=== PATIENT | female | born 1955 | race Caucasian/White ===

== ENCOUNTER 2017-06-22 12:07 | Inpatient (IN) | payer OTHER ==
[2017-06-22] VITALS (18 sets, daily range): BP systolic 107–143; BP diastolic 75–95; PULSE 92–126; RESP 18–36; TEMP 97.9–101.2; O2SAT 94–100
[~2017-06-22] VITALS: Ht 162.6 cm; Wt 55.0 kg
[~2017-06-22 12:07] MED LIST: DARV PO; PENI500T PO; Z.0.NO CURRENT MEDS
[2017-06-22] MEDS ORDERED: PROPOFOL 1000 MG/100 ML INJ 100 ML ONE ×2 (12:25)
[2017-06-22] MEDS ORDERED: SODIUM CHLOR 0.9% 1000 ML INJ 1,000 ML IV SCH ×6 (12:25→12:45)
[2017-06-22] MEDS ORDERED: SODIUM CHLORIDE 0.9% FLUSH 10 ML FLUSH IVF PRN ×2 (12:30)
[2017-06-22] MEDS ORDERED: SODIUM CHLORIDE 0.9% FLUSH 5 ML FLUSH IV FLUSH PRN ×4 (12:30→15:45)
[2017-06-22] MEDS ORDERED: ETOMIDATE 20 MG/10 ML VIAL IVP ONE ×2 (12:30)
[2017-06-22] MEDS ORDERED: methylPREDNISolone SOD SUCC 125 MG/2 ML VIAL IV PUSH ONE ×2 (12:45)
[2017-06-22] MEDS ORDERED: HYDROmorphone HCL PF 1 MG/ML VIAL IV PUSH ONE ×2 (12:45)
[2017-06-22] MEDS: RESP: ALBUTEROL 2.5 MG/IPRATROPIUM 0.5 MG NEB (SCH) INH ×10 (13:00→21:42)
[2017-06-22] MEDS ORDERED: SUCCINYLCHOLINE CHLORIDE 200 MG/10 ML VIAL ONE ×2 (13:15)
[2017-06-22 13:51] LABS: AUTOMATED NEUTROPHIL # 8.5 TH/MM3 (1.8-7.7); BASOPHIL % 0.2 % (0.0-2.0); HEMATOCRIT 49.8 % (35.0-46.0); HEMOGLOBIN 16.2 GM/DL (11.6-15.3); LYMPH % 6.9 % (9.0-44.0); LYMPHOCYTE # 0.7 TH/MM3 (1.0-4.8); MEAN CELL VOLUME 95.5 FL (80.0-100.0); MEAN CORPUSCULAR HEMOGLOBIN 31.2 PG (27.0-34.0); MEAN CORPUSCULAR HGB CONC 32.6 % (32.0-36.0); MONO % 4.8 % (0.0-8.0); MONOCYTE # 0.5 TH/MM3 (0-0.9); NEUT % 88.1 % (16.0-70.0); PLATELET COUNT 137 TH/MM3 (150-450); RED BLOOD COUNT 5.21 MIL/MM3 (4.00-5.30); RED CELL DISTRIBUTION WIDTH 13.2 % (11.6-17.2); WHITE BLOOD COUNT 9.6 TH/MM3 (4.0-11.0)
[2017-06-22 13:55] LABS: INTERNATIONAL NORMALIZED RATIO 1.4 RATIO; PROTHROMBIN TIME - PATIENT 15.8 SEC (9.8-11.6)
[2017-06-22 13:59] LABS: LACTIC ACID SEPSIS PROTOCOL 2.7 mmol/L (0.4-2.0)
[2017-06-22 14:01] LABS: ALBUMIN 3.7 GM/DL (3.4-5.0); BICARBONATE 23.4 MEQ/L (21.0-32.0); BLOOD UREA NITROGEN 67 MG/DL (7-18); CALCIUM 8.7 MG/DL (8.5-10.1); CHLORIDE 104 MEQ/L (98-107); CREATININE 3.48 MG/DL (0.50-1.00); GLOMERULAR FILTRATION RATE 13 ML/MIN (>89); GLUCOSE,RANDOM 126 MG/DL (74-106); SODIUM (NA) 140 MEQ/L (136-145)
[2017-06-22 14:09] LABS: ALKALINE PHOSPHATASE 88 U/L (45-117); TOTAL BILIRUBIN ADULT 0.5 MG/DL (0.2-1.0); TOTAL PROTEIN 8.7 GM/DL (6.4-8.2)
--- NOTE | 2017-06-22 14:15 | RADRPT ---
EXAM DATE/TIME: 06/22/2017 13:10 [facility] COMPARISON: No previous studies available for comparison. INDICATIONS : Post intubation and OG tube placement. MEDICAL HISTORY : Unobtainable. SURGICAL HISTORY : Unobtainable. ENCOUNTER: Initial ACUITY: 1 day PAIN SCORE: Non-responsive. LOCATION: Bilateral chest FINDINGS: ET and nasogastric tube in good position. The lungs are hyperinflated but clear. The heart and pulmo nary vascularity are normal. CONCLUSION: Support apparatus in good position. Rudy Meng MD FACR on June 22, 2017 at 14:13 Board Certified Radiologist. This report was verified electronically.
[2017-06-22 14:24] LABS: ACETAMINOPHEN LESS THAN 2.0 MCG/ML (10.0-30.0)
[2017-06-22 14:27] LABS: AMORPHOUS SEDIMENT, URINE FEW; BACTERIA, URINE RARE /hpf; BILIRUBIN, URINE NEG (NEG); BLOOD, URINE MOD (NEG); GLUCOSE,URINE TRACE mg/dL (NEG); HYALINE CAST, URINE 3 /lpf (RARE); KETONE, URINE NEG (NEG); MUCUS URINE FEW /lpf (OCC); NITRITE,URINE NEG (NEG); SQUAMOUS EPITHELIAL CELL URINE 4 /hpf (0-5); URINE COLOR YELLOW (YELLW/STRAW); URINE LEUKOCYTE ESTERASE TRACE (NEG)
[2017-06-22 14:29] LABS: ALT (GPT) 7549 U/L (10-53)
--- NOTE | 2017-06-22 14:33 | RADRPT ---
EXAM DATE/TIME: 06/22/2017 14:22 [facility] COMPARISON: No previous studies available for comparison. INDICATIONS : Found unresponsive. RADIATION DOSE: 31.29 CTDIvol (mGy) MEDICAL HISTORY : Non-responsive. SURGICAL HISTORY : Non-responsive. ENCOUNTER: Initial ACUITY: 1 day PAIN SCALE: Non-responsive LOCATION: cranial TECHNIQUE: Multiple contiguous axial images were obtained of the head. Using automated exposure control and adj ustment of the mA and/or kV according to patient size, radiation dose was kept as low as reasonably a chievable to obtain optimal diagnostic quality images. DICOM format image data is available electro nically for review and comparison. FINDINGS: There are findings of ischemic infarct involving the insular cortex on the left side with loss of the cam-white junction. There is no significant mass effect or midline shift. No extra-axial fluid lawanda ections are identified. Posterior fossa structures are unremarkable. The infarct measures approximate ly 2.5 cm in diameter. CONCLUSION: 1. Acute ischemic infarct involving the left insular cortex Jose Richard MD on June 22, 2017 at 14:30 Board Certified Radiologist. This report was verified electronically.
[2017-06-22 14:38] LABS: AST (GOT) 13264 U/L (15-37)
[2017-06-22] MEDS ORDERED: CHLORHEXIDINE GLUCONATE 2 % 1 PACK (2 CLOTHS) TOP PRN ×2 (15:15)
[2017-06-22] MEDS ORDERED: CEFEPIME INJ 1,000 MG in SODIUM CHLORIDE 0.9% INJ 100 ML IV ONE ×4 (15:15)
[2017-06-22] MEDS ORDERED: MAGNESIUM HYDROXIDE SUSP 30 ML CUP PO PRN ×2 (15:15)
[2017-06-22] MEDS ORDERED: MISCELLANEOUS NURSING INFORMATION XX SCH ×2 (15:15)
[2017-06-22] MEDS ORDERED: fentaNYL DRIP 250 ML IV PRN ×2 (15:15)
[2017-06-22] MEDS ORDERED: PROPOFOL 1000 MG/100 ML INJ 100 ML IV PRN ×2 (15:15)
[2017-06-22] MEDS ORDERED: VANCOMYCIN INJ 850 MG in SODIUM CHLOR 0.9% 250 ML INJ 250 ML IV ONE ×4 (15:15)
[2017-06-22] MEDS ORDERED: LACTULOSE SYRUP 20 GM/30 ML CUP PO PRN ×2 (15:15)
[2017-06-22] MEDS ORDERED: SODIUM CHLORIDE 0.9% FLUSH 10 ML FLUSH IV FLUSH PRN ×2 (15:15)
[2017-06-22] MEDS ORDERED: SENNOSIDES 8.6 MG TAB PO PRN ×2 (15:15)
[2017-06-22] MEDS ORDERED: ONDANSETRON HCL 4 MG/2 ML VIAL IV PRN ×2 (15:15)
[2017-06-22] MEDS ORDERED: BISACODYL 10 MG SUPP RECTAL PRN ×2 (15:15)
[2017-06-22] MEDS ORDERED: ACETAMINOPHEN 325 MG TAB PO PRN ×2 (15:15)
--- NOTE | 2017-06-22 15:31 | PD ---
HPI Chief Complaint: Respiratory Distress Time Seen by Provider: 12:25 Travel History International Travel<30 days: No Contact w/Intl Traveler<30days: No Traveled to known affect area: No History of Present Illness HPI This is a 62-year-old female who presents to the emergency department having been found in a chair poorly responsive. 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 Today is Tuesday. EMS said the patient had urinated on herself. She was poorly responsive and had pinpoint pupils. They administered 0.4 of Narcan at which point she moved all of her extremities but didn't vocalize anything intelligible. PFSH Past Medical History Respiratory: Yes (COPD) Tetanus Vaccination: Unknown Past Surgical History Abdominal Surgery: Yes Hysterectomy: Yes Social History Alcohol Use: No (unknown ) Tobacco Use: Yes (1 PACK A DAY FOR 20 YEARS) Substance Use: No (unknown ) Allergies-Medications (Allergen,Severity, Reaction): Coded Allergies: No Known Allergies (Verified , 12/11/08) Reported Meds & Prescriptions Reported Meds & Active Scripts Active Review of Systems ROS Limitations: Altered Mental Status Physical Exam Narrative GENERAL: Disheveled SKIN: Dry with skin tenting HEAD: Atraumatic. Normocephalic. EYES: Pupils 4 mm, equal and reactive no injection or drainage. ENT: Dry mucous membranes NECK: Trachea midline. CARDIOVASCULAR: Tachycardic. No murmur appreciated. RESPIRATORY: Tachypneic, prolonged expiratory phase GASTROINTESTINAL: Abdomen soft, non-tender, nondistended. MUSCULOSKELETAL: 1+ dependent edema NEUROLOGICAL: Moves all extremities. Gaze deviation to the left. Does not follow commands or make sounds. Data Data Last Documented VS Vital Signs Date Time Temp Pulse Resp B/P (MAP) Pulse Ox O2 Delivery O2 Flow Rate FiO2 06/22/17 14:32 99.7 96 18 121/80 (94) 100 Ventilator 50 Orders Orders Propofol 1000 Mg/100 Ml Inj (Diprivan 10 (06/22/17 12:25) Electrocardiogram (06/22/17 12:25) Ammonia (06/22/17 12:25) Complete Blood Count With Diff (06/22/17 12:25) Comprehensive Metabolic Panel (06/22/17 12:25) Creatine Kinase (Cpk) (06/22/17 12:25) Prothrombin Time / Inr (Pt) (06/22/17 12:25) Act Partial Throm Time (Ptt) (06/22/17 12:25) Troponin I (06/22/17 12:25) Thyroid Stimulating Hormone (06/22/17 12:25) Urinalysis - C+S If Indicated (06/22/17 12:25) Lactic Acid Sepsis Protocol (06/22/17 12:25) Arterial Blood Gas (Abg) (06/22/17 12:25) Blood Culture (06/22/17 12:25) Chest, Single Ap (06/22/17 12:25) Ct Brain W/O Iv Contrast(Rout) (06/22/17 12:25) Blood Glucose (06/22/17 12:25) Ecg Monitoring (06/22/17 12:25) Iv Access Insert/Monitor (06/22/17 12:25) Oximetry (06/22/17 12:25) Sodium Chloride 0.9% Flush (Ns Flush) (06/22/17 12:30) Sodium Chlor 0.9% 1000 Ml Inj (Ns 1000 M (06/22/17 12:25) Drug Screen, Random Urine (06/22/17 12:25) Alcohol (Ethanol) (06/22/17 12:25) Tylenol (Acetaminophen) (06/22/17 12:25) Salicylates (Aspirin) (06/22/17 12:25) Etomidate Inj (Amidate Inj) (06/22/17 12:30) Albuterol-Ipratropium Neb (Duoneb Neb) (06/22/17 12:30) Sodium Chloride 0.9% Flush (Ns Flush) (06/22/17 12:30) Restraints Non-Violent DENISE.Q3H (06/22/17 12:30) ^ Infusion (06/22/17 12:30) RASS (06/22/17 12:30) Neurological Rass Scale DENISE.Q2H (06/22/17 12:30) Neurological Rass Scale Q30MX2,Q2HX4,Q4H (06/22/17 12:30) Sodium Chlor 0.9% 1000 Ml Inj (Ns 1000 M (06/22/17 12:45) Sodium Chlor 0.9% 1000 Ml Inj (Ns 1000 M (06/22/17 12:45) Methylprednisolone So Succ Inj (Solumedr (06/22/17 12:45) Urinary Catheter Insert/Apply (06/22/17 12:43) Vahid-Gastric Tube Insert/Mon (06/22/17 12:43) Hydromorphone Pf Inj (Dilaudid Pf Inj) (06/22/17 12:45) Succinylcholine Inj (Quelicin Inj) (06/22/17 13:15) CKMB (06/22/17 12:30) CKMB% (06/22/17 12:30) Urine Culture (06/22/17 13:30) Lactic Acid (06/22/17 14:34) Vancomycin Inj (Vancomycin Inj) (06/22/17 15:15) Cefepime Inj (Maxipime Inj) (06/22/17 15:15) Admit To Inpatient (06/22/17 ) Code Status (06/22/17 15:09) Vital Signs (Adult) DENISE.Q1H (06/22/17 15:09) Activity Bed Rest (06/22/17 15:09) Neuro Checks . ORDERED (06/22/17 15:09) Intake + Output Q1H (06/22/17 15:09) Bedside Glucose DENISE.BGM (06/22/17 15:09) Insert Ng Tube (06/22/17 15:09) Diet Npo (06/22/17 Dinner) Sodium Chlor 0.9% 1000 Ml Inj (Ns 1000 M (06/22/17 15:09) Sodium Chloride 0.9% Flush (Ns Flush) (06/22/17 15:15) Sodium Chloride 0.9% Flush (Ns Flush) (06/22/17 21:00) Acetaminophen (Tylenol) (06/22/17 15:15) Famotidine Inj (Pepcid Inj) (06/22/17 21:00) Lorazepam Inj (Ativan Inj) (06/22/17 15:15) Artificial Tears Opth Soln (Tears Natura (06/22/17 18:00) Ondansetron Inj (Zofran Inj) (06/22/17 15:15) Albuterol-Ipratropium Neb (Duoneb Neb) (06/22/17 16:00) Albuterol Neb (Albuterol Neb) (06/22/17 15:15) Complete Blood Count With Diff (06/23/17 04:00) Comprehensive Metabolic Panel (06/23/17 04:00) Creatine Kinase (Cpk) (06/22/17 15:09) Troponin I (06/22/17 22:00) Troponin I (06/23/17 04:00) Act Partial Throm Time (Ptt) (06/23/17 04:00) Prothrombin Time / Inr (Pt) (06/23/17 04:00) Magnesium (Mg) (06/23/17 04:00) Phosphorus (Po4) (06/23/17 04:00) Lactic Acid (06/23/17 04:00) Blood Culture (06/22/17 15:09) Echo 2d Comp With Doppler (06/22/17 15:09) Juvenile Officer / Telemetry DENISE.Q8H (06/22/17 15:09) Heparin Inj (Heparin Inj) (06/22/17 15:15) ^ Initiate Protocol (06/22/17 15:09) Instruction (06/22/17 15:09) [facility] [place] Nursing Information (06/22/17 15:15) Chlorhexidine 2% Cloth (Chlorhexidine 2% (06/23/17 04:00) Chlorhexidine 2% Cloth (Chlorhexidine 2% (06/22/17 15:15) [facility] Pcr Surveillance (06/22/17 15:09) Docusate Sodium-Senna (Indy-Colace) (06/22/17 21:00) Magnesium Hydroxide Liq (Milk Of Magnesi (06/22/17 15:15) Sennosides (Senokot) (06/22/17 15:15) Bisacodyl Supp (Dulcolax Supp) (06/22/17 15:15) Lactulose Liq (Lactulose Liq) (06/22/17 15:15) Inpatient Certification (06/22/17 ) Admit Order (Ed Use Only) (06/22/17 15:12) Labs Laboratory Tests Test 06/22/17 12:30 06/22/17 12:40 06/22/17 13:00 06/22/17 13:30 White Blood Count 9.6 TH/MM3 Red Blood Count 5.21 MIL/MM3 Hemoglobin 16.2 GM/DL Hematocrit 49.8 % Mean Corpuscular Volume 95.5 FL Mean Corpuscular Hemoglobin 31.2 PG Mean Corpuscular Hemoglobin Concent 32.6 % Red Cell Distribution Width 13.2 % Platelet Count 137 TH/MM3 Mean Platelet Volume 10.0 FL Neutrophils (%) (Auto) 88.1 % Lymphocytes (%) (Auto) 6.9 % Monocytes (%) (Auto) 4.8 % Eosinophils (%) (Auto) 0.0 % Basophils (%) (Auto) 0.2 % Neutrophils # (Auto) 8.5 TH/MM3 Lymphocytes # (Auto) 0.7 TH/MM3 Monocytes # (Auto) 0.5 TH/MM3 Eosinophils # (Auto) 0.0 TH/MM3 Basophils # (Auto) 0.0 TH/MM3 CBC Comment DIFF FINAL Differential Comment Prothrombin Time 15.8 SEC Prothromb Time International Ratio 1.4 RATIO Activated Partial Thromboplast Time 24.3 SEC Blood Urea Nitrogen 67 MG/DL Creatinine 3.48 MG/DL Random Glucose 126 MG/DL Total Protein 8.7 GM/DL Albumin 3.7 GM/DL Calcium Level 8.7 MG/DL Alkaline Phosphatase 88 U/L Aspartate Amino Transf (AST/SGOT) 54854 U/L Alanine Aminotransferase (ALT/SGPT) 7549 U/L Total Bilirubin 0.5 MG/DL Sodium Level 140 MEQ/L Potassium Level 4.9 MEQ/L Chloride Level 104 MEQ/L Carbon Dioxide Level 23.4 MEQ/L Anion Gap 13 MEQ/L Estimat Glomerular Filtration Rate 13 ML/MIN Lactic Acid Level 2.7 mmol/L Ammonia 71 MCMOL/L Total Creatine Kinase 754 U/L Creatine Kinase MB 7.4 NG/ML Creatine Kinase MB % 1.0 % Troponin I 2.20 NG/ML Thyroid Stimulating Hormone 3rd Gen 0.283 uIU/ML Salicylates Level 4.9 MG/DL Acetaminophen Level LESS THAN 2.0 MCG/ML Ethyl Alcohol Level LESS THAN 3 MG/DL Blood Gas Puncture Site RT RADIAL Blood Gas Patient Temperature 98.6 Blood Gas HCO3 22 mmol/L Blood Gas Base Excess -2.7 mmol/L Blood Gas Oxygen Saturation 91 % Arterial Blood pH 7.38 Arterial Blood Partial Pressure CO2 38 mmHg Arterial Blood Partial Pressure O2 74 mmHG Arterial Blood Oxygen Content 20.6 Vol % Arterial Blood Carboxyhemoglobin 2.5 % Arterial Blood Methemoglobin 0.8 % Blood Gas Hemoglobin 16.2 G/DL Oxygen Delivery Device VENTILATOR Blood Gas Ventilator Setting PRVC/AC Blood Gas Inspired Oxygen 50 % Urine Color YELLOW Urine Turbidity HAZY Urine pH 6.0 Urine Specific [place] 1.015 Urine Protein 100 mg/dL Urine Glucose (UA) TRACE mg/dL Urine Ketones NEG mg/dL Urine Occult Blood MOD Urine Nitrite NEG Urine Bilirubin NEG Urine Urobilinogen LESS THAN 2.0 MG/DL Urine Leukocyte Esterase TRACE Urine RBC 1 /hpf Urine WBC 6 /hpf Urine Squamous Epithelial Cells 4 /hpf Urine Amorphous Sediment FEW Urine Bacteria RARE /hpf Urine Hyaline Casts 3 /lpf Urine Granular Casts 1 /lpf Urine Mucus FEW /lpf Microscopic Urinalysis Comment CATH-CULTURE IND Urine Opiates Screen NEG Urine Barbiturates Screen NEG Urine Amphetamines Screen NEG Urine Benzodiazepines Screen POS Urine Cocaine Screen NEG Urine Cannabinoids Screen POS MDM Medical Decision Making Medical Screen Exam Complete: Yes Emergency Medical Condition: Yes Interpretation(s) Temperature is 101.2, tachycardic, tachypneic No leukocytosis Renal insufficiency Transaminitis CK is 754 Ammonia 71 Troponin is 2.2 Lactic acid is 2.7 Urine drug screen is positive for benzodiazepines and cannabinoid Urinalysis: 6 white blood cells Last [address] 06/22/17 1225 Signed Impressions: Service Date/Time: Thursday, June 22, 2017 14:22 - CONCLUSION: 1. Acute ischemic infarct involving the left insular cortex Jose Richard MD Chest X-Ray 06/22/17 1225 Signed Impressions: Service Date/Time: Thursday, June 22, 2017 13:10 - CONCLUSION: Support apparatus in good position. Rudy Meng MD FACR Differential Diagnosis Substance overdose, stroke, rhabdomyolysis, infection Narrative Course This is a 62-year-old female who presents to the emergency department poorly responsive having been found in a chair that she had moved from in 2 days. She has a neurologic exam concerning for stroke. She was acutely dyspneic and tachypneic, and not protecting her airway so she was intubated in the emergency department. She was febrile and tachycardic and cultures were obtained and she was given broad-spectrum antibiotics. She was given IV hydration. She was found to have a troponin of 2.2. A decision was made not to anticoagulate her given CT findings of an acute stroke. She is not a TPA candidate as we don't know when the onset of symptoms was and it does appear to be at least 24 hours ago. Patient also has acute hepatitis. She'll be admitted to the intensive care unit for close management. Critical Care Narrative Aggregate critical care time was 45 minutes. Time to perform other separately billable procedures was not included in the critical care time. My time did not include minutes spent treating any other patients simultaneously or on activities that did not directly contribute to the patient's treatment. The services I provided to this patient were to treat and/or prevent clinically significant deterioration that could result in: disability, I provided critical care services requiring my management, as noted below: Chart data review, documentation time, medication orders and management, vital sign assessments/reviewing monitor data, ordering and reviewing lab tests, ordering and interpreting/reviewing x-rays and diagnostic studies, care of the patient and discussion of the patient with the admitting physicians. Procedures Procedure Narrative After the risks and benefits were discussed the following procedure was performed: INTUBATION: The patient was put in optimal position for the procedure. Rapid sequence intubation was initiated by me using 20 milligrams of etomidate IV and 50 milligrams of rocuronium IV. The patient was intubated with a 8.0 cuffed endotracheal tube. Tube placement was confirmed by visualization of the tube and balloon passing through the cords, capnometry and subsequent chest x-ray. Breath sounds were equal and well aerated bilaterally postintubation. No breath sounds over stomach. Patient tolerated procedure well. Physician Communication Physician Communication Discussed with Dr. Koenig Diagnosis Primary Impression: Stroke Qualified Codes: I63.9 - Cerebral infarction, unspecified Admitting Information Admitting Physician Requests: Admit Halle Power MD Jun 22, 2017 15:31
[2017-06-22] MEDS ORDERED: LABETALOL HCL 100 MG/20 ML VIAL IV PRN ×2 (15:45)
[2017-06-22] MEDS ORDERED: DEXTROSE 50% IN WATER 50 ML VIAL(D50) IV PUSH PRN (15:45)
[2017-06-22] MEDS ORDERED: GLUCAGON 1 MG/ML VIAL OTHER PRN ×2 (15:45)
--- NOTE | 2017-06-22 15:45 | HHI.HP ---
[facility] Service Critical Care Medicine Primary Care Physician No Primary Care Physician Admission Diagnosis Acute respiratory failure stroke Diagnosis: (1) Acute respiratory failure Diagnosis: Principal (2) Anxiety Diagnosis: Principal (3) COPD (chronic obstructive pulmonary disease) Diagnosis: Principal (4) Chronically on benzodiazepine therapy Diagnosis: Principal (5) Low TSH level Diagnosis: Principal (6) Elevated troponin Diagnosis: Principal (7) Elevated CPK Diagnosis: Principal (8) Serum ammonia increased Diagnosis: Principal (9) Elevated transaminase level Diagnosis: Principal (10) Lactic acidosis Diagnosis: Principal (11) Hyperglycemia Diagnosis: Principal (12) Tobacco abuse Diagnosis: Principal (13) Tetrahydrocannabinol (THC) use disorder, mild, abuse Diagnosis: Principal (14) Acute kidney injury Diagnosis: Principal (15) Thrombocytopenia Diagnosis: Principal (16) Polycythemia Diagnosis: Principal (17) CVA (cerebral vascular accident) Diagnosis: Principal (18) Stroke Diagnosis: Principal (19) Incontinence Diagnosis: Principal (20) Cystitis Diagnosis: Principal Chief Complaint: Last seen her normal health Tuesday unresponsive on couch Travel History International Travel<30 Days: No Contact w/Intl Traveler <30 Da: No Traveled to Known Affected Are: No Sepsis Criteria Severe Sepsis (+one): Lactate >2 History of Present Illness This is a 62-year-old female. Date of admission 06/22/2017. Past medical history includes COPD, depression and ongoing tobaccoism. She chronically uses alprazolam. 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 She presents to [facility] with a history of since Tuesday he's been unable to get her out of the chair. EMS said the patient had urinated on herself. She was poorly responsive and had 1 mm pinpoint pupils. They administered 0.4 of Narcan at which point she moved all of her extremities but didn't vocalize anything intelligible. She was emergently intubated using succinylcholine and etomidate. Included CT the brain which revealed 2.5 cm left insular cortex CVA, patient was noted be in acute kidney injury with a creatinine of 3.8. Lactic acid 2.7. Elevated transaminases/pneumonia and elevated troponin of 2.2. EKG showed normal sinus rhythm with nonspecific ST-T changes. UA revealed cystitis. Urine toxicology screen positive for benzodiazepine and THC. Review of Systems ROS Limitations: Intubated Past Family Social History Allergies: Coded Allergies: No Known Allergies (Verified , 2/18/09) Past Medical History COPD Depression Chronic benzodiazepine use Past Surgical History Appendectomy Reported Medications Alprazolam 0.5 mg as needed Oxybutynin Active Ordered Medications Reviewed in EMR Family History Mother and father is unknown/not documented Social History Positive tobacco is one pack per day 20 years. Unknown alcohol or IV drug use. Positive for THC Physical Exam Vital Signs Vital Signs Date Time Temp Pulse Resp B/P (MAP) Pulse Ox O2 Delivery O2 Flow Rate FiO2 06/22/17 15:32 96 50 06/22/17 15:24 99.6 92 18 117/78 (91) 99 Ventilator 50 06/22/17 14:32 99.7 96 18 121/80 (94) 100 Ventilator 50 06/22/17 14:20 100 100 06/22/17 14:00 99.8 96 18 131/86 (101) 100 Ventilator 50 06/22/17 13:30 98 18 130/82 (98) 98 Ventilator 50 06/22/17 13:00 105 18 133/95 (108) 98 Ventilator 50 06/22/17 12:30 98 50 06/22/17 12:22 50 06/22/17 12:22 124 20 138/84 (102) 99 Ventilator 50 06/22/17 12:15 36 94 Non-Rebreather 100 06/22/17 12:15 101.2 126 34 143/90 (107) 94 06/22/17 12:15 126 36 90 Non-Rebreather Physical Exam GENERAL: 62 oh female, critically ill currently orotracheally intubated SKIN: Warm and dry. No rash. HEAD: Atraumatic. Normocephalic. EYES: Pupils equal and round about 1 mm bilaterally and sluggish. No scleral icterus. No injection or drainage. ENT: No nasal bleeding or discharge. Mucous membranes pink and moist. NECK: Trachea midline. No JVD. CARDIOVASCULAR: Regular rate and rhythm. S1, S2. No cervical without murmur RESPIRATORY: No accessory muscle use. Clear to auscultation. Breath sounds equal bilaterally. GASTROINTESTINAL: Abdomen soft, non-tender, nondistended. No bowel sounds are appreciated MUSCULOSKELETAL: Extremities 1+ pitting lower extremity edema. No obvious deformities. NEUROLOGICAL: GCS 3T. Positive coronary fix. Positive gag. Currently not withdrawing to pain status post intubation Laboratory Laboratory Tests Test 06/22/17 12:30 06/22/17 12:40 06/22/17 13:00 06/22/17 13:30 White Blood Count 9.6 Red Blood Count 5.21 Hemoglobin 16.2 Hematocrit 49.8 Mean Corpuscular Volume 95.5 Mean Corpuscular Hemoglobin 31.2 Mean Corpuscular Hemoglobin Concent 32.6 Red Cell Distribution Width 13.2 Platelet Count 137 Mean Platelet Volume 10.0 Neutrophils (%) (Auto) 88.1 Lymphocytes (%) (Auto) 6.9 Monocytes (%) (Auto) 4.8 Eosinophils (%) (Auto) 0.0 Basophils (%) (Auto) 0.2 Neutrophils # (Auto) 8.5 Lymphocytes # (Auto) 0.7 Monocytes # (Auto) 0.5 Eosinophils # (Auto) 0.0 Basophils # (Auto) 0.0 CBC Comment DIFF FINAL Differential Comment Prothrombin Time 15.8 Prothromb Time International Ratio 1.4 Activated Partial Thromboplast Time 24.3 Blood Urea Nitrogen 67 Creatinine 3.48 Random Glucose 126 Total Protein 8.7 Albumin 3.7 Calcium Level 8.7 Alkaline Phosphatase 88 Aspartate Amino Transf (AST/SGOT) 66008 Alanine Aminotransferase (ALT/SGPT) 7549 Total Bilirubin 0.5 Sodium Level 140 Potassium Level 4.9 Chloride Level 104 Carbon Dioxide Level 23.4 Anion Gap 13 Estimat Glomerular Filtration Rate 13 Lactic Acid Level 2.7 Ammonia 71 Total Creatine Kinase 754 Creatine Kinase MB 7.4 Creatine Kinase MB % 1.0 Troponin I 2.20 Thyroid Stimulating Hormone 3rd Gen 0.283 Salicylates Level 4.9 Acetaminophen Level LESS THAN 2.0 Ethyl Alcohol Level LESS THAN 3 Blood Gas Puncture Site RT RADIAL Blood Gas Patient Temperature 98.6 Blood Gas HCO3 22 Blood Gas Base Excess -2.7 Blood Gas Oxygen Saturation 91 Arterial Blood pH 7.38 Arterial Blood Partial Pressure CO2 38 Arterial Blood Partial Pressure O2 74 Arterial Blood Oxygen Content 20.6 Arterial Blood Carboxyhemoglobin 2.5 Arterial Blood Methemoglobin 0.8 Blood Gas Hemoglobin 16.2 Oxygen Delivery Device VENTILATOR Blood Gas Ventilator Setting PRVC/AC Blood Gas Inspired Oxygen 50 Urine Color YELLOW Urine Turbidity HAZY Urine pH 6.0 Urine Specific [place]ville 1.015 Urine Protein 100 Urine Glucose (UA) TRACE Urine Ketones NEG Urine Occult Blood MOD Urine Nitrite NEG Urine Bilirubin NEG Urine Urobilinogen LESS THAN 2.0 Urine Leukocyte Esterase TRACE Urine RBC 1 Urine WBC 6 Urine Squamous Epithelial Cells 4 Urine Amorphous Sediment FEW Urine Bacteria RARE Urine Hyaline Casts 3 Urine Granular Casts 1 Urine Mucus FEW Microscopic Urinalysis Comment CATH-CULTURE IND Urine Opiates Screen NEG Urine Barbiturates Screen NEG Urine Amphetamines Screen NEG Urine Benzodiazepines Screen POS Urine Cocaine Screen NEG Urine Cannabinoids Screen POS Date/Time Source Procedure Growth Status 06/22/17 12:20 Blood Peripheral Aerobic Blood Culture Pending Received 06/22/17 12:20 Blood Peripheral Anaerobic Blood Culture Pending Received 06/22/17 13:30 Urine Catheterized Urine Urine Culture Pending Received Result Diagram: 06/22/17 1230 06/22/17 1230 Imaging Last Impressions Head CT 06/22/17 1225 Signed Impressions: Service Date/Time: Thursday, June 22, 2017 14:22 - CONCLUSION: 1. Acute ischemic infarct involving the left insular cortex Jose Richard MD Chest X-Ray 06/22/17 1225 Signed Impressions: Service Date/Time: Thursday, June 22, 2017 13:10 - CONCLUSION: Support apparatus in good position. Rudy Meng MD FACR Caprini VTE Risk Assessment Caprini VTE Risk Assessment: Mod/High Risk (score >= 2) Caprini Risk Assessment Model Point Value = 1 Point Value = 2 Point Value = 3 Point Value = 5 Age 41-60 Minor surgery BMI > 25 kg/m2 Swollen legs Varicose veins or History of unexplained or recurrent spontaneous Oral contraceptives or hormone replacement Sepsis (< 1 month) Serious lung disease, including pneumonia (< 1 month) Abnormal pulmonary function Acute myocardial infarction Congestive heart failure (< 1 month) History of inflammatory bowel disease Medical patient at bed rest Age 61-74 Arthroscopic surgery Major open surgery (> 45 min) Laparoscopic surgery (> 45 min) Malignancy Confined to bed (> 72 hours) Immobilizing plaster cast Central venous access Age >= 75 History of VTE Family history of VTE Factor V Leiden Prothrombin [id number] Lupus anticoagulant Anticardiolipin antibodies Elevated serum homocysteine Heparin-induced thrombocytopenia Other congenital or acquired thrombophilia Stroke (< 1 month) Elective arthroplasty Hip, pelvis, or leg fracture Acute spinal cord injury (< 1 month) Prophylaxis Regimen Total Risk Factor Score Risk Level Prophylaxis Regimen 0-1 Low Early ambulation 2 Moderate Order ONE of the following: *Sequential Compression Device (SCD) *Heparin 5000 units SQ BID 3-4 Higher Order ONE of the following medications: *Heparin 5000 units SQ TID *Enoxaparin/Lovenox 40 mg SQ daily (WT < 150 kg, CrCl > 30 mL/min) *Enoxaparin/Lovenox 30 mg SQ daily (WT < 150 kg, CrCl > 10-29 mL/min) *Enoxaparin/Lovenox 30 mg SQ BID (WT < 150 kg, CrCl > 30 mL/min) AND/OR *Sequential Compression Device (SCD) 5 or more Highest Order ONE of the following medications: *Heparin 5000 units SQ TID (Preferred with Epidurals) *Enoxaparin/Lovenox 40 mg SQ daily (WT < 150 kg, CrCl > 30 mL/min) *Enoxaparin/Lovenox 30 mg SQ daily (WT < 150 kg, CrCl > 10-29 mL/min) *Enoxaparin/Lovenox 30 mg SQ BID (WT < 150 kg, CrCl > 30 mL/min) AND *Sequential Compression Device (SCD) Assessment and Plan Assessment and Plan Neuro/Psych: Left insular cortex CVA 2.5 cm Chronic benzodiazepine use THC use CT head 06/22 revealed 2.5 cm left insular cortex CVA MRI brain/MRA brain and carotid Dopplers ordered. 2-D echocardiogram ordered. Hemaglobin A1c/lipids ordered. Goal keep systolic blood pressure less than 220, diastolic was less than 120. Start on baby aspirin. Holding Hmg Co reductase secondary to elevated transaminases. CV: Hypertension Lactic acidosis Elevated troponin EKG revealed normal sinus rhythm 98. Nonspecific ST-T changes. Cycle troponins 2-D echocardiogram ordered. Baby aspirin 81 no grams daily Resp: Acute hypoxemic respiratory failure [facility] 16500/10/28/49 Ventilator bundle Bronchodilator therapy every 6 hours with albuterol nebs every 2 hours. Dyspnea Spontaneous breathing trials daily GI: Elevated transaminases Elevated ammonia Place NG tube to LIWS Famotidine for GI prophylaxis Docusate sodium/10 one tablet twice a day for bowel regimen Hepatic ultrasound ordered : History of incontinence Persaud catheter placed for accurate I's and O's in a critically ill patient Endo: Hyperglycemia Low TSH Sliding-scale insulin with Accu-Cheks to maintain euglycemia/every 6 hours Renal: Acute kidney injury Possible secondary to dehydration. Urine electrolytes/eosinophils pending Renal ultrasound Monitor urine output Accurate I's and O's Heme: Polycythemia Thrombocytopenia Monitor CBC daily. Follow trends ID: Cystitis Piperacillin/tazobactam day 1. Check UA culture FEN: Replace electrolytes as clinically indicated MSK: PT/OT evaluate and treat Access - Utilize peripheral IV. Central line if indicated Prophylaxis - GI - famotidine - DVT - SCD/heparin subcutaneous Critical Care: The total critical care time was 35 minutes. Time to perform other separately billable procedures was not included in the critical care time. Code Status Full code full code Discussed Condition With ED physician Dr. Power. No family available. Care plan discussed all questions answered. Problem Qualifiers (1) COPD (chronic obstructive pulmonary disease): Qualified Codes: J43.9 - Emphysema, unspecified (2) CVA (cerebral vascular accident): Qualified Codes: I63.9 - Cerebral infarction, unspecified (3) Stroke: Qualified Codes: I63.9 - Cerebral infarction, unspecified (4) Incontinence: Qualified Codes: R32 - Unspecified urinary incontinence Lewis Koenig MD Jun 22, 2017 15:45
[2017-06-22] MEDS ORDERED: niCARdipine INJ 25 MG in SODIUM CHLOR 0.9% 250 ML INJ 250 ML IV PRN ×4 (16:00)
[2017-06-22] MEDS: SODIUM CHLOR 0.9% 1000 ML INJ 1,000 ML IV SCH ×2 (16:06)
[2017-06-22] MEDS: HEPARIN SODIUM - SQ 10,000 UNITS/ML VIAL SQ SCH ×2 (16:06)
[2017-06-22] MEDS: INSULIN ASPART SUPPLEMENTAL SCALE SQ SCH ×4 (16:54→21:00)
--- NOTE | 2017-06-22 16:54 | RADRPT ---
EXAM DATE/TIME: 06/22/2017 15:56 [facility] COMPARISON: No previous studies available for comparison. INDICATIONS : Cerebrovascular accident. MEDICAL HISTORY : Chronic obstructive pulmonary disease. Tobacco use. Unable to obtain further medical information. SURGICAL HISTORY : Hysterectomy. Abdominal surgery. Unable to obtain ENCOUNTER: Initial ACUITY: 1 day PAIN SCORE: Nonresponsive. LOCATION: Bilateral neck PEAK SYSTOLIC VELOCITIES (cm/sec): ICA/CCA RATIO: Right: 1.5 Left: 0.9 ICA: Right: 74.6 Left: 59.3 CCA: Right: 49.3 Left: 65.4 ECA: Right: 38.4 Left: 34.1 VERTEBRAL: Right: 38.3 antegrade Left: 40.5 antegrade Elevated flow velocities and ICA/CCA ratios have been found to correlate with increased degrees of vessel stenosis, calculated as percentage of diameter relative to a normal segment of distal ICA/CCA FINDINGS: RIGHT CAROTID: No significant stenosis is visualized. The waveforms are within normal limits. LEFT CAROTID: No significant stenosis is visualized. The waveforms are within normal limits. VERTEBRAL ARTERIES: Antegrade flow is seen in both vertebral arteries. MISCELLANEOUS: None. CONCLUSION: No evidence of flow-limiting carotid stenosis. Christopher Leonardo MD on June 22, 2017 at 16:52 Board Certified Radiologist. This report was verified electronically.
[2017-06-22] MEDS: ARTIFICIAL TEARS OPTH SOLN 15 ML BTL EACH EYE SCH ×2 (17:25)
[2017-06-22] MEDS: LACTULOSE SYRUP 20 GM/30 ML CUP PO SCH ×4 (17:25→21:00)
[2017-06-22] MEDS: PIPERACIL-TAZO 2.25 GM PREMIX 50 ML IV SCH ×4 (17:25→22:50)
--- NOTE | 2017-06-22 17:33 | RADRPT ---
EXAM DATE/TIME: 06/22/2017 16:30 [facility] COMPARISON: No previous studies available for comparison. INDICATIONS : Increased lab values. MEDICAL HISTORY : Chronic obstructive pulmonary disease. Tobacco use. Unable to obtain further medical information. SURGICAL HISTORY : Hysterectomy. Abdominal surgery. Unable to obtain further. ENCOUNTER: Initial ACUITY: 1 day PAIN SCORE: Nonresponsive. LOCATION: Abdomen. MEASUREMENTS: LIVER: 18.6 cm length COMMON DUCT: 4 mm RIGHT KIDNEY: 11.0 x 5.0 x 4.9 cm LEFT KIDNEY: 11.9 x 4.4 x 5.9 cm SPLEEN: 11.4 cm length AORTA: 2.2cm maximal FINDINGS: LIVER: Normal echotexture without focal lesion or ductal dilatation. COMMON DUCT: No intraluminal mass or stone visualized. GALLBLADDER: Distended with internal debris. Moderate wall thickening. PANCREAS: The visualized portions are within normal limits. RIGHT KIDNEY: Calyces appearing mildly dilated. LEFT KIDNEY: Calyces appear mildly dilated SPLEEN: No focal lesion. Small adjacent splenule AORTA: Non aneurysmal. IVC: Within normal limits. CONCLUSION: Distended gallbladder with wall thickening and internal debris. Mild calyceal dilatation involving the kidneys bilaterally Christopher Leonardo MD on June 22, 2017 at 17:18 Board Certified Radiologist. This report was verified electronically.
[2017-06-22] MEDS: DOCUSATE SODIUM 50 MG/SENNA 8.6 MG TAB PO SCH ×2 (21:00)
[2017-06-22] MEDS ORDERED: SODIUM CHLORIDE 0.9% FLUSH 5 ML FLUSH IV FLUSH SCH ×2 (21:00)
[2017-06-22] MEDS: CHLORHEXIDINE 0.12% (ORAL KIT) 15 ML CUP MT SCH ×2 (21:40)
[2017-06-22] MEDS: SODIUM CHLORIDE 0.9% FLUSH 10 ML FLUSH IV FLUSH SCH ×2 (21:41)
[2017-06-22] MEDS: FAMOTIDINE 20 MG/2 ML VIAL IV PUSH SCH ×2 (21:41)
[2017-06-22 23:25] LABS: TROPONIN I 1.92 NG/ML (0.02-0.05)
[2017-06-23] VITALS (30 sets, daily range): BP systolic 106–132; BP diastolic 78–91; PULSE 88–101; RESP 16–18; TEMP 98.2–100.6; O2SAT 98–100
[2017-06-23] MEDS: SODIUM CHLOR 0.9% 1000 ML INJ 1,000 ML IV SCH ×2 (03:06)
[2017-06-23] MEDS: RESP: ALBUTEROL 2.5 MG/IPRATROPIUM 0.5 MG NEB (SCH) INH ×8 (03:06→20:42)
[2017-06-23] MEDS: HEPARIN SODIUM - SQ 10,000 UNITS/ML VIAL SQ SCH ×4 (03:07→16:51)
[2017-06-23] MEDS: CHLORHEXIDINE GLUCONATE 2 % 1 PACK (2 CLOTHS) TOP SCH ×2 (03:07)
[2017-06-23 04:30] LABS: INTERNATIONAL NORMALIZED RATIO 1.4 RATIO; PROTHROMBIN TIME - PATIENT 15.5 SEC (9.8-11.6)
[2017-06-23 04:40] LABS: ALBUMIN 2.5 GM/DL (3.4-5.0); ALKALINE PHOSPHATASE LESS THAN 10 U/L (45-117); BICARBONATE 17.7 MEQ/L (21.0-32.0); CALCIUM 7.1 MG/DL (8.5-10.1); CHLORIDE 115 MEQ/L (98-107); CHOLESTEROL 95 MG/DL (120-200); CHOLESTEROL/ HDL RATIO 2.47 RATIO; CREATININE 2.97 MG/DL (0.50-1.00); GLOMERULAR FILTRATION RATE 16 ML/MIN (>89); GLUCOSE,RANDOM 146 MG/DL (74-106); HDL CHOLESTEROL 38.4 MG/DL (40.0-60.0); LDL CHOLESTEROL 36 MG/DL (0-99); LIPASE 295 U/L (73-393); MAGNESIUM 2.5 MG/DL (1.5-2.5); PHOSPHORUS 4.4 MG/DL (2.5-4.9); SODIUM (NA) 144 MEQ/L (136-145); TOTAL BILIRUBIN ADULT 0.6 MG/DL (0.2-1.0); TOTAL PROTEIN 6.8 GM/DL (6.4-8.2); TRIGLYCERIDES 103 MG/DL (42-150)
[2017-06-23 04:41] LABS: BLOOD UREA NITROGEN 69 MG/DL (7-18)
[2017-06-23 04:42] LABS: AMYLASE 171 U/L (25-115)
[2017-06-23 04:43] LABS: CALCIUM-PROTEIN CORRECTED 7.3 MG/DL (8.5-10.1)
[2017-06-23 04:44] LABS: TROPONIN I 1.08 NG/ML (0.02-0.05)
[2017-06-23 05:17] LABS: AUTOMATED NEUTROPHIL # 8.2 TH/MM3 (1.8-7.7); BASOPHIL % 0.1 % (0.0-2.0); HEMATOCRIT 45.7 % (35.0-46.0); HEMOGLOBIN 14.5 GM/DL (11.6-15.3); LYMPH % 5.3 % (9.0-44.0); LYMPHOCYTE # 0.5 TH/MM3 (1.0-4.8); MEAN CELL VOLUME 95.9 FL (80.0-100.0); MEAN CORPUSCULAR HEMOGLOBIN 30.3 PG (27.0-34.0); MEAN CORPUSCULAR HGB CONC 31.6 % (32.0-36.0); MEAN PLATELET VOLUME 8.9 FL (7.0-11.0); MONO % 3.5 % (0.0-8.0); MONOCYTE # 0.3 TH/MM3 (0-0.9); NEUT % 91.1 % (16.0-70.0); PLATELET COUNT 102 TH/MM3 (150-450); RED BLOOD COUNT 4.76 MIL/MM3 (4.00-5.30); RED CELL DISTRIBUTION WIDTH 13.5 % (11.6-17.2)
[2017-06-23] MEDS: PIPERACIL-TAZO 2.25 GM PREMIX 50 ML IV SCH ×8 (05:32→22:42)
[2017-06-23 05:43] LABS: ALT (GPT) 4642 U/L (10-53); AST (GOT) 4416 U/L (15-37)
[2017-06-23] MEDS ORDERED: CALCIUM GLUCONATE INJ 2 GM in SODIUM CHLORIDE 0.9% INJ 100 ML IV ONE ×4 (06:00)
[2017-06-23] MEDS: INSULIN ASPART SUPPLEMENTAL SCALE SQ SCH ×8 (06:34→23:56)
--- NOTE | 2017-06-23 07:19 | HHI.CCPN ---
Subjective Remarks/Hospital Course This is a 62-year-old female. Date of admission 06/22/2017. Past medical history includes COPD, depression and ongoing tobaccoism. She chronically uses alprazolam. 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 She presents to [facility] with a history of since Tuesday he's been unable to get her out of the chair. EMS said the patient had urinated on herself. She was poorly responsive and had 1 mm pinpoint pupils. They administered 0.4 of Narcan at which point she moved all of her extremities but didn't vocalize anything intelligible. She was emergently intubated using succinylcholine and etomidate. Included CT the brain which revealed 2.5 cm left insular cortex CVA, patient was noted be in acute kidney injury with a creatinine of 3.8. Lactic acid 2.7. Elevated transaminases/pneumonia and elevated troponin of 2.2. EKG showed normal sinus rhythm with nonspecific ST-T changes. UA revealed cystitis. Urine toxicology screen positive for benzodiazepine and THC. Subjective 06/23: Eyes open to voice/stimulation this AM. Withdrawals left upper, lower along with right lower extremity. No withdrawal right upper extremity. Pupils are reactive. Positive gag. Afebrile. Hemodynamically stable. MRI today after clearance from radiology. Troponin downtrending Objective Vital Signs Date Time Temp Pulse Resp B/P (MAP) Pulse Ox O2 Delivery O2 Flow Rate FiO2 06/23/17 06:00 99 18 116/79 (91) 100 06/23/17 04:00 40 06/23/17 04:00 99.8 06/22/17 20:39 Ventilator Intake and Output 06/23/17 06/23/17 06/23/17 07:59 15:59 23:59 Intake Total 762 ml Output Total 600 ml Balance 162 ml Result Diagram: 06/23/17 0502 06/23/17 0356 Other Results Microbiology Date/Time Source Procedure Growth Status 06/22/17 12:20 Blood Peripheral Aerobic Blood Culture Pending Received 06/22/17 12:20 Blood Peripheral Anaerobic Blood Culture Pending Received 06/22/17 13:30 Urine Catheterized Urine Urine Culture Pending Received Imaging Last Impressions Head CT 06/22/17 1225 Signed Impressions: Service Date/Time: Tuesday, June 22, 2017 14:22 - CONCLUSION: 1. Acute ischemic infarct involving the left insular cortex Jose Richard MD Chest X-Ray 06/22/17 1225 Signed Impressions: Service Date/Time: Thursday, June 22, 2017 13:10 - CONCLUSION: Support apparatus in good position. Rudy Meng MD FACR Carotid Artery Ultrasound 06/22/17 0000 Signed Impressions: Service Date/Time: Thursday, June 22, 2017 15:56 - CONCLUSION: No evidence of flow-limiting carotid stenosis. Christopher Leonardo MD Abdomen Ultrasound 06/22/17 0000 Signed Impressions: Service Date/Time: Thursday, June 22, 2017 16:30 - CONCLUSION: Distended gallbladder with wall thickening and internal debris. Mild calyceal dilatation involving the kidneys bilaterally Christopher Leonardo MD Objective Remarks GENERAL: 62-year-old female, critically ill currently orotracheally intubated SKIN: Warm and dry. No rash. HEAD: Atraumatic. Normocephalic. EYES: Pupils equal and round about 1 mm bilaterally and sluggish. No scleral icterus. No injection or drainage. ENT: No nasal bleeding or discharge. Mucous membranes pink and moist. NECK: Trachea midline. No JVD. CARDIOVASCULAR: Regular rate and rhythm. S1, S2. No cervical without murmur RESPIRATORY: No accessory muscle use. Clear to auscultation. Breath sounds equal bilaterally. GASTROINTESTINAL: Abdomen soft, non-tender, nondistended. No bowel sounds are appreciated MUSCULOSKELETAL: Extremities 1+ pitting lower extremity edema. No obvious deformities. NEUROLOGICAL: Positive corneal reflex Positive gag. Withdraws to pain in left upper, left lower and right lower extremity. Not in right upper extremity Upper toes. Urinary Catheter: Yes Assessment to: Continue Persaud insert reason: Prolonged Immobilization Vascular Central Line Catheter: No Assessment to: Continue A/P Assessment and Plan Neuro/Psych: Left insular cortex CVA 2.5 cm Chronic benzodiazepine use THC use CT head 06/22 revealed 2.5 cm left insular cortex CVA MRI brain/MRA brain pending Carotid Dopplers negative 2-D echocardiogram ordered. Hemaglobin A1c/lipids ordered. Goal keep systolic blood pressure less than 220, diastolic was less than 120. Initiated on baby aspirin. Holding Hmg Co reductase secondary to elevated transaminases. CV: Hypertension Lactic acidosis Elevated troponin EKG revealed normal sinus rhythm 98. Nonspecific ST-T changes. Cycle troponins. Downward trending 2-D echocardiogram ordered. Baby aspirin 81 milligrams daily Currently on sterile water with 2 ampules of bicarbonate 110 cc an hour Resp: Acute hypoxemic respiratory failure PRVC 16/500/1/5/50 Ventilator bundle Bronchodilator therapy every 6 hours with albuterol nebs every 2 hours. Dyspnea Spontaneous breathing trials daily GI: Elevated transaminases Elevated ammonia Hypoalbuminemia Place NG tube to LIWS Famotidine for GI prophylaxis Docusate sodium/senna one tablet twice a day for bowel regimen Hepatic ultrasound revealed distended gallbladder with internal debris. Initiated TF today with Nepro goal 40 cc with free water 100 cc every 8 hours : History of incontinence Persaud catheter placed for accurate I's and O's in a critically ill patient Endo: Hyperglycemia Low TSH Sliding-scale insulin with Accu-Cheks to maintain euglycemia/every 6 hours Renal: Acute kidney injury Possible secondary to dehydrationrhabdo. Urine electrolytes/eosinophils negative Renal ultrasound revealed dilated bilateral calyces. Monitor urine output Accurate I's and O's Heme: Thrombocytopenia Monitor CBC daily. Follow trends ID: Cystitis Piperacillin/tazobactam day 2. Check UA culture FEN: Hypocalcemia Replace electrolytes as clinically indicated. Calcium replace MSK: PT/OT evaluate and treat Access - Utilize peripheral IV. Central line if indicated Prophylaxis - GI - famotidine - DVT - SCD/heparin subcutaneous Critical Care: The total critical care time was 35 minutes. Time to perform other separately billable procedures was not included in the critical care time. Lewis Koenig MD Jun 23, 2017 07:19
[2017-06-23] MEDS ORDERED: SODIUM CHLOR 0.9% 1000 ML INJ 1,000 ML IV ONE ×2 (08:00)
[2017-06-23] MEDS: SODIUM BICARBONATE 8.4% INJ 100 MEQ in WATER STERILE FOR INJ 850 ML IV SCH ×8 (08:49→18:11)
[2017-06-23] MEDS: ASPIRIN 81 MG CHEW TAB PO SCH ×2 (08:53)
[2017-06-23] MEDS: SODIUM CHLORIDE 0.9% FLUSH 10 ML FLUSH IV FLUSH SCH ×4 (08:55→21:40)
[2017-06-23] MEDS: LACTULOSE SYRUP 20 GM/30 ML CUP PO SCH ×8 (08:55→21:40)
[2017-06-23] MEDS: FAMOTIDINE 20 MG/2 ML VIAL IV PUSH SCH ×4 (08:55→21:40)
[2017-06-23] MEDS: DOCUSATE SODIUM 50 MG/SENNA 8.6 MG TAB PO SCH ×4 (08:55→21:40)
[2017-06-23] MEDS: ARTIFICIAL TEARS OPTH SOLN 15 ML BTL EACH EYE SCH ×6 (08:56→18:00)
[2017-06-23] MEDS: CHLORHEXIDINE 0.12% (ORAL KIT) 15 ML CUP MT SCH ×4 (08:56→19:33)
--- NOTE | 2017-06-23 10:06 | MB ---
cc: XAVIER ARMENTA M.D. DATE OF CONSULTATION 06/23/2017 REASON FOR CONSULTATION Stroke HISTORY OF PRESENT ILLNESS Ms. Perez is a 62 year-old female who since Tuesday has had alteration in mental status with generalized weakness, difficulty getting out of a chair. She was seen by EMS, minimally responsive with pinpoint pupils. She was given Narcan, began to move all of her extremities, but was not vocalizing. She had a CT scan done which showed left insular cortex stroke with no hemorrhage. Also was found to have an elevated creatinine of 3.8, lactic acid 2.7. She was found to have a pneumonia and has been intubated. PAST MEDICAL HISTORY 1. Depression 2. Benzodiazepine use chronically 3. COPD ALLERGIES None known. MEDICATIONS Medications at home are: 1. Oxybutynin 2. Alprazolam as needed. NEUROLOGIC EXAMINATION The patient is intubated and sedated. VITAL SIGNS: Blood pressure is 116/79, pulse is 99, temperature 99.8 degrees. Higher cortical function, she is nonresponsive, but sedated. Pupils are 1 mm symmetric and reactive. The extraocular movements are intact to doll's eyes maneuver. On motor exam, she has no spontaneous limb movement. No withdrawal to pain. Reflexes are 1+ symmetric. CT of the brain, there is an acute stroke in the left insular cortex, no hemorrhage. Carotid ultrasound, no evidence of any significant stenotic lesion. LABORATORY DATA White count 9000, hemoglobin 14.5, hematocrit 45.7%, platelet count 102,000, PT 15.5, INR 1.4, APTT 25.5. Sodium is 144, potassium 4.4, chloride 158, CO2 17.7, BUN is 69, creatinine 2.97, GFR 16, glucose 146, calcium 7.1, protein corrected calcium 7.3, AST 4416, ALT 4642, CPK 876, troponin 1.08, triglyceride 103, cholesterol 95, LDL 36, HDL 38. Tox screen positive for benzodiazepines and cannabis. UA pH is 6, specific gravity 1.015. IMPRESSION The patient has evidence on CT scan of an acute stroke in the left hemisphere involving the insular cortex. Carotid ultrasound is negative. RECOMMENDATIONS We will obtain an echocardiogram. The patient is on aspirin. Would continue aspirin for now. Monitor cardiac telemetry, rule out atrial fibrillation. When stable, we will obtain an MRI and MRA of the brain for further evaluation. MD MAREK Rios/BRUNO /9:20 AM /9:52 AM
[2017-06-23 10:27] LABS: HEPATITIS A AB IGM NEGATIVE (NEGATIVE); HEPATITIS B SURFACE ANTIGEN NEGATIVE (NEGATIVE); HEPATITIS C AB IgG REACTIVE (NEGATIVE)
[2017-06-23] MEDS: PROPOFOL 1000 MG/100 ML INJ 100 ML IV PRN ×2 (11:33)
--- NOTE | 2017-06-23 16:13 | ECHRPT ---
Indication: HYPERTENSIVE HEART DISEASE CONCLUSIONS The left ventricular systolic function is moderately reduced with an estimated ejection fraction in the range of 40-45%. Normal left ventricular size. Wall thickness is normal. No regional wall motion abnormalities are present. The right ventricle is severely dilated. The right atrial size is severely dilated. Aortic valve sclerosis is present. Trace aortic valve regurgitation. There is trace tricuspid valve regurgitation. Pulmonary arterial systolic pressure could not be estimated due to an insufficient tricuspid valve regurgitation doppler jet for measurement. Dilated inferior vena cava with poor inspiration collapse consistent with elevated right atrial pres sure. BP: 121 / 80 HR: 94 Rhythm: Sinus MEASUREMENTS (Male / Female) Normal Values Technical Quality:Fair 2D ECHO LV Diastolic Diameter PLAX 3.3 cm 4.2 - 5.9 / 3.9 - 5.3 cm LV Systolic Diameter PLAX 2.7 cm IVS Diastolic Thickness 0.9 cm 0.6 - 1.0 / 0.6 - 0.9 cm LVPW Diastolic Thickness 1.0 cm 0.6 - 1.0 / 0.6 - 0.9 cm LV Relative Wall Thickness 0.6 RV Internal Dim ED PLAX 3.2 cm LVOT Diameter 1.9 cm LA Systolic Diameter LX 2.1 cm 3.0 - 4.0 / 2.7 - 3.8 cm LV Ejection Fraction MOD 4C 44.4 % LV Cardiac Index MOD 4C 1194.7 cm/minm LV Ejection Fraction 4C AL 49.1 % LV Cardiac Index 4C AL 1367.4 cm/minm M-MODE Aortic Root Diameter MM 3.1 cm AV Cusp Separation MM 1.7 cm DOPPLER AV Peak Velocity 100.0 cm/s AV Peak Gradient 4.0 mmHg LVOT Peak Velocity 83.4 cm/s LVOT Peak Gradient 2.8 mmHg AV Area Cont Eq pk 2.4 cm TV Peak Velocity 172.0 cm/s PV Peak Velocity 73.3 cm/s PV Peak Gradient 2.1 mmHg FINDINGS LEFT VENTRICLE The left ventricular systolic function is moderately reduced with an estimated ejection fraction in the range of 40-45%. Normal left ventricular size. Wall thickness is normal. No regional wall motion abnormalities are present. RIGHT VENTRICLE The right ventricle is severely dilated. LEFT ATRIUM The left atrial size is normal. RIGHT ATRIUM The right atrial size is severely dilated. ATRIAL SEPTUM Normal atrial septal thickness without atrial level shunting by limited color doppler interrogation. AORTA The aortic root and proximal ascending aorta are normal in size on limited imaging. MITRAL VALVE Structurally normal mitral valve. No mitral valve stenosis or regurgitation. AORTIC VALVE Aortic valve sclerosis is present. Trace aortic valve regurgitation. TRICUSPID VALVE There is trace tricuspid valve regurgitation. Pulmonary arterial systolic pressure could not be estimated due to an insufficient tricuspid valve regurgitation doppler jet for measurement. PULMONARY VALVE The pulmonary valve is not well visualized. VESSELS Dilated inferior vena cava with poor inspiration collapse consistent with elevated right atrial pres sure. PERICARDIUM No pericardial effusion. Raymundo Torres MD, FACC (Electronically Signed) Final Date:23 June 2017 16:12
[2017-06-23 16:26] LABS: HEMOGLOBIN A1C 6.5 % (4.3-6.0)
--- NOTE | 2017-06-23 17:41 | EKG ---
Date Performed: 06/22/2017 Time Performed: 13:57:23 PTAGE: 62 years EKG: Sinus rhythm LOW QRS VOLTAGE IN EXTREMITY LEADS LEFT POSTERIOR FASCICULAR BLOCK SEPTAL MYOCARDIAL INFARCTION POSS IBLE INFERIOR MYOCARDIAL INFARCTION MODERATE T-WAVE ABNORMALITY, CONSIDER ANTERIOR ISCHEMIA ABNORMAL ECG NO PREVIOUS TRACING DOCTOR: Luis A Cano Interpretating Date/Time 06/23/2017 17:36:40
[2017-06-24] VITALS (24 sets, daily range): BP systolic 129–157; BP diastolic 82–106; PULSE 83–93; RESP 12–19; TEMP 98.7–101; O2SAT 99–100
[2017-06-24] MEDS: SODIUM BICARBONATE 8.4% INJ 100 MEQ in WATER STERILE FOR INJ 850 ML IV SCH ×4 (02:48)
[2017-06-24] MEDS: CHLORHEXIDINE GLUCONATE 2 % 1 PACK (2 CLOTHS) TOP SCH ×2 (02:49)
[2017-06-24] MEDS: HEPARIN SODIUM - SQ 10,000 UNITS/ML VIAL SQ SCH ×4 (03:11→14:40)
[2017-06-24] MEDS: RESP: ALBUTEROL 2.5 MG/IPRATROPIUM 0.5 MG NEB (SCH) INH ×8 (03:33→20:09)
[2017-06-24 04:23] LABS: AUTOMATED NEUTROPHIL # 7.6 TH/MM3 (1.8-7.7); BASOPHIL % 0.2 % (0.0-2.0); EOSINOPHIL % 0.1 % (0.0-4.0); HEMATOCRIT 41.3 % (35.0-46.0); HEMOGLOBIN 13.8 GM/DL (11.6-15.3); LYMPH % 7.6 % (9.0-44.0); LYMPHOCYTE # 0.7 TH/MM3 (1.0-4.8); MEAN CELL VOLUME 93.3 FL (80.0-100.0); MEAN CORPUSCULAR HEMOGLOBIN 31.2 PG (27.0-34.0); MEAN CORPUSCULAR HGB CONC 33.5 % (32.0-36.0); MONO % 6.7 % (0.0-8.0); MONOCYTE # 0.6 TH/MM3 (0-0.9); NEUT % 85.4 % (16.0-70.0); PLATELET COUNT 89 TH/MM3 (150-450); RED BLOOD COUNT 4.42 MIL/MM3 (4.00-5.30); RED CELL DISTRIBUTION WIDTH 13.5 % (11.6-17.2); WHITE BLOOD COUNT 8.9 TH/MM3 (4.0-11.0)
[2017-06-24] MEDS: PIPERACIL-TAZO 2.25 GM PREMIX 50 ML IV SCH ×8 (05:13→22:46)
[2017-06-24 05:20] LABS: ALBUMIN 2.6 GM/DL (3.4-5.0); ALKALINE PHOSPHATASE 90 U/L (45-117); ALT (GPT) 3753 U/L (10-53); AST (GOT) 1849 U/L (15-37); BICARBONATE 27.1 MEQ/L (21.0-32.0); BLOOD UREA NITROGEN 56 MG/DL (7-18); CALCIUM 7.9 MG/DL (8.5-10.1); CHLORIDE 109 MEQ/L (98-107); CREATININE 2.32 MG/DL (0.50-1.00); FREE T4 1.17 NG/DL (0.76-1.46); GLOMERULAR FILTRATION RATE 21 ML/MIN (>89); GLUCOSE,RANDOM 143 MG/DL (74-106); MAGNESIUM 2.7 MG/DL (1.5-2.5); PHOSPHORUS 2.2 MG/DL (2.5-4.9); SODIUM (NA) 145 MEQ/L (136-145); TOTAL BILIRUBIN ADULT 0.6 MG/DL (0.2-1.0); TOTAL PROTEIN 6.4 GM/DL (6.4-8.2)
[2017-06-24] MEDS: INSULIN ASPART SUPPLEMENTAL SCALE SQ SCH ×8 (05:38→23:59)
[2017-06-24] MEDS ORDERED: POTASSIUM CHLORIDE 20 MEQ PWD PACKET PO ONE ×2 (06:45)
[2017-06-24] MEDS ORDERED: SODIUM PHOSPHATE INJ 15 MMOL in SODIUM CHLORIDE 0.9% INJ 150 ML IV ONE ×4 (08:00)
[2017-06-24] MEDS: LACTULOSE SYRUP 20 GM/30 ML CUP PO SCH ×8 (08:28→21:36)
[2017-06-24] MEDS: ARTIFICIAL TEARS OPTH SOLN 15 ML BTL EACH EYE SCH ×6 (08:28→17:36)
[2017-06-24] MEDS: FAMOTIDINE 20 MG/2 ML VIAL IV PUSH SCH ×4 (08:28→21:36)
[2017-06-24] MEDS: DOCUSATE SODIUM 50 MG/SENNA 8.6 MG TAB PO SCH ×4 (08:28→21:36)
[2017-06-24] MEDS: SODIUM CHLORIDE 0.9% FLUSH 10 ML FLUSH IV FLUSH SCH ×4 (08:29→21:36)
[2017-06-24] MEDS: ASPIRIN 81 MG CHEW TAB PO SCH ×2 (08:29)
[2017-06-24] MEDS: CHLORHEXIDINE 0.12% (ORAL KIT) 15 ML CUP MT SCH ×4 (08:49→21:36)
--- NOTE | 2017-06-24 09:06 | HHI.CCPN ---
Subjective Remarks/Hospital Course This is a 62-year-old female. Date of admission 06/22/2017. Past medical history includes COPD, depression and ongoing tobaccoism. She chronically uses alprazolam. 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 She presents to [facility] with a history of since Tuesday he's been unable to get her out of the chair. EMS said the patient had urinated on herself. She was poorly responsive and had 1 mm pinpoint pupils. They administered 0.4 of Narcan at which point she moved all of her extremities but didn't vocalize anything intelligible. She was emergently intubated using succinylcholine and etomidate. Included CT the brain which revealed 2.5 cm left insular cortex CVA, patient was noted be in acute kidney injury with a creatinine of 3.8. Lactic acid 2.7. Elevated transaminases/pneumonia and elevated troponin of 2.2. EKG showed normal sinus rhythm with nonspecific ST-T changes. UA revealed cystitis. Urine toxicology screen positive for benzodiazepine and THC. 06/23: Eyes open to voice/stimulation this AM. Withdrawals left upper, lower along with right lower extremity. No withdrawal right upper extremity. Pupils are reactive. Positive gag. Afebrile. Hemodynamically stable. MRI today after clearance from radiology. Troponin downtrending Subjective 06/24: Tmax 1.7. Currently 99.9. +2 L. opens eyes to voice. One bowel movement. Tolerating tube feeds. Sedation vacation today. Withdrawing to extremities. Objective Vital Signs Date Time Temp Pulse Resp B/P (MAP) Pulse Ox O2 Delivery O2 Flow Rate FiO2 06/24/17 07:40 100 35 06/24/17 06:00 99.9 88 16 135/92 (106) 06/22/17 20:39 Ventilator Intake and Output 06/24/17 06/24/17 06/25/17 08:00 16:00 00:00 Intake Total 1559 ml Output Total 1100 ml Balance 459 ml Result Diagram: 06/24/17 0405 06/24/17 0405 Imaging Last Impressions Head CT 06/22/17 1225 Signed Impressions: Service Date/Time: Thursday, June 22, 2017 14:22 - CONCLUSION: 1. Acute ischemic infarct involving the left insular cortex Jose Richard MD Chest X-Ray 06/22/17 1225 Signed Impressions: Service Date/Time: Thursday, June 22, 2017 13:10 - CONCLUSION: Support apparatus in good position. Rudy Meng MD FACR Carotid Artery Ultrasound 06/22/17 0000 Signed Impressions: Service Date/Time: Thursday, June 22, 2017 15:56 - CONCLUSION: No evidence of flow-limiting carotid stenosis. Christopher Leonardo MD Abdomen Ultrasound 06/22/17 0000 Signed Impressions: Service Date/Time: Thursday, June 22, 2017 16:30 - CONCLUSION: Distended gallbladder with wall thickening and internal debris. Mild calyceal dilatation involving the kidneys bilaterally Christopher Leonardo MD Objective Remarks GENERAL: 62-year-old female, critically ill currently orotracheally intubated SKIN: Warm and dry. No rash. HEAD: Atraumatic. Normocephalic. EYES: Pupils equal and round about 1 mm bilaterally and sluggish. No scleral icterus. No injection or drainage. ENT: No nasal bleeding or discharge. Mucous membranes pink and moist. NECK: Trachea midline. No JVD. CARDIOVASCULAR: Regular rate and rhythm. S1, S2. No cervical without murmur RESPIRATORY: No accessory muscle use. Clear to auscultation. Breath sounds equal bilaterally. GASTROINTESTINAL: Abdomen soft, non-tender, nondistended. No bowel sounds are appreciated MUSCULOSKELETAL: Extremities 1+ pitting lower extremity edema. No obvious deformities. NEUROLOGICAL: Positive corneal reflex Positive gag. Opens eyes to voice. Withdraws to pain in left upper, left lower and right lower extremity. Not in right upper extremity Upper toes. Urinary Catheter: Yes Assessment to: Continue Persaud insert reason: Prolonged Immobilization Vascular Central Line Catheter: No Assessment to: Continue A/P Assessment and Plan Neuro/Psych: Left insular cortex CVA 2.5 cm Chronic benzodiazepine use THC use CT head 06/22 revealed 2.5 cm left insular cortex CVA MRI brain/MRA brain pending Carotid Dopplers negative 2-D echocardiogram ordered. Hemaglobin A1c 6.5/lipids revealed low HDL 38. Low-cholesterol 95. Goal keep systolic blood pressure less than 220, diastolic was less than 120. Initiated on baby aspirin. Milligrams daily Holding Hmg Co reductase secondary to elevated transaminases. CV: Hypertension Lactic acidosis Elevated troponin EKG revealed normal sinus rhythm 98. Nonspecific ST-T changes. Cycle troponins. Downward trending 2-D echocardiogram revealed EF 45%. RV, RA dilated. The pulmonary arterial pressures are elevated. Baby aspirin 81 milligrams daily Currently on free water flushes 200 cc every 6 hours. 1 L normal saline bolus 1 now. Discontinue bicarbonate drip. Resp: Acute hypoxemic respiratory failure PRVC 16/500/1/5/40 Ventilator bundle Bronchodilator therapy with albuterol/ipratropium aerosols every 6 hours with albuterol nebs every 2 hours. Dyspnea Spontaneous breathing trials daily GI: Elevated transaminases Elevated ammonia Hypoalbuminemia started on Nepro goal 40 cc an hour Famotidine for GI prophylaxis Docusate sodium/senna one tablet twice a day for bowel regimen On lactulose 30 cc 4 times a day. Ammonia elevated 76. : History of incontinence Persaud catheter placed for accurate I's and O's in a critically ill patient Endo: Hyperglycemia Low TSH. Normal T4 1.17 Sliding-scale insulin with Accu-Cheks to maintain euglycemia/every 6 hours Renal: Acute kidney injury Possible secondary to dehydration rhabdo. Urine electrolytes/eosinophils negative Renal ultrasound revealed dilated bilateral calyces. Monitor urine output Accurate I's and O's. Creatinine hour troponin currently 2.3 Heme: Thrombocytopenia Monitor CBC daily. Follow trends ID: Cystitis Piperacillin/tazobactam day 2. Check UA culture FEN: Hypocalcemia Potassium is low Hypophosphatemia Potassium phosphorus 30 mmol IV 1. Check urine. Discussed to bicarbonate drip Replace electrolytes as clinically indicated. Calcium replace MSK: PT/OT evaluate and treat Access - Utilize peripheral IV. Central line if indicated Prophylaxis - GI - famotidine - DVT - SCD/heparin subcutaneous Critical Care: The total critical care time was 35 minutes. Time to perform other separately billable procedures was not included in the critical care time. Ordered VQ scan with regards to elevated right-sided heart pressures. MRI/MRA brain ordered for today. Spontaneous breathing trials attempt extubation Discussed with 2 sisters at bedside. Care plan discussed and all questions answered. Lewis Koenig MD Jun 24, 2017 09:06
[2017-06-24] MEDS ORDERED: SODIUM CHLOR 0.9% 1000 ML INJ 1,000 ML IV ONE ×2 (09:15)
[2017-06-24] MEDS: FREE WATER G-TUBE SCH ×8 (11:05→23:57)
--- NOTE | 2017-06-24 13:04 | RADRPT ---
EXAM DATE/TIME: 06/24/2017 11:39 [facility] COMPARISON: CHEST SINGLE AP, June 22, 2017, 13:10. INDICATIONS : Respiratory failure. MEDICAL HISTORY : Chronic obstructive pulmonary disease. SURGICAL HISTORY : Hysterectomy. ENCOUNTER: Subsequent ACUITY: 2 days PAIN SCORE: Non-responsive. LOCATION: Bilateral upper chest FINDINGS: ET tube and nasogastric tube are in good position. The heart is enlarged. Mild bibasilar interstiti al changes are evident. There is no pleural effusion or other consolidation. CONCLUSION: Support the breast in good position. Increasing bibasilar parenchymal changes. Rudy Meng MD FACR on June 24, 2017 at 13:02 Board Certified Radiologist. This report was verified electronically.
[2017-06-24] MEDS: PROPOFOL 1000 MG/100 ML INJ 100 ML IV PRN ×2 (14:00)
--- NOTE | 2017-06-24 14:13 | RADRPT ---
EXAM DATE/TIME: 06/24/2017 12:21 [facility] COMPARISON: No previous studies available for comparison. INDICATIONS : Respiratory failure. DOSE: 8.5 mCi Tc99m MAA IV 0.44 mCi Tc99m DTPA aerosol MEDICAL HISTORY : None SURGICAL HISTORY : Hysterectomy. ENCOUNTER: Initial ACUITY: 3 days PAIN SCALE: Non-responsive LOCATION: Chest. TECHNIQUE: Following five minutes of tidal breathing of DTPA aerosol, planar images of the lungs were performed in eight projections. The patient was then injected with MAA, and eight-view perfusion scan was perf ormed. FINDINGS: There is a homogeneous pattern of aerosol delivery to the periphery of both lungs. No focal ventilat ory defects are seen. The perfusion lung scan demonstrates a homogenous pattern of uptake in both lungs. No segmental or s ubsegmental defects are seen. CONCLUSION: 1. Low probability of pulmonary embolism Jose Richard MD on June 24, 2017 at 13:57 Board Certified Radiologist. This report was verified electronically.
[2017-06-24] MEDS ORDERED: PILL SPLITTER OTHER PRN ×2 (15:00)
--- NOTE | 2017-06-24 15:51 | RADRPT ---
EXAM DATE/TIME: 06/24/2017 13:37 [facility] COMPARISON: No previous studies available for comparison. INDICATIONS : CVA. MEDICAL HISTORY : Chronic obstructive pulmonary disease. Depression SURGICAL HISTORY : Cholecystectomy. ENCOUNTER: Subsequent ACUITY: 3 day PAIN SCORE: Nonresponsive. LOCATION: cranial TECHNIQUE: Multiplanar, multisequence MRI of the brain was performed without contrast. FINDINGS: CEREBRUM: Moderate motion artifact is present. There is the large area of restricted diffusion in the anterior left sylvian region involving the first second and third sylvian branches. This doesn't extend as f ar back as the motor strip. This is not associated with hemorrhage. WHITE MATTER: No significant white matter changes are noted. POSTERIOR FOSSA: The cerebellum and brainstem are intact. The 4th ventricle is midline. The cerebellopontine angle is unremarkable. The cerebellar tonsils are normal in position. EXTRACRANIAL: The visualized portions of the orbits and paranasal sinuses are unremarkable. CONCLUSION: Findings consistent with acute infarct left sylvian region anteriorly without hemorrhage. Rudy Meng MD FACR on June 24, 2017 at 15:47 Board Certified Radiologist. This report was verified electronically.
--- NOTE | 2017-06-24 15:52 | RADRPT ---
EXAM DATE/TIME: 06/24/2017 13:37 [facility] COMPARISON: No previous studies available for comparison. INDICATIONS : CVA. MEDICAL HISTORY : Chronic obstructive pulmonary disease. Depression SURGICAL HISTORY : Cholecystectomy. ENCOUNTER: Subsequent ACUITY: 3 day PAIN SCORE: Nonresponsive. LOCATION: cranial Please note a normal MRA of the brain does not entirely exclude the possibility of a small aneurysm, nor the possibility of distal intracranial vessel disease. TECHNIQUE: 3D time of flight MRA was performed. Source images, multiplanar STS MIP, and 3D volume MIP reconstru ctions were reviewed. FINDINGS: There is excellent visualization of the major intracranial arteries out to the second-order branch ve ssels. There is no evidence for aneurysm, vessel truncation or stenosis, and no evidence for vascula r malformation. CONCLUSION: Negative for major branch vessels obstruction in spite of MRI findings. Rudy Meng MD FACR on June 24, 2017 at 15:50 Board Certified Radiologist. This report was verified electronically.
--- NOTE | 2017-06-24 17:04 | HHI.PR ---
Review/Management Diagnosis Left hemisphere cva. Plan continue asa, supportive care. Diagnosis/Plan: Subjective Subjective Comments No acute events reported Active Medications Current Medications Medications (Trade) Dose Ordered Sig/Rosanna Route Start Time Stop Time Status Last Admin (NS Flush) 2 ml UNSCH PRN IV FLUSH 06/22/17 15:15 (NS Flush) 2 ml BID IV FLUSH 06/22/17 21:00 06/24/17 08:29 (Pepcid Inj) 10 mg Q12HR IV PUSH 06/22/17 21:00 06/24/17 08:28 (Ativan Inj) 1 mg Q1H PRN IV 06/22/17 15:15 (Tears Naturale Opth Soln) 1 drop TID EACH EYE 06/22/17 18:00 06/24/17 14:39 (Zofran Inj) 4 mg Q6H PRN IV 06/22/17 15:15 (Duoneb Neb) 1 ampule Q6HR NEB INH 06/22/17 16:00 06/24/17 16:19 (Albuterol Neb) 2.5 mg Q2HR NEB PRN INH 06/22/17 15:15 (Heparin Inj) 5,000 units Q12H SQ 06/22/17 15:15 06/24/17 03:11 Miscellaneous Information 1 Q361D XX 06/22/17 15:15 06/22/17 15:15 (Chlorhexidine 2% Cloth) 3 pack Taper DAILY@04 TOP 06/23/17 04:00 06/19/18 03:59 06/24/17 02:49 (Chlorhexidine 2% Cloth) 3 pack UNSCH PRN TOP 06/22/17 15:15 (Indy-Colace) 1 tab BID PO 06/22/17 21:00 06/24/17 08:28 (Milk Of Magnesia Liq) 30 ml Q12H PRN PO 06/22/17 15:15 (Senokot) 17.2 mg Q12H PRN PO 06/22/17 15:15 (Dulcolax Supp) 10 mg DAILY PRN RECTAL 06/22/17 15:15 (Lactulose Liq) 30 ml DAILY PRN PO 06/22/17 15:15 (Peridex 0.12% Liq) 15 ml BID@08,20 MT 06/22/17 20:00 06/24/17 08:49 Fentanyl Citrate 250 ml @ 5 mls/hr TITRATE PRN IV 06/22/17 15:15 (Trandate Inj) 10 mg Q2H PRN IV 06/22/17 15:45 Nicardipine HCl 25 mg/Sodium Chloride 260 ml @ 52 mls/hr TITRATE PRN IV 06/22/17 16:00 (Aspirin Chew) 81 mg DAILY PO 06/23/17 09:00 06/23/17 08:53 (D50w (Vial) Inj) 50 ml UNSCH PRN IV PUSH 06/22/17 15:45 (Glucagon Inj) 1 mg UNSCH PRN OTHER 06/22/17 15:45 Piperacillin Sod/ Tazobactam Sod 50 ml @ 100 mls/hr Q6H IV 06/22/17 17:00 06/24/17 16:27 (Lactulose Liq) 30 ml QID PO 06/22/17 18:00 06/24/17 14:39 Propofol 100 ml @ 1.65 mls/hr TITRATE PRN IV 06/22/17 17:15 06/23/17 11:33 (NovoLOG SUPPLEMENTAL SCALE) 1 Q6HR SQ 06/23/17 12:00 06/23/17 12:00 (Free Water) VOLUME: 200 ML Q4HR G-TUBE 06/24/17 12:00 06/24/17 15:54 (Lopressor) 12.5 mg Q12HR PO 06/24/17 21:00 (Pill Splitter) 1 ea UNSCH PRN OTHER 06/24/17 15:00 Allergies Allergies Coded Allergies No Known Allergies (Verified06/22/17) Exam I&O / VS 06/24/17 06/24/17 06/25/17 15:00 23:00 07:00 Intake Total 516 ml 1205 ml Balance 516 ml 1205 ml Intake IV Total 516 ml 1205 ml Vital Signs Date Time Temp Pulse Resp B/P (MAP) Pulse Ox O2 Delivery O2 Flow Rate FiO2 06/24/17 16:19 100 35 06/24/17 16:00 101.0 85 18 148/93 (111) 100 06/24/17 16:00 35 06/24/17 15:00 87 06/24/17 13:00 18 157/106 (123) 100 06/24/17 12:30 100 100 06/24/17 12:00 35 06/24/17 12:00 99.7 89 18 134/94 (107) 100 06/24/17 11:00 99.7 93 17 140/90 (107) 100 06/24/17 10:00 100.2 89 18 129/85 (100) 100 06/24/17 09:00 87 16 130/82 (98) 100 06/24/17 08:00 35 06/24/17 08:00 91 18 140/91 (107) 100 06/24/17 07:40 100 35 06/24/17 07:00 98.7 83 18 140/91 (107) 100 06/24/17 07:00 83 06/24/17 06:00 99.9 88 16 135/92 (106) 99 06/24/17 05:00 100.2 90 18 147/96 (113) 100 06/24/17 04:10 100 35 06/24/17 04:00 35 06/24/17 04:00 100.2 87 18 139/95 (110) 100 06/24/17 03:00 100.0 86 16 137/94 (108) 100 06/24/17 02:00 100.0 92 12 142/98 (113) 99 06/24/17 01:15 100 35 06/24/17 01:00 100.2 88 18 133/91 (105) 100 06/24/17 00:00 100.8 91 17 135/91 (106) 100 06/24/17 00:00 35 06/23/17 23:00 100.6 90 17 125/86 (99) 99 06/23/17 23:00 90 06/23/17 23:00 100 35 06/23/17 22:00 99.9 90 16 128/91 (103) 98 06/23/17 21:00 100.4 93 18 124/85 (98) 100 06/23/17 20:42 100 35 06/23/17 20:00 100.6 93 18 131/87 (102) 100 06/23/17 20:00 35 06/23/17 19:00 101.7 97 18 124/84 (97) 100 06/23/17 18:00 101.7 97 18 128/83 (98) 100 Exam Comments intubated, minimal response PERRL, EOM intact MOTOR--no focal deficits. Objective Radiology Results MRI brain--left insular cortex cva with no hemorrhage Micro and Labs Laboratory Tests Test 06/24/17 04:05 White Blood Count 8.9 Red Blood Count 4.42 Hemoglobin 13.8 Hematocrit 41.3 Mean Corpuscular Volume 93.3 Mean Corpuscular Hemoglobin 31.2 Mean Corpuscular Hemoglobin Concent 33.5 Red Cell Distribution Width 13.5 Platelet Count 89 Mean Platelet Volume 10.0 Neutrophils (%) (Auto) 85.4 Lymphocytes (%) (Auto) 7.6 Monocytes (%) (Auto) 6.7 Eosinophils (%) (Auto) 0.1 Basophils (%) (Auto) 0.2 Neutrophils # (Auto) 7.6 Lymphocytes # (Auto) 0.7 Monocytes # (Auto) 0.6 Eosinophils # (Auto) 0.0 Basophils # (Auto) 0.0 CBC Comment AUTO DIFF Differential Comment AUTO DIFF CONFIRMED Blood Urea Nitrogen 56 Creatinine 2.32 Random Glucose 143 Total Protein 6.4 Albumin 2.6 Calcium Level 7.9 Phosphorus Level 2.2 Magnesium Level 2.7 Alkaline Phosphatase 90 Aspartate Amino Transf (AST/SGOT) 1849 Alanine Aminotransferase (ALT/SGPT) 3753 Total Bilirubin 0.6 Sodium Level 145 Potassium Level 3.4 Chloride Level 109 Carbon Dioxide Level 27.1 Anion Gap 9 Estimat Glomerular Filtration Rate 21 Ammonia 76 Free Thyroxine 1.17 Date/Time Source Procedure Growth Status 06/22/17 12:20 Blood Peripheral Aerobic Blood Culture - Preliminary NO GROWTH IN 2 DAYS Resulted 06/22/17 12:20 Blood Peripheral Anaerobic Blood Culture - Preliminary NO GROWTH IN 2 DAYS Resulted 06/22/17 13:30 Urine Catheterized Urine Urine Culture - Final 10-50,000 CFU/ML MIXED GRAM POSITIVE ... Complete Vadim Barr PhD MD Jun 24, 2017 17:04
--- NOTE | 2017-06-24 19:18 | MB ---
cc: OSVALDO PRETTY MD DATE OF CONSULTATION 06/24/17 REASON FOR CONSULTATION Cardiomyopathy. HISTORY OF PRESENT ILLNESS Ms. Vane Perez is a 62-year-old female who does have a history of COPD. She presented to [facility] unable to get out of a chair. She was apparently found in the chair, poorly responsive and brought in by EMS. Subsequently workup has revealed acute ischemic infarct involving the left insular cortex. The patient is currently intubated and unable to give any history. An echocardiogram showed an EF of 40% and cardiology was subsequently consulted. PAST MEDICAL HISTORY 1. Chronic obstructive pulmonary disease 2. Chronic back pain with chronic benzodiazepine use 3. Depression. ALLERGIES NO KNOWN DRUG ALLERGIES. CURRENT MEDICATIONS Per the record. MEDICATIONS Outpatient unknown SOCIAL HISTORY The patient does smoke at least a pack a day, per her sister. REVIEW OF SYSTEMS Unable. PHYSICAL EXAMINATION VITAL SIGNS: 100.2, 89, 129/85 GENERAL: She is a thin female who is in no apparent distress. She is intubated. LUNGS: A bit decreased but clear to auscultation. CARDIOVASCULAR: She has a normal S1 and S2. No rubs or gallops were appreciated. ABDOMEN: Soft. EXTREMITIES: Free from edema. CARDIOLOGY STUDIES Echocardiogram showed an EF of 40-45%. There is severe right-sided heart dilation. LABORATORY DATA Significant for initial LFTs with an AST of 4416, ALT 4446. Current creatinine is 2.32. ASSESSMENT AND PLAN 1. Cardiomyopathy - the patient had an acute CVA and essentially acute onset of respiratory failure, hepatic and renal insufficiency. At this point, she will be medically managed as she is not a revascularization candidate. I would not utilize any ISA inhibitor at this point given her renal insufficiency, although this may be considered in the future. Low-dose beta-blockade would be reasonable. Once the patient recovers, we may wish to consider further evaluation for ischemia versus other. 2. Respiratory failure: This is being managed by critical care medicine. 3. Renal and hepatic insufficiency Osvaldo Pretty M.D. [place]/ /2:27 PM /7:05 PM
[2017-06-24] MEDS: METOPROLOL TARTRATE 25 MG TAB PO SCH ×2 (21:36)
[2017-06-24] MEDS ORDERED: VANCOMYCIN 1,000 MG/NS 250 ML IV ONE ×4 (22:30)
[2017-06-24] MEDS ORDERED: Vancomycin Consult Pharmacy 1 EA OTHER SCH ×2 (22:30)
[2017-06-25] VITALS (18 sets, daily range): BP systolic 144–160; BP diastolic 95–101; PULSE 75–91; RESP 17–19; O2SAT 99–100
[2017-06-25 00:52] LABS: BILIRUBIN, URINE NEG (NEG); BLOOD, URINE MOD (NEG); GLUCOSE,URINE NEG (NEG); KETONE, URINE NEG (NEG); MUCUS URINE FEW /lpf (OCC); NITRITE,URINE NEG (NEG); PH, URINE 5.5 (5.0-8.5); SQUAMOUS EPITHELIAL CELL URINE <1 /hpf (0-5); URINE COLOR YELLOW (YELLW/STRAW); URINE LEUKOCYTE ESTERASE NEG (NEG)
[2017-06-25] MEDS: HEPARIN SODIUM - SQ 10,000 UNITS/ML VIAL SQ SCH ×4 (03:15→15:15)
[2017-06-25] MEDS: RESP: ALBUTEROL 2.5 MG/IPRATROPIUM 0.5 MG NEB (SCH) INH ×8 (03:25→20:38)
[2017-06-25] MEDS: FREE WATER G-TUBE SCH ×10 (04:00→21:50)
[2017-06-25] MEDS: CHLORHEXIDINE GLUCONATE 2 % 1 PACK (2 CLOTHS) TOP SCH ×2 (04:00)
[2017-06-25] MEDS: PIPERACIL-TAZO 2.25 GM PREMIX 50 ML IV SCH ×8 (05:00→21:51)
[2017-06-25] MEDS: INSULIN ASPART SUPPLEMENTAL SCALE SQ SCH ×6 (05:05→18:00)
[2017-06-25 05:56] LABS: AUTOMATED NEUTROPHIL # 8.8 TH/MM3 (1.8-7.7); BASOPHIL % 0.2 % (0.0-2.0); HEMATOCRIT 43.4 % (35.0-46.0); LYMPH % 6.3 % (9.0-44.0); LYMPHOCYTE # 0.6 TH/MM3 (1.0-4.8); MEAN CELL VOLUME 94.2 FL (80.0-100.0); MEAN CORPUSCULAR HEMOGLOBIN 30.4 PG (27.0-34.0); MEAN CORPUSCULAR HGB CONC 32.2 % (32.0-36.0); MEAN PLATELET VOLUME 10.2 FL (7.0-11.0); MONO % 7.3 % (0.0-8.0); MONOCYTE # 0.7 TH/MM3 (0-0.9); NEUT % 86.2 % (16.0-70.0); PLATELET COUNT 112 TH/MM3 (150-450); RED BLOOD COUNT 4.61 MIL/MM3 (4.00-5.30); RED CELL DISTRIBUTION WIDTH 13.8 % (11.6-17.2); WHITE BLOOD COUNT 10.2 TH/MM3 (4.0-11.0)
[2017-06-25 07:13] LABS: ALBUMIN 2.4 GM/DL (3.4-5.0); ALKALINE PHOSPHATASE 106 U/L (45-117); ALT (GPT) 2715 U/L (10-53); AMYLASE 94 U/L (25-115); AST (GOT) 624 U/L (15-37); BICARBONATE 31.5 MEQ/L (21.0-32.0); BLOOD UREA NITROGEN 40 MG/DL (7-18); CALCIUM 7.8 MG/DL (8.5-10.1); CHLORIDE 113 MEQ/L (98-107); CREATININE 1.74 MG/DL (0.50-1.00); GLOMERULAR FILTRATION RATE 30 ML/MIN (>89); GLUCOSE,RANDOM 144 MG/DL (74-106); LIPASE 337 U/L (73-393); MAGNESIUM 2.7 MG/DL (1.5-2.5); PHOSPHORUS 1.8 MG/DL (2.5-4.9); SODIUM (NA) 149 MEQ/L (136-145); TOTAL BILIRUBIN ADULT 0.8 MG/DL (0.2-1.0); TOTAL PROTEIN 6.5 GM/DL (6.4-8.2); TROPONIN I 0.21 NG/ML (0.02-0.05)
[2017-06-25] MEDS: CHLORHEXIDINE 0.12% (ORAL KIT) 15 ML CUP MT SCH ×4 (08:00→21:50)
[2017-06-25 08:47] LABS: BANDS 9 % (0-6); LYMPHOCYTES 5 % (9-44); MONOCYTES 6 % (0-8); NEUTROPHIL # MANUAL DIFF 9.1 TH/MM3 (1.8-7.7); POLYS (SEG NEUTROPHILS) 80 % (16-70)
[2017-06-25] MEDS: SODIUM CHLORIDE 0.9% FLUSH 10 ML FLUSH IV FLUSH SCH ×4 (09:00→21:50)
--- NOTE | 2017-06-25 09:30 | HHI.CCPN ---
Subjective Remarks/Hospital Course This is a 62-year-old female. Date of admission 06/22/2017. Past medical history includes COPD, depression and ongoing tobaccoism. She chronically uses alprazolam. 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 She presents to [facility] with a history of since Tuesday he's been unable to get her out of the chair. EMS said the patient had urinated on herself. She was poorly responsive and had 1 mm pinpoint pupils. They administered 0.4 of Narcan at which point she moved all of her extremities but didn't vocalize anything intelligible. She was emergently intubated using succinylcholine and etomidate. Included CT the brain which revealed 2.5 cm left insular cortex CVA, patient was noted be in acute kidney injury with a creatinine of 3.8. Lactic acid 2.7. Elevated transaminases/pneumonia and elevated troponin of 2.2. EKG showed normal sinus rhythm with nonspecific ST-T changes. UA revealed cystitis. Urine toxicology screen positive for benzodiazepine and THC. 06/23: Eyes open to voice/stimulation this AM. Withdrawals left upper, lower along with right lower extremity. No withdrawal right upper extremity. Pupils are reactive. Positive gag. Afebrile. Hemodynamically stable. MRI today after clearance from radiology. Troponin downtrending 06/24: Tmax 101.7. Currently 99.9. +2 L. opens eyes to voice. One bowel movement. Tolerating tube feeds. Sedation vacation today. Withdrawing to extremities. Subjective 06/25: Tmax 102. Opens eyes to voice. Withdraws to left upper lobe extremity and right lower extremity. Currently on minimal propofol 3 mg/kg per minute. No obvious peripheral upper or lower extremity edema. Possible infiltrate on chest x-ray. White Blood cell count normal. Objective Vital Signs Date Time Temp Pulse Resp B/P (MAP) Pulse Ox O2 Delivery O2 Flow Rate FiO2 06/25/17 08:28 100 35 06/25/17 06:00 83 06/25/17 04:00 102.0 18 144/95 (111) 06/22/17 20:39 Ventilator Intake and Output 06/25/17 06/25/17 06/26/17 08:00 16:00 00:00 Intake Total 890 ml Output Total 1000 ml Balance -110 ml Result Diagram: 06/25/17 0523 06/25/17 0523 Other Results Microbiology Date/Time Source Procedure Growth Status 06/25/17 01:40 Blood Peripheral Aerobic Blood Culture Pending Received 06/25/17 01:40 Blood Peripheral Anaerobic Blood Culture Pending Received 06/22/17 13:30 Urine Catheterized Urine Urine Culture - Final 10-50,000 CFU/ML MIXED GRAM POSITIVE ... Complete Imaging Last Impressions Lung Scan-VQ Nuclear Medicine 06/24/17 0000 Signed Impressions: Service Date/Time: Saturday, June 24, 2017 12:21 - CONCLUSION: 1. Low probability of pulmonary embolism Jose Richard MD Head Magnetic Resonance Angiography 06/24/17 0000 Signed Impressions: Service Date/Time: Saturday, June 24, 2017 13:37 - CONCLUSION: Negative for major branch vessels obstruction in spite of MRI findings. Rudy Meng MD FACR Chest X-Ray 06/24/17 0000 Signed Impressions: Service Date/Time: Saturday, June 24, 2017 11:39 - CONCLUSION: Support the breast in good position. Increasing bibasilar parenchymal changes. Rudy Meng MD FACR Brain MRI 06/24/17 0000 Signed Impressions: Service Date/Time: Saturday, June 24, 2017 13:37 - CONCLUSION: Findings consistent with acute infarct left sylvian region anteriorly without hemorrhage. Rudy Meng MD FACR Head CT 06/22/17 1225 Signed Impressions: Service Date/Time: Thursday, June 22, 2017 14:22 - CONCLUSION: 1. Acute ischemic infarct involving the left insular cortex Jose Richard MD Carotid Artery Ultrasound 06/22/17 0000 Signed Impressions: Service Date/Time: Thursday, June 22, 2017 15:56 - CONCLUSION: No evidence of flow-limiting carotid stenosis. Christopher Leonardo MD Abdomen Ultrasound 06/22/17 0000 Signed Impressions: Service Date/Time: Thursday, June 22, 2017 16:30 - CONCLUSION: Distended gallbladder with wall thickening and internal debris. Mild calyceal dilatation involving the kidneys bilaterally Christopher Leonardo MD Objective Remarks GENERAL: 62-year-old female, critically ill currently orotracheally intubated SKIN: Warm and dry. No rash. HEAD: Atraumatic. Normocephalic. EYES: Pupils equal and round about 1 mm bilaterally and sluggish. No scleral icterus. No injection or drainage. ENT: No nasal bleeding or discharge. Mucous membranes pink and moist. NECK: Trachea midline. No JVD. CARDIOVASCULAR: Regular rate and rhythm. S1, S2. No cervical without murmur RESPIRATORY: No accessory muscle use. Clear to auscultation. Breath sounds equal bilaterally. GASTROINTESTINAL: Abdomen soft, non-tender, nondistended. No bowel sounds are appreciated MUSCULOSKELETAL: Extremities 1+ pitting lower extremity edema. No obvious deformities. NEUROLOGICAL: Positive corneal reflex Positive gag. Opens eyes to voice. Withdraws to pain in left upper, left lower and right lower extremity. Not in right upper extremity Upper toes. A/P Assessment and Plan Neuro/Psych: Left insular cortex CVA 2.5 cm Chronic benzodiazepine use THC use CT head 06/22 revealed 2.5 cm left insular cortex CVA Carotid Dopplers negative 2-D echocardiogram revealed EF 40-45%. Right atrial and right ventricular dilatation. Hemaglobin A1c 6.5/lipids revealed low HDL 38. Low-cholesterol 95. Initiated on baby aspirin 81 mg daily MRI brain revealed left sylvian fissure CVA. MRA brain 06/24 negative Holding Hmg Co reductase secondary to elevated transaminases. CV: Hypertension Lactic acidosis Elevated troponin EKG revealed normal sinus rhythm 98. Nonspecific ST-T changes. Cycle troponins. Downward trending at 0.21 2-D echocardiogram revealed EF 45%. RV, RA dilated. The pulmonary arterial pressures are elevated. Cardiology consultation appreciated. Will need workup once neurological issues have resolved Baby aspirin 81 milligrams daily Currently on free water flushes 200 cc every 4 hours. Resp: Acute hypoxemic respiratory failure [facility] 16/500/10/28/39 Ventilator bundle Bronchodilator therapy with albuterol/ipratropium aerosols every 6 hours with albuterol nebs every 2 hours. Dyspnea Spontaneous breathing trials daily Chest x-ray revealed possible lower lobe infiltrate GI: Elevated transaminases Elevated ammonia Hypoalbuminemia Hepatitis C antibody positive Started on Nepro goal 40 cc an hour Famotidine 10 mg IV every 12 hours for GI prophylaxis Docusate sodium/senna one tablet twice a day for bowel regimen On lactulose 30 cc 4 times a day. Ammonia elevated 62. : History of incontinence Persaud catheter placed for accurate I's and O's in a critically ill patient Endo: Hyperglycemia Low TSH. Normal T4 1.17 Sliding-scale insulin with Accu-Cheks to maintain euglycemia/every 6 hours Renal: Acute kidney injury resolving Possible secondary to dehydration rhabdo. Urine electrolytes/eosinophils negative Renal ultrasound revealed dilated bilateral calyces. Monitor urine output Accurate I's and O's. Creatinine hour troponin currently 1.6 Heme: Thrombocytopenia Monitor CBC daily. Follow trends ID: Pyrexia Piperacillin/tazobactam day 3. Vancomycin day #2 Check UA culture Pertinent cultures 06/25 - blood cultures 2 - pending 06/22 - UA - gram positive mixed organisms. UA 06/25 negative 06/22 - blood cultures 2 - no growth Unable to give acetaminophen secondary to elevated transaminases did unable to give NSAIDs secondary to elevated creatinine FEN: Hypernatremia Hypophosphatemia Potassium phosphorus 30 mmol IV 1. Replace electrolytes as clinically indicated. On free water 200 cc every 4 hours MSK: PT/OT evaluate and treat Access - Utilize peripheral IV. Central line if indicated Prophylaxis - GI - famotidine - DVT - SCD/heparin subcutaneous Level II follow-up Lewis Koenig MD Jun 25, 2017 09:30
[2017-06-25] MEDS: DOCUSATE SODIUM 50 MG/SENNA 8.6 MG TAB PO SCH ×4 (09:53→21:51)
[2017-06-25] MEDS: ARTIFICIAL TEARS OPTH SOLN 15 ML BTL EACH EYE SCH ×6 (09:54→16:23)
[2017-06-25] MEDS: ASPIRIN 81 MG CHEW TAB PO SCH ×2 (09:54)
[2017-06-25] MEDS: LACTULOSE SYRUP 20 GM/30 ML CUP PO SCH ×8 (09:54→21:51)
[2017-06-25] MEDS: METOPROLOL TARTRATE 25 MG TAB PO SCH ×4 (09:54→21:51)
[2017-06-25] MEDS: FAMOTIDINE 20 MG/2 ML VIAL IV PUSH SCH ×4 (09:55→21:50)
[2017-06-25] MEDS ORDERED: POTASSIUM PHOSPHATE INJ 30 MMOL in SODIUM CHLOR 0.9% 250 ML INJ 250 ML IV ONE ×4 (11:00)
--- NOTE | 2017-06-25 20:08 | MG ---
cc: CORINNE DEWITT MD Lab No: [id number] Date: 06/25/17 Age: 62 Sex: F Race: REFERRING PHYSICIAN Dr. Koenig Intubated with photic stimulation, sedated at Diprivan at 3 mcg, unresponsive with deep tactile stimulation done. MRI consistent with an acute infarct left sylvian region anteriorly without a hemorrhage. This is a 62 year-old woman that was unable to get out of a chair, urinated on herself. Positive for benzodiazepines, on Zosyn, propofol, vancomycin. DESCRIPTION OF RECORD The patient exhibits overall background slowing predominately of 3 Hz, 1 Hz background. Some biting of the tube noted. There is artifact from DICTATION CUT OFF Corinne Dewitt MD DF/ /6:49 PM /8:01 PM
--- NOTE | 2017-06-25 20:14 | MG ---
cc: CORINNE DEWITT MD Lab No: [id number] Date: 06/25/17 Age: 62 Sex: F Race: DATE OF [address] Koenig Intubated and sedated with Diprivan. Unresponsive 62 year old woman that could not get our of a chair and urinated herself. MRI shows acute infarct left sylvian region without hemorrhage. Zosyn, Vancomycin, Propofol The patient's background shows predominantly between 1 to 3 Hz rhythm consistent with more of a delta slowing pattern. A lot of muscle artifact. EKG looks sinus. No epileptiform features. There is some movement artifact. Photic stimulation elicits a mild driving response. There is some withdrawal with deep tactile stimulation more on the left side. IMPRESSION Abnormal EEG due to moderate slowing consistent with either medicine effect or encephalopathic process. No evidence of seizure-like activity. Corinne Dewitt MD DF/ /6:51 PM /8:05 PM
[2017-06-26] VITALS (19 sets, daily range): BP systolic 132–161; BP diastolic 88–94; PULSE 66–88; RESP 15–21; TEMP 98.3–100.7; O2SAT 97–100
[2017-06-26] MEDS: VANCOMYCIN 1,000 MG/NS 250 ML IV SCH ×4 (01:45)
[2017-06-26] MEDS: FREE WATER G-TUBE SCH ×14 (01:45→23:41)
[2017-06-26] MEDS: RESP: ALBUTEROL 2.5 MG/IPRATROPIUM 0.5 MG NEB (SCH) INH ×6 (03:46→15:29)
[2017-06-26] MEDS: CHLORHEXIDINE GLUCONATE 2 % 1 PACK (2 CLOTHS) TOP SCH ×2 (04:00)
[2017-06-26] MEDS: PIPERACIL-TAZO 2.25 GM PREMIX 50 ML IV SCH ×8 (04:14→23:41)
[2017-06-26] MEDS: HEPARIN SODIUM - SQ 10,000 UNITS/ML VIAL SQ SCH ×4 (04:14→15:00)
[2017-06-26] MEDS: INSULIN ASPART SUPPLEMENTAL SCALE SQ SCH ×10 (06:00→23:41)
[2017-06-26] MEDS: SODIUM CHLORIDE 0.9% FLUSH 10 ML FLUSH IV FLUSH SCH ×4 (09:00→20:35)
[2017-06-26] MEDS: ARTIFICIAL TEARS OPTH SOLN 15 ML BTL EACH EYE SCH ×6 (09:00→17:47)
--- NOTE | 2017-06-26 09:03 | HHI.CCPN ---
Subjective Remarks/Hospital Course This is a 62-year-old female. Date of admission 06/22/2017. Past medical history includes COPD, depression and ongoing tobaccoism. She chronically uses alprazolam. 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 She presents to [facility] with a history of since Tuesday he's been unable to get her out of the chair. EMS said the patient had urinated on herself. She was poorly responsive and had 1 mm pinpoint pupils. They administered 0.4 of Narcan at which point she moved all of her extremities but didn't vocalize anything intelligible. She was emergently intubated using succinylcholine and etomidate. Included CT the brain which revealed 2.5 cm left insular cortex CVA, patient was noted be in acute kidney injury with a creatinine of 3.8. Lactic acid 2.7. Elevated transaminases/pneumonia and elevated troponin of 2.2. EKG showed normal sinus rhythm with nonspecific ST-T changes. UA revealed cystitis. Urine toxicology screen positive for benzodiazepine and THC. 06/23: Eyes open to voice/stimulation this AM. Withdrawals left upper, lower along with right lower extremity. No withdrawal right upper extremity. Pupils are reactive. Positive gag. Afebrile. Hemodynamically stable. MRI today after clearance from radiology. Troponin downtrending 06/24: Tmax 101.7. Currently 99.9. +2 L. opens eyes to voice. One bowel movement. Tolerating tube feeds. Sedation vacation today. Withdrawing to extremities. 06/25: Tmax 102. Opens eyes to voice. Withdraws to left upper lobe extremity and right lower extremity. Currently on minimal propofol 3 mg/kg per minute. No obvious peripheral upper or lower extremity edema. Possible infiltrate on chest x-ray. White Blood cell count normal. Subjective 06/26: Tmax 100.7. Currently 100. Opens eyes to voice. Withdrawals left upper , left lower and right lower extremity. Tolerating tube feeds at 40 cc an hour. Positive BM. Objective Vital Signs Date Time Temp Pulse Resp B/P (MAP) Pulse Ox O2 Delivery O2 Flow Rate FiO2 06/26/17 07:30 35 06/26/17 07:30 100 06/26/17 06:00 66 06/26/17 04:00 100.0 18 132/88 (103) 06/22/17 20:39 Ventilator Intake and Output 06/26/17 06/26/17 06/27/17 08:00 16:00 00:00 Intake Total 697 ml Output Total 1500 ml Balance -803 ml Result Diagram: 06/25/17 0523 06/25/17 0523 Other Results Microbiology Date/Time Source Procedure Growth Status 06/25/17 01:40 Blood Peripheral Aerobic Blood Culture Pending Received 06/25/17 01:40 Blood Peripheral Anaerobic Blood Culture Pending Received 06/25/17 10:00 Sputum Endotracheal Gram Stain - Final Resulted 06/25/17 10:00 Sputum Endotracheal Sputum Culture Pending Resulted 06/22/17 13:30 Urine Catheterized Urine Urine Culture - Final 10-50,000 CFU/ML MIXED GRAM POSITIVE ... Complete Imaging Last Impressions Lung Scan-VQ Nuclear Medicine 06/24/17 0000 Signed Impressions: Service Date/Time: Saturday, June 24, 2017 12:21 - CONCLUSION: 1. Low probability of pulmonary embolism Jose Richard MD Head Magnetic Resonance Angiography 06/24/17 0000 Signed Impressions: Service Date/Time: Saturday, June 24, 2017 13:37 - CONCLUSION: Negative for major branch vessels obstruction in spite of MRI findings. Rudy Meng MD FACR Chest X-Ray 06/24/17 0000 Signed Impressions: Service Date/Time: Saturday, June 24, 2017 11:39 - CONCLUSION: Support the breast in good position. Increasing bibasilar parenchymal changes. Rudy Meng MD FACR Brain MRI 06/24/17 0000 Signed Impressions: Service Date/Time: Saturday, June 24, 2017 13:37 - CONCLUSION: Findings consistent with acute infarct left sylvian region anteriorly without hemorrhage. Rudy Meng MD FACR Head CT 06/22/17 1225 Signed Impressions: Service Date/Time: Thursday, June 22, 2017 14:22 - CONCLUSION: 1. Acute ischemic infarct involving the left insular cortex Jose Richard MD Carotid Artery Ultrasound 06/22/17 0000 Signed Impressions: Service Date/Time: Thursday, June 22, 2017 15:56 - CONCLUSION: No evidence of flow-limiting carotid stenosis. Christopher Leonardo MD Abdomen Ultrasound 06/22/17 0000 Signed Impressions: Service Date/Time: Thursday, June 22, 2017 16:30 - CONCLUSION: Distended gallbladder with wall thickening and internal debris. Mild calyceal dilatation involving the kidneys bilaterally Christopher Leonardo MD Objective Remarks GENERAL: 62-year-old female, critically ill currently orotracheally intubated SKIN: Warm and dry. No rash. HEAD: Atraumatic. Normocephalic. EYES: Pupils equal and round about 1 mm bilaterally and sluggish. No scleral icterus. No injection or drainage. ENT: No nasal bleeding or discharge. Mucous membranes pink and moist. NECK: Trachea midline. No JVD. CARDIOVASCULAR: Regular rate and rhythm. S1, S2. No cervical without murmur RESPIRATORY: No accessory muscle use. Clear to auscultation. Breath sounds equal bilaterally. GASTROINTESTINAL: Abdomen soft, non-tender, nondistended. No bowel sounds are appreciated MUSCULOSKELETAL: Extremities 1+ pitting lower extremity edema. No obvious deformities. NEUROLOGICAL: Positive corneal reflex Positive gag. Opens eyes to voice. Withdraws to pain in left upper, left lower and right lower extremity. Not in right upper extremity Upper toes. Vascular Central Line Catheter: No Assessment to: Continue A/P Assessment and Plan Neuro/Psych: Left insular cortex CVA 2.5 cm Chronic benzodiazepine use THC use Currently on propofol drip at 13 mics grams per kilogram per minute for sedation while intubated Goal of RA SS -[address] head 06/22 revealed 2.5 cm left insular cortex CVA Carotid Dopplers negative 2-D echocardiogram revealed EF 40-45%. Right atrial and right ventricular dilatation. Hemaglobin A1c 6.5/lipids revealed low HDL 38. Low-cholesterol 95. Continue on baby aspirin 81 mg daily MRI brain 06/24 revealed left sylvian fissure CVA. MRA brain 06/24 negative for occlusive disease Holding Hmg Co reductase secondary to elevated transaminases. CV: Hypertension Lactic acidosis - resolving Elevated troponin EKG revealed normal sinus rhythm 98. Nonspecific ST-T changes. Cycle troponins. Downward trending at 0.21 2-D echocardiogram revealed EF 45%. RV, RA dilated. The pulmonary arterial pressures are elevated. Cardiology consultation appreciated. Will need workup once neurological issues have resolved Baby aspirin 81 milligrams daily Currently on free water flushes 200 cc every 4 hours. Resp: Acute hypoxemic respiratory failure [facility] 16/500/1/5/40 Ventilator bundle Bronchodilator therapy with albuterol/ipratropium aerosols every 6 hours with albuterol nebs every 2 hours. Dyspnea Spontaneous breathing trials daily Chest x-ray ordered for a.. 06/27 GI: Elevated transaminases Elevated ammonia Hypoalbuminemia Hepatitis C antibody positive Started on Nepro goal 40 cc an hour Famotidine 10 mg IV every 12 hours for GI prophylaxis Docusate sodium/senna one tablet twice a day for bowel regimen On lactulose 30 cc 4 times a day. Ammonia elevated 62. Hep C genotype/viral load pending HIDA scan ordered for a.m. 06/27 with distended gallbladder : History of incontinence Persaud catheter placed for accurate I's and O's in a critically ill patient Endo: Hyperglycemia Low TSH. Normal T4 1.17 Sliding-scale insulin with Accu-Cheks to maintain euglycemia/every 6 hours Renal: Acute kidney injury resolving Possible secondary to dehydration rhabdo. Urine electrolytes/eosinophils negative Renal ultrasound revealed dilated bilateral calyces. Possibly will need urology evaluation when stabilizes Monitor urine output Accurate I's and O's. Creatinine this a.m. currently pending Heme: Thrombocytopenia Monitor CBC daily. Follow trends ID: Pyrexia Piperacillin/tazobactam day 4. Vancomycin day #3 Check UA culture Pertinent cultures 06/25 - sputum - pending 06/25 - blood cultures 2 -no growth 06/22 - UA - gram positive mixed organisms. UA 06/25 negative 06/22 - blood cultures 2 - no growth Influenza negative Unable to give acetaminophen secondary to elevated transaminases did unable to give NSAIDs secondary to elevated creatinine FEN: Hypernatremia Hypophosphatemia Potassium phosphorus 30 mmol IV 1. Replace electrolytes as clinically indicated. On free water 200 cc every 4 hours A.m. laboratories 06/26 pending MSK: PT/OT evaluate and treat Access - Utilize peripheral IV. Central line if indicated Prophylaxis - GI - famotidine - DVT - SCD/heparin subcutaneous Level III follow-up Lewis Koenig MD Jun 26, 2017 09:03
[2017-06-26 09:32] LABS: AUTOMATED NEUTROPHIL # 8.5 TH/MM3 (1.8-7.7); BASOPHIL % 0.3 % (0.0-2.0); EOSINOPHIL % 0.4 % (0.0-4.0); HEMATOCRIT 41.5 % (35.0-46.0); HEMOGLOBIN 13.6 GM/DL (11.6-15.3); LYMPH % 9.4 % (9.0-44.0); MEAN CELL VOLUME 94.9 FL (80.0-100.0); MEAN CORPUSCULAR HEMOGLOBIN 31.1 PG (27.0-34.0); MEAN CORPUSCULAR HGB CONC 32.8 % (32.0-36.0); MEAN PLATELET VOLUME 10.5 FL (7.0-11.0); MONO % 8.6 % (0.0-8.0); MONOCYTE # 0.9 TH/MM3 (0-0.9); NEUT % 81.3 % (16.0-70.0); PLATELET COUNT 112 TH/MM3 (150-450); RED BLOOD COUNT 4.37 MIL/MM3 (4.00-5.30); RED CELL DISTRIBUTION WIDTH 13.5 % (11.6-17.2); WHITE BLOOD COUNT 10.5 TH/MM3 (4.0-11.0)
[2017-06-26 09:49] LABS: ALBUMIN 2.2 GM/DL (3.4-5.0); AST (GOT) 138 U/L (15-37); BICARBONATE 32.3 MEQ/L (21.0-32.0); BLOOD UREA NITROGEN 39 MG/DL (7-18); CALCIUM 8.2 MG/DL (8.5-10.1); CHLORIDE 111 MEQ/L (98-107); CREATININE 1.31 MG/DL (0.50-1.00); GLOMERULAR FILTRATION RATE 41 ML/MIN (>89); GLUCOSE,RANDOM 148 MG/DL (74-106); MAGNESIUM 2.6 MG/DL (1.5-2.5); PHOSPHORUS 2.8 MG/DL (2.5-4.9); SODIUM (NA) 148 MEQ/L (136-145)
[2017-06-26 09:57] LABS: ALKALINE PHOSPHATASE 102 U/L (45-117); ALT (GPT) 1506 U/L (10-53); TOTAL BILIRUBIN ADULT 0.6 MG/DL (0.2-1.0); TOTAL PROTEIN 6.3 GM/DL (6.4-8.2)
[2017-06-26] MEDS: PROPOFOL 1000 MG/100 ML INJ 100 ML IV PRN ×4 (10:12→17:46)
[2017-06-26] MEDS: LACTULOSE SYRUP 20 GM/30 ML CUP PO SCH ×8 (10:13→20:36)
[2017-06-26] MEDS: ASPIRIN 81 MG CHEW TAB PO SCH ×2 (10:13)
[2017-06-26] MEDS: METOPROLOL TARTRATE 25 MG TAB PO SCH ×4 (10:13→20:36)
[2017-06-26] MEDS: FAMOTIDINE 20 MG/2 ML VIAL IV PUSH SCH ×4 (10:14→20:36)
[2017-06-26] MEDS: DOCUSATE SODIUM 50 MG/SENNA 8.6 MG TAB PO SCH ×4 (10:14→20:36)
--- NOTE | 2017-06-26 12:13 | PD.CARD.PN ---
Subjective Subjective Remarks nonresponsive on vent Objective Medications Current Medications Medications (Trade) Dose Ordered Sig/Rosanna Route Start Time Stop Time Status Last Admin (NS Flush) 2 ml UNSCH PRN IV FLUSH 06/22/17 15:15 (NS Flush) 2 ml BID IV FLUSH 06/22/17 21:00 06/25/17 21:50 (Pepcid Inj) 10 mg Q12HR IV PUSH 06/22/17 21:00 06/26/17 10:14 (Ativan Inj) 1 mg Q1H PRN IV 06/22/17 15:15 (Tears Naturale Opth Soln) 1 drop TID EACH EYE 06/22/17 18:00 06/25/17 16:23 (Zofran Inj) 4 mg Q6H PRN IV 06/22/17 15:15 (Duoneb Neb) 1 ampule Q6HR NEB INH 06/22/17 16:00 06/26/17 09:19 (Albuterol Neb) 2.5 mg Q2HR NEB PRN INH 06/22/17 15:15 (Heparin Inj) 5,000 units Q12H SQ 06/22/17 15:15 06/26/17 04:14 Miscellaneous Information 1 Q361D XX 06/22/17 15:15 06/22/17 15:15 (Chlorhexidine 2% Cloth) 3 pack Taper DAILY@04 TOP 06/23/17 04:00 06/19/18 03:59 06/26/17 04:00 (Chlorhexidine 2% Cloth) 3 pack UNSCH PRN TOP 06/22/17 15:15 (Indy-Colace) 1 tab BID PO 06/22/17 21:00 06/26/17 10:14 (Milk Of Magnesia Liq) 30 ml Q12H PRN PO 06/22/17 15:15 (Senokot) 17.2 mg Q12H PRN PO 06/22/17 15:15 (Dulcolax Supp) 10 mg DAILY PRN RECTAL 06/22/17 15:15 (Lactulose Liq) 30 ml DAILY PRN PO 06/22/17 15:15 (Peridex 0.12% Liq) 15 ml BID@08,20 MT 06/22/17 20:00 06/25/17 21:50 Fentanyl Citrate 250 ml @ 5 mls/hr TITRATE PRN IV 06/22/17 15:15 (Trandate Inj) 10 mg Q2H PRN IV 06/22/17 15:45 Nicardipine HCl 25 mg/Sodium Chloride 260 ml @ 52 mls/hr TITRATE PRN IV 06/22/17 16:00 (Aspirin Chew) 81 mg DAILY PO 06/23/17 09:00 06/26/17 10:13 (D50w (Vial) Inj) 50 ml UNSCH PRN IV PUSH 06/22/17 15:45 (Glucagon Inj) 1 mg UNSCH PRN OTHER 06/22/17 15:45 Piperacillin Sod/ Tazobactam Sod 50 ml @ 100 mls/hr Q6H IV 06/22/17 17:00 06/26/17 04:14 (Lactulose Liq) 30 ml QID PO 06/22/17 18:00 06/26/17 10:13 Propofol 100 ml @ 1.65 mls/hr TITRATE PRN IV 06/22/17 17:15 06/26/17 10:12 (NovoLOG SUPPLEMENTAL SCALE) 1 Q6HR SQ 06/23/17 12:00 06/24/17 23:59 (Free Water) VOLUME: 200 ML Q4HR G-TUBE 06/24/17 12:00 06/26/17 04:14 (Lopressor) 12.5 mg Q12HR PO 06/24/17 21:00 06/26/17 10:13 (Pill Splitter) 1 ea UNSCH PRN OTHER 06/24/17 15:00 Pharmacy Profile Note 0 ml @ 0 mls/hr UNSCH OTHER 06/24/17 22:30 Vancomycin HCl 1000 mg/Sodium Chloride 250 ml @ 250 mls/hr Q24H IV 06/26/17 02:00 06/26/17 01:45 Miscellaneous Information SPECIFIC LAB TO BE DRAWN: VANCO TROUGH DATE... ONCE ONCE .XX 06/27/17 01:45 06/27/17 01:46 Vital Signs / I&O Vital Signs Date Time Temp Pulse Resp B/P (MAP) Pulse Ox O2 Delivery O2 Flow Rate FiO2 06/26/17 11:35 100 35 06/26/17 10:00 78 06/26/17 08:00 35 06/26/17 08:00 78 06/26/17 08:00 98.3 73 15 143/94 (110) 99 06/26/17 07:30 35 06/26/17 07:30 100 35 06/26/17 06:00 66 06/26/17 04:37 100 35 06/26/17 04:00 35 06/26/17 04:00 72 06/26/17 04:00 100.0 72 18 132/88 (103) 100 06/26/17 02:00 70 06/26/17 01:00 99 35 06/26/17 00:00 100.7 72 18 146/93 (110) 98 06/26/17 00:00 72 06/26/17 00:00 35 06/25/17 22:32 99 35 06/25/17 22:00 76 06/25/17 20:30 100 35 06/25/17 20:00 75 06/25/17 20:00 100.0 75 17 149/97 (114) 100 06/25/17 20:00 35 06/25/17 18:15 78 06/25/17 17:39 35 06/25/17 16:51 35 06/25/17 16:51 87 18 160/95 (116) 99 06/25/17 16:51 87 06/25/17 15:47 99 35 06/25/17 14:00 78 I/O 06/25/17 06/25/17 06/25/17 06/26/17 06/26/17 06/26/17 07:00 15:00 23:00 07:00 15:00 23:00 Intake Total 940 ml 677 ml 697 ml Output Total 1000 ml 800 ml 1500 ml Balance -60 ml -123 ml -803 ml Intake Oral 0 ml IV Total 350 ml 50 ml 260 ml Tube Feeding 530 ml 427 ml 437 ml Tube Irrigant 60 ml 200 ml Output Urine Total 1000 ml 800 ml 1500 ml # Bowel Movements 1 1 Physical Exam GENERAL: Well developed, well nourished. No acute distress, intubated HEENT: Jugular venous pressure is normal. CHEST: Lungs clear to auscultation bilaterally. Unlabored respiratory effort. CARDIAC: Regular rate and rhythm without S3, S4, or murmur. ABDOMEN: Soft, nontender, no hepatosplenomegaly. Bowel sounds present. EXTREMITIES: No clubbing, cyanosis, or edema. Laboratory Laboratory Tests Test 06/26/17 09:17 White Blood Count 10.5 TH/MM3 Red Blood Count 4.37 MIL/MM3 Hemoglobin 13.6 GM/DL Hematocrit 41.5 % Mean Corpuscular Volume 94.9 FL Mean Corpuscular Hemoglobin 31.1 PG Mean Corpuscular Hemoglobin Concent 32.8 % Red Cell Distribution Width 13.5 % Platelet Count 112 TH/MM3 Mean Platelet Volume 10.5 FL Neutrophils (%) (Auto) 81.3 % Lymphocytes (%) (Auto) 9.4 % Monocytes (%) (Auto) 8.6 % Eosinophils (%) (Auto) 0.4 % Basophils (%) (Auto) 0.3 % Neutrophils # (Auto) 8.5 TH/MM3 Lymphocytes # (Auto) 1.0 TH/MM3 Monocytes # (Auto) 0.9 TH/MM3 Eosinophils # (Auto) 0.0 TH/MM3 Basophils # (Auto) 0.0 TH/MM3 CBC Comment DIFF FINAL Differential Comment Blood Urea Nitrogen 39 MG/DL Creatinine 1.31 MG/DL Random Glucose 148 MG/DL Total Protein 6.3 GM/DL Albumin 2.2 GM/DL Calcium Level 8.2 MG/DL Phosphorus Level 2.8 MG/DL Magnesium Level 2.6 MG/DL Alkaline Phosphatase 102 U/L Aspartate Amino Transf (AST/SGOT) 138 U/L Alanine Aminotransferase (ALT/SGPT) 1506 U/L Total Bilirubin 0.6 MG/DL Sodium Level 148 MEQ/L Potassium Level 3.5 MEQ/L Chloride Level 111 MEQ/L Carbon Dioxide Level 32.3 MEQ/L Anion Gap 5 MEQ/L Estimat Glomerular Filtration Rate 41 ML/MIN Assessment and Plan Problem List: (1) Cardiomyopathy ICD Codes: I42.9 - Cardiomyopathy, unspecified Plan: EF 40-45% by ECHO on BB, add neeraj now that renal function is improved conservative measures given the comorbid conditions (2) Acute respiratory failure ICD Codes: J96.00 - Acute respiratory failure, unspecified whether with hypoxia or hypercapnia Plan: on vent per [facility] (3) Acute kidney injury ICD Codes: N17.9 - Acute kidney failure, unspecified (4) CVA (cerebral vascular accident) ICD Codes: I63.9 - Cerebral infarction, unspecified Plan: per neuro (5) Elevated troponin ICD Codes: R74.8 - Abnormal levels of other serum enzymes (6) COPD (chronic obstructive pulmonary disease) ICD Codes: J44.9 - Chronic obstructive pulmonary disease, unspecified (7) Tobacco abuse ICD Codes: Z72.0 - Tobacco use Problem Qualifiers (1) CVA (cerebral vascular accident): Qualified Codes: I63.9 - Cerebral infarction, unspecified (2) COPD (chronic obstructive pulmonary disease): Qualified Codes: J43.9 - Emphysema, unspecified Emily Harkins MD Jun 26, 2017 12:13
[2017-06-26] MEDS: CHLORHEXIDINE 0.12% (ORAL KIT) 15 ML CUP MT SCH ×4 (12:58→20:35)
[2017-06-26] MEDS ORDERED: POTASSIUM CHLORIDE 20 MEQ PWD PACKET NG ONE ×2 (14:00)
[2017-06-26] MEDS: RESP: ALBUTEROL 2.5 MG/3 ML NEB (PRN) INH ×2 (20:13)
[2017-06-26] MEDS: PANTOPRAZOLE SODIUM 40 MG VIAL IV PUSH SCH ×2 (23:41)
[2017-06-27] VITALS (36 sets, daily range): BP systolic 142–172; BP diastolic 86–104; PULSE 57–75; RESP 17–26; O2SAT 97–100
[2017-06-27 00:38] LABS: HEMATOCRIT 42.3 % (35.0-46.0); HEMOGLOBIN 13.6 GM/DL (11.6-15.3)
[2017-06-27] MEDS ORDERED: PHARMACY ORDERED LAB ONE ×2 (01:45)
[2017-06-27 05:26] LABS: AST (GOT) 82 U/L (15-37); BICARBONATE 27.9 MEQ/L (21.0-32.0); BLOOD UREA NITROGEN 37 MG/DL (7-18); CALCIUM 8.4 MG/DL (8.5-10.1); CHLORIDE 112 MEQ/L (98-107); CREATININE 1.27 MG/DL (0.50-1.00); GLOMERULAR FILTRATION RATE 43 ML/MIN (>89); GLUCOSE,RANDOM 114 MG/DL (74-106); MAGNESIUM 2.5 MG/DL (1.5-2.5); SODIUM (NA) 148 MEQ/L (136-145)
[2017-06-27 05:28] LABS: ALKALINE PHOSPHATASE 85 U/L (45-117); ALT (GPT) 964 U/L (10-53); PHOSPHORUS 3.5 MG/DL (2.5-4.9); TOTAL BILIRUBIN ADULT 0.7 MG/DL (0.2-1.0); TOTAL PROTEIN 6.3 GM/DL (6.4-8.2); VANCOMYCIN TROUGH 7.5 MCG/ML (5.0-10.0)
--- NOTE | 2017-06-27 05:44 | RADRPT ---
EXAM DATE/TIME: 06/27/2017 04:51 [place] COMPARISON: CHEST SINGLE AP, June 24, 2017, 11:39. INDICATIONS : Shortness of breath, possible pulmonary disease. MEDICAL HISTORY : Chronic obstructive pulmonary disease. SURGICAL HISTORY : Hysterectomy. ENCOUNTER: Subsequent ACUITY: 1 week PAIN SCORE: Non-responsive. LOCATION: Bilateral chest FINDINGS: Mild bibasilar consolidation not significantly changed. Elevation of the left hemidiaphragm again not ed. No pneumothorax. Endotracheal tube tip is approximately 4 cm above the fermin. There's a nasogastric tube coursing int o the stomach. CONCLUSION: No significant change. Mild bibasilar consolidation again noted. Christopher Gutierrez MD on June 27, 2017 at 5:42 Board Certified Radiologist. This report was verified electronically.
[2017-06-27] MEDS: PIPERACIL-TAZO 2.25 GM PREMIX 50 ML IV SCH ×6 (05:48→16:25)
[2017-06-27] MEDS: INSULIN ASPART SUPPLEMENTAL SCALE SQ SCH ×6 (05:48→18:00)
[2017-06-27] MEDS: CHLORHEXIDINE GLUCONATE 2 % 1 PACK (2 CLOTHS) TOP SCH ×2 (05:48)
[2017-06-27] MEDS: FREE WATER G-TUBE SCH ×10 (05:48→20:02)
[2017-06-27] MEDS: PROPOFOL 1000 MG/100 ML INJ 100 ML IV PRN ×4 (05:49→20:05)
[2017-06-27 05:53] LABS: INTERNATIONAL NORMALIZED RATIO 1.1 RATIO; PROTHROMBIN TIME - PATIENT 12.7 SEC (9.8-11.6)
[2017-06-27] MEDS: VANCOMYCIN 1,000 MG/NS 250 ML IV SCH ×4 (06:11)
[2017-06-27] MEDS: CHLORHEXIDINE 0.12% (ORAL KIT) 15 ML CUP MT SCH ×4 (08:13→20:03)
[2017-06-27] MEDS: ARTIFICIAL TEARS OPTH SOLN 15 ML BTL EACH EYE SCH ×6 (08:14→18:45)
[2017-06-27] MEDS: LISINOPRIL 5 MG TAB OG-TUBE SCH ×2 (08:14)
[2017-06-27] MEDS: LACTULOSE SYRUP 20 GM/30 ML CUP PO SCH ×8 (08:14→20:02)
[2017-06-27] MEDS: METOPROLOL TARTRATE 25 MG TAB PO SCH ×4 (08:14→20:02)
[2017-06-27] MEDS: SODIUM CHLORIDE 0.9% FLUSH 10 ML FLUSH IV FLUSH SCH ×4 (08:14→20:02)
[2017-06-27] MEDS: DOCUSATE SODIUM 50 MG/SENNA 8.6 MG TAB PO SCH ×4 (08:14→20:02)
[2017-06-27] MEDS: PANTOPRAZOLE SODIUM 40 MG VIAL IV PUSH SCH ×2 (10:37)
--- NOTE | 2017-06-27 10:54 | PD.CONS ---
HPI History of Present Illness This is a 62 year old female who as admitted on 06/22/17. She was brought to hospital by EMS due to not being able to get out of her chair. EMS said the patient had urinated on herself. PMH significant for COPD, depression, and tobacco dependence. She chronically uses alprazolam. CT of brain showed CVA. Urine toxicology screen positive for benzodiazepine and THC. Patient was given Narcan and emergently intubated. GI was consulted for evaluation of GI bleeding. Blood noted in both [place] and [place]ign[place] last night. Aspirin and SubQ Heparin have been placed on hold. PFSH Past Medical History COPD Depression Chronic benzodiazepine use Past Surgical History Appendectomy Coded Allergies: No Known Allergies (Verified , 06/22/17) Medications Current Medications Medications (Trade) Dose Ordered Sig/Rosanna Route PRN Reason Start Time Stop Time Status Last Admin Dose Admin Sodium Chloride (NS Flush) 2 ml UNSCH PRN IV FLUSH FLUSH AFTER USING IV ACCESS 06/22/17 15:15 Sodium Chloride (NS Flush) 2 ml BID IV FLUSH 06/22/17 21:00 06/27/17 08:14 Lorazepam (Ativan Inj) 1 mg Q1H PRN IV Agitation/Sedation 06/22/17 15:15 Artificial Tears (Tears Naturale Opth Soln) 1 drop TID EACH EYE 06/22/17 18:00 06/27/17 08:14 Ondansetron HCl (Zofran Inj) 4 mg Q6H PRN IV NAUSEA OR VOMITING 06/22/17 15:15 Albuterol Sulfate (Albuterol Neb) 2.5 mg Q2HR NEB PRN INH SOB/WHEEZING 06/22/17 15:15 06/26/17 20:13 Heparin Sodium (Porcine) (Heparin Inj) 5,000 units Q12H SQ 06/22/17 15:15 Future Hold 06/26/17 15:00 Miscellaneous Information 1 Q361D XX 06/22/17 15:15 06/22/17 15:15 Chlorhexidine Gluconate (Chlorhexidine 2% Cloth) 3 pack Taper DAILY@04 TOP 06/23/17 04:00 06/19/18 03:59 06/27/17 05:48 Chlorhexidine Gluconate (Chlorhexidine 2% Cloth) 3 pack UNSCH PRN TOP HYGIENIC CARE 06/22/17 15:15 Senna/Docusate Sodium (Indy-Colace) 1 tab BID PO 06/22/17 21:00 06/26/17 10:14 Magnesium Hydroxide (Milk Of Magnesia Liq) 30 ml Q12H PRN PO MILD - MODERATE CONSTIPATION 06/22/17 15:15 Sennosides (Senokot) 17.2 mg Q12H PRN PO MODERATE - SEVERE CONSTIPATION 06/22/17 15:15 Bisacodyl (Dulcolax Supp) 10 mg DAILY PRN RECTAL SEVERE CONSITIPATION 06/22/17 15:15 Lactulose (Lactulose Liq) 30 ml DAILY PRN PO SEVERE CONSITIPATION 06/22/17 15:15 Chlorhexidine Gluconate (Peridex 0.12% Liq) 15 ml BID@08,20 MT 06/22/17 20:00 06/27/17 08:13 Fentanyl Citrate 250 ml @ 5 mls/hr TITRATE PRN IV SEDATION 06/22/17 15:15 Labetalol HCl (Trandate Inj) 10 mg Q2H PRN IV For SBP > 220 or DBP > 120 06/22/17 15:45 Nicardipine HCl 25 mg/Sodium Chloride 260 ml @ 52 mls/hr TITRATE PRN IV Maintain BP goal 06/22/17 16:00 Aspirin (Aspirin Chew) 81 mg DAILY PO 06/23/17 09:00 Future Hold 06/26/17 10:13 Dextrose (D50w (Vial) Inj) 50 ml UNSCH PRN IV PUSH HYPOGLYCEMIA-SEE COMMENTS 06/22/17 15:45 Glucagon (Glucagon Inj) 1 mg UNSCH PRN OTHER HYPOGLYCEMIA-SEE COMMENTS 06/22/17 15:45 Piperacillin Sod/ Tazobactam Sod 50 ml @ 100 mls/hr Q6H IV 06/22/17 17:00 06/27/17 05:48 Lactulose (Lactulose Liq) 30 ml QID PO 06/22/17 18:00 06/27/17 08:14 Propofol 100 ml @ 1.65 mls/hr TITRATE PRN IV Ordered RASS 06/22/17 17:15 06/27/17 05:49 Insulin Aspart (NovoLOG SUPPLEMENTAL SCALE) 1 Q6HR SQ 06/23/17 12:00 06/24/17 23:59 Water (Free Water) VOLUME: 200 ML Q4HR G-TUBE 06/24/17 12:00 06/27/17 08:00 Metoprolol Tartrate (Lopressor) 12.5 mg Q12HR PO 06/24/17 21:00 06/27/17 08:14 Miscellaneous (Pill Splitter) 1 ea UNSCH PRN OTHER SEE LABEL COMMENTS 06/24/17 15:00 Pharmacy Profile Note 0 ml @ 0 mls/hr UNSCH OTHER 06/24/17 22:30 Lisinopril (Prinivil) 5 mg DAILY OG-TUBE 06/27/17 09:00 06/27/17 08:14 Pantoprazole Sodium (Protonix Inj) 40 mg Q12H IV PUSH 06/26/17 23:00 06/26/17 23:41 Vancomycin HCl 1000 mg/Sodium Chloride 250 ml @ 250 mls/hr Q18H IV 06/28/17 00:00 Miscellaneous Information SPECIFIC LAB TO BE JAYLEN... ONCE ONCE .XX 06/29/17 11:45 06/29/17 11:46 Family History Unknown Social History Tobacco, 1 PPD 20 years. ETOH, unknown Illicit Drugs, Positive for THC Review of Systems ROS Unable to obtain GI Exam Vitals I&O Vital Signs Date Time Temp Pulse Resp B/P (MAP) Pulse Ox O2 Delivery O2 Flow Rate FiO2 06/27/17 10:00 65 06/27/17 09:00 99.7 63 18 157/95 (115) 100 06/27/17 08:30 99.9 68 18 150/95 (113) 100 06/27/17 08:00 65 06/27/17 08:00 99 35 06/27/17 08:00 35 06/27/17 08:00 99.9 65 18 149/87 (107) 100 06/27/17 07:30 99.9 66 18 154/94 (114) 100 06/27/17 07:00 99.9 66 18 158/97 (117) 100 06/27/17 06:30 99.9 67 18 156/94 (114) 100 06/27/17 06:00 68 06/27/17 06:00 100.0 68 18 148/96 (113) 100 06/27/17 05:30 99.1 64 18 158/97 (117) 100 06/27/17 05:00 99.9 64 18 158/96 (116) 100 06/27/17 04:20 97 35 06/27/17 04:00 63 06/27/17 04:00 35 06/27/17 04:00 99.3 63 18 163/99 (120) 100 06/27/17 02:00 65 06/27/17 00:08 100 35 06/27/17 00:00 35 06/27/17 00:00 72 06/27/17 00:00 100.2 72 18 142/89 (106) 99 06/26/17 22:00 75 06/26/17 20:08 98 35 06/26/17 20:00 102.6 88 18 153/89 (110) 98 06/26/17 20:00 35 06/26/17 20:00 88 06/26/17 18:00 78 06/26/17 16:24 97 35 06/26/17 16:00 99.9 86 21 161/93 (115) 97 06/26/17 16:00 35 06/26/17 16:00 78 06/26/17 14:00 78 06/26/17 12:00 78 06/26/17 12:00 35 06/26/17 12:00 99.5 75 19 146/90 (108) 98 06/26/17 11:35 100 35 I/O 06/26/17 06/26/17 06/26/17 06/27/17 06/27/17 06/27/17 06:59 14:59 22:59 06:59 14:59 22:59 Intake Total 697 ml 150 ml 316 ml 287 ml 250 ml Output Total 1500 ml 1000 ml 800 ml Balance -803 ml 150 ml -684 ml -513 ml 250 ml Intake Oral 0 ml IV Total 260 ml 150 ml 316 ml 250 ml Tube Feeding 437 ml 287 ml Output Urine Total 1500 ml 1000 ml 800 ml # Bowel Movements 1 1 5 Imaging Last Impressions Chest X-Ray 06/27/17 0600 Signed Impressions: Service Date/Time: Tuesday, June 27, 2017 04:51 - CONCLUSION: No significant change. Mild bibasilar consolidation again noted. Christopher Gutierrez MD Lung Scan- Nuclear Medicine 06/24/17 0000 Signed Impressions: Service Date/Time: Saturday, June 24, 2017 12:21 - CONCLUSION: 1. Low probability of pulmonary embolism Jose Richard MD Head Magnetic Resonance Angiography 06/24/17 0000 Signed Impressions: Service Date/Time: Saturday, June 24, 2017 13:37 - CONCLUSION: Negative for major branch vessels obstruction in spite of MRI findings. Rudy Meng MD FACR Brain MRI 06/24/17 0000 Signed Impressions: Service Date/Time: Saturday, June 24, 2017 13:37 - CONCLUSION: Findings consistent with acute infarct left sylvian region anteriorly without hemorrhage. Rudy Meng MD FACR Head CT 06/22/17 1225 Signed Impressions: Service Date/Time: Thursday, June 22, 2017 14:22 - CONCLUSION: 1. Acute ischemic infarct involving the left insular cortex Jose Richard MD Carotid Artery Ultrasound 06/22/17 0000 Signed Impressions: Service Date/Time: Thursday, June 22, 2017 15:56 - CONCLUSION: No evidence of flow-limiting carotid stenosis. Christopher Leonardo MD Abdomen Ultrasound 06/22/17 0000 Signed Impressions: Service Date/Time: Thursday, June 22, 2017 16:30 - CONCLUSION: Distended gallbladder with wall thickening and internal debris. Mild calyceal dilatation involving the kidneys bilaterally Christopher Leonardo MD Laboratory Test 06/27/17 00:23 06/27/17 04:20 06/27/17 05:00 Hemoglobin 13.6 GM/DL Hematocrit 42.3 % Blood Urea Nitrogen 37 MG/DL Creatinine 1.27 MG/DL Random Glucose 114 MG/DL Total Protein 6.3 GM/DL Albumin 2.0 GM/DL Calcium Level 8.4 MG/DL Phosphorus Level 3.5 MG/DL Magnesium Level 2.5 MG/DL Alkaline Phosphatase 85 U/L Aspartate Amino Transf (AST/SGOT) 82 U/L Alanine Aminotransferase (ALT/SGPT) 964 U/L Total Bilirubin 0.7 MG/DL Sodium Level 148 MEQ/L Potassium Level 4.0 MEQ/L Chloride Level 112 MEQ/L Carbon Dioxide Level 27.9 MEQ/L Anion Gap 8 MEQ/L Estimat Glomerular Filtration Rate 43 ML/MIN Vancomycin Level Trough 7.5 MCG/ML Prothrombin Time 12.7 SEC Prothromb Time International Ratio 1.1 RATIO Activated Partial Thromboplast Time 24.9 SEC Fibrinogen 357 mg/dL Date/Time Source Procedure Growth Status 06/25/17 01:40 Blood Peripheral Aerobic Blood Culture - Preliminary NO GROWTH IN 1 DAY Resulted 06/25/17 01:40 Blood Peripheral Anaerobic Blood Culture - Preliminary NO GROWTH IN 1 DAY Resulted 06/25/17 10:00 Sputum Endotracheal Gram Stain - Final Resulted 06/25/17 10:00 Sputum Culture - Preliminary Gram Negative Arvin Resulted 06/22/17 13:30 Urine Catheterized Urine Urine Culture - Final 10-50,000 CFU/ML MIXED GRAM POSITIVE ... Complete Physical Examination HEENT: Normocephalic; atraumatic; no jaundice. Orotracheally intubated NECK: Neck is supple. CHEST: CTA CARDIAC: RRR with no murmur gallop or rubs. ABDOMEN: Soft, nondistended, nontender; hypoactive bowel sounds EXTREMITIES: 1+ pitting LE edema SKIN: Normal; no rash; no jaundice. 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 Aspirin and SubQ Heparin have been placed on hold. HH stable, 13.6/42.3, most recent labs pending. Vitals stable. Distended gallbladder, Abdominal US 06/22/17--CONCLUSION: Distended gallbladder with wall thickening and internal debris. Mild calyceal dilatation involving the kidneys bilaterally. HIDA Scan ordered for this AM. Ammonia elevated, 62 (06/25). On Lactulose Hepatitis C reactive, Hep C genotype/viral load pending. AST 82, ALT 94. PLAN: - Consider EGD, will hold off on this for now - Notify GI if active bleeding. - Monitor HH, transfuse as necessary - Continue PPI - Await Hep C Genotype/Viral Load - HIDA scan ordered for distended gallbladder, await results - Continue Lactulose for elevated ammonia level - Further recommendations to follow based on results of above. Patient seen and examined by Dr. Whitmore and myself and this note is written on his behalf. Teresa Fernandez Jun 27, 2017 10:54
[2017-06-27 12:05] LABS: AUTOMATED NEUTROPHIL # 7.9 TH/MM3 (1.8-7.7); BASOPHIL % 0.3 % (0.0-2.0); EOSINOPHIL # 0.1 TH/MM3 (0-0.4); EOSINOPHIL % 0.8 % (0.0-4.0); HEMATOCRIT 39.8 % (35.0-46.0); LYMPH % 9.7 % (9.0-44.0); MEAN CELL VOLUME 94.8 FL (80.0-100.0); MEAN CORPUSCULAR HGB CONC 32.7 % (32.0-36.0); MEAN PLATELET VOLUME 10.4 FL (7.0-11.0); MONO % 9.5 % (0.0-8.0); MONOCYTE # 0.9 TH/MM3 (0-0.9); NEUT % 79.7 % (16.0-70.0); PLATELET COUNT 122 TH/MM3 (150-450); RED CELL DISTRIBUTION WIDTH 13.5 % (11.6-17.2)
[2017-06-27 12:42] LABS: BANDS 2 % (0-6); LYMPHOCYTES 7 % (9-44); MONOCYTES 8 % (0-8); MYELOCYTES 1 % (0-0); NEUTROPHIL # MANUAL DIFF 8.5 TH/MM3 (1.8-7.7); POLYS (SEG NEUTROPHILS) 82 % (16-70)
--- NOTE | 2017-06-27 13:06 | HHI.CCPN ---
Subjective Remarks/Hospital Course This is a 62-year-old female. Date of admission 06/22/2017. Past medical history includes COPD, depression and ongoing tobaccoism. She chronically uses alprazolam. 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 She presents to [facility] with a history of since Tuesday he's been unable to get her out of the chair. EMS said the patient had urinated on herself. She was poorly responsive and had 1 mm pinpoint pupils. They administered 0.4 of Narcan at which point she moved all of her extremities but didn't vocalize anything intelligible. She was emergently intubated using succinylcholine and etomidate. Included CT the brain which revealed 2.5 cm left insular cortex CVA, patient was noted be in acute kidney injury with a creatinine of 3.8. Lactic acid 2.7. Elevated transaminases/pneumonia and elevated troponin of 2.2. EKG showed normal sinus rhythm with nonspecific ST-T changes. UA revealed cystitis. Urine toxicology screen positive for benzodiazepine and THC. 06/23: Eyes open to voice/stimulation this AM. Withdrawals left upper, lower along with right lower extremity. No withdrawal right upper extremity. Pupils are reactive. Positive gag. Afebrile. Hemodynamically stable. MRI today after clearance from radiology. Troponin downtrending 06/24: Tmax 101.7. Currently 99.9. +2 L. opens eyes to voice. One bowel movement. Tolerating tube feeds. Sedation vacation today. Withdrawing to extremities. 06/25: Tmax 102. Opens eyes to voice. Withdraws to left upper lobe extremity and right lower extremity. Currently on minimal propofol 3 mg/kg per minute. No obvious peripheral upper or lower extremity edema. Possible infiltrate on chest x-ray. White Blood cell count normal. Subjective 06/26: Tmax 100.7. Currently 100. Opens eyes to voice. Withdrawals left upper , left lower and right lower extremity. Tolerating tube feeds at 40 cc an hour. Positive BM. 06/27: Developed upper and lower GIB overnight. Gastroenterology following, EGD in a.m. unless hemodynamically unstable. Hemoglobin remained stable. Patient remains encephalopathic despite sedation hold. Sputum culture growing stenotrophomonas-Levaquin added Objective Vital Signs Date Time Temp Pulse Resp B/P (MAP) Pulse Ox O2 Delivery O2 Flow Rate FiO2 06/27/17 12:30 99.9 67 20 158/94 (115) 98 06/27/17 12:00 35 Intake and Output 06/27/17 06/27/17 06/28/17 08:00 16:00 00:00 Intake Total 287 ml 250 ml Output Total 800 ml Balance -513 ml 250 ml Result Diagram: 06/27/17 1155 06/27/17 0420 Other Results Microbiology Date/Time Source Procedure Growth Status 06/25/17 10:00 Sputum Endotracheal Gram Stain - Final Complete 06/25/17 10:00 Sputum Culture - Final Stenotrophomonas Maltophilia Complete 06/25/17 10:00 Nasal Aspirate Influenza Types A,B Antigen (JOLLY) - Final NEGATIVE FOR FLU A AND B ANTIGEN.... Complete Imaging Last Impressions Lung Scan-VQ Nuclear Medicine 06/24/17 0000 Signed Impressions: Service Date/Time: Saturday, June 24, 2017 12:21 - CONCLUSION: 1. Low probability of pulmonary embolism Jose Richard MD Head Magnetic Resonance Angiography 06/24/17 0000 Signed Impressions: Service Date/Time: Saturday, June 24, 2017 13:37 - CONCLUSION: Negative for major branch vessels obstruction in spite of MRI findings. Rudy Meng MD FACR Chest X-Ray 06/24/17 0000 Signed Impressions: Service Date/Time: Saturday, June 24, 2017 11:39 - CONCLUSION: Support the breast in good position. Increasing bibasilar parenchymal changes. Rudy Meng MD FACR Brain MRI 06/24/17 0000 Signed Impressions: Service Date/Time: Saturday, June 24, 2017 13:37 - CONCLUSION: Findings consistent with acute infarct left sylvian region anteriorly without hemorrhage. Rduy Meng MD FACR Head CT 06/22/17 1225 Signed Impressions: Service Date/Time: Thursday, June 22, 2017 14:22 - CONCLUSION: 1. Acute ischemic infarct involving the left insular cortex Jose Richard MD Carotid Artery Ultrasound 06/22/17 0000 Signed Impressions: Service Date/Time: Thursday, June 22, 2017 15:56 - CONCLUSION: No evidence of flow-limiting carotid stenosis. Christopher Leonardo MD Abdomen Ultrasound 06/22/17 0000 Signed Impressions: Service Date/Time: Thursday, June 22, 2017 16:30 - CONCLUSION: Distended gallbladder with wall thickening and internal debris. Mild calyceal dilatation involving the kidneys bilaterally Christopher Leonardo MD Objective Remarks GENERAL: 62-year-old female, critically ill currently orotracheally intubated SKIN: Warm and dry. No rash. HEAD: Atraumatic. Normocephalic. EYES: Pupils equal and round about 1 mm bilaterally and sluggish. No scleral icterus. No injection or drainage. ENT: No nasal bleeding or discharge. Mucous membranes pink and moist. NECK: Trachea midline. No JVD. CARDIOVASCULAR: Regular rate and rhythm. S1, S2. No cervical without murmur RESPIRATORY: Breath sounds equal bilaterally. Few basilar crackles GASTROINTESTINAL: Abdomen soft, non-tender, nondistended. No bowel sounds are appreciated MUSCULOSKELETAL: Extremities 1+ pitting lower extremity edema. No obvious deformities. NEUROLOGICAL: Opens eyes barely to voice. Withdraws to pain in left upper, left lower and right lower extremity. Not in right upper extremity A/P Assessment and Plan Neuro/Psych: Left insular cortex CVA 2.5 cm Chronic benzodiazepine use THC use Hyperammonemia Off all sedation, remains encephalopathic. Ammonia downtrending [address] head 06/22 revealed 2.5 cm left insular cortex CVA Carotid Dopplers negative 2-D echocardiogram revealed EF 40-45%. Right atrial and right ventricular dilatation. Hemaglobin A1c 6.5/lipids revealed low HDL 38. Low-cholesterol 95. Continue on baby aspirin 81 mg daily MRI brain 06/24 revealed left sylvian fissure CVA. MRA brain 06/24 negative for occlusive disease Holding Hmg Co reductase secondary to elevated transaminases. CV: Hypertension Lactic acidosis - resolving Elevated troponin EKG revealed normal sinus rhythm 98. Nonspecific ST-T changes. Cycle troponins. Downward trending at 0.21 2-D echocardiogram revealed EF 45%. RV, RA dilated. The pulmonary arterial pressures are elevated. Cardiology consultation appreciated. Workup once neurological issues have resolved Baby aspirin 81 milligrams daily Currently on free water flushes 200 cc every 4 hours. Resp: Acute hypoxemic respiratory failure Pneumonia with Stenotrophomonas PRVC 16/500///40. Ventilator bundle Bronchodilator therapy with albuterol/ipratropium aerosols every 6 hours with albuterol nebs every 2 hours. Spontaneous breathing trials daily, mental status won't permit extubation Chest x-ray ordered for a.m. 06/28 Levaquin added for stenotrophomonas GI: Upper GI bleed Elevated transaminases Elevated ammonia Hypoalbuminemia Hepatitis C antibody positive Nepro goal 40 cc an hour-on hold. Nothing by mouth, IV Protonix gtt. Hold Docusate sodium/senna one tablet twice a day for bowel regimen On lactulose 30 cc 4 times a day. Ammonia 51. Hep C genotype/viral load pending HIDA scan 06/28 with distended gallbladder GI following-Endoscopy in AM 06/28 : History of incontinence Persaud catheter placed for accurate I's and O's in a critically ill patient Endo: Hyperglycemia Low TSH. Normal T4 1.17 Sliding-scale insulin with Accu-Cheks to maintain euglycemia/every 6 hours Renal: Acute kidney injury resolving Possible secondary to dehydration rhabdo. Urine electrolytes/eosinophils negative Renal ultrasound revealed dilated bilateral calyces. Possibly will need urology evaluation when stabilizes Monitor urine output Accurate I's and O's. Creatinine this a.m. currently pending Heme: Thrombocytopenia Monitor CBC daily. Follow trends ID: Stenotrophomonas pneumonia Add Levaquin 750 mg IV every 24 hours Piperacillin/tazobactam day 5. DC Vancomycin day #3 Pertinent cultures 06/25 - sputum - stenotrophomonas 06/25 - blood cultures 2 -no growth 06/22 - UA - gram positive mixed organisms. UA / negative 06/22 - blood cultures 2 - no growth Influenza negative Unable to give acetaminophen secondary to elevated transaminases did unable to give NSAIDs secondary to elevated creatinine FEN: Hypernatremia Hypophosphatemia Potassium phosphorus 30 mmol IV 1. Replace electrolytes as clinically indicated. On free water 200 cc every 4 hours A.m. laboratories 06/26 pending MSK: PT/OT evaluate and treat Access - Utilize peripheral IV. Central line if indicated Prophylaxis - GI - famotidine - DVT - SCD/heparin subcutaneous CCT 35. Critically ill and developed acute GI bleed overnight. Started on IV Protonix infusion. Check serial H&H. Also added Levaquin for stenotrophomonas pneumonia Michael White MD Jun 27, 2017 13:06
[2017-06-27] MEDS: LEVOFLOXACIN 750 MG PREMIX INJ 150 ML IV SCH ×2 (14:30)
[2017-06-27] MEDS: PANTOPRAZOLE INJ 80 MG in SODIUM CHLORIDE 0.9% INJ 100 ML IV SCH ×4 (16:24)
[2017-06-27 19:52] LABS: HEMATOCRIT 39.5 % (35.0-46.0); HEMOGLOBIN 12.7 GM/DL (11.6-15.3)
[2017-06-28] VITALS (27 sets, daily range): BP systolic 129–172; BP diastolic 80–100; PULSE 56–100; RESP 18–35; TEMP 99.5–100.4; O2SAT 98–100
[2017-06-28] MEDS ORDERED: VANCOMYCIN 1,000 MG/NS 250 ML IV SCH ×4
[2017-06-28] MEDS: PIPERACIL-TAZO 2.25 GM PREMIX 50 ML IV SCH ×10 (00:41→22:58)
[2017-06-28] MEDS: FREE WATER G-TUBE SCH ×12 (00:41→20:00)
[2017-06-28] MEDS: PANTOPRAZOLE INJ 80 MG in SODIUM CHLORIDE 0.9% INJ 100 ML IV SCH ×12 (00:42→22:58)
[2017-06-28 01:35] LABS: ALT (GPT) 650 U/L (10-53); AST (GOT) 51 U/L (15-37); BICARBONATE 32.1 MEQ/L (21.0-32.0); BLOOD UREA NITROGEN 33 MG/DL (7-18); CHLORIDE 113 MEQ/L (98-107); CREATININE 1.32 MG/DL (0.50-1.00); GLOMERULAR FILTRATION RATE 41 ML/MIN (>89); GLUCOSE,RANDOM 109 MG/DL (74-106); MAGNESIUM 2.5 MG/DL (1.5-2.5); SODIUM (NA) 149 MEQ/L (136-145)
[2017-06-28 01:37] LABS: ALKALINE PHOSPHATASE 67 U/L (45-117); TOTAL BILIRUBIN ADULT 0.6 MG/DL (0.2-1.0)
[2017-06-28 01:47] LABS: AUTOMATED NEUTROPHIL # 6.5 TH/MM3 (1.8-7.7); BASOPHIL % 0.1 % (0.0-2.0); EOSINOPHIL # 0.2 TH/MM3 (0-0.4); EOSINOPHIL % 2.4 % (0.0-4.0); HEMATOCRIT 38.8 % (35.0-46.0); HEMOGLOBIN 12.4 GM/DL (11.6-15.3); LYMPH % 13.9 % (9.0-44.0); LYMPHOCYTE # 1.2 TH/MM3 (1.0-4.8); MEAN CELL VOLUME 96.5 FL (80.0-100.0); MEAN CORPUSCULAR HEMOGLOBIN 30.8 PG (27.0-34.0); MEAN CORPUSCULAR HGB CONC 31.9 % (32.0-36.0); MEAN PLATELET VOLUME 10.1 FL (7.0-11.0); MONO % 11.4 % (0.0-8.0); NEUT % 72.2 % (16.0-70.0); PLATELET COUNT 135 TH/MM3 (150-450); RED BLOOD COUNT 4.02 MIL/MM3 (4.00-5.30); RED CELL DISTRIBUTION WIDTH 13.6 % (11.6-17.2); WHITE BLOOD COUNT 8.9 TH/MM3 (4.0-11.0)
[2017-06-28] MEDS ORDERED: POTASSIUM PHOSPHATE MONOBASIC 500 MG TAB PO/TUBE PRN ×2 (03:30)
[2017-06-28] MEDS ORDERED: MAGNESIUM OXIDE 400 MG TAB PO PRN ×2 (03:30)
[2017-06-28] MEDS ORDERED: SODIUM PHOSPHATE INJ 30 MMOL in SODIUM CHLOR 0.9% 250 ML INJ 240 ML IV PRN ×4 (03:30)
[2017-06-28] MEDS ORDERED: MAGNESIUM SULFATE INJ 4 GM in SODIUM CHLORIDE 0.9% INJ 92 ML IV PRN ×4 (03:30)
[2017-06-28] MEDS ORDERED: POTASSIUM PHOSPHATE MONOBASIC 500 MG TAB PO PRN ×2 (03:30)
[2017-06-28] MEDS ORDERED: POTASSIUM CHLOR 20 MEQ PREMIX 100 ML IV PRN ×2 (03:30)
[2017-06-28] MEDS ORDERED: POTASSIUM PHOSPHATE INJ 30 MMOL in SODIUM CHLOR 0.9% 250 ML INJ 250 ML IV PRN ×4 (03:30)
[2017-06-28] MEDS ORDERED: POTASSIUM CHLORIDE 25 MEQ EFFERVESCENT TAB PO PRN ×2 (03:30)
[2017-06-28] MEDS ORDERED: MAGNESIUM SULFATE INJ 2 GM in SODIUM CHLORIDE 0.9% INJ 96 ML IV PRN ×4 (03:30)
[2017-06-28] MEDS ORDERED: POTASSIUM CHLOR 40 MEQ PREMIX 100 ML IV PRN ×4 (03:30)
[2017-06-28] MEDS: CHLORHEXIDINE GLUCONATE 2 % 1 PACK (2 CLOTHS) TOP SCH ×2 (04:00)
[2017-06-28] MEDS: INSULIN ASPART SUPPLEMENTAL SCALE SQ SCH ×8 (04:57→17:12)
[2017-06-28] MEDS: POTASSIUM CHLOR 20 MEQ PREMIX 100 ML IV PRN ×4 (04:58→07:10)
[2017-06-28] MEDS: PROPOFOL 1000 MG/100 ML INJ 100 ML IV PRN ×2 (05:59)
--- NOTE | 2017-06-28 06:28 | RADRPT ---
EXAM DATE/TIME: 06/28/2017 05:19 [place] COMPARISON: CHEST SINGLE AP, June 27, 2017, 4:51. INDICATIONS : Respiratory disease. MEDICAL HISTORY : None. SURGICAL HISTORY : None. ENCOUNTER: Subsequent ACUITY: 4 - 6 days PAIN SCORE: Non-responsive. LOCATION: Bilateral chest FINDINGS: Stable ETT and NGT coursing beyond the GE junction with tip omitted from the image. Stable elevation of the left hemidiaphragm with continued bibasilar airspace disease, left greater then right. Cardiom ediastinal contours are stable. Remainder of the exam is unchanged. CONCLUSION: 1. No stable elevation of the left hemidiaphragm with stable, left greater then right, bibasilar airs pace disease likely reflecting atelectasis. 2. No significant interval change. Gustavo Santoro MD on June 28, 2017 at 6:25 Board Certified Radiologist. This report was verified electronically.
[2017-06-28] MEDS: LISINOPRIL 5 MG TAB OG-TUBE SCH ×2 (08:00)
[2017-06-28] MEDS: SODIUM CHLORIDE 0.9% FLUSH 10 ML FLUSH IV FLUSH SCH ×4 (08:00→21:58)
[2017-06-28] MEDS: METOPROLOL TARTRATE 25 MG TAB PO SCH ×4 (08:00→21:00)
[2017-06-28] MEDS: DOCUSATE SODIUM 50 MG/SENNA 8.6 MG TAB PO SCH ×4 (08:00→21:00)
[2017-06-28] MEDS: LACTULOSE SYRUP 20 GM/30 ML CUP PO SCH ×8 (08:00→21:00)
[2017-06-28] MEDS: ARTIFICIAL TEARS OPTH SOLN 15 ML BTL EACH EYE SCH ×6 (08:01→17:12)
[2017-06-28] MEDS: CHLORHEXIDINE 0.12% (ORAL KIT) 15 ML CUP MT SCH ×4 (08:01→20:00)
--- NOTE | 2017-06-28 08:47 | PD.CARD.PN ---
Subjective Subjective Remarks Pt on vent Objective Medications Current Medications Medications (Trade) Dose Ordered Sig/Rosanna Route Start Time Stop Time Status Last Admin (NS Flush) 2 ml UNSCH PRN IV FLUSH 06/22/17 15:15 (NS Flush) 2 ml BID IV FLUSH 06/22/17 21:00 06/28/17 08:00 (Ativan Inj) 1 mg Q1H PRN IV 06/22/17 15:15 (Tears Naturale Opth Soln) 1 drop TID EACH EYE 06/22/17 18:00 06/28/17 08:01 (Zofran Inj) 4 mg Q6H PRN IV 06/22/17 15:15 (Albuterol Neb) 2.5 mg Q2HR NEB PRN INH 06/22/17 15:15 06/26/17 20:13 (Heparin Inj) 5,000 units Q12H SQ 06/22/17 15:15 Future Hold 06/26/17 15:00 Miscellaneous Information 1 Q361D XX 06/22/17 15:15 06/22/17 15:15 (Chlorhexidine 2% Cloth) Taper DAILY@04 TOP 06/23/17 04:00 06/19/18 03:59 06/28/17 04:00 (Chlorhexidine 2% Cloth) 3 pack UNSCH PRN TOP 06/22/17 15:15 (Indy-Colace) 1 tab BID PO 06/22/17 21:00 06/27/17 20:02 (Milk Of Magnesia Liq) 30 ml Q12H PRN PO 06/22/17 15:15 (Senokot) 17.2 mg Q12H PRN PO 06/22/17 15:15 (Dulcolax Supp) 10 mg DAILY PRN RECTAL 06/22/17 15:15 (Lactulose Liq) 30 ml DAILY PRN PO 06/22/17 15:15 (Peridex 0.12% Liq) 15 ml BID@08,20 MT 06/22/17 20:00 06/28/17 08:01 (Trandate Inj) 10 mg Q2H PRN IV 06/22/17 15:45 Nicardipine HCl 25 mg/Sodium Chloride 260 ml @ 52 mls/hr TITRATE PRN IV 06/22/17 16:00 (Aspirin Chew) 81 mg DAILY PO 06/23/17 09:00 Future Hold 06/26/17 10:13 (D50w (Vial) Inj) 50 ml UNSCH PRN IV PUSH 06/22/17 15:45 (Glucagon Inj) 1 mg UNSCH PRN OTHER 06/22/17 15:45 Piperacillin Sod/ Tazobactam Sod 50 ml @ 100 mls/hr Q6H IV 06/22/17 17:00 06/28/17 04:57 (Lactulose Liq) 30 ml QID PO 06/22/17 18:00 06/28/17 08:00 Propofol 100 ml @ 1.65 mls/hr TITRATE PRN IV 06/22/17 17:15 06/28/17 05:59 (NovoLOG SUPPLEMENTAL SCALE) 1 Q6HR SQ 06/23/17 12:00 06/24/17 23:59 (Free Water) VOLUME: 200 ML Q4HR G-TUBE 06/24/17 12:00 06/28/17 04:57 (Lopressor) 12.5 mg Q12HR PO 06/24/17 21:00 06/27/17 20:02 (Pill Splitter) 1 ea UNSCH PRN OTHER 06/24/17 15:00 (Prinivil) 5 mg DAILY OG-TUBE 06/27/17 09:00 06/28/17 08:00 Levofloxacin/ Dextrose 150 ml @ 100 mls/hr Q24H IV 06/27/17 14:00 06/27/17 14:30 Pantoprazole Sodium 80 mg/ Sodium Chloride 100 ml @ 10 mls/hr Q10H IV 06/27/17 16:00 06/28/17 00:42 Potassium Chloride 100 ml @ 50 mls/hr Q2H PRN IV 06/28/17 03:30 Potassium Chloride 100 ml @ 50 mls/hr Q2H PRN IV 06/28/17 03:30 (K-Lyte Cl Eff) 50 meq UNSCH PRN PO 06/28/17 03:30 Potassium Chloride 100 ml @ 25 mls/hr UNSCH PRN IV 06/28/17 03:30 Potassium Chloride 100 ml @ 50 mls/hr Q2H PRN IV 06/28/17 03:30 06/28/17 07:10 Magnesium Sulfate 4 gm/Sodium Chloride 100 ml @ 50 mls/hr UNSCH PRN IV 06/28/17 03:30 (Mag-Ox) 800 mg UNSCH PRN PO 06/28/17 03:30 Magnesium Sulfate 2 gm/Sodium Chloride 100 ml @ 50 mls/hr UNSCH PRN IV 06/28/17 03:30 (K-Phos) 2,000 mg Q4H PRN PO 06/28/17 03:30 Sodium Phosphate 30 mmol/Sodium Chloride 250 ml @ 42 mls/hr UNSCH PRN IV 06/28/17 03:30 (K-Phos) 2,000 mg UNSCH PRN PO/TUBE 06/28/17 03:30 Potassium Phosphate 30 mmol/ Sodium Chloride 260 ml @ 42 mls/hr UNSCH PRN IV 06/28/17 03:30 Vital Signs / I&O Vital Signs Date Time Temp Pulse Resp B/P (MAP) Pulse Ox O2 Delivery O2 Flow Rate FiO2 06/28/17 07:32 100 35 06/28/17 06:00 66 06/28/17 04:00 63 06/28/17 04:00 35 06/28/17 04:00 99.0 63 18 145/92 (109) 99 06/28/17 03:30 100 35 06/28/17 02:00 56 06/28/17 00:00 35 06/28/17 00:00 64 06/28/17 00:00 99.8 64 18 145/88 (107) 98 06/27/17 23:30 100 35 06/27/17 22:17 99 35 06/27/17 22:00 57 06/27/17 20:00 99.9 68 17 159/96 (117) 100 06/27/17 20:00 68 06/27/17 20:00 35 06/27/17 17:00 100.4 74 22 146/86 (106) 98 06/27/17 16:53 100 35 06/27/17 16:30 100.2 74 20 165/93 (117) 98 06/27/17 16:00 100.2 75 23 166/95 (118) 97 06/27/17 16:00 75 06/27/17 16:00 35 06/27/17 15:30 100.0 74 25 165/96 (119) 98 06/27/17 15:00 100.0 74 26 162/99 (120) 97 06/27/17 14:30 99.9 64 19 156/91 (112) 98 06/27/17 14:00 99.9 67 20 164/104 (124) 98 06/27/17 14:00 67 06/27/17 13:47 98 35 06/27/17 13:30 99.9 63 19 158/94 (115) 98 06/27/17 13:00 99.9 65 19 150/91 (110) 98 06/27/17 12:30 99.9 67 20 158/94 (115) 98 06/27/17 12:00 35 06/27/17 12:00 100.2 70 22 149/93 (111) 99 06/27/17 12:00 70 06/27/17 11:30 100.0 66 21 148/88 (108) 98 06/27/17 11:00 100.2 63 19 142/86 (104) 98 06/27/17 10:47 98 35 06/27/17 10:47 35 06/27/17 10:30 100.0 72 18 172/101 (124) 100 06/27/17 10:00 100.2 65 20 162/99 (120) 100 06/27/17 10:00 65 06/27/17 09:00 99.7 63 18 157/95 (115) 100 I/O 06/27/17 06/27/17 06/27/17 06/28/17 06/28/17 06/28/17 06:59 14:59 22:59 06:59 14:59 22:59 Intake Total 287 ml 300 ml 150 ml 200 ml 100 ml Output Total 800 ml 1550 ml Balance -513 ml 300 ml 150 ml -1350 ml 100 ml Intake Oral 0 ml IV Total 300 ml 150 ml 200 ml 100 ml Tube Feeding 287 ml Output Urine Total 800 ml 650 ml Stool Total 400 ml Gastric Drainage Total 500 ml # Bowel Movements 5 Physical Exam GENERAL: Well developed, well nourished. No acute distress, intubated HEENT: Jugular venous pressure is normal. CHEST: Lungs clear to auscultation bilaterally. Unlabored respiratory effort. CARDIAC: Regular rate and rhythm without S3, S4, or murmur. ABDOMEN: Soft, nontender, no hepatosplenomegaly. Bowel sounds present. EXTREMITIES: No clubbing, cyanosis, or edema. Laboratory Laboratory Tests Test 06/27/17 11:55 06/27/17 19:12 06/28/17 01:14 White Blood Count 10.0 TH/MM3 8.9 TH/MM3 Red Blood Count 4.20 MIL/MM3 4.02 MIL/MM3 Hemoglobin 13.0 GM/DL 12.7 GM/DL 12.4 GM/DL Hematocrit 39.8 % 39.5 % 38.8 % Mean Corpuscular Volume 94.8 FL 96.5 FL Mean Corpuscular Hemoglobin 31.0 PG 30.8 PG Mean Corpuscular Hemoglobin Concent 32.7 % 31.9 % Red Cell Distribution Width 13.5 % 13.6 % Platelet Count 122 TH/MM3 135 TH/MM3 Mean Platelet Volume 10.4 FL 10.1 FL Neutrophils (%) (Auto) 79.7 % 72.2 % Lymphocytes (%) (Auto) 9.7 % 13.9 % Monocytes (%) (Auto) 9.5 % 11.4 % Eosinophils (%) (Auto) 0.8 % 2.4 % Basophils (%) (Auto) 0.3 % 0.1 % Neutrophils # (Auto) 7.9 TH/MM3 6.5 TH/MM3 Lymphocytes # (Auto) 1.0 TH/MM3 1.2 TH/MM3 Monocytes # (Auto) 0.9 TH/MM3 1.0 TH/MM3 Eosinophils # (Auto) 0.1 TH/MM3 0.2 TH/MM3 Basophils # (Auto) 0.0 TH/MM3 0.0 TH/MM3 CBC Comment AUTO DIFF DIFF FINAL Differential Total Cells Counted 100 Neutrophils % (Manual) 82 % Band Neutrophils % 2 % Lymphocytes % 7 % Monocytes % 8 % Neutrophils # (Manual) 8.5 TH/MM3 Myelocytes 1 % Differential Comment FINAL DIFF MANUAL Platelet Estimate LOW Platelet Morphology Comment NORMAL Red Cell Morphology Comment NORMAL Ammonia 51 MCMOL/L Blood Urea Nitrogen 33 MG/DL Creatinine 1.32 MG/DL Random Glucose 109 MG/DL Total Protein 6.0 GM/DL Albumin 2.0 GM/DL Calcium Level 8.0 MG/DL Magnesium Level 2.5 MG/DL Alkaline Phosphatase 67 U/L Aspartate Amino Transf (AST/SGOT) 51 U/L Alanine Aminotransferase (ALT/SGPT) 650 U/L Total Bilirubin 0.6 MG/DL Sodium Level 149 MEQ/L Potassium Level 3.4 MEQ/L Chloride Level 113 MEQ/L Carbon Dioxide Level 32.1 MEQ/L Anion Gap 4 MEQ/L Estimat Glomerular Filtration Rate 41 ML/MIN Phosphorus Level 2.8 MG/DL Assessment and Plan Problem List: (1) Cardiomyopathy ICD Codes: I42.9 - Cardiomyopathy, unspecified Plan: EF 40-45% by ECHO on BB, neeraj conservative measures given the comorbid conditions available PRN (2) Acute respiratory failure ICD Codes: J96.00 - Acute respiratory failure, unspecified whether with hypoxia or hypercapnia Plan: on vent per CCM (3) Acute kidney injury ICD Codes: N17.9 - Acute kidney failure, unspecified (4) CVA (cerebral vascular accident) ICD Codes: I63.9 - Cerebral infarction, unspecified (5) Elevated troponin ICD Codes: R74.8 - Abnormal levels of other serum enzymes (6) COPD (chronic obstructive pulmonary disease) ICD Codes: J44.9 - Chronic obstructive pulmonary disease, unspecified (7) Tobacco abuse ICD Codes: Z72.0 - Tobacco use Problem Qualifiers (1) CVA (cerebral vascular accident): Qualified Codes: I63.9 - Cerebral infarction, unspecified (2) COPD (chronic obstructive pulmonary disease): Qualified Codes: J43.9 - Emphysema, unspecified Emily Harkins MD Jun 28, 2017 08:47
[2017-06-28] MEDS ORDERED: LISINOPRIL 5 MG TAB OG-TUBE SCH ×2 (10:00)
[2017-06-28 10:13] LABS: HEMATOCRIT 40.5 % (35.0-46.0); HEMOGLOBIN 13.1 GM/DL (11.6-15.3)
--- NOTE | 2017-06-28 10:35 | HHI.CCPN ---
Subjective Remarks/Hospital Course This is a 62-year-old female. Date of admission 06/22/2017. Past medical history includes COPD, depression and ongoing tobaccoism. She chronically uses alprazolam. 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 She presents to [facility] with a history of since Tuesday he's been unable to get her out of the chair. EMS said the patient had urinated on herself. She was poorly responsive and had 1 mm pinpoint pupils. They administered 0.4 of Narcan at which point she moved all of her extremities but didn't vocalize anything intelligible. She was emergently intubated using succinylcholine and etomidate. Included CT the brain which revealed 2.5 cm left insular cortex CVA, patient was noted be in acute kidney injury with a creatinine of 3.8. Lactic acid 2.7. Elevated transaminases/pneumonia and elevated troponin of 2.2. EKG showed normal sinus rhythm with nonspecific ST-T changes. UA revealed cystitis. Urine toxicology screen positive for benzodiazepine and THC. 06/23: Eyes open to voice/stimulation this AM. Withdrawals left upper, lower along with right lower extremity. No withdrawal right upper extremity. Pupils are reactive. Positive gag. Afebrile. Hemodynamically stable. MRI today after clearance from radiology. Troponin downtrending 06/24: Tmax 101.7. Currently 99.9. +2 L. opens eyes to voice. One bowel movement. Tolerating tube feeds. Sedation vacation today. Withdrawing to extremities. 06/25: Tmax 102. Opens eyes to voice. Withdraws to left upper lobe extremity and right lower extremity. Currently on minimal propofol 3 mg/kg per minute. No obvious peripheral upper or lower extremity edema. Possible infiltrate on chest x-ray. White Blood cell count normal. Subjective 06/26: Tmax 100.7. Currently 100. Opens eyes to voice. Withdrawals left upper , left lower and right lower extremity. Tolerating tube feeds at 40 cc an hour. Positive BM. 06/27: Developed upper and lower GIB overnight. Gastroenterology following, EGD in a.m. unless hemodynamically unstable. Hemoglobin remained stable. Patient remains encephalopathic despite sedation hold. Sputum culture growing stenotrophomonas-Levaquin added 06/28: Hb stable, Creat slightly increased. Na 149. Start 10/25 NS with KCL. Unable to do EGD-family refused to give consent. Patient is moving all 4 extremities, opens eyes to noxious stimuli did not follow commands. HIDA scan pending today Objective Vital Signs Date Time Temp Pulse Resp B/P (MAP) Pulse Ox O2 Delivery O2 Flow Rate FiO2 06/28/17 07:32 100 35 06/28/17 06:00 66 06/28/17 04:00 99.0 18 145/92 (109) Intake and Output 06/28/17 06/28/17 06/29/17 08:00 16:00 00:00 Intake Total 300 ml Output Total 1550 ml Balance -1250 ml Result Diagram: 06/28/17 0740 06/28/17 0114 Imaging Last Impressions Lung Scan-VQ Nuclear Medicine 06/24/17 0000 Signed Impressions: Service Date/Time: Saturday, June 24, 2017 12:21 - CONCLUSION: 1. Low probability of pulmonary embolism Jose Richard MD Head Magnetic Resonance Angiography 06/24/17 0000 Signed Impressions: Service Date/Time: Saturday, June 24, 2017 13:37 - CONCLUSION: Negative for major branch vessels obstruction in spite of MRI findings. Rudy Meng MD FACR Chest X-Ray 06/24/17 0000 Signed Impressions: Service Date/Time: Saturday, June 24, 2017 11:39 - CONCLUSION: Support the breast in good position. Increasing bibasilar parenchymal changes. Rudy Meng MD FACR Brain MRI 06/24/17 0000 Signed Impressions: Service Date/Time: Saturday, June 24, 2017 13:37 - CONCLUSION: Findings consistent with acute infarct left sylvian region anteriorly without hemorrhage. Rudy Meng MD FACR Head CT 06/22/17 1225 Signed Impressions: Service Date/Time: Thursday, June 22, 2017 14:22 - CONCLUSION: 1. Acute ischemic infarct involving the left insular cortex Jose Richard MD Carotid Artery Ultrasound 06/22/17 0000 Signed Impressions: Service Date/Time: Thursday, June 22, 2017 15:56 - CONCLUSION: No evidence of flow-limiting carotid stenosis. Christopher Leonardo MD Abdomen Ultrasound 06/22/17 0000 Signed Impressions: Service Date/Time: Thursday, June 22, 2017 16:30 - CONCLUSION: Distended gallbladder with wall thickening and internal debris. Mild calyceal dilatation involving the kidneys bilaterally Christopher Leonardo MD Objective Remarks GENERAL: 62-year-old female, critically ill currently orotracheally intubated SKIN: Warm and dry. No rash. HEAD: Atraumatic. Normocephalic. EYES: Pupils equal and round. No scleral icterus. No injection or drainage. ENT: No nasal bleeding or discharge. Orotracheally intubated NECK: Trachea midline. No JVD. CARDIOVASCULAR: Regular rate and rhythm. S1, S2. No murmur RESPIRATORY: Breath sounds equal bilaterally. Few basilar crackles GASTROINTESTINAL: Abdomen soft, non-tender, nondistended. No bowel sounds are appreciated MUSCULOSKELETAL: Extremities 1+ pitting lower extremity edema. No obvious deformities. NEUROLOGICAL: Opens eyes partially to noxious stimuli Withdraws to pain in bilateral lower extremity. Moves all extremities spontaneously A/P Assessment and Plan Neuro/Psych: Left insular cortex CVA 2.5 cm Chronic benzodiazepine use THC use Hyperammonemia Keep off all sedation, remains encephalopathic. Ammonia 51 / CT head 06/22 revealed 2.5 cm left insular cortex CVA. Carotid Dopplers negative. 2-D echocardiogram revealed EF 40-45%. Right atrial and right ventricular dilatation. Hemoglobin A1c 6.5/lipids revealed low HDL 38. Low-cholesterol 95. Continue on baby aspirin 81 mg daily MRI brain 06/24 revealed left sylvian fissure CVA. MRA brain 06/24 negative for occlusive disease Holding Hmg Co reductase secondary to elevated transaminases. CV: Hypertension Lactic acidosis - resolving Elevated troponin EKG revealed normal sinus rhythm 98. Nonspecific ST-T changes. Cycle troponins. Downward trending at 0.21 2-D echocardiogram revealed EF 45%. RV, RA dilated. The pulmonary arterial pressures are elevated. Cardiology consultation appreciated. Workup once neurological issues have resolved Baby aspirin 81 milligrams daily Currently on free water flushes 200 cc every 4 hours. Start half normal saline at 84 mL per hour for free water replacement and correction of hypernatremia Resp: Acute hypoxemic respiratory failure Pneumonia with Stenotrophomonas [facility] /10/28/39. Ventilator bundle. Bronchodilator therapy with albuterol/ipratropium aerosols every 6 hours with albuterol nebs every 2 hours. Spontaneous breathing trials daily, mental status may not permit extubation Chest x-ray bibasilar airspace disease Levaquin added for stenotrophomonas GI: Upper GI bleed Elevated transaminases Elevated ammonia Hypoalbuminemia Hepatitis C antibody positive Nepro goal 40 cc an hour-on hold. Nothing by mouth, IV Protonix gtt. Hold Docusate sodium/senna one tablet twice a day for bowel regimen On lactulose 30 cc 4 times a day. Ammonia 51. Hep C genotype/viral load pending HIDA scan 06/28 with distended gallbladder GI following-Endoscopy planned for 06/28-but unable to get consent : History of incontinence Persaud catheter placed for accurate I's and O's in a critically ill patient Endo: Hyperglycemia Low TSH. Normal T4 1.17 Sliding-scale insulin with Accu-Cheks to maintain euglycemia/every 6 hours Renal: Acute kidney injury Possible secondary to dehydration rhabdo. Start half normal saline at 84 mL per hour for free water replacement and correction of hypernatremia Urine electrolytes/eosinophils negative Renal ultrasound revealed dilated bilateral calyces. Possibly will need urology evaluation when stabilizes Accurate I's and O's. Creatinine this a.m. 1.3 Heme: Thrombocytopenia Monitor CBC daily. Follow trends ID: Stenotrophomonas pneumonia Levaquin 750 mg IV every 24 hours Day 2 Piperacillin/tazobactam day 6. DC Vancomycin day #3 Pertinent cultures 06/25 - sputum - stenotrophomonas / - blood cultures 2 -no growth 06/22 - UA - gram positive mixed organisms. UA 9/2 negative 06/22 - blood cultures 2 - no growth Influenza negative Unable to give acetaminophen secondary to elevated transaminases did unable to give NSAIDs secondary to elevated creatinine FEN: Hypernatremia Hypophosphatemia Potassium phosphorus 30 mmol IV 1. Replace electrolytes as clinically indicated. On free water 200 cc every 4 hours A.m. laboratories 06/26 pending Start half normal saline at 84 mL per hour for free water replacement and correction of hypernatremia MSK: PT/OT evaluate and treat Access - Utilize peripheral IV. Central line if indicated Prophylaxis - GI - famotidine - DVT - SCD/heparin subcutaneous CCT 35. Michael White MD Jun 28, 2017 10:35
--- NOTE | 2017-06-28 12:03 | RADRPT ---
EXAM DATE/TIME: 06/28/2017 10:17 [place] COMPARISON: US ABDOMEN - COMPLETE, June 22, 2017, 16:30. INDICATIONS : Abdominal pain, elevated LFT and distended gallbladder. DOSE: 4.1 mCi Tc99m Mebrofenin IV MEDICAL HISTORY : Chronic obstructive pulmonary disease. Smoker. SURGICAL HISTORY : Hysterectomy. ENCOUNTER: Initial ACUITY: 4 - 6 days PAIN SCALE: 2/10 LOCATION: Right upper quadrant TECHNIQUE: Following the intravenous administration of radiotracer, dynamic sequential images were performed wit h continuous acquisition. FINDINGS: HEPATIC KINETICS: There is prompt uptake of radiotracer in the liver. No focal defects are seen. There is normal rate of washout from the hepatic parenchyma. BILIARY CLEARANCE: Activity is first seen in the extrahepatic biliary system at 15 minutes. There is normal excretion i nto the small bowel. GALLBLADDER: Activity is first seen in the gallbladder at 17 minutes. It appears distended, similar to that seen on the ultrasound. Common bile duct kinetics are normal and there is no evidence of biliary obstructi on. BILIARY ENTRIC REFLUX: None observed. CONCLUSION: Nonspecific persistent distention of the gallbladder. No evidence of acute cholecystitis or biliary o bstruction. Christopher Gutierrez MD on June 28, 2017 at 11:59 Board Certified Radiologist. This report was verified electronically.
[2017-06-28] MEDS ORDERED: 1/2 NS + KCL 20 MEQ INJ 1,000 ML IV SCH ×2 (13:00)
[2017-06-28] MEDS: LEVOFLOXACIN 750 MG PREMIX INJ 150 ML IV SCH ×2 (13:21)
[2017-06-28] MEDS: RESP: ALBUTEROL 2.5 MG/3 ML NEB (PRN) INH ×2 (15:52)
--- NOTE | 2017-06-28 19:59 | HHI.PR ---
Review/Management Diagnosis Left hemisphere cva. 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 Diagnosis/Plan: Subjective Subjective Comments No acute events reported Active Medications Current Medications Medications (Trade) Dose Ordered Sig/Rosanna Route Start Time Stop Time Status Last Admin (NS Flush) 2 ml UNSCH PRN IV FLUSH 06/22/17 15:15 (NS Flush) 2 ml BID IV FLUSH 06/22/17 21:00 06/28/17 08:00 (Ativan Inj) 1 mg Q1H PRN IV 06/22/17 15:15 (Tears Naturale Opth Soln) 1 drop TID EACH EYE 06/22/17 18:00 06/28/17 17:12 (Zofran Inj) 4 mg Q6H PRN IV 06/22/17 15:15 (Albuterol Neb) 2.5 mg Q2HR NEB PRN INH 06/22/17 15:15 06/28/17 15:52 (Heparin Inj) 5,000 units Q12H SQ 06/22/17 15:15 Future Hold 06/26/17 15:00 Miscellaneous Information 1 Q361D XX 06/22/17 15:15 06/22/17 15:15 (Chlorhexidine 2% Cloth) Taper DAILY@04 TOP 06/23/17 04:00 06/19/18 03:59 06/28/17 04:00 (Chlorhexidine 2% Cloth) 3 pack UNSCH PRN TOP 06/22/17 15:15 (Indy-Colace) 1 tab BID PO 06/22/17 21:00 06/27/17 20:02 (Milk Of Magnesia Liq) 30 ml Q12H PRN PO 06/22/17 15:15 (Senokot) 17.2 mg Q12H PRN PO 06/22/17 15:15 (Dulcolax Supp) 10 mg DAILY PRN RECTAL 06/22/17 15:15 (Lactulose Liq) 30 ml DAILY PRN PO 06/22/17 15:15 (Peridex 0.12% Liq) 15 ml BID@08,20 MT 06/22/17 20:00 06/28/17 08:01 (Trandate Inj) 10 mg Q2H PRN IV 06/22/17 15:45 Nicardipine HCl 25 mg/Sodium Chloride 260 ml @ 52 mls/hr TITRATE PRN IV 06/22/17 16:00 Future Hold (Aspirin Chew) 81 mg DAILY PO 06/23/17 09:00 Future Hold 06/26/17 10:13 (D50w (Vial) Inj) 50 ml UNSCH PRN IV PUSH 06/22/17 15:45 (Glucagon Inj) 1 mg UNSCH PRN OTHER 06/22/17 15:45 Piperacillin Sod/ Tazobactam Sod 50 ml @ 100 mls/hr Q6H IV 06/22/17 17:00 06/28/17 17:00 (Lactulose Liq) 30 ml QID PO 06/22/17 18:00 06/28/17 08:00 Propofol 100 ml @ 1.65 mls/hr TITRATE PRN IV 06/22/17 17:15 06/28/17 05:59 (NovoLOG SUPPLEMENTAL SCALE) 1 Q6HR SQ 06/23/17 12:00 06/24/17 23:59 (Free Water) VOLUME: 200 ML Q4HR G-TUBE 06/24/17 12:00 06/28/17 04:57 (Lopressor) 12.5 mg Q12HR PO 06/24/17 21:00 06/27/17 20:02 (Pill Splitter) 1 ea UNSCH PRN OTHER 06/24/17 15:00 Levofloxacin/ Dextrose 150 ml @ 100 mls/hr Q24H IV 06/27/17 14:00 06/28/17 13:21 Pantoprazole Sodium 80 mg/ Sodium Chloride 100 ml @ 10 mls/hr Q10H IV 06/27/17 16:00 06/28/17 13:22 Potassium Chloride 100 ml @ 50 mls/hr Q2H PRN IV 06/28/17 03:30 Potassium Chloride 100 ml @ 50 mls/hr Q2H PRN IV 06/28/17 03:30 (K-Lyte Cl Eff) 50 meq UNSCH PRN PO 06/28/17 03:30 Potassium Chloride 100 ml @ 25 mls/hr UNSCH PRN IV 06/28/17 03:30 Potassium Chloride 100 ml @ 50 mls/hr Q2H PRN IV 06/28/17 03:30 06/28/17 07:10 Magnesium Sulfate 4 gm/Sodium Chloride 100 ml @ 50 mls/hr UNSCH PRN IV 06/28/17 03:30 (Mag-Ox) 800 mg UNSCH PRN PO 06/28/17 03:30 Magnesium Sulfate 2 gm/Sodium Chloride 100 ml @ 50 mls/hr UNSCH PRN IV 06/28/17 03:30 (K-Phos) 2,000 mg Q4H PRN PO 06/28/17 03:30 Sodium Phosphate 30 mmol/Sodium Chloride 250 ml @ 42 mls/hr UNSCH PRN IV 06/28/17 03:30 (K-Phos) 2,000 mg UNSCH PRN PO/TUBE 06/28/17 03:30 Potassium Phosphate 30 mmol/ Sodium Chloride 260 ml @ 42 mls/hr UNSCH PRN IV 06/28/17 03:30 (Prinivil) 10 mg DAILY OG-TUBE 06/28/17 10:00 Future Hold Potassium Chloride/Sodium Chloride 1,000 ml @ 84 mls/hr [id number] IV 06/28/17 13:00 06/28/17 13:22 Allergies Allergies Coded Allergies No Known Allergies (Verified06/22/17) Exam I&O / VS 06/28/17 06/28/17 06/29/17 15:00 23:00 07:00 Intake Total 200 ml 180 ml Output Total 975 ml Balance 200 ml -795 ml IV Total 200 ml 180 ml Output Urine Total 775 ml Stool Total 200 ml # Bowel Movements 3 Vital Signs Date Time Temp Pulse Resp B/P (MAP) Pulse Ox O2 Delivery O2 Flow Rate FiO2 06/28/17 18:00 76 06/28/17 17:00 83 06/28/17 16:00 100 06/28/17 16:00 100.4 100 33 172/97 (122) 98 06/28/17 15:15 98 Nasal Cannula 4 06/28/17 15:00 99.9 77 27 166/95 (118) 99 06/28/17 14:26 100 35 06/28/17 14:00 67 06/28/17 14:00 99.7 67 20 155/92 (113) 99 06/28/17 13:00 99.7 69 21 143/85 (104) 100 06/28/17 12:36 98 35 06/28/17 12:35 35 06/28/17 12:00 61 06/28/17 12:00 99.7 61 18 153/88 (109) 100 06/28/17 12:00 35 06/28/17 11:00 99.9 58 18 143/85 (104) 100 06/28/17 10:00 99.9 69 18 100 06/28/17 10:00 60 06/28/17 09:30 60 06/28/17 09:00 60 06/28/17 09:00 99.8 60 18 129/80 (96) 98 06/28/17 08:30 63 06/28/17 08:00 63 06/28/17 08:00 35 06/28/17 08:00 99.5 63 18 156/89 (111) 100 06/28/17 07:32 100 35 06/28/17 07:30 65 06/28/17 07:00 67 06/28/17 07:00 99.5 67 18 163/100 (121) 100 06/28/17 06:00 66 06/28/17 04:00 63 06/28/17 04:00 35 06/28/17 04:00 99.0 63 18 145/92 (109) 99 06/28/17 03:30 100 35 06/28/17 02:00 56 06/28/17 00:00 35 06/28/17 00:00 64 06/28/17 00:00 99.8 64 18 145/88 (107) 98 06/27/17 23:30 100 35 06/27/17 22:17 99 35 06/27/17 22:00 57 06/27/17 20:00 99.9 68 17 159/96 (117) 100 06/27/17 20:00 68 06/27/17 20:00 35 Exam Comments extubated. appears to have an expressive aphasia PERRL, EOM intact, right upper motor neuron CN 7 palsey MOTOR--weaker on RUE than LUE Objective Micro and Labs Laboratory Tests Test 06/28/17 01:14 06/28/17 07:40 06/28/17 12:25 White Blood Count 8.9 Red Blood Count 4.02 Hemoglobin 12.4 13.1 Hematocrit 38.8 40.5 Mean Corpuscular Volume 96.5 Mean Corpuscular Hemoglobin 30.8 Mean Corpuscular Hemoglobin Concent 31.9 Red Cell Distribution Width 13.6 Platelet Count 135 Mean Platelet Volume 10.1 Neutrophils (%) (Auto) 72.2 Lymphocytes (%) (Auto) 13.9 Monocytes (%) (Auto) 11.4 Eosinophils (%) (Auto) 2.4 Basophils (%) (Auto) 0.1 Neutrophils # (Auto) 6.5 Lymphocytes # (Auto) 1.2 Monocytes # (Auto) 1.0 Eosinophils # (Auto) 0.2 Basophils # (Auto) 0.0 CBC Comment DIFF FINAL Differential Comment Blood Urea Nitrogen 33 Creatinine 1.32 Random Glucose 109 Total Protein 6.0 Albumin 2.0 Calcium Level 8.0 Magnesium Level 2.5 Alkaline Phosphatase 67 Aspartate Amino Transf (AST/SGOT) 51 Alanine Aminotransferase (ALT/SGPT) 650 Total Bilirubin 0.6 Sodium Level 149 Potassium Level 3.4 Chloride Level 113 Carbon Dioxide Level 32.1 Anion Gap 4 Estimat Glomerular Filtration Rate 41 Phosphorus Level 2.8 Ammonia 48 Date/Time Source Procedure Growth Status 06/25/17 01:40 Blood Peripheral Aerobic Blood Culture - Preliminary NO GROWTH IN 3 DAYS Resulted 06/25/17 01:40 Blood Peripheral Anaerobic Blood Culture - Preliminary NO GROWTH IN 3 DAYS Resulted 06/25/17 10:00 Sputum Endotracheal Gram Stain - Final Complete 06/25/17 10:00 Sputum Culture - Final Stenotrophomonas Maltophilia Complete 06/22/17 13:30 Urine Catheterized Urine Urine Culture - Final 10-50,000 CFU/ML MIXED GRAM POSITIVE ... Complete Vadim Barr PhD Jun 28, 2017 19:59
[2017-06-28] MEDS ORDERED: DEXAMETHASONE SOD PHOS 4 MG/ML VIAL IV ONE ×2 (21:15)
--- NOTE | 2017-06-28 22:22 | HHI.GIFU ---
Subjective Remarks No further problem with GI bleed. Hct is stable. Pt had blood in stool and blood aspirated from [place]. she is gradually improving. Will not do EGD at this time unless evidence of major GI bleed. PPI should be given. Family will not give consent for her. Objective Vitals I&O Vital Signs Date Time Temp Pulse Resp B/P (MAP) Pulse Ox O2 Delivery O2 Flow Rate FiO2 06/28/17 19:25 99 Nasal Cannula 3.00 06/28/17 18:00 76 06/28/17 17:00 83 06/28/17 16:00 100 06/28/17 16:00 100.4 100 33 172/97 (122) 98 06/28/17 15:15 98 Nasal Cannula 4 06/28/17 15:00 99.9 77 27 166/95 (118) 99 06/28/17 14:26 100 35 06/28/17 14:00 67 06/28/17 14:00 99.7 67 20 155/92 (113) 99 06/28/17 13:00 99.7 69 21 143/85 (104) 100 06/28/17 12:36 98 35 06/28/17 12:35 35 06/28/17 12:00 61 06/28/17 12:00 99.7 61 18 153/88 (109) 100 06/28/17 12:00 35 06/28/17 11:00 99.9 58 18 143/85 (104) 100 06/28/17 10:00 99.9 69 18 100 06/28/17 10:00 60 06/28/17 09:30 60 06/28/17 09:00 60 06/28/17 09:00 99.8 60 18 129/80 (96) 98 06/28/17 08:30 63 06/28/17 08:00 63 06/28/17 08:00 35 06/28/17 08:00 99.5 63 18 156/89 (111) 100 06/28/17 07:32 100 35 06/28/17 07:30 65 06/28/17 07:00 67 06/28/17 07:00 99.5 67 18 163/100 (121) 100 06/28/17 06:00 66 06/28/17 04:00 63 06/28/17 04:00 35 06/28/17 04:00 99.0 63 18 145/92 (109) 99 06/28/17 03:30 100 35 06/28/17 02:00 56 06/28/17 00:00 35 06/28/17 00:00 64 06/28/17 00:00 99.8 64 18 145/88 (107) 98 06/27/17 23:30 100 35 I/O 06/27/17 06/27/17 06/27/17 06/28/17 06/28/17 06/28/17 07:00 15:00 23:00 07:00 15:00 23:00 Intake Total 287 ml 300 ml 150 ml 300 ml 200 ml 180 ml Output Total 800 ml 1550 ml 975 ml Balance -513 ml 300 ml 150 ml -1250 ml 200 ml -795 ml Intake Oral 0 ml IV Total 300 ml 150 ml 300 ml 200 ml 180 ml Tube Feeding 287 ml Output Urine Total 800 ml 650 ml 775 ml Stool Total 400 ml 200 ml Gastric Drainage Total 500 ml # Bowel Movements 5 3 Laboratory Laboratory Tests Test 06/28/17 01:14 06/28/17 07:40 06/28/17 12:25 White Blood Count 8.9 Red Blood Count 4.02 Hemoglobin 12.4 13.1 Hematocrit 38.8 40.5 Mean Corpuscular Volume 96.5 Mean Corpuscular Hemoglobin 30.8 Mean Corpuscular Hemoglobin Concent 31.9 Red Cell Distribution Width 13.6 Platelet Count 135 Mean Platelet Volume 10.1 Neutrophils (%) (Auto) 72.2 Lymphocytes (%) (Auto) 13.9 Monocytes (%) (Auto) 11.4 Eosinophils (%) (Auto) 2.4 Basophils (%) (Auto) 0.1 Neutrophils # (Auto) 6.5 Lymphocytes # (Auto) 1.2 Monocytes # (Auto) 1.0 Eosinophils # (Auto) 0.2 Basophils # (Auto) 0.0 CBC Comment DIFF FINAL Differential Comment Blood Urea Nitrogen 33 Creatinine 1.32 Random Glucose 109 Total Protein 6.0 Albumin 2.0 Calcium Level 8.0 Magnesium Level 2.5 Alkaline Phosphatase 67 Aspartate Amino Transf (AST/SGOT) 51 Alanine Aminotransferase (ALT/SGPT) 650 Total Bilirubin 0.6 Sodium Level 149 Potassium Level 3.4 Chloride Level 113 Carbon Dioxide Level 32.1 Anion Gap 4 Estimat Glomerular Filtration Rate 41 Phosphorus Level 2.8 Ammonia 48 Date/Time Source Procedure Growth Status 06/25/17 01:40 Blood Peripheral Aerobic Blood Culture - Preliminary NO GROWTH IN 3 DAYS Resulted 06/25/17 01:40 Blood Peripheral Anaerobic Blood Culture - Preliminary NO GROWTH IN 3 DAYS Resulted 06/25/17 10:00 Sputum Endotracheal Gram Stain - Final Complete 06/25/17 10:00 Sputum Culture - Final Stenotrophomonas Maltophilia Complete 06/22/17 13:30 Urine Catheterized Urine Urine Culture - Final 10-50,000 CFU/ML MIXED GRAM POSITIVE ... Complete Physical Exam HEENT: Pupils round and reactive to light; normocephalic; atraumatic; no jaundice. Throat is clear. NECK: Neck is supple, no JVD, no lymphadenopathy. CHEST: Chest is clear to auscultation and percussion. CARDIAC: Regular rate and rhythm with no murmur gallop or rubs. ABDOMEN: Soft, nondistended, nontender; no hepatosplenomegaly; bowel sounds are present in all four quadrants. EXTREMITIES: No clubbing, cyanosis, or edema. SKIN: Normal; no rash; no jaundice. STRENGTH AND CONDITIONING COACH: No focal deficits; alert and oriented times three. Assessment and Plan Plan ASSESSMENT: GIB, blood noted in both [place] and [place] last night. Aspirin and SubQ Heparin have been placed on hold. HH stable, 13.6/42.3, most recent labs pending. Vitals stable. Distended gallbladder, Abdominal US 06/22/17--CONCLUSION: Distended gallbladder with wall thickening and internal debris. Mild calyceal dilatation involving the kidneys bilaterally. HIDA Scan ordered for this AM. Ammonia elevated, 62 (9/2). On Lactulose Hepatitis C reactive, Hep C genotype/viral load pending. AST 82, ALT 94. PLAN: - Consider EGD, will hold off on this for now - Notify GI if active bleeding. - Monitor HH, transfuse as necessary - Continue PPI - Await Hep C Genotype/Viral Load - HIDA scan ordered for distended gallbladder, await results - Continue Lactulose for elevated ammonia level - Further recommendations to follow based on results of above. Jose Whitmore MD Jun 28, 2017 22:22
[2017-06-29] VITALS (14 sets, daily range): BP systolic 147–184; BP diastolic 85–100; PULSE 59–83; RESP 22–30; TEMP 97.3–100.7; O2SAT 90–100
[2017-06-29] MEDS: FREE WATER G-TUBE SCH ×14 (04:00→23:14)
[2017-06-29] MEDS: CHLORHEXIDINE GLUCONATE 2 % 1 PACK (2 CLOTHS) TOP SCH ×2 (04:00)
[2017-06-29] MEDS: DEXAMETHASONE SOD PHOS 4 MG/ML VIAL IV SCH ×8 (04:24→22:44)
[2017-06-29] MEDS: INSULIN ASPART SUPPLEMENTAL SCALE SQ SCH ×10 (05:17→23:19)
[2017-06-29] MEDS: PIPERACIL-TAZO 2.25 GM PREMIX 50 ML IV SCH ×2 (05:17)
--- NOTE | 2017-06-29 07:32 | HHI.CCPN ---
Subjective Remarks/Hospital Course [facility] PN/TRANSFER SUMMARY: This is a 62-year-old female. Date of admission 06/22/2017. Past medical history includes COPD, depression and ongoing tobaccoism. She chronically uses alprazolam. 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 She presents to [facility] with a history of since Tuesday he's been unable to get her out of the chair. EMS said the patient had urinated on herself. She was poorly responsive and had 1 mm pinpoint pupils. They administered 0.4 of Narcan at which point she moved all of her extremities but didn't vocalize anything intelligible. She was emergently intubated using succinylcholine and etomidate. Included CT the brain which revealed 2.5 cm left insular cortex CVA, patient was noted be in acute kidney injury with a creatinine of 3.8. Lactic acid 2.7. Elevated transaminases/pneumonia and elevated troponin of 2.2. EKG showed normal sinus rhythm with nonspecific ST-T changes. UA revealed cystitis. Urine toxicology screen positive for benzodiazepine and THC. 06/23: Eyes open to voice/stimulation this AM. Withdrawals left upper, lower along with right lower extremity. No withdrawal right upper extremity. Pupils are reactive. Positive gag. Afebrile. Hemodynamically stable. MRI today after clearance from radiology. Troponin downtrending 06/24: Tmax 101.7. Currently 99.9. +2 L. opens eyes to voice. One bowel movement. Tolerating tube feeds. Sedation vacation today. Withdrawing to extremities. 06/25: Tmax 102. Opens eyes to voice. Withdraws to left upper lobe extremity and right lower extremity. Currently on minimal propofol 3 mg/kg per minute. No obvious peripheral upper or lower extremity edema. Possible infiltrate on chest x-ray. White Blood cell count normal. 06/26: Tmax 100.7. Currently 100. Opens eyes to voice. Withdrawals left upper , left lower and right lower extremity. Tolerating tube feeds at 40 cc an hour. Positive BM. 06/27: Developed upper and lower GIB overnight. Gastroenterology following, EGD in a.m. unless hemodynamically unstable. Hemoglobin remained stable. Patient remains encephalopathic despite sedation hold. Sputum culture growing stenotrophomonas-Levaquin added 06/28: Hb stable, Creat slightly increased. Na 149. Start 1/2 NS with KCL. Unable to do EGD-family refused to give consent. Patient is moving all 4 extremities, opens eyes to noxious stimuli did not follow commands. HIDA scan pending today 06/29: Extubated yesterday, tolerating well sitting up in the bed. Had some postextubation stridor placed on Decadron, now resolved. Postextubation aphasic most likely from the stroke. Chemistry pending at this time. No further GI bleed Objective Vital Signs Date Time Temp Pulse Resp B/P (MAP) Pulse Ox O2 Delivery O2 Flow Rate FiO2 06/29/17 02:00 65 06/29/17 00:00 100.6 30 184/88 (120) 98 06/28/17 19:25 Nasal Cannula 3.00 06/28/17 14:26 35 Result Diagram: 06/28/17 0740 06/28/17 0114 Imaging Last Impressions Lung Scan-VQ Nuclear Medicine 06/24/17 0000 Signed Impressions: Service Date/Time: Saturday, June 24, 2017 12:21 - CONCLUSION: 1. Low probability of pulmonary embolism Jose Richard MD Head Magnetic Resonance Angiography 06/24/17 0000 Signed Impressions: Service Date/Time: Saturday, June 24, 2017 13:37 - CONCLUSION: Negative for major branch vessels obstruction in spite of MRI findings. Rudy Meng MD FACR Chest X-Ray 06/24/17 0000 Signed Impressions: Service Date/Time: Saturday, June 24, 2017 11:39 - CONCLUSION: Support the breast in good position. Increasing bibasilar parenchymal changes. Rudy Meng MD FACR Brain MRI 06/24/17 0000 Signed Impressions: Service Date/Time: Saturday, June 24, 2017 13:37 - CONCLUSION: Findings consistent with acute infarct left sylvian region anteriorly without hemorrhage. Rudy Meng MD FACR Head CT 06/22/17 1225 Signed Impressions: Service Date/Time: Thursday, June 22, 2017 14:22 - CONCLUSION: 1. Acute ischemic infarct involving the left insular cortex Jose Richard MD Carotid Artery Ultrasound 06/22/17 0000 Signed Impressions: Service Date/Time: Thursday, June 22, 2017 15:56 - CONCLUSION: No evidence of flow-limiting carotid stenosis. Christopher Leonardo MD Abdomen Ultrasound 06/22/17 0000 Signed Impressions: Service Date/Time: Thursday, June 22, 2017 16:30 - CONCLUSION: Distended gallbladder with wall thickening and internal debris. Mild calyceal dilatation involving the kidneys bilaterally Christopher Leonardo MD Objective Remarks GENERAL: 62-year-old female, lying in bed no acute distress SKIN: Warm and dry. No rash. HEAD: Atraumatic. Normocephalic. EYES: Pupils equal and round. No scleral icterus. No injection or drainage. ENT: No nasal bleeding or discharge. NECK: Trachea midline. No JVD. CARDIOVASCULAR: Regular rate and rhythm. S1, S2. No murmur RESPIRATORY: Breath sounds equal bilaterally. Few basilar crackles GASTROINTESTINAL: Abdomen soft, non-tender, nondistended. No bowel sounds are appreciated MUSCULOSKELETAL: Extremities 1+ pitting lower extremity edema. No obvious deformities. NEUROLOGICAL: Right facial palsy, expressive aphasia. Follows commands on all 4 extremities, but with right hemiparesis. 4/5 power RUE, 5/5 in all other ext A/P Assessment and Plan Neuro/Psych: Left insular cortex CVA 2.5 cm, with expressive aphasia and right hemiparesis Chronic benzodiazepine use THC use Hyperammonemia CT head 06/22 revealed 2.5 cm left insular cortex CVA. Carotid Dopplers negative. MRI brain 06/24 revealed left sylvian fissure CVA. MRA brain 06/24 negative for occlusive disease Ammonia 48 9/5. Continue lactulose 2-D echocardiogram revealed EF 40-45%. Right atrial and right ventricular dilatation. Hemoglobin A1c 6.5/lipids revealed low HDL 38. Low-cholesterol 95. Continue aspirin daily. Holding Hmg Co reductase secondary to elevated transaminases. Neurology Dr. Barr CV: Lactic acidosis -resolved Elevated troponin Hypertension Troponin downward trending at 0.21 2-D echocardiogram revealed EF 45%. RV, RA dilated. The pulmonary arterial pressures are elevated. Cardiology consultation appreciated. Workup once neurological issues have resolved Continue aspirin daily, change to PO once cleared by speech. Increase metoprolol to 25 every 8 hours. Holding statins due to elevated liver enzyme When necessary IV labetalol and IV hydralazine for SBP more than 160 Continue half normal saline at 84 mL per hour for free water replacement and correction of hypernatremia Resp: Acute hypoxemic respiratory failure-resolved Pneumonia with Stenotrophomonas Mild post extubation stridor Extubated 06/28/17 tolerated well. Mild post extubation stridor appears to have resolved. 5 doses of Decadron ordered Bronchodilator therapy with albuterol/ipratropium aerosols every 6 hours with albuterol nebs every 2 hours. Chest x-ray stable bibasilar airspace disease Levaquin for stenotrophomonas GI: Upper GI bleed Elevated transaminases Elevated ammonia Hypoalbuminemia Hepatitis C antibody positive Protonix gtt changed to 40 mg IV q12. Speech evaluation for aphasia and swallowing eval By mouth diet to cleared by speech and GI Hold Docusate sodium/senna one tablet twice a day for bowel regimen On lactulose 30 cc 4 times a day. Ammonia 48. Hep C genotype/viral load pending HIDA scan 06/28 with distended gallbladder-no evidence of acute cholecystitis GI following-family did not give consent for endoscopy : History of incontinence Persaud catheter placed for accurate I's and O's in a critically ill patient Endo: Hyperglycemia Low TSH. Normal T4 1.17 Sliding-scale insulin with Accu-Cheks to maintain euglycemia/every 6 hours Renal: Acute kidney injury Possible secondary to dehydration rhabdo. Continue half normal saline at 84 mL per hour for free water replacement and correction of hypernatremia Urine electrolytes/eosinophils negative Renal ultrasound revealed dilated bilateral calyces. Possibly will need urology evaluation when stabilizes Accurate I's and O's. Creatinine this a.m. pending Heme: Thrombocytopenia Monitor CBC daily. Follow trends ID: Stenotrophomonas pneumonia Levaquin 750 mg IV every 24 hours Day 3 Piperacillin/tazobactam day 7-DC today. DCd Vancomycin day #3 Pertinent cultures 06/25 - sputum - stenotrophomonas 06/25 - blood cultures 2 -no growth 06/22 - UA - gram positive mixed organisms. UA / negative 06/22 - blood cultures 2 - no growth Influenza negative Unable to give acetaminophen secondary to elevated transaminases did unable to give NSAIDs secondary to elevated creatinine FEN: Hypernatremia Hypophosphatemia Replace electrolytes as clinically indicated. Half normal saline at 84 mL per hour for free water replacement and correction of hypernatremia MSK: PT/OT evaluate and treat Access - Utilize peripheral IV. Central line if indicated Prophylaxis - GI - IV Protonix - DVT - SCD/heparin subcutaneous on hold due to GI bleed. resume today Level 3 Consult hospitalist to assume care in a.m. transfer to [facility] with Tele Michael White MD Jun 29, 2017 07:32
[2017-06-29] MEDS ORDERED: hydrALAZINE HCL 20 MG/ML VIAL IV PUSH PRN ×2 (08:00)
[2017-06-29] MEDS: CHLORHEXIDINE 0.12% (ORAL KIT) 15 ML CUP MT SCH ×4 (08:00→20:00)
[2017-06-29] MEDS: LACTULOSE SYRUP 20 GM/30 ML CUP PO SCH ×8 (09:00→22:42)
[2017-06-29] MEDS: DOCUSATE SODIUM 50 MG/SENNA 8.6 MG TAB PO SCH ×4 (09:00→22:42)
[2017-06-29] MEDS: ARTIFICIAL TEARS OPTH SOLN 15 ML BTL EACH EYE SCH ×6 (09:00→18:00)
[2017-06-29] MEDS: PANTOPRAZOLE SODIUM 40 MG VIAL IV PUSH SCH ×4 (09:20→22:43)
[2017-06-29] MEDS: SODIUM CHLORIDE 0.9% FLUSH 10 ML FLUSH IV FLUSH SCH ×4 (09:20→22:43)
[2017-06-29] MEDS: ASPIRIN 300 MG SUPP RECTAL SCH ×2 (09:20)
[2017-06-29] MEDS ORDERED: PHARMACY ORDERED LAB ONE ×2 (11:45)
[2017-06-29 12:12] LABS: ALKALINE PHOSPHATASE 64 U/L (45-117); TOTAL BILIRUBIN ADULT 0.7 MG/DL (0.2-1.0); TOTAL PROTEIN 6.6 GM/DL (6.4-8.2)
[2017-06-29 12:17] LABS: ALBUMIN 2.4 GM/DL (3.4-5.0); ALT (GPT) 466 U/L (10-53); AST (GOT) 45 U/L (15-37); CALCIUM 8.5 MG/DL (8.5-10.1); CHLORIDE 115 MEQ/L (98-107); CREATININE 1.25 MG/DL (0.50-1.00); GLOMERULAR FILTRATION RATE 44 ML/MIN (>89); GLUCOSE,RANDOM 111 MG/DL (74-106); SODIUM (NA) 150 MEQ/L (136-145)
[2017-06-29 12:18] LABS: BLOOD UREA NITROGEN 31 MG/DL (7-18)
[2017-06-29] MEDS: METOPROLOL TARTRATE 25 MG TAB PO SCH ×4 (14:38→22:42)
[2017-06-29] MEDS: HEPARIN SODIUM - SQ 10,000 UNITS/ML VIAL SQ SCH ×2 (14:38)
[2017-06-29] MEDS: LEVOFLOXACIN 750 MG PREMIX INJ 150 ML IV SCH ×2 (14:40)
[2017-06-29] MEDS: LORazepam 2 MG/ML VIAL IV PRN ×6 (16:25→20:00)
--- NOTE | 2017-06-29 16:31 | HHI.GIFU ---
Subjective Remarks Pt resting in bed, in no apparent distress. Nonverbal. Objective Vitals I&O Vital Signs Date Time Temp Pulse Resp B/P (MAP) Pulse Ox O2 Delivery O2 Flow Rate FiO2 06/29/17 16:00 100.4 71 26 153/87 (109) 95 06/29/17 16:00 71 06/29/17 14:38 100.0 75 28 158/90 (112) 92 06/29/17 14:00 99.7 65 25 93 06/29/17 12:00 100.8 66 26 97 06/29/17 12:00 66 06/29/17 10:06 100.8 67 28 151/85 (107) 97 06/29/17 10:00 100.8 67 26 97 06/29/17 09:00 100.8 65 24 147/100 (116) 95 06/29/17 08:00 100.8 59 23 155/89 (111) 98 06/29/17 07:34 100 Nasal Cannula 3.00 06/29/17 06:00 72 06/29/17 04:00 81 06/29/17 04:00 100.7 67 29 162/85 (110) 98 06/29/17 02:00 65 06/29/17 00:00 68 06/29/17 00:00 100.6 68 30 184/88 (120) 98 06/28/17 22:00 68 06/28/17 20:00 100.4 80 35 149/100 (116) 100 06/28/17 20:00 80 06/28/17 19:25 99 Nasal Cannula 3.00 06/28/17 18:00 76 06/28/17 17:00 83 I/O 06/28/17 06/28/17 06/28/17 06/29/17 06/29/17 06/29/17 07:00 15:00 23:00 07:00 15:00 23:00 Intake Total 300 ml 200 ml 180 ml 311 ml 140 ml Output Total 1550 ml 975 ml 740 ml Balance -1250 ml 200 ml -795 ml -429 ml 140 ml Intake Oral 0 ml IV Total 300 ml 200 ml 180 ml 311 ml 140 ml Output Urine Total 650 ml 775 ml 740 ml Stool Total 400 ml 200 ml Gastric Drainage Total 500 ml # Bowel Movements 3 1 Laboratory Laboratory Tests Test 06/29/17 11:30 Blood Urea Nitrogen 31 Creatinine 1.25 Random Glucose 111 Total Protein 6.6 Albumin 2.4 Calcium Level 8.5 Alkaline Phosphatase 64 Aspartate Amino Transf (AST/SGOT) 45 Alanine Aminotransferase (ALT/SGPT) 466 Total Bilirubin 0.7 Sodium Level 150 Potassium Level 3.7 Chloride Level 115 Carbon Dioxide Level 27.0 Anion Gap 8 Estimat Glomerular Filtration Rate 44 Date/Time Source Procedure Growth Status 06/25/17 01:40 Blood Peripheral Aerobic Blood Culture - Preliminary NO GROWTH IN 4 DAYS Resulted 06/25/17 01:40 Blood Peripheral Anaerobic Blood Culture - Preliminary NO GROWTH IN 4 DAYS Resulted 06/25/17 10:00 Sputum Endotracheal Gram Stain - Final Complete 06/25/17 10:00 Sputum Culture - Final Stenotrophomonas Maltophilia Complete 06/22/17 13:30 Urine Catheterized Urine Urine Culture - Final 10-50,000 CFU/ML MIXED GRAM POSITIVE ... Complete Imaging Last Impressions Hepatobiliary Scan Nuclear Medicine 06/28/17 0900 Signed Impressions: Service Date/Time: Wednesday, June 28, 2017 10:17 - CONCLUSION: Nonspecific persistent distention of the gallbladder. No evidence of acute cholecystitis or biliary obstruction. Christopher Gutierrez MD Chest X-Ray 06/28/17 0600 Signed Impressions: Service Date/Time: Wednesday, June 28, 2017 05:19 - CONCLUSION: 1. No stable elevation of the left hemidiaphragm with stable, left greater then right, bibasilar airspace disease likely reflecting atelectasis. 2. No significant interval change. Gustavo Santoro MD Lung Scan-VQ Nuclear Medicine 06/24/17 0000 Signed Impressions: Service Date/Time: Saturday, June 24, 2017 12:21 - CONCLUSION: 1. Low probability of pulmonary embolism Jose Richard MD Head Magnetic Resonance Angiography 06/24/17 0000 Signed Impressions: Service Date/Time: Saturday, June 24, 2017 13:37 - CONCLUSION: Negative for major branch vessels obstruction in spite of MRI findings. Rudy Meng MD FACR Brain MRI 06/24/17 0000 Signed Impressions: Service Date/Time: Saturday, June 24, 2017 13:37 - CONCLUSION: Findings consistent with acute infarct left sylvian region anteriorly without hemorrhage. Rudy Meng MD FACR Head CT 06/22/17 1225 Signed Impressions: Service Date/Time: Thursday, June 22, 2017 14:22 - CONCLUSION: 1. Acute ischemic infarct involving the left insular cortex Jose Richard MD Carotid Artery Ultrasound 06/22/17 0000 Signed Impressions: Service Date/Time: Tuesday, June 22, 2017 15:56 - CONCLUSION: No evidence of flow-limiting carotid stenosis. Christopher Leonardo MD Abdomen Ultrasound 06/22/17 0000 Signed Impressions: Service Date/Time: Thursday, June 22, 2017 16:30 - CONCLUSION: Distended gallbladder with wall thickening and internal debris. Mild calyceal dilatation involving the kidneys bilaterally Christopher Leonardo MD Physical Exam HEENT: PERRL; normocephalic; atraumatic; no jaundice. NGT CHEST: rhonchi CARDIAC: RRR ABDOMEN: Soft, nondistended, nontender; no hepatosplenomegaly; bowel sounds are present in all four quadrants. EXTREMITIES: No clubbing, cyanosis, or edema. SKIN: Normal; no rash; no jaundice. VALUE ANALYSIS COORDINATOR: alert Assessment and Plan Plan ASSESSMENT: GIB, blood noted in both [place] and [place] last night. Aspirin and SubQ Heparin have been placed on hold. HH stable Vitals stable. Distended gallbladder, Abdominal US 06/22/17--CONCLUSION: Distended gallbladder with wall thickening and internal debris. Mild calyceal dilatation involving the kidneys bilaterally. HIDA neg Ammonia elevated, 62 (9/2). On Lactulose Hepatitis C reactive, Hep C genotype/viral load still pending. LFTs trending down PLAN: - Consider EGD, will hold off on this for now - Notify GI if active bleeding. - Monitor HH, transfuse as necessary - Continue PPI - Await Hep C Genotype/Viral Load - Continue Lactulose for elevated ammonia level - Further recommendations to follow based on results of above. This pt seen by myself and Dr Whitmore and this note is written on his behalf Radha Randle Jun 29, 2017 16:31
[2017-06-30] VITALS (7 sets, daily range): BP systolic 153–183; BP diastolic 89–103; PULSE 71–89; RESP 18–26; TEMP 98.1–99.1; O2SAT 89–100
[2017-06-30] MEDS: DEXAMETHASONE SOD PHOS 4 MG/ML VIAL IV SCH ×2 (02:49)
[2017-06-30] MEDS: LORazepam 2 MG/ML VIAL IV PRN ×4 (02:49→07:50)
[2017-06-30] MEDS: HEPARIN SODIUM - SQ 10,000 UNITS/ML VIAL SQ SCH ×2 (02:55)
[2017-06-30] MEDS: CHLORHEXIDINE GLUCONATE 2 % 1 PACK (2 CLOTHS) TOP SCH ×2 (04:00)
[2017-06-30] MEDS: FREE WATER G-TUBE SCH ×4 (04:00→23:27)
--- NOTE | 2017-06-30 05:01 | RADRPT ---
EXAM DATE/TIME: 06/30/2017 04:18 [facility] COMPARISON: CHEST SINGLE AP, June 28, 2017, 5:19. INDICATIONS : Respiratory disease. MEDICAL HISTORY : Chronic obstructive pulmonary disease. SURGICAL HISTORY : Hysterectomy. ENCOUNTER: Subsequent ACUITY: 1 week PAIN SCORE: Non-responsive. LOCATION: Bilateral chest FINDINGS: Patient has been extubated and NGT removed in the interval. Continued lung hyperexpansion with mild d iffuse interstitial prominence. Bilateral lower lobe airspace disease and volume loss in the left low er lung zone with elevation of left hemidiaphragm. Cardiomegaly some contours are stable. Remainder o f the exam is unchanged. CONCLUSION: 1. Status post extubation with continued bilateral mild lower lobe airspace disease, likely atelectas is. 2. Stable elevation of the left hemidiaphragm. Gustavo Santoro MD on June 30, 2017 at 4:58 Board Certified Radiologist. This report was verified electronically.
[2017-06-30] MEDS: METOPROLOL TARTRATE 25 MG TAB PO SCH ×6 (06:00→21:55)
[2017-06-30] MEDS: INSULIN ASPART SUPPLEMENTAL SCALE SQ SCH ×6 (06:00→23:20)
[2017-06-30 07:23] LABS: BASOPHIL % 0.2 % (0.0-2.0); HEMATOCRIT 41.8 % (35.0-46.0); HEMOGLOBIN 13.5 GM/DL (11.6-15.3); LYMPH % 5.3 % (9.0-44.0); LYMPHOCYTE # 0.7 TH/MM3 (1.0-4.8); MEAN CELL VOLUME 95.6 FL (80.0-100.0); MEAN CORPUSCULAR HGB CONC 32.4 % (32.0-36.0); MEAN PLATELET VOLUME 10.4 FL (7.0-11.0); MONO % 3.6 % (0.0-8.0); MONOCYTE # 0.5 TH/MM3 (0-0.9); NEUT % 90.9 % (16.0-70.0); PLATELET COUNT 204 TH/MM3 (150-450); RED BLOOD COUNT 4.37 MIL/MM3 (4.00-5.30); RED CELL DISTRIBUTION WIDTH 13.4 % (11.6-17.2); WHITE BLOOD COUNT 13.2 TH/MM3 (4.0-11.0)
--- NOTE | 2017-06-30 07:35 | RADRPT ---
EXAM DATE/TIME: 06/30/2017 06:19 [facility] COMPARISON: CHEST SINGLE AP, June 30, 2017, 4:18. INDICATIONS : Post NG tube placement. MEDICAL HISTORY : Chronic obstructive pulmonary disease. SURGICAL HISTORY : Hysterectomy. ENCOUNTER: Initial ACUITY: 1 day PAIN SCORE: Non-responsive. LOCATION: Bilateral chest FINDINGS: Interval placement of suction check nasogastric catheter with tip beyond the GE junction orbit from t he image. A demonstration of bilateral lower lung zone airspace disease and probable small left pleur al effusion. Elevation of the left hemidiaphragm. Cardiomediastinal contours are stable. Remainder of exam is unchanged. CONCLUSION: 1. NGT beyond the GE junction. 2. Stable bilateral lower lobe airspace disease and probable trace left pleural effusion. Gustavo Santoro MD on June 30, 2017 at 7:31 Board Certified Radiologist. This report was verified electronically.
[2017-06-30 07:50] LABS: ALBUMIN 2.5 GM/DL (3.4-5.0); AST (GOT) 42 U/L (15-37); BICARBONATE 26.1 MEQ/L (21.0-32.0); CALCIUM 8.8 MG/DL (8.5-10.1); CHLORIDE 116 MEQ/L (98-107); GLOMERULAR FILTRATION RATE 46 ML/MIN (>89); GLUCOSE,RANDOM 120 MG/DL (74-106); SODIUM (NA) 151 MEQ/L (136-145)
[2017-06-30 07:51] LABS: BLOOD UREA NITROGEN 35 MG/DL (7-18)
[2017-06-30 08:01] LABS: ALKALINE PHOSPHATASE 69 U/L (45-117); ALT (GPT) 394 U/L (10-53); TOTAL BILIRUBIN ADULT 0.6 MG/DL (0.2-1.0); TOTAL PROTEIN 7.1 GM/DL (6.4-8.2)
[2017-06-30] MEDS: ASPIRIN 300 MG SUPP RECTAL SCH ×2 (08:39)
[2017-06-30] MEDS: PANTOPRAZOLE SODIUM 40 MG VIAL IV PUSH SCH ×4 (08:40→22:15)
[2017-06-30] MEDS: ARTIFICIAL TEARS OPTH SOLN 15 ML BTL EACH EYE SCH ×6 (09:00→18:00)
--- NOTE | 2017-06-30 12:31 | HHI.PR ---
Subjective Remarks Notified by RN the patient had some rectal bleeding this morning. On my evaluation. She is alert, can occasionally nod to some questions. She denies shortness of breath but admits to having back pain. Objective Vitals Vital Signs Date Time Temp Pulse Resp B/P (MAP) Pulse Ox O2 Delivery O2 Flow Rate FiO2 06/30/17 12:00 98.6 79 26 161/101 (121) 94 06/30/17 08:40 98.4 81 20 157/91 (113) 89 06/30/17 04:00 98.5 72 20 172/97 (122) 100 06/30/17 00:00 98.5 71 20 176/98 (124) 92 06/29/17 20:00 71 06/29/17 20:00 97.3 83 22 167/94 (118) 90 06/29/17 16:00 100.4 71 26 153/87 (109) 95 06/29/17 16:00 71 06/29/17 14:38 100.0 75 28 158/90 (112) 92 06/29/17 14:00 99.7 65 25 93 I/O 06/29/17 06/29/17 06/29/17 06/30/17 06/30/17 06/30/17 07:00 15:00 23:00 07:00 15:00 23:00 Intake Total 311 ml 140 ml 180 ml Output Total 740 ml 800 ml 325 ml Balance -429 ml 140 ml -620 ml -325 ml IV Total 311 ml 140 ml 120 ml Tube Feeding 60 ml Output Urine Total 740 ml 800 ml 325 ml # Bowel Movements 1 2 Result Diagram: 06/30/17 0652 06/30/17651 Imaging Last Impressions Chest X-Ray 06/30/17 06 Signed Impressions: Service Date/Time: June 04:18 - CONCLUSION: 1. Status post extubation with continued bilateral mild lower lobe airspace disease, likely atelectasis. 2. Stable elevation of the left hemidiaphragm. Gustavo Santoro MD Hepatobiliary Scan Nuclear Medicine 06/28/17 0900 Signed Impressions: Service Date/Time: Wednesday, June 28, 2017 10:17 - CONCLUSION: Nonspecific persistent distention of the gallbladder. No evidence of acute cholecystitis or biliary obstruction. Christopher Gutierrez MD Lung Scan-VQ Nuclear Medicine 06/24/17 0000 Signed Impressions: Service Date/Time: Saturday, June 24, 2017 12:21 - CONCLUSION: 1. Low probability of pulmonary embolism Jose Richard MD Head Magnetic Resonance Angiography 06/24/17 0000 Signed Impressions: Service Date/Time: Saturday, June 24, 2017 13:37 - CONCLUSION: Negative for major branch vessels obstruction in spite of MRI findings. Rudy Meng MD FACR Brain MRI 06/24/17 0000 Signed Impressions: Service Date/Time: Saturday, June 24, 2017 13:37 - CONCLUSION: Findings consistent with acute infarct left sylvian region anteriorly without hemorrhage. Rudy Meng MD FACR Head CT 06/22/17 1225 Signed Impressions: Service Date/Time: Thursday, June 22, 2017 14:22 - CONCLUSION: 1. Acute ischemic infarct involving the left insular cortex Jose Richard MD Carotid Artery Ultrasound 06/22/17 0000 Signed Impressions: Service Date/Time: Thursday, June 22, 2017 15:56 - CONCLUSION: No evidence of flow-limiting carotid stenosis. Christopher Leonardo MD Abdomen Ultrasound 06/22/17 0000 Signed Impressions: Service Date/Time: Thursday, June 22, 2017 16:30 - CONCLUSION: Distended gallbladder with wall thickening and internal debris. Mild calyceal dilatation involving the kidneys bilaterally Christopher Leonardo MD Objective Remarks GENERAL: Chronically ill-appearing female, appearing older than stated age in restraints CARDIOVASCULAR: Normal rate and regular rhythm without murmurs, gallops, or rubs. RESPIRATORY: Some coarse breath sounds bilaterally. Mostly upper airway transmission. Barrel chested. GASTROINTESTINAL: Abdomen soft, non-tender, non-distended. Normal active bowel sounds MUSCULOSKELETAL: Extremities without cyanosis, or edema. NEURO: Alert to self. Aphasic. A/P Problem List: (1) Acute respiratory failure ICD Code: J96.00 - Acute respiratory failure, unspecified whether with hypoxia or hypercapnia (2) Anxiety ICD Code: F41.9 - Anxiety disorder, unspecified (3) COPD (chronic obstructive pulmonary disease) ICD Code: J44.9 - Chronic obstructive pulmonary disease, unspecified (4) Chronically on benzodiazepine therapy ICD Code: Z79.899 - Other arts and crafts instructor (current) drug therapy (5) Low TSH level ICD Code: R94.6 - Abnormal results of thyroid function studies (6) Elevated troponin ICD Code: R74.8 - Abnormal levels of other serum enzymes (7) Elevated CPK ICD Code: R74.8 - Abnormal levels of other serum enzymes (8) Serum ammonia increased ICD Code: E72.20 - Disorder of urea cycle metabolism, unspecified (9) Elevated transaminase level ICD Code: R74.0 - Nonspecific elevation of levels of transaminase and lactic acid dehydrogenase [LDH] (10) Lactic acidosis ICD Code: E87.2 - Acidosis (11) Hyperglycemia ICD Code: R73.9 - Hyperglycemia, unspecified (12) Tobacco abuse ICD Code: Z72.0 - Tobacco use (13) Tetrahydrocannabinol (THC) use disorder, mild, abuse ICD Code: F12.10 - Cannabis abuse, uncomplicated (14) Acute kidney injury ICD Code: N17.9 - Acute kidney failure, unspecified (15) Thrombocytopenia ICD Code: D69.6 - Thrombocytopenia, unspecified (16) Polycythemia ICD Code: D75.1 - Secondary polycythemia (17) CVA (cerebral vascular accident) ICD Code: I63.9 - Cerebral infarction, unspecified (18) Stroke ICD Code: I63.9 - Cerebral infarction, unspecified Status: Acute (19) Incontinence ICD Code: R32 - Unspecified urinary incontinence (20) Cystitis ICD Code: N30.90 - Cystitis, unspecified without hematuria Assessment and Plan 62-year-old female admitted in respiratory failure. Patient was not able to get out of the chair and was intubated by EMS on the scene. Patient was found to have a CVA. She had an ICU course. She is now extubated and transferred to the hospitalist service. 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 Carotid Dopplers negative. MRI brain 06/24 revealed left sylvian fissure CVA. MRA brain 06/24 negative for occlusive disease Hold lactulose today given diarrhea and rectal bleeding. 2-D echocardiogram revealed EF 40-45%. Right atrial and right ventricular dilatation. Hemoglobin A1c 6.5/lipids revealed low HDL 38. Low-cholesterol 95. Hold per rectum aspirin given rectal bleeding. Neurology Dr. Barr Hypertension Cardiomyopathy: - Patient evaluated by cardiology. 2-D echo revealed LVEF of 45%. Cardiomyopathy. Continue beta marilou.PRN antihypertensives. Conservative measures per cardiology given the comorbidities. - IV hydralazine for SBP more than 160 Acute hypoxemic respiratory failure-resolved Pneumonia with Stenotrophomonas Mild post extubation stridor Extubated 06/28/17 tolerated well. Mild post extubation stridor appears to have resolved. 5 doses of Decadron ordered Bronchodilator therapy with albuterol/ipratropium aerosols every 6 hours with albuterol nebs every 2 hours. Chest x-ray stable bibasilar airspace disease Levaquin for stenotrophomonas Upper GI bleed Elevated transaminases Elevated ammonia Hypoalbuminemia Hepatitis C antibody positive Rectal bleeding: Protonix gtt changed to 40 mg IV q12. Speech evaluation for aphasia and swallowing eval By mouth diet to cleared by speech and GI Hold Docusate sodium/senna one tablet twice a day for bowel regimen Hold lactulose Hep C genotype/viral load pending HIDA scan 06/28 with distended gallbladder-no evidence of acute cholecystitis GI following- nursing have advised GI of the rectal bleeding. Patient will be evaluated today. Follow H&H. History of incontinence Persaud catheter placed for accurate I's and O's in a critically ill patient. Not stable enough to discontinue it. Hyperglycemia Low TSH. Normal T4 1.17 Sliding-scale insulin with Accu-Cheks to maintain euglycemia/every 6 hours Acute kidney injury Possible secondary to dehydration rhabdo. Continue hydration with D5 quarter normal saline. Urine electrolytes/eosinophils negative Renal ultrasound revealed dilated bilateral calyces. Possibly will need urology evaluation when stabilizes Accurate I's and O's. Creatinine this a.m. pending Thrombocytopenia Monitor CBC daily. Follow trends Stenotrophomonas pneumonia Levaquin 750 mg IV every 24 hours Day 3 Piperacillin/tazobactam day 7-DC. DCd Vancomycin day #3 Pertinent cultures 06/25 - sputum - stenotrophomonas / - blood cultures 2 -no growth 06/22 - UA - gram positive mixed organisms. UA 9/ negative 06/22 - blood cultures 2 - no growth Influenza negative Unable to give acetaminophen secondary to elevated transaminases did unable to give NSAIDs secondary to elevated creatinine Hypernatremia Hypophosphatemia Replace electrolytes as clinically indicated. PT/OT evaluate and treat Access - Utilize peripheral IV. Prophylaxis - GI - IV Protonix - DVT - SCD/heparin subcutaneous on hold due to GI bleed. resume today Problem Qualifiers (1) COPD (chronic obstructive pulmonary disease): Qualified Codes: J43.9 - Emphysema, unspecified (2) CVA (cerebral vascular accident): Qualified Codes: I63.9 - Cerebral infarction, unspecified (3) Stroke: Qualified Codes: I63.9 - Cerebral infarction, unspecified (4) Incontinence: Qualified Codes: R32 - Unspecified urinary incontinence Trish Vasquez MD Jun 30, 2017 12:31
[2017-06-30] MEDS: HALOPERIDOL LACTATE 5 MG/ML AMP IM PRN ×2 (13:25)
[2017-06-30 13:51] LABS: HCV RNA PCR IU/ML 3470000 IU/mL (0-14)
[2017-06-30] MEDS: DEXTROSE 5%-NACL 0.225% INJ 1,000 ML IV SCH ×4 (14:26→23:43)
[2017-06-30] MEDS: LEVOFLOXACIN 750 MG PREMIX INJ 150 ML IV SCH ×2 (16:00)
[2017-06-30 16:24] LABS: HEMATOCRIT 36.2 % (35.0-46.0); HEMOGLOBIN 11.7 GM/DL (11.6-15.3)
[2017-06-30] MEDS: RESP: ALBUTEROL 2.5 MG/IPRATROPIUM 0.5 MG NEB (SCH) NEB ×4 (16:39→20:07)
--- NOTE | 2017-06-30 17:12 | HHI.GIFU ---
Subjective Remarks Pt resting in bed. No meaningful nonverbal communication. Does not indicate any pain on palpation abd. (Radha Randle) Objective Vitals I&O Vital Signs Date Time Temp Pulse Resp B/P (MAP) Pulse Ox O2 Delivery O2 Flow Rate FiO2 06/30/17 16:39 93 Nasal Cannula 2.00 06/30/17 16:00 99.1 87 26 183/103 (129) 93 06/30/17 12:00 98.6 79 26 161/101 (121) 94 06/30/17 08:40 98.4 81 20 157/91 (113) 89 06/30/17 04:00 98.5 72 20 172/97 (122) 100 06/30/17 00:00 98.5 71 20 176/98 (124) 92 06/29/17 20:00 71 06/29/17 20:00 97.3 83 22 167/94 (118) 90 I/O 06/29/17 06/29/17 06/29/17 06/30/17 06/30/17 06/30/17 07:00 15:00 23:00 07:00 15:00 23:00 Intake Total 311 ml 140 ml 180 ml Output Total 740 ml 800 ml 325 ml 650 ml Balance -429 ml 140 ml -620 ml -325 ml -650 ml IV Total 311 ml 140 ml 120 ml Tube Feeding 60 ml Output Urine Total 740 ml 800 ml 325 ml 650 ml # Bowel Movements 1 2 1 Laboratory Laboratory Tests Test 06/30/17 06:52 06/30/17 15:40 White Blood Count 13.2 Red Blood Count 4.37 Hemoglobin 13.5 11.7 Hematocrit 41.8 36.2 Mean Corpuscular Volume 95.6 Mean Corpuscular Hemoglobin 31.0 Mean Corpuscular Hemoglobin Concent 32.4 Red Cell Distribution Width 13.4 Platelet Count 204 Mean Platelet Volume 10.4 Neutrophils (%) (Auto) 90.9 Lymphocytes (%) (Auto) 5.3 Monocytes (%) (Auto) 3.6 Eosinophils (%) (Auto) 0.0 Basophils (%) (Auto) 0.2 Neutrophils # (Auto) 12.0 Lymphocytes # (Auto) 0.7 Monocytes # (Auto) 0.5 Eosinophils # (Auto) 0.0 Basophils # (Auto) 0.0 CBC Comment DIFF FINAL Differential Comment Blood Urea Nitrogen 35 Creatinine 1.20 Random Glucose 120 Total Protein 7.1 Albumin 2.5 Calcium Level 8.8 Alkaline Phosphatase 69 Aspartate Amino Transf (AST/SGOT) 42 Alanine Aminotransferase (ALT/SGPT) 394 Total Bilirubin 0.6 Sodium Level 151 Potassium Level 4.2 Chloride Level 116 Carbon Dioxide Level 26.1 Anion Gap 9 Estimat Glomerular Filtration Rate 46 Date/Time Source Procedure Growth Status 06/25/17 01:40 Blood Peripheral Aerobic Blood Culture - Final NO GROWTH IN 5 DAYS Complete 06/25/17 01:40 Blood Peripheral Anaerobic Blood Culture - Final NO GROWTH IN 5 DAYS Complete 06/25/17 10:00 Sputum Endotracheal Gram Stain - Final Complete 06/25/17 10:00 Sputum Culture - Final Stenotrophomonas Maltophilia Complete 06/22/17 13:30 Urine Catheterized Urine Urine Culture - Final 10-50,000 CFU/ML MIXED GRAM POSITIVE ... Complete Physical Exam HEENT: PERRL; normocephalic; atraumatic; no jaundice. CHEST: rhonchi CARDIAC: RRR ABDOMEN: Soft, nondistended, nontender; no hepatosplenomegaly; bowel sounds are present in all four quadrants. EXTREMITIES: No clubbing, cyanosis, or edema. SKIN: Normal; no rash; no jaundice. LONGITUDINAL FLOAT OPERATOR: awake (Radha Randle TELEPHONE ORDER SUPERVISOR) Assessment and Plan Plan ASSESSMENT: - GIB, blood noted in both [place] and [place] last night. Aspirin and SubQ Heparin have been placed on hold. HH stable Vitals stable. - dysphagia - has failed 2 swallow evals, NPO per ST. d/w sister Karen and she is agreeable with PEG tube placement, will hold for now until respiratory status improved - Distended gallbladder, Abdominal US 06/22/17--CONCLUSION: Distended gallbladder with wall thickening and internal debris. Mild calyceal dilatation involving the kidneys bilaterally. HIDA neg - Hepatitis C reactive, wuant 3,470,000 Hep C genotyp pending. LFTs trending down - cardiomyopathy per primary - stenotrophomonas PNA - per prmary, on levaquin, zosyn PLAN: - EGD with PEG tube placement when respiratory status improved - NGT for now with TF: TF Nepro w/goal rate of 40 ml/hr - heparin held - Notify GI if active bleeding. - Monitor HH, transfuse as necessary - Continue PPI - Await Hep C Genotype - Continue Lactulose for elevated ammonia level - Further recommendations to follow based on results of above. This pt seen by myself and Dr Robin and this note is written on his behalf (Radha Randle) Plan Patient was seen and examined, agree with above Notes, we will continue tube feeding until we are able to place the PEG tube when respiratory status allow the patient to have this done. Hepatitis workup in progress (Conner Robin MD) Radha Randle Jun 30, 2017 17:12 Conner Robin MD Jun 30, 2017 22:19
[2017-06-30] MEDS: CHLORHEXIDINE 0.12% (ORAL KIT) 15 ML CUP MT SCH ×2 (20:00)
[2017-06-30] MEDS: SODIUM CHLORIDE 0.9% FLUSH 10 ML FLUSH IV FLUSH SCH ×2 (21:00)
[2017-07-01] VITALS (11 sets, daily range): BP systolic 128–159; BP diastolic 76–90; PULSE 85–106; RESP 18–20; TEMP 97.8–99; O2SAT 91–97
[2017-07-01] MEDS: RESP: ALBUTEROL 2.5 MG/IPRATROPIUM 0.5 MG NEB (SCH) NEB ×12 (00:48→19:21)
[2017-07-01] MEDS: CHLORHEXIDINE GLUCONATE 2 % 1 PACK (2 CLOTHS) TOP SCH ×2 (03:24)
[2017-07-01] MEDS: FREE WATER G-TUBE SCH ×10 (03:24→20:00)
[2017-07-01] MEDS: METOPROLOL TARTRATE 25 MG TAB PO SCH ×6 (06:11→21:42)
[2017-07-01] MEDS: INSULIN ASPART SUPPLEMENTAL SCALE SQ SCH ×6 (06:16→18:00)
[2017-07-01] MEDS: CHLORHEXIDINE 0.12% (ORAL KIT) 15 ML CUP MT SCH ×4 (08:00→21:42)
[2017-07-01] MEDS: PANTOPRAZOLE SODIUM 40 MG VIAL IV PUSH SCH ×4 (08:00→21:41)
[2017-07-01] MEDS: DEXTROSE 5%-NACL 0.225% INJ 1,000 ML IV SCH ×2 (09:00)
[2017-07-01] MEDS: SODIUM CHLORIDE 0.9% FLUSH 10 ML FLUSH IV FLUSH SCH ×4 (09:00→21:00)
[2017-07-01] MEDS: ARTIFICIAL TEARS OPTH SOLN 15 ML BTL EACH EYE SCH ×6 (09:00→18:00)
--- NOTE | 2017-07-01 12:01 | HHI.PR ---
Subjective Remarks Patient appear more calm today. She is aphasic but can nod to some questions. Objective Vitals Vital Signs Date Time Temp Pulse Resp B/P (MAP) Pulse Ox O2 Delivery O2 Flow Rate FiO2 07/01/17 11:53 99.0 89 20 143/84 (103) 92 07/01/17 08:59 94 21 07/01/17 08:39 97.8 85 20 128/86 (100) 96 07/01/17 05:42 98 07/01/17 04:00 97.8 99 18 129/76 (93) 97 07/01/17 00:52 91 Nasal Cannula 3.00 07/01/17 00:00 98.0 89 18 143/82 (102) 94 06/30/17 20:00 98.1 89 18 153/89 (110) 92 06/30/17 16:39 93 Nasal Cannula 2.00 06/30/17 16:00 99.1 87 26 183/103 (129) 93 I/O 06/30/17 06/30/17 06/30/17 07/01/17 07/01/17 07/01/17 07:00 15:00 23:00 07:00 15:00 23:00 Intake Total 1913 ml Output Total 325 ml 650 ml 700 ml Balance -325 ml -650 ml 1213 ml IV Total 1913 ml Output Urine Total 325 ml 650 ml 700 ml # Voids 2 # Bowel Movements 1 4 Result Diagram: 06/30/17 1540 06/30/17 0652 Objective Remarks GENERAL: Chronically ill-appearing female, appearing older than stated age in restraints CARDIOVASCULAR: Normal rate and regular rhythm without murmurs, gallops, or rubs. RESPIRATORY: Some coarse breath sounds bilaterally. Mostly upper airway transmission. Barrel chested. GASTROINTESTINAL: Abdomen soft, non-tender, non-distended. Normal active bowel sounds MUSCULOSKELETAL: Extremities without cyanosis, or edema. NEURO: Alert to self. Aphasic. A/P Problem List: (1) Acute respiratory failure ICD Code: J96.00 - Acute respiratory failure, unspecified whether with hypoxia or hypercapnia (2) Anxiety ICD Code: F41.9 - Anxiety disorder, unspecified (3) COPD (chronic obstructive pulmonary disease) ICD Code: J44.9 - Chronic obstructive pulmonary disease, unspecified (4) Chronically on benzodiazepine therapy ICD Code: Z79.899 - Other long term care social worker (current) drug therapy (5) Low TSH level ICD Code: R94.6 - Abnormal results of thyroid function studies (6) Elevated troponin ICD Code: R74.8 - Abnormal levels of other serum enzymes (7) Elevated CPK ICD Code: R74.8 - Abnormal levels of other serum enzymes (8) Serum ammonia increased ICD Code: E72.20 - Disorder of urea cycle metabolism, unspecified (9) Elevated transaminase level ICD Code: R74.0 - Nonspecific elevation of levels of transaminase and lactic acid dehydrogenase [LDH] (10) Lactic acidosis ICD Code: E87.2 - Acidosis (11) Hyperglycemia ICD Code: R73.9 - Hyperglycemia, unspecified (12) Tobacco abuse ICD Code: Z72.0 - Tobacco use (13) Tetrahydrocannabinol (THC) use disorder, mild, abuse ICD Code: F12.10 - Cannabis abuse, uncomplicated (14) Acute kidney injury ICD Code: N17.9 - Acute kidney failure, unspecified (15) Thrombocytopenia ICD Code: D69.6 - Thrombocytopenia, unspecified (16) Polycythemia ICD Code: D75.1 - Secondary polycythemia (17) CVA (cerebral vascular accident) ICD Code: I63.9 - Cerebral infarction, unspecified (18) Stroke ICD Code: I63.9 - Cerebral infarction, unspecified Status: Acute (19) Incontinence ICD Code: R32 - Unspecified urinary incontinence (20) Cystitis ICD Code: N30.90 - Cystitis, unspecified without hematuria Assessment and Plan In summary this is a 62-year-old female admitted in respiratory failure. Patient was not able to get out of the chair and was intubated by EMS on the scene. Patient was found to have a CVA. She had an ICU course. She is now extubated and transferred to the hospitalist service. Patient also has GI bleeding. She is not able to pass a swallow evaluation. She needs a feeding tube per GI. Respiratory status is currently stable. 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 Carotid Dopplers negative. MRI brain 06/24 revealed left sylvian fissure CVA. MRA brain 06/24 negative for occlusive disease Resume lactulose. 2-D echocardiogram revealed EF 40-45%. Right atrial and right ventricular dilatation. Hemoglobin A1c 6.5/lipids revealed low HDL 38. Low-cholesterol 95. Hold per rectum aspirin given rectal bleeding. Transition to t Neurology Dr. Barr Hypertension Cardiomyopathy: - Patient evaluated by cardiology. 2-D echo revealed LVEF of 45%. Cardiomyopathy. Continue beta marilou. PRN antihypertensives. Conservative measures per cardiology given the comorbidities. - IV hydralazine for SBP more than 160 Acute hypoxemic respiratory failure-resolved Pneumonia with Stenotrophomonas Mild post extubation stridor Extubated 06/28/17 tolerated well. Mild post extubation stridor appears to have resolved. 5 doses of Decadron ordered Bronchodilator therapy with albuterol/ipratropium aerosols every 6 hours with albuterol nebs every 2 hours. Chest x-ray stable bibasilar airspace disease Levaquin for stenotrophomonas Upper GI bleed Elevated transaminases Elevated ammonia Hypoalbuminemia Hepatitis C antibody positive Rectal bleeding: Protonix gtt changed to 40 mg IV q12. Patient repeatedly failed swallow evaluation. Hep C genotype/viral load pending HIDA scan 06/28 with distended gallbladder-no evidence of acute cholecystitis GI following- planning for PEG placement. Follow H&H. History of incontinence Persaud catheter placed for accurate I's and O's in a critically ill patient. Not stable enough yet to discontinue it. Acute kidney injury Possible secondary to dehydration rhabdo. Continue hydration with D5 quarter normal saline. Urine electrolytes/eosinophils negative Renal ultrasound revealed dilated bilateral calyces. Possibly will need urology evaluation when stabilizes Accurate I's and O's. Thrombocytopenia Monitor CBC daily. Follow trends Stenotrophomonas pneumonia Levaquin 750 mg IV every 24 hours Piperacillin/tazobactam day 7-DC. DCd Vancomycin day #3 Pertinent cultures 06/25 - sputum - stenotrophomonas 06/25 - blood cultures 2 -no growth 06/22 - UA - gram positive mixed organisms. UA 06/25 negative 06/22 - blood cultures 2 - no growth Influenza negative Unable to give acetaminophen secondary to elevated transaminases did unable to give NSAIDs secondary to elevated creatinine PT/OT evaluate and treat Prophylaxis - GI - IV Protonix - DVT - SCD/heparin subcutaneous on hold due to GI bleed. Problem Qualifiers (1) COPD (chronic obstructive pulmonary disease): Qualified Codes: J43.9 - Emphysema, unspecified (2) CVA (cerebral vascular accident): Qualified Codes: I63.9 - Cerebral infarction, unspecified (3) Stroke: Qualified Codes: I63.9 - Cerebral infarction, unspecified (4) Incontinence: Qualified Codes: R32 - Unspecified urinary incontinence Trish Vasquez MD Jul 01, 2017 12:01
--- NOTE | 2017-07-01 12:04 | RADRPT ---
EXAM DATE/TIME: 07/01/2017 10:45 [facility] COMPARISON: No previous studies available for comparison. INDICATIONS : Nasogastric tube placement. MEDICAL HISTORY : Chronic obstructive pulmonary disease. SURGICAL HISTORY : Hysterectomy. ACUITY: 1 week PAIN SCORE: 0/10 LOCATION: abdomen FINDINGS: Limited exam shows tip of nasogastric tube across the GE junction. Sidehole is not. Minimal consoli dative changes are present left base. CONCLUSION: NG as above. Rudy Meng MD FACR on July 01, 2017 at 12:02 Board Certified Radiologist. This report was verified electronically.
--- NOTE | 2017-07-01 13:06 | HHI.GIFU ---
Subjective Remarks Resting in bed. Confused. No distress. Tolerating tf via ngt. (Selma Fontana) Objective Vitals I&O Vital Signs Date Time Temp Pulse Resp B/P (MAP) Pulse Ox O2 Delivery O2 Flow Rate FiO2 07/01/17 11:53 99.0 89 20 143/84 (103) 92 07/01/17 08:59 94 21 07/01/17 08:39 97.8 85 20 128/86 (100) 96 07/01/17 05:42 98 07/01/17 04:00 97.8 99 18 129/76 (93) 97 07/01/17 00:52 91 Nasal Cannula 3.00 07/01/17 00:00 98.0 89 18 143/82 (102) 94 06/30/17 20:00 98.1 89 18 153/89 (110) 92 06/30/17 16:39 93 Nasal Cannula 2.00 06/30/17 16:00 99.1 87 26 183/103 (129) 93 I/O 06/30/17 06/30/17 06/30/17 07/01/17 07/01/17 07/01/17 07:00 15:00 23:00 07:00 15:00 23:00 Intake Total 1913 ml Output Total 325 ml 650 ml 700 ml Balance -325 ml -650 ml 1213 ml IV Total 1913 ml Output Urine Total 325 ml 650 ml 700 ml # Voids 2 # Bowel Movements 1 4 Laboratory Laboratory Tests Test 06/30/17 15:40 Hemoglobin 11.7 Hematocrit 36.2 Date/Time Source Procedure Growth Status 06/25/17 01:40 Blood Peripheral Aerobic Blood Culture - Final NO GROWTH IN 5 DAYS Complete 06/25/17 01:40 Blood Peripheral Anaerobic Blood Culture - Final NO GROWTH IN 5 DAYS Complete 06/25/17 10:00 Sputum Endotracheal Gram Stain - Final Complete 06/25/17 10:00 Sputum Culture - Final Stenotrophomonas Maltophilia Complete 06/22/17 13:30 Urine Catheterized Urine Urine Culture - Final 10-50,000 CFU/ML MIXED GRAM POSITIVE ... Complete Imaging Last Impressions Abdomen X-Ray 07/01/17 1044 Signed Impressions: Service Date/Time: Saturday, July 01, 2017 10:45 - CONCLUSION: NG as above. Rudy Meng MD FACR Chest X-Ray 06/30/17 0600 Signed Impressions: Service Date/Time: June 04:18 - CONCLUSION: 1. Status post extubation with continued bilateral mild lower lobe airspace disease, likely atelectasis. 2. Stable elevation of the left hemidiaphragm. Gustavo Santoro MD Hepatobiliary Scan Nuclear Medicine 06/28/17 0900 Signed Impressions: Service Date/Time: Wednesday, June 28, 2017 10:17 - CONCLUSION: Nonspecific persistent distention of the gallbladder. No evidence of acute cholecystitis or biliary obstruction. Christopher Gutierrez MD Lung Scan-VQ Nuclear Medicine 06/24/17 0000 Signed Impressions: Service Date/Time: Saturday, June 24, 2017 12:21 - CONCLUSION: 1. Low probability of pulmonary embolism Jose Richard MD Head Magnetic Resonance Angiography 06/24/17 0000 Signed Impressions: Service Date/Time: Saturday, June 24, 2017 13:37 - CONCLUSION: Negative for major branch vessels obstruction in spite of MRI findings. Rudy Meng MD FACR Brain MRI 06/24/17 0000 Signed Impressions: Service Date/Time: Saturday, June 24, 2017 13:37 - CONCLUSION: Findings consistent with acute infarct left sylvian region anteriorly without hemorrhage. Rudy Meng MD FACR Head CT 06/22/17 1225 Signed Impressions: Service Date/Time: Thursday, June 22, 2017 14:22 - CONCLUSION: 1. Acute ischemic infarct involving the left insular cortex Jose Richard MD Carotid Artery Ultrasound 06/22/17 0000 Signed Impressions: Service Date/Time: Thursday, June 22, 2017 15:56 - CONCLUSION: No evidence of flow-limiting carotid stenosis. Christopher Leonardo MD Abdomen Ultrasound 06/22/17 0000 Signed Impressions: Service Date/Time: Thursday, June 22, 2017 16:30 - CONCLUSION: Distended gallbladder with wall thickening and internal debris. Mild calyceal dilatation involving the kidneys bilaterally Christopher Leonardo MD Physical Exam HEENT: Normocephalic; atraumatic; no jaundice. CHEST: Rhonchi CARDIAC: RRR ABDOMEN: Soft, nondistended, nontender; no hepatosplenomegaly; bowel sounds are present in all four quadrants. EXTREMITIES: No clubbing, cyanosis, or edema. SKIN: Normal; no rash; no jaundice. 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 ST following, failed patients. Currently with TF via NGT. Plan is for PEG tube early next week if stable. - GIB, blood noted in both [place] and [place] last night. Aspirin and SubQ Heparin have been placed on hold. Not currently having active bleeding. HH 11.7/36.2. - Confusion, hepatic encephalopathy. Ammonia 48. Lactulose. Xifaxan. - Distended gallbladder, Abdominal US 06/22/17--CONCLUSION: Distended gallbladder with wall thickening and internal debris. Mild calyceal dilatation involving the kidneys bilaterally. HIDA neg - Hepatitis C reactive, wuant 3,470,000 Hep C genotyp 2b. LFTs trending down - Cardiomyopathy per primary - Stenotrophomonas PNA - per attending. PLAN: - EGD with PEG tube placement when respiratory status improved - NGT for now with TF- TF Nepro w/goal rate of 40 ml/hr - Heparin held - Notify GI if active bleeding. - Monitor HH, transfuse as necessary - Continue PPI - Continue Lactulose for elevated ammonia level - Further recommendations to follow based on results of above. - Pt seen and examined by Dr. Robin and myself and this note is written on his behalf (Selma Fontana) Plan Patient seen and examined, I agree with the above note she was laying in bed, she pulled her NG tube out, hemoglobin is stable. Patient will need PEG tube when more stable (Conner Robin MD) Selma Fontana Jul 01, 2017 13:06 Conner Robin MD Jul 01, 2017 21:40
--- NOTE | 2017-07-01 14:30 | RADRPT ---
EXAM DATE/TIME: 07/01/2017 13:19 [facility] COMPARISON: ABDOMEN KUB ONLY, July 01, 2017, 10:45. INDICATIONS : Confirm NG tube placement. MEDICAL HISTORY : Chronic obstructive pulmonary disease. SURGICAL HISTORY : Hysterectomy. ENCOUNTER: Subsequent ACUITY: 1 day PAIN SCORE: Non-responsive. LOCATION: Abdomen. FINDINGS: The bowel gas is nonspecific. There are no signs of obstruction or free air for technique. No defini te calcified stones are identified for technique. NG tube is present with tip in the left lower quadr ant somewhat low to be inside the stomach unless the patient's stomach is distended CONCLUSION: 1. Nonspecific abdomen and the tip of the NG tube is somewhat low in the left lower quadrant could st ill be in the stomach, however the exact location is not certain. 2. Not mentioned above is slight left lung base consolidation and/or partial collapse. Amada Aguirre MD on July 01, 2017 at 14:27 Board Certified Radiologist. This report was verified electronically.
[2017-07-01] MEDS: LEVOFLOXACIN 750 MG PREMIX INJ 150 ML IV SCH ×2 (15:05)
[2017-07-01] MEDS: HALOPERIDOL LACTATE 5 MG/ML AMP IM PRN ×4 (15:07→21:23)
--- NOTE | 2017-07-01 16:53 | RADRPT ---
EXAM DATE/TIME: 07/01/2017 15:47 [facility] COMPARISON: CHEST SINGLE AP, June 30, 2017, 6:19. INDICATIONS : Evaluate for NG tube placement. MEDICAL HISTORY : Chronic obstructive pulmonary disease. SURGICAL HISTORY : None. ENCOUNTER: Subsequent ACUITY: 1 day PAIN SCORE: 0/10 LOCATION: Abdomen FINDINGS: Slight left lung base consolidation is seen. The right lung base has improved in aeration since the p rior exam. The bowel gas is nonspecific without any signs of obstruction or free air. NG tube is pres ent with tip in the stomach. CONCLUSION: Nonspecific bowel gas and slight left lung base consolidation. Amada Aguirre MD on July 01, 2017 at 16:51 Board Certified Radiologist. This report was verified electronically.
--- NOTE | 2017-07-01 21:38 | HHI.PR ---
Review/Management Diagnosis Left hemisphere cva. 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 consider intermediate accountant anticoagulation when stable Diagnosis/Plan: Subjective Subjective Comments No acute events reported Active Medications Current Medications Medications (Trade) Dose Ordered Sig/Rosanna Route Start Time Stop Time Status Last Admin (NS Flush) 2 ml UNSCH PRN IV FLUSH 06/22/17 15:15 (NS Flush) 2 ml BID IV FLUSH 06/22/17 21:00 07/01/17 09:00 (Tears Naturale Opth Soln) 1 drop TID EACH EYE 06/22/17 18:00 07/01/17 18:00 (Zofran Inj) 4 mg Q6H PRN IV 06/22/17 15:15 (Albuterol Neb) 2.5 mg Q2HR NEB PRN INH 06/22/17 15:15 06/28/17 15:52 (Heparin Inj) 5,000 units Q12H SQ 06/22/17 15:15 Future Hold 06/29/17 14:38 Miscellaneous Information 1 Q361D XX 06/22/17 15:15 06/22/17 15:15 (Chlorhexidine 2% Cloth) Taper DAILY@04 TOP 06/23/17 04:00 06/19/18 03:59 06/29/17 04:00 (Chlorhexidine 2% Cloth) 3 pack UNSCH PRN TOP 06/22/17 15:15 (Milk Of Magnesia Liq) 30 ml Q12H PRN PO 06/22/17 15:15 (Senokot) 17.2 mg Q12H PRN PO 06/22/17 15:15 (Dulcolax Supp) 10 mg DAILY PRN RECTAL 06/22/17 15:15 (Lactulose Liq) 30 ml DAILY PRN PO 06/22/17 15:15 (Peridex 0.12% Liq) 15 ml BID@08,20 MT 06/22/17 20:00 07/01/17 08:00 (Trandate Inj) 10 mg Q2H PRN IV 06/22/17 15:45 Nicardipine HCl 25 mg/Sodium Chloride 260 ml @ 52 mls/hr TITRATE PRN IV 06/22/17 16:00 Future Hold (Aspirin Chew) 81 mg DAILY PO 06/23/17 09:00 Future hold 06/26/17 10:13 (D50w (Vial) Inj) 50 ml UNSCH PRN IV PUSH 06/22/17 15:45 (Glucagon Inj) 1 mg UNSCH PRN OTHER 06/22/17 15:45 (NovoLOG SUPPLEMENTAL SCALE) 1 Q6HR SQ 06/23/17 12:00 07/01/17 06:16 (Free Water) VOLUME: 200 ML Q4HR G-TUBE 06/24/17 12:00 07/01/17 03:24 (Pill Splitter) 1 ea UNSCH PRN OTHER 06/24/17 15:00 Levofloxacin/ Dextrose 150 ml @ 100 mls/hr Q24H IV 06/27/17 14:00 07/01/17 15:05 (Prinivil) 10 mg DAILY OG-TUBE 06/28/17 10:00 Future Hold (Protonix Inj) 40 mg Q12H IV PUSH 06/29/17 08:00 07/01/17 08:00 (Lopressor) 25 mg Q8HR PO 06/29/17 14:00 07/01/17 06:11 (Haldol Inj) 5 mg Q6H PRN IM 06/30/17 12:30 07/01/17 21:23 (Duoneb Neb) 1 ampule Q4HR NEB NEB 06/30/17 12:30 07/01/17 19:21 (Morphine Inj) 2 mg Q3H PRN IV PUSH 06/30/17 12:30 (Vasotec Inj) 2.5 mg Q6H PRN IV PUSH 06/30/17 21:00 (Lactulose Liq) 30 ml BID PO 07/01/17 21:00 Allergies Allergies Coded Allergies No Known Allergies (Verified06/22/17) Exam I&O / VS 07/01/17 07/01/17 07/02/17 15:00 23:00 07:00 Output Total 800 ml Balance -800 ml Output Urine Total 800 ml Vital Signs Date Time Temp Pulse Resp B/P (MAP) Pulse Ox O2 Delivery O2 Flow Rate FiO2 07/01/17 16:34 98.3 86 20 159/90 (113) 97 07/01/17 15:43 92 Nasal Cannula 3.00 07/01/17 11:53 99.0 89 20 143/84 (103) 92 07/01/17 08:59 94 21 07/01/17 08:39 97.8 85 20 128/86 (100) 96 07/01/17 05:42 98 07/01/17 04:00 97.8 99 18 129/76 (93) 97 07/01/17 00:52 91 Nasal Cannula 3.00 07/01/17 00:00 98.0 89 18 143/82 (102) 94 Exam Comments minimal spontaneous speech and has diffculty following simple commands PERRL, EOM intact, right upper motor neuron CN 7 palsey MOTOR--weaker on RUE than LUE Objective Micro and Labs Date/Time Source Procedure Growth Status 06/25/17 01:40 Blood Peripheral Aerobic Blood Culture - Final NO GROWTH IN 5 DAYS Complete 06/25/17 01:40 Blood Peripheral Anaerobic Blood Culture - Final NO GROWTH IN 5 DAYS Complete 06/25/17 10:00 Sputum Endotracheal Gram Stain - Final Complete 06/25/17 10:00 Sputum Culture - Final Stenotrophomonas Maltophilia Complete 06/22/17 13:30 Urine Catheterized Urine Urine Culture - Final 10-50,000 CFU/ML MIXED GRAM POSITIVE ... Complete Vadim Barr PhD MD Jul 01, 2017 21:38
[2017-07-01] MEDS: LACTULOSE SYRUP 20 GM/30 ML CUP PO SCH ×2 (21:41)
[2017-07-02] VITALS (8 sets, daily range): BP systolic 120–193; BP diastolic 69–102; PULSE 88–111; RESP 20–34; TEMP 97.6–98.7; O2SAT 90–97
[2017-07-02] MEDS: RESP: ALBUTEROL 2.5 MG/IPRATROPIUM 0.5 MG NEB (SCH) NEB ×12 (00:59→21:34)
[2017-07-02] MEDS: CHLORHEXIDINE GLUCONATE 2 % 1 PACK (2 CLOTHS) TOP SCH ×2 (03:45)
[2017-07-02] MEDS: FREE WATER G-TUBE SCH ×12 (04:00→20:00)
[2017-07-02] MEDS: INSULIN ASPART SUPPLEMENTAL SCALE SQ SCH ×8 (05:01→17:28)
[2017-07-02] MEDS: METOPROLOL TARTRATE 25 MG TAB PO SCH ×6 (05:01→21:31)
[2017-07-02] MEDS: CHLORHEXIDINE 0.12% (ORAL KIT) 15 ML CUP MT SCH ×4 (08:00→20:00)
[2017-07-02] MEDS: SODIUM CHLORIDE 0.9% FLUSH 10 ML FLUSH IV FLUSH SCH ×4 (09:00→21:00)
[2017-07-02] MEDS: PANTOPRAZOLE SODIUM 40 MG VIAL IV PUSH SCH ×4 (09:39→21:30)
[2017-07-02] MEDS: ARTIFICIAL TEARS OPTH SOLN 15 ML BTL EACH EYE SCH ×6 (09:39→17:18)
[2017-07-02] MEDS: LACTULOSE SYRUP 20 GM/30 ML CUP PO SCH ×4 (09:40→21:38)
[2017-07-02] MEDS: ASPIRIN 81 MG CHEW TAB PO SCH ×2 (09:40)
[2017-07-02 11:20] LABS: HEMATOCRIT 28.6 % (35.0-46.0); HEMOGLOBIN 9.2 GM/DL (11.6-15.3); MEAN CELL VOLUME 93.2 FL (80.0-100.0); MEAN CORPUSCULAR HEMOGLOBIN 30.1 PG (27.0-34.0); MEAN CORPUSCULAR HGB CONC 32.3 % (32.0-36.0); MEAN PLATELET VOLUME 9.6 FL (7.0-11.0); PLATELET COUNT 251 TH/MM3 (150-450); RED BLOOD COUNT 3.07 MIL/MM3 (4.00-5.30); RED CELL DISTRIBUTION WIDTH 13.2 % (11.6-17.2)
[2017-07-02 11:53] LABS: BICARBONATE 26.6 MEQ/L (21.0-32.0); CALCIUM 8.3 MG/DL (8.5-10.1); CREATININE 1.03 MG/DL (0.50-1.00)
[2017-07-02] MEDS: LEVOFLOXACIN 750 MG PREMIX INJ 150 ML IV SCH ×2 (13:17)
[2017-07-02] MEDS ORDERED: MAGNESIUM OXIDE 400 MG TAB PO ONE ×2 (16:15)
--- NOTE | 2017-07-02 16:16 | HHI.PR ---
Subjective Remarks With low K , replaced. Nods to some questions. Complaints of some back pain. No new motor deficit. Less agitated. Says she feels improving some. No n/v/d/c. Discussed with the nurse. Patient at baseline no much change since yesterday. Objective Vitals Vital Signs Date Time Temp Pulse Resp B/P (MAP) Pulse Ox O2 Delivery O2 Flow Rate FiO2 07/02/17 11:47 98.7 97 26 128/90 (103) 94 07/02/17 09:28 Nasal Cannula 2.00 07/02/17 08:30 88 28 161/91 (114) 97 07/02/17 08:00 98.4 111 34 193/102 (132) 90 07/02/17 04:00 98.6 101 20 140/83 (102) 94 07/02/17 03:45 Nasal Cannula 2.00 07/02/17 00:00 97.6 107 20 120/69 (86) 92 07/01/17 21:52 85 07/01/17 20:00 98.6 106 18 134/81 (98) 97 07/01/17 16:34 98.3 86 20 159/90 (113) 97 I/O 07/01/17 07/01/17 07/01/17 07/02/17 07/02/17 07/02/17 07:00 15:00 23:00 07:00 15:00 23:00 Intake Total 1913 ml 200 ml Output Total 700 ml 800.0 ml 800 ml 0 ml Balance 1213 ml -800.0 ml -800 ml 200 ml IV Total 1913 ml Other 200 ml Output Urine Total 700 ml 800 ml 800 ml Tube Feeding Residual Discard 0 ml 0 ml # Voids 2 # Bowel Movements 4 2 Result Diagram: 07/02/17 1027 07/02/17 1027 Imaging Last Impressions Abdomen X-Ray 07/01/17 1044 Signed Impressions: Service Date/Time: Saturday, July 01, 2017 10:45 - CONCLUSION: NG as above. Rudy Meng MD FACR Chest X-Ray 06/30/17 0600 Signed Impressions: Service Date/Time: June 04:18 - CONCLUSION: 1. Status post extubation with continued bilateral mild lower lobe airspace disease, likely atelectasis. 2. Stable elevation of the left hemidiaphragm. Gustavo Santoro MD Hepatobiliary Scan Nuclear Medicine 06/28/17 0900 Signed Impressions: Service Date/Time: Wednesday, June 28, 2017 10:17 - CONCLUSION: Nonspecific persistent distention of the gallbladder. No evidence of acute cholecystitis or biliary obstruction. Christopher Gutierrez MD Lung Scan-VQ Nuclear Medicine 06/24/17 0000 Signed Impressions: Service Date/Time: Saturday, June 24, 2017 12:21 - CONCLUSION: 1. Low probability of pulmonary embolism Jose Richard MD Head Magnetic Resonance Angiography 06/24/17 0000 Signed Impressions: Service Date/Time: Saturday, June 24, 2017 13:37 - CONCLUSION: Negative for major branch vessels obstruction in spite of MRI findings. Rudy Meng MD FACR Brain MRI 06/24/17 0000 Signed Impressions: Service Date/Time: Saturday, June 24, 2017 13:37 - CONCLUSION: Findings consistent with acute infarct left sylvian region anteriorly without hemorrhage. Rudy Meng MD FACR Head CT 06/22/17 1225 Signed Impressions: Service Date/Time: Thursday, June 22, 2017 14:22 - CONCLUSION: 1. Acute ischemic infarct involving the left insular cortex Jose Richard MD Carotid Artery Ultrasound 06/22/17 0000 Signed Impressions: Service Date/Time: Thursday, June 22, 2017 15:56 - CONCLUSION: No evidence of flow-limiting carotid stenosis. Christopher Leonardo MD Abdomen Ultrasound 06/22/17 0000 Signed Impressions: Service Date/Time: Thursday, June 22, 2017 16:30 - CONCLUSION: Distended gallbladder with wall thickening and internal debris. Mild calyceal dilatation involving the kidneys bilaterally Christopher Leonardo MD Objective Remarks GENERAL: Chronically ill-appearing female, appearing older than stated age in restraints. CARDIOVASCULAR: Normal rate and regular rhythm without murmurs, gallops, or rubs. RESPIRATORY: Some coarse breath sounds bilaterally. Mostly upper airway transmission. Barrel chested. GASTROINTESTINAL: Abdomen soft, non-tender, non-distended. Normal active bowel sounds MUSCULOSKELETAL: Extremities without cyanosis, or edema. NEURO: Alert to self. Aphasic. However able to nod to questions. A/P Problem List: (1) Acute respiratory failure ICD Code: J96.00 - Acute respiratory failure, unspecified whether with hypoxia or hypercapnia (2) Anxiety ICD Code: F41.9 - Anxiety disorder, unspecified (3) COPD (chronic obstructive pulmonary disease) ICD Code: J44.9 - Chronic obstructive pulmonary disease, unspecified (4) Chronically on benzodiazepine therapy ICD Code: Z79.899 - Other longterm (current) drug therapy (5) Low TSH level ICD Code: R94.6 - Abnormal results of thyroid function studies (6) Elevated troponin ICD Code: R74.8 - Abnormal levels of other serum enzymes (7) Elevated CPK ICD Code: R74.8 - Abnormal levels of other serum enzymes (8) Serum ammonia increased ICD Code: E72.20 - Disorder of urea cycle metabolism, unspecified (9) Elevated transaminase level ICD Code: R74.0 - Nonspecific elevation of levels of transaminase and lactic acid dehydrogenase [LDH] (10) Lactic acidosis ICD Code: E87.2 - Acidosis (11) Hyperglycemia ICD Code: R73.9 - Hyperglycemia, unspecified (12) Tobacco abuse ICD Code: Z72.0 - Tobacco use (13) Tetrahydrocannabinol (THC) use disorder, mild, abuse ICD Code: F12.10 - Cannabis abuse, uncomplicated (14) Acute kidney injury ICD Code: N17.9 - Acute kidney failure, unspecified (15) Thrombocytopenia ICD Code: D69.6 - Thrombocytopenia, unspecified (16) Polycythemia ICD Code: D75.1 - Secondary polycythemia (17) CVA (cerebral vascular accident) ICD Code: I63.9 - Cerebral infarction, unspecified (18) Stroke ICD Code: I63.9 - Cerebral infarction, unspecified Status: Acute (19) Incontinence ICD Code: R32 - Unspecified urinary incontinence (20) Cystitis ICD Code: N30.90 - Cystitis, unspecified without hematuria Assessment and Plan This is a 62-year-old female admitted in respiratory failure. Patient was not able to get out of the chair and was intubated by EMS on the scene. Patient was found to have a CVA. She had an ICU course. She is now extubated and transferred to the hospitalist service. Patient also has GI bleeding. She is not able to pass a swallow evaluation. She needs a feeding tube per GI. Respiratory status is currently stable. 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 Carotid Dopplers negative. MRI brain 06/24 revealed left sylvian fissure CVA. MRA brain 06/24 negative for occlusive disease Resume lactulose. 2-D echocardiogram revealed EF 40-45%. Right atrial and right ventricular dilatation. Hemoglobin A1c 6.5/lipids revealed low HDL 38. Low-cholesterol 95. Hold per rectum aspirin given rectal bleeding. Transition to [facility] Neurology Dr. Barr Hypertension Cardiomyopathy: - Patient evaluated by cardiology. 2-D echo revealed LVEF of 45%. Cardiomyopathy. Continue beta marilou. PRN antihypertensives. Conservative measures per cardiology given the comorbidities. - IV hydralazine for SBP more than 160 Acute hypoxemic respiratory failure-resolved Pneumonia with Stenotrophomonas Mild post extubation stridor Extubated 06/28/17 tolerated well. Mild post extubation stridor appears to have resolved. 5 doses of Decadron ordered Bronchodilator therapy with albuterol/ipratropium aerosols every 6 hours with albuterol nebs every 2 hours. Chest x-ray stable bibasilar airspace disease Levaquin for stenotrophomonas Upper GI bleed Elevated transaminases Elevated ammonia Hypoalbuminemia Hepatitis C antibody positive Rectal bleeding: Protonix gtt changed to 40 mg IV q12. Patient repeatedly failed swallow evaluation. Hep C genotype/viral load pending HIDA scan 06/28 with distended gallbladder-no evidence of acute cholecystitis GI following- planning for PEG placement. Follow H&H. Hypokalemia, severe. K 2.6. Replace with PO liquid form and also with 40 mEq by IV. Will repeat level tonight and replace if still low. Check Mag lev will give one dose mag ox 500. Monitor lytes and replace as need. History of incontinence Persaud catheter placed for accurate I's and O's in a critically ill patient. Not stable enough yet to discontinue it. Acute kidney injury Possible secondary to dehydration rhabdo. Continue hydration with D5 quarter normal saline. Urine electrolytes/eosinophils negative Renal ultrasound revealed dilated bilateral calyces. Possibly will need urology evaluation when stabilizes Accurate I's and O's. Thrombocytopenia Monitor CBC daily. Follow trends Stenotrophomonas pneumonia Levaquin 750 mg IV every 24 hours Piperacillin/tazobactam day 7-DC. DCd Vancomycin day #3 Pertinent cultures 06/25 - sputum - stenotrophomonas 06/25 - blood cultures 2 -no growth 06/22 - UA - gram positive mixed organisms. UA 06/25 negative 06/22 - blood cultures 2 - no growth Influenza negative Unable to give acetaminophen secondary to elevated transaminases did unable to give NSAIDs secondary to elevated creatinine PT/OT evaluate and treat Prophylaxis - GI - IV Protonix - DVT - SCD/heparin subcutaneous on hold due to GI bleed. Discussed with the patient, nurse. Problem Qualifiers (1) COPD (chronic obstructive pulmonary disease): Qualified Codes: J43.9 - Emphysema, unspecified (2) CVA (cerebral vascular accident): Qualified Codes: I63.9 - Cerebral infarction, unspecified (3) Stroke: Qualified Codes: I63.9 - Cerebral infarction, unspecified (4) Incontinence: Qualified Codes: R32 - Unspecified urinary incontinence Iza Browning MD Jul 02, 2017 16:16
[2017-07-02] MEDS: POTASSIUM CHLOR 20 MEQ PREMIX 100 ML IV SCH ×4 (16:49→21:31)
[2017-07-03] VITALS (9 sets, daily range): BP systolic 142–167; BP diastolic 84–92; PULSE 76–91; RESP 20–24; TEMP 97.9–98.5; O2SAT 94–98
[2017-07-03] MEDS: RESP: ALBUTEROL 2.5 MG/IPRATROPIUM 0.5 MG NEB (SCH) NEB ×12 (00:49→20:00)
[2017-07-03] MEDS: FREE WATER G-TUBE SCH ×12 (04:00→20:00)
[2017-07-03] MEDS: CHLORHEXIDINE GLUCONATE 2 % 1 PACK (2 CLOTHS) TOP SCH ×2 (04:00)
[2017-07-03] MEDS: METOPROLOL TARTRATE 25 MG TAB PO SCH ×6 (05:51→22:09)
[2017-07-03] MEDS: INSULIN ASPART SUPPLEMENTAL SCALE SQ SCH ×8 (05:57→18:00)
[2017-07-03] MEDS: CHLORHEXIDINE 0.12% (ORAL KIT) 15 ML CUP MT SCH ×4 (08:00→22:09)
--- NOTE | 2017-07-03 08:51 | HHI.GIFU ---
Subjective Remarks Alert, confused, sitting up in bed. Does not have NGT (pulled out). Passed swallow evaluation for Puree diet with honey consistency thickened liquid and no straws. (Selma Fontana) Objective Vitals I&O Vital Signs Date Time Temp Pulse Resp B/P (MAP) Pulse Ox O2 Delivery O2 Flow Rate FiO2 07/03/17 04:00 98.5 91 20 167/84 (111) 96 07/03/17 00:00 97.9 90 20 160/92 (114) 96 07/02/17 21:34 94 Nasal Cannula 1.00 07/02/17 20:00 93 07/02/17 20:00 98.5 97 20 159/85 (109) 94 07/02/17 16:00 98.2 92 25 159/92 (114) 96 07/02/17 11:47 98.7 97 26 128/90 (103) 94 07/02/17 09:28 Nasal Cannula 2.00 I/O 07/02/17 07/02/17 07/02/17 07/03/17 07/03/17 07/03/17 07:00 15:00 23:00 07:00 15:00 23:00 Intake Total 200 ml 630 ml Output Total 800 ml 670 ml 500 ml Balance -800 ml -470 ml 130 ml Intake Oral 480 ml IV Total 150 ml Other 200 ml Output Urine Total 800 ml 670 ml 500 ml Tube Feeding Residual Discard 0 ml # Bowel Movements 2 2 Laboratory Laboratory Tests Test 07/02/17 10:27 White Blood Count 13.0 Red Blood Count 3.07 Hemoglobin 9.2 Hematocrit 28.6 Mean Corpuscular Volume 93.2 Mean Corpuscular Hemoglobin 30.1 Mean Corpuscular Hemoglobin Concent 32.3 Red Cell Distribution Width 13.2 Platelet Count 251 Mean Platelet Volume 9.6 Blood Urea Nitrogen 26 Creatinine 1.03 Random Glucose 128 Calcium Level 8.3 Sodium Level 146 Potassium Level 2.6 Chloride Level 112 Carbon Dioxide Level 26.6 Anion Gap 7 Estimat Glomerular Filtration Rate 55 Date/Time Source Procedure Growth Status 06/25/17 01:40 Blood Peripheral Aerobic Blood Culture - Final NO GROWTH IN 5 DAYS Complete 06/25/17 01:40 Blood Peripheral Anaerobic Blood Culture - Final NO GROWTH IN 5 DAYS Complete 06/25/17 10:00 Sputum Endotracheal Gram Stain - Final Complete 06/25/17 10:00 Sputum Culture - Final Stenotrophomonas Maltophilia Complete 06/22/17 13:30 Urine Catheterized Urine Urine Culture - Final 10-50,000 CFU/ML MIXED GRAM POSITIVE ... Complete Imaging Last Impressions Abdomen X-Ray 07/01/17 1044 Signed Impressions: Service Date/Time: Saturday, July 01, 2017 10:45 - CONCLUSION: NG as above. Rudy Meng MD FACR Chest X-Ray 06/30/17 0600 Signed Impressions: Service Date/Time: June 04:18 - CONCLUSION: 1. Status post extubation with continued bilateral mild lower lobe airspace disease, likely atelectasis. 2. Stable elevation of the left hemidiaphragm. Gustavo Santoro MD Hepatobiliary Scan Nuclear Medicine 06/28/17 0900 Signed Impressions: Service Date/Time: Wednesday, June 28, 2017 10:17 - CONCLUSION: Nonspecific persistent distention of the gallbladder. No evidence of acute cholecystitis or biliary obstruction. Christopher Gutierrez MD Lung Scan-VQ Nuclear Medicine 06/24/17 0000 Signed Impressions: Service Date/Time: Saturday, June 24, 2017 12:21 - CONCLUSION: 1. Low probability of pulmonary embolism Jose Richard MD Head Magnetic Resonance Angiography 06/24/17 0000 Signed Impressions: Service Date/Time: Saturday, June 24, 2017 13:37 - CONCLUSION: Negative for major branch vessels obstruction in spite of MRI findings. Rudy Meng MD FACR Brain MRI 06/24/17 0000 Signed Impressions: Service Date/Time: Saturday, June 24, 2017 13:37 - CONCLUSION: Findings consistent with acute infarct left sylvian region anteriorly without hemorrhage. Rudy Meng MD FACR Head CT 06/22/17 1225 Signed Impressions: Service Date/Time: Thursday, June 22, 2017 14:22 - CONCLUSION: 1. Acute ischemic infarct involving the left insular cortex Jose Richard MD Carotid Artery Ultrasound 06/22/17 0000 Signed Impressions: Service Date/Time: Thursday, June 22, 2017 15:56 - CONCLUSION: No evidence of flow-limiting carotid stenosis. Christopher Leonardo MD Abdomen Ultrasound 06/22/17 0000 Signed Impressions: Service Date/Time: Thursday, June 22, 2017 16:30 - CONCLUSION: Distended gallbladder with wall thickening and internal debris. Mild calyceal dilatation involving the kidneys bilaterally Christopher Leonardo MD Physical Exam HEENT: Normocephalic; atraumatic; no jaundice. CHEST: Rhonchi CARDIAC: RRR ABDOMEN: Soft, nondistended, nontender; no hepatosplenomegaly; bowel sounds are present in all four quadrants. EXTREMITIES: No clubbing, cyanosis, or edema. SKIN: Multiple scabs to extremities COMPLIANCE PROGRAM MANAGER: awake, confused (Selma Fontana) Assessment and Plan Plan ASSESSMENT: - Dysphagia. Pt had failed swallow evaluation and we were planning for possible PEG next week. However, patient has since passed swallow evaluation and can have Puree diet with honey consistency liquids and no straws. Will see how her oral intake is with this prior to proceeding with PEG tube placement. Encourage po intake. - GIB, blood noted in both [place] and [place] last night. Aspirin and SubQ Heparin have been placed on hold. Not currently having active bleeding. HH 9.2/28.6 yesterday. Will check today. PPI. - Confusion, hepatic encephalopathy. Ammonia 48. More alert, although remains confused. Cont. Lactulose. Xifaxan. - Distended gallbladder, Abdominal US 06/22/17--CONCLUSION: Distended gallbladder with wall thickening and internal debris. Mild calyceal dilatation involving the kidneys bilaterally. HIDA (06/28/17)---- > Nonspecific persistent distention of the gallbladder. No evidence of acute cholecystitis or biliary obstruction. - Hepatitis C reactive, wuant 3,470,000 Hep C genotyp 2b. LFTs trending down - Cardiomyopathy per primary - Stenotrophomonas PNA - per attending. PLAN: - Puree diet with honey consistency liquids - Encourage po intake - Record all meal percentages - Calorie count over the weekend - Cont. PPI - Cont. Lactulose - Add Xifaxan - Monitor HH, transfuse as necessary - Supportive care - Further recommendations to follow based on results of above. - Pt seen and examined by Dr. Love and myself and this note is written on his behalf (Selma Fontana) Physician Comments seen, examined agree with above monitor hb closely transfuse to keep hb more than 8 (Adilene Love MD) Selma Fontana [place] Jul 03, 2017 08:51 Adilene Love MD Jul 03, 2017 19:48
[2017-07-03] MEDS: SODIUM CHLORIDE 0.9% FLUSH 10 ML FLUSH IV FLUSH SCH ×4 (09:24→22:08)
[2017-07-03] MEDS: ASPIRIN 81 MG CHEW TAB PO SCH ×2 (09:24)
[2017-07-03] MEDS: PANTOPRAZOLE SODIUM 40 MG VIAL IV PUSH SCH ×4 (09:26→22:09)
[2017-07-03] MEDS: LACTULOSE SYRUP 20 GM/30 ML CUP PO SCH ×4 (09:30→21:00)
[2017-07-03 11:05] LABS: AUTOMATED NEUTROPHIL # 12.3 TH/MM3 (1.8-7.7); BASOPHIL % 0.1 % (0.0-2.0); EOSINOPHIL # 0.1 TH/MM3 (0-0.4); HEMATOCRIT 26.8 % (35.0-46.0); HEMOGLOBIN 8.7 GM/DL (11.6-15.3); LYMPH % 6.9 % (9.0-44.0); MEAN CELL VOLUME 93.9 FL (80.0-100.0); MEAN CORPUSCULAR HEMOGLOBIN 30.6 PG (27.0-34.0); MEAN CORPUSCULAR HGB CONC 32.6 % (32.0-36.0); MEAN PLATELET VOLUME 9.8 FL (7.0-11.0); MONO % 4.6 % (0.0-8.0); MONOCYTE # 0.7 TH/MM3 (0-0.9); NEUT % 87.4 % (16.0-70.0); PLATELET COUNT 216 TH/MM3 (150-450); RED BLOOD COUNT 2.85 MIL/MM3 (4.00-5.30); RED CELL DISTRIBUTION WIDTH 13.3 % (11.6-17.2); WHITE BLOOD COUNT 14.1 TH/MM3 (4.0-11.0)
[2017-07-03 11:48] LABS: CREATININE 1.06 MG/DL (0.50-1.00); MAGNESIUM 2.2 MG/DL (1.5-2.5)
[2017-07-03] MEDS: RIFAXIMIN 550 MG TAB PO SCH ×4 (11:54→22:09)
[2017-07-03] MEDS: ARTIFICIAL TEARS OPTH SOLN 15 ML BTL EACH EYE SCH ×6 (11:54→18:00)
[2017-07-03] MEDS ORDERED: POTASSIUM CHLORIDE 25 MEQ EFFERVESCENT TAB PO ONE ×2 (14:15)
--- NOTE | 2017-07-03 14:21 | HHI.PR ---
Subjective Remarks In the bed. She pulled NG tube last night/ K is low again today. Passed swallow eval. Says she is eating some. Agitated on /off, however appears more awake and alert. Nods to questions. No fever or chills. No cough. Objective Vitals Vital Signs Date Time Temp Pulse Resp B/P (MAP) Pulse Ox O2 Delivery O2 Flow Rate FiO2 07/03/17 09:53 96 Nasal Cannula 2.00 07/03/17 08:00 98.1 83 24 142/86 (104) 97 07/03/17 04:00 98.5 91 20 167/84 (111) 96 07/03/17 00:00 97.9 90 20 160/92 (114) 96 07/02/17 21:34 94 Nasal Cannula 1.00 07/02/17 20:00 93 07/02/17 20:00 98.5 97 20 159/85 (109) 94 07/02/17 16:00 98.2 92 25 159/92 (114) 96 I/O 07/02/17 07/02/17 07/02/17 07/03/17 07/03/17 07/03/17 06:59 14:59 22:59 06:59 14:59 22:59 Intake Total 200 ml 630 ml Output Total 800 ml 670 ml 500 ml 1200 ml Balance -800 ml -470 ml 130 ml -1200 ml Intake Oral 480 ml IV Total 150 ml Other 200 ml Output Urine Total 800 ml 670 ml 500 ml 1200 ml Tube Feeding Residual Discard 0 ml # Bowel Movements 2 2 Result Diagram: 07/03/17 1025 07/03/17 1025 Imaging Last Impressions Abdomen X-Ray 07/01/17 1044 Signed Impressions: Service Date/Time: Saturday, July 01, 2017 10:45 - CONCLUSION: NG as above. Rudy Meng MD FACR Chest X-Ray 06/30/17 0600 Signed Impressions: Service Date/Time: June 04:18 - CONCLUSION: 1. Status post extubation with continued bilateral mild lower lobe airspace disease, likely atelectasis. 2. Stable elevation of the left hemidiaphragm. Gustavo Santoro MD Hepatobiliary Scan Nuclear Medicine 06/28/17 0900 Signed Impressions: Service Date/Time: Wednesday, June 28, 2017 10:17 - CONCLUSION: Nonspecific persistent distention of the gallbladder. No evidence of acute cholecystitis or biliary obstruction. Christopher Gutierrez MD Lung Scan-V Nuclear Medicine 06/24/17 0000 Signed Impressions: Service Date/Time: Saturday, June 24, 2017 12:21 - CONCLUSION: 1. Low probability of pulmonary embolism Jose Richard MD Head Magnetic Resonance Angiography 06/24/17 0000 Signed Impressions: Service Date/Time: Saturday, June 24, 2017 13:37 - CONCLUSION: Negative for major branch vessels obstruction in spite of MRI findings. Rudy Meng MD FACR Brain MRI 06/24/17 0000 Signed Impressions: Service Date/Time: Saturday, June 24, 2017 13:37 - CONCLUSION: Findings consistent with acute infarct left sylvian region anteriorly without hemorrhage. Rudy Meng MD FACR Head CT 06/22/17 1225 Signed Impressions: Service Date/Time: Thursday, June 22, 2017 14:22 - CONCLUSION: 1. Acute ischemic infarct involving the left insular cortex Jose Richard MD Carotid Artery Ultrasound 06/22/17 0000 Signed Impressions: Service Date/Time: Thursday, June 22, 2017 15:56 - CONCLUSION: No evidence of flow-limiting carotid stenosis. Christopher Leonardo MD Abdomen Ultrasound 06/22/17 0000 Signed Impressions: Service Date/Time: Thursday, June 22, 2017 16:30 - CONCLUSION: Distended gallbladder with wall thickening and internal debris. Mild calyceal dilatation involving the kidneys bilaterally Christopher Leonardo MD Objective Remarks GENERAL: Chronically ill-appearing female, cachectic, appearing older than stated age, in soft restraints. CARDIOVASCULAR: Normal rate and regular rhythm without murmurs, gallops, or rubs. RESPIRATORY: Some coarse breath sounds bilaterally. Mostly upper airway transmission. Barrel chested. GASTROINTESTINAL: Abdomen soft, non-tender, non-distended. Normal active bowel sounds MUSCULOSKELETAL: Very thin extremities. Extremities without cyanosis, or edema. NEURO: Alert to self. Aphasic. However able to nod to questions. A/P Problem List: (1) Acute respiratory failure ICD Code: J96.00 - Acute respiratory failure, unspecified whether with hypoxia or hypercapnia (2) Anxiety ICD Code: F41.9 - Anxiety disorder, unspecified (3) COPD (chronic obstructive pulmonary disease) ICD Code: J44.9 - Chronic obstructive pulmonary disease, unspecified (4) Chronically on benzodiazepine therapy ICD Code: Z79.899 - Other custodial (current) drug therapy (5) Low TSH level ICD Code: R94.6 - Abnormal results of thyroid function studies (6) Elevated troponin ICD Code: R74.8 - Abnormal levels of other serum enzymes (7) Elevated CPK ICD Code: R74.8 - Abnormal levels of other serum enzymes (8) Serum ammonia increased ICD Code: E72.20 - Disorder of urea cycle metabolism, unspecified (9) Elevated transaminase level ICD Code: R74.0 - Nonspecific elevation of levels of transaminase and lactic acid dehydrogenase [LDH] (10) Lactic acidosis ICD Code: E87.2 - Acidosis (11) Hyperglycemia ICD Code: R73.9 - Hyperglycemia, unspecified (12) Tobacco abuse ICD Code: Z72.0 - Tobacco use (13) Tetrahydrocannabinol (THC) use disorder, mild, abuse ICD Code: F12.10 - Cannabis abuse, uncomplicated (14) Acute kidney injury ICD Code: N17.9 - Acute kidney failure, unspecified (15) Thrombocytopenia ICD Code: D69.6 - Thrombocytopenia, unspecified (16) Polycythemia ICD Code: D75.1 - Secondary polycythemia (17) CVA (cerebral vascular accident) ICD Code: I63.9 - Cerebral infarction, unspecified (18) Stroke ICD Code: I63.9 - Cerebral infarction, unspecified Status: Acute (19) Incontinence ICD Code: R32 - Unspecified urinary incontinence (20) Cystitis ICD Code: N30.90 - Cystitis, unspecified without hematuria Assessment and Plan This is a 62-year-old female admitted in respiratory failure. Patient was not able to get out of the chair and was intubated by EMS on the scene. Patient was found to have a CVA. She had an ICU course. She is now extubated and transferred to the hospitalist service. Patient also has GI bleeding. She is not able to pass a swallow evaluation. She needs a feeding tube per GI. Respiratory status is currently stable. 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 Carotid Dopplers negative. MRI brain 06/24 revealed left sylvian fissure CVA. MRA brain 06/24 negative for occlusive disease Resume lactulose. 2-D echocardiogram revealed EF 40-45%. Right atrial and right ventricular dilatation. Hemoglobin A1c 6.5/lipids revealed low HDL 38. Low-cholesterol 95. Hold per rectum aspirin given rectal bleeding. Transition to t Neurology Dr. Barr Hypertension Cardiomyopathy: - Patient evaluated by cardiology. 2-D echo revealed LVEF of 45%. Cardiomyopathy. Continue beta marilou. PRN antihypertensives. Conservative measures per cardiology given the comorbidities. - IV hydralazine for SBP more than 160 Acute hypoxemic respiratory failure-resolved Pneumonia with Stenotrophomonas Mild post extubation stridor Extubated 06/28/17 tolerated well. Mild post extubation stridor appears to have resolved. 5 doses of Decadron ordered Bronchodilator therapy with albuterol/ipratropium aerosols every 6 hours with albuterol nebs every 2 hours. Chest x-ray stable bibasilar airspace disease Levaquin for stenotrophomonas Upper GI bleed Elevated transaminases Elevated ammonia Hypoalbuminemia Hepatitis C antibody positive Rectal bleeding: Protonix gtt changed to 40 mg IV q12. Patient repeatedly failed swallow evaluation. Hep C genotype/viral load pending HIDA scan 06/28 with distended gallbladder-no evidence of acute cholecystitis GI following- planning for PEG placement. However patient passed swallow evaluation ( thick liquids, soft diet ) will do calorie count Follow H&H. Hypokalemia, severe. K 2.7. Replace with PO potassium bicarb and also with 40 mEq KCl by IV. Will repeat level tonight and replace if still low. Check Mag lev will give one dose mag ox 500. Monitor lytes and replace as need. Hypernatremia/Hyperchloremia: Improving. Monitor. Might start free water History of incontinence Persaud catheter placed for accurate I's and O's in a critically ill patient. Not stable enough yet to discontinue it. Acute kidney injury Possible secondary to dehydration rhabdo. Continue hydration with D5 quarter normal saline. Urine electrolytes/eosinophils negative Renal ultrasound revealed dilated bilateral calyces. Possibly will need urology evaluation when stabilizes Accurate I's and O's. Thrombocytopenia Monitor CBC daily. Follow trends Stenotrophomonas pneumonia Levaquin 750 mg IV every 24 hours Piperacillin/tazobactam day 7-DC. DCd Vancomycin day #3 Pertinent cultures 06/25 - sputum - stenotrophomonas 06/25 - blood cultures 2 -no growth 06/22 - UA - gram positive mixed organisms. UA 06/25 negative 06/22 - blood cultures 2 - no growth Influenza negative Unable to give acetaminophen secondary to elevated transaminases did unable to give NSAIDs secondary to elevated creatinine PT/OT evaluate and treat Prophylaxis - GI - IV Protonix - DVT - SCD/heparin subcutaneous on hold due to GI bleed. Discussed with the patient, nurse. Problem Qualifiers (1) COPD (chronic obstructive pulmonary disease): Qualified Codes: J43.9 - Emphysema, unspecified (2) CVA (cerebral vascular accident): Qualified Codes: I63.9 - Cerebral infarction, unspecified (3) Stroke: Qualified Codes: I63.9 - Cerebral infarction, unspecified (4) Incontinence: Qualified Codes: R32 - Unspecified urinary incontinence Iza Browning MD Jul 03, 2017 14:21
[2017-07-03] MEDS: LEVOFLOXACIN 750 MG PREMIX INJ 150 ML IV SCH ×2 (14:51)
[2017-07-03] MEDS ORDERED: POTASSIUM BICARBONATE 25 MEQ EFFERVESCENT TAB PO ONE ×2 (15:00)
[2017-07-03] MEDS: POTASSIUM CHLOR 20 MEQ PREMIX 100 ML IV SCH ×4 (16:13→23:12)
[2017-07-03] MEDS: MORPHINE SULFATE 4 MG/ML INJ IV PUSH PRN ×2 (22:09)
[2017-07-04] VITALS (7 sets, daily range): BP systolic 137–173; BP diastolic 80–101; PULSE 69–86; RESP 18–20; TEMP 97.6–98.7; O2SAT 94–99
[2017-07-04] MEDS: ENALAPRILAT 2.5 MG/2 ML VIAL IV PUSH PRN ×2 (01:20)
[2017-07-04] MEDS: RESP: ALBUTEROL 2.5 MG/IPRATROPIUM 0.5 MG NEB (SCH) NEB ×8 (03:50→11:26)
[2017-07-04] MEDS: FREE WATER G-TUBE SCH ×12 (04:00→20:00)
[2017-07-04] MEDS: CHLORHEXIDINE GLUCONATE 2 % 1 PACK (2 CLOTHS) TOP SCH ×2 (04:12)
[2017-07-04] MEDS: METOPROLOL TARTRATE 25 MG TAB PO SCH ×6 (05:41→23:04)
[2017-07-04] MEDS: INSULIN ASPART SUPPLEMENTAL SCALE SQ SCH ×8 (05:43→17:24)
[2017-07-04 08:49] LABS: BASOPHIL % 0.2 % (0.0-2.0); EOSINOPHIL # 0.2 TH/MM3 (0-0.4); EOSINOPHIL % 1.3 % (0.0-4.0); HEMATOCRIT 28.8 % (35.0-46.0); HEMOGLOBIN 9.6 GM/DL (11.6-15.3); LYMPH % 7.6 % (9.0-44.0); LYMPHOCYTE # 1.3 TH/MM3 (1.0-4.8); MEAN CELL VOLUME 93.3 FL (80.0-100.0); MEAN CORPUSCULAR HEMOGLOBIN 31.1 PG (27.0-34.0); MEAN CORPUSCULAR HGB CONC 33.3 % (32.0-36.0); MEAN PLATELET VOLUME 10.3 FL (7.0-11.0); MONO % 5.5 % (0.0-8.0); NEUT % 85.4 % (16.0-70.0); PLATELET COUNT 217 TH/MM3 (150-450); RED BLOOD COUNT 3.09 MIL/MM3 (4.00-5.30); RED CELL DISTRIBUTION WIDTH 13.3 % (11.6-17.2); WHITE BLOOD COUNT 17.5 TH/MM3 (4.0-11.0)
[2017-07-04 08:56] LABS: ALBUMIN 2.5 GM/DL (3.4-5.0); AST (GOT) 22 U/L (15-37); BICARBONATE 27.1 MEQ/L (21.0-32.0); CALCIUM 8.3 MG/DL (8.5-10.1); CHLORIDE 111 MEQ/L (98-107); CREATININE 1.02 MG/DL (0.50-1.00); GLOMERULAR FILTRATION RATE 55 ML/MIN (>89); GLUCOSE,RANDOM 97 MG/DL (74-106); MAGNESIUM 2.2 MG/DL (1.5-2.5); SODIUM (NA) 145 MEQ/L (136-145)
[2017-07-04 09:00] LABS: BLOOD UREA NITROGEN 17 MG/DL (7-18)
[2017-07-04 09:01] LABS: ALKALINE PHOSPHATASE 57 U/L (45-117); ALT (GPT) 131 U/L (10-53); PHOSPHORUS 2.4 MG/DL (2.5-4.9); TOTAL BILIRUBIN ADULT 0.5 MG/DL (0.2-1.0); TOTAL PROTEIN 6.3 GM/DL (6.4-8.2)
[2017-07-04] MEDS: ARTIFICIAL TEARS OPTH SOLN 15 ML BTL EACH EYE SCH ×6 (11:18→17:24)
[2017-07-04] MEDS: SODIUM CHLORIDE 0.9% FLUSH 10 ML FLUSH IV FLUSH SCH ×4 (11:19→23:04)
[2017-07-04] MEDS: ASPIRIN 81 MG CHEW TAB PO SCH ×2 (11:19)
[2017-07-04] MEDS: LACTULOSE SYRUP 20 GM/30 ML CUP PO SCH ×4 (11:19→23:04)
[2017-07-04] MEDS: RIFAXIMIN 550 MG TAB PO SCH ×4 (11:19→23:02)
[2017-07-04] MEDS: PANTOPRAZOLE SODIUM 40 MG VIAL IV PUSH SCH ×4 (11:20→23:02)
[2017-07-04] MEDS: CHLORHEXIDINE 0.12% (ORAL KIT) 15 ML CUP MT SCH ×4 (11:21→20:00)
--- NOTE | 2017-07-04 12:05 | HHI.PR ---
Subjective Remarks In the bed. Nodding to questions, doesn't appear in distress she is alert and oriented, appears less agiated. Says she is eating. No pain at this time. No n/v /d/c. Objective Vitals Vital Signs Date Time Temp Pulse Resp B/P (MAP) Pulse Ox O2 Delivery O2 Flow Rate FiO2 07/04/17 08:00 98.0 69 20 158/94 (115) 98 07/04/17 04:00 98.1 76 20 140/88 (105) 97 07/04/17 02:08 155/80 (105) 07/04/17 00:00 98.4 77 20 173/101 (125) 94 07/03/17 21:00 78 07/03/17 20:27 98 Nasal Cannula 1.00 07/03/17 20:00 98.2 83 20 157/90 (112) 94 07/03/17 16:00 98.2 76 20 145/85 (105) 98 I/O 07/03/17 07/03/17 07/03/17 07/04/17 07/04/17 07/04/17 07:00 15:00 23:00 07:00 15:00 23:00 Intake Total 360 ml 240 ml Output Total 1200 ml 250 ml 700 ml Balance -1200 ml 110 ml -460 ml Intake Oral 360 ml 240 ml Output Urine Total 1200 ml 250 ml 700 ml Result Diagram: 07/04/17 0755 07/04/17 0755 Objective Remarks GENERAL: Chronically ill-appearing female, cachectic, appearing older than stated age, in soft restraints. CARDIOVASCULAR: Normal rate and regular rhythm without murmurs, gallops, or rubs. RESPIRATORY: Some coarse breath sounds bilaterally. Mostly upper airway transmission. Barrel chested. GASTROINTESTINAL: Abdomen soft, non-tender, non-distended. Normal active bowel sounds MUSCULOSKELETAL: Very thin extremities. Extremities without cyanosis, or edema. NEURO: Alert to self. Aphasic. However able to nod to questions. A/P Problem List: (1) Acute respiratory failure ICD Code: J96.00 - Acute respiratory failure, unspecified whether with hypoxia or hypercapnia (2) Anxiety ICD Code: F41.9 - Anxiety disorder, unspecified (3) COPD (chronic obstructive pulmonary disease) ICD Code: J44.9 - Chronic obstructive pulmonary disease, unspecified (4) Chronically on benzodiazepine therapy ICD Code: Z79.899 - Other senior care (current) drug therapy (5) Low TSH level ICD Code: R94.6 - Abnormal results of thyroid function studies (6) Elevated troponin ICD Code: R74.8 - Abnormal levels of other serum enzymes (7) Elevated CPK ICD Code: R74.8 - Abnormal levels of other serum enzymes (8) Serum ammonia increased ICD Code: E72.20 - Disorder of urea cycle metabolism, unspecified (9) Elevated transaminase level ICD Code: R74.0 - Nonspecific elevation of levels of transaminase and lactic acid dehydrogenase [LDH] (10) Lactic acidosis ICD Code: E87.2 - Acidosis (11) Hyperglycemia ICD Code: R73.9 - Hyperglycemia, unspecified (12) Tobacco abuse ICD Code: Z72.0 - Tobacco use (13) Tetrahydrocannabinol (THC) use disorder, mild, abuse ICD Code: F12.10 - Cannabis abuse, uncomplicated (14) Acute kidney injury ICD Code: N17.9 - Acute kidney failure, unspecified (15) Thrombocytopenia ICD Code: D69.6 - Thrombocytopenia, unspecified (16) Polycythemia ICD Code: D75.1 - Secondary polycythemia (17) CVA (cerebral vascular accident) ICD Code: I63.9 - Cerebral infarction, unspecified (18) Stroke ICD Code: I63.9 - Cerebral infarction, unspecified Status: Acute (19) Incontinence ICD Code: R32 - Unspecified urinary incontinence (20) Cystitis ICD Code: N30.90 - Cystitis, unspecified without hematuria Assessment and Plan This is a 62-year-old female admitted in respiratory failure. Patient was not able to get out of the chair and was intubated by EMS on the scene. Patient was found to have a CVA. She had an ICU course. She is now extubated and transferred to the hospitalist service. Patient also has GI bleeding. She is not able to pass a swallow evaluation. She needs a feeding tube per GI. Respiratory status is currently stable. 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 Carotid Dopplers negative. MRI brain 06/24 revealed left sylvian fissure CVA. MRA brain 06/24 negative for occlusive disease Resume lactulose. 2-D echocardiogram revealed EF 40-45%. Right atrial and right ventricular dilatation. Hemoglobin A1c 6.5/lipids revealed low HDL 38. Low-cholesterol 95. Hold per rectum aspirin given rectal bleeding. Transition to t Neurology Dr. Barr Hypertension Cardiomyopathy: - Patient evaluated by cardiology. 2-D echo revealed LVEF of 45%. Cardiomyopathy. Continue beta marilou. PRN antihypertensives. Conservative measures per cardiology given the comorbidities. - IV hydralazine for SBP more than 160 Acute hypoxemic respiratory failure-resolved Pneumonia with Stenotrophomonas Mild post extubation stridor Extubated 06/28/17 tolerated well. Mild post extubation stridor appears to have resolved. 5 doses of Decadron ordered Bronchodilator therapy with albuterol/ipratropium aerosols every 6 hours with albuterol nebs every 2 hours. Chest x-ray stable bibasilar airspace disease Levaquin for stenotrophomonas Upper GI bleed Elevated transaminases Elevated ammonia Hypoalbuminemia Hepatitis C antibody positive Rectal bleeding: Protonix gtt changed to 40 mg IV q12. Patient repeatedly failed swallow evaluation. Hep C genotype/viral load pending HIDA scan 06/28 with distended gallbladder-no evidence of acute cholecystitis GI following- planning for PEG placement. However patient passed swallow evaluation ( thick liquids, soft diet ) will do calorie count Follow H&H. Hypokalemia, severe. K 2.7. Replace with PO potassium bicarb and also with 40 mEq KCl by IV. Will repeat level tonight and replace if still low. Check Mag lev will give one dose mag ox 500. Monitor lytes and replace as need. Hypernatremia/Hyperchloremia: Improving. Monitor. Might start free water History of incontinence Persaud catheter placed for accurate I's and O's in a critically ill patient. Not stable enough yet to discontinue it. Acute kidney injury Possible secondary to dehydration rhabdo. Continue hydration with D5 quarter normal saline. Urine electrolytes/eosinophils negative Renal ultrasound revealed dilated bilateral calyces. Possibly will need urology evaluation when stabilizes Accurate I's and O's. Thrombocytopenia Monitor CBC daily. Follow trends Stenotrophomonas pneumonia Levaquin 750 mg IV every 24 hours Piperacillin/tazobactam day 7-DC. DCd Vancomycin day #3 Pertinent cultures 06/25 - sputum - stenotrophomonas 06/25 - blood cultures 2 -no growth 06/22 - UA - gram positive mixed organisms. UA 06/25 negative 06/22 - blood cultures 2 - no growth Influenza negative Unable to give acetaminophen secondary to elevated transaminases did unable to give NSAIDs secondary to elevated creatinine PT/OT evaluate and treat Prophylaxis - GI - IV Protonix - DVT - SCD/heparin subcutaneous on hold due to GI bleed. Discussed with the patient, nurse. Problem Qualifiers (1) COPD (chronic obstructive pulmonary disease): Qualified Codes: J43.9 - Emphysema, unspecified (2) CVA (cerebral vascular accident): Qualified Codes: I63.9 - Cerebral infarction, unspecified (3) Stroke: Qualified Codes: I63.9 - Cerebral infarction, unspecified (4) Incontinence: Qualified Codes: R32 - Unspecified urinary incontinence Iza Browning MD Jul 04, 2017 12:05
[2017-07-04] MEDS: LEVOFLOXACIN 750 MG PREMIX INJ 150 ML IV SCH ×2 (15:01)
[2017-07-04] MEDS: MORPHINE SULFATE 4 MG/ML INJ IV PUSH PRN ×2 (15:04)
[2017-07-05] VITALS (8 sets, daily range): BP systolic 147–165; BP diastolic 84–97; PULSE 62–80; RESP 18–20; TEMP 97.7–99.3; O2SAT 96–100
[2017-07-05] MEDS: CHLORHEXIDINE GLUCONATE 2 % 1 PACK (2 CLOTHS) TOP SCH ×2 (03:19)
[2017-07-05] MEDS: FREE WATER G-TUBE SCH ×6 (03:19→08:00)
[2017-07-05] MEDS: METOPROLOL TARTRATE 25 MG TAB PO SCH ×6 (05:10→21:40)
[2017-07-05] MEDS: INSULIN ASPART SUPPLEMENTAL SCALE SQ SCH ×6 (05:11→12:00)
[2017-07-05] MEDS: CHLORHEXIDINE 0.12% (ORAL KIT) 15 ML CUP MT SCH ×4 (08:00→21:40)
[2017-07-05] MEDS: LACTULOSE SYRUP 20 GM/30 ML CUP PO SCH ×4 (08:12→21:40)
[2017-07-05] MEDS: ASPIRIN 81 MG CHEW TAB PO SCH ×2 (08:12)
[2017-07-05] MEDS: PANTOPRAZOLE SODIUM 40 MG VIAL IV PUSH SCH ×4 (08:13→21:40)
[2017-07-05] MEDS: ARTIFICIAL TEARS OPTH SOLN 15 ML BTL EACH EYE SCH ×6 (08:13→17:09)
[2017-07-05] MEDS: SODIUM CHLORIDE 0.9% FLUSH 10 ML FLUSH IV FLUSH SCH ×4 (08:13→21:40)
--- NOTE | 2017-07-05 10:12 | HHI.PR ---
Subjective Remarks In the bed. Sliding with dizziness to the questions. Piercing optic distress at this time. She is noted less agitated however she still restraints discussed with the nurse looked up the restraints. Has no pain at this time. Patient says she is eating fairly well and she has a good appetite. No nausea or vomiting. No diarrhea or constipation. Denies abdominal pain no new motor deficit. Objective Vitals Vital Signs Date Time Temp Pulse Resp B/P (MAP) Pulse Ox O2 Delivery O2 Flow Rate FiO2 07/05/17 08:07 99.3 72 20 149/84 (105) 97 07/05/17 05:13 98.4 67 19 165/91 (115) 07/05/17 01:43 76 07/04/17 20:00 97.6 80 18 137/80 (99) 99 07/04/17 16:00 98.5 76 20 156/92 (113) 99 07/04/17 12:00 98.7 86 20 166/99 (121) 99 I/O 07/04/17 07/04/17 07/04/17 07/05/17 07/05/17 07/05/17 07:00 15:00 23:00 07:00 15:00 23:00 Intake Total 240 ml 180 ml 238 ml Output Total 700 ml 350 ml Balance -460 ml -170 ml 238 ml Intake Oral 240 ml 180 ml 238 ml Output Urine Total 700 ml 350 ml # Bowel Movements 1 Result Diagram: 07/04/17 0755 07/04/17 0755 Imaging Last Impressions Abdomen X-Ray 07/01/17 1044 Signed Impressions: Service Date/Time: Saturday, July 01, 2017 10:45 - CONCLUSION: NG as above. Rudy eMng MD FACR Chest X-Ray 06/30/17 0600 Signed Impressions: Service Date/Time: June 04:18 - CONCLUSION: 1. Status post extubation with continued bilateral mild lower lobe airspace disease, likely atelectasis. 2. Stable elevation of the left hemidiaphragm. Gustavo Santoro MD Hepatobiliary Scan Nuclear Medicine 06/28/17 0900 Signed Impressions: Service Date/Time: Wednesday, June 28, 2017 10:17 - CONCLUSION: Nonspecific persistent distention of the gallbladder. No evidence of acute cholecystitis or biliary obstruction. Christopher Gutierrez MD Lung Scan-VQ Nuclear Medicine 06/24/17 0000 Signed Impressions: Service Date/Time: Saturday, June 24, 2017 12:21 - CONCLUSION: 1. Low probability of pulmonary embolism Jose Richard MD Head Magnetic Resonance Angiography 06/24/17 0000 Signed Impressions: Service Date/Time: Saturday, June 24, 2017 13:37 - CONCLUSION: Negative for major branch vessels obstruction in spite of MRI findings. Rudy Meng MD FACR Brain MRI 06/24/17 0000 Signed Impressions: Service Date/Time: Saturday, June 24, 2017 13:37 - CONCLUSION: Findings consistent with acute infarct left sylvian region anteriorly without hemorrhage. Rudy Meng MD FACR Head CT 06/22/17 1225 Signed Impressions: Service Date/Time: Thursday, June 22, 2017 14:22 - CONCLUSION: 1. Acute ischemic infarct involving the left insular cortex Jose Richard MD Carotid Artery Ultrasound 06/22/17 0000 Signed Impressions: Service Date/Time: Thursday, June 22, 2017 15:56 - CONCLUSION: No evidence of flow-limiting carotid stenosis. Christopher Leonardo MD Abdomen Ultrasound 06/22/17 0000 Signed Impressions: Service Date/Time: Thursday, June 22, 2017 16:30 - CONCLUSION: Distended gallbladder with wall thickening and internal debris. Mild calyceal dilatation involving the kidneys bilaterally Christopher Leonardo MD Objective Remarks GENERAL: Chronically ill-appearing female, cachectic, appearing older than stated age, in soft restraints. CARDIOVASCULAR: Normal rate and regular rhythm without murmurs, gallops, or rubs. RESPIRATORY: Some coarse breath sounds bilaterally. Mostly upper airway transmission. Barrel chested. GASTROINTESTINAL: Abdomen soft, non-tender, non-distended. Normal active bowel sounds MUSCULOSKELETAL: Very thin extremities. Extremities without cyanosis, or edema. NEURO: Alert to self. Aphasic. However able to nod to questions. A/P Problem List: (1) Acute respiratory failure ICD Code: J96.00 - Acute respiratory failure, unspecified whether with hypoxia or hypercapnia (2) Anxiety ICD Code: F41.9 - Anxiety disorder, unspecified (3) COPD (chronic obstructive pulmonary disease) ICD Code: J44.9 - Chronic obstructive pulmonary disease, unspecified (4) Chronically on benzodiazepine therapy ICD Code: Z79.899 - Other chcf (current) drug therapy (5) Low TSH level ICD Code: R94.6 - Abnormal results of thyroid function studies (6) Elevated troponin ICD Code: R74.8 - Abnormal levels of other serum enzymes (7) Elevated CPK ICD Code: R74.8 - Abnormal levels of other serum enzymes (8) Serum ammonia increased ICD Code: E72.20 - Disorder of urea cycle metabolism, unspecified (9) Elevated transaminase level ICD Code: R74.0 - Nonspecific elevation of levels of transaminase and lactic acid dehydrogenase [LDH] (10) Lactic acidosis ICD Code: E87.2 - Acidosis (11) Hyperglycemia ICD Code: R73.9 - Hyperglycemia, unspecified (12) Tobacco abuse ICD Code: Z72.0 - Tobacco use (13) Tetrahydrocannabinol (THC) use disorder, mild, abuse ICD Code: F12.10 - Cannabis abuse, uncomplicated (14) Acute kidney injury ICD Code: N17.9 - Acute kidney failure, unspecified (15) Thrombocytopenia ICD Code: D69.6 - Thrombocytopenia, unspecified (16) Polycythemia ICD Code: D75.1 - Secondary polycythemia (17) CVA (cerebral vascular accident) ICD Code: I63.9 - Cerebral infarction, unspecified (18) Stroke ICD Code: I63.9 - Cerebral infarction, unspecified Status: Acute (19) Incontinence ICD Code: R32 - Unspecified urinary incontinence (20) Cystitis ICD Code: N30.90 - Cystitis, unspecified without hematuria Assessment and Plan This is a 62-year-old female admitted in respiratory failure. Patient was not able to get out of the chair and was intubated by EMS on the scene. Patient was found to have a CVA. She had an ICU course. She is now extubated and transferred to the hospitalist service. Patient also has GI bleeding. She is not able to pass a swallow evaluation. She needs a feeding tube per GI. Respiratory status is currently stable. 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 Carotid Dopplers negative. MRI brain 06/24 revealed left sylvian fissure CVA. MRA brain 06/24 negative for occlusive disease Resume lactulose. 2-D echocardiogram revealed EF 40-45%. Right atrial and right ventricular dilatation. Hemoglobin A1c 6.5/lipids revealed low HDL 38. Low-cholesterol 95. Hold per rectum aspirin given rectal bleeding. Transition to t Neurology Dr. Barr Hypertension Cardiomyopathy: - Patient evaluated by cardiology. 2-D echo revealed LVEF of 45%. Cardiomyopathy. Continue beta marilou. PRN antihypertensives. Conservative measures per cardiology given the comorbidities. - IV hydralazine for SBP more than 160 Acute hypoxemic respiratory failure-resolved Pneumonia with Stenotrophomonas Mild post extubation stridor Extubated 06/28/17 tolerated well. Mild post extubation stridor appears to have resolved. 5 doses of Decadron ordered Bronchodilator therapy with albuterol/ipratropium aerosols every 6 hours with albuterol nebs every 2 hours. Chest x-ray stable bibasilar airspace disease Levaquin for stenotrophomonas Upper GI bleed Elevated transaminases Elevated ammonia Hypoalbuminemia Hepatitis C antibody positive Rectal bleeding: Protonix gtt changed to 40 mg IV q12. Patient repeatedly failed swallow evaluation. Hep C genotype/viral load pending HIDA scan 06/28 with distended gallbladder-no evidence of acute cholecystitis GI following- planning for PEG placement. Patient pulled NG tube. However patient passed swallow evaluation ( thick liquids, soft diet ), will do calorie count Follow H&H. Hypokalemia, severe. K 2.7. Replace with PO potassium bicarb and also with 40 mEq KCl by IV. Will repeat level tonight and replace if still low. Check Mag lev will give one dose mag ox 500. Monitor lytes and replace as need. Hypernatremia/Hyperchloremia: Improving. Monitor. Might start free water History of incontinence Persaud catheter placed for accurate I's and O's in a critically ill patient. Not stable enough yet to discontinue it. Acute kidney injury Possible secondary to dehydration rhabdo. Continue hydration with D5 quarter normal saline. Urine electrolytes/eosinophils negative Renal ultrasound revealed dilated bilateral calyces. Possibly will need urology evaluation when stabilizes Accurate I's and O's. Thrombocytopenia Monitor CBC daily. Follow trends Stenotrophomonas pneumonia Levaquin 750 mg IV every 24 hours Piperacillin/tazobactam day 7-DC. DCd Vancomycin day #3 Pertinent cultures 06/25 - sputum - stenotrophomonas 06/25 - blood cultures 2 -no growth 06/22 - UA - gram positive mixed organisms. UA / negative 06/22 - blood cultures 2 - no growth Influenza negative Unable to give acetaminophen secondary to elevated transaminases did unable to give NSAIDs secondary to elevated creatinine PT/OT evaluate and treat Prophylaxis - GI - IV Protonix - DVT - SCD/heparin subcutaneous on hold due to GI bleed. Discussed with the patient, nurse. Problem Qualifiers (1) COPD (chronic obstructive pulmonary disease): Qualified Codes: J43.9 - Emphysema, unspecified (2) CVA (cerebral vascular accident): Qualified Codes: I63.9 - Cerebral infarction, unspecified (3) Stroke: Qualified Codes: I63.9 - Cerebral infarction, unspecified (4) Incontinence: Qualified Codes: R32 - Unspecified urinary incontinence Iza Browning MD Jul 05, 2017 10:12
[2017-07-05] MEDS ORDERED: POTASSIUM BICARBONATE 25 MEQ EFFERVESCENT TAB PO ONE ×2 (10:15)
[2017-07-05] MEDS: RIFAXIMIN 550 MG TAB PO SCH ×4 (10:48→21:40)
[2017-07-05] MEDS: LEVOFLOXACIN 750 MG PREMIX INJ 150 ML IV SCH ×2 (14:14)
--- NOTE | 2017-07-05 16:08 | HHI.PR ---
Review/Management Diagnosis Left hemisphere cva. cardiomyopathy CVA may be cardioembolic Plan recheck CT. If no hemorrhage, consider anticoagulation due to risk of cardioembolic cva Diagnosis/Plan: Subjective Subjective Comments No acute events reported No headache Active Medications Current Medications Medications (Trade) Dose Ordered Sig/Rosanna Route Start Time Stop Time Status Last Admin (NS Flush) 2 ml UNSCH PRN IV FLUSH 06/22/17 15:15 (NS Flush) 2 ml BID IV FLUSH 06/22/17 21:00 07/05/17 08:13 (Tears Naturale Opth Soln) 1 drop TID EACH EYE 06/22/17 18:00 07/05/17 12:01 (Zofran Inj) 4 mg Q6H PRN IV 06/22/17 15:15 (Albuterol Neb) 2.5 mg Q2HR NEB PRN INH 06/22/17 15:15 06/28/17 15:52 (Heparin Inj) 5,000 units Q12H SQ 06/22/17 15:15 Future Hold 06/29/17 14:38 Miscellaneous Information 1 Q361D XX 06/22/17 15:15 06/22/17 15:15 (Chlorhexidine 2% Cloth) Taper DAILY@04 TOP 06/23/17 04:00 06/19/18 03:59 06/29/17 04:00 (Chlorhexidine 2% Cloth) 3 pack UNSCH PRN TOP 06/22/17 15:15 (Milk Of Magnesia Liq) 30 ml Q12H PRN PO 06/22/17 15:15 (Senokot) 17.2 mg Q12H PRN PO 06/22/17 15:15 (Dulcolax Supp) 10 mg DAILY PRN RECTAL 06/22/17 15:15 (Lactulose Liq) 30 ml DAILY PRN PO 06/22/17 15:15 (Peridex 0.12% Liq) 15 ml BID@08,20 MT 06/22/17 20:00 07/05/17 08:00 (Trandate Inj) 10 mg Q2H PRN IV 06/22/17 15:45 Nicardipine HCl 25 mg/Sodium Chloride 260 ml @ 52 mls/hr TITRATE PRN IV 06/22/17 16:00 Future Hold (Aspirin Chew) 81 mg DAILY PO 06/23/17 09:00 Future hold 07/05/17 08:12 (D50w (Vial) Inj) 50 ml UNSCH PRN IV PUSH 06/22/17 15:45 (Glucagon Inj) 1 mg UNSCH PRN OTHER 06/22/17 15:45 (NovoLOG SUPPLEMENTAL SCALE) 1 Q6HR SQ 06/23/17 12:00 07/01/17 06:16 (Pill Splitter) 1 ea UNSCH PRN OTHER 06/24/17 15:00 Levofloxacin/ Dextrose 150 ml @ 100 mls/hr Q24H IV 06/27/17 14:00 07/05/17 14:14 (Prinivil) 10 mg DAILY OG-TUBE 06/28/17 10:00 Future Hold (Protonix Inj) 40 mg Q12H IV PUSH 06/29/17 08:00 07/05/17 08:13 (Lopressor) 25 mg Q8HR PO 06/29/17 14:00 07/05/17 14:14 (Haldol Inj) 5 mg Q6H PRN IM 06/30/17 12:30 07/01/17 21:23 (Morphine Inj) 2 mg Q3H PRN IV PUSH 06/30/17 12:30 07/04/17 15:04 (Vasotec Inj) 2.5 mg Q6H PRN IV PUSH 06/30/17 21:00 07/04/17 01:20 (Lactulose Liq) 30 ml BID PO 07/01/17 21:00 07/05/17 08:12 (Xifaxan) 550 mg BID PO 07/03/17 09:00 07/05/17 10:48 Allergies Allergies Coded Allergies No Known Allergies (Verified06/22/17) Exam I&O / VS 07/05/17 07/05/17 07/06/17 15:00 23:00 07:00 Intake Total 360 ml Output Total 550 ml Balance -190 ml Intake Oral 360 ml Output Urine Total 550 ml # Bowel Movements 1 Vital Signs Date Time Temp Pulse Resp B/P (MAP) Pulse Ox O2 Delivery O2 Flow Rate FiO2 07/05/17 15:50 98.2 79 20 163/93 (116) 96 07/05/17 15:26 62 07/05/17 11:52 98.4 80 20 147/90 (109) 100 07/05/17 08:07 99.3 72 20 149/84 (105) 97 07/05/17 05:13 98.4 67 19 165/91 (115) 07/05/17 01:43 76 07/04/17 20:00 97.6 80 18 137/80 (99) 99 Exam Comments more alert, follows complex commands. Has expressive aphasia PERRL, EOM intact, right upper motor neuron CN 7 palsey MOTOR--weaker on RUE than LUE Objective Micro and Labs Date/Time Source Procedure Growth Status 06/25/17 01:40 Blood Peripheral Aerobic Blood Culture - Final NO GROWTH IN 5 DAYS Complete 06/25/17 01:40 Blood Peripheral Anaerobic Blood Culture - Final NO GROWTH IN 5 DAYS Complete 06/25/17 10:00 Sputum Endotracheal Gram Stain - Final Complete 06/25/17 10:00 Sputum Culture - Final Stenotrophomonas Maltophilia Complete 06/22/17 13:30 Urine Catheterized Urine Urine Culture - Final 10-50,000 CFU/ML MIXED GRAM POSITIVE ... Complete Vadim Barr PhD Jul 05, 2017 16:08
[2017-07-05] MEDS: MORPHINE SULFATE 4 MG/ML INJ IV PUSH PRN ×2 (21:54)
[2017-07-05] MEDS: ENALAPRILAT 2.5 MG/2 ML VIAL IV PUSH PRN ×2 (23:43)
[2017-07-06] VITALS (10 sets, daily range): BP systolic 143–176; BP diastolic 84–93; PULSE 69–80; RESP 18–20; TEMP 97.8–98.6; O2SAT 90–99
[2017-07-06] MEDS: CHLORHEXIDINE GLUCONATE 2 % 1 PACK (2 CLOTHS) TOP SCH ×2 (03:07)
[2017-07-06] MEDS: METOPROLOL TARTRATE 25 MG TAB PO SCH ×6 (06:17→21:35)
[2017-07-06] MEDS: CHLORHEXIDINE 0.12% (ORAL KIT) 15 ML CUP MT SCH ×4 (08:00→19:45)
[2017-07-06] MEDS: RIFAXIMIN 550 MG TAB PO SCH ×4 (08:26→21:35)
[2017-07-06] MEDS: ARTIFICIAL TEARS OPTH SOLN 15 ML BTL EACH EYE SCH ×6 (08:26→17:00)
[2017-07-06] MEDS: ASPIRIN 81 MG CHEW TAB PO SCH ×2 (08:26)
[2017-07-06] MEDS: SODIUM CHLORIDE 0.9% FLUSH 10 ML FLUSH IV FLUSH SCH ×4 (08:26→21:35)
[2017-07-06] MEDS: PANTOPRAZOLE SODIUM 40 MG VIAL IV PUSH SCH ×4 (08:26→19:45)
--- NOTE | 2017-07-06 08:56 | HHI.PR ---
Subjective Remarks In bed, doesn't appear in distress. No change since yesterday. No fever or chills. No new deficit. Objective Vitals Vital Signs Date Time Temp Pulse Resp B/P (MAP) Pulse Ox O2 Delivery O2 Flow Rate FiO2 07/06/17 08:03 98.3 73 20 167/84 (111) 98 07/06/17 07:14 75 07/06/17 04:29 98.4 75 18 151/91 (111) 96 07/06/17 02:45 75 07/06/17 00:05 98.4 76 18 165/90 (115) 97 07/05/17 20:42 97.7 78 18 165/97 (119) 97 07/05/17 16:11 96 Nasal Cannula 2.00 07/05/17 15:50 98.2 79 20 163/93 (116) 96 07/05/17 15:26 62 07/05/17 11:52 98.4 80 20 147/90 (109) 100 I/O 07/05/17 07/05/17 07/05/17 07/06/17 07/06/17 07/06/17 07:00 15:00 23:00 07:00 15:00 23:00 Intake Total 238 ml 360 ml 300 ml Output Total 550 ml 900 ml Balance 238 ml -190 ml -600 ml Intake Oral 238 ml 360 ml 300 ml Output Urine Total 550 ml 900 ml # Bowel Movements 1 1 1 Result Diagram: 07/04/17 0755 07/04/17 0755 Imaging Last Impressions Head CT 07/06/17 0000 Signed Impressions: Service Date/Time: Thursday, July 06, 2017 09:07 - CONCLUSION: 1. 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 2. Mucous retention cyst within left maxillary and right sphenoid sinuses. Juan Pablo Huffman MD Abdomen X-Ray 07/01/17 1044 Signed Impressions: Service Date/Time: Saturday, July 01, 2017 10:45 - CONCLUSION: NG as above. Rudy Meng MD FACR Chest X-Ray 06/30/17 0600 Signed Impressions: Service Date/Time: June 04:18 - CONCLUSION: 1. Status post extubation with continued bilateral mild lower lobe airspace disease, likely atelectasis. 2. Stable elevation of the left hemidiaphragm. Gustavo Santoro MD Hepatobiliary Scan Nuclear Medicine 06/28/17 0900 Signed Impressions: Service Date/Time: Wednesday, June 28, 2017 10:17 - CONCLUSION: Nonspecific persistent distention of the gallbladder. No evidence of acute cholecystitis or biliary obstruction. Christopher Gutierrez MD Lung Scan-VQ Nuclear Medicine 06/24/17 0000 Signed Impressions: Service Date/Time: Saturday, June 24, 2017 12:21 - CONCLUSION: 1. Low probability of pulmonary embolism Jose Richard MD Head Magnetic Resonance Angiography 06/24/17 Signed Impressions: Service Date/Time: Saturday, June 24, 2017 13:37 - CONCLUSION: Negative for major branch vessels obstruction in spite of MRI findings. Rudy Meng MD FACR Brain MRI 06/24/17 0000 Signed Impressions: Service Date/Time: Saturday, June 24, 2017 13:37 - CONCLUSION: Findings consistent with acute infarct left sylvian region anteriorly without hemorrhage. Rudy Meng MD FACR Carotid Artery Ultrasound 06/22/17 0000 Signed Impressions: Service Date/Time: Thursday, June 22, 2017 15:56 - CONCLUSION: No evidence of flow-limiting carotid stenosis. Christopher Leonardo MD Abdomen Ultrasound 06/22/17 Signed Impressions: Service Date/Time: Thursday, June 22, 2017 16:30 - CONCLUSION: Distended gallbladder with wall thickening and internal debris. Mild calyceal dilatation involving the kidneys bilaterally Christopher Leonardo MD Objective Remarks GENERAL: Chronically ill-appearing female, cachectic, appearing older than stated age, in soft restraints. CARDIOVASCULAR: Normal rate and regular rhythm without murmurs, gallops, or rubs. RESPIRATORY: Some coarse breath sounds bilaterally. Mostly upper airway transmission. Barrel chested. GASTROINTESTINAL: Abdomen soft, non-tender, non-distended. Normal active bowel sounds MUSCULOSKELETAL: Very thin extremities. Extremities without cyanosis, or edema. NEURO: Alert to self. Aphasic. However able to nod to questions. A/P Problem List: (1) Acute respiratory failure ICD Code: J96.00 - Acute respiratory failure, unspecified whether with hypoxia or hypercapnia (2) Anxiety ICD Code: F41.9 - Anxiety disorder, unspecified (3) COPD (chronic obstructive pulmonary disease) ICD Code: J44.9 - Chronic obstructive pulmonary disease, unspecified (4) Chronically on benzodiazepine therapy ICD Code: Z79.899 - Other long term care social worker (current) drug therapy (5) Low TSH level ICD Code: R94.6 - Abnormal results of thyroid function studies (6) Elevated troponin ICD Code: R74.8 - Abnormal levels of other serum enzymes (7) Elevated CPK ICD Code: R74.8 - Abnormal levels of other serum enzymes (8) Serum ammonia increased ICD Code: E72.20 - Disorder of urea cycle metabolism, unspecified (9) Elevated transaminase level ICD Code: R74.0 - Nonspecific elevation of levels of transaminase and lactic acid dehydrogenase [LDH] (10) Lactic acidosis ICD Code: E87.2 - Acidosis (11) Hyperglycemia ICD Code: R73.9 - Hyperglycemia, unspecified (12) Tobacco abuse ICD Code: Z72.0 - Tobacco use (13) Tetrahydrocannabinol (THC) use disorder, mild, abuse ICD Code: F12.10 - Cannabis abuse, uncomplicated (14) Acute kidney injury ICD Code: N17.9 - Acute kidney failure, unspecified (15) Thrombocytopenia ICD Code: D69.6 - Thrombocytopenia, unspecified (16) Polycythemia ICD Code: D75.1 - Secondary polycythemia (17) CVA (cerebral vascular accident) ICD Code: I63.9 - Cerebral infarction, unspecified (18) Stroke ICD Code: I63.9 - Cerebral infarction, unspecified Status: Acute (19) Incontinence ICD Code: R32 - Unspecified urinary incontinence (20) Cystitis ICD Code: N30.90 - Cystitis, unspecified without hematuria Assessment and Plan This is a 62-year-old female admitted in respiratory failure. Patient was not able to get out of the chair and was intubated by EMS on the scene. Patient was found to have a CVA. She had an ICU course. She is now extubated and transferred to the hospitalist service. Patient also has GI bleeding. She is not able to pass a swallow evaluation. She needs a feeding tube per GI. Respiratory status is currently stable. 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 Carotid Dopplers negative. MRI brain 06/24 revealed left sylvian fissure CVA. MRA brain 06/24 negative for occlusive disease Resume lactulose. 2-D echocardiogram revealed EF 40-45%. Right atrial and right ventricular dilatation. Hemoglobin A1c 6.5/lipids revealed low HDL 38. Low-cholesterol 95. Hold per rectum aspirin given rectal bleeding. Transition to ngt Neurology Dr. Barr Hypertension Cardiomyopathy: - Patient evaluated by cardiology. 2-D echo revealed LVEF of 45%. Cardiomyopathy. Continue beta marilou. PRN antihypertensives. Conservative measures per cardiology given the comorbidities. - IV hydralazine for SBP more than 160 Acute hypoxemic respiratory failure-resolved Pneumonia with Stenotrophomonas Mild post extubation stridor Extubated 06/28/17 tolerated well. Mild post extubation stridor appears to have resolved. 5 doses of Decadron ordered Bronchodilator therapy with albuterol/ipratropium aerosols every 6 hours with albuterol nebs every 2 hours. Chest x-ray stable bibasilar airspace disease Levaquin for stenotrophomonas Upper GI bleed Elevated transaminases Elevated ammonia Hypoalbuminemia Hepatitis C antibody positive Rectal bleeding: Protonix gtt changed to 40 mg IV q12. Patient repeatedly failed swallow evaluation. Hep C genotype/viral load pending HIDA scan 06/28 with distended gallbladder-no evidence of acute cholecystitis GI following- planning for PEG placement. Patient pulled NG tube. However patient passed swallow evaluation ( thick liquids, soft diet ), will do calorie count Follow H&H. Hypokalemia, severe. K 2.7. Replace with PO potassium bicarb and also with 40 mEq KCl by IV. Will repeat level tonight and replace if still low. Check Mag lev will give one dose mag ox 500. Monitor lytes and replace as need. Hypernatremia/Hyperchloremia: Improving. Monitor. Might start free water History of incontinence Persaud catheter placed for accurate I's and O's in a critically ill patient. Not stable enough yet to discontinue it. Acute kidney injury Possible secondary to dehydration rhabdo. Continue hydration with D5 quarter normal saline. Urine electrolytes/eosinophils negative Renal ultrasound revealed dilated bilateral calyces. Possibly will need urology evaluation when stabilizes Accurate I's and O's. Thrombocytopenia Monitor CBC daily. Follow trends Stenotrophomonas pneumonia Levaquin 750 mg IV every 24 hours Piperacillin/tazobactam day 7-DC. DCd Vancomycin day #3 Pertinent cultures 06/25 - sputum - stenotrophomonas 06/25 - blood cultures 2 -no growth 06/22 - UA - gram positive mixed organisms. UA 06/25 negative 06/22 - blood cultures 2 - no growth Influenza negative Unable to give acetaminophen secondary to elevated transaminases did unable to give NSAIDs secondary to elevated creatinine PT/OT evaluate and treat Prophylaxis - GI - IV Protonix - DVT - SCD/heparin subcutaneous on hold due to GI bleed. Discussed with the patient, nurse. Problem Qualifiers (1) COPD (chronic obstructive pulmonary disease): Qualified Codes: J43.9 - Emphysema, unspecified (2) CVA (cerebral vascular accident): Qualified Codes: I63.9 - Cerebral infarction, unspecified (3) Stroke: Qualified Codes: I63.9 - Cerebral infarction, unspecified (4) Incontinence: Qualified Codes: R32 - Unspecified urinary incontinence Iza Browning MD Jul 06, 2017 08:56
[2017-07-06] MEDS: LACTULOSE SYRUP 20 GM/30 ML CUP PO SCH ×4 (09:33→21:35)
--- NOTE | 2017-07-06 09:49 | RADRPT ---
EXAM DATE/TIME: 07/06/2017 09:07 [facility] COMPARISON: MRI BRAIN W/O CONTRAST, June 24, 2017, 13:37. CT BRAIN W/O CONTRAST, June 22, 2017, 14:22. INDICATIONS : Follow up stroke. RADIATION DOSE: 56.40 CTDIvol (mGy) MEDICAL HISTORY : Chronic obstructive pulmonary disease. SURGICAL HISTORY : None. ENCOUNTER: Subsequent ACUITY: 3 weeks PAIN SCALE: 0/10 LOCATION: cranial TECHNIQUE: Multiple contiguous axial images were obtained of the head. Using automated exposure control and adj ustment of the mA and/or kV according to patient size, radiation dose was kept as low as reasonably a chievable to obtain optimal diagnostic quality images. DICOM format image data is available electro nically for review and comparison. FINDINGS: CEREBRUM: There is a stable subacute infarct within the left temporoparietal region. No acute infarct, acute he morrhage, midline shift or extra-axial fluid collections are noted. POSTERIOR FOSSA: The cerebellum and brainstem are intact. The 4th ventricle is midline. The cerebellopontine angle i s unremarkable. EXTRACRANIAL: The visualized portion of the orbits is intact. There is a moderate-sized mucous retention cyst withi n left maxillary sinus and a tiny mucus retention cyst within the right sphenoid sinus. SKULL: The calvaria is intact. No evidence of skull fracture. CONCLUSION: 1. 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 2. Mucous retention cyst within left maxillary and right sphenoid sinuses. Juan Pablo Huffman MD on July 06, 2017 at 9:41 Board Certified Radiologist. This report was verified electronically.
[2017-07-06] MEDS: RESP: ALBUTEROL 2.5 MG/3 ML NEB (PRN) INH ×4 (12:37→17:50)
[2017-07-06 12:59] LABS: BICARBONATE 27.4 MEQ/L (21.0-32.0); CALCIUM 8.3 MG/DL (8.5-10.1); CREATININE 0.99 MG/DL (0.50-1.00)
[2017-07-06 13:03] LABS: AUTOMATED NEUTROPHIL # 10.9 TH/MM3 (1.8-7.7); BASOPHIL # 0.1 TH/MM3 (0-0.2); BASOPHIL % 0.4 % (0.0-2.0); EOSINOPHIL # 0.2 TH/MM3 (0-0.4); EOSINOPHIL % 1.3 % (0.0-4.0); HEMATOCRIT 30.3 % (35.0-46.0); HEMOGLOBIN 9.7 GM/DL (11.6-15.3); LYMPH % 9.7 % (9.0-44.0); LYMPHOCYTE # 1.4 TH/MM3 (1.0-4.8); MEAN CELL VOLUME 93.4 FL (80.0-100.0); MEAN CORPUSCULAR HEMOGLOBIN 29.8 PG (27.0-34.0); MEAN CORPUSCULAR HGB CONC 31.9 % (32.0-36.0); MEAN PLATELET VOLUME 9.8 FL (7.0-11.0); MONO % 10.9 % (0.0-8.0); MONOCYTE # 1.5 TH/MM3 (0-0.9); NEUT % 77.7 % (16.0-70.0); PLATELET COUNT 307 TH/MM3 (150-450); RED BLOOD COUNT 3.25 MIL/MM3 (4.00-5.30); RED CELL DISTRIBUTION WIDTH 13.2 % (11.6-17.2); WHITE BLOOD COUNT 14.1 TH/MM3 (4.0-11.0)
[2017-07-06] MEDS: LEVOFLOXACIN 750 MG PREMIX INJ 150 ML IV SCH ×2 (14:00)
[2017-07-06] MEDS ORDERED: LISINOPRIL 10 MG TAB PO ONE ×2 (14:00)
--- NOTE | 2017-07-06 16:58 | HHI.PR ---
Review/Management Diagnosis Left hemisphere cva. cardiomyopathy CVA may be cardioembolic Plan CT brain today shows insular CVA with no hemorrhage. Would hold off on anticoagulation however due to recent GI bleed. Diagnosis/Plan: Subjective Subjective Comments No acute events reported No change in aphasia. Feels stronger on right side Active Medications Current Medications Medications (Trade) Dose Ordered Sig/Rosanna Route Start Time Stop Time Status Last Admin (NS Flush) 2 ml UNSCH PRN IV FLUSH 06/22/17 15:15 (NS Flush) 2 ml BID IV FLUSH 06/22/17 21:00 07/06/17 08:26 (Tears Naturale Opth Soln) 1 drop TID EACH EYE 06/22/17 18:00 07/06/17 14:00 (Zofran Inj) 4 mg Q6H PRN IV 06/22/17 15:15 (Albuterol Neb) 2.5 mg Q2HR NEB PRN INH 06/22/17 15:15 07/06/17 12:37 (Heparin Inj) 5,000 units Q12H SQ 06/22/17 15:15 Future Hold 06/29/17 14:38 Miscellaneous Information 1 Q361D XX 06/22/17 15:15 06/22/17 15:15 (Chlorhexidine 2% Cloth) Taper DAILY@04 TOP 06/23/17 04:00 06/19/18 03:59 06/29/17 04:00 (Chlorhexidine 2% Cloth) 3 pack UNSCH PRN TOP 06/22/17 15:15 (Milk Of Magnesia Liq) 30 ml Q12H PRN PO 06/22/17 15:15 (Senokot) 17.2 mg Q12H PRN PO 06/22/17 15:15 (Dulcolax Supp) 10 mg DAILY PRN RECTAL 06/22/17 15:15 (Lactulose Liq) 30 ml DAILY PRN PO 06/22/17 15:15 (Peridex 0.12% Liq) 15 ml BID@08,20 MT 06/22/17 20:00 07/05/17 21:40 (Trandate Inj) 10 mg Q2H PRN IV 06/22/17 15:45 Nicardipine HCl 25 mg/Sodium Chloride 260 ml @ 52 mls/hr TITRATE PRN IV 06/22/17 16:00 Future Hold (Aspirin Chew) 81 mg DAILY PO 06/23/17 09:00 Future hold 07/06/17 08:26 (D50w (Vial) Inj) 50 ml UNSCH PRN IV PUSH 06/22/17 15:45 (Glucagon Inj) 1 mg UNSCH PRN OTHER 06/22/17 15:45 (Pill Splitter) 1 ea UNSCH PRN OTHER 06/24/17 15:00 Levofloxacin/ Dextrose 150 ml @ 100 mls/hr Q24H IV 06/27/17 14:00 07/06/17 14:00 (Protonix Inj) 40 mg Q12H IV PUSH 06/29/17 08:00 07/06/17 08:26 (Lopressor) 25 mg Q8HR PO 06/29/17 14:00 07/06/17 14:00 (Haldol Inj) 5 mg Q6H PRN IM 06/30/17 12:30 07/01/17 21:23 (Morphine Inj) 2 mg Q3H PRN IV PUSH 06/30/17 12:30 07/05/17 21:54 (Vasotec Inj) 2.5 mg Q6H PRN IV PUSH 06/30/17 21:00 07/05/17 23:43 (Lactulose Liq) 30 ml BID PO 07/01/17 21:00 07/06/17 09:33 (Xifaxan) 550 mg BID PO 07/03/17 09:00 07/06/17 08:26 (Prinivil) 10 mg DAILY PO 07/07/17 09:00 Allergies Allergies Coded Allergies No Known Allergies (Verified06/22/17) Exam I&O / VS 07/06/17 07/06/17 07/07/17 15:00 23:00 07:00 Intake Total 480 ml Output Total 1250 ml Balance -770 ml Intake Oral 480 ml Output Urine Total 1250 ml # Bowel Movements 1 Vital Signs Date Time Temp Pulse Resp B/P (MAP) Pulse Ox O2 Delivery O2 Flow Rate FiO2 07/06/17 15:58 97.9 69 20 154/91 (112) 99 07/06/17 12:45 98 Nasal Cannula 2.00 07/06/17 12:00 97.8 78 20 176/93 (120) 90 07/06/17 08:03 98.3 73 20 167/84 (111) 98 07/06/17 07:14 75 07/06/17 04:29 98.4 75 18 151/91 (111) 96 07/06/17 02:45 75 07/06/17 00:05 98.4 76 18 165/90 (115) 97 07/05/17 20:42 97.7 78 18 165/97 (119) 97 Exam Comments more alert, follows complex commands. Has expressive aphasia PERRL, EOM intact, right upper motor neuron CN 7 palsey MOTOR--weaker on RUE than LUE Objective Micro and Labs Laboratory Tests Test 07/06/17 11:51 White Blood Count 14.1 Red Blood Count 3.25 Hemoglobin 9.7 Hematocrit 30.3 Mean Corpuscular Volume 93.4 Mean Corpuscular Hemoglobin 29.8 Mean Corpuscular Hemoglobin Concent 31.9 Red Cell Distribution Width 13.2 Platelet Count 307 Mean Platelet Volume 9.8 Neutrophils (%) (Auto) 77.7 Lymphocytes (%) (Auto) 9.7 Monocytes (%) (Auto) 10.9 Eosinophils (%) (Auto) 1.3 Basophils (%) (Auto) 0.4 Neutrophils # (Auto) 10.9 Lymphocytes # (Auto) 1.4 Monocytes # (Auto) 1.5 Eosinophils # (Auto) 0.2 Basophils # (Auto) 0.1 CBC Comment DIFF FINAL Differential Comment Hematology Comments Blood Urea Nitrogen 14 Creatinine 0.99 Random Glucose 89 Calcium Level 8.3 Sodium Level 143 Potassium Level 3.6 Chloride Level 107 Carbon Dioxide Level 27.4 Anion Gap 9 Estimat Glomerular Filtration Rate 57 Date/Time Source Procedure Growth Status 06/25/17 01:40 Blood Peripheral Aerobic Blood Culture - Final NO GROWTH IN 5 DAYS Complete 06/25/17 01:40 Blood Peripheral Anaerobic Blood Culture - Final NO GROWTH IN 5 DAYS Complete 06/25/17 10:00 Sputum Endotracheal Gram Stain - Final Complete 06/25/17 10:00 Sputum Culture - Final Stenotrophomonas Maltophilia Complete 06/22/17 13:30 Urine Catheterized Urine Urine Culture - Final 10-50,000 CFU/ML MIXED GRAM POSITIVE ... Complete Vadim Barr PhD Jul 06, 2017 16:58
[2017-07-06] MEDS: MORPHINE SULFATE 4 MG/ML INJ IV PUSH PRN ×4 (19:45→23:58)
[2017-07-07] VITALS (8 sets, daily range): BP systolic 121–150; BP diastolic 78–92; PULSE 73–95; RESP 16–21; TEMP 97.4–98.9; O2SAT 91–100
[2017-07-07] MEDS: CHLORHEXIDINE GLUCONATE 2 % 1 PACK (2 CLOTHS) TOP SCH ×2 (03:50)
[2017-07-07] MEDS: METOPROLOL TARTRATE 25 MG TAB PO SCH ×6 (05:57→20:09)
[2017-07-07] MEDS: CHLORHEXIDINE 0.12% (ORAL KIT) 15 ML CUP MT SCH ×4 (07:30→19:56)
[2017-07-07] MEDS: LISINOPRIL 10 MG TAB PO SCH ×2 (09:00)
[2017-07-07] MEDS: LACTULOSE SYRUP 20 GM/30 ML CUP PO SCH ×4 (09:00→19:56)
[2017-07-07] MEDS: RIFAXIMIN 550 MG TAB PO SCH ×4 (09:00→19:55)
[2017-07-07] MEDS: ASPIRIN 81 MG CHEW TAB PO SCH ×2 (09:00)
[2017-07-07] MEDS: MORPHINE SULFATE 4 MG/ML INJ IV PUSH PRN ×6 (09:05→19:55)
[2017-07-07] MEDS: PANTOPRAZOLE SODIUM 40 MG VIAL IV PUSH SCH ×4 (09:05→19:55)
[2017-07-07] MEDS: ARTIFICIAL TEARS OPTH SOLN 15 ML BTL EACH EYE SCH ×6 (09:06→17:22)
[2017-07-07] MEDS: SODIUM CHLORIDE 0.9% FLUSH 10 ML FLUSH IV FLUSH SCH ×4 (09:06→19:56)
[2017-07-07] MEDS: LEVOFLOXACIN 750 MG PREMIX INJ 150 ML IV SCH ×2 (13:43)
--- NOTE | 2017-07-07 14:27 | HHI.PR ---
Subjective Remarks Patient is in bed. Nods yes/no. Wants to eat , is hungry. No new motor deficit. No n/v/d/c. Deneis chest pain or sob. She si less agitated and is now off restraints. Objective Vitals Vital Signs Date Time Temp Pulse Resp B/P (MAP) Pulse Ox O2 Delivery O2 Flow Rate FiO2 07/07/17 12:00 98.4 80 21 142/87 (105) 91 07/07/17 08:45 97 Nasal Cannula 3.00 07/07/17 08:00 97.4 73 16 150/92 (111) 100 07/07/17 05:06 98.6 84 18 144/84 (104) 95 07/07/17 00:47 98.9 84 18 144/86 (105) 95 07/06/17 22:34 Nasal Cannula 2.00 07/06/17 22:33 80 07/06/17 20:25 98.6 80 18 143/90 (107) 95 07/06/17 15:58 97.9 69 20 154/91 (112) 99 I/O 07/06/17 07/06/17 07/06/17 07/07/17 07/07/17 07/07/17 07:00 15:00 23:00 07:00 15:00 23:00 Intake Total 300 ml 480 ml 240 ml 240 ml Output Total 900 ml 1250 ml 850 ml Balance -600 ml -770 ml -610 ml 240 ml Intake Oral 300 ml 480 ml 240 ml 240 ml Output Urine Total 900 ml 1250 ml 850 ml # Voids 1 # Bowel Movements 1 1 1 Result Diagram: 07/06/17 1151 07/06/17 1151 Objective Remarks GENERAL: Chronically ill-appearing female, cachectic, appearing older than stated age, less agitated, off restraints CARDIOVASCULAR: Normal rate and regular rhythm without murmurs, gallops, or rubs. RESPIRATORY: Some coarse breath sounds bilaterally. Mostly upper airway transmission. Barrel chested. GASTROINTESTINAL: Abdomen soft, non-tender, non-distended. Normal active bowel sounds MUSCULOSKELETAL: Very thin extremities. Extremities without cyanosis, or edema. NEURO: Alert to self. Aphasic. However able to nod to questions. 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 therapy (5) Low TSH level ICD Code: R94.6 - Abnormal results of thyroid function studies (6) Elevated troponin ICD Code: R74.8 - Abnormal levels of other serum enzymes (7) Elevated CPK ICD Code: R74.8 - Abnormal levels of other serum enzymes (8) Serum ammonia increased ICD Code: E72.20 - Disorder of urea cycle metabolism, unspecified (9) Elevated transaminase level ICD Code: R74.0 - Nonspecific elevation of levels of transaminase and lactic acid dehydrogenase [LDH] (10) Lactic acidosis ICD Code: E87.2 - Acidosis (11) Hyperglycemia ICD Code: R73.9 - Hyperglycemia, unspecified (12) Tobacco abuse ICD Code: Z72.0 - Tobacco use (13) Tetrahydrocannabinol (THC) use disorder, mild, abuse ICD Code: F12.10 - Cannabis abuse, uncomplicated (14) Acute kidney injury ICD Code: N17.9 - Acute kidney failure, unspecified (15) Thrombocytopenia ICD Code: D69.6 - Thrombocytopenia, unspecified (16) Polycythemia ICD Code: D75.1 - Secondary polycythemia (17) CVA (cerebral vascular accident) ICD Code: I63.9 - Cerebral infarction, unspecified (18) Stroke ICD Code: I63.9 - Cerebral infarction, unspecified Status: Acute (19) Incontinence ICD Code: R32 - Unspecified urinary incontinence (20) Cystitis ICD Code: N30.90 - Cystitis, unspecified without hematuria Assessment and Plan This is a 62-year-old female admitted in respiratory failure. Patient was not able to get out of the chair and was intubated by EMS on the scene. Patient was found to have a CVA. She had an ICU course. She is now extubated and transferred to the hospitalist service. Patient also has GI bleeding. She is not able to pass a swallow evaluation. She needs a feeding tube per GI. Respiratory status is currently stable. Left insular cortex CVA 2.5 cm, with expressive aphasia and right hemiparesis Chronic benzodiazepine use THC use Hyperammonemia Dysphagia s/p stoke . Advance diet per ST. Plan for modified barium swallow. Patient pulled NGT out CT head 06/22 revealed 2.5 cm left insular cortex CVA. Carotid Dopplers negative. MRI brain 06/24 revealed left sylvian fissure CVA. MRA brain 06/24 negative for occlusive disease Resume lactulose. 2-D echocardiogram revealed EF 40-45%. Right atrial and right ventricular dilatation. Hemoglobin A1c 6.5/lipids revealed low HDL 38. Low-cholesterol 95. Hold per rectum aspirin given rectal bleeding. Transition to ngt Neurology Dr. Barr Hypertension Cardiomyopathy: - Patient evaluated by cardiology. 2-D echo revealed LVEF of 45%. Cardiomyopathy. Continue beta marilou. PRN antihypertensives. Conservative measures per cardiology given the comorbidities. - IV hydralazine for SBP more than 160 Acute hypoxemic respiratory failure-resolved Pneumonia with Stenotrophomonas Mild post extubation stridor Extubated 06/28/17 tolerated well. Mild post extubation stridor appears to have resolved. 5 doses of Decadron ordered Bronchodilator therapy with albuterol/ipratropium aerosols every 6 hours with albuterol nebs every 2 hours. Chest x-ray stable bibasilar airspace disease Levaquin for stenotrophomonas Upper GI bleed Elevated transaminases Elevated ammonia Hypoalbuminemia Hepatitis C antibody positive Rectal bleeding: Protonix gtt changed to 40 mg IV q12. Patient repeatedly failed swallow evaluation. Hep C genotype/viral load pending HIDA scan 06/28 with distended gallbladder-no evidence of acute cholecystitis GI following- planning for PEG placement. Patient pulled NG tube. However patient passed swallow evaluation ( thick liquids, soft diet ), will do calorie count Follow H&H. Hypokalemia, severe. K 2.7. Replace with PO potassium bicarb and also with 40 mEq KCl by IV. Will repeat level tonight and replace if still low. Check Mag lev will give one dose mag ox 500. Monitor lytes and replace as need. Hypernatremia/Hyperchloremia: Improving. Monitor. Might start free water History of incontinence Presaud catheter placed for accurate I's and O's in a critically ill patient. Not stable enough yet to discontinue it. Acute kidney injury Possible secondary to dehydration rhabdo. Continue hydration with D5 quarter normal saline. Urine electrolytes/eosinophils negative Renal ultrasound revealed dilated bilateral calyces. Possibly will need urology evaluation when stabilizes Accurate I's and O's. Thrombocytopenia Monitor CBC daily. Follow trends Stenotrophomonas pneumonia Levaquin 750 mg IV every 24 hours Piperacillin/tazobactam day 7-DC. DCd Vancomycin day #3 Pertinent cultures 06/25 - sputum - stenotrophomonas 06/25 - blood cultures 2 -no growth 06/22 - UA - gram positive mixed organisms. UA / negative 06/22 - blood cultures 2 - no growth Influenza negative Unable to give acetaminophen secondary to elevated transaminases did unable to give NSAIDs secondary to elevated creatinine PT/OT evaluate and treat Prophylaxis - GI - IV Protonix - DVT - SCD/heparin subcutaneous on hold due to GI bleed. Discussed with the patient, nurse. Problem Qualifiers (1) COPD (chronic obstructive pulmonary disease): Qualified Codes: J43.9 - Emphysema, unspecified (2) CVA (cerebral vascular accident): Qualified Codes: I63.9 - Cerebral infarction, unspecified (3) Stroke: Qualified Codes: I63.9 - Cerebral infarction, unspecified (4) Incontinence: Qualified Codes: R32 - Unspecified urinary incontinence Iza Browning MD Jul 07, 2017 14:26
--- NOTE | 2017-07-07 18:47 | HHI.GIFU ---
GI Follow-up Note Consult Follow-up Subjective: Patient laying in bed comfortably,agitated .Was reevaluated by speech, as she was pocketing her pills.Recommended clear liquids.Failed calorie count.Discussed about feeding tube, not interested.We will discuss with family Objective: PHYSICAL EXAMINATION: Vitals signs stable No fever Vital Signs Date Time Temp Pulse Resp B/P (MAP) Pulse Ox O2 Delivery O2 Flow Rate FiO2 07/07/17 16:00 97.6 90 21 121/83 (96) 94 07/07/17 12:00 98.4 80 21 142/87 (105) 91 HEENT: Pupils round and reactive to light; normocephalic; atraumatic; no jaundice. Throat is clear. NECK: Neck is supple, no JVD, no lymphadenopathy. CHEST: Chest is clear to auscultation and percussion. CARDIAC: Regular rate and rhythm with no murmur gallop or rubs. ABDOMEN: Soft, nondistended, nontender; no hepatosplenomegaly; bowel sounds are present in all four quadrants. EXTREMITIES: No clubbing, cyanosis, or edema. SKIN: Normal; no rash; no jaundice. 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 Available Data (labs, X- Rays, Procedues) : Laboratory Tests Test 07/06/17 11:51 White Blood Count 14.1 TH/MM3 Red Blood Count 3.25 MIL/MM3 Hemoglobin 9.7 GM/DL Hematocrit 30.3 % Mean Corpuscular Volume 93.4 FL Mean Corpuscular Hemoglobin 29.8 PG Mean Corpuscular Hemoglobin Concent 31.9 % Red Cell Distribution Width 13.2 % Platelet Count 307 TH/MM3 Mean Platelet Volume 9.8 FL Neutrophils (%) (Auto) 77.7 % Lymphocytes (%) (Auto) 9.7 % Monocytes (%) (Auto) 10.9 % Eosinophils (%) (Auto) 1.3 % Basophils (%) (Auto) 0.4 % Neutrophils # (Auto) 10.9 TH/MM3 Lymphocytes # (Auto) 1.4 TH/MM3 Monocytes # (Auto) 1.5 TH/MM3 Eosinophils # (Auto) 0.2 TH/MM3 Basophils # (Auto) 0.1 TH/MM3 CBC Comment DIFF FINAL Differential Comment Hematology Comments Blood Urea Nitrogen 14 MG/DL Creatinine 0.99 MG/DL Random Glucose 89 MG/DL Calcium Level 8.3 MG/DL Sodium Level 143 MEQ/L Potassium Level 3.6 MEQ/L Chloride Level 107 MEQ/L Carbon Dioxide Level 27.4 MEQ/L Anion Gap 9 MEQ/L Estimat Glomerular Filtration Rate 57 ML/MIN ASSESSMENT/PLAN: oropharyngeal dysphagia secondary stroke -poor oral intake failure to thrive hepatitis c hepatic encephalopathy-resolved abnormal gb-hida negative for cholecystitis Recommendations egd/peg in am if agrees speech therapy consider hep c rx op It was a pleasure seeing Vane Perez. Thank you for this consult. Entered by: Adilene Bazzi MD Jul 07, 2017 18:47
--- NOTE | 2017-07-07 19:26 | HHI.PR ---
Review/Management Diagnosis Left hemisphere cva. cardiomyopathy Plan continue aspirin Diagnosis/Plan: Subjective Subjective Comments No acute events reported Active Medications Current Medications Medications (Trade) Dose Ordered Sig/Rosanna Route Start Time Stop Time Status Last Admin (NS Flush) 2 ml UNSCH PRN IV FLUSH 06/22/17 15:15 (NS Flush) 2 ml BID IV FLUSH 06/22/17 21:00 07/07/17 09:06 (Tears Naturale Opth Soln) 1 drop TID EACH EYE 06/22/17 18:00 07/07/17 17:22 (Zofran Inj) 4 mg Q6H PRN IV 06/22/17 15:15 (Albuterol Neb) 2.5 mg Q2HR NEB PRN INH 06/22/17 15:15 07/06/17 17:50 (Heparin Inj) 5,000 units Q12H SQ 06/22/17 15:15 Future Hold 06/29/17 14:38 Miscellaneous Information 1 Q361D XX 06/22/17 15:15 06/22/17 15:15 (Chlorhexidine 2% Cloth) Taper DAILY@04 TOP 06/23/17 04:00 06/19/18 03:59 06/29/17 04:00 (Chlorhexidine 2% Cloth) 3 pack UNSCH PRN TOP 06/22/17 15:15 (Milk Of Magnesia Liq) 30 ml Q12H PRN PO 06/22/17 15:15 (Senokot) 17.2 mg Q12H PRN PO 06/22/17 15:15 (Dulcolax Supp) 10 mg DAILY PRN RECTAL 06/22/17 15:15 (Lactulose Liq) 30 ml DAILY PRN PO 06/22/17 15:15 (Peridex 0.12% Liq) 15 ml BID@08,20 MT 06/22/17 20:00 07/07/17 07:30 (Trandate Inj) 10 mg Q2H PRN IV 06/22/17 15:45 Nicardipine HCl 25 mg/Sodium Chloride 260 ml @ 52 mls/hr TITRATE PRN IV 06/22/17 16:00 Future Hold (Aspirin Chew) 81 mg DAILY PO 06/23/17 09:00 Future hold 07/06/17 08:26 (D50w (Vial) Inj) 50 ml UNSCH PRN IV PUSH 06/22/17 15:45 (Glucagon Inj) 1 mg UNSCH PRN OTHER 06/22/17 15:45 (Pill Splitter) 1 ea UNSCH PRN OTHER 06/24/17 15:00 Levofloxacin/ Dextrose 150 ml @ 100 mls/hr Q24H IV 06/27/17 14:00 07/07/17 13:43 (Protonix Inj) 40 mg Q12H IV PUSH 06/29/17 08:00 07/07/17 09:05 (Lopressor) 25 mg Q8HR PO 06/29/17 14:00 07/07/17 13:44 (Haldol Inj) 5 mg Q6H PRN IM 06/30/17 12:30 07/01/17 21:23 (Morphine Inj) 2 mg Q3H PRN IV PUSH 06/30/17 12:30 07/07/17 13:44 (Vasotec Inj) 2.5 mg Q6H PRN IV PUSH 06/30/17 21:00 07/05/17 23:43 (Lactulose Liq) 30 ml BID PO 07/01/17 21:00 07/06/17 21:35 (Xifaxan) 550 mg BID PO 07/03/17 09:00 07/06/17 21:35 (Prinivil) 10 mg DAILY PO 07/07/17 09:00 Allergies Allergies Coded Allergies No Known Allergies (Verified06/22/17) Exam I&O / VS 07/07/17 07/07/17 07/08/17 15:00 23:00 07:00 Intake Total 240 ml Balance 240 ml Intake Oral 240 ml # Voids 1 2 # Bowel Movements 1 Vital Signs Date Time Temp Pulse Resp B/P (MAP) Pulse Ox O2 Delivery O2 Flow Rate FiO2 07/07/17 16:00 97.6 90 21 121/83 (96) 94 07/07/17 12:00 98.4 80 21 142/87 (105) 91 07/07/17 08:45 97 Nasal Cannula 3.00 07/07/17 08:00 97.4 73 16 150/92 (111) 100 07/07/17 05:06 98.6 84 18 144/84 (104) 95 07/07/17 00:47 98.9 84 18 144/86 (105) 95 07/06/17 22:34 Nasal Cannula 2.00 07/06/17 22:33 80 07/06/17 20:25 98.6 80 18 143/90 (107) 95 Exam Comments alert, follows complex commands. Has expressive aphasia PERRL, EOM intact, right upper motor neuron CN 7 palsey MOTOR--weaker on RUE than LUE Objective Micro and Labs Date/Time Source Procedure Growth Status 06/25/17 01:40 Blood Peripheral Aerobic Blood Culture - Final NO GROWTH IN 5 DAYS Complete 06/25/17 01:40 Blood Peripheral Anaerobic Blood Culture - Final NO GROWTH IN 5 DAYS Complete 06/25/17 10:00 Sputum Endotracheal Gram Stain - Final Complete 06/25/17 10:00 Sputum Culture - Final Stenotrophomonas Maltophilia Complete 06/22/17 13:30 Urine Catheterized Urine Urine Culture - Final 10-50,000 CFU/ML MIXED GRAM POSITIVE ... Complete Vadim Barr PhD Jul 07, 2017 19:26
[2017-07-08 00:30] VITALS: BP 146/86; PULSE 98; RESP 18; TEMP 97.7; O2SAT 99
[2017-07-08] MEDS: MORPHINE SULFATE 4 MG/ML INJ IV PUSH PRN ×6 (01:30→21:16)
[2017-07-08] MEDS: CHLORHEXIDINE GLUCONATE 2 % 1 PACK (2 CLOTHS) TOP SCH ×2 (04:00)
[2017-07-08] MEDS ORDERED: FUROSEMIDE 40 MG/4 ML VIAL IV PUSH ONE ×2 (04:30)
[2017-07-08 04:37] VITALS: BP 131/82; PULSE 78; RESP 18; TEMP 97.2; O2SAT 99
[2017-07-08] MEDS: METOPROLOL TARTRATE 25 MG TAB PO SCH ×6 (06:00→21:16)
[2017-07-08 08:00] VITALS: BP 152/69; PULSE 98; RESP 21; TEMP 97.2; O2SAT 97
[2017-07-08] MEDS: CHLORHEXIDINE 0.12% (ORAL KIT) 15 ML CUP MT SCH ×4 (08:00→20:00)
[2017-07-08] MEDS: LACTULOSE SYRUP 20 GM/30 ML CUP PO SCH ×4 (09:00→21:16)
[2017-07-08] MEDS: ASPIRIN 81 MG CHEW TAB PO SCH ×2 (09:00)
[2017-07-08] MEDS: SODIUM CHLORIDE 0.9% FLUSH 10 ML FLUSH IV FLUSH SCH ×4 (09:00→21:00)
[2017-07-08] MEDS: ARTIFICIAL TEARS OPTH SOLN 15 ML BTL EACH EYE SCH ×6 (09:00→17:27)
[2017-07-08] MEDS: RIFAXIMIN 550 MG TAB PO SCH ×4 (09:00→21:16)
[2017-07-08] MEDS: LISINOPRIL 10 MG TAB PO SCH ×2 (09:00)
[2017-07-08 09:59] LABS: INTERNATIONAL NORMALIZED RATIO 1.1 RATIO; PROTHROMBIN TIME - PATIENT 11.7 SEC (9.8-11.6)
--- NOTE | 2017-07-08 10:15 | HHI.PR ---
Subjective Remarks Went for PEG placement was assessed later Patient is hungry. PEG tube in place, resume feedings per GI recommendations and also per dietary recommendations. No new motor deficit. Nods to questions. Less agitated. No n/v/d/c. No fever or chills. Objective Vitals Vital Signs Date Time Temp Pulse Resp B/P (MAP) Pulse Ox O2 Delivery O2 Flow Rate FiO2 07/08/17 08:00 97.2 98 21 152/69 (96) 97 07/08/17 04:37 97.2 78 18 131/82 (98) 99 07/08/17 00:30 97.7 98 18 146/86 (106) 99 07/07/17 21:48 92 Nasal Cannula 4.00 07/07/17 20:53 98.6 95 18 139/78 (98) 94 07/07/17 16:00 97.6 90 21 121/83 (96) 94 07/07/17 12:00 98.4 80 21 142/87 (105) 91 I/O 07/07/17 07/07/17 07/07/17 07/08/17 07/08/17 07/08/17 07:00 15:00 23:00 07:00 15:00 23:00 Intake Total 240 ml 240 ml 240 ml Output Total 850 ml Balance -610 ml 240 ml 240 ml Intake Oral 240 ml 240 ml 240 ml Output Urine Total 850 ml # Voids 1 4 2 # Bowel Movements 1 1 Result Diagram: 07/06/17 1151 07/06/17 1151 Imaging Last Impressions Head CT 07/06/17 0000 Signed Impressions: Service Date/Time: Thursday, July 06, 2017 09:07 - CONCLUSION: 1. 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 2. Mucous retention cyst within left maxillary and right sphenoid sinuses. Juan Pablo Huffman MD Abdomen X-Ray 07/01/17 1044 Signed Impressions: Service Date/Time: Saturday, July 01, 2017 10:45 - CONCLUSION: NG as above. Rudy Meng MD FACR Chest X-Ray 06/30/17 0600 Signed Impressions: Service Date/Time: June 04:18 - CONCLUSION: 1. Status post extubation with continued bilateral mild lower lobe airspace disease, likely atelectasis. 2. Stable elevation of the left hemidiaphragm. Gustavo Santoro MD Hepatobiliary Scan Nuclear Medicine 06/28/17 0900 Signed Impressions: Service Date/Time: Wednesday, June 28, 2017 10:17 - CONCLUSION: Nonspecific persistent distention of the gallbladder. No evidence of acute cholecystitis or biliary obstruction. Christopher Gutierrez MD Lung Scan-VQ Nuclear Medicine 06/24/17 0000 Signed Impressions: Service Date/Time: Saturday, June 24, 2017 12:21 - CONCLUSION: 1. Low probability of pulmonary embolism Jose Richard MD Head Magnetic Resonance Angiography 06/24/17 0000 Signed Impressions: Service Date/Time: Saturday, June 24, 2017 13:37 - CONCLUSION: Negative for major branch vessels obstruction in spite of MRI findings. Rudy Meng MD FACR Brain MRI 06/24/17 0000 Signed Impressions: Service Date/Time: Saturday, June 24, 2017 13:37 - CONCLUSION: Findings consistent with acute infarct left sylvian region anteriorly without hemorrhage. Rudy Meng MD FACR Carotid Artery Ultrasound 06/22/17 0000 Signed Impressions: Service Date/Time: Thursday, June 22, 2017 15:56 - CONCLUSION: No evidence of flow-limiting carotid stenosis. Christopher Leonardo MD Abdomen Ultrasound 06/22/17 0000 Signed Impressions: Service Date/Time: Thursday, June 22, 2017 16:30 - CONCLUSION: Distended gallbladder with wall thickening and internal debris. Mild calyceal dilatation involving the kidneys bilaterally Christopher Leonardo MD Objective Remarks GENERAL: Chronically ill-appearing female, cachectic, appearing older than stated age, less agitated, off restraints CARDIOVASCULAR: Normal rate and regular rhythm without murmurs, gallops, or rubs. RESPIRATORY: Some coarse breath sounds bilaterally. Mostly upper airway transmission. Barrel chested. GASTROINTESTINAL: PEG tube in place, dressing c/d/di. Abdomen soft, non-tender, non-distended. Normal active bowel sounds MUSCULOSKELETAL: Very thin extremities. Extremities without cyanosis, or edema. NEURO: Alert to self. Aphasic. However able to nod to questions. A/P Problem List: (1) Acute respiratory failure ICD Code: J96.00 - Acute respiratory failure, unspecified whether with hypoxia or hypercapnia (2) Anxiety ICD Code: F41.9 - Anxiety disorder, unspecified (3) COPD (chronic obstructive pulmonary disease) ICD Code: J44.9 - Chronic obstructive pulmonary disease, unspecified (4) Chronically on benzodiazepine therapy ICD Code: Z79.899 - Other lead generation marketing manager (current) drug therapy (5) Low TSH level ICD Code: R94.6 - Abnormal results of thyroid function studies (6) Elevated troponin ICD Code: R74.8 - Abnormal levels of other serum enzymes (7) Elevated CPK ICD Code: R74.8 - Abnormal levels of other serum enzymes (8) Serum ammonia increased ICD Code: E72.20 - Disorder of urea cycle metabolism, unspecified (9) Elevated transaminase level ICD Code: R74.0 - Nonspecific elevation of levels of transaminase and lactic acid dehydrogenase [LDH] (10) Lactic acidosis ICD Code: E87.2 - Acidosis (11) Hyperglycemia ICD Code: R73.9 - Hyperglycemia, unspecified (12) Tobacco abuse ICD Code: Z72.0 - Tobacco use (13) Tetrahydrocannabinol (THC) use disorder, mild, abuse ICD Code: F12.10 - Cannabis abuse, uncomplicated (14) Acute kidney injury ICD Code: N17.9 - Acute kidney failure, unspecified (15) Thrombocytopenia ICD Code: D69.6 - Thrombocytopenia, unspecified (16) Polycythemia ICD Code: D75.1 - Secondary polycythemia (17) CVA (cerebral vascular accident) ICD Code: I63.9 - Cerebral infarction, unspecified (18) Stroke ICD Code: I63.9 - Cerebral infarction, unspecified Status: Acute (19) Incontinence ICD Code: R32 - Unspecified urinary incontinence (20) Cystitis ICD Code: N30.90 - Cystitis, unspecified without hematuria Assessment and Plan This is a 62-year-old female admitted in respiratory failure. Patient was not able to get out of the chair and was intubated by EMS on the scene. Patient was found to have a CVA. She had an ICU course. She is now extubated and transferred to the hospitalist service. Patient also has GI bleeding. She is not able to pass a swallow evaluation. She needs a feeding tube per GI. Respiratory status is currently stable. 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 Advance diet per ST. Plan for modified barium swallow. Patient pulled NGT out CT head 06/22 revealed 2.5 cm left insular cortex CVA. Carotid Dopplers negative. MRI brain 06/24 revealed left sylvian fissure CVA. MRA brain 06/24 negative for occlusive disease Resume lactulose. 2-D echocardiogram revealed EF 40-45%. Right atrial and right ventricular dilatation. Hemoglobin A1c 6.5/lipids revealed low HDL 38. Low-cholesterol 95. Hold per rectum aspirin given rectal bleeding. Transition to ngt Neurology Dr. Barr PEG feeding tube placed 07/08/17 Hypertension Cardiomyopathy: - Patient evaluated by cardiology. 2-D echo revealed LVEF of 45%. Cardiomyopathy. Continue beta marilou. PRN antihypertensives. Conservative measures per cardiology given the comorbidities. - IV hydralazine for SBP more than 160 Acute hypoxemic respiratory failure-resolved Pneumonia with Stenotrophomonas Mild post extubation stridor Extubated 06/28/17 tolerated well. Mild post extubation stridor appears to have resolved. 5 doses of Decadron ordered Bronchodilator therapy with albuterol/ipratropium aerosols every 6 hours with albuterol nebs every 2 hours. Chest x-ray stable bibasilar airspace disease Levaquin for stenotrophomonas Upper GI bleed Elevated transaminases Elevated ammonia Hypoalbuminemia Hepatitis C antibody positive Rectal bleeding: Protonix gtt changed to 40 mg IV q12. Patient repeatedly failed swallow evaluation. Hep C genotype/viral load pending HIDA scan 06/28 with distended gallbladder-no evidence of acute cholecystitis GI following- planning for PEG placement. Patient pulled NG tube. However patient passed swallow evaluation ( thick liquids, soft diet ), will do calorie count Follow H&H. Hypokalemia, severe. K 2.7. Replace with PO potassium bicarb and also with 40 mEq KCl by IV. Will repeat level tonight and replace if still low. Check Mag lev will give one dose mag ox 500. Monitor lytes and replace as need. Hypernatremia/Hyperchloremia: Improving. Monitor. Might start free water History of incontinence Persaud catheter placed for accurate I's and O's in a critically ill patient. Not stable enough yet to discontinue it. Acute kidney injury Possible secondary to dehydration rhabdo. Continue hydration with D5 quarter normal saline. Urine electrolytes/eosinophils negative Renal ultrasound revealed dilated bilateral calyces. Possibly will need urology evaluation when stabilizes Accurate I's and O's. Thrombocytopenia Monitor CBC daily. Follow trends Stenotrophomonas pneumonia Levaquin 750 mg IV every 24 hours Piperacillin/tazobactam day 7-DC. DCd Vancomycin day #3 Pertinent cultures / - sputum - stenotrophomonas / - blood cultures 2 -no growth 06/22 - UA - gram positive mixed organisms. UA / negative 06/22 - blood cultures 2 - no growth Influenza negative Unable to give acetaminophen secondary to elevated transaminases did unable to give NSAIDs secondary to elevated creatinine PT/OT evaluate and treat Prophylaxis - GI - IV Protonix - DVT - SCD/heparin subcutaneous on hold due to GI bleed. Discussed with the patient, nurse. Discussed with the case management regarding DC plan. SSI pending. no [facility] beds available. Difficult discharge. CM ff Problem Qualifiers (1) COPD (chronic obstructive pulmonary disease): Qualified Codes: J43.9 - Emphysema, unspecified (2) CVA (cerebral vascular accident): Qualified Codes: I63.9 - Cerebral infarction, unspecified (3) Stroke: Qualified Codes: I63.9 - Cerebral infarction, unspecified (4) Incontinence: Qualified Codes: R32 - Unspecified urinary incontinence Iza Browning MD Jul 08, 2017 10:15
[2017-07-08] MEDS ORDERED: PROPOFOL 200 MG/20 ML AMP IV ONE ×2 (11:53)
--- NOTE | 2017-07-08 12:03 | GIPROC ---
[facility] [address] [facility]. [facility], [address] EGD WITH PEG PROCEDURE REPORT EXAM DATE: 07/08/2017 PATIENT NAME: Vane Perez MR#: [id number] BIRTHDATE: 1955 ATTENDING: Adilene Love MD ORDER #: [id number] MANAGER SECURITY: Mamta Warren and Kendy Calle STATUS: inpatient INDICATIONS: The patient is a 62 yr old female here for an EGD with PEG due to dysphagia PROCEDURE PERFORMED: EGD with biopsy EGD with PEG placement MEDICATIONS: None and Per Anesthesia. TOPICAL ANESTHETIC: none CONSENT: The patient understands the risks and benefits of the procedure and understands that these risks include, but are not limited to: sedation, allergic reaction, infection, perforation and/or bleeding. Alternative means of evaluation and treatment include, among others: physical exam, x-rays, and/or surgical intervention. The patient elects to proceed with this endoscopic procedure. medical equipment was checked for proper function. Hand hygiene and appropriate measures for infection prevention was taken. After the risks, benefits and alternatives of the procedure were thoroughly explained, Informed consent was verified, confirmed and timeout was successfully executed by the treatment team. The patient was anesthetized with topical anesthesia and the Pentax EG-2770K endoscope was introduced through the mouth and advanced to the second portion of the duodenum. The instrument was slowly withdrawn as the mucosa was fully examined. Mild gastritis was found esophagitis distal esophagus-biopsy antrum-biopsy The stomach was then inflated with air, and by a combination of transillumination and manual palpation, the site for the gastrostomy tube placement was selected and marked on the anterior abdominal wall. The skin of the anterior abdomen was surgically prepped and draped with sterile towels. Utilizing strict sterile technique, the selected site was then anesthetized with 1% xylocaine by injection into the skin and subcutaneous tissue. A 1 cm incision was made through the skin and subcutaneous tissue, and the needle/cannula assembly was then passed through the abdominal wall and through the anterior wall of the stomach, maintaining visualization with the endoscope. A snare device previously placed through the instrument channel was then opened and placed around the cannula, the needle was removed, and the insertion wire was passed through the cannula and into the stomach lumen. The snare was then loosened from the cannula, and repositioned to snare the insertion wire. The snare was then pulled up to the endoscope distal tip, and the scope was then withdrawn bringing with it the snare and insertion wire. The insertion wire was then released from the snare, and then loop-attached to the gastrostomy tube. Using the "pull technique", the G-tube was then pulled into place by traction on the insertion wire at the abdominal wall end. The G-tube insertion site was then cleansed once again, and the external bolster was placed over the tube to secure it to the abdominal wall. A sterile dressing was then applied, and the procedure terminated. a hiatal hernia The gastroscope was then slowly withdrawn and removed. ADVERSE EVENT: There were no complications. IMPRESSIONS: 1. Mild gastritis was found 2. A hiatal hernia RECOMMENDATIONS: 1. Continue PPI 2. Begin feeding tomorrow REPEAT EXAM: procedure as needed Adilene Love MD eSigned: Adilene Love MD 07/08/2017 12:02 PM cc: PATIENT NAME: Vane Perez MR#: [id number]
--- NOTE | 2017-07-08 12:03 | GIPROC ---
[facility] [address] [facility]. [facility], [address] EGD WITH PEG PROCEDURE REPORT EXAM DATE: 07/08/2017 PATIENT NAME: Vane Perez MR#: [id number] BIRTHDATE: 1955 ATTENDING: Adilene Love MD ORDER #: [id number] ENVIRONMENTAL HEALTH INSPECTOR: Mamta Warren and Kendy Calle STATUS: inpatient INDICATIONS: The patient is a 62 yr old female here for an EGD with PEG due to dysphagia PROCEDURE PERFORMED: EGD with biopsy EGD with PEG placement MEDICATIONS: None and Per Anesthesia. TOPICAL ANESTHETIC: none CONSENT: The patient understands the risks and benefits of the procedure and understands that these risks include, but are not limited to: sedation, allergic reaction, infection, perforation and/or bleeding. Alternative means of evaluation and treatment include, among others: physical exam, x-rays, and/or surgical intervention. The patient elects to proceed with this endoscopic procedure. medical equipment was checked for proper function. Hand hygiene and appropriate measures for infection prevention was taken. After the risks, benefits and alternatives of the procedure were thoroughly explained, Informed consent was verified, confirmed and timeout was successfully executed by the treatment team. The patient was anesthetized with topical anesthesia and the Pentax EG-2770K endoscope was introduced through the mouth and advanced to the second portion of the duodenum. The instrument was slowly withdrawn as the mucosa was fully examined. Mild gastritis was found esophagitis distal esophagus-biopsy antrum-biopsy The stomach was then inflated with air, and by a combination of transillumination and manual palpation, the site for the gastrostomy tube placement was selected and marked on the anterior abdominal wall. The skin of the anterior abdomen was surgically prepped and draped with sterile towels. Utilizing strict sterile technique, the selected site was then anesthetized with 1% xylocaine by injection into the skin and subcutaneous tissue. A 1 cm incision was made through the skin and subcutaneous tissue, and the needle/cannula assembly was then passed through the abdominal wall and through the anterior wall of the stomach, maintaining visualization with the endoscope. A snare device previously placed through the instrument channel was then opened and placed around the cannula, the needle was removed, and the insertion wire was passed through the cannula and into the stomach lumen. The snare was then loosened from the cannula, and repositioned to snare the insertion wire. The snare was then pulled up to the endoscope distal tip, and the scope was then withdrawn bringing with it the snare and insertion wire. The insertion wire was then released from the snare, and then loop-attached to the gastrostomy tube. Using the "pull technique", the G-tube was then pulled into place by traction on the insertion wire at the abdominal wall end. The G-tube insertion site was then cleansed once again, and the external bolster was placed over the tube to secure it to the abdominal wall. A sterile dressing was then applied, and the procedure terminated. a hiatal hernia The gastroscope was then slowly withdrawn and removed. ADVERSE EVENT: There were no complications. IMPRESSIONS: 1. Mild gastritis was found 2. A hiatal hernia RECOMMENDATIONS: 1. Continue PPI 2. Begin feeding tomorrow REPEAT EXAM: procedure as needed Adilene Love MD eSigned: Adilene Love MD 07/08/2017 12:02 PM cc: PATIENT NAME: Vane Perez MR#: [id number]
--- NOTE | 2017-07-08 12:03 | GIPROC ---
[facility] [address] [facility]. [facility], [address] EGD WITH PEG PROCEDURE REPORT EXAM DATE: 07/08/2017 PATIENT NAME: Vane Perez MR#: [id number] BIRTHDATE: 1955 ATTENDING: Adilene Love MD ORDER #: [id number] PILOT PLANT OPERATOR: Mamta Warren and Kendy Calle STATUS: inpatient INDICATIONS: The patient is a 62 yr old female here for an EGD with PEG due to dysphagia PROCEDURE PERFORMED: EGD with biopsy EGD with PEG placement MEDICATIONS: None and Per Anesthesia. TOPICAL ANESTHETIC: none CONSENT: The patient understands the risks and benefits of the procedure and understands that these risks include, but are not limited to: sedation, allergic reaction, infection, perforation and/or bleeding. Alternative means of evaluation and treatment include, among others: physical exam, x-rays, and/or surgical intervention. The patient elects to proceed with this endoscopic procedure. medical equipment was checked for proper function. Hand hygiene and appropriate measures for infection prevention was taken. After the risks, benefits and alternatives of the procedure were thoroughly explained, Informed consent was verified, confirmed and timeout was successfully executed by the treatment team. The patient was anesthetized with topical anesthesia and the Pentax EG-2770K endoscope was introduced through the mouth and advanced to the second portion of the duodenum. The instrument was slowly withdrawn as the mucosa was fully examined. Mild gastritis was found esophagitis distal esophagus-biopsy antrum-biopsy The stomach was then inflated with air, and by a combination of transillumination and manual palpation, the site for the gastrostomy tube placement was selected and marked on the anterior abdominal wall. The skin of the anterior abdomen was surgically prepped and draped with sterile towels. Utilizing strict sterile technique, the selected site was then anesthetized with 1% xylocaine by injection into the skin and subcutaneous tissue. A 1 cm incision was made through the skin and subcutaneous tissue, and the needle/cannula assembly was then passed through the abdominal wall and through the anterior wall of the stomach, maintaining visualization with the endoscope. A snare device previously placed through the instrument channel was then opened and placed around the cannula, the needle was removed, and the insertion wire was passed through the cannula and into the stomach lumen. The snare was then loosened from the cannula, and repositioned to snare the insertion wire. The snare was then pulled up to the endoscope distal tip, and the scope was then withdrawn bringing with it the snare and insertion wire. The insertion wire was then released from the snare, and then loop-attached to the gastrostomy tube. Using the "pull technique", the G-tube was then pulled into place by traction on the insertion wire at the abdominal wall end. The G-tube insertion site was then cleansed once again, and the external bolster was placed over the tube to secure it to the abdominal wall. A sterile dressing was then applied, and the procedure terminated. a hiatal hernia The gastroscope was then slowly withdrawn and removed. ADVERSE EVENT: There were no complications. IMPRESSIONS: 1. Mild gastritis was found 2. A hiatal hernia RECOMMENDATIONS: 1. Continue PPI 2. Begin feeding tomorrow REPEAT EXAM: procedure as needed Adilene Love MD eSigned: Adilene Love MD 07/08/2017 12:02 PM cc: PATIENT NAME: Vane Perez MR#: [id number]
--- NOTE | 2017-07-08 12:12 | HHI.GIFU ---
GI Follow-up Note Consult Follow-up egd/peg placed gastritis, esophagitis, s/p peg ASSESSMENT/PLAN: ok to use peg for medications only today abdominal binder restart po feeding in am start tf in am nutritional consult It was a pleasure seeing Vane Perez. Thank you for this consult. Entered by: Adilene Bazzi MD Jul 08, 2017 12:12
[2017-07-08 12:33] VITALS: BP 161/86; PULSE 72; RESP 20; TEMP 98.4; O2SAT 93
[2017-07-08] MEDS: PANTOPRAZOLE SODIUM 40 MG VIAL IV PUSH SCH ×4 (12:53→21:16)
[2017-07-08] MEDS ORDERED: ceFAZolin INJ 1,000 MG VIAL IV ONE ×2 (13:03)
[2017-07-08] MEDS: LEVOFLOXACIN 750 MG PREMIX INJ 150 ML IV SCH ×2 (15:45)
[2017-07-08 16:00] VITALS: BP 152/85; PULSE 74; RESP 20; TEMP 98.2; O2SAT 95
[2017-07-08 20:00] VITALS: BP 136/75; PULSE 91; RESP 18; TEMP 98; O2SAT 95
[2017-07-09] VITALS (8 sets, daily range): BP systolic 123–140; BP diastolic 80–98; PULSE 77–91; RESP 18–28; TEMP 96.3–98.1; O2SAT 92–99
[2017-07-09] MEDS: MORPHINE SULFATE 4 MG/ML INJ IV PUSH PRN ×10 (02:59→21:35)
[2017-07-09] MEDS: CHLORHEXIDINE GLUCONATE 2 % 1 PACK (2 CLOTHS) TOP SCH ×2 (04:00)
[2017-07-09] MEDS: METOPROLOL TARTRATE 25 MG TAB PO SCH ×6 (05:58→21:37)
[2017-07-09] MEDS: CHLORHEXIDINE 0.12% (ORAL KIT) 15 ML CUP MT SCH ×4 (08:00→20:00)
[2017-07-09] MEDS: LACTULOSE SYRUP 20 GM/30 ML CUP PO SCH ×4 (08:53→21:00)
[2017-07-09] MEDS: PANTOPRAZOLE SODIUM 40 MG VIAL IV PUSH SCH ×4 (08:53→21:38)
[2017-07-09] MEDS: ASPIRIN 81 MG CHEW TAB PO SCH ×2 (08:54)
[2017-07-09] MEDS: SODIUM CHLORIDE 0.9% FLUSH 10 ML FLUSH IV FLUSH SCH ×4 (08:54→21:35)
[2017-07-09] MEDS: LISINOPRIL 10 MG TAB PO SCH ×2 (08:54)
[2017-07-09] MEDS: RIFAXIMIN 550 MG TAB PO SCH ×4 (08:54→21:37)
[2017-07-09] MEDS: ARTIFICIAL TEARS OPTH SOLN 15 ML BTL EACH EYE SCH ×6 (08:56→13:00)
[2017-07-09] MEDS: RESP: ALBUTEROL 2.5 MG/3 ML NEB (PRN) INH ×2 (11:13)
--- NOTE | 2017-07-09 12:54 | HHI.GIFU ---
Subjective Remarks Up in shower. Nurse reports that patient received a thin liquid diet this am and seemed to aspirate with this. ST recommends full liquids with honey thickened liquids. PEG tube site without redness or swelling. (Selma Fontana) Objective Vitals I&O Vital Signs Date Time Temp Pulse Resp B/P (MAP) Pulse Ox O2 Delivery O2 Flow Rate FiO2 07/09/17 11:15 93 Nasal Cannula 4.00 07/09/17 08:00 97.9 83 20 138/98 (111) 95 07/09/17 04:00 97.3 79 18 140/83 (102) 97 07/08/17 20:00 98.0 91 18 136/75 (95) 95 07/08/17 16:00 98.2 74 20 152/85 (107) 95 I/O 07/08/17 07/08/17 07/08/17 07/09/17 07/09/17 07/09/17 07:00 15:00 23:00 07:00 15:00 23:00 Intake Total 200 ml Balance 200 ml Intake Oral 0 ml Other 200 ml # Voids 2 3 3 # Bowel Movements 2 Laboratory Date/Time Source Procedure Growth Status 06/25/17 01:40 Blood Peripheral Aerobic Blood Culture - Final NO GROWTH IN 5 DAYS Complete 06/25/17 01:40 Blood Peripheral Anaerobic Blood Culture - Final NO GROWTH IN 5 DAYS Complete 06/25/17 10:00 Sputum Endotracheal Gram Stain - Final Complete 06/25/17 10:00 Sputum Culture - Final Stenotrophomonas Maltophilia Complete 06/22/17 13:30 Urine Catheterized Urine Urine Culture - Final 10-50,000 CFU/ML MIXED GRAM POSITIVE ... Complete Imaging Last Impressions Head CT 07/06/17 0000 Signed Impressions: Service Date/Time: Thursday, July 06, 2017 09:07 - CONCLUSION: 1. 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 2. Mucous retention cyst within left maxillary and right sphenoid sinuses. Juan Pablo Huffman MD Abdomen X-Ray 07/01/17 1044 Signed Impressions: Service Date/Time: Saturday, July 01, 2017 10:45 - CONCLUSION: NG as above. Rudy Meng MD FACR Chest X-Ray 06/30/17 0600 Signed Impressions: Service Date/Time: June 04:18 - CONCLUSION: 1. Status post extubation with continued bilateral mild lower lobe airspace disease, likely atelectasis. 2. Stable elevation of the left hemidiaphragm. Gustavo Santoro MD Hepatobiliary Scan Nuclear Medicine 06/28/17 0900 Signed Impressions: Service Date/Time: Wednesday, June 28, 2017 10:17 - CONCLUSION: Nonspecific persistent distention of the gallbladder. No evidence of acute cholecystitis or biliary obstruction. Christopher Gutierrez MD Lung Scan-VQ Nuclear Medicine 06/24/17 0000 Signed Impressions: Service Date/Time: Saturday, June 24, 2017 12:21 - CONCLUSION: 1. Low probability of pulmonary embolism Jose Richard MD Head Magnetic Resonance Angiography 06/24/17 0000 Signed Impressions: Service Date/Time: Saturday, June 24, 2017 13:37 - CONCLUSION: Negative for major branch vessels obstruction in spite of MRI findings. Rudy Megn MD FACR Brain MRI 06/24/17 0000 Signed Impressions: Service Date/Time: Saturday, June 24, 2017 13:37 - CONCLUSION: Findings consistent with acute infarct left sylvian region anteriorly without hemorrhage. Rudy Meng MD FACR Carotid Artery Ultrasound 06/22/17 0000 Signed Impressions: Service Date/Time: Thursday, June 22, 2017 15:56 - CONCLUSION: No evidence of flow-limiting carotid stenosis. Christopher Leonardo MD Abdomen Ultrasound 06/22/17 0000 Signed Impressions: Service Date/Time: Thursday, June 22, 2017 16:30 - CONCLUSION: Distended gallbladder with wall thickening and internal debris. Mild calyceal dilatation involving the kidneys bilaterally Christopher Leonardo MD Physical Exam HEENT: Normocephalic; atraumatic; no jaundice. CHEST: Rhonchi CARDIAC: RRR ABDOMEN: Soft, nondistended, nontender; no hepatosplenomegaly; bowel sounds are present in all four quadrants. PEG tube site without redness or swelling EXTREMITIES: No clubbing, cyanosis, or edema. SKIN: Multiple scabs to extremities EXTENSION EDGER: awake, confused (Selma FontanaP) Assessment and Plan Plan ASSESSMENT: - Dysphagia. S/P EGD with peg tube placement (07/08/17)----> gastritis, esophagitis, peg tube placement. Site without redness or swelling. Nurse reports that she received thin liquid tray this am and seemed to aspirate. ST recommends full liquids with honey thickened liquids. PEG site without redness, swelling, drainage. - Esophagitis, Gastritis. PPI - GIB, blood noted in both [place] and [place] last week.. Aspirin and SubQ Heparin have been placed on hold. Not currently having active bleeding. S/P EGD as above. HH stable 9.05/22.3. PPI. - Confusion, hepatic encephalopathy. Ammonia 48. More alert, although remains confused. Cont. Lactulose. Xifaxan. - Distended gallbladder, Abdominal US 06/22/17--CONCLUSION: Distended gallbladder with wall thickening and internal debris. Mild calyceal dilatation involving the kidneys bilaterally. HIDA (06/28/17)---- > Nonspecific persistent distention of the gallbladder. No evidence of acute cholecystitis or biliary obstruction. LFTs trending down. If she has worsening LFTs, pain consider GS evaluation. - Hepatitis C reactive, wuant 3,470,000 Hep C genotype 2b. LFTs trending down - Cardiomyopathy per primary - Stenotrophomonas PNA - per attending. PLAN: - Full liquids diet with honey consistency liquids - Glucerna 1.5 at 40cc/hr - Cont. PPI - Cont. Lactulose - Add Xifaxan - Monitor HH, transfuse as necessary - Supportive care - GI will sign off, please reconsult as needed - Pt seen and examined by Dr. Mojica and myself and this note is written on his behalf (Selma Fontana) Physician Comments Seen and examined with ACCOUNT SERVICES ASSOCIATE, doing well. Start TF and increase rate to goal. Flush peg with water Q shift. (Alyson Mojica MD) Selma Fontana Jul 09, 2017 12:54 Alyson Mojica MD Jul 09, 2017 13:44
[2017-07-09] MEDS: LEVOFLOXACIN 750 MG PREMIX INJ 150 ML IV SCH ×2 (13:28)
--- NOTE | 2017-07-09 13:52 | HHI.PR ---
Subjective Remarks Patient is in the chair , patient is noted more sob and it might have aspirated. Now requiring 4L NC (increase from 2L). No fever or chills. No nausea or vomiting. She appears sob. PEG in place, will start feedings. ST and dietary ff. Objective Vitals Vital Signs Date Time Temp Pulse Resp B/P (MAP) Pulse Ox O2 Delivery O2 Flow Rate FiO2 07/09/17 12:00 97.2 91 28 123/87 (99) 92 07/09/17 11:15 93 Nasal Cannula 4.00 07/09/17 08:00 97.9 83 20 138/98 (111) 95 07/09/17 04:00 97.3 79 18 140/83 (102) 97 07/08/17 20:00 98.0 91 18 136/75 (95) 95 07/08/17 16:00 98.2 74 20 152/85 (107) 95 I/O 07/08/17 07/08/17 07/08/17 07/09/17 07/09/17 07/09/17 07:00 15:00 23:00 07:00 15:00 23:00 Intake Total 200 ml Balance 200 ml Intake Oral 0 ml Other 200 ml # Voids 2 3 3 # Bowel Movements 2 Result Diagram: 07/06/17 1151 07/06/17 1151 Imaging Last Impressions Head CT 07/06/17 0000 Signed Impressions: Service Date/Time: Thursday, July 06, 2017 09:07 - CONCLUSION: 1. 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 2. Mucous retention cyst within left maxillary and right sphenoid sinuses. Juan Pablo Huffman MD Abdomen X-Ray 07/01/17 1044 Signed Impressions: Service Date/Time: Saturday, July 01, 2017 10:45 - CONCLUSION: NG as above. Rudy Meng MD FACR Chest X-Ray 06/30/17 0600 Signed Impressions: Service Date/Time: June 04:18 - CONCLUSION: 1. Status post extubation with continued bilateral mild lower lobe airspace disease, likely atelectasis. 2. Stable elevation of the left hemidiaphragm. Gustavo Santoro MD Hepatobiliary Scan Nuclear Medicine 06/28/17 0900 Signed Impressions: Service Date/Time: Wednesday, June 28, 2017 10:17 - CONCLUSION: Nonspecific persistent distention of the gallbladder. No evidence of acute cholecystitis or biliary obstruction. Christopher Gutierrez MD Lung Scan-VQ Nuclear Medicine 06/24/17 Signed Impressions: Service Date/Time: Saturday, June 24, 2017 12:21 - CONCLUSION: 1. Low probability of pulmonary embolism Jose Richard MD Head Magnetic Resonance Angiography 06/24/17 Signed Impressions: Service Date/Time: Saturday, June 24, 2017 13:37 - CONCLUSION: Negative for major branch vessels obstruction in spite of MRI findings. Rudy Meng MD FACR Brain MRI 06/24/17 Signed Impressions: Service Date/Time: Saturday, June 24, 2017 13:37 - CONCLUSION: Findings consistent with acute infarct left sylvian region anteriorly without hemorrhage. Rudy Meng MD FACR Carotid Artery Ultrasound 06/22/17 Signed Impressions: Service Date/Time: Thursday, June 22, 2017 15:56 - CONCLUSION: No evidence of flow-limiting carotid stenosis. Christopher Leonardo MD Abdomen Ultrasound 06/22/17 Signed Impressions: Service Date/Time: Thursday, June 22, 2017 16:30 - CONCLUSION: Distended gallbladder with wall thickening and internal debris. Mild calyceal dilatation involving the kidneys bilaterally Christopher Leonardo MD Objective Remarks GENERAL: Chronically ill-appearing female, cachectic, appearing older than stated age, less agitated, off restraints, with sob CARDIOVASCULAR: Normal rate and regular rhythm without murmurs, gallops, or rubs. RESPIRATORY: With SOB, + cough. Coarse breath sounds bilaterally. Mostly upper airway transmission. Barrel chested. GASTROINTESTINAL: PEG tube in place, dressing c/d/di. Abdomen soft, non-tender, non-distended. Normal active bowel sounds MUSCULOSKELETAL: Very thin extremities. Extremities without cyanosis, or edema. NEURO: Alert to self. Aphasic. However able to nod to questions. A/P Problem List: (1) Acute respiratory failure ICD Code: J96.00 - Acute respiratory failure, unspecified whether with hypoxia or hypercapnia (2) Anxiety ICD Code: F41.9 - Anxiety disorder, unspecified (3) COPD (chronic obstructive pulmonary disease) ICD Code: J44.9 - Chronic obstructive pulmonary disease, unspecified (4) Chronically on benzodiazepine therapy ICD Code: Z79.899 - Other long term care social worker (current) drug therapy (5) Low TSH level ICD Code: R94.6 - Abnormal results of thyroid function studies (6) Elevated troponin ICD Code: R74.8 - Abnormal levels of other serum enzymes (7) Elevated CPK ICD Code: R74.8 - Abnormal levels of other serum enzymes (8) Serum ammonia increased ICD Code: E72.20 - Disorder of urea cycle metabolism, unspecified (9) Elevated transaminase level ICD Code: R74.0 - Nonspecific elevation of levels of transaminase and lactic acid dehydrogenase [LDH] (10) Lactic acidosis ICD Code: E87.2 - Acidosis (11) Hyperglycemia ICD Code: R73.9 - Hyperglycemia, unspecified (12) Tobacco abuse ICD Code: Z72.0 - Tobacco use (13) Tetrahydrocannabinol (THC) use disorder, mild, abuse ICD Code: F12.10 - Cannabis abuse, uncomplicated (14) Acute kidney injury ICD Code: N17.9 - Acute kidney failure, unspecified (15) Thrombocytopenia ICD Code: D69.6 - Thrombocytopenia, unspecified (16) Polycythemia ICD Code: D75.1 - Secondary polycythemia (17) CVA (cerebral vascular accident) ICD Code: I63.9 - Cerebral infarction, unspecified (18) Stroke ICD Code: I63.9 - Cerebral infarction, unspecified Status: Acute (19) Incontinence ICD Code: R32 - Unspecified urinary incontinence (20) Cystitis ICD Code: N30.90 - Cystitis, unspecified without hematuria Assessment and Plan This is a 62-year-old female admitted in respiratory failure. Patient was not able to get out of the chair and was intubated by EMS on the scene. Patient was found to have a CVA. She had an ICU course. She is now extubated and transferred to the hospitalist service. Patient also has GI bleeding. She is not able to pass a swallow evaluation. She needs a feeding tube per GI. Respiratory status is currently stable. 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 Advance diet per ST. Plan for modified barium swallow. Patient pulled NGT out CT head 06/22 revealed 2.5 cm left insular cortex CVA. Carotid Dopplers negative. MRI brain 06/24 revealed left sylvian fissure CVA. MRA brain 06/24 negative for occlusive disease Resume lactulose. 2-D echocardiogram revealed EF 40-45%. Right atrial and right ventricular dilatation. Hemoglobin A1c 6.5/lipids revealed low HDL 38. Low-cholesterol 95. Hold per rectum aspirin given rectal bleeding. Transition to ngt Neurology Dr. Barr PEG feeding tube placed 07/08/17 start feedings per GI /dietary recommendations However noted with respiratory distress 07/09/17 poss aspiration PNA, CXR , ABG, cbc, bmp, start augmentin, duonebs, IV solumedrol 40 mg once , IS, acapella Acute hypoxemic respiratory failure- resolving however now aspirated and requiring 4L NC Pneumonia with Stenotrophomonas Mild post extubation stridor Extubated 06/28/17 tolerated well. Mild post extubation stridor appears to have resolved. 5 doses of Decadron ordered Bronchodilator therapy with albuterol/ipratropium aerosols every 6 hours with albuterol nebs every 2 hours. Chest x-ray stable bibasilar airspace disease Levaquin for stenotrophomonas 07/09 Noted with respiratory distress 07/09/17 poss aspiration PNA. Do CXR , ABG , CBC, BMP, start augmentin, duonebs, IV solumedrol 40 mg once , IS, acapella ST and dietary ff for diet recommendations. O2 supplement keep O2 sat > 92% Hypertension Cardiomyopathy: - Patient evaluated by cardiology. 2-D echo revealed LVEF of 45%. Cardiomyopathy. Continue beta marilou. PRN antihypertensives. Conservative measures per cardiology given the comorbidities. - IV hydralazine for SBP more than 160 Upper GI bleed Elevated transaminases Elevated ammonia Hypoalbuminemia Hepatitis C antibody positive Rectal bleeding: Protonix gtt changed to 40 mg IV q12. Patient repeatedly failed swallow evaluation. Hep C genotype/viral load pending HIDA scan 06/28 with distended gallbladder-no evidence of acute cholecystitis GI following- planning for PEG placement. Patient pulled NG tube. However patient passed swallow evaluation ( thick liquids, soft diet ), will do calorie count Follow H&H. Hypokalemia, severe. K 2.7. Replace with PO potassium bicarb and also with 40 mEq KCl by IV. Will repeat level tonight and replace if still low. Check Mag lev will give one dose mag ox 500. Monitor lytes and replace as need. Hypernatremia/Hyperchloremia: Improving. Monitor. Might start free water History of incontinence Persaud catheter placed for accurate I's and O's in a critically ill patient. Not stable enough yet to discontinue it. Acute kidney injury Possible secondary to dehydration rhabdo. Continue hydration with D5 quarter normal saline. Urine electrolytes/eosinophils negative Renal ultrasound revealed dilated bilateral calyces. Possibly will need urology evaluation when stabilizes Accurate I's and O's. Thrombocytopenia Monitor CBC daily. Follow trends Stenotrophomonas pneumonia Levaquin 750 mg IV every 24 hours Piperacillin/tazobactam day 7-DC. DCd Vancomycin day #3 Pertinent cultures 06/25 - sputum - stenotrophomonas / - blood cultures 2 -no growth 06/22 - UA - gram positive mixed organisms. UA 9/2 negative 06/22 - blood cultures 2 - no growth Influenza negative Unable to give acetaminophen secondary to elevated transaminases did unable to give NSAIDs secondary to elevated creatinine PT/OT evaluate and treat Prophylaxis - GI - IV Protonix - DVT - SCD/heparin subcutaneous on hold due to GI bleed. Discussed with the patient, nurse. Discussed with the case management regarding DC plan. SSI pending. no jayne beds available. Difficult discharge. CM ff Had PEG tube placed 07/08/17. With acute respiratory distress poss aspiration PNA 07/09/17 Problem Qualifiers (1) COPD (chronic obstructive pulmonary disease): Qualified Codes: J43.9 - Emphysema, unspecified (2) CVA (cerebral vascular accident): Qualified Codes: I63.9 - Cerebral infarction, unspecified (3) Stroke: Qualified Codes: I63.9 - Cerebral infarction, unspecified (4) Incontinence: Qualified Codes: R32 - Unspecified urinary incontinence Iza Browning MD Jul 09, 2017 13:52
[2017-07-09] MEDS ORDERED: methylPREDNISolone SOD SUCC 40 MG/1 ML VIAL IV PUSH ONE ×2 (14:00)
[2017-07-09] MEDS ORDERED: RESP: ALBUTEROL 2.5 MG/IPRATROPIUM 0.5 MG NEB (SCH) NEB ONE ×2 (14:30)
--- NOTE | 2017-07-09 15:14 | RADRPT ---
EXAM DATE/TIME: 07/09/2017 14:04 [facility] COMPARISON: CHEST SINGLE AP, July 08, 2017, 2:14. INDICATIONS : Possible aspiration PNA MEDICAL HISTORY : Chronic obstructive pulmonary disease. SURGICAL HISTORY : Hysterectomy. ENCOUNTER: Subsequent ACUITY: 2 weeks PAIN SCORE: 0/10 LOCATION: Bilateral chest FINDINGS: Mild diffuse interstitial prominence with continued mild bibasilar airspace disease, not significantl y changed from prior exam. Cardiomediastinal contours are stable. Limited exam is unchanged. CONCLUSION: 1. Stable mild central bibasilar patchy airspace disease. 2. No significant interval change. Gustavo Santoro MD on July 09, 2017 at 15:10 Board Certified Radiologist. This report was verified electronically.
[2017-07-09] MEDS: AMOXICILLIN/CLAVULANATE K 875 MG TAB PO SCH ×4 (17:05→21:37)
[2017-07-09 17:14] LABS: AUTOMATED NEUTROPHIL # 8.2 TH/MM3 (1.8-7.7); BASOPHIL % 0.2 % (0.0-2.0); EOSINOPHIL % 0.4 % (0.0-4.0); HEMATOCRIT 26.1 % (35.0-46.0); HEMOGLOBIN 8.6 GM/DL (11.6-15.3); LYMPH % 8.8 % (9.0-44.0); LYMPHOCYTE # 0.9 TH/MM3 (1.0-4.8); MEAN CELL VOLUME 93.4 FL (80.0-100.0); MEAN CORPUSCULAR HEMOGLOBIN 30.7 PG (27.0-34.0); MEAN CORPUSCULAR HGB CONC 32.9 % (32.0-36.0); MONO % 6.5 % (0.0-8.0); MONOCYTE # 0.6 TH/MM3 (0-0.9); NEUT % 84.1 % (16.0-70.0); PLATELET COUNT 246 TH/MM3 (150-450); RED BLOOD COUNT 2.79 MIL/MM3 (4.00-5.30); RED CELL DISTRIBUTION WIDTH 13.3 % (11.6-17.2); WHITE BLOOD COUNT 9.8 TH/MM3 (4.0-11.0)
[2017-07-09 18:11] LABS: BICARBONATE 32.3 MEQ/L (21.0-32.0); CALCIUM 8.5 MG/DL (8.5-10.1); CREATININE 0.89 MG/DL (0.50-1.00)
[2017-07-09] MEDS: RESP: ALBUTEROL 2.5 MG/IPRATROPIUM 0.5 MG NEB (SCH) NEB ×2 (19:18)
[2017-07-09] MEDS: LACTOBACILLUS ACIDOPHILUS 1 GM PACKET PO SCH ×2 (21:37)
[2017-07-10] VITALS (9 sets, daily range): BP systolic 118–147; BP diastolic 69–82; PULSE 74–86; RESP 18–20; TEMP 97.3–98.3; O2SAT 93–99
[2017-07-10] MEDS: MORPHINE SULFATE 4 MG/ML INJ IV PUSH PRN ×12 (01:10→21:14)
[2017-07-10] MEDS: CHLORHEXIDINE GLUCONATE 2 % 1 PACK (2 CLOTHS) TOP SCH ×2 (04:00)
[2017-07-10] MEDS: METOPROLOL TARTRATE 25 MG TAB PO SCH ×6 (06:00→21:13)
[2017-07-10] MEDS: RESP: ALBUTEROL 2.5 MG/IPRATROPIUM 0.5 MG NEB (SCH) NEB ×6 (07:58→19:10)
[2017-07-10] MEDS: CHLORHEXIDINE 0.12% (ORAL KIT) 15 ML CUP MT SCH ×4 (08:00→20:00)
--- NOTE | 2017-07-10 08:47 | HHI.PR ---
Subjective Remarks Patient in bed, says he is coughing less and feels much better . No fever or chills. Less sob. No new motor deficit. Objective Vitals Vital Signs Date Time Temp Pulse Resp B/P (MAP) Pulse Ox O2 Delivery O2 Flow Rate FiO2 07/10/17 08:00 97.4 86 18 119/69 (86) 93 07/10/17 04:00 97.5 80 20 119/76 (90) 97 07/10/17 00:00 97.3 74 18 145/78 (100) 96 07/09/17 20:00 87 07/09/17 20:00 98.1 82 20 128/80 (96) 95 07/09/17 19:18 99 Nasal Cannula 4.00 07/09/17 16:32 81 07/09/17 16:00 96.3 77 22 139/92 (108) 99 07/09/17 12:00 97.2 91 28 123/87 (99) 92 07/09/17 11:15 93 Nasal Cannula 4.00 I/O 07/09/17 07/09/17 07/09/17 07/10/17 07/10/17 07/10/17 07:00 15:00 23:00 07:00 15:00 23:00 Intake Total 704 ml Balance 704 ml Intake Oral 360 ml Tube Feeding 244 ml Other 100 ml # Voids 3 3 1 3 # Bowel Movements 1 2 1 Result Diagram: 07/09/17 1626 07/09/17 1626 Imaging Last Impressions Chest X-Ray 07/09/17 0000 Signed Impressions: Service Date/Time: Sunday, July 09, 2017 14:04 - CONCLUSION: 1. Stable mild central bibasilar patchy airspace disease. 2. No significant interval change. Gustavo Santoro MD Head CT 07/06/17 0000 Signed Impressions: Service Date/Time: Thursday, July 06, 2017 09:07 - CONCLUSION: 1. 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 2. Mucous retention cyst within left maxillary and right sphenoid sinuses. Juan Pablo Huffman MD Abdomen X-Ray 07/01/17 1044 Signed Impressions: Service Date/Time: Saturday, July 01, 2017 10:45 - CONCLUSION: NG as above. Rudy Meng MD FACR Hepatobiliary Scan Nuclear Medicine 06/28/17 0900 Signed Impressions: Service Date/Time: Wednesday, June 28, 2017 10:17 - CONCLUSION: Nonspecific persistent distention of the gallbladder. No evidence of acute cholecystitis or biliary obstruction. Christopher Gutierrez MD Lung Scan-VQ Nuclear Medicine 06/24/17 0000 Signed Impressions: Service Date/Time: Saturday, June 24, 2017 12:21 - CONCLUSION: 1. Low probability of pulmonary embolism Jose Richard MD Head Magnetic Resonance Angiography 06/24/17 0000 Signed Impressions: Service Date/Time: Saturday, June 24, 2017 13:37 - CONCLUSION: Negative for major branch vessels obstruction in spite of MRI findings. Rudy Meng MD FACR Brain MRI 06/24/17 0000 Signed Impressions: Service Date/Time: Saturday, June 24, 2017 13:37 - CONCLUSION: Findings consistent with acute infarct left sylvian region anteriorly without hemorrhage. Rudy Meng MD FACR Carotid Artery Ultrasound 06/22/17 0000 Signed Impressions: Service Date/Time: Thursday, June 22, 2017 15:56 - CONCLUSION: No evidence of flow-limiting carotid stenosis. Christopher Leonardo MD Abdomen Ultrasound 06/22/17 Signed Impressions: Service Date/Time: Thursday, June 22, 2017 16:30 - CONCLUSION: Distended gallbladder with wall thickening and internal debris. Mild calyceal dilatation involving the kidneys bilaterally Christopher Leonardo MD Objective Remarks GENERAL: Chronically ill-appearing female, cachectic, appearing older than stated age, less agitated, off restraints, with sob CARDIOVASCULAR: Normal rate and regular rhythm without murmurs, gallops, or rubs. RESPIRATORY: With SOB, + cough. Coarse breath sounds bilaterally. Mostly upper airway transmission. Barrel chested. GASTROINTESTINAL: PEG tube in place, dressing c/d/di. Abdomen soft, non-tender, non-distended. Normal active bowel sounds MUSCULOSKELETAL: Very thin extremities. Extremities without cyanosis, or edema. NEURO: Alert to self. Aphasic. However able to nod to questions. A/P Problem List: (1) Acute respiratory failure ICD Code: J96.00 - Acute respiratory failure, unspecified whether with hypoxia or hypercapnia (2) Anxiety ICD Code: F41.9 - Anxiety disorder, unspecified (3) COPD (chronic obstructive pulmonary disease) ICD Code: J44.9 - Chronic obstructive pulmonary disease, unspecified (4) Chronically on benzodiazepine therapy ICD Code: Z79.899 - Other longterm (current) drug therapy (5) Low TSH level ICD Code: R94.6 - Abnormal results of thyroid function studies (6) Elevated troponin ICD Code: R74.8 - Abnormal levels of other serum enzymes (7) Elevated CPK ICD Code: R74.8 - Abnormal levels of other serum enzymes (8) Serum ammonia increased ICD Code: E72.20 - Disorder of urea cycle metabolism, unspecified (9) Elevated transaminase level ICD Code: R74.0 - Nonspecific elevation of levels of transaminase and lactic acid dehydrogenase [LDH] (10) Lactic acidosis ICD Code: E87.2 - Acidosis (11) Hyperglycemia ICD Code: R73.9 - Hyperglycemia, unspecified (12) Tobacco abuse ICD Code: Z72.0 - Tobacco use (13) Tetrahydrocannabinol (THC) use disorder, mild, abuse ICD Code: F12.10 - Cannabis abuse, uncomplicated (14) Acute kidney injury ICD Code: N17.9 - Acute kidney failure, unspecified (15) Thrombocytopenia ICD Code: D69.6 - Thrombocytopenia, unspecified (16) Polycythemia ICD Code: D75.1 - Secondary polycythemia (17) CVA (cerebral vascular accident) ICD Code: I63.9 - Cerebral infarction, unspecified (18) Stroke ICD Code: I63.9 - Cerebral infarction, unspecified Status: Acute (19) Incontinence ICD Code: R32 - Unspecified urinary incontinence (20) Cystitis ICD Code: N30.90 - Cystitis, unspecified without hematuria Assessment and Plan This is a 62-year-old female admitted in respiratory failure. Patient was not able to get out of the chair and was intubated by EMS on the scene. Patient was found to have a CVA. She had an ICU course. She is now extubated and transferred to the hospitalist service. Patient also has GI bleeding. She is not able to pass a swallow evaluation. She needs a feeding tube per GI. Respiratory status is currently stable. 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 Chronic benzodiazepine use THC use Hyperammonemia Dysphagia s/p stoke . Advance diet per ST. Plan for modified barium swallow. Patient pulled NGT out CT head 06/22 revealed 2.5 cm left insular cortex CVA. Carotid Dopplers negative. MRI brain 06/24 revealed left sylvian fissure CVA. MRA brain 06/24 negative for occlusive disease Resume lactulose. 2-D echocardiogram revealed EF 40-45%. Right atrial and right ventricular dilatation. Hemoglobin A1c 6.5/lipids revealed low HDL 38. Low-cholesterol 95. Hold per rectum aspirin given rectal bleeding. Transition to ngt Neurology Dr. Barr PEG feeding tube placed 07/08/17 start feedings per GI /dietary recommendations However noted with respiratory distress 07/09/17 poss aspiration PNA, CXR reviewed , ABG, cbc, bmp reviewed no leukocytosis, no signs of systemic infection. Added augmentin, duonebs, IV solumedrol 40 mg once , IS, acapella. Improving. Acute hypoxemic respiratory failure- resolving however now aspirated and requiring more O2. Pneumonia with Stenotrophomonas Mild post extubation stridor Extubated 06/28/17 tolerated well. Mild post extubation stridor appears to have resolved. 5 doses of Decadron ordered Bronchodilator therapy with albuterol/ipratropium aerosols every 6 hours with albuterol nebs every 2 hours. Chest x-ray stable bibasilar airspace disease Levaquin for stenotrophomonas 07/09 Noted with respiratory distress 07/09/17 poss aspiration PNA, CXR reviewed , ABG, cbc, bmp reviewed no leukocytosis, no signs of systemic infection. Added augmentin, duonebs, IV solumedrol 40 mg once , IS, acapella. Improving. ST and dietary ff for diet recommendations. O2 supplement keep O2 sat > 92% Hypertension Cardiomyopathy: - Patient evaluated by cardiology. 2-D echo revealed LVEF of 45%. Cardiomyopathy. Continue beta marilou. PRN antihypertensives. Conservative measures per cardiology given the comorbidities. - IV hydralazine for SBP more than 160 Upper GI bleed Elevated transaminases Elevated ammonia Hypoalbuminemia Hepatitis C antibody positive Rectal bleeding: Protonix gtt changed to 40 mg IV q12. Patient repeatedly failed swallow evaluation. Hep C genotype/viral load pending HIDA scan 06/28 with distended gallbladder-no evidence of acute cholecystitis GI following- s/p PEG placement with tray thickened liquids. Stable h/h Follow H&H Hypokalemia, severe. K 2.6. Replace with potassium by PEG. Check Mag and phos as well,. monitor for refeeding sdr. Hypernatremia/Hyperchloremia: Improving. Monitor. Might start free water if necessary History of incontinence Persaud catheter placed for accurate I's and O's in a critically ill patient. Not stable enough yet to discontinue it. Acute kidney injury Possible secondary to dehydration rhabdo. Continue hydration with D5 quarter normal saline. Urine electrolytes/eosinophils negative Renal ultrasound revealed dilated bilateral calyces. Possibly will need urology evaluation when stabilizes Accurate I's and O's. Thrombocytopenia Monitor CBC daily. Follow trends Stenotrophomonas pneumonia Levaquin 750 mg IV every 24 hours Piperacillin/tazobactam day 7-DC. DCd Vancomycin day #3 Pertinent cultures 06/25 - sputum - stenotrophomonas / - blood cultures 2 -no growth 06/22 - UA - gram positive mixed organisms. UA / negative 06/22 - blood cultures 2 - no growth Influenza negative Unable to give acetaminophen secondary to elevated transaminases did unable to give NSAIDs secondary to elevated creatinine PT/OT evaluate and treat Prophylaxis - GI - IV Protonix - DVT - SCD/heparin subcutaneous on hold due to GI bleed. Discussed with the patient, nurse. Discussed with the case management regarding DC plan. SSI pending. no [facility] beds available. Difficult discharge. CM ff Had PEG tube placed 07/08/17. With acute respiratory distress poss aspiration PNA 07/09/17 , no signs of systemic infection , improving. Now with electrolytes imbalance, replace as need, monitor for refeeding sdr. Problem Qualifiers (1) COPD (chronic obstructive pulmonary disease): Qualified Codes: J43.9 - Emphysema, unspecified (2) CVA (cerebral vascular accident): Qualified Codes: I63.9 - Cerebral infarction, unspecified (3) Stroke: Qualified Codes: I63.9 - Cerebral infarction, unspecified (4) Incontinence: Qualified Codes: R32 - Unspecified urinary incontinence Iza Browning MD Jul 10, 2017 08:47
[2017-07-10] MEDS: ARTIFICIAL TEARS OPTH SOLN 15 ML BTL EACH EYE SCH ×6 (09:00→16:46)
[2017-07-10] MEDS: LACTOBACILLUS ACIDOPHILUS 1 GM PACKET PO SCH ×4 (09:00→21:13)
[2017-07-10] MEDS: LACTULOSE SYRUP 20 GM/30 ML CUP PO SCH ×4 (09:13→21:00)
[2017-07-10] MEDS: AMOXICILLIN/CLAVULANATE K 875 MG TAB PO SCH ×4 (09:13→21:13)
[2017-07-10] MEDS: LISINOPRIL 10 MG TAB PO SCH ×2 (09:14)
[2017-07-10] MEDS: ASPIRIN 81 MG CHEW TAB PO SCH ×2 (09:14)
[2017-07-10] MEDS: RIFAXIMIN 550 MG TAB PO SCH ×4 (09:14→21:22)
[2017-07-10] MEDS: PANTOPRAZOLE SODIUM 40 MG VIAL IV PUSH SCH ×4 (09:15→21:13)
[2017-07-10] MEDS: SODIUM CHLORIDE 0.9% FLUSH 10 ML FLUSH IV FLUSH SCH ×4 (09:15→21:15)
[2017-07-10] MEDS ORDERED: POTASSIUM PHOSPHATE MONOBASIC 500 MG TAB PO ONE ×2 (10:30)
[2017-07-10] MEDS ORDERED: POTASSIUM CHLORIDE 20 MEQ PWD PACKET PO ONE ×2 (10:30)
[2017-07-10] MEDS ORDERED: MAGNESIUM OXIDE 400 MG TAB PO ONE ×2 (10:30)
[2017-07-10 11:10] LABS: BASOPHIL % 0.2 % (0.0-2.0); EOSINOPHIL % 0.2 % (0.0-4.0); HEMATOCRIT 27.3 % (35.0-46.0); LYMPH % 9.6 % (9.0-44.0); LYMPHOCYTE # 0.9 TH/MM3 (1.0-4.8); MEAN CELL VOLUME 93.1 FL (80.0-100.0); MEAN CORPUSCULAR HEMOGLOBIN 30.6 PG (27.0-34.0); MEAN CORPUSCULAR HGB CONC 32.8 % (32.0-36.0); MEAN PLATELET VOLUME 8.7 FL (7.0-11.0); MONO % 7.6 % (0.0-8.0); MONOCYTE # 0.7 TH/MM3 (0-0.9); NEUT % 82.4 % (16.0-70.0); PLATELET COUNT 256 TH/MM3 (150-450); RED BLOOD COUNT 2.94 MIL/MM3 (4.00-5.30); RED CELL DISTRIBUTION WIDTH 13.8 % (11.6-17.2); WHITE BLOOD COUNT 9.7 TH/MM3 (4.0-11.0)
[2017-07-10 11:42] LABS: BICARBONATE 33.5 MEQ/L (21.0-32.0); CALCIUM 8.9 MG/DL (8.5-10.1); CREATININE 0.96 MG/DL (0.50-1.00); MAGNESIUM 2.2 MG/DL (1.5-2.5)
[2017-07-10] MEDS: LEVOFLOXACIN 750 MG PREMIX INJ 150 ML IV SCH ×2 (12:28)
[2017-07-11] VITALS (8 sets, daily range): BP systolic 122–139; BP diastolic 59–86; PULSE 76–84; RESP 18–20; TEMP 97.3–99.1; O2SAT 90–97
[2017-07-11] MEDS: CHLORHEXIDINE GLUCONATE 2 % 1 PACK (2 CLOTHS) TOP SCH ×2 (04:00)
[2017-07-11] MEDS: MORPHINE SULFATE 4 MG/ML INJ IV PUSH PRN ×10 (06:04→22:21)
[2017-07-11] MEDS: METOPROLOL TARTRATE 25 MG TAB PO SCH ×6 (06:04→22:21)
[2017-07-11] MEDS: RESP: ALBUTEROL 2.5 MG/IPRATROPIUM 0.5 MG NEB (SCH) NEB ×6 (07:58→19:58)
[2017-07-11] MEDS: CHLORHEXIDINE 0.12% (ORAL KIT) 15 ML CUP MT SCH ×4 (08:00→20:00)
[2017-07-11 08:16] LABS: AUTOMATED NEUTROPHIL # 8.6 TH/MM3 (1.8-7.7); BASOPHIL % 0.2 % (0.0-2.0); EOSINOPHIL # 0.1 TH/MM3 (0-0.4); EOSINOPHIL % 0.8 % (0.0-4.0); HEMATOCRIT 28.8 % (35.0-46.0); HEMOGLOBIN 9.3 GM/DL (11.6-15.3); LYMPH % 9.2 % (9.0-44.0); LYMPHOCYTE # 0.9 TH/MM3 (1.0-4.8); MEAN CELL VOLUME 93.5 FL (80.0-100.0); MEAN CORPUSCULAR HEMOGLOBIN 30.2 PG (27.0-34.0); MEAN CORPUSCULAR HGB CONC 32.3 % (32.0-36.0); MEAN PLATELET VOLUME 8.9 FL (7.0-11.0); MONO % 5.7 % (0.0-8.0); MONOCYTE # 0.6 TH/MM3 (0-0.9); NEUT % 84.1 % (16.0-70.0); PLATELET COUNT 262 TH/MM3 (150-450); RED BLOOD COUNT 3.08 MIL/MM3 (4.00-5.30); RED CELL DISTRIBUTION WIDTH 13.7 % (11.6-17.2); WHITE BLOOD COUNT 10.2 TH/MM3 (4.0-11.0)
[2017-07-11 08:47] LABS: BICARBONATE 33.1 MEQ/L (21.0-32.0); CALCIUM 7.8 MG/DL (8.5-10.1); CREATININE 0.76 MG/DL (0.50-1.00); MAGNESIUM 2.1 MG/DL (1.5-2.5); PHOSPHORUS 2.1 MG/DL (2.5-4.9)
[2017-07-11] MEDS: ARTIFICIAL TEARS OPTH SOLN 15 ML BTL EACH EYE SCH ×6 (09:00→17:57)
[2017-07-11] MEDS: LACTULOSE SYRUP 20 GM/30 ML CUP PO SCH ×4 (09:00→22:20)
[2017-07-11] MEDS: SODIUM CHLORIDE 0.9% FLUSH 10 ML FLUSH IV FLUSH SCH ×4 (09:00→21:00)
[2017-07-11] MEDS: LISINOPRIL 10 MG TAB PO SCH ×2 (09:00)
--- NOTE | 2017-07-11 09:07 | HHI.PR ---
Subjective Remarks In bed wants cranberry juice, discussed with the nurse. Patient is feeling better today. She is less sob not much cough. No fever or chills. Requires less O2 at this time. Has a good appetite. No fever or chills. No abdominal pain . No diarrhea , nausea or vomiting. Objective Vitals Vital Signs Date Time Temp Pulse Resp B/P (MAP) Pulse Ox O2 Delivery O2 Flow Rate FiO2 07/11/17 04:59 99.1 81 18 136/81 (99) 97 07/11/17 00:51 97.5 81 20 133/71 (91) 96 07/10/17 20:00 76 07/10/17 19:42 79 18 147/76 (99) 97 07/10/17 19:10 99 Nasal Cannula 2.00 07/10/17 16:51 16 07/10/17 16:00 98.3 75 18 118/75 (89) 99 07/10/17 12:00 97.5 84 20 126/82 (97) 94 07/10/17 10:00 98 Nasal Cannula 4.00 I/O 07/10/17 07/10/17 07/10/17 07/11/17 07/11/17 07/11/17 07:00 15:00 23:00 07:00 15:00 23:00 Intake Total 704 ml 1751 ml 559 ml Output Total 3 ml Balance 704 ml 1748 ml 559 ml Intake Oral 360 ml 700 ml IV Total 150 ml Tube Feeding 244 ml 841 ml 359 ml Other 100 ml 60 ml 200 ml Output Urine Total 3 ml # Voids 3 0 1 # Bowel Movements 1 0 1 Result Diagram: 07/11/1725 07/11/17 0725 Imaging Last Impressions Modified Barium Swallow 07/11/17 0000 Signed Impressions: Service Date/Time: Tuesday, July 11, 2017 10:15 - CONCLUSION: Occasional aspiration Rudy Meng MD FACR Chest X-Ray 07/09/17 0000 Signed Impressions: Service Date/Time: Sunday, July 09, 2017 14:04 - CONCLUSION: 1. Stable mild central bibasilar patchy airspace disease. 2. No significant interval change. Gustavo Santoro MD Head CT 07/06/17 0000 Signed Impressions: Service Date/Time: Thursday, July 06, 2017 09:07 - CONCLUSION: 1. 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 2. Mucous retention cyst within left maxillary and right sphenoid sinuses. Juan Pablo Huffman MD Abdomen X-Ray 07/01/17 1044 Signed Impressions: Service Date/Time: Saturday, July 01, 2017 10:45 - CONCLUSION: NG as above. Rudy Meng MD FACR Hepatobiliary Scan Nuclear Medicine 06/28/17 0900 Signed Impressions: Service Date/Time: Wednesday, June 28, 2017 10:17 - CONCLUSION: Nonspecific persistent distention of the gallbladder. No evidence of acute cholecystitis or biliary obstruction. Christopher Gutierrez MD Lung Scan-VQ Nuclear Medicine 06/24/17 0000 Signed Impressions: Service Date/Time: Saturday, June 24, 2017 12:21 - CONCLUSION: 1. Low probability of pulmonary embolism Jose Richard MD Head Magnetic Resonance Angiography 06/24/17 0000 Signed Impressions: Service Date/Time: Saturday, June 24, 2017 13:37 - CONCLUSION: Negative for major branch vessels obstruction in spite of MRI findings. Rudy Meng MD FACR Brain MRI 06/24/17 0000 Signed Impressions: Service Date/Time: Saturday, June 24, 2017 13:37 - CONCLUSION: Findings consistent with acute infarct left sylvian region anteriorly without hemorrhage. Rudy Meng MD FACR Carotid Artery Ultrasound 06/22/17 0000 Signed Impressions: Service Date/Time: Thursday, June 22, 2017 15:56 - CONCLUSION: No evidence of flow-limiting carotid stenosis. Christopher Leonardo MD Abdomen Ultrasound 06/22/17 0000 Signed Impressions: Service Date/Time: Thursday, June 22, 2017 16:30 - CONCLUSION: Distended gallbladder with wall thickening and internal debris. Mild calyceal dilatation involving the kidneys bilaterally Christopher Leonardo MD Objective Remarks GENERAL: Chronically ill-appearing female, cachectic, appearing older than stated age, doesn't appear in acute distress. CARDIOVASCULAR: Normal rate and regular rhythm without murmurs, gallops, or rubs. RESPIRATORY: Less SOB and cough, improving. Coarse breath sounds bilaterally. Mostly upper airway transmission. Barrel chested. GASTROINTESTINAL: PEG tube in place, dressing c/d/di. Abdomen soft, non-tender, non-distended. Normal active bowel sounds MUSCULOSKELETAL: Very thin extremities. Extremities without cyanosis, or edema. NEURO: Alert to self. Aphasic. However able to nod to questions/ writing needs. A/P Problem List: (1) Acute respiratory failure ICD Code: J96.00 - Acute respiratory failure, unspecified whether with hypoxia or hypercapnia (2) Anxiety ICD Code: F41.9 - Anxiety disorder, unspecified (3) COPD (chronic obstructive pulmonary disease) ICD Code: J44.9 - Chronic obstructive pulmonary disease, unspecified (4) Chronically on benzodiazepine therapy ICD Code: Z79.899 - Other termination clerk (current) drug therapy (5) Low TSH level ICD Code: R94.6 - Abnormal results of thyroid function studies (6) Elevated troponin ICD Code: R74.8 - Abnormal levels of other serum enzymes (7) Elevated CPK ICD Code: R74.8 - Abnormal levels of other serum enzymes (8) Serum ammonia increased ICD Code: E72.20 - Disorder of urea cycle metabolism, unspecified (9) Elevated transaminase level ICD Code: R74.0 - Nonspecific elevation of levels of transaminase and lactic acid dehydrogenase [LDH] (10) Lactic acidosis ICD Code: E87.2 - Acidosis (11) Hyperglycemia ICD Code: R73.9 - Hyperglycemia, unspecified (12) Tobacco abuse ICD Code: Z72.0 - Tobacco use (13) Tetrahydrocannabinol (THC) use disorder, mild, abuse ICD Code: F12.10 - Cannabis abuse, uncomplicated (14) Acute kidney injury ICD Code: N17.9 - Acute kidney failure, unspecified (15) Thrombocytopenia ICD Code: D69.6 - Thrombocytopenia, unspecified (16) Polycythemia ICD Code: D75.1 - Secondary polycythemia (17) CVA (cerebral vascular accident) ICD Code: I63.9 - Cerebral infarction, unspecified (18) Stroke ICD Code: I63.9 - Cerebral infarction, unspecified Status: Acute (19) Incontinence ICD Code: R32 - Unspecified urinary incontinence (20) Cystitis ICD Code: N30.90 - Cystitis, unspecified without hematuria Assessment and Plan This is a 62-year-old female admitted in respiratory failure. Patient was not able to get out of the chair and was intubated by EMS on the scene. Patient was found to have a CVA. She had an ICU course. She is now extubated and transferred to the hospitalist service. Patient also has GI bleeding. She is not able to pass a swallow evaluation. She needs a feeding tube per GI. Respiratory status is currently stable. 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 Chronic benzodiazepine use THC use Hyperammonemia Dysphagia s/p stoke . Advance diet per ST. Plan for modified barium swallow. Patient pulled NGT out CT head 06/22 revealed 2.5 cm left insular cortex CVA. Carotid Dopplers negative. MRI brain 06/24 revealed left sylvian fissure CVA. MRA brain 06/24 negative for occlusive disease Resume lactulose. 2-D echocardiogram revealed EF 40-45%. Right atrial and right ventricular dilatation. Hemoglobin A1c 6.5/lipids revealed low HDL 38. Low-cholesterol 95. Hold per rectum aspirin given rectal bleeding. Transition to ngt Neurology Dr. Barr PEG feeding tube placed 07/08/17 start feedings per GI /dietary recommendations However noted with respiratory distress 07/09/17 poss aspiration PNA, CXR reviewed , ABG, cbc, bmp reviewed no leukocytosis, no signs of systemic infection. Added augmentin, duonebs, IV solumedrol 40 mg once , IS, acapella. Improving. Acute hypoxemic respiratory failure- resolving however now aspirated and requiring more O2. Pneumonia with Stenotrophomonas Mild post extubation stridor Extubated 06/28/17 tolerated well. Mild post extubation stridor appears to have resolved. 5 doses of Decadron ordered Bronchodilator therapy with albuterol/ipratropium aerosols every 6 hours with albuterol nebs every 2 hours. Chest x-ray stable bibasilar airspace disease Levaquin for stenotrophomonas 07/09 Noted with respiratory distress 07/09/17 poss aspiration PNA, CXR reviewed , ABG, cbc, bmp reviewed no leukocytosis, no signs of systemic infection. Added augmentin, duonebs, IV solumedrol 40 mg once , IS, acapella. Improving. ST and dietary ff for diet recommendations. O2 supplement keep O2 sat > 92% Hypertension Cardiomyopathy: - Patient evaluated by cardiology. 2-D echo revealed LVEF of 45%. Cardiomyopathy. Continue beta marilou. PRN antihypertensives. Conservative measures per cardiology given the comorbidities. - IV hydralazine for SBP more than 160 Upper GI bleed Elevated transaminases Elevated ammonia Hypoalbuminemia Hepatitis C antibody positive Rectal bleeding: Protonix gtt changed to 40 mg IV q12. Patient repeatedly failed swallow evaluation. Hep C genotype/viral load pending HIDA scan 06/28 with distended gallbladder-no evidence of acute cholecystitis GI following- s/p PEG placement with tray thickened liquids. Stable h/h Follow H&H Hypokalemia. Replace with potassium by PEG. Check Mag and phos as well,. monitor for refeeding sdr. Hypophosphatemia. Refeeding sdr. Monitor and replace K, mag and Phos as indicated. Hypernatremia/Hyperchloremia: Improving. Monitor. Might start free water if necessary History of incontinence Persaud catheter placed for accurate I's and O's in a critically ill patient. Not stable enough yet to discontinue it. Acute kidney injury Possible secondary to dehydration rhabdo. Continue hydration with D5 quarter normal saline. Urine electrolytes/eosinophils negative Renal ultrasound revealed dilated bilateral calyces. Possibly will need urology evaluation when stabilizes Accurate I's and O's. Thrombocytopenia Monitor CBC daily. Follow trends Stenotrophomonas pneumonia Levaquin 750 mg IV every 24 hours Piperacillin/tazobactam day 7-DC. DCd Vancomycin day #3 Pertinent cultures 06/25 - sputum - stenotrophomonas / - blood cultures 2 -no growth 06/22 - UA - gram positive mixed organisms. UA 9/2 negative 06/22 - blood cultures 2 - no growth Influenza negative Unable to give acetaminophen secondary to elevated transaminases did unable to give NSAIDs secondary to elevated creatinine PT/OT evaluate and treat Prophylaxis - GI - IV Protonix - DVT - SCD/heparin subcutaneous on hold due to GI bleed. Discussed with the patient, nurse. Discussed with the case management regarding DC plan. SSI pending. no [facility] beds available. Difficult discharge. CM ff Had PEG tube placed 07/08/17. With acute respiratory distress poss aspiration PNA 07/09/17 , no signs of systemic infection , improving. Now with electrolytes imbalance/refeeding sdr., replace lytes as need. Problem Qualifiers (1) COPD (chronic obstructive pulmonary disease): Qualified Codes: J43.9 - Emphysema, unspecified (2) CVA (cerebral vascular accident): Qualified Codes: I63.9 - Cerebral infarction, unspecified (3) Stroke: Qualified Codes: I63.9 - Cerebral infarction, unspecified (4) Incontinence: Qualified Codes: R32 - Unspecified urinary incontinence Iza Browning MD Jul 11, 2017 09:07
--- NOTE | 2017-07-11 09:56 | RADRPT ---
EXAM DATE/TIME: 07/08/2017 02:14 [facility] COMPARISON: CHEST SINGLE AP, June 24, 2017, 11:39. CHEST SINGLE AP, June 30, 2017, 6:19. INDICATIONS : Shortness of breath MEDICAL HISTORY : Chronic obstructive pulmonary disease. SURGICAL HISTORY : None. ENCOUNTER: Subsequent ACUITY: 3 weeks PAIN SCORE: 7/10 LOCATION: Bilateral chest FINDINGS: A single view of the chest demonstrates the lungs to be symmetrically aerated with resolving left bas ilar consolidation/effusion. Chronic appearing interstitial changes in both lungs the most prominent in the right upper lobe. Heart size is normal. Osseous structures are intact.. CONCLUSION: 1. Improving aeration in the left base with resolving consolidation/effusion. 2. Stable chronic interstitial changes, most prominent in the right upper lung. Momo Pierre MD on July 08, 2017 at 2:49 Board Certified Radiologist. This report was verified electronically.
--- NOTE | 2017-07-11 10:45 | RADRPT ---
EXAM DATE/TIME: 07/11/2017 10:15 [facility] COMPARISON: No previous studies available for comparison. INDICATIONS : Dysphagia FLUORO TIME: 3.2 minutes IMAGE COUNT: 1 CONTRAST: Dose as prescribed by speech pathologist. MEDICAL HISTORY : Stroke. SURGICAL HISTORY : None. ENCOUNTER: Initial ACUITY: 3 weeks PAIN SCORE: 0/10 LOCATION: Bilateral neck FINDINGS: A modified barium swallow was performed with speech pathology. Patient was given a variety of liquids to swallow. Occasional aspiration is seen. For a full detailed report, see report by the speech pathologist. CONCLUSION: Occasional aspiration Rudy Meng MD FACR on July 11, 2017 at 10:39 Board Certified Radiologist. This report was verified electronically.
[2017-07-11] MEDS: PANTOPRAZOLE SODIUM 40 MG VIAL IV PUSH SCH ×4 (10:55→20:00)
[2017-07-11] MEDS: AMOXICILLIN/CLAVULANATE K 875 MG TAB PO SCH ×4 (10:57→22:20)
[2017-07-11] MEDS: RIFAXIMIN 550 MG TAB PO SCH ×4 (10:57→22:21)
[2017-07-11] MEDS: LACTOBACILLUS ACIDOPHILUS 1 GM PACKET PO SCH ×4 (10:57→21:00)
[2017-07-11] MEDS: ASPIRIN 81 MG CHEW TAB PO SCH ×2 (10:57)
[2017-07-11] MEDS ORDERED: POTASSIUM PHOSPHATE MONOBASIC 500 MG TAB PO ONE ×2 (11:15)
[2017-07-11] MEDS: LEVOFLOXACIN 750 MG PREMIX INJ 150 ML IV SCH ×2 (13:53)
[2017-07-12] VITALS (12 sets, daily range): BP systolic 109–138; BP diastolic 62–88; PULSE 68–85; RESP 18–20; TEMP 97.8–98.3; O2SAT 93–98
[2017-07-12] MEDS: CHLORHEXIDINE GLUCONATE 2 % 1 PACK (2 CLOTHS) TOP SCH ×2 (04:00)
[2017-07-12] MEDS: MORPHINE SULFATE 4 MG/ML INJ IV PUSH PRN ×10 (04:41→20:39)
[2017-07-12] MEDS: METOPROLOL TARTRATE 25 MG TAB PO SCH ×6 (05:14→20:39)
[2017-07-12] MEDS: CHLORHEXIDINE 0.12% (ORAL KIT) 15 ML CUP MT SCH ×4 (08:00→20:00)
[2017-07-12] MEDS: RESP: ALBUTEROL 2.5 MG/IPRATROPIUM 0.5 MG NEB (SCH) NEB ×6 (08:05→19:47)
[2017-07-12] MEDS: ARTIFICIAL TEARS OPTH SOLN 15 ML BTL EACH EYE SCH ×6 (09:00→17:51)
[2017-07-12] MEDS: SODIUM CHLORIDE 0.9% FLUSH 10 ML FLUSH IV FLUSH SCH ×4 (09:34→20:39)
[2017-07-12] MEDS: PANTOPRAZOLE SODIUM 40 MG VIAL IV PUSH SCH ×4 (09:35→20:38)
[2017-07-12] MEDS: RIFAXIMIN 550 MG TAB PO SCH ×4 (09:36→20:39)
[2017-07-12] MEDS: ASPIRIN 81 MG CHEW TAB PO SCH ×2 (09:36)
[2017-07-12] MEDS: AMOXICILLIN/CLAVULANATE K 875 MG TAB PO SCH ×4 (09:36→20:39)
[2017-07-12] MEDS: LISINOPRIL 10 MG TAB PO SCH ×2 (09:36)
[2017-07-12] MEDS: LACTOBACILLUS ACIDOPHILUS 1 GM PACKET PO SCH ×4 (09:36→20:39)
[2017-07-12] MEDS: LACTULOSE SYRUP 20 GM/30 ML CUP PO SCH ×4 (09:36→20:38)
--- NOTE | 2017-07-12 10:32 | HHI.PR ---
Subjective Remarks Patient is NPO as barium swallow eval is abnormal, patient also poss aspirated. No fever or chills. Less cough. She is satting well on 2 L NC at this time. No n /v/d/c./ Objective Vitals Vital Signs Date Time Temp Pulse Resp B/P (MAP) Pulse Ox O2 Delivery O2 Flow Rate FiO2 07/12/17 08:10 93 Nasal Cannula 2.00 07/12/17 08:00 97.9 75 20 128/79 (95) 94 07/12/17 04:00 98.3 85 18 125/78 (94) 97 07/12/17 00:00 98.0 82 18 128/62 (84) 94 07/11/17 20:00 98.0 84 18 126/59 (81) 92 07/11/17 19:58 96 21 07/11/17 19:00 76 07/11/17 16:00 97.3 83 20 122/86 (98) 90 07/11/17 12:00 97.4 84 20 139/77 (97) 92 I/O 07/11/17 07/11/17 07/11/17 07/12/17 07/12/17 07/12/17 07:00 15:00 23:00 07:00 15:00 23:00 Intake Total 559 ml Balance 559 ml Tube Feeding 359 ml Other 200 ml # Voids 3 Result Diagram: 07/11/17 0725 07/11/17 0725 Imaging Last Impressions Modified Barium Swallow 07/11/17 0000 Signed Impressions: Service Date/Time: Tuesday, July 11, 2017 10:15 - CONCLUSION: Occasional aspiration Rudy Meng MD FACR Chest X-Ray 07/09/17 0000 Signed Impressions: Service Date/Time: Sunday, July 09, 2017 14:04 - CONCLUSION: 1. Stable mild central bibasilar patchy airspace disease. 2. No significant interval change. Gustavo Santoro MD Head CT 07/06/17 0000 Signed Impressions: Service Date/Time: Thursday, July 06, 2017 09:07 - CONCLUSION: 1. 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 2. Mucous retention cyst within left maxillary and right sphenoid sinuses. Juan Pablo Huffman MD Abdomen X-Ray 07/01/17 1044 Signed Impressions: Service Date/Time: Saturday, July 01, 2017 10:45 - CONCLUSION: NG as above. Rudy Meng MD FACR Hepatobiliary Scan Nuclear Medicine 06/28/17 0900 Signed Impressions: Service Date/Time: Wednesday, June 28, 2017 10:17 - CONCLUSION: Nonspecific persistent distention of the gallbladder. No evidence of acute cholecystitis or biliary obstruction. Christopher Gutierrez MD Lung Scan-VQ Nuclear Medicine 06/24/17 0000 Signed Impressions: Service Date/Time: Saturday, June 24, 2017 12:21 - CONCLUSION: 1. Low probability of pulmonary embolism Jose Richard MD Head Magnetic Resonance Angiography 06/24/17 0000 Signed Impressions: Service Date/Time: Saturday, June 24, 2017 13:37 - CONCLUSION: Negative for major branch vessels obstruction in spite of MRI findings. Rudy Meng MD FACR Brain MRI 06/24/17 0000 Signed Impressions: Service Date/Time: Saturday, June 24, 2017 13:37 - CONCLUSION: Findings consistent with acute infarct left sylvian region anteriorly without hemorrhage. Rudy Meng MD FACR Carotid Artery Ultrasound 06/22/17 0000 Signed Impressions: Service Date/Time: Thursday, June 22, 2017 15:56 - CONCLUSION: No evidence of flow-limiting carotid stenosis. Christopher Leonardo MD Abdomen Ultrasound 06/22/17 0000 Signed Impressions: Service Date/Time: Thursday, June 22, 2017 16:30 - CONCLUSION: Distended gallbladder with wall thickening and internal debris. Mild calyceal dilatation involving the kidneys bilaterally Christopher Leonardo MD Objective Remarks GENERAL: Chronically ill-appearing female, cachectic, appearing older than stated age, doesn't appear in acute distress. CARDIOVASCULAR: Normal rate and regular rhythm without murmurs, gallops, or rubs. RESPIRATORY: Less SOB and cough, improving. Coarse breath sounds bilaterally. Mostly upper airway transmission. Barrel chested. GASTROINTESTINAL: PEG tube in place, dressing c/d/di. Abdomen soft, non-tender, non-distended. Normal active bowel sounds MUSCULOSKELETAL: Very thin extremities. Extremities without cyanosis, or edema. NEURO: Alert to self. Aphasic. However able to nod to questions/ writing needs. A/P Problem List: (1) Acute respiratory failure ICD Code: J96.00 - Acute respiratory failure, unspecified whether with hypoxia or hypercapnia (2) Anxiety ICD Code: F41.9 - Anxiety disorder, unspecified (3) COPD (chronic obstructive pulmonary disease) ICD Code: J44.9 - Chronic obstructive pulmonary disease, unspecified (4) Chronically on benzodiazepine therapy ICD Code: Z79.899 - Other nursing home (current) drug therapy (5) Low TSH level ICD Code: R94.6 - Abnormal results of thyroid function studies (6) Elevated troponin ICD Code: R74.8 - Abnormal levels of other serum enzymes (7) Elevated CPK ICD Code: R74.8 - Abnormal levels of other serum enzymes (8) Serum ammonia increased ICD Code: E72.20 - Disorder of urea cycle metabolism, unspecified (9) Elevated transaminase level ICD Code: R74.0 - Nonspecific elevation of levels of transaminase and lactic acid dehydrogenase [LDH] (10) Lactic acidosis ICD Code: E87.2 - Acidosis (11) Hyperglycemia ICD Code: R73.9 - Hyperglycemia, unspecified (12) Tobacco abuse ICD Code: Z72.0 - Tobacco use (13) Tetrahydrocannabinol (THC) use disorder, mild, abuse ICD Code: F12.10 - Cannabis abuse, uncomplicated (14) Acute kidney injury ICD Code: N17.9 - Acute kidney failure, unspecified (15) Thrombocytopenia ICD Code: D69.6 - Thrombocytopenia, unspecified (16) Polycythemia ICD Code: D75.1 - Secondary polycythemia (17) CVA (cerebral vascular accident) ICD Code: I63.9 - Cerebral infarction, unspecified (18) Stroke ICD Code: I63.9 - Cerebral infarction, unspecified Status: Acute (19) Incontinence ICD Code: R32 - Unspecified urinary incontinence (20) Cystitis ICD Code: N30.90 - Cystitis, unspecified without hematuria Assessment and Plan This is a 62-year-old female admitted in respiratory failure. Patient was not able to get out of the chair and was intubated by EMS on the scene. Patient was found to have a CVA. She had an ICU course. She is now extubated and transferred to the hospitalist service. Patient also has GI bleeding. She is not able to pass a swallow evaluation. She needs a feeding tube per GI. Respiratory status is currently stable. 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 Chronic benzodiazepine use THC use Hyperammonemia Dysphagia s/p stoke . Advance diet per ST. Plan for modified barium swallow. Patient pulled NGT out CT head 06/22 revealed 2.5 cm left insular cortex CVA. Carotid Dopplers negative. MRI brain 06/24 revealed left sylvian fissure CVA. MRA brain 06/24 negative for occlusive disease Resume lactulose. 2-D echocardiogram revealed EF 40-45%. Right atrial and right ventricular dilatation. Hemoglobin A1c 6.5/lipids revealed low HDL 38. Low-cholesterol 95. Hold per rectum aspirin given rectal bleeding. Transition to ngt Neurology Dr. Barr PEG feeding tube placed 07/08/17 start feedings per GI /dietary recommendations However noted with respiratory distress 07/09/17 poss aspiration PNA, CXR reviewed , ABG, cbc, bmp reviewed no leukocytosis, no signs of systemic infection. Added augmentin, duonebs, IV solumedrol 40 mg once , IS, acapella. Improving. Acute hypoxemic respiratory failure- resolving however now aspirated and requiring more O2. Pneumonia with Stenotrophomonas Mild post extubation stridor Extubated 06/28/17 tolerated well. Mild post extubation stridor appears to have resolved. Received 5 doses of Decadron Bronchodilator therapy with albuterol/ipratropium aerosols every 6 hours with albuterol nebs every 2 hours. Chest x-ray stable bibasilar airspace disease Levaquin for stenotrophomonas 07/09 Noted with respiratory distress 07/09/17 poss aspiration PNA, CXR reviewed , ABG, cbc, bmp reviewed no leukocytosis, no signs of systemic infection. Added augmentin, duonebs, IV solumedrol 40 mg once , IS, acapella. Improving. ST and dietary ff for diet recommendations. O2 supplement keep O2 sat > 92% Hypertension Cardiomyopathy: - Patient evaluated by cardiology. 2-D echo revealed LVEF of 45%. Cardiomyopathy. Continue beta marilou. PRN antihypertensives. Conservative measures per cardiology given the comorbidities. - IV hydralazine for SBP more than 160 Upper GI bleed Elevated transaminases Elevated ammonia Hypoalbuminemia Hepatitis C antibody positive Rectal bleeding: Protonix gtt changed to 40 mg IV q12. Patient repeatedly failed swallow evaluation. Hep C genotype/viral load pending HIDA scan 06/28 with distended gallbladder-no evidence of acute cholecystitis GI following- s/p PEG placement DC tray thickened liquids as patient aspirated and modified barium swallow abn. Stable h/h Follow H&H Hypokalemia. Replace with potassium by PEG. Check Mag and phos as well,. monitor for refeeding sdr. Hypophosphatemia. Refeeding sdr. Monitor and replace K, mag and Phos as indicated. Hypernatremia/Hyperchloremia: Improving. Monitor. Might start free water if necessary History of incontinence Persaud catheter placed for accurate I's and O's in a critically ill patient. Not stable enough yet to discontinue it. Acute kidney injury Possible secondary to dehydration rhabdo. Continue hydration with D5 quarter normal saline. Urine electrolytes/eosinophils negative Renal ultrasound revealed dilated bilateral calyces. Possibly will need urology evaluation when stabilizes Accurate I's and O's. Thrombocytopenia Monitor CBC daily. Follow trends Stenotrophomonas pneumonia Levaquin 750 mg IV every 24 hours Piperacillin/tazobactam day 7-DC. DCd Vancomycin day #3 Pertinent cultures / - sputum - stenotrophomonas / - blood cultures 2 -no growth 06/22 - UA - gram positive mixed organisms. UA / negative 06/22 - blood cultures 2 - no growth Influenza negative Unable to give acetaminophen secondary to elevated transaminases did unable to give NSAIDs secondary to elevated creatinine PT/OT evaluate and treat Prophylaxis - GI - IV Protonix - DVT - SCD/heparin subcutaneous on hold due to GI bleed. Discussed with the patient, nurse. Discussed with the case management regarding DC plan. SSI pending. no [facility] available. Difficult discharge. CM ff Had PEG tube placed 07/08/17. With acute respiratory distress poss aspiration PNA 07/09/17 , no signs of systemic infection , improving. Now with electrolytes imbalance/refeeding sdr., replace lytes as need. Problem Qualifiers (1) COPD (chronic obstructive pulmonary disease): Qualified Codes: J43.9 - Emphysema, unspecified (2) CVA (cerebral vascular accident): Qualified Codes: I63.9 - Cerebral infarction, unspecified (3) Stroke: Qualified Codes: I63.9 - Cerebral infarction, unspecified (4) Incontinence: Qualified Codes: R32 - Unspecified urinary incontinence Iza Browning MD Jul 12, 2017 10:32
[2017-07-12] MEDS: LEVOFLOXACIN 750 MG PREMIX INJ 150 ML IV SCH ×2 (14:02)
[2017-07-13] VITALS (8 sets, daily range): BP systolic 109–127; BP diastolic 72–76; PULSE 68–85; RESP 17–18; TEMP 97.2–98.3; O2SAT 94–97
[2017-07-13] MEDS: MORPHINE SULFATE 4 MG/ML INJ IV PUSH PRN ×12 (01:00→20:56)
[2017-07-13] MEDS: CHLORHEXIDINE GLUCONATE 2 % 1 PACK (2 CLOTHS) TOP SCH ×2 (04:00)
[2017-07-13] MEDS: METOPROLOL TARTRATE 25 MG TAB PO SCH ×6 (05:56→21:08)
[2017-07-13] MEDS: CHLORHEXIDINE 0.12% (ORAL KIT) 15 ML CUP MT SCH ×4 (08:00→20:00)
[2017-07-13] MEDS: RESP: ALBUTEROL 2.5 MG/IPRATROPIUM 0.5 MG NEB (SCH) NEB ×2 (08:44)
[2017-07-13] MEDS: SODIUM CHLORIDE 0.9% FLUSH 10 ML FLUSH IV FLUSH SCH ×4 (09:00→20:55)
[2017-07-13] MEDS: PANTOPRAZOLE SODIUM 40 MG VIAL IV PUSH SCH ×4 (09:14→20:55)
[2017-07-13] MEDS: LACTULOSE SYRUP 20 GM/30 ML CUP PO SCH ×6 (09:14→20:54)
[2017-07-13] MEDS: AMOXICILLIN/CLAVULANATE K 875 MG TAB PO SCH ×4 (09:15→20:54)
[2017-07-13] MEDS: LISINOPRIL 10 MG TAB PO SCH ×2 (09:15)
[2017-07-13] MEDS: RIFAXIMIN 550 MG TAB PO SCH ×4 (09:15→21:08)
[2017-07-13] MEDS: ASPIRIN 81 MG CHEW TAB PO SCH ×2 (09:37)
[2017-07-13 09:39] LABS: BASOPHIL % 0.6 % (0.0-2.0); EOSINOPHIL # 0.1 TH/MM3 (0-0.4); EOSINOPHIL % 1.4 % (0.0-4.0); HEMATOCRIT 27.7 % (35.0-46.0); HEMOGLOBIN 9.2 GM/DL (11.6-15.3); LYMPH % 13.5 % (9.0-44.0); MEAN CELL VOLUME 92.8 FL (80.0-100.0); MEAN CORPUSCULAR HEMOGLOBIN 30.8 PG (27.0-34.0); MEAN CORPUSCULAR HGB CONC 33.2 % (32.0-36.0); MEAN PLATELET VOLUME 8.8 FL (7.0-11.0); MONO % 6.3 % (0.0-8.0); MONOCYTE # 0.5 TH/MM3 (0-0.9); NEUT % 78.2 % (16.0-70.0); PLATELET COUNT 195 TH/MM3 (150-450); RED BLOOD COUNT 2.98 MIL/MM3 (4.00-5.30); RED CELL DISTRIBUTION WIDTH 13.3 % (11.6-17.2); WHITE BLOOD COUNT 7.6 TH/MM3 (4.0-11.0)
[2017-07-13 09:59] LABS: BICARBONATE 33.2 MEQ/L (21.0-32.0); CALCIUM 8.3 MG/DL (8.5-10.1); CREATININE 0.67 MG/DL (0.50-1.00); MAGNESIUM 2.2 MG/DL (1.5-2.5)
[2017-07-13] MEDS: LACTOBACILLUS ACIDOPHILUS 1 GM PACKET PO SCH ×4 (10:02→20:57)
[2017-07-13 10:14] LABS: PHOSPHORUS 2.9 MG/DL (2.5-4.9)
--- NOTE | 2017-07-13 11:54 | HHI.PR ---
Subjective Remarks In the chair, doesn't appear in distress. No n/v/d/c. No abdominal pain. Sattign well on 2L NC. Less cough. No fevr ro chills./ No wheezing. Objective Vitals Vital Signs Date Time Temp Pulse Resp B/P (MAP) Pulse Ox O2 Delivery O2 Flow Rate FiO2 07/13/17 08:45 97 Nasal Cannula 2.00 07/13/17 08:00 97.7 68 18 121/72 (88) 97 07/13/17 04:00 98.3 74 18 122/76 (91) 95 07/13/17 00:00 97.2 73 18 109/73 (85) 97 07/12/17 19:50 97 Nasal Cannula 2.00 07/12/17 19:30 97.8 84 18 138/88 (105) 97 07/12/17 19:00 79 07/12/17 17:00 81 07/12/17 16:00 98.0 80 20 109/71 (84) 98 07/12/17 13:37 76 07/12/17 12:00 98.2 75 20 125/77 (93) 97 I/O 07/12/17 07/12/17 07/12/17 07/13/17 07/13/17 07/13/17 07:00 15:00 23:00 07:00 15:00 23:00 Intake Total 120 ml 690 ml Balance 120 ml 690 ml Intake Oral 120 ml IV Total 150 ml Tube Feeding 500 ml Tube Irrigant 40 ml # Voids 3 4 # Bowel Movements 3 Result Diagram: 07/13/1790407/13/17904 Imaging Last Impressions Modified Barium Swallow 07/11/17 0000 Signed Impressions: Service Date/Time: Tuesday, July 11, 2017 10:15 - CONCLUSION: Occasional aspiration Rudy Meng MD FACR Chest X-Ray 07/09/17 0000 Signed Impressions: Service Date/Time: Sunday, July 09, 2017 14:04 - CONCLUSION: 1. Stable mild central bibasilar patchy airspace disease. 2. No significant interval change. Gustavo Santoro MD Head CT 07/06/17 0000 Signed Impressions: Service Date/Time: Thursday, July 06, 2017 09:07 - CONCLUSION: 1. 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 2. Mucous retention cyst within left maxillary and right sphenoid sinuses. Juan Pablo Huffman MD Abdomen X-Ray 07/01/17 1044 Signed Impressions: Service Date/Time: Saturday, July 01, 2017 10:45 - CONCLUSION: NG as above. Rudy Meng MD FACR Hepatobiliary Scan Nuclear Medicine 06/28/17 0900 Signed Impressions: Service Date/Time: Wednesday, June 28, 2017 10:17 - CONCLUSION: Nonspecific persistent distention of the gallbladder. No evidence of acute cholecystitis or biliary obstruction. Christopher Gutierrez MD Lung Scan-VQ Nuclear Medicine 06/24/17 0000 Signed Impressions: Service Date/Time: Saturday, June 24, 2017 12:21 - CONCLUSION: 1. Low probability of pulmonary embolism Jose Richard MD Head Magnetic Resonance Angiography 06/24/17 0000 Signed Impressions: Service Date/Time: Saturday, June 24, 2017 13:37 - CONCLUSION: Negative for major branch vessels obstruction in spite of MRI findings. Rudy Megn MD FACR Brain MRI 06/24/17 0000 Signed Impressions: Service Date/Time: Saturday, June 24, 2017 13:37 - CONCLUSION: Findings consistent with acute infarct left sylvian region anteriorly without hemorrhage. Rudy Meng MD FACR Carotid Artery Ultrasound 06/22/17 0000 Signed Impressions: Service Date/Time: Thursday, June 22, 2017 15:56 - CONCLUSION: No evidence of flow-limiting carotid stenosis. Christopher Leonardo MD Abdomen Ultrasound 06/22/17 0000 Signed Impressions: Service Date/Time: Thursday, June 22, 2017 16:30 - CONCLUSION: Distended gallbladder with wall thickening and internal debris. Mild calyceal dilatation involving the kidneys bilaterally Christopher Leonardo MD Objective Remarks GENERAL: Chronically ill-appearing female, cachectic, appearing older than stated age, doesn't appear in acute distress. CARDIOVASCULAR: Normal rate and regular rhythm without murmurs, gallops, or rubs. RESPIRATORY: Less SOB and cough, improving. Coarse breath sounds bilaterally. Mostly upper airway transmission. Barrel chested. GASTROINTESTINAL: PEG tube in place, dressing c/d/di. Abdomen soft, non-tender, non-distended. Normal active bowel sounds MUSCULOSKELETAL: Very thin extremities. Extremities without cyanosis, or edema. NEURO: Alert to self. Aphasic. However able to nod to questions/ writing needs. A/P Problem List: (1) Acute respiratory failure ICD Code: J96.00 - Acute respiratory failure, unspecified whether with hypoxia or hypercapnia (2) Anxiety ICD Code: F41.9 - Anxiety disorder, unspecified (3) COPD (chronic obstructive pulmonary disease) ICD Code: J44.9 - Chronic obstructive pulmonary disease, unspecified (4) Chronically on benzodiazepine therapy ICD Code: Z79.899 - Other [employer] (current) drug therapy (5) Low TSH level ICD Code: R94.6 - Abnormal results of thyroid function studies (6) Elevated troponin ICD Code: R74.8 - Abnormal levels of other serum enzymes (7) Elevated CPK ICD Code: R74.8 - Abnormal levels of other serum enzymes (8) Serum ammonia increased ICD Code: E72.20 - Disorder of urea cycle metabolism, unspecified (9) Elevated transaminase level ICD Code: R74.0 - Nonspecific elevation of levels of transaminase and lactic acid dehydrogenase [LDH] (10) Lactic acidosis ICD Code: E87.2 - Acidosis (11) Hyperglycemia ICD Code: R73.9 - Hyperglycemia, unspecified (12) Tobacco abuse ICD Code: Z72.0 - Tobacco use (13) Tetrahydrocannabinol (THC) use disorder, mild, abuse ICD Code: F12.10 - Cannabis abuse, uncomplicated (14) Acute kidney injury ICD Code: N17.9 - Acute kidney failure, unspecified (15) Thrombocytopenia ICD Code: D69.6 - Thrombocytopenia, unspecified (16) Polycythemia ICD Code: D75.1 - Secondary polycythemia (17) CVA (cerebral vascular accident) ICD Code: I63.9 - Cerebral infarction, unspecified (18) Stroke ICD Code: I63.9 - Cerebral infarction, unspecified Status: Acute (19) Incontinence ICD Code: R32 - Unspecified urinary incontinence (20) Cystitis ICD Code: N30.90 - Cystitis, unspecified without hematuria Assessment and Plan This is a 62-year-old female admitted in respiratory failure. Patient was not able to get out of the chair and was intubated by EMS on the scene. Patient was found to have a CVA. She had an ICU course. She is now extubated and transferred to the hospitalist service. Patient also has GI bleeding. She is not able to pass a swallow evaluation. She needs a feeding tube per GI. Respiratory status is currently stable. 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 Chronic benzodiazepine use THC use Hyperammonemia Dysphagia s/p stoke . Advance diet per ST. Plan for modified barium swallow. Patient pulled NGT out CT head 06/22 revealed 2.5 cm left insular cortex CVA. Carotid Dopplers negative. MRI brain 06/24 revealed left sylvian fissure CVA. MRA brain 06/24 negative for occlusive disease Resume lactulose. 2-D echocardiogram revealed EF 40-45%. Right atrial and right ventricular dilatation. Hemoglobin A1c 6.5/lipids revealed low HDL 38. Low-cholesterol 95. Hold per rectum aspirin given rectal bleeding. Transition to ngt Neurology Dr. Barr PEG feeding tube placed 07/08/17 start feedings per GI /dietary recommendations However noted with respiratory distress 07/09/17 poss aspiration PNA, CXR reviewed , ABG, cbc, bmp reviewed no leukocytosis, no signs of systemic infection. Added augmentin, duonebs, IV solumedrol 40 mg once , IS, acapella. Improving. Acute hypoxemic respiratory failure- resolving however now aspirated and requiring more O2. Pneumonia with Stenotrophomonas Mild post extubation stridor Extubated 06/28/17 tolerated well. Mild post extubation stridor appears to have resolved. Received 5 doses of Decadron Bronchodilator therapy with albuterol/ipratropium aerosols every 6 hours with albuterol nebs every 2 hours. Chest x-ray stable bibasilar airspace disease Levaquin for stenotrophomonas 07/09 Noted with respiratory distress 07/09/17 poss aspiration PNA, CXR reviewed , ABG, cbc, bmp reviewed no leukocytosis, no signs of systemic infection. Added augmentin, duonebs, IV solumedrol 40 mg once , IS, acapella. Improving. ST and dietary ff for diet recommendations. O2 supplement keep O2 sat > 92% Hypertension Cardiomyopathy: - Patient evaluated by cardiology. 2-D echo revealed LVEF of 45%. Cardiomyopathy. Continue beta marilou. PRN antihypertensives. Conservative measures per cardiology given the comorbidities. - IV hydralazine for SBP more than 160 Upper GI bleed Elevated transaminases Elevated ammonia Hypoalbuminemia Hepatitis C antibody positive Rectal bleeding: Protonix gtt changed to 40 mg IV q12. Patient repeatedly failed swallow evaluation. Hep C genotype/viral load pending HIDA scan 06/28 with distended gallbladder-no evidence of acute cholecystitis GI following- s/p PEG placement DC tray thickened liquids as patient aspirated and modified barium swallow abn. Stable h/h Follow H&H Hypokalemia. Replace with potassium by PEG. Check Mag and phos as well,. monitor for refeeding sdr. Hypophosphatemia. Refeeding sdr. Monitor and replace K, mag and Phos as indicated. Hypernatremia/Hyperchloremia: Improving. Monitor. Might start free water if necessary History of incontinence Persaud catheter placed for accurate I's and O's in a critically ill patient. Not stable enough yet to discontinue it. Acute kidney injury Possible secondary to dehydration rhabdo. Continue hydration with D5 quarter normal saline. Urine electrolytes/eosinophils negative Renal ultrasound revealed dilated bilateral calyces. Possibly will need urology evaluation when stabilizes Accurate I's and O's. Thrombocytopenia Monitor CBC daily. Follow trends Stenotrophomonas pneumonia Levaquin 750 mg IV every 24 hours Piperacillin/tazobactam day 7-DC. DCd Vancomycin day #3 Pertinent cultures 06/25 - sputum - stenotrophomonas / - blood cultures 2 -no growth 06/22 - UA - gram positive mixed organisms. UA /2 negative 06/22 - blood cultures 2 - no growth Influenza negative Unable to give acetaminophen secondary to elevated transaminases did unable to give NSAIDs secondary to elevated creatinine PT/OT evaluate and treat Prophylaxis - GI - IV Protonix - DVT - SCD/heparin subcutaneous on hold due to GI bleed. Discussed with the patient, nurse. Discussed with the case management regarding DC plan. SSI pending. no [facility] beds available. Difficult discharge. CM ff Had PEG tube placed 07/08/17. With acute respiratory distress poss aspiration PNA 07/09/17 , no signs of systemic infection , improving. Now with electrolytes imbalance/refeeding sdr., replace lytes as need. Problem Qualifiers (1) COPD (chronic obstructive pulmonary disease): Qualified Codes: J43.9 - Emphysema, unspecified (2) CVA (cerebral vascular accident): Qualified Codes: I63.9 - Cerebral infarction, unspecified (3) Stroke: Qualified Codes: I63.9 - Cerebral infarction, unspecified (4) Incontinence: Qualified Codes: R32 - Unspecified urinary incontinence Iza Browning MD Jul 13, 2017 11:54
[2017-07-13] MEDS ORDERED: POTASSIUM CHLORIDE 25 MEQ EFFERVESCENT TAB PO ONE ×2 (12:00)
[2017-07-13] MEDS: LEVOFLOXACIN 750 MG PREMIX INJ 150 ML IV SCH ×2 (14:45)
[2017-07-13] MEDS: ARTIFICIAL TEARS OPTH SOLN 15 ML BTL EACH EYE SCH ×4 (17:42→18:00)
[2017-07-14] VITALS (9 sets, daily range): BP systolic 101–168; BP diastolic 57–81; PULSE 73–84; RESP 17–20; TEMP 97–98.5; O2SAT 92–99
[2017-07-14] MEDS: MORPHINE SULFATE 4 MG/ML INJ IV PUSH PRN ×14 (00:22→21:16)
[2017-07-14] MEDS: CHLORHEXIDINE GLUCONATE 2 % 1 PACK (2 CLOTHS) TOP SCH ×2 (03:43)
[2017-07-14] MEDS: METOPROLOL TARTRATE 25 MG TAB PO SCH ×6 (05:58→21:15)
[2017-07-14] MEDS: AMOXICILLIN/CLAVULANATE K 875 MG TAB PO SCH ×4 (08:34→21:15)
[2017-07-14] MEDS: PANTOPRAZOLE SODIUM 40 MG VIAL IV PUSH SCH ×4 (08:34→21:15)
[2017-07-14] MEDS: LACTOBACILLUS ACIDOPHILUS 1 GM PACKET PO SCH ×4 (08:34→21:15)
[2017-07-14] MEDS: LACTULOSE SYRUP 20 GM/30 ML CUP PO SCH ×4 (08:34→21:15)
[2017-07-14] MEDS: LISINOPRIL 10 MG TAB PO SCH ×2 (08:34)
[2017-07-14] MEDS: ASPIRIN 81 MG CHEW TAB PO SCH ×2 (08:34)
[2017-07-14] MEDS: RIFAXIMIN 550 MG TAB PO SCH ×4 (08:44→21:15)
[2017-07-14] MEDS: SODIUM CHLORIDE 0.9% FLUSH 10 ML FLUSH IV FLUSH SCH ×4 (08:50→21:16)
--- NOTE | 2017-07-14 09:20 | HHI.PR ---
Subjective Remarks In the chair., says she is hungry, no fever or chills. She is breathing better. No much cough. Satting well on 2L NC. Objective Vitals Vital Signs Date Time Temp Pulse Resp B/P (MAP) Pulse Ox O2 Delivery O2 Flow Rate FiO2 07/14/17 08:48 98.2 73 18 123/80 (94) 92 07/14/17 06:00 75 121/74 (90) 07/14/17 04:00 97.3 75 18 124/81 (95) 99 07/14/17 00:00 97.0 84 18 123/57 (79) 94 07/13/17 20:02 73 07/13/17 20:00 97.5 81 18 121/75 (90) 94 07/13/17 17:11 98.2 85 17 127/76 (93) 95 07/13/17 12:00 98.3 77 18 123/74 (90) 96 I/O 07/13/17 07/13/17 07/13/17 07/14/17 07/14/17 07/14/17 06:59 14:59 22:59 06:59 14:59 22:59 Output Total 6 ml Balance -6 ml Output Urine Total 6 ml # Voids 4 1 4 # Bowel Movements 2 Result Diagram: 07/13/17 0905 07/13/17 0905 Imaging Last Impressions Modified Barium Swallow 07/11/17 0000 Signed Impressions: Service Date/Time: Tuesday, July 11, 2017 10:15 - CONCLUSION: Occasional aspiration Rudy Meng MD FACR Chest X-Ray 07/09/17 0000 Signed Impressions: Service Date/Time: Sunday, July 09, 2017 14:04 - CONCLUSION: 1. Stable mild central bibasilar patchy airspace disease. 2. No significant interval change. Gustavo Santoro MD Head CT 07/06/17 0000 Signed Impressions: Service Date/Time: Thursday, July 06, 2017 09:07 - CONCLUSION: 1. 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 2. Mucous retention cyst within left maxillary and right sphenoid sinuses. Juan Pablo Huffman MD Abdomen X-Ray 07/01/17 1044 Signed Impressions: Service Date/Time: Saturday, July 01, 2017 10:45 - CONCLUSION: NG as above. Rudy eMng MD FACR Hepatobiliary Scan Nuclear Medicine 06/28/17 0900 Signed Impressions: Service Date/Time: Wednesday, June 28, 2017 10:17 - CONCLUSION: Nonspecific persistent distention of the gallbladder. No evidence of acute cholecystitis or biliary obstruction. Christopher Gutierrez MD Lung Scan-VQ Nuclear Medicine 06/24/17 0000 Signed Impressions: Service Date/Time: Saturday, June 24, 2017 12:21 - CONCLUSION: 1. Low probability of pulmonary embolism Jose Richard MD Head Magnetic Resonance Angiography 06/24/17 0000 Signed Impressions: Service Date/Time: Saturday, June 24, 2017 13:37 - CONCLUSION: Negative for major branch vessels obstruction in spite of MRI findings. Rudy Meng MD FACR Brain MRI 06/24/17 0000 Signed Impressions: Service Date/Time: Saturday, June 24, 2017 13:37 - CONCLUSION: Findings consistent with acute infarct left sylvian region anteriorly without hemorrhage. Rudy Meng MD FACR Carotid Artery Ultrasound 06/22/17 0000 Signed Impressions: Service Date/Time: Thursday, June 22, 2017 15:56 - CONCLUSION: No evidence of flow-limiting carotid stenosis. Christopher Leonardo MD Abdomen Ultrasound 06/22/17 0000 Signed Impressions: Service Date/Time: Thursday, June 22, 2017 16:30 - CONCLUSION: Distended gallbladder with wall thickening and internal debris. Mild calyceal dilatation involving the kidneys bilaterally Christopher Leonardo MD Objective Remarks GENERAL: Chronically ill-appearing female, cachectic, appearing older than stated age, doesn't appear in acute distress. CARDIOVASCULAR: Normal rate and regular rhythm without murmurs, gallops, or rubs. RESPIRATORY: Less SOB and cough, improving. Coarse breath sounds bilaterally. Mostly upper airway transmission. Barrel chested. GASTROINTESTINAL: PEG tube in place, dressing c/d/di. Abdomen soft, non-tender, non-distended. Normal active bowel sounds MUSCULOSKELETAL: Very thin extremities. Extremities without cyanosis, or edema. NEURO: Alert to self. Aphasic. However able to nod to questions/ writing needs. 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 (5) Low TSH level ICD Code: R94.6 - Abnormal results of thyroid function studies (6) Elevated troponin ICD Code: R74.8 - Abnormal levels of other serum enzymes (7) Elevated CPK ICD Code: R74.8 - Abnormal levels of other serum enzymes (8) Serum ammonia increased ICD Code: E72.20 - Disorder of urea cycle metabolism, unspecified (9) Elevated transaminase level ICD Code: R74.0 - Nonspecific elevation of levels of transaminase and lactic acid dehydrogenase [LDH] (10) Lactic acidosis ICD Code: E87.2 - Acidosis (11) Hyperglycemia ICD Code: R73.9 - Hyperglycemia, unspecified (12) Tobacco abuse ICD Code: Z72.0 - Tobacco use (13) Tetrahydrocannabinol (THC) use disorder, mild, abuse ICD Code: F12.10 - Cannabis abuse, uncomplicated (14) Acute kidney injury ICD Code: N17.9 - Acute kidney failure, unspecified (15) Thrombocytopenia ICD Code: D69.6 - Thrombocytopenia, unspecified (16) Polycythemia ICD Code: D75.1 - Secondary polycythemia (17) CVA (cerebral vascular accident) ICD Code: I63.9 - Cerebral infarction, unspecified (18) Stroke ICD Code: I63.9 - Cerebral infarction, unspecified Status: Acute (19) Incontinence ICD Code: R32 - Unspecified urinary incontinence (20) Cystitis ICD Code: N30.90 - Cystitis, unspecified without hematuria Assessment and Plan This is a 62-year-old female admitted in respiratory failure. Patient was not able to get out of the chair and was intubated by EMS on the scene. Patient was found to have a CVA. She had an ICU course. She is now extubated and transferred to the hospitalist service. Patient also has GI bleeding. She is not able to pass a swallow evaluation. She needs a feeding tube per GI. Respiratory status is currently stable. 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 Chronic benzodiazepine use THC use Hyperammonemia Dysphagia s/p stoke . Advance diet per ST. Plan for modified barium swallow. Patient pulled NGT out CT head 06/22 revealed 2.5 cm left insular cortex CVA. Carotid Dopplers negative. MRI brain 06/24 revealed left sylvian fissure CVA. MRA brain 06/24 negative for occlusive disease Resume lactulose. 2-D echocardiogram revealed EF 40-45%. Right atrial and right ventricular dilatation. Hemoglobin A1c 6.5/lipids revealed low HDL 38. Low-cholesterol 95. Hold per rectum aspirin given rectal bleeding. Transition to ngt Neurology Dr. Barr PEG feeding tube placed 07/08/17 start feedings per GI /dietary recommendations However noted with respiratory distress 07/09/17 poss aspiration PNA, CXR reviewed , ABG, cbc, bmp reviewed no leukocytosis, no signs of systemic infection. Added augmentin, duonebs, IV solumedrol 40 mg once , IS, acapella. Improving. Acute hypoxemic respiratory failure- resolving however now aspirated and requiring more O2. Pneumonia with Stenotrophomonas Mild post extubation stridor Extubated 06/28/17 tolerated well. Mild post extubation stridor appears to have resolved. Received 5 doses of Decadron Bronchodilator therapy with albuterol/ipratropium aerosols every 6 hours with albuterol nebs every 2 hours. Chest x-ray stable bibasilar airspace disease Levaquin for stenotrophomonas 07/09 Noted with respiratory distress 07/09/17 poss aspiration PNA, CXR reviewed , ABG, cbc, bmp reviewed no leukocytosis, no signs of systemic infection. Added augmentin, duonebs, IV solumedrol 40 mg once , IS, acapella. Improving. ST and dietary ff for diet recommendations. O2 supplement keep O2 sat > 92% Hypertension Cardiomyopathy: - Patient evaluated by cardiology. 2-D echo revealed LVEF of 45%. Cardiomyopathy. Continue beta marilou. PRN antihypertensives. Conservative measures per cardiology given the comorbidities. - IV hydralazine for SBP more than 160 Upper GI bleed Elevated transaminases Elevated ammonia Hypoalbuminemia Hepatitis C antibody positive Rectal bleeding: Protonix gtt changed to 40 mg IV q12. Patient repeatedly failed swallow evaluation. Hep C genotype/viral load pending HIDA scan 06/28 with distended gallbladder-no evidence of acute cholecystitis GI following- s/p PEG placement DC tray thickened liquids as patient aspirated and modified barium swallow abn. Stable h/h Follow H&H Hypokalemia. Replace with potassium by PEG. Check Mag and phos as well,. monitor for refeeding sdr. Hypophosphatemia. Refeeding sdr. Monitor and replace K, mag and Phos as indicated. Hypernatremia/Hyperchloremia: Improving. Monitor. Might start free water if necessary History of incontinence Persaud catheter placed for accurate I's and O's in a critically ill patient. Not stable enough yet to discontinue it. Acute kidney injury Possible secondary to dehydration rhabdo. Continue hydration with D5 quarter normal saline. Urine electrolytes/eosinophils negative Renal ultrasound revealed dilated bilateral calyces. Possibly will need urology evaluation when stabilizes Accurate I's and O's. Thrombocytopenia Monitor CBC daily. Follow trends Stenotrophomonas pneumonia Levaquin 750 mg IV every 24 hours Piperacillin/tazobactam day 7-DC. DCd Vancomycin day #3 Pertinent cultures 06/25 - sputum - stenotrophomonas / - blood cultures 2 -no growth 06/22 - UA - gram positive mixed organisms. UA / negative 06/22 - blood cultures 2 - no growth Influenza negative Unable to give acetaminophen secondary to elevated transaminases did unable to give NSAIDs secondary to elevated creatinine PT/OT evaluate and treat Prophylaxis - GI - IV Protonix - DVT - SCD/heparin subcutaneous on hold due to GI bleed. Discussed with the patient, nurse. Discussed with the case management regarding DC plan. SSI pending. no [facility] beds available. Difficult discharge. CM ff Had PEG tube placed 07/08/17. With acute respiratory distress poss aspiration PNA 07/09/17 , no signs of systemic infection , improving. Now with electrolytes imbalance/refeeding sdr., replace lytes as need. Problem Qualifiers (1) COPD (chronic obstructive pulmonary disease): Qualified Codes: J43.9 - Emphysema, unspecified (2) CVA (cerebral vascular accident): Qualified Codes: I63.9 - Cerebral infarction, unspecified (3) Stroke: Qualified Codes: I63.9 - Cerebral infarction, unspecified (4) Incontinence: Qualified Codes: R32 - Unspecified urinary incontinence Iza Browning MD Jul 14, 2017 09:20
[2017-07-14] MEDS: ENALAPRILAT 2.5 MG/2 ML VIAL IV PUSH PRN ×2 (12:10)
[2017-07-14] MEDS: LEVOFLOXACIN 750 MG PREMIX INJ 150 ML IV SCH ×2 (14:00)
[2017-07-14] MEDS: ARTIFICIAL TEARS OPTH SOLN 15 ML BTL EACH EYE SCH ×2 (14:00)
[2017-07-14] MEDS ORDERED: hydrALAZINE HCL 10 MG TAB PO PRN ×2 (15:45)
[2017-07-14] MEDS: CHLORHEXIDINE 0.12% (ORAL KIT) 15 ML CUP MT SCH ×2 (20:00)
[2017-07-15] VITALS (9 sets, daily range): BP systolic 110–136; BP diastolic 64–91; PULSE 70–87; RESP 17–20; TEMP 97.9–98.8; O2SAT 92–98
[2017-07-15] MEDS: MORPHINE SULFATE 4 MG/ML INJ IV PUSH PRN ×14 (00:20→22:33)
[2017-07-15] MEDS: CHLORHEXIDINE GLUCONATE 2 % 1 PACK (2 CLOTHS) TOP SCH ×2 (04:00)
[2017-07-15] MEDS: METOPROLOL TARTRATE 25 MG TAB PO SCH ×6 (06:25→22:32)
[2017-07-15] MEDS: CHLORHEXIDINE 0.12% (ORAL KIT) 15 ML CUP MT SCH ×4 (08:00→20:00)
[2017-07-15] MEDS: LACTULOSE SYRUP 20 GM/30 ML CUP PO SCH ×4 (09:00→21:00)
[2017-07-15] MEDS: SODIUM CHLORIDE 0.9% FLUSH 10 ML FLUSH IV FLUSH SCH ×4 (09:00→21:00)
[2017-07-15] MEDS: LACTOBACILLUS ACIDOPHILUS 1 GM PACKET PO SCH ×4 (09:00→21:00)
[2017-07-15] MEDS: ARTIFICIAL TEARS OPTH SOLN 15 ML BTL EACH EYE SCH ×8 (09:00→17:52)
[2017-07-15] MEDS: RIFAXIMIN 550 MG TAB PO SCH ×4 (09:44→22:32)
[2017-07-15] MEDS: LISINOPRIL 10 MG TAB PO SCH ×2 (09:44)
[2017-07-15] MEDS: AMOXICILLIN/CLAVULANATE K 875 MG TAB PO SCH ×4 (09:44→22:32)
[2017-07-15] MEDS: ASPIRIN 81 MG CHEW TAB PO SCH ×2 (09:44)
[2017-07-15] MEDS: PANTOPRAZOLE SODIUM 40 MG VIAL IV PUSH SCH ×4 (09:45→22:39)
--- NOTE | 2017-07-15 11:29 | HHI.PR ---
Subjective Remarks Patient in the chair, appears in nad. Not cough. Breathing better. No fever p chills. Tolerates feedings well. No fever or chills. Objective Vitals Vital Signs Date Time Temp Pulse Resp B/P (MAP) Pulse Ox O2 Delivery O2 Flow Rate FiO2 07/15/17 11:00 70 07/15/17 08:19 98.0 75 18 113/77 (89) 95 07/15/17 06:29 83 135/91 (106) 07/15/17 04:16 97.9 76 17 119/77 (91) 97 07/15/17 00:58 98.1 74 17 136/77 (96) 95 07/14/17 20:30 98.2 81 17 114/73 (87) 94 07/14/17 20:05 78 07/14/17 15:41 98.5 78 20 101/65 (77) 95 07/14/17 14:24 80 07/14/17 12:17 97.8 74 20 168/74 (105) 93 I/O 07/14/17 07/14/17 07/14/17 07/15/17 07/15/17 07/15/17 07:00 15:00 23:00 07:00 15:00 23:00 Intake Total 0 ml 240 ml Balance 0 ml 240 ml Intake Oral 0 ml 240 ml # Voids 4 7 # Bowel Movements 1 Result Diagram: 07/13/1790407/13/17 0905 Imaging Last Impressions Modified Barium Swallow 07/11/17 0000 Signed Impressions: Service Date/Time: Tuesday, July 11, 2017 10:15 - CONCLUSION: Occasional aspiration Rudy Meng MD FACR Chest X-Ray 07/09/17 0000 Signed Impressions: Service Date/Time: Sunday, July 09, 2017 14:04 - CONCLUSION: 1. Stable mild central bibasilar patchy airspace disease. 2. No significant interval change. Gustavo Santoro MD Head CT 07/06/17 0000 Signed Impressions: Service Date/Time: Thursday, July 06, 2017 09:07 - CONCLUSION: 1. 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 2. Mucous retention cyst within left maxillary and right sphenoid sinuses. Juan Pablo Huffman MD Abdomen X-Ray 07/01/17 1044 Signed Impressions: Service Date/Time: Saturday, July 01, 2017 10:45 - CONCLUSION: NG as above. Rudy Meng MD FACR Hepatobiliary Scan Nuclear Medicine 06/28/17 0900 Signed Impressions: Service Date/Time: Wednesday, June 28, 2017 10:17 - CONCLUSION: Nonspecific persistent distention of the gallbladder. No evidence of acute cholecystitis or biliary obstruction. Christopher Gutierrez MD Lung Scan-VQ Nuclear Medicine 06/24/17 0000 Signed Impressions: Service Date/Time: Saturday, June 24, 2017 12:21 - CONCLUSION: 1. Low probability of pulmonary embolism Jose Richard MD Head Magnetic Resonance Angiography 06/24/17 0000 Signed Impressions: Service Date/Time: Saturday, June 24, 2017 13:37 - CONCLUSION: Negative for major branch vessels obstruction in spite of MRI findings. Rudy Meng MD FACR Brain MRI 06/24/17 0000 Signed Impressions: Service Date/Time: Saturday, June 24, 2017 13:37 - CONCLUSION: Findings consistent with acute infarct left sylvian region anteriorly without hemorrhage. Rudy Meng MD FACR Carotid Artery Ultrasound 06/22/17 0000 Signed Impressions: Service Date/Time: Thursday, June 22, 2017 15:56 - CONCLUSION: No evidence of flow-limiting carotid stenosis. Christopher Leonardo MD Abdomen Ultrasound 06/22/17 0000 Signed Impressions: Service Date/Time: Thursday, June 22, 2017 16:30 - CONCLUSION: Distended gallbladder with wall thickening and internal debris. Mild calyceal dilatation involving the kidneys bilaterally Christopher Leonardo MD Objective Remarks GENERAL: Chronically ill-appearing female, cachectic, appearing older than stated age, doesn't appear in acute distress. CARDIOVASCULAR: Normal rate and regular rhythm without murmurs, gallops, or rubs. RESPIRATORY: Less SOB and cough, improving. Coarse breath sounds bilaterally. Mostly upper airway transmission. Barrel chested. GASTROINTESTINAL: PEG tube in place, dressing c/d/di. Abdomen soft, non-tender, non-distended. Normal active bowel sounds MUSCULOSKELETAL: Very thin extremities. Extremities without cyanosis, or edema. NEURO: Alert to self. Aphasic. However able to nod to questions/ writing needs. A/P Problem List: (1) Acute respiratory failure ICD Code: J96.00 - Acute respiratory failure, unspecified whether with hypoxia or hypercapnia (2) Anxiety ICD Code: F41.9 - Anxiety disorder, unspecified (3) COPD (chronic obstructive pulmonary disease) ICD Code: J44.9 - Chronic obstructive pulmonary disease, unspecified (4) Chronically on benzodiazepine therapy ICD Code: Z79.899 - Other skilled nursing (current) drug therapy (5) Low TSH level ICD Code: R94.6 - Abnormal results of thyroid function studies (6) Elevated troponin ICD Code: R74.8 - Abnormal levels of other serum enzymes (7) Elevated CPK ICD Code: R74.8 - Abnormal levels of other serum enzymes (8) Serum ammonia increased ICD Code: E72.20 - Disorder of urea cycle metabolism, unspecified (9) Elevated transaminase level ICD Code: R74.0 - Nonspecific elevation of levels of transaminase and lactic acid dehydrogenase [LDH] (10) Lactic acidosis ICD Code: E87.2 - Acidosis (11) Hyperglycemia ICD Code: R73.9 - Hyperglycemia, unspecified (12) Tobacco abuse ICD Code: Z72.0 - Tobacco use (13) Tetrahydrocannabinol (THC) use disorder, mild, abuse ICD Code: F12.10 - Cannabis abuse, uncomplicated (14) Acute kidney injury ICD Code: N17.9 - Acute kidney failure, unspecified (15) Thrombocytopenia ICD Code: D69.6 - Thrombocytopenia, unspecified (16) Polycythemia ICD Code: D75.1 - Secondary polycythemia (17) CVA (cerebral vascular accident) ICD Code: I63.9 - Cerebral infarction, unspecified (18) Stroke ICD Code: I63.9 - Cerebral infarction, unspecified Status: Acute (19) Incontinence ICD Code: R32 - Unspecified urinary incontinence (20) Cystitis ICD Code: N30.90 - Cystitis, unspecified without hematuria Assessment and Plan This is a 62-year-old female admitted in respiratory failure. Patient was not able to get out of the chair and was intubated by EMS on the scene. Patient was found to have a CVA. She had an ICU course. She is now extubated and transferred to the hospitalist service. Patient also has GI bleeding. She is not able to pass a swallow evaluation. She needs a feeding tube per GI. Respiratory status is currently stable. 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 Chronic benzodiazepine use THC use Hyperammonemia Dysphagia s/p stoke . Advance diet per ST. Plan for modified barium swallow. Patient pulled NGT out CT head 06/22 revealed 2.5 cm left insular cortex CVA. Carotid Dopplers negative. MRI brain 06/24 revealed left sylvian fissure CVA. MRA brain 06/24 negative for occlusive disease Resume lactulose. 2-D echocardiogram revealed EF 40-45%. Right atrial and right ventricular dilatation. Hemoglobin A1c 6.5/lipids revealed low HDL 38. Low-cholesterol 95. Hold per rectum aspirin given rectal bleeding. Transition to ngt Neurology Dr. Barr PEG feeding tube placed 07/08/17 start feedings per GI /dietary recommendations However noted with respiratory distress 07/09/17 poss aspiration PNA, CXR reviewed , ABG, cbc, bmp reviewed no leukocytosis, no signs of systemic infection. Added augmentin, duonebs, IV solumedrol 40 mg once , IS, acapella. Improving. Acute hypoxemic respiratory failure- resolving however now aspirated and requiring more O2. Pneumonia with Stenotrophomonas Mild post extubation stridor Extubated 06/28/17 tolerated well. Mild post extubation stridor appears to have resolved. Received 5 doses of Decadron Bronchodilator therapy with albuterol/ipratropium aerosols every 6 hours with albuterol nebs every 2 hours. Chest x-ray stable bibasilar airspace disease Levaquin for stenotrophomonas 07/09 Noted with respiratory distress 07/09/17 poss aspiration PNA, CXR reviewed , ABG, cbc, bmp reviewed no leukocytosis, no signs of systemic infection. Added augmentin, duonebs, IV solumedrol 40 mg once , IS, acapella. Improving. ST and dietary ff for diet recommendations. O2 supplement keep O2 sat > 92% Hypertension Cardiomyopathy: - Patient evaluated by cardiology. 2-D echo revealed LVEF of 45%. Cardiomyopathy. Continue beta marilou. PRN antihypertensives. Conservative measures per cardiology given the comorbidities. - IV hydralazine for SBP more than 160 Upper GI bleed Elevated transaminases Elevated ammonia Hypoalbuminemia Hepatitis C antibody positive Rectal bleeding: Protonix gtt changed to 40 mg IV q12. Patient repeatedly failed swallow evaluation. Hep C genotype/viral load pending HIDA scan 06/28 with distended gallbladder-no evidence of acute cholecystitis GI following- s/p PEG placement DC tray thickened liquids as patient aspirated and modified barium swallow abn. Stable h/h Follow H&H Hypokalemia. Replace with potassium by PEG. Check Mag and phos as well,. monitor for refeeding sdr. Hypophosphatemia. Refeeding sdr. Monitor and replace K, mag and Phos as indicated. Hypernatremia/Hyperchloremia: Improving. Monitor. Might start free water if necessary History of incontinence Persaud catheter placed for accurate I's and O's in a critically ill patient. Not stable enough yet to discontinue it. Acute kidney injury Possible secondary to dehydration rhabdo. Continue hydration with D5 quarter normal saline. Urine electrolytes/eosinophils negative Renal ultrasound revealed dilated bilateral calyces. Possibly will need urology evaluation when stabilizes Accurate I's and O's. Thrombocytopenia Monitor CBC daily. Follow trends Stenotrophomonas pneumonia Levaquin 750 mg IV every 24 hours Piperacillin/tazobactam day 7-DC. DCd Vancomycin day #3 Pertinent cultures 06/25 - sputum - stenotrophomonas / - blood cultures 2 -no growth 06/22 - UA - gram positive mixed organisms. UA / negative 06/22 - blood cultures 2 - no growth Influenza negative Unable to give acetaminophen secondary to elevated transaminases did unable to give NSAIDs secondary to elevated creatinine PT/OT evaluate and treat Prophylaxis - GI - IV Protonix - DVT - SCD/heparin subcutaneous on hold due to GI bleed. Discussed with the patient, nurse. Discussed with the case management regarding DC plan. SSI pending. no [facility] beds available. Difficult discharge. CM ff Had PEG tube placed 07/08/17. With acute respiratory distress poss aspiration PNA 07/09/17 , no signs of systemic infection , improving. Now with electrolytes imbalance/refeeding sdr., replace lytes as need. Problem Qualifiers (1) COPD (chronic obstructive pulmonary disease): Qualified Codes: J43.9 - Emphysema, unspecified (2) CVA (cerebral vascular accident): Qualified Codes: I63.9 - Cerebral infarction, unspecified (3) Stroke: Qualified Codes: I63.9 - Cerebral infarction, unspecified (4) Incontinence: Qualified Codes: R32 - Unspecified urinary incontinence Iza Browning MD Jul 15, 2017 11:29
[2017-07-15] MEDS: LEVOFLOXACIN 750 MG PREMIX INJ 150 ML IV SCH ×2 (14:04)
[2017-07-16] VITALS: BP 95/54; PULSE 71; RESP 18; TEMP 97.6; O2SAT 98
[2017-07-16] MEDS: CHLORHEXIDINE GLUCONATE 2 % 1 PACK (2 CLOTHS) TOP SCH ×2 (01:47)
[2017-07-16] MEDS: MORPHINE SULFATE 4 MG/ML INJ IV PUSH PRN ×14 (01:50→22:44)
[2017-07-16 04:00] VITALS: BP 116/79; PULSE 80; RESP 18; TEMP 97.4; O2SAT 98
[2017-07-16] MEDS: METOPROLOL TARTRATE 25 MG TAB PO SCH ×6 (05:23→20:58)
[2017-07-16 08:00] VITALS: BP 114/79; PULSE 83; RESP 16; TEMP 98; O2SAT 95
[2017-07-16] MEDS: CHLORHEXIDINE 0.12% (ORAL KIT) 15 ML CUP MT SCH ×4 (08:00→20:00)
[2017-07-16] MEDS: ARTIFICIAL TEARS OPTH SOLN 15 ML BTL EACH EYE SCH ×6 (08:18→18:00)
[2017-07-16] MEDS: ASPIRIN 81 MG CHEW TAB PO SCH ×2 (08:18)
[2017-07-16] MEDS: RIFAXIMIN 550 MG TAB PO SCH ×4 (08:18→20:58)
[2017-07-16] MEDS: SODIUM CHLORIDE 0.9% FLUSH 10 ML FLUSH IV FLUSH SCH ×4 (08:18→20:59)
[2017-07-16] MEDS: PANTOPRAZOLE SODIUM 40 MG VIAL IV PUSH SCH ×4 (08:18→20:58)
[2017-07-16] MEDS: LISINOPRIL 10 MG TAB PO SCH ×2 (08:18)
[2017-07-16] MEDS: LACTOBACILLUS ACIDOPHILUS 1 GM PACKET PO SCH ×4 (08:19→20:58)
[2017-07-16] MEDS: AMOXICILLIN/CLAVULANATE K 875 MG TAB PO SCH ×2 (08:19)
[2017-07-16] MEDS: LACTULOSE SYRUP 20 GM/30 ML CUP PO SCH ×4 (08:19→20:58)
--- NOTE | 2017-07-16 11:35 | HHI.PR ---
Subjective Remarks Follow-up CVA 07/16/17-patient seen and examined, no acute event overnight and currently stable. Patient with expressive aphasia Objective Vitals Vital Signs Date Time Temp Pulse Resp B/P (MAP) Pulse Ox O2 Delivery O2 Flow Rate FiO2 07/16/17 08:00 98.0 83 16 114/79 (91) 95 07/16/17 04:00 97.4 80 18 116/79 (91) 98 07/16/17 00:00 97.6 71 18 95/54 (68) 98 07/15/17 23:00 75 07/15/17 21:01 98.0 87 20 116/72 (87) 92 07/15/17 16:48 98.8 77 18 110/64 (79) 98 07/15/17 11:48 98.2 77 19 117/68 (84) 98 I/O 07/15/17 07/15/17 07/15/17 07/16/17 07/16/17 07/16/17 07:00 15:00 23:00 07:00 15:00 23:00 Intake Total 240 ml 1079 ml 200 ml Output Total 0 ml 200.0 ml Balance 240 ml 1079 ml 0 ml Intake Oral 240 ml IV Total 250 ml Tube Feeding 829 ml Other 200 ml Output Urine Total 200 ml Tube Feeding Residual Discard 0 ml 0 ml # Voids 7 2 3 1 # Bowel Movements 1 1 1 0 Result Diagram: 07/13/1790407/13/17904 Imaging Last Impressions Modified Barium Swallow 07/11/17 0000 Signed Impressions: Service Date/Time: Tuesday, July 11, 2017 10:15 - CONCLUSION: Occasional aspiration Rudy Meng MD FACR Chest X-Ray 07/09/17 0000 Signed Impressions: Service Date/Time: Sunday, July 09, 2017 14:04 - CONCLUSION: 1. Stable mild central bibasilar patchy airspace disease. 2. No significant interval change. Gustavo Santoro MD Head CT 07/06/17 0000 Signed Impressions: Service Date/Time: Thursday, July 06, 2017 09:07 - CONCLUSION: 1. 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 2. Mucous retention cyst within left maxillary and right sphenoid sinuses. Juan Pablo Huffman MD Abdomen X-Ray 07/01/17 1044 Signed Impressions: Service Date/Time: Saturday, July 01, 2017 10:45 - CONCLUSION: NG as above. Rudy Meng MD FACR Hepatobiliary Scan Nuclear Medicine 06/28/17 0900 Signed Impressions: Service Date/Time: Wednesday, June 28, 2017 10:17 - CONCLUSION: Nonspecific persistent distention of the gallbladder. No evidence of acute cholecystitis or biliary obstruction. Christopher Gutierrez MD Lung Scan-VQ Nuclear Medicine 06/24/17 0000 Signed Impressions: Service Date/Time: Saturday, June 24, 2017 12:21 - CONCLUSION: 1. Low probability of pulmonary embolism Jose Richard MD Head Magnetic Resonance Angiography 06/24/17 0000 Signed Impressions: Service Date/Time: Saturday, June 24, 2017 13:37 - CONCLUSION: Negative for major branch vessels obstruction in spite of MRI findings. Rudy Meng MD FACR Brain MRI 06/24/17 0000 Signed Impressions: Service Date/Time: Saturday, June 24, 2017 13:37 - CONCLUSION: Findings consistent with acute infarct left sylvian region anteriorly without hemorrhage. Rudy Meng MD FACR Carotid Artery Ultrasound 06/22/17 0000 Signed Impressions: Service Date/Time: Thursday, June 22, 2017 15:56 - CONCLUSION: No evidence of flow-limiting carotid stenosis. Christopher Leonardo MD Abdomen Ultrasound 06/22/17 0000 Signed Impressions: Service Date/Time: Thursday, June 22, 2017 16:30 - CONCLUSION: Distended gallbladder with wall thickening and internal debris. Mild calyceal dilatation involving the kidneys bilaterally Christopher Leonardo MD Objective Remarks GENERAL: NAD SKIN: Warm and dry. HEAD: Normocephalic. EYES: No scleral icterus. No injection or drainage. NECK: Supple, trachea midline. No JVD or lymphadenopathy. CARDIOVASCULAR: Regular rate and rhythm without murmurs, gallops, or rubs. RESPIRATORY: Breath sounds equal bilaterally. No accessory muscle use. GASTROINTESTINAL: Abdomen soft, non-tender, nondistended. PEG tube in place MUSCULOSKELETAL: No cyanosis, or edema. BACK: Nontender without obvious deformity. No CVA tenderness. A/P Problem List: (1) Acute respiratory failure ICD Code: J96.00 - Acute respiratory failure, unspecified whether with hypoxia or hypercapnia (2) Anxiety ICD Code: F41.9 - Anxiety disorder, unspecified (3) COPD (chronic obstructive pulmonary disease) ICD Code: J44.9 - Chronic obstructive pulmonary disease, unspecified (4) Chronically on benzodiazepine therapy ICD Code: Z79.899 - Other senior living (current) drug therapy (5) Low TSH level ICD Code: R94.6 - Abnormal results of thyroid function studies (6) Elevated troponin ICD Code: R74.8 - Abnormal levels of other serum enzymes (7) Elevated CPK ICD Code: R74.8 - Abnormal levels of other serum enzymes (8) Serum ammonia increased ICD Code: E72.20 - Disorder of urea cycle metabolism, unspecified (9) Elevated transaminase level ICD Code: R74.0 - Nonspecific elevation of levels of transaminase and lactic acid dehydrogenase [LDH] (10) Lactic acidosis ICD Code: E87.2 - Acidosis (11) Hyperglycemia ICD Code: R73.9 - Hyperglycemia, unspecified (12) Tobacco abuse ICD Code: Z72.0 - Tobacco use (13) Tetrahydrocannabinol (THC) use disorder, mild, abuse ICD Code: F12.10 - Cannabis abuse, uncomplicated (14) Acute kidney injury ICD Code: N17.9 - Acute kidney failure, unspecified (15) Thrombocytopenia ICD Code: D69.6 - Thrombocytopenia, unspecified (16) Polycythemia ICD Code: D75.1 - Secondary polycythemia (17) CVA (cerebral vascular accident) ICD Code: I63.9 - Cerebral infarction, unspecified (18) Stroke ICD Code: I63.9 - Cerebral infarction, unspecified Status: Acute (19) Incontinence ICD Code: R32 - Unspecified urinary incontinence (20) Cystitis ICD Code: N30.90 - Cystitis, unspecified without hematuria Assessment and Plan 62-year-old female with 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 Continue with aspirin LDL 36 therefore statin not indicated PT/OT/speech therapy Appreciate input from neurology Possible aspiration pneumonia To complete Augmentin today 07/16/17 Hyperammonemia Currently on lactulose twice a day Check ammonia level in a.m. Acute hypoxemic respiratory failure Resolved Continue with DuoNeb when necessary and maintain oxygen saturation above 92% Hypertension Cardiomyopathy 2-D echo revealed LVEF of 45%. Continue beta marilou. PRN antihypertensives Appreciate input from cardiology Dysphagia Continue with tube feed History of chronic of chronic benzodiazepine use Upper GI bleed Elevated transaminases Elevated ammonia Hypoalbuminemia Hepatitis C antibody positive Rectal bleeding: Currently on Protonix Appreciate input from GI HIDA scan 06/28 with distended gallbladder-no evidence of acute cholecystitis s/p PEG placement H&H stable History of incontinence [facility] Acute kidney injury Resolved Thrombocytopenia Monitor CBC daily. Follow trends Stenotrophomonas pneumonia Resolved status post treatment with antibiotics Prophylaxis - GI - IV Protonix - DVT - SCD/heparin subcutaneous on hold due to GI bleed. Problem Qualifiers (1) COPD (chronic obstructive pulmonary disease): Qualified Codes: J43.9 - Emphysema, unspecified (2) CVA (cerebral vascular accident): Qualified Codes: I63.9 - Cerebral infarction, unspecified (3) Stroke: Qualified Codes: I63.9 - Cerebral infarction, unspecified (4) Incontinence: Qualified Codes: R32 - Unspecified urinary incontinence James Georges MD Jul 16, 2017 11:35
[2017-07-16 12:00] VITALS: BP 144/74; PULSE 83; RESP 16; TEMP 97.4; O2SAT 95
[2017-07-16 16:00] VITALS: BP 101/57; PULSE 77; RESP 16; TEMP 97.8; O2SAT 97
[2017-07-16 20:00] VITALS: BP 111/60; PULSE 62; PULSE 72; RESP 20; TEMP 98; O2SAT 97
[2017-07-17] VITALS: BP 110/64; PULSE 82; RESP 20; TEMP 98.4; O2SAT 96
[2017-07-17] MEDS: MORPHINE SULFATE 4 MG/ML INJ IV PUSH PRN ×6 (02:27→09:04)
[2017-07-17] MEDS: CHLORHEXIDINE GLUCONATE 2 % 1 PACK (2 CLOTHS) TOP SCH ×2 (03:41)
[2017-07-17 04:00] VITALS: BP 104/62; PULSE 81; RESP 20; TEMP 98.6; O2SAT 96
[2017-07-17] MEDS: METOPROLOL TARTRATE 25 MG TAB PO SCH ×6 (05:44→22:01)
[2017-07-17 08:00] VITALS: BP 118/84; PULSE 69; RESP 20; TEMP 98.7; O2SAT 92
[2017-07-17] MEDS: PANTOPRAZOLE SODIUM 40 MG VIAL IV PUSH SCH ×2 (08:36)
[2017-07-17] MEDS: LACTULOSE SYRUP 20 GM/30 ML CUP PO SCH ×4 (08:36→22:00)
[2017-07-17] MEDS: LACTOBACILLUS ACIDOPHILUS 1 GM PACKET PO SCH ×4 (08:36→21:00)
[2017-07-17] MEDS: RIFAXIMIN 550 MG TAB PO SCH ×4 (08:37→22:00)
[2017-07-17] MEDS: ASPIRIN 81 MG CHEW TAB PO SCH ×2 (08:37)
[2017-07-17] MEDS: SODIUM CHLORIDE 0.9% FLUSH 10 ML FLUSH IV FLUSH SCH ×4 (08:37→21:00)
[2017-07-17] MEDS: LISINOPRIL 10 MG TAB PO SCH ×2 (08:37)
[2017-07-17] MEDS: ARTIFICIAL TEARS OPTH SOLN 15 ML BTL EACH EYE SCH ×6 (08:38→17:32)
--- NOTE | 2017-07-17 10:37 | HHI.PR ---
Subjective Remarks Follow-up CVA 07/16/17-patient seen and examined, no acute event overnight and currently stable. Patient with expressive aphasia 07/17/17-patient seen and examined, stable and tolerating tube feed. Patient ambulated without any assistance. Currently afebrile Objective Vitals Vital Signs Date Time Temp Pulse Resp B/P (MAP) Pulse Ox O2 Delivery O2 Flow Rate FiO2 07/17/17 08:00 98.7 69 20 118/84 (95) 92 07/17/17 04:00 98.6 81 20 104/62 (76) 96 07/17/17 00:00 98.4 82 20 110/64 (79) 96 07/16/17 20:00 98.0 72 20 111/60 (77) 97 07/16/17 20:00 62 07/16/17 16:00 97.8 77 16 101/57 (72) 97 07/16/17 12:00 97.4 83 16 144/74 (97) 95 I/O 07/16/17 07/16/17 07/16/17 07/17/17 07/17/17 07/17/17 07:00 15:00 23:00 07:00 15:00 23:00 Intake Total 200 ml Output Total 200.0 ml Balance 0 ml Intake Oral 0 ml Other 200 ml Output Urine Total 200 ml Tube Feeding Residual Discard 0 ml # Voids 1 5 2 3 # Bowel Movements 0 Result Diagram: 07/13/1790407/13/17904 Objective Remarks GENERAL: NAD SKIN: Warm and dry. HEAD: Normocephalic. EYES: No scleral icterus. No injection or drainage. NECK: Supple, trachea midline. No JVD or lymphadenopathy. CARDIOVASCULAR: Regular rate and rhythm without murmurs, gallops, or rubs. RESPIRATORY: Breath sounds equal bilaterally. No accessory muscle use. GASTROINTESTINAL: Abdomen soft, non-tender, nondistended. PEG tube in place MUSCULOSKELETAL: No cyanosis, or edema. BACK: Nontender without obvious deformity. No CVA tenderness. A/P Problem List: (1) Acute respiratory failure ICD Code: J96.00 - Acute respiratory failure, unspecified whether with hypoxia or hypercapnia (2) Anxiety ICD Code: F41.9 - Anxiety disorder, unspecified (3) COPD (chronic obstructive pulmonary disease) ICD Code: J44.9 - Chronic obstructive pulmonary disease, unspecified (4) Chronically on benzodiazepine therapy ICD Code: Z79.899 - Other [facility] (current[facility] drug therapy (5) Low TSH level ICD Code: R94.6 - Abnormal results of thyroid function studies (6) Elevated troponin ICD Code: R74.8 - Abnormal levels of other serum enzymes (7) Elevated CPK ICD Code: R74.8 - Abnormal levels of other serum enzymes (8) Serum ammonia increased ICD Code: E72.20 - Disorder of urea cycle metabolism, unspecified (9) Elevated transaminase level ICD Code: R74.0 - Nonspecific elevation of levels of transaminase and lactic acid dehydrogenase [LDH] (10) Lactic acidosis ICD Code: E87.2 - Acidosis (11) Hyperglycemia ICD Code: R73.9 - Hyperglycemia, unspecified (12) Tobacco abuse ICD Code: Z72.0 - Tobacco use (13) Tetrahydrocannabinol (THC) use disorder, mild, abuse ICD Code: F12.10 - Cannabis abuse, uncomplicated (14) Acute kidney injury ICD Code: N17.9 - Acute kidney failure, unspecified (15) Thrombocytopenia ICD Code: D69.6 - Thrombocytopenia, unspecified (16) Polycythemia ICD Code: D75.1 - Secondary polycythemia (17) CVA (cerebral vascular accident) ICD Code: I63.9 - Cerebral infarction, unspecified (18) Stroke ICD Code: I63.9 - Cerebral infarction, unspecified Status: Acute (19) Incontinence ICD Code: R32 - Unspecified urinary incontinence (20) Cystitis ICD Code: N30.90 - Cystitis, unspecified without hematuria Assessment and Plan 62-year-old female with 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 Continue with aspirin LDL 36 therefore statin not indicated PT/OT/speech therapy Appreciate input from neurology Possible aspiration pneumonia Completed Augmentin 07/16/17 Hyperammonemia Currently on lactulose twice a day ammonia level pending this a.m. Acute hypoxemic respiratory failure Resolved Continue with DuoNeb when necessary and maintain oxygen saturation above 92% Hypertension Cardiomyopathy 2-D echo revealed LVEF of 45%. Continue beta marilou. PRN antihypertensives Appreciate input from cardiology Dysphagia Continue with tube feed History of chronic of chronic benzodiazepine use Advised on cessation Upper GI bleed Elevated transaminases Elevated ammonia Hypoalbuminemia Hepatitis C antibody positive Rectal bleeding: Currently on Protonix Appreciate input from GI who signed off HIDA scan 06/28 with distended gallbladder-no evidence of acute cholecystitis s/p PEG placement H&H stable History of incontinence [facility] Acute kidney injury Resolved Thrombocytopenia Monitor CBC . Follow trends Stenotrophomonas pneumonia Resolved status post treatment with antibiotics Prophylaxis - GI - PO Protonix - DVT - SCD/heparin subcutaneous on hold due to GI bleed. Problem Qualifiers (1) COPD (chronic obstructive pulmonary disease): Qualified Codes: J43.9 - Emphysema, unspecified (2) CVA (cerebral vascular accident): Qualified Codes: I63.9 - Cerebral infarction, unspecified (3) Stroke: Qualified Codes: I63.9 - Cerebral infarction, unspecified (4) Incontinence: Qualified Codes: R32 - Unspecified urinary incontinence James Georges MD Jul 17, 2017 10:37
[2017-07-17 12:00] VITALS: BP 106/75; PULSE 71; RESP 20; TEMP 98; O2SAT 94
[2017-07-17] MEDS: oxyCODONE/ACETAMINOPHEN 7.5 MG/325 MG TAB PO PRN ×6 (12:24→22:00)
[2017-07-17 15:39] LABS: AUTOMATED NEUTROPHIL # 6.5 TH/MM3 (1.8-7.7); BASOPHIL # 0.1 TH/MM3 (0-0.2); BASOPHIL % 1.4 % (0.0-2.0); EOSINOPHIL # 0.2 TH/MM3 (0-0.4); HEMATOCRIT 34.8 % (35.0-46.0); HEMOGLOBIN 11.1 GM/DL (11.6-15.3); LYMPH % 19.1 % (9.0-44.0); LYMPHOCYTE # 1.7 TH/MM3 (1.0-4.8); MEAN CELL VOLUME 94.3 FL (80.0-100.0); MEAN CORPUSCULAR HEMOGLOBIN 30.2 PG (27.0-34.0); MONO % 5.9 % (0.0-8.0); MONOCYTE # 0.5 TH/MM3 (0-0.9); NEUT % 71.6 % (16.0-70.0); PLATELET COUNT 175 TH/MM3 (150-450); RED BLOOD COUNT 3.69 MIL/MM3 (4.00-5.30); RED CELL DISTRIBUTION WIDTH 13.6 % (11.6-17.2); WHITE BLOOD COUNT 9.1 TH/MM3 (4.0-11.0)
[2017-07-17 16:00] VITALS: BP 105/69; PULSE 70; RESP 20; TEMP 97.3; O2SAT 96
[2017-07-17] MEDS: CHLORHEXIDINE 0.12% (ORAL KIT) 15 ML CUP MT SCH ×4 (16:18→20:00)
[2017-07-17 20:40] VITALS: BP 97/60; PULSE 77; RESP 17; TEMP 98.4; O2SAT 96
[2017-07-17 21:40] LABS: BICARBONATE 32.1 MEQ/L (21.0-32.0); CALCIUM 8.9 MG/DL (8.5-10.1); CREATININE 0.68 MG/DL (0.50-1.00)
[2017-07-17] MEDS: PANTOPRAZOLE SOD 40 MG DELAYED RELEASE TAB PO SCH ×2 (22:00)
[2017-07-18] VITALS (8 sets, daily range): BP systolic 97–122; BP diastolic 55–73; PULSE 60–81; RESP 18; TEMP 97.3–98.3; O2SAT 95–98
[2017-07-18] MEDS: oxyCODONE/ACETAMINOPHEN 7.5 MG/325 MG TAB PO PRN ×12 (02:38→20:28)
[2017-07-18] MEDS: CHLORHEXIDINE GLUCONATE 2 % 1 PACK (2 CLOTHS) TOP SCH ×2 (02:41)
[2017-07-18] MEDS: METOPROLOL TARTRATE 25 MG TAB PO SCH ×6 (05:41→20:27)
[2017-07-18] MEDS: CHLORHEXIDINE 0.12% (ORAL KIT) 15 ML CUP MT SCH ×4 (08:00→20:00)
[2017-07-18] MEDS: LACTOBACILLUS ACIDOPHILUS 1 GM PACKET PO SCH ×4 (09:00→20:28)
[2017-07-18] MEDS: SODIUM CHLORIDE 0.9% FLUSH 10 ML FLUSH IV FLUSH SCH ×4 (09:00→20:28)
[2017-07-18] MEDS: RIFAXIMIN 550 MG TAB PO SCH ×4 (09:51→20:28)
[2017-07-18] MEDS: PANTOPRAZOLE SOD 40 MG DELAYED RELEASE TAB PO SCH ×4 (09:51→20:27)
[2017-07-18] MEDS: ARTIFICIAL TEARS OPTH SOLN 15 ML BTL EACH EYE SCH ×6 (09:52→18:00)
[2017-07-18] MEDS: LACTULOSE SYRUP 20 GM/30 ML CUP PO SCH ×2 (09:52)
[2017-07-18] MEDS: LISINOPRIL 10 MG TAB PO SCH ×2 (09:53)
[2017-07-18] MEDS: ASPIRIN 81 MG CHEW TAB PO SCH ×2 (09:53)
--- NOTE | 2017-07-18 11:37 | HHI.PR ---
Subjective Remarks Follow-up CVA 07/16/17-patient seen and examined, no acute event overnight and currently stable. Patient with expressive aphasia 07/17/17-patient seen and examined, stable and tolerating tube feed. Patient ambulated without any assistance. Currently afebrile 07/18/17-patient seen and examined, continue to remain stable and has no complaint Objective Vitals Vital Signs Date Time Temp Pulse Resp B/P (MAP) Pulse Ox O2 Delivery O2 Flow Rate FiO2 07/18/17 08:13 97.5 81 18 122/67 (85) 97 07/18/17 04:30 98.3 61 18 98/62 (74) 98 07/18/17 00:30 97.9 68 18 100/64 (76) 97 07/17/17 20:40 98.4 77 17 97/60 (72) 96 07/17/17 16:00 97.3 70 20 105/69 (81) 96 07/17/17 12:00 98.0 71 20 106/75 (85) 94 I/O 07/17/17 07/17/17 07/17/17 07/18/17 07/18/17 07/18/17 07:00 15:00 23:00 07:00 15:00 23:00 Intake Total 800 ml 500 ml Balance 800 ml 500 ml Intake Oral 800 ml 500 ml # Voids 3 4 1 3 # Bowel Movements 2 0 0 Result Diagram: 07/17/1793107/17/172032 Objective Remarks GENERAL: NAD SKIN: Warm and dry. HEAD: Normocephalic. EYES: No scleral icterus. No injection or drainage. NECK: Supple, trachea midline. No JVD or lymphadenopathy. CARDIOVASCULAR: Regular rate and rhythm without murmurs, gallops, or rubs. RESPIRATORY: Breath sounds equal bilaterally. No accessory muscle use. GASTROINTESTINAL: Abdomen soft, non-tender, nondistended. PEG tube in place MUSCULOSKELETAL: No cyanosis, or edema. BACK: Nontender without obvious deformity. No CVA tenderness. A/P Problem List: (1) Acute respiratory failure ICD Code: J96.00 - Acute respiratory failure, unspecified whether with hypoxia or hypercapnia (2) Anxiety ICD Code: F41.9 - Anxiety disorder, unspecified (3) COPD (chronic obstructive pulmonary disease) ICD Code: J44.9 - Chronic obstructive pulmonary disease, unspecified (4) Chronically on benzodiazepine therapy ICD Code: Z79.899 - Other skilled nursing (current) drug therapy (5) Low TSH level ICD Code: R94.6 - Abnormal results of thyroid function studies (6) Elevated troponin ICD Code: R74.8 - Abnormal levels of other serum enzymes (7) Elevated CPK ICD Code: R74.8 - Abnormal levels of other serum enzymes (8) Serum ammonia increased ICD Code: E72.20 - Disorder of urea cycle metabolism, unspecified (9) Elevated transaminase level ICD Code: R74.0 - Nonspecific elevation of levels of transaminase and lactic acid dehydrogenase [LDH] (10) Lactic acidosis ICD Code: E87.2 - Acidosis (11) Hyperglycemia ICD Code: R73.9 - Hyperglycemia, unspecified (12) Tobacco abuse ICD Code: Z72.0 - Tobacco use (13) Tetrahydrocannabinol (THC) use disorder, mild, abuse ICD Code: F12.10 - Cannabis abuse, uncomplicated (14) Acute kidney injury ICD Code: N17.9 - Acute kidney failure, unspecified (15) Thrombocytopenia ICD Code: D69.6 - Thrombocytopenia, unspecified (16) Polycythemia ICD Code: D75.1 - Secondary polycythemia (17) CVA (cerebral vascular accident) ICD Code: I63.9 - Cerebral infarction, unspecified (18) Stroke ICD Code: I63.9 - Cerebral infarction, unspecified Status: Acute (19) Incontinence ICD Code: R32 - Unspecified urinary incontinence (20) Cystitis ICD Code: N30.90 - Cystitis, unspecified without hematuria Assessment and Plan 62-year-old female with 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 Continue with aspirin LDL 36 therefore statin not indicated PT/OT/speech therapy Appreciate input from neurology Possible aspiration pneumonia-resolved Completed Augmentin 07/16/17 Hyperammonemia-resolved Change lactulose to daily Acute hypoxemic respiratory failure Resolved Continue with DuoNeb when necessary and maintain oxygen saturation above 92% Hypertension Cardiomyopathy 2-D echo revealed LVEF of 45%. Continue beta marilou. PRN antihypertensives Appreciate input from cardiology Dysphagia Continue with tube feed History of chronic of chronic benzodiazepine use Advised on cessation Upper GI bleed Elevated transaminases Elevated ammonia Hypoalbuminemia Hepatitis C antibody positive Rectal bleeding: Currently on Protonix Appreciate input from GI who signed off HIDA scan 06/28 with distended gallbladder-no evidence of acute cholecystitis s/p PEG placement H&H stable History of incontinence [facility] Acute kidney injury Resolved Thrombocytopenia Monitor CBC . Follow trends Stenotrophomonas pneumonia Resolved status post treatment with antibiotics Prophylaxis - GI - PO Protonix - DVT - SCD/heparin subcutaneous on hold due to GI bleed. Problem Qualifiers (1) COPD (chronic obstructive pulmonary disease): Qualified Codes: J43.9 - Emphysema, unspecified (2) CVA (cerebral vascular accident): Qualified Codes: I63.9 - Cerebral infarction, unspecified (3) Stroke: Qualified Codes: I63.9 - Cerebral infarction, unspecified (4) Incontinence: Qualified Codes: R32 - Unspecified urinary incontinence James Georges MD Jul 18, 2017 11:37
[2017-07-18] MEDS ORDERED: PNEUMOCOCCAL POLYVALENT INJ 25 MCG/0.5 ML SYR IM ONE ×2 (19:15)
[2017-07-18] MEDS: TEMAZEPAM 15 MG CAP PO PRN ×2 (22:41)
[2017-07-19] VITALS (8 sets, daily range): BP systolic 90–116; BP diastolic 52–68; PULSE 73–102; RESP 18–20; TEMP 97.5–98.7; O2SAT 93–99
[2017-07-19] MEDS: CHLORHEXIDINE GLUCONATE 2 % 1 PACK (2 CLOTHS) TOP SCH ×2 (04:00)
[2017-07-19] MEDS: METOPROLOL TARTRATE 25 MG TAB PO SCH ×6 (04:52→21:37)
[2017-07-19] MEDS: oxyCODONE/ACETAMINOPHEN 7.5 MG/325 MG TAB PO PRN ×10 (04:52→21:37)
[2017-07-19] MEDS: LACTOBACILLUS ACIDOPHILUS 1 GM PACKET PO SCH ×4 (09:00→21:35)
[2017-07-19] MEDS ORDERED: PNEUMOCOCCAL POLYVALENT INJ 25 MCG/0.5 ML SYR IM ONE ×2 (09:00)
[2017-07-19] MEDS ORDERED: INFLUENZA VIRUS VACCINE (QUADRIVALENT) 0.5 ML SYR IM ONE ×2 (09:00)
[2017-07-19] MEDS: LISINOPRIL 10 MG TAB PO SCH ×2 (09:00)
[2017-07-19] MEDS: PANTOPRAZOLE SOD 40 MG DELAYED RELEASE TAB PO SCH ×4 (09:11→21:37)
[2017-07-19] MEDS: RIFAXIMIN 550 MG TAB PO SCH ×4 (09:11→21:37)
[2017-07-19] MEDS: LACTULOSE SYRUP 20 GM/30 ML CUP PO SCH ×2 (09:12)
[2017-07-19] MEDS: ASPIRIN 81 MG CHEW TAB PO SCH ×2 (09:12)
[2017-07-19] MEDS: CHLORHEXIDINE 0.12% (ORAL KIT) 15 ML CUP MT SCH ×4 (09:21→21:37)
[2017-07-19] MEDS: ARTIFICIAL TEARS OPTH SOLN 15 ML BTL EACH EYE SCH ×6 (09:21→17:01)
[2017-07-19] MEDS: SODIUM CHLORIDE 0.9% FLUSH 10 ML FLUSH IV FLUSH SCH ×4 (09:23→21:35)
--- NOTE | 2017-07-19 11:22 | HHI.PR ---
Subjective Remarks Follow-up CVA 07/16/17-patient seen and examined, no acute event overnight and currently stable. Patient with expressive aphasia 07/17/17-patient seen and examined, stable and tolerating tube feed. Patient ambulated without any assistance. Currently afebrile 07/18/17-patient seen and examined, continue to remain stable and has no complaint 07/19/17-patient seen and examined, requesting stronger narcotics. Mentions he hurt all over the place. She was able to sleep 5 and half hour yesterday. Plan for modified barium swallow study today Objective Vitals Vital Signs Date Time Temp Pulse Resp B/P (MAP) Pulse Ox O2 Delivery O2 Flow Rate FiO2 07/19/17 10:07 18 07/19/17 09:30 79 07/19/17 08:35 97.8 84 18 98/63 (75) 99 07/19/17 04:00 97.5 73 18 116/52 (73) 95 07/18/17 20:00 97.4 80 18 105/63 (77) 96 07/18/17 19:00 60 07/18/17 15:59 97.3 77 18 97/55 (69) 95 07/18/17 12:30 77 07/18/17 12:15 97.4 77 18 99/73 (82) 97 I/O 07/18/17 07/18/17 07/18/17 07/19/17 07/19/17 07/19/17 07:00 15:00 23:00 07:00 15:00 23:00 Intake Total 500 ml Output Total 750 ml Balance 500 ml -750 ml Intake Oral 500 ml Output Urine Total 750 ml # Voids 3 2 # Bowel Movements 0 3 Result Diagram: 07/17/1793107/17/172032 Objective Remarks GENERAL: NAD SKIN: Warm and dry. HEAD: Normocephalic. EYES: No scleral icterus. No injection or drainage. NECK: Supple, trachea midline. No JVD or lymphadenopathy. CARDIOVASCULAR: Regular rate and rhythm without murmurs, gallops, or rubs. RESPIRATORY: Breath sounds equal bilaterally. No accessory muscle use. GASTROINTESTINAL: Abdomen soft, non-tender, nondistended. PEG tube in place MUSCULOSKELETAL: No cyanosis, or edema. BACK: Nontender without obvious deformity. No CVA tenderness. A/P Problem List: (1) Acute respiratory failure ICD Code: J96.00 - Acute respiratory failure, unspecified whether with hypoxia or hypercapnia (2) Anxiety ICD Code: F41.9 - Anxiety disorder, unspecified (3) COPD (chronic obstructive pulmonary disease) ICD Code: J44.9 - Chronic obstructive pulmonary disease, unspecified (4) Chronically on benzodiazepine therapy ICD Code: Z79.899 - [facility] (5) Low TSH level ICD Code: R94.6 - Abnormal results of thyroid function studies (6) Elevated troponin ICD Code: R74.8 - Abnormal levels of other serum enzymes (7) Elevated CPK ICD Code: R74.8 - Abnormal levels of other serum enzymes (8) Serum ammonia increased ICD Code: E72.20 - Disorder of urea cycle metabolism, unspecified (9) Elevated transaminase level ICD Code: R74.0 - Nonspecific elevation of levels of transaminase and lactic acid dehydrogenase [LDH] (10) Lactic acidosis ICD Code: E87.2 - Acidosis (11) Hyperglycemia ICD Code: R73.9 - Hyperglycemia, unspecified (12) Tobacco abuse ICD Code: Z72.0 - Tobacco use (13) Tetrahydrocannabinol (THC) use disorder, mild, abuse ICD Code: F12.10 - Cannabis abuse, uncomplicated (14) Acute kidney injury ICD Code: N17.9 - Acute kidney failure, unspecified (15) Thrombocytopenia ICD Code: D69.6 - Thrombocytopenia, unspecified (16) Polycythemia ICD Code: D75.1 - Secondary polycythemia (17) CVA (cerebral vascular accident) ICD Code: I63.9 - Cerebral infarction, unspecified (18) Stroke ICD Code: I63.9 - Cerebral infarction, unspecified Status: Acute (19) Incontinence ICD Code: R32 - Unspecified urinary incontinence (20) Cystitis ICD Code: N30.90 - Cystitis, unspecified without hematuria Assessment and Plan 62-year-old female with 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 Continue with aspirin LDL 36 therefore statin not indicated PT/OT/speech therapy Appreciate input from neurology Plan for modified barium swallow study today 07/19/17 Possible aspiration pneumonia-resolved Completed Augmentin 07/16/17 Hyperammonemia-resolved Continue lactulose daily Acute hypoxemic respiratory failure Resolved Continue with DuoNeb when necessary and maintain oxygen saturation above 92% Hypertension Cardiomyopathy 2-D echo revealed LVEF of 45%. Continue beta marilou. PRN antihypertensives Appreciate input from cardiology Dysphagia Continue with tube feed Plan for modified barium swallow study today 07/19/17 History of chronic of chronic benzodiazepine use Advised on cessation Upper GI bleed Elevated transaminases Elevated ammonia Hypoalbuminemia Hepatitis C antibody positive Rectal bleeding: Currently on Protonix Appreciate input from GI who signed off HIDA scan 06/28 with distended gallbladder-no evidence of acute cholecystitis s/p PEG placement H&H stable History of incontinence [facility] Acute kidney injury Resolved Thrombocytopenia Monitor CBC . Follow trends Stenotrophomonas pneumonia Resolved status post treatment with antibiotics Prophylaxis - GI - PO Protonix - DVT - SCD/heparin subcutaneous on hold due to GI bleed. Problem Qualifiers (1) COPD (chronic obstructive pulmonary disease): Qualified Codes: J43.9 - Emphysema, unspecified (2) CVA (cerebral vascular accident): Qualified Codes: I63.9 - Cerebral infarction, unspecified (3) Stroke: Qualified Codes: I63.9 - Cerebral infarction, unspecified (4) Incontinence: Qualified Codes: R32 - Unspecified urinary incontinence James Georges MD Jul 19, 2017 11:22
--- NOTE | 2017-07-19 12:21 | RADRPT ---
EXAM DATE/TIME: 07/19/2017 00:00 [facility] COMPARISON: BA SWALLOW W/SPEECH PATHOLOGY, July 11, 2017, 10:15. INDICATIONS : Dysphagia FLUORO TIME: 2.6 minutes IMAGE COUNT: 0 CONTRAST: Dose as prescribed by speech pathologist. MEDICAL HISTORY : Stroke. SURGICAL HISTORY : None. ENCOUNTER: Subsequent ACUITY: 1 month PAIN SCORE: 0/10 LOCATION: Esophagus FINDINGS: A modified barium swallow was performed with speech pathology. Patient was given a variety of liquids to swallow. There was penetration identified with nectar thick consistency, and penetration and aspiration with t hin liquids. For a full detailed report, see report by the speech pathologist. CONCLUSION: Penetration and aspiration as above within liquids, penetration with nectar thick consistency. Jude Braxton MD on July 19, 2017 at 12:20 Board Certified Radiologist. This report was verified electronically.
[2017-07-19] MEDS: RESP: ALBUTEROL 2.5 MG/IPRATROPIUM 0.5 MG NEB (PRN) NEB ×2 (14:15)
[2017-07-19] MEDS: TEMAZEPAM 15 MG CAP PO PRN ×2 (21:37)
[2017-07-20] VITALS (7 sets, daily range): BP systolic 83–99; BP diastolic 47–73; PULSE 92–106; RESP 16–20; TEMP 97.2–98.3; O2SAT 90–98
[2017-07-20] MEDS: oxyCODONE/ACETAMINOPHEN 7.5 MG/325 MG TAB PO PRN ×10 (02:01→20:21)
[2017-07-20] MEDS: CHLORHEXIDINE GLUCONATE 2 % 1 PACK (2 CLOTHS) TOP SCH ×4 (04:00→18:52)
[2017-07-20] MEDS: METOPROLOL TARTRATE 25 MG TAB PO SCH ×6 (05:27→21:31)
[2017-07-20] MEDS: CHLORHEXIDINE 0.12% (ORAL KIT) 15 ML CUP MT SCH ×4 (08:00→20:00)
[2017-07-20] MEDS: ARTIFICIAL TEARS OPTH SOLN 15 ML BTL EACH EYE SCH ×6 (08:52→17:46)
[2017-07-20] MEDS: LACTOBACILLUS ACIDOPHILUS 1 GM PACKET PO SCH ×4 (08:52→20:21)
[2017-07-20] MEDS: SODIUM CHLORIDE 0.9% FLUSH 10 ML FLUSH IV FLUSH SCH ×4 (08:52→20:23)
[2017-07-20] MEDS: RIFAXIMIN 550 MG TAB PO SCH ×4 (08:53→20:21)
[2017-07-20] MEDS: PANTOPRAZOLE SOD 40 MG DELAYED RELEASE TAB PO SCH ×4 (08:53→20:21)
[2017-07-20] MEDS: LISINOPRIL 10 MG TAB PO SCH ×2 (08:54)
[2017-07-20] MEDS: ASPIRIN 81 MG CHEW TAB PO SCH ×2 (08:54)
[2017-07-20] MEDS: LACTULOSE SYRUP 20 GM/30 ML CUP PO SCH ×2 (08:54)
[2017-07-20] MEDS ORDERED: PNEUMOCOCCAL POLYVALENT INJ 25 MCG/0.5 ML SYR IM ONE ×2 (10:00)
[2017-07-20] MEDS ORDERED: INFLUENZA VIRUS VACCINE (QUADRIVALENT) 0.5 ML SYR IM ONE ×2 (10:00)
--- NOTE | 2017-07-20 11:44 | HHI.PR ---
Subjective Remarks Follow-up CVA 07/16/17-patient seen and examined, no acute event overnight and currently stable. Patient with expressive aphasia 07/17/17-patient seen and examined, stable and tolerating tube feed. Patient ambulated without any assistance. Currently afebrile 07/18/17-patient seen and examined, continue to remain stable and has no complaint 07/19/17-patient seen and examined, requesting stronger narcotics. Mentions he hurt all over the place. She was able to sleep 5 and half hour yesterday. Plan for modified barium swallow study today 07/20/17-patient seen and examined, she passed barium modified swallow study yesterday. BP soft. Patient requesting more narcotics and states pain is at 8/ 10 in intensity Objective Vitals Vital Signs Date Time Temp Pulse Resp B/P (MAP) Pulse Ox O2 Delivery O2 Flow Rate FiO2 07/20/17 09:00 97.5 97 16 90/62 (71) 93 07/20/17 05:52 18 07/20/17 04:00 98.0 106 20 83/47 (59) 90 07/20/17 00:00 97.2 100 18 97/73 (81) 98 07/19/17 21:10 102 07/19/17 20:00 98.0 90 20 97/56 (70) 93 07/19/17 16:23 98.7 80 18 90/56 (67) 94 07/19/17 12:10 97.9 76 18 107/68 (81) 94 I/O 07/19/17 07/19/17 07/19/17 07/20/17 07/20/17 07/20/17 07:00 15:00 23:00 07:00 15:00 23:00 Intake Total 180 ml 931 ml Output Total 750 ml Balance -750 ml 180 ml 931 ml Tube Feeding 180 ml 811 ml Other 120 ml Output Urine Total 750 ml # Voids 2 2 8 # Bowel Movements 1 1 Result Diagram: 07/17/1793107/17/172032 Imaging Last Impressions Modified Barium Swallow 07/19/17 0000 Signed Impressions: Service Date/Time: Wednesday, July 19, 2017 00:00 - CONCLUSION: Penetration and aspiration as above within liquids, penetration with nectar thick consistency. Jude Braxton MD Chest X-Ray 07/09/17 0000 Signed Impressions: Service Date/Time: Sunday, July 09, 2017 14:04 - CONCLUSION: 1. Stable mild central bibasilar patchy airspace disease. 2. No significant interval change. Gustavo Santoro MD Head CT 07/06/17 0000 Signed Impressions: Service Date/Time: Thursday, July 06, 2017 09:07 - CONCLUSION: 1. 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 2. Mucous retention cyst within left maxillary and right sphenoid sinuses. Juan Pablo Huffman MD Abdomen X-Ray 07/01/17 1044 Signed Impressions: Service Date/Time: Saturday, July 01, 2017 10:45 - CONCLUSION: NG as above. Rudy Meng MD FACR Hepatobiliary Scan Nuclear Medicine 06/28/17 0900 Signed Impressions: Service Date/Time: Wednesday, June 28, 2017 10:17 - CONCLUSION: Nonspecific persistent distention of the gallbladder. No evidence of acute cholecystitis or biliary obstruction. Christopher Gutierrez MD Lung Scan-VQ Nuclear Medicine 06/24/17 0000 Signed Impressions: Service Date/Time: Saturday, June 24, 2017 12:21 - CONCLUSION: 1. Low probability of pulmonary embolism Jose Richard MD Head Magnetic Resonance Angiography 06/24/17 0000 Signed Impressions: Service Date/Time: Saturday, June 24, 2017 13:37 - CONCLUSION: Negative for major branch vessels obstruction in spite of MRI findings. Rudy Meng MD FACR Brain MRI 06/24/17 0000 Signed Impressions: Service Date/Time: Saturday, June 24, 2017 13:37 - CONCLUSION: Findings consistent with acute infarct left sylvian region anteriorly without hemorrhage. Rudy Meng MD FACR Carotid Artery Ultrasound 06/22/17 0000 Signed Impressions: Service Date/Time: Thursday, June 22, 2017 15:56 - CONCLUSION: No evidence of flow-limiting carotid stenosis. Christopher Leonardo MD Abdomen Ultrasound 06/22/17 0000 Signed Impressions: Service Date/Time: Thursday, June 22, 2017 16:30 - CONCLUSION: Distended gallbladder with wall thickening and internal debris. Mild calyceal dilatation involving the kidneys bilaterally Christopher Leonardo MD Objective Remarks GENERAL: NAD SKIN: Warm and dry. HEAD: Normocephalic. EYES: No scleral icterus. No injection or drainage. NECK: Supple, trachea midline. No JVD or lymphadenopathy. CARDIOVASCULAR: Regular rate and rhythm without murmurs, gallops, or rubs. RESPIRATORY: Breath sounds equal bilaterally. No accessory muscle use. GASTROINTESTINAL: Abdomen soft, non-tender, nondistended. PEG tube in place MUSCULOSKELETAL: No cyanosis, or edema. BACK: Nontender without obvious deformity. No CVA tenderness. A/P Problem List: (1) Acute respiratory failure ICD Code: J96.00 - Acute respiratory failure, unspecified whether with hypoxia or hypercapnia (2) Anxiety ICD Code: F41.9 - Anxiety disorder, unspecified (3) COPD (chronic obstructive pulmonary disease) ICD Code: J44.9 - Chronic obstructive pulmonary disease, unspecified (4) Chronically on benzodiazepine therapy ICD Code: Z79.899 - Other skilled nursing (current) drug therapy (5) Low TSH level ICD Code: R94.6 - Abnormal results of thyroid function studies (6) Elevated troponin ICD Code: R74.8 - Abnormal levels of other serum enzymes (7) Elevated CPK ICD Code: R74.8 - Abnormal levels of other serum enzymes (8) Serum ammonia increased ICD Code: E72.20 - Disorder of urea cycle metabolism, unspecified (9) Elevated transaminase level ICD Code: R74.0 - Nonspecific elevation of levels of transaminase and lactic acid dehydrogenase [LDH] (10) Lactic acidosis ICD Code: E87.2 - Acidosis (11) Hyperglycemia ICD Code: R73.9 - Hyperglycemia, unspecified (12) Tobacco abuse ICD Code: Z72.0 - Tobacco use (13) Tetrahydrocannabinol (THC) use disorder, mild, abuse ICD Code: F12.10 - Cannabis abuse, uncomplicated (14) Acute kidney injury ICD Code: N17.9 - Acute kidney failure, unspecified (15) Thrombocytopenia ICD Code: D69.6 - Thrombocytopenia, unspecified (16) Polycythemia ICD Code: D75.1 - Secondary polycythemia (17) CVA (cerebral vascular accident) ICD Code: I63.9 - Cerebral infarction, unspecified (18) Stroke ICD Code: I63.9 - Cerebral infarction, unspecified Status: Acute (19) Incontinence ICD Code: R32 - Unspecified urinary incontinence (20) Cystitis ICD Code: N30.90 - Cystitis, unspecified without hematuria Assessment and Plan 62-year-old female with 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 Continue with aspirin LDL 36 therefore statin not indicated PT/OT/speech therapy Appreciate input from neurology Passed modified barium swallow study 07/19/17 Possible aspiration pneumonia-resolved Completed Augmentin 07/16/17 Hyperammonemia-resolved Continue lactulose daily Acute hypoxemic respiratory failure Resolved Continue with DuoNeb when necessary and maintain oxygen saturation above 92% Hypertension Cardiomyopathy 2-D echo revealed LVEF of 45%. Continue beta marilou. PRN antihypertensives Appreciate input from cardiology Dysphagia Continue with tube feed as well as thickened liquid diet Passed modified barium swallow study 07/19/17 History of chronic of chronic benzodiazepine use Advised on cessation Upper GI bleed Elevated transaminases Elevated ammonia Hypoalbuminemia Hepatitis C antibody positive Rectal bleeding: Currently on Protonix Appreciate input from GI who signed off HIDA scan 06/28 with distended gallbladder-no evidence of acute cholecystitis s/p PEG placement H&H stable History of incontinence Persaud care Acute kidney injury Resolved Thrombocytopenia Monitor CBC . Follow trends Stenotrophomonas pneumonia Resolved status post treatment with antibiotics Prophylaxis - GI - PO Protonix - DVT - SCD/heparin subcutaneous on hold due to GI bleed. Problem Qualifiers (1) COPD (chronic obstructive pulmonary disease): Qualified Codes: J43.9 - Emphysema, unspecified (2) CVA (cerebral vascular accident): Qualified Codes: I63.9 - Cerebral infarction, unspecified (3) Stroke: Qualified Codes: I63.9 - Cerebral infarction, unspecified (4) Incontinence: Qualified Codes: R32 - Unspecified urinary incontinence James Georges MD Jul 20, 2017 11:44
[2017-07-20] MEDS: TEMAZEPAM 15 MG CAP PO PRN ×2 (23:38)
[2017-07-21] VITALS (9 sets, daily range): BP systolic 95–116; BP diastolic 57–75; PULSE 88–103; RESP 16–20; TEMP 97.2–98.8; O2SAT 96–100
[2017-07-21] MEDS: oxyCODONE/ACETAMINOPHEN 7.5 MG/325 MG TAB PO PRN ×10 (04:16→22:22)
[2017-07-21] MEDS: METOPROLOL TARTRATE 25 MG TAB PO SCH ×6 (05:09→21:04)
[2017-07-21] MEDS: CHLORHEXIDINE 0.12% (ORAL KIT) 15 ML CUP MT SCH ×4 (08:00→20:00)
[2017-07-21] MEDS: SODIUM CHLORIDE 0.9% FLUSH 10 ML FLUSH IV FLUSH SCH ×4 (09:00→21:00)
[2017-07-21] MEDS: LISINOPRIL 10 MG TAB PO SCH ×2 (09:00)
[2017-07-21] MEDS: ARTIFICIAL TEARS OPTH SOLN 15 ML BTL EACH EYE SCH ×6 (09:00→18:00)
[2017-07-21] MEDS: LACTOBACILLUS ACIDOPHILUS 1 GM PACKET PO SCH ×4 (09:00→21:04)
[2017-07-21] MEDS: RIFAXIMIN 550 MG TAB PO SCH ×4 (10:28→20:48)
[2017-07-21] MEDS: ASPIRIN 81 MG CHEW TAB PO SCH ×2 (10:28)
[2017-07-21] MEDS: PANTOPRAZOLE SOD 40 MG DELAYED RELEASE TAB PO SCH ×4 (10:28→20:48)
[2017-07-21] MEDS: LACTULOSE SYRUP 20 GM/30 ML CUP PO SCH ×2 (10:29)
--- NOTE | 2017-07-21 10:54 | HHI.PR ---
Subjective Remarks Follow-up CVA 07/16/17-patient seen and examined, no acute event overnight and currently stable. Patient with expressive aphasia 07/17/17-patient seen and examined, stable and tolerating tube feed. Patient ambulated without any assistance. Currently afebrile 07/18/17-patient seen and examined, continue to remain stable and has no complaint 07/19/17-patient seen and examined, requesting stronger narcotics. Mentions he hurt all over the place. She was able to sleep 5 and half hour yesterday. Plan for modified barium swallow study today 07/20/17-patient seen and examined, she passed barium modified swallow study yesterday. BP soft. Patient requesting more narcotics and states pain is at 8/ 10 in intensity 07/21/17-patient seen and examined, states she's had a good night sleep. No issues. Objective Vitals Vital Signs Date Time Temp Pulse Resp B/P (MAP) Pulse Ox O2 Delivery O2 Flow Rate FiO2 07/21/17 09:15 97.2 88 16 105/71 (82) 98 07/21/17 04:32 98.8 88 18 112/68 (83) 96 07/21/17 00:30 97.2 102 20 95/57 (70) 97 07/20/17 20:00 98.3 103 18 99/70 (80) 94 07/20/17 17:56 92 07/20/17 17:12 97.7 98 16 94/59 (71) 96 07/20/17 12:31 98.0 98 16 91/60 (70) 93 I/O 07/20/17 07/20/17 07/20/17 07/21/17 07/21/17 07/21/17 07:00 15:00 23:00 07:00 15:00 23:00 Intake Total 936 ml 120 ml Balance 936 ml 120 ml Intake Oral 120 ml Tube Feeding 836 ml Other 100 ml # Voids 8 3 1 # Bowel Movements 1 2 0 Result Diagram: 07/17/1793107/17/172032 Objective Remarks GENERAL: NAD SKIN: Warm and dry. HEAD: Normocephalic. EYES: No scleral icterus. No injection or drainage. NECK: Supple, trachea midline. No JVD or lymphadenopathy. CARDIOVASCULAR: Regular rate and rhythm without murmurs, gallops, or rubs. RESPIRATORY: Breath sounds equal bilaterally. No accessory muscle use. GASTROINTESTINAL: Abdomen soft, non-tender, nondistended. PEG tube in place MUSCULOSKELETAL: No cyanosis, or edema. BACK: Nontender without obvious deformity. No CVA tenderness. A/P Problem List: (1) Acute respiratory failure ICD Code: J96.00 - Acute respiratory failure, unspecified whether with hypoxia or hypercapnia (2) Anxiety ICD Code: F41.9 - Anxiety disorder, unspecified (3) COPD (chronic obstructive pulmonary disease) ICD Code: J44.9 - Chronic obstructive pulmonary disease, unspecified (4) Chronically on benzodiazepine therapy ICD Code: Z79.899 - Other retirement (current) drug therapy (5) Low TSH level ICD Code: R94.6 - Abnormal results of thyroid function studies (6) Elevated troponin ICD Code: R74.8 - Abnormal levels of other serum enzymes (7) Elevated CPK ICD Code: R74.8 - Abnormal levels of other serum enzymes (8) Serum ammonia increased ICD Code: E72.20 - Disorder of urea cycle metabolism, unspecified (9) Elevated transaminase level ICD Code: R74.0 - Nonspecific elevation of levels of transaminase and lactic acid dehydrogenase [LDH] (10) Lactic acidosis ICD Code: E87.2 - Acidosis (11) Hyperglycemia ICD Code: R73.9 - Hyperglycemia, unspecified (12) Tobacco abuse ICD Code: Z72.0 - Tobacco use (13) Tetrahydrocannabinol (THC) use disorder, mild, abuse ICD Code: F12.10 - Cannabis abuse, uncomplicated (14) Acute kidney injury ICD Code: N17.9 - Acute kidney failure, unspecified (15) Thrombocytopenia ICD Code: D69.6 - Thrombocytopenia, unspecified (16) Polycythemia ICD Code: D75.1 - Secondary polycythemia (17) CVA (cerebral vascular accident) ICD Code: I63.9 - Cerebral infarction, unspecified (18) Stroke ICD Code: I63.9 - Cerebral infarction, unspecified Status: Acute (19) Incontinence ICD Code: R32 - Unspecified urinary incontinence (20) Cystitis ICD Code: N30.90 - Cystitis, unspecified without hematuria Assessment and Plan 62-year-old female with 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 Continue with aspirin LDL 36 therefore statin not indicated PT/OT/speech therapy Appreciate input from neurology Continue current treatment Possible aspiration pneumonia-resolved Completed Augmentin 07/16/17 Hyperammonemia-resolved Continue lactulose daily Monitor ammonia level accordingly Acute hypoxemic respiratory failure Resolved Continue with DuoNeb when necessary and maintain oxygen saturation above 92% Hypertension Cardiomyopathy 2-D echo revealed LVEF of 45%. Continue beta marilou. PRN antihypertensives Appreciate input from cardiology Dysphagia Continue with tube feed as well as thickened liquid diet Passed modified barium swallow study 07/19/17 History of chronic of chronic benzodiazepine use Advised on cessation Upper GI bleed Elevated transaminases Elevated ammonia Hypoalbuminemia Hepatitis C antibody positive Rectal bleeding: Currently on Protonix Appreciate input from GI who signed off HIDA scan 06/28 with distended gallbladder-no evidence of acute cholecystitis s/p PEG placement H&H stable History of incontinence Persaud care Acute kidney injury Resolved Thrombocytopenia Monitor CBC . Follow trends Stenotrophomonas pneumonia Resolved status post treatment with antibiotics Prophylaxis - GI - PO Protonix - DVT - SCD/heparin subcutaneous on hold due to GI bleed. Problem Qualifiers (1) COPD (chronic obstructive pulmonary disease): Qualified Codes: J43.9 - Emphysema, unspecified (2) CVA (cerebral vascular accident): Qualified Codes: I63.9 - Cerebral infarction, unspecified (3) Stroke: Qualified Codes: I63.9 - Cerebral infarction, unspecified (4) Incontinence: Qualified Codes: R32 - Unspecified urinary incontinence James Georges MD Jul 21, 2017 10:54
[2017-07-21] MEDS: RESP: ALBUTEROL 2.5 MG/IPRATROPIUM 0.5 MG NEB (PRN) NEB ×2 (15:41)
[2017-07-21] MEDS: CHLORHEXIDINE GLUCONATE 2 % 1 PACK (2 CLOTHS) TOP SCH ×2 (21:05)
[2017-07-22] VITALS (9 sets, daily range): BP systolic 96–110; BP diastolic 55–77; PULSE 78–108; RESP 18–20; TEMP 97.3–98.3; O2SAT 95–98
[2017-07-22] MEDS: TEMAZEPAM 15 MG CAP PO PRN ×2 (00:11)
[2017-07-22] MEDS: oxyCODONE/ACETAMINOPHEN 7.5 MG/325 MG TAB PO PRN ×10 (04:05→21:39)
[2017-07-22] MEDS: METOPROLOL TARTRATE 25 MG TAB PO SCH ×6 (06:00→21:40)
[2017-07-22] MEDS: CHLORHEXIDINE 0.12% (ORAL KIT) 15 ML CUP MT SCH ×4 (08:00→21:40)
[2017-07-22] MEDS: ARTIFICIAL TEARS OPTH SOLN 15 ML BTL EACH EYE SCH ×6 (09:00→17:15)
[2017-07-22] MEDS: LACTOBACILLUS ACIDOPHILUS 1 GM PACKET PO SCH ×4 (09:00→21:39)
[2017-07-22] MEDS: SODIUM CHLORIDE 0.9% FLUSH 10 ML FLUSH IV FLUSH SCH ×4 (09:00→21:39)
[2017-07-22] MEDS: PANTOPRAZOLE SOD 40 MG DELAYED RELEASE TAB PO SCH ×4 (09:09→21:39)
[2017-07-22] MEDS: ASPIRIN 81 MG CHEW TAB PO SCH ×2 (09:09)
[2017-07-22] MEDS: LISINOPRIL 10 MG TAB PO SCH ×2 (09:09)
[2017-07-22] MEDS: RIFAXIMIN 550 MG TAB PO SCH ×4 (09:09→21:39)
[2017-07-22] MEDS: LACTULOSE SYRUP 20 GM/30 ML CUP PO SCH ×2 (09:10)
--- NOTE | 2017-07-22 10:46 | HHI.PR ---
Subjective Remarks Follow-up CVA 07/16/17-patient seen and examined, no acute event overnight and currently stable. Patient with expressive aphasia 07/17/17-patient seen and examined, stable and tolerating tube feed. Patient ambulated without any assistance. Currently afebrile 07/18/17-patient seen and examined, continue to remain stable and has no complaint 07/19/17-patient seen and examined, requesting stronger narcotics. Mentions he hurt all over the place. She was able to sleep 5 and half hour yesterday. Plan for modified barium swallow study today 07/20/17-patient seen and examined, she passed barium modified swallow study yesterday. BP soft. Patient requesting more narcotics and states pain is at 8/ 10 in intensity 07/21/17-patient seen and examined, states she's had a good night sleep. No issues. 07/22/17-patient seen and examined, no issues overnight and patient stable Objective Vitals Vital Signs Date Time Temp Pulse Resp B/P (MAP) Pulse Ox O2 Delivery O2 Flow Rate FiO2 07/22/17 08:28 97.3 94 18 100/64 (76) 96 07/22/17 04:22 97.7 89 18 103/57 (72) 95 07/22/17 02:44 96 Nasal Cannula 2.00 07/22/17 01:21 97.7 108 18 110/77 (88) 96 07/21/17 22:19 94 07/21/17 20:36 97.8 95 18 116/62 (80) 97 07/21/17 20:19 98 Nasal Cannula 2.00 07/21/17 16:51 97.9 103 16 103/73 (83) 98 07/21/17 13:15 98.0 103 16 106/75 (85) 100 I/O 07/21/17 07/21/17 07/21/17 07/22/17 07/22/17 07/22/17 07:00 15:00 23:00 07:00 15:00 23:00 Intake Total 476 ml Balance 476 ml Intake Oral 476 ml # Voids 1 3 2 # Bowel Movements 0 1 2 Objective Remarks GENERAL: NAD SKIN: Warm and dry. HEAD: Normocephalic. EYES: No scleral icterus. No injection or drainage. NECK: Supple, trachea midline. No JVD or lymphadenopathy. CARDIOVASCULAR: Regular rate and rhythm without murmurs, gallops, or rubs. RESPIRATORY: Breath sounds equal bilaterally. No accessory muscle use. GASTROINTESTINAL: Abdomen soft, non-tender, nondistended. PEG tube in place MUSCULOSKELETAL: No cyanosis, or edema. BACK: Nontender without obvious deformity. No CVA tenderness. 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 (5) Low TSH level ICD Code: R94.6 - Abnormal results of thyroid function studies (6) Elevated troponin ICD Code: R74.8 - Abnormal levels of other serum enzymes (7) Elevated CPK ICD Code: R74.8 - Abnormal levels of other serum enzymes (8) Serum ammonia increased ICD Code: E72.20 - Disorder of urea cycle metabolism, unspecified (9) Elevated transaminase level ICD Code: R74.0 - Nonspecific elevation of levels of transaminase and lactic acid dehydrogenase [LDH] (10) Lactic acidosis ICD Code: E87.2 - Acidosis (11) Hyperglycemia ICD Code: R73.9 - Hyperglycemia, unspecified (12) Tobacco abuse ICD Code: Z72.0 - Tobacco use (13) Tetrahydrocannabinol (THC) use disorder, mild, abuse ICD Code: F12.10 - Cannabis abuse, uncomplicated (14) Acute kidney injury ICD Code: N17.9 - Acute kidney failure, unspecified (15) Thrombocytopenia ICD Code: D69.6 - Thrombocytopenia, unspecified (16) Polycythemia ICD Code: D75.1 - Secondary polycythemia (17) CVA (cerebral vascular accident) ICD Code: I63.9 - Cerebral infarction, unspecified (18) Stroke ICD Code: I63.9 - Cerebral infarction, unspecified Status: Acute (19) Incontinence ICD Code: R32 - Unspecified urinary incontinence (20) Cystitis ICD Code: N30.90 - Cystitis, unspecified without hematuria Assessment and Plan 62-year-old female with 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 Continue with aspirin LDL 36 therefore statin is not indicated PT/OT/speech therapy Appreciate input from neurology Continue current treatment Possible aspiration pneumonia-resolved Completed Augmentin 07/16/17 Hyperammonemia-resolved Continue lactulose daily Monitor ammonia level accordingly Acute hypoxemic respiratory failure Resolved Continue with DuoNeb when necessary and maintain oxygen saturation above 92% Hypertension Cardiomyopathy 2-D echo revealed LVEF of 45%. Continue beta marilou. PRN antihypertensives Appreciate input from cardiology who signed off Dysphagia Continue with tube feed as well as thickened liquid diet Passed modified barium swallow study 07/19/17 History of chronic of chronic benzodiazepine use Advised on cessation Upper GI bleed Elevated transaminases Elevated ammonia Hypoalbuminemia Hepatitis C antibody positive Rectal bleeding: Currently on Protonix Appreciate input from GI who signed off HIDA scan 06/28 with distended gallbladder-no evidence of acute cholecystitis s/p PEG placement H&H stable History of incontinence Resolved Acute kidney injury Resolved Thrombocytopenia Monitor CBC . Follow trends Stenotrophomonas pneumonia Resolved status post treatment with antibiotics Prophylaxis - GI - PO Protonix - DVT - SCD/heparin subcutaneous on hold due to GI bleed. Problem Qualifiers (1) COPD (chronic obstructive pulmonary disease): Qualified Codes: J43.9 - Emphysema, unspecified (2) CVA (cerebral vascular accident): Qualified Codes: I63.9 - Cerebral infarction, unspecified (3) Stroke: Qualified Codes: I63.9 - Cerebral infarction, unspecified (4) Incontinence: Qualified Codes: R32 - Unspecified urinary incontinence James Georges MD Jul 22, 2017 10:46
[2017-07-23] VITALS (8 sets, daily range): BP systolic 90–119; BP diastolic 52–96; PULSE 84–94; RESP 17–20; TEMP 97.8–98.1; O2SAT 91–98
[2017-07-23] MEDS: CHLORHEXIDINE GLUCONATE 2 % 1 PACK (2 CLOTHS) TOP SCH ×2 (00:20)
[2017-07-23] MEDS: oxyCODONE/ACETAMINOPHEN 7.5 MG/325 MG TAB PO PRN ×10 (02:57→20:59)
[2017-07-23] MEDS: METOPROLOL TARTRATE 25 MG TAB PO SCH ×6 (06:00→21:03)
[2017-07-23] MEDS: CHLORHEXIDINE 0.12% (ORAL KIT) 15 ML CUP MT SCH ×4 (08:00→20:00)
[2017-07-23] MEDS: RIFAXIMIN 550 MG TAB PO SCH ×4 (08:08→20:58)
[2017-07-23] MEDS: LISINOPRIL 10 MG TAB PO SCH ×2 (08:08)
[2017-07-23] MEDS: LACTULOSE SYRUP 20 GM/30 ML CUP PO SCH ×2 (08:08)
[2017-07-23] MEDS: LACTOBACILLUS ACIDOPHILUS 1 GM PACKET PO SCH ×4 (08:08→20:58)
[2017-07-23] MEDS: ASPIRIN 81 MG CHEW TAB PO SCH ×2 (08:08)
[2017-07-23] MEDS: PANTOPRAZOLE SOD 40 MG DELAYED RELEASE TAB PO SCH ×4 (08:09→20:58)
[2017-07-23] MEDS: ARTIFICIAL TEARS OPTH SOLN 15 ML BTL EACH EYE SCH ×6 (08:09→17:49)
[2017-07-23] MEDS: SODIUM CHLORIDE 0.9% FLUSH 10 ML FLUSH IV FLUSH SCH ×4 (09:00→20:58)
--- NOTE | 2017-07-23 10:29 | HHI.PR ---
Subjective Remarks Follow-up CVA 07/16/17-patient seen and examined, no acute event overnight and currently stable. Patient with expressive aphasia 07/17/17-patient seen and examined, stable and tolerating tube feed. Patient ambulated without any assistance. Currently afebrile 07/18/17-patient seen and examined, continue to remain stable and has no complaint 07/19/17-patient seen and examined, requesting stronger narcotics. Mentions he hurt all over the place. She was able to sleep 5 and half hour yesterday. Plan for modified barium swallow study today 07/20/17-patient seen and examined, she passed barium modified swallow study yesterday. BP soft. Patient requesting more narcotics and states pain is at 8/ 10 in intensity 07/21/17-patient seen and examined, states she's had a good night sleep. No issues. 07/22/17-patient seen and examined, no issues overnight and patient stable 07/23/17-she denies any acute event overnight, sleeping better. Afebrile. Patient was observed yesterday ambulating the hallway with assistance Objective Vitals Vital Signs Date Time Temp Pulse Resp B/P (MAP) Pulse Ox O2 Delivery O2 Flow Rate FiO2 07/23/17 08:21 104/74 (84) 07/23/17 08:20 98.0 84 18 90/62 (71) 98 07/23/17 05:04 97.8 86 17 116/96 (103) 96 07/23/17 01:12 97.8 85 17 90/52 (65) 95 07/22/17 23:31 81 07/22/17 20:00 97.7 78 20 96/55 (69) 97 07/22/17 16:25 97.9 78 18 99/62 (74) 98 07/22/17 12:30 91 07/22/17 11:57 98.3 98 18 96/65 (75) 97 I/O 07/22/17 07/22/17 07/22/17 07/23/17 07/23/17 07/23/17 07:00 15:00 23:00 07:00 15:00 23:00 Intake Total 476 ml 300 ml 840 ml Balance 476 ml 300 ml 840 ml Intake Oral 476 ml 300 ml 360 ml Tube Feeding 480 ml # Voids 2 3 2 # Bowel Movements 2 1 Objective Remarks GENERAL: NAD SKIN: Warm and dry. HEAD: Normocephalic. EYES: No scleral icterus. No injection or drainage. NECK: Supple, trachea midline. No JVD or lymphadenopathy. CARDIOVASCULAR: Regular rate and rhythm without murmurs, gallops, or rubs. RESPIRATORY: Breath sounds equal bilaterally. No accessory muscle use. GASTROINTESTINAL: Abdomen soft, non-tender, nondistended. PEG tube in place MUSCULOSKELETAL: No cyanosis, or edema. BACK: Nontender without obvious deformity. No CVA tenderness. A/P Problem List: (1) Acute respiratory failure ICD Code: J96.00 - Acute respiratory failure, unspecified whether with hypoxia or hypercapnia (2) Anxiety ICD Code: F41.9 - Anxiety disorder, unspecified (3) COPD (chronic obstructive pulmonary disease) ICD Code: J44.9 - Chronic obstructive pulmonary disease, unspecified (4) Chronically on benzodiazepine therapy ICD Code: Z79.899 - Other snf (current) drug therapy (5) Low TSH level ICD Code: R94.6 - Abnormal results of thyroid function studies (6) Elevated troponin ICD Code: R74.8 - Abnormal levels of other serum enzymes (7) Elevated CPK ICD Code: R74.8 - Abnormal levels of other serum enzymes (8) Serum ammonia increased ICD Code: E72.20 - Disorder of urea cycle metabolism, unspecified (9) Elevated transaminase level ICD Code: R74.0 - Nonspecific elevation of levels of transaminase and lactic acid dehydrogenase [LDH] (10) Lactic acidosis ICD Code: E87.2 - Acidosis (11) Hyperglycemia ICD Code: R73.9 - Hyperglycemia, unspecified (12) Tobacco abuse ICD Code: Z72.0 - Tobacco use (13) Tetrahydrocannabinol (THC) use disorder, mild, abuse ICD Code: F12.10 - Cannabis abuse, uncomplicated (14) Acute kidney injury ICD Code: N17.9 - Acute kidney failure, unspecified (15) Thrombocytopenia ICD Code: D69.6 - Thrombocytopenia, unspecified (16) Polycythemia ICD Code: D75.1 - Secondary polycythemia (17) CVA (cerebral vascular accident) ICD Code: I63.9 - Cerebral infarction, unspecified (18) Stroke ICD Code: I63.9 - Cerebral infarction, unspecified Status: Acute (19) Incontinence ICD Code: R32 - Unspecified urinary incontinence (20) Cystitis ICD Code: N30.90 - Cystitis, unspecified without hematuria Assessment and Plan 62-year-old female with 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 Continue with aspirin LDL 36 therefore statin is not indicated PT/OT/speech therapy Appreciate input from neurology Continue current treatment Possible aspiration pneumonia-resolved s/p Augmentin 07/16/17 Hyperammonemia-resolved Continue lactulose daily Monitor ammonia level accordingly Acute hypoxemic respiratory failure Resolved Continue with DuoNeb when necessary and maintain oxygen saturation above 92% Hypertension Cardiomyopathy 2-D echo revealed LVEF of 45%. Continue beta marilou. PRN antihypertensives Appreciate input from cardiology who signed off Dysphagia Continue with tube feed as well as thickened liquid diet Passed modified barium swallow study 07/19/17 History of chronic of chronic benzodiazepine use Advised on cessation Upper GI bleed Elevated transaminases Elevated ammonia Hypoalbuminemia Hepatitis C antibody positive Rectal bleeding: Currently on Protonix Appreciate input from GI who signed off HIDA scan 06/28 with distended gallbladder-no evidence of acute cholecystitis s/p PEG placement H&H stable History of incontinence Resolved Acute kidney injury Resolved Thrombocytopenia Monitor CBC . Stenotrophomonas pneumonia Resolved status post treatment with antibiotics Prophylaxis - GI - PO Protonix - DVT - SCD/heparin subcutaneous on hold due to GI bleed. Problem Qualifiers (1) COPD (chronic obstructive pulmonary disease): Qualified Codes: J43.9 - Emphysema, unspecified (2) CVA (cerebral vascular accident): Qualified Codes: I63.9 - Cerebral infarction, unspecified (3) Stroke: Qualified Codes: I63.9 - Cerebral infarction, unspecified (4) Incontinence: Qualified Codes: R32 - Unspecified urinary incontinence James Georges MD Jul 23, 2017 10:29
[2017-07-23] MEDS: RESP: ALBUTEROL 2.5 MG/IPRATROPIUM 0.5 MG NEB (PRN) NEB ×2 (22:22)
[2017-07-23] MEDS: TEMAZEPAM 15 MG CAP PO PRN ×2 (23:08)
[2017-07-24] VITALS (10 sets, daily range): BP systolic 92–158; BP diastolic 63–73; PULSE 71–102; RESP 18–20; TEMP 97.2–97.8; O2SAT 92–99
[2017-07-24] MEDS: CHLORHEXIDINE GLUCONATE 2 % 1 PACK (2 CLOTHS) TOP SCH ×2 (04:00)
[2017-07-24] MEDS: oxyCODONE/ACETAMINOPHEN 7.5 MG/325 MG TAB PO PRN ×10 (04:27→21:46)
[2017-07-24] MEDS: METOPROLOL TARTRATE 25 MG TAB PO SCH ×6 (06:00→21:47)
[2017-07-24] MEDS: LISINOPRIL 10 MG TAB PO SCH ×2 (08:28)
[2017-07-24] MEDS: ASPIRIN 81 MG CHEW TAB PO SCH ×2 (08:28)
[2017-07-24] MEDS: PANTOPRAZOLE SOD 40 MG DELAYED RELEASE TAB PO SCH ×4 (08:28→21:46)
[2017-07-24] MEDS: RIFAXIMIN 550 MG TAB PO SCH ×4 (08:29→21:47)
[2017-07-24] MEDS: LACTULOSE SYRUP 20 GM/30 ML CUP PO SCH ×2 (08:29)
[2017-07-24] MEDS: ARTIFICIAL TEARS OPTH SOLN 15 ML BTL EACH EYE SCH ×6 (09:00→18:00)
--- NOTE | 2017-07-24 11:16 | HHI.PR ---
Subjective Remarks Follow-up CVA 07/16/17-patient seen and examined, no acute event overnight and currently stable. Patient with expressive aphasia 07/17/17-patient seen and examined, stable and tolerating tube feed. Patient ambulated without any assistance. Currently afebrile 07/18/17-patient seen and examined, continue to remain stable and has no complaint 07/19/17-patient seen and examined, requesting stronger narcotics. Mentions he hurt all over the place. She was able to sleep 5 and half hour yesterday. Plan for modified barium swallow study today 07/20/17-patient seen and examined, she passed barium modified swallow study yesterday. BP soft. Patient requesting more narcotics and states pain is at 8/ 10 in intensity 07/21/17-patient seen and examined, states she's had a good night sleep. No issues. 07/22/17-patient seen and examined, no issues overnight and patient stable 07/23/17-she denies any acute event overnight, sleeping better. Afebrile. Patient was observed yesterday ambulating the hallway with assistance 07/24/17-stable and no complaint. Tolerating current diet. Objective Vitals Vital Signs Date Time Temp Pulse Resp B/P (MAP) Pulse Ox O2 Delivery O2 Flow Rate FiO2 07/24/17 07:53 97.5 89 18 119/73 (88) 98 07/24/17 05:33 97.4 96 20 92/68 (76) 99 07/24/17 01:48 97.2 84 18 107/69 (82) 97 07/23/17 22:24 94 Nasal Cannula 2.00 07/23/17 21:25 98.1 94 18 110/68 (82) 97 07/23/17 12:30 91 07/23/17 12:12 97.9 91 20 119/55 (76) 91 I/O 07/23/17 07/23/17 07/23/17 07/24/17 07/24/17 07/24/17 07:00 15:00 23:00 07:00 15:00 23:00 Intake Total 840 ml 960 ml 360 ml Balance 840 ml 960 ml 360 ml Intake Oral 360 ml 960 ml 360 ml Tube Feeding 480 ml # Voids 2 1 # Bowel Movements 1 Objective Remarks GENERAL: NAD SKIN: Warm and dry. HEAD: Normocephalic. EYES: No scleral icterus. No injection or drainage. NECK: Supple, trachea midline. No JVD or lymphadenopathy. CARDIOVASCULAR: Regular rate and rhythm without murmurs, gallops, or rubs. RESPIRATORY: Breath sounds equal bilaterally. No accessory muscle use. GASTROINTESTINAL: Abdomen soft, non-tender, nondistended. PEG tube in place MUSCULOSKELETAL: No cyanosis, or edema. BACK: Nontender without obvious deformity. No CVA tenderness. A/P Problem List: (1) Acute respiratory failure ICD Code: J96.00 - Acute respiratory failure, unspecified whether with hypoxia or hypercapnia (2) Anxiety ICD Code: F41.9 - Anxiety disorder, unspecified (3) COPD (chronic obstructive pulmonary disease) ICD Code: J44.9 - Chronic obstructive pulmonary disease, unspecified (4) Chronically on benzodiazepine therapy ICD Code: Z79.899 - Other orthopaedic doctor (current) drug therapy (5) Low TSH level ICD Code: R94.6 - Abnormal results of thyroid function studies (6) Elevated troponin ICD Code: R74.8 - Abnormal levels of other serum enzymes (7) Elevated CPK ICD Code: R74.8 - Abnormal levels of other serum enzymes (8) Serum ammonia increased ICD Code: E72.20 - Disorder of urea cycle metabolism, unspecified (9) Elevated transaminase level ICD Code: R74.0 - Nonspecific elevation of levels of transaminase and lactic acid dehydrogenase [LDH] (10) Lactic acidosis ICD Code: E87.2 - Acidosis (11) Hyperglycemia ICD Code: R73.9 - Hyperglycemia, unspecified (12) Tobacco abuse ICD Code: Z72.0 - Tobacco use (13) Tetrahydrocannabinol (THC) use disorder, mild, abuse ICD Code: F12.10 - Cannabis abuse, uncomplicated (14) Acute kidney injury ICD Code: N17.9 - Acute kidney failure, unspecified (15) Thrombocytopenia ICD Code: D69.6 - Thrombocytopenia, unspecified (16) Polycythemia ICD Code: D75.1 - Secondary polycythemia (17) CVA (cerebral vascular accident) ICD Code: I63.9 - Cerebral infarction, unspecified (18) Stroke ICD Code: I63.9 - Cerebral infarction, unspecified Status: Acute (19) Incontinence ICD Code: R32 - Unspecified urinary incontinence (20) Cystitis ICD Code: N30.90 - Cystitis, unspecified without hematuria Assessment and Plan 62-year-old female with 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 Continue with aspirin LDL 36 therefore statin is not indicated PT/OT/speech therapy Appreciate input from neurology Continue current treatment Possible aspiration pneumonia-resolved s/p Augmentin 07/16/17 Hyperammonemia-resolved Continue lactulose daily Monitor ammonia level accordingly Acute hypoxemic respiratory failure Resolved Continue with DuoNeb when necessary and maintain oxygen saturation above 92% Hypertension Cardiomyopathy 2-D echo revealed LVEF of 45%. Continue beta marilou. PRN antihypertensives Appreciate input from cardiology who signed off Dysphagia Continue with tube feed as well as thickened liquid diet History of chronic of chronic benzodiazepine use Advised on cessation Upper GI bleed Elevated transaminases Elevated ammonia Hypoalbuminemia Hepatitis C antibody positive Rectal bleeding: Currently on Protonix Appreciate input from GI who signed off HIDA scan 06/28 with distended gallbladder-no evidence of acute cholecystitis s/p PEG placement H&H stable History of incontinence Resolved Acute kidney injury Resolved Thrombocytopenia Monitor CBC . Stenotrophomonas pneumonia Resolved status post treatment with antibiotics Prophylaxis - GI - PO Protonix - DVT - SCD/heparin subcutaneous on hold due to GI bleed. Continue current treatment Problem Qualifiers (1) COPD (chronic obstructive pulmonary disease): Qualified Codes: J43.9 - Emphysema, unspecified (2) CVA (cerebral vascular accident): Qualified Codes: I63.9 - Cerebral infarction, unspecified (3) Stroke: Qualified Codes: I63.9 - Cerebral infarction, unspecified (4) Incontinence: Qualified Codes: R32 - Unspecified urinary incontinence James Georges MD Jul 24, 2017 11:16
[2017-07-24] MEDS: RESP: ALBUTEROL 2.5 MG/IPRATROPIUM 0.5 MG NEB (PRN) NEB ×4 (11:17→19:34)
[2017-07-24] MEDS: LACTOBACILLUS ACIDOPHILUS 1 GM PACKET PO SCH ×4 (12:55→21:47)
[2017-07-24] MEDS: SODIUM CHLORIDE 0.9% FLUSH 10 ML FLUSH IV FLUSH SCH ×4 (12:55→21:47)
[2017-07-24] MEDS: CHLORHEXIDINE 0.12% (ORAL KIT) 15 ML CUP MT SCH ×4 (20:00→21:47)
[2017-07-24] MEDS: TEMAZEPAM 15 MG CAP PO PRN ×2 (23:30)
[2017-07-25] VITALS (10 sets, daily range): BP systolic 91–124; BP diastolic 51–67; PULSE 73–96; RESP 16–18; TEMP 97.6–98.3; O2SAT 96–98
[2017-07-25] MEDS: oxyCODONE/ACETAMINOPHEN 7.5 MG/325 MG TAB PO PRN ×12 (02:54→21:01)
[2017-07-25] MEDS: CHLORHEXIDINE GLUCONATE 2 % 1 PACK (2 CLOTHS) TOP SCH ×2 (04:00)
[2017-07-25] MEDS: METOPROLOL TARTRATE 25 MG TAB PO SCH ×6 (05:21→21:01)
[2017-07-25] MEDS: CHLORHEXIDINE 0.12% (ORAL KIT) 15 ML CUP MT SCH ×4 (08:00→20:00)
[2017-07-25] MEDS: PANTOPRAZOLE SOD 40 MG DELAYED RELEASE TAB PO SCH ×4 (08:05→21:01)
[2017-07-25] MEDS: LACTULOSE SYRUP 20 GM/30 ML CUP PO SCH ×2 (08:05)
[2017-07-25] MEDS: RIFAXIMIN 550 MG TAB PO SCH ×4 (08:06→21:01)
[2017-07-25] MEDS: ASPIRIN 81 MG CHEW TAB PO SCH ×2 (08:06)
[2017-07-25] MEDS: LISINOPRIL 10 MG TAB PO SCH ×4 (08:06→08:10)
[2017-07-25] MEDS: SODIUM CHLORIDE 0.9% FLUSH 10 ML FLUSH IV FLUSH SCH ×4 (08:07→21:01)
[2017-07-25] MEDS ORDERED: SODIUM CHLORIDE 0.9% FLUSH 5 ML FLUSH IV FLUSH PRN ×2 (11:15)
--- NOTE | 2017-07-25 11:18 | HHI.PR ---
Subjective Remarks Follow-up CVA 07/16/17-patient seen and examined, no acute event overnight and currently stable. Patient with expressive aphasia 07/17/17-patient seen and examined, stable and tolerating tube feed. Patient ambulated without any assistance. Currently afebrile 07/18/17-patient seen and examined, continue to remain stable and has no complaint 07/19/17-patient seen and examined, requesting stronger narcotics. Mentions he hurt all over the place. She was able to sleep 5 and half hour yesterday. Plan for modified barium swallow study today 07/20/17-patient seen and examined, she passed barium modified swallow study yesterday. BP soft. Patient requesting more narcotics and states pain is at 8/ 10 in intensity 07/21/17-patient seen and examined, states she's had a good night sleep. No issues. 07/22/17-patient seen and examined, no issues overnight and patient stable 07/23/17-she denies any acute event overnight, sleeping better. Afebrile. Patient was observed yesterday ambulating the hallway with assistance 07/24/17-stable and no complaint. Tolerating current diet. 07/25/17-patient seen and examined, afebrile and no acute event overnight. Patient is requesting to be up and to ambulate more Objective Vitals Vital Signs Date Time Temp Pulse Resp B/P (MAP) Pulse Ox O2 Delivery O2 Flow Rate FiO2 07/25/17 09:41 96 Nasal Cannula 2.00 07/25/17 09:06 16 07/25/17 08:08 97.6 89 16 105/63 (77) 96 07/25/17 05:33 97.6 78 18 91/51 (64) 96 07/25/17 03:49 73 07/25/17 01:14 97.6 74 18 101/53 (69) 96 07/24/17 21:11 102 07/24/17 20:14 97.8 71 18 158/71 (100) 96 07/24/17 19:34 98 Nasal Cannula 2.00 07/24/17 16:33 88 07/24/17 15:35 97.7 98 20 122/63 (82) 92 07/24/17 11:46 97.4 95 18 152/68 (96) 97 07/24/17 11:17 98 Nasal Cannula 2.00 I/O 07/24/17 07/24/17 07/24/17 07/25/17 07/25/17 07/25/17 07:00 15:00 23:00 07:00 15:00 23:00 Intake Total 720 ml 1460 ml Output Total 1 ml Balance 720 ml 1459 ml Intake Oral 720 ml 360 ml Tube Feeding 980 ml Other 120 ml Stool Total 1 ml # Voids 1 3 1 4 # Bowel Movements 1 1 Objective Remarks GENERAL: NAD SKIN: Warm and dry. HEAD: Normocephalic. EYES: No scleral icterus. No injection or drainage. NECK: Supple, trachea midline. No JVD or lymphadenopathy. CARDIOVASCULAR: Regular rate and rhythm without murmurs, gallops, or rubs. RESPIRATORY: Breath sounds equal bilaterally. No accessory muscle use. GASTROINTESTINAL: Abdomen soft, non-tender, nondistended. PEG tube in place MUSCULOSKELETAL: No cyanosis, or edema. BACK: Nontender without obvious deformity. No CVA tenderness. A/P Problem List: (1) Acute respiratory failure ICD Code: J96.00 - Acute respiratory failure, unspecified whether with hypoxia or hypercapnia (2) Anxiety ICD Code: F41.9 - Anxiety disorder, unspecified (3) COPD (chronic obstructive pulmonary disease) ICD Code: J44.9 - Chronic obstructive pulmonary disease, unspecified (4) Chronically on benzodiazepine therapy ICD Code: Z79.899 - Other intermediate project manager (current) drug therapy (5) Low TSH level ICD Code: R94.6 - Abnormal results of thyroid function studies (6) Elevated troponin ICD Code: R74.8 - Abnormal levels of other serum enzymes (7) Elevated CPK ICD Code: R74.8 - Abnormal levels of other serum enzymes (8) Serum ammonia increased ICD Code: E72.20 - Disorder of urea cycle metabolism, unspecified (9) Elevated transaminase level ICD Code: R74.0 - Nonspecific elevation of levels of transaminase and lactic acid dehydrogenase [LDH] (10) Lactic acidosis ICD Code: E87.2 - Acidosis (11) Hyperglycemia ICD Code: R73.9 - Hyperglycemia, unspecified (12) Tobacco abuse ICD Code: Z72.0 - Tobacco use (13) Tetrahydrocannabinol (THC) use disorder, mild, abuse ICD Code: F12.10 - Cannabis abuse, uncomplicated (14) Acute kidney injury ICD Code: N17.9 - Acute kidney failure, unspecified (15) Thrombocytopenia ICD Code: D69.6 - Thrombocytopenia, unspecified (16) Polycythemia ICD Code: D75.1 - Secondary polycythemia (17) CVA (cerebral vascular accident) ICD Code: I63.9 - Cerebral infarction, unspecified (18) Stroke ICD Code: I63.9 - Cerebral infarction, unspecified Status: Acute (19) Incontinence ICD Code: R32 - Unspecified urinary incontinence (20) Cystitis ICD Code: N30.90 - Cystitis, unspecified without hematuria Assessment and Plan 62-year-old female with 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 Continue with aspirin LDL 36 therefore statin is not indicated PT/OT/speech therapy Appreciate input from neurology Continue current treatment Possible aspiration pneumonia-resolved s/p Augmentin 07/16/17 Hyperammonemia-resolved Continue lactulose daily Monitor ammonia level accordingly Acute hypoxemic respiratory failure Resolved Continue with DuoNeb when necessary and maintain oxygen saturation above 92% Hypertension Cardiomyopathy 2-D echo revealed LVEF of 45%. Continue beta marilou. PRN antihypertensives Appreciate input from cardiology who signed off Dysphagia Continue with tube feed as well as thickened liquid diet Increase tube feeds to 45 cc/hour Repeat modified barium swallow study this week History of chronic of chronic benzodiazepine use Advised on cessation Upper GI bleed Elevated transaminases Elevated ammonia Hypoalbuminemia Hepatitis C antibody positive Rectal bleeding: Currently on Protonix Appreciate input from GI who signed off HIDA scan 06/28 with distended gallbladder-no evidence of acute cholecystitis s/p PEG placement H&H stable History of incontinence Resolved Acute kidney injury Resolved Thrombocytopenia Monitor CBC . Stenotrophomonas pneumonia Resolved status post treatment with antibiotics Prophylaxis - GI - PO Protonix - DVT - SCD/heparin subcutaneous on hold due to GI bleed. Continue current treatment Problem Qualifiers (1) COPD (chronic obstructive pulmonary disease): Qualified Codes: J43.9 - Emphysema, unspecified (2) CVA (cerebral vascular accident): Qualified Codes: I63.9 - Cerebral infarction, unspecified (3) Stroke: Qualified Codes: I63.9 - Cerebral infarction, unspecified (4) Incontinence: Qualified Codes: R32 - Unspecified urinary incontinence James Georges MD Jul 25, 2017 11:17
[2017-07-25] MEDS: RESP: ALBUTEROL 2.5 MG/IPRATROPIUM 0.5 MG NEB (PRN) NEB ×2 (11:26)
[2017-07-25] MEDS: LACTOBACILLUS ACIDOPHILUS 1 GM PACKET PO SCH ×4 (12:34→21:09)
[2017-07-25] MEDS: ARTIFICIAL TEARS OPTH SOLN 15 ML BTL EACH EYE SCH ×6 (12:34→16:40)
[2017-07-25] MEDS: TEMAZEPAM 15 MG CAP PO PRN ×2 (22:55)
[2017-07-26] VITALS (9 sets, daily range): BP systolic 96–114; BP diastolic 57–71; PULSE 75–95; RESP 18; TEMP 97.3–98.5; O2SAT 96–99
[2017-07-26] MEDS: oxyCODONE/ACETAMINOPHEN 7.5 MG/325 MG TAB PO PRN ×10 (03:13→20:53)
[2017-07-26] MEDS: CHLORHEXIDINE GLUCONATE 2 % 1 PACK (2 CLOTHS) TOP SCH ×2 (03:24)
[2017-07-26] MEDS: METOPROLOL TARTRATE 25 MG TAB PO SCH ×6 (06:00→20:54)
[2017-07-26] MEDS: LISINOPRIL 10 MG TAB PO SCH ×2 (08:25)
[2017-07-26] MEDS: LACTULOSE SYRUP 20 GM/30 ML CUP PO SCH ×2 (08:25)
[2017-07-26] MEDS: PANTOPRAZOLE SOD 40 MG DELAYED RELEASE TAB PO SCH ×4 (08:25→20:53)
[2017-07-26] MEDS: SODIUM CHLORIDE 0.9% FLUSH 10 ML FLUSH IV FLUSH SCH ×4 (08:26→20:53)
[2017-07-26] MEDS: ASPIRIN 81 MG CHEW TAB PO SCH ×2 (08:26)
[2017-07-26] MEDS: RIFAXIMIN 550 MG TAB PO SCH ×4 (08:26→20:53)
[2017-07-26] MEDS: LACTOBACILLUS ACIDOPHILUS 1 GM PACKET PO SCH ×4 (08:27→20:53)
[2017-07-26] MEDS: ARTIFICIAL TEARS OPTH SOLN 15 ML BTL EACH EYE SCH ×6 (08:28→18:31)
[2017-07-26] MEDS: CHLORHEXIDINE 0.12% (ORAL KIT) 15 ML CUP MT SCH ×4 (08:29→20:00)
--- NOTE | 2017-07-26 10:43 | HHI.PR ---
Subjective Remarks in no distress. denies pain. no new complaints. Objective Vitals Vital Signs Date Time Temp Pulse Resp B/P (MAP) Pulse Ox O2 Delivery O2 Flow Rate FiO2 07/26/17 09:58 86 07/26/17 09:57 98 2.00 07/26/17 08:00 97.7 90 18 114/67 (83) 98 07/26/17 05:45 97.3 82 18 108/71 (83) 96 07/26/17 00:00 97.6 95 18 102/59 (73) 98 07/25/17 21:00 75 07/25/17 20:00 98.1 88 18 124/62 (82) 98 07/25/17 20:00 95 2.00 07/25/17 16:00 98.3 80 18 101/67 (78) 98 07/25/17 12:00 98.0 96 18 100/61 (74) 98 I/O 07/25/17 07/25/17 07/25/17 07/26/17 07/26/17 07/26/17 07:00 15:00 23:00 07:00 15:00 23:00 Intake Total 1460 ml 375 ml 1448 ml Output Total 1 ml Balance 1459 ml 375 ml 1448 ml Intake Oral 360 ml 480 ml Tube Feeding 980 ml 375 ml 908 ml Other 120 ml 60 ml Stool Total 1 ml # Voids 4 4 Imaging Last Impressions Modified Barium Swallow 07/19/17 0000 Signed Impressions: Service Date/Time: Wednesday, July 19, 2017 00:00 - CONCLUSION: Penetration and aspiration as above within liquids, penetration with nectar thick consistency. Jude Braxton MD Chest X-Ray 07/09/17 0000 Signed Impressions: Service Date/Time: Sunday, July 09, 2017 14:04 - CONCLUSION: 1. Stable mild central bibasilar patchy airspace disease. 2. No significant interval change. Gustavo Santoro MD Head CT 07/06/17 0000 Signed Impressions: Service Date/Time: Thursday, July 06, 2017 09:07 - CONCLUSION: 1. 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 2. Mucous retention cyst within left maxillary and right sphenoid sinuses. Juan Pablo Huffman MD Abdomen X-Ray 07/01/17 1044 Signed Impressions: Service Date/Time: Saturday, July 01, 2017 10:45 - CONCLUSION: NG as above. Rudy Meng MD FACR Hepatobiliary Scan Nuclear Medicine 06/28/17 0900 Signed Impressions: Service Date/Time: Wednesday, June 28, 2017 10:17 - CONCLUSION: Nonspecific persistent distention of the gallbladder. No evidence of acute cholecystitis or biliary obstruction. Christopher Gutierrez MD Lung Scan-VQ Nuclear Medicine 06/24/17 0000 Signed Impressions: Service Date/Time: Saturday, June 24, 2017 12:21 - CONCLUSION: 1. Low probability of pulmonary embolism Jose Richard MD Head Magnetic Resonance Angiography 06/24/17 0000 Signed Impressions: Service Date/Time: Saturday, June 24, 2017 13:37 - CONCLUSION: Negative for major branch vessels obstruction in spite of MRI findings. Rudy eMng MD FACR Brain MRI 06/24/17 0000 Signed Impressions: Service Date/Time: Saturday, June 24, 2017 13:37 - CONCLUSION: Findings consistent with acute infarct left sylvian region anteriorly without hemorrhage. Rudy Meng MD FACR Carotid Artery Ultrasound 06/22/17 0000 Signed Impressions: Service Date/Time: Thursday, June 22, 2017 15:56 - CONCLUSION: No evidence of flow-limiting carotid stenosis. Christopher Leonardo MD Abdomen Ultrasound 06/22/17 0000 Signed Impressions: Service Date/Time: Thursday, June 22, 2017 16:30 - CONCLUSION: Distended gallbladder with wall thickening and internal debris. Mild calyceal dilatation involving the kidneys bilaterally Christopher Leonardo MD Objective Remarks GENERAL: This is a well-nourished, well-developed patient, in no apparent distress. CARDIOVASCULAR: Regular rate and regular rhythm without murmurs, gallops, or rubs. RESPIRATORY: Clear to auscultation. Breath sounds equal bilaterally. No wheezes , rales, or rhonchi. GASTROINTESTINAL: Abdomen soft, non-tender, nondistended. Normal, active bowel sounds MUSCULOSKELETAL: Extremities without clubbing, cyanosis, or edema. NEURO: Alert & Oriented x4 to person, place, time, situation. Moves all ext x4 Procedures PEG tube insertion. Medications and IVs Current Medications Propofol 100 ml @ As Directed STK-MED ONCE .ROUTE Last administered on 12:43; Start 06/22/17 at 12:25; Stop 06/22/17 at 12:26; Status DC IV Flush (NS Flush) 2 ml UNSCH PRN IV FLUSH FLUSH AFTER USING IV ACCESS; Start 06/22/17 at 12:30; Stop 06/22/17 at 15:32; Status DC Sodium Chloride 1,000 ml @ 1,000 mls/hr Q1H IV Last administered on 06/22/17 12:43; Start 06/22/17 at 12:25; Stop 06/22/17 at 13:24; Status DC Etomidate (Amidate Inj) 20 mg ONCE ONCE IVP Last administered on 06/22/17 12: 44; Start 06/22/17 at 12:30; Stop 06/22/17 at 12:34; Status DC Albuterol/ Ipratropium (Duoneb Neb) 1 ampule Q15M INH Last administered on 06/22 13:16; Start 06/22/17 at 12:30; Stop 06/22/17 at 13:01; Status DC Sodium Chloride (NS Flush) 2 ml UNSCH PRN IVF FLUSH AFTER USING IV ACCESS Last administered on 06/22/17 12:44; Start 06/22/17 at 12:30; Stop 06/22/17 at 15:32 ; Status DC Sodium Chloride 1,000 ml @ 999 mls/hr Q1H1M IV Last administered on 06/22/17 12:56; Start 06/22/17 at 12:45; Stop 06/22/17 at 13:45; Status DC Sodium Chloride 1,000 ml @ 999 mls/hr Q1H1M IV Last administered on 06/22/17 12:56; Start 06/22/17 at 12:45; Stop 06/22/17 at 13:45; Status DC Methylprednisolone Sodium Succinate (SoluMEDROL INJ) 125 mg ONCE ONCE IV PUSH Last administered on 06/22/17 12:56; Start 06/22/17 at 12:45; Stop 06/22/17 at 12:46; Status DC Hydromorphone HCl (Dilaudid Pf Inj) 0.5 mg ONCE ONCE IV PUSH Last administered on 06/22/17 12:56; Start 06/22/17 at 12:45; Stop 06/22/17 at 12:46 ; Status DC Succinylcholine Chloride (Quelicin Inj) 200 mg STK-MED ONCE .ROUTE Last administered on 06/22/17 12:20; Start 06/22/17 at 13:15; Stop 06/22/17 at 13:16 ; Status DC Vancomycin HCl 850 mg/Sodium Chloride 258.5 ml @ 250 mls/hr ONCE ONCE IV Last administered on 06/22/17 16:06; Start 06/22/17 at 15:15; Stop 06/22/17 at 16:17; Status DC Cefepime HCl 1000 mg/Sodium Chloride 100 ml @ 200 mls/hr ONCE ONCE IV Last administered on 06/22/17 15:08; Start 06/22/17 at 15:15; Stop 06/22/17 at 15:46 ; Status DC Sodium Chloride 1,000 ml @ 84 mls/hr [id number] IV Last administered on 03:06; Start 06/22/17 at 15:09; Stop 06/23/17 at 07:25; Status DC Sodium Chloride (NS Flush) 2 ml UNSCH PRN IV FLUSH FLUSH AFTER USING IV ACCESS Last administered on 07/11/17 06:10; Start 06/22/17 at 15:15 Sodium Chloride (NS Flush) 2 ml BID IV FLUSH Last administered on 07/26/17 08: 26; Start 06/22/17 at 21:00 Acetaminophen (Tylenol) 650 mg Q6H PRN PO PAIN 1-10 AND/OR FEVER >101F; Start 06/22/17 at 15:15; Stop 06/23/17 at 07:23; Status DC Famotidine (Pepcid Inj) 10 mg Q12HR IV PUSH Last administered on 06/26/17 20:36 ; Start 06/22/17 at 21:00; Stop 06/26/17 at 22:58; Status DC Lorazepam (Ativan Inj) 1 mg Q1H PRN IV Agitation/Sedation Last administered on 06/30/17 07:50; Start 06/22/17 at 15:15; Stop 06/30/17 at 12:29; Status DC Artificial Tears (Tears Naturale Opth Soln) 1 drop TID EACH EYE Last administered on 07/25/17 12:34; Start 06/22/17 at 18:00 Ondansetron HCl (Zofran Inj) 4 mg Q6H PRN IV NAUSEA OR VOMITING; Start at 15:15 Albuterol/ Ipratropium (Duoneb Neb) 1 ampule Q6HR NEB INH Last administered on 06/26/17 15:29; Start 06/22/17 at 16:00; Stop 06/26/17 at 15:59; Status DC Albuterol Sulfate (Albuterol Neb) 2.5 mg Q2HR NEB PRN INH SOB/WHEEZING Last administered on 07/09/17 11:13; Start 06/22/17 at 15:15; Stop 07/09/17 at 14:25 ; Status DC Heparin Sodium (Porcine) (Heparin Inj) 5,000 units Q12H SQ Last administered on 06/29/17 14:38; Start 06/22/17 at 15:15; Status Future Hold Miscellaneous Information 1 [id number] Last administered on 06/22/17 15:15; Start 06/22/17 at 15:15 Chlorhexidine Gluconate (Chlorhexidine 2% Cloth) Taper DAILY@04 TOP Last administered on 07/19/17 04:00; Start 06/23/17 at 04:00; Stop 06/19/18 at 03:59 Chlorhexidine Gluconate (Chlorhexidine 2% Cloth) 3 pack UNSCH PRN TOP HYGIENIC CARE; Start 06/22/17 at 15:15 Senna/Docusate Sodium (Indy-Colace) 1 tab BID PO Last administered on 06/29/17 22:42; Start 06/22/17 at 21:00; Stop 06/30/17 at 11:09; Status DC Magnesium Hydroxide (Milk Of Magnesia Liq) 30 ml Q12H PRN PO MILD - MODERATE CONSTIPATION; Start 06/22/17 at 15:15 Sennosides (Senokot) 17.2 mg Q12H PRN PO MODERATE - SEVERE CONSTIPATION; Start 06/22/17 at 15:15 Bisacodyl (Dulcolax Supp) 10 mg DAILY PRN RECTAL SEVERE CONSITIPATION Last administered on 07/24/17 08:28; Start 06/22/17 at 15:15 Lactulose (Lactulose Liq) 30 ml DAILY PRN PO SEVERE CONSITIPATION; Start at 15:15 Chlorhexidine Gluconate (Peridex 0.12% Liq) 15 ml BID@08,20 MT Last administered on 07/24/17 20:00; Start 06/22/17 at 20:00 Propofol 100 ml @ 1.65 mls/hr TITRATE PRN IV SEDATION; Start 06/22/17 at 15:15 ; Stop 06/23/17 at 17:57; Status DC Fentanyl Citrate 250 ml @ 5 mls/hr TITRATE PRN IV SEDATION; Start 06/22/17 at 15:15; Stop 06/27/17 at 13:02; Status DC IV Flush (NS Flush) 2 ml BID IV FLUSH ; Start 06/22/17 at 21:00; Status UNV IV Flush (NS Flush) 2 ml UNSCH PRN IV FLUSH FLUSH AFTER USING IV ACCESS; Start 06/22/17 at 15:45; Status UNV Labetalol HCl (Trandate Inj) 10 mg Q2H PRN IV For SBP > 220 or DBP > 120; Start 06/22/17 at 15:45 Nicardipine HCl 25 mg/Sodium Chloride 260 ml @ 52 mls/hr TITRATE PRN IV Maintain BP goal; Start 06/22/17 at 16:00; Status Future Hold Aspirin (Aspirin Chew) 81 mg DAILY PO Last administered on 07/26/17 08:26; Start 06/23/17 at 09:00; Status Future hold Insulin Aspart (NovoLOG SUPPLEMENTAL SCALE) 1 ACHS SQ Last administered on 06/22 16:54; Start 06/22/17 at 16:00; Stop 06/23/17 at 07:23; Status DC Dextrose (D50w (Vial) Inj) 50 ml UNSCH PRN IV PUSH HYPOGLYCEMIA-SEE COMMENTS; Start 06/22/17 at 15:45 Glucagon (Glucagon Inj) 1 mg UNSCH PRN OTHER HYPOGLYCEMIA-SEE COMMENTS; Start 06/22/17 at 15:45 Piperacillin Sod/ Tazobactam Sod 50 ml @ 100 mls/hr Q6H IV Last administered on 06/29/17 05:17; Start 06/22/17 at 17:00; Stop 06/29/17 at 08:00; Status DC Lactulose (Lactulose Liq) 30 ml QID PO Last administered on 06/29/17 22:42; Start 06/22/17 at 18:00; Stop 07/01/17 at 15:26; Status DC Propofol 100 ml @ 1.65 mls/hr TITRATE PRN IV Ordered RASS Last administered on 06/28/17 05:59; Start 06/22/17 at 17:15; Stop 06/29/17 at 07:21; Status DC Calcium Gluconate 2 gm/Sodium Chloride 120 ml @ 120 mls/hr ONCE ONCE IV Last administered on 06/23/17 05:32; Start 06/23/17 at 06:00; Stop 06/23/17 at 06:59 ; Status DC Insulin Aspart (NovoLOG SUPPLEMENTAL SCALE) 1 Q6HR SQ Last administered on 06:16; Start 06/23/17 at 12:00; Stop 07/05/17 at 16:27; Status DC Sodium Chloride 1,000 ml @ 999 mls/hr BOLUS ONCE IV Last administered on 06/23 08:49; Start 06/23/17 at 08:00; Stop 06/23/17 at 09:00; Status DC Sodium Bicarbonate 100 meq/Sterile Water 950 ml @ 110 mls/hr Q8H39M IV Last administered on 06/24/17 02:48; Start 06/23/17 at 07:30; Stop 06/24/17 at 09:10; Status DC Potassium Chloride (KCl Powder) 40 meq ONCE ONCE PO Last administered on 06:45; Start 06/24/17 at 06:45; Stop 06/24/17 at 06:46; Status DC Sodium Phosphate 15 mmol/Sodium Chloride 155 ml @ 38.75 mls/ hr ONCE ONCE IV Last administered on 06/24/17 08:27; Start 06/24/17 at 08:00; Stop 06/24/17 at 11: 59; Status DC Water (Free Water) VOLUME: 200 ML Q4HR G-TUBE Last administered on 07/02/17 16: 00; Start 06/24/17 at 12:00; Stop 07/05/17 at 10:15; Status DC Sodium Chloride 1,000 ml @ 999 mls/hr BOLUS ONCE IV Last administered on 10:41; Start 06/24/17 at 09:15; Stop 06/24/17 at 10:15; Status DC Metoprolol Tartrate (Lopressor) 12.5 mg Q12HR PO Last administered on 06/27/17 20:02; Start 06/24/17 at 21:00; Stop 06/29/17 at 07:55; Status DC Miscellaneous (Pill Splitter) 1 ea UNSCH PRN OTHER SEE LABEL COMMENTS; Start at 15:00 Pharmacy Profile Note 0 ml @ 0 mls/hr UNSCH OTHER ; Start 06/24/17 at 22:30; Stop 06/27/17 at 13:12; Status DC Vancomycin HCl 1000 mg/Sodium Chloride 250 ml @ 250 mls/hr ONCE ONCE IV Last administered on 06/24/17 22:46; Start 06/24/17 at 22:30; Stop 06/24/17 at 23:29; Status DC Potassium Phosphate 30 mmol/ Sodium Chloride 260 ml @ 43.333 mls/ hr ONCE ONCE IV Last administered on 06/25/17 11:00; Start 06/25/17 at 11:00; Stop at 16:59; Status DC Vancomycin HCl 1000 mg/Sodium Chloride 250 ml @ 250 mls/hr Q24H IV Last administered on 06/27/17 06:11; Start 06/26/17 at 02:00; Stop 06/27/17 at 09:08; Status DC Miscellaneous Information SPECIFIC LAB TO BE DRAWN: VANCO TROUGH DATE... ONCE ONCE .XX ; Start 06/27/17 at 01:45; Stop 06/27/17 at 01:46; Status DC Lisinopril (Prinivil) 5 mg DAILY OG-TUBE Last administered on 06/28/17 08:00; Start 06/27/17 at 09:00; Stop 06/28/17 at 08:48; Status DC Potassium Chloride (KCl Powder) 30 meq ONCE ONCE NG Last administered on 14:00; Start 06/26/17 at 14:00; Stop 06/26/17 at 14:01; Status DC Pantoprazole Sodium (Protonix Inj) 40 mg Q12H IV PUSH Last administered on 10:37; Start 06/26/17 at 23:00; Stop 06/27/17 at 13:02; Status DC Vancomycin HCl 1000 mg/Sodium Chloride 250 ml @ 250 mls/hr Q18H IV ; Start 06/28 at 00:00; Stop 06/28/17 at 00:00; Status DC Miscellaneous Information SPECIFIC LAB TO BE ... ONCE ONCE .XX ; Start at 11:45; Stop 06/29/17 at 11:46; Status Cancel Levofloxacin/ Dextrose 150 ml @ 100 mls/hr Q24H IV Last administered on 14:04; Start 06/27/17 at 14:00; Stop 07/15/17 at 15:55; Status DC Pantoprazole Sodium 80 mg/ Sodium Chloride 100 ml @ 10 mls/hr Q10H IV Last administered on 06/28/17 22:58; Start 06/27/17 at 16:00; Stop 06/29/17 at 07:21; Status DC Potassium Chloride 100 ml @ 50 mls/hr Q2H PRN IV For Potassium 2.8 - 3.2 mEq/L ; Start 06/28/17 at 03:30; Stop 06/30/17 at 12:31; Status DC Potassium Chloride 100 ml @ 50 mls/hr Q2H PRN IV For Potassium 2.8 - 3.2 mEq/L ; Start 06/28/17 at 03:30; Stop 06/30/17 at 12:31; Status DC Potassium Bicarb/ Potassium Chloride (K-Lyte Cl Eff) 50 meq UNSCH PRN PO For Potassium 3.3 - 3.5 mEq/L; Start 06/28/17 at 03:30; Stop 06/30/17 at 12:31; Status DC Potassium Chloride 100 ml @ 25 mls/hr UNSCH PRN IV For Potassium 3.3 - 3.5 mEq /L; Start 06/28/17 at 03:30; Stop 06/30/17 at 12:31; Status DC Potassium Chloride 100 ml @ 50 mls/hr Q2H PRN IV For Potassium 3.3 - 3.5 mEq/ L Last administered on 06/28/17 07:10; Start 06/28/17 at 03:30; Stop 06/30/17 at 12:31; Status DC Magnesium Sulfate 4 gm/Sodium Chloride 100 ml @ 50 mls/hr UNSCH PRN IV For Magnesium 0.9 - 1.1 mg/dL; Start 06/28/17 at 03:30; Stop 06/30/17 at 12:31; Status DC Magnesium Oxide (Mag-Ox) 800 mg UNSCH PRN PO For Magnesium 1.2 - 1.6 mg/dL; Start 06/28/17 at 03:30; Stop 06/30/17 at 12:31; Status DC Magnesium Sulfate 2 gm/Sodium Chloride 100 ml @ 50 mls/hr UNSCH PRN IV For Magnesium 1.2 - 1.6 mg/dL; Start 06/28/17 at 03:30; Stop 06/30/17 at 12:31; Status DC Potassium Phosphate (K-Phos) 2,000 mg Q4H PRN PO For Phosphorus < 2.5 mg/dL; Start 06/28/17 at 03:30; Stop 06/30/17 at 12:31; Status DC Sodium Phosphate 30 mmol/Sodium Chloride 250 ml @ 42 mls/hr UNSCH PRN IV For Phosphorus < 2.5 mg/dL; Start 06/28/17 at 03:30; Stop 06/30/17 at 12:31; Status DC Potassium Phosphate (K-Phos) 2,000 mg UNSCH PRN PO/TUBE SEE LABEL COMMENTS; Start 06/28/17 at 03:30; Stop 06/30/17 at 12:31; Status DC Potassium Phosphate 30 mmol/ Sodium Chloride 260 ml @ 42 mls/hr UNSCH PRN IV SEE LABEL COMMENTS; Start 06/28/17 at 03:30; Stop 06/30/17 at 12:31; Status DC Lisinopril (Prinivil) 10 mg DAILY OG-TUBE ; Start 06/28/17 at 10:00; Stop at 13:47; Status DC Potassium Chloride/Sodium Chloride 1,000 ml @ 84 mls/hr [id number] IV Last administered on 06/28/17 13:22; Start 06/28/17 at 13:00; Stop 06/28/17 at 21:10; Status DC Aspirin (Aspirin Supp) 300 mg DAILY RECTAL Last administered on 06/29/17 09:20 ; Start 06/29/17 at 09:00; Stop 07/01/17 at 15:26; Status DC Dexamethasone Sodium Phosphate (Decadron Inj) 6 mg NOW ONCE IV Last administered on 06/28/17 21:55; Start 06/28/17 at 21:15; Stop 06/28/17 at 21:16; Status DC Dexamethasone Sodium Phosphate (Decadron Inj) 6 mg Q6H IV Last administered on 06/30/17 02:49; Start 06/29/17 at 03:00; Stop 06/30/17 at 03:01; Status DC Pantoprazole Sodium (Protonix Inj) 40 mg Q12H IV PUSH Last administered on 07/17 08:36; Start 06/29/17 at 08:00; Stop 07/17/17 at 09:44; Status DC Metoprolol Tartrate (Lopressor) 25 mg Q8HR PO Last administered on 07/25/17 21 :01; Start 06/29/17 at 14:00 Hydralazine HCl (Apresoline Inj) 20 mg Q4H PRN IV PUSH SBP >160; Start 06/29/17 at 08:00; Stop 06/30/17 at 20:50; Status DC Haloperidol Lactate (Haldol Inj) 5 mg Q6H PRN IM AGITATION Last administered on 07/01/17 21:23; Start 06/30/17 at 12:30 Dextrose/Sodium Chloride 1,000 ml @ 100 mls/hr Q10H IV Last administered on 09:00; Start 06/30/17 at 13:00; Stop 07/01/17 at 15:26; Status DC Albuterol/ Ipratropium (Duoneb Neb) 1 ampule Q4HR NEB NEB Last administered on 07/04/17 08:31; Start 06/30/17 at 12:30; Stop 07/04/17 at 12:29; Status DC Morphine Sulfate (Morphine Inj) 2 mg Q3H PRN IV PUSH PAIN GREATER THAN 5 Last administered on 07/17/17 09:04; Start 06/30/17 at 12:30; Stop 07/17/17 at 09:44 ; Status DC Enalaprilat (Vasotec Inj) 2.5 mg Q6H PRN IV PUSH SBP > 160 Last administered on 07/14/17 12:10; Start 06/30/17 at 21:00 Lactulose (Lactulose Liq) 30 ml BID PO Last administered on 07/18/17 09:52; Start 07/01/17 at 21:00; Stop 07/18/17 at 11:37; Status DC Potassium Chloride 100 ml @ 50 mls/hr Q2H IV Last administered on 07/02/17 21: 31; Start 07/02/17 at 17:30; Stop 07/02/17 at 21:29; Status DC Magnesium Oxide (Mag-Ox) 400 mg ONCE ONCE PO Last administered on 07/02/17 16: 48; Start 07/02/17 at 16:15; Stop 07/02/17 at 16:16; Status DC Rifaximin (Xifaxan) 550 mg BID PO Last administered on 07/26/17 08:26; Start 07/03/17 at 09:00 Potassium Bicarb/ Potassium Chloride (K-Lyte Cl Eff) 75 meq ONCE ONCE PO ; Start 07/03/17 at 14:15; Stop 07/03/17 at 14:15; Status DC Potassium Chloride 100 ml @ 50 mls/hr Q2H IV Last administered on 07/03/17 23 :12; Start 07/03/17 at 15:00; Stop 07/03/17 at 18:59; Status DC Potassium Bicarbonate (Effer-K Eff) 75 meq ONCE ONCE PO Last administered on 14:52; Start 07/03/17 at 15:00; Stop 07/03/17 at 15:01; Status DC Potassium Bicarbonate (Effer-K Eff) 25 meq ONCE ONCE PO Last administered on 12:00; Start 07/05/17 at 10:15; Stop 07/05/17 at 10:17; Status DC Lisinopril (Prinivil) 10 mg DAILY PO Last administered on 07/26/17 08:25; Start 07/07/17 at 09:00 Lisinopril (Prinivil) 10 mg ONCE ONCE PO Last administered on 07/06/17 14:00 ; Start 07/06/17 at 14:00; Stop 07/06/17 at 14:01; Status DC Furosemide (Lasix Inj) 40 mg ONCE ONCE IV PUSH Last administered on 07/08/17 03:30; Start 07/08/17 at 04:30; Stop 07/08/17 at 04:31; Status DC Cefazolin Sodium (Ancef Inj) 1,000 mg ONCE ONCE IV Last administered on 13:04; Start 07/08/17 at 13:03; Stop 07/08/17 at 13:04; Status DC Propofol (Diprivan 200 Mg/20 ml Inj) 120 mg STK-MED ONCE IV ; Start 07/08/17 at 11:53; Stop 07/08/17 at 13:05; Status DC Albuterol/ Ipratropium (Duoneb Neb) 1 ampule ONCE ONCE NEB ; Start 07/09/17 at 14:30; Stop 07/09/17 at 14:31; Status Cancel Albuterol/ Ipratropium (Duoneb Neb) 1 ampule Q2HR NEB PRN NEB SOB/WHEEZING Last administered on 07/25/17 11:26; Start 07/09/17 at 14:00 Albuterol/ Ipratropium (Duoneb Neb) 1 ampule Q6HR WHILE AWAKE NEB NEB Last administered on 07/13/17 08:44; Start 07/09/17 at 14:00; Stop 07/13/17 at 13:59 ; Status DC Amoxicillin/ Clavulanate Potassium (Augmentin) 875 mg Q12HR PO Last administered on 07/16/17 08:19; Start 07/09/17 at 14:00; Stop 07/16/17 at 13:59 ; Status DC Lactobacillus Acidophilus (Lactinex Pkt) 1 gm BID PO Last administered on 08:27; Start 07/09/17 at 21:00 Methylprednisolone Sodium Succinate (SoluMEDROL INJ) 40 mg ONCE ONCE IV PUSH Last administered on 07/09/17 17:06; Start 07/09/17 at 14:00; Stop 07/09/17 at 14:24; Status DC Potassium Chloride (KCl Powder) 60 meq ONCE ONCE PO Last administered on 13:49; Start 07/10/17 at 10:30; Stop 07/10/17 at 10:31; Status DC Potassium Phosphate (K-Phos) 500 mg ONCE ONCE PO Last administered on 12:29; Start 07/10/17 at 10:30; Stop 07/10/17 at 10:31; Status DC Magnesium Oxide (Mag-Ox) 400 mg ONCE ONCE PO Last administered on 07/10/17 12 :29; Start 07/10/17 at 10:30; Stop 07/10/17 at 10:31; Status DC Potassium Phosphate (K-Phos) 500 mg ONCE ONCE PO Last administered on 12:44; Start 07/11/17 at 11:15; Stop 07/11/17 at 11:32; Status DC Potassium Bicarb/ Potassium Chloride (K-Lyte Cl Eff) 25 meq ONCE ONCE PO Last administered on 07/13/17 14:47; Start 07/13/17 at 12:00; Stop 07/13/17 at 12:01; Status DC Hydralazine HCl (Apresoline) 10 mg Q6HR PRN PO SBP>160, DBP>90; Start 07/14/17 at 15:45 Pantoprazole Sodium (Protonix) 40 mg Q12HR PO Last administered on 07/26/17 08 :25; Start 07/17/17 at 21:00 Oxycodone/ Acetaminophen (Percocet 7.5-325 Mg) 1 tab Q4H PRN PO pain>5 Last administered on 07/26/17 08:26; Start 07/17/17 at 09:45 Lactulose (Lactulose Liq) 30 ml DAILY PO Last administered on 07/26/17 08:25; Start 07/19/17 at 09:00 Temazepam (Restoril) 15 mg HS PRN PO INSOMNIA Last administered on 07/25/17 22 :55; Start 07/18/17 at 14:00 Pneumococcal Polyvalent Vaccine (Pneumovax-23 Inj) 25 mcg ONCE ONCE IM ; Start 07/20/17 at 10:00; Stop 07/20/17 at 10:01; Status Cancel Influenza Virus Vaccine (Flu (Quadrivalent) Vaccine Inj) 0.5 ml ONCE ONCE IM ; Start 07/20/17 at 10:00; Stop 07/20/17 at 10:01; Status Cancel Influenza Virus Vaccine (Flu (Quadrivalent) Vaccine Inj) 0.5 ml ONCE ONCE IM Last administered on 07/19/17 11:00; Start 07/19/17 at 09:00; Stop 07/19/17 at 09:01; Status DC Pneumococcal Polyvalent Vaccine (Pneumovax-23 Inj) 25 mcg ONCE ONCE IM ; Start 07/18/17 at 19:15; Stop 07/18/17 at 19:15; Status DC Pneumococcal Polyvalent Vaccine (Pneumovax-23 Inj) 25 mcg ONCE ONCE IM Last administered on 07/19/17t 09:23; Start 07/19/17 at 09:00; Stop 07/19/17 at 09:01 ; Status DC IV Flush (NS Flush) 5 ml UNSCH PRN IV FLUSH FLUSH AFTER USING IV ACCESS; Start 07/25/17 at 11:15 A/P Assessment and Plan A/P CVA , with expressive aphasia and right hemiparesis, dysphagia. Continue with aspirin LDL 36 therefore statin is not indicated PT/OT/speech therapy Appreciate input from neurology Continue current treatment Possible aspiration pneumonia-resolved s/p Augmentin 07/16/17 Hyperammonemia-resolved Continue lactulose daily Monitor ammonia level accordingly Acute hypoxemic respiratory failure Resolved Continue with DuoNeb when necessary and maintain oxygen saturation above 92% Hypertension Cardiomyopathy 2-D echo revealed LVEF of 45%. Continue beta marilou. PRN antihypertensives Appreciate input from cardiology who signed off Dysphagia Continue with tube feed as well as thickened liquid diet History of chronic of chronic benzodiazepine use Advised on cessation Upper GI bleed Elevated transaminases Elevated ammonia Hypoalbuminemia Hepatitis C antibody positive Rectal bleeding: Currently on Protonix Appreciate input from GI who signed off HIDA scan 06/28 with distended gallbladder-no evidence of acute cholecystitis s/p PEG placement H&H stable History of incontinence Resolved Acute kidney injury Resolved Thrombocytopenia Monitor CBC . Prophylaxis - GI - PO Protonix - DVT - SCD/heparin subcutaneous on hold due to GI bleed. Discharge Planning awaiting placement- pending SSI. Madhu Villaseñor MD Jul 26, 2017 10:42
[2017-07-26] MEDS: RESP: ALBUTEROL 2.5 MG/IPRATROPIUM 0.5 MG NEB (PRN) NEB ×2 (13:50)
[2017-07-26] MEDS: TEMAZEPAM 15 MG CAP PO PRN ×2 (21:56)
[2017-07-27] VITALS (7 sets, daily range): BP systolic 93–116; BP diastolic 60–74; PULSE 82–97; RESP 16–18; TEMP 97.5–98; O2SAT 92–98
[2017-07-27] MEDS: CHLORHEXIDINE GLUCONATE 2 % 1 PACK (2 CLOTHS) TOP SCH ×2 (01:48)
[2017-07-27] MEDS: oxyCODONE/ACETAMINOPHEN 7.5 MG/325 MG TAB PO PRN ×10 (03:16→20:20)
[2017-07-27] MEDS: METOPROLOL TARTRATE 25 MG TAB PO SCH ×6 (06:00→20:21)
[2017-07-27] MEDS: CHLORHEXIDINE 0.12% (ORAL KIT) 15 ML CUP MT SCH ×4 (07:29→20:00)
[2017-07-27] MEDS: PANTOPRAZOLE SOD 40 MG DELAYED RELEASE TAB PO SCH ×4 (08:08→20:20)
[2017-07-27] MEDS: ASPIRIN 81 MG CHEW TAB PO SCH ×2 (08:08)
[2017-07-27] MEDS: LISINOPRIL 10 MG TAB PO SCH ×2 (08:09)
[2017-07-27] MEDS: LACTOBACILLUS ACIDOPHILUS 1 GM PACKET PO SCH ×4 (08:09→20:21)
[2017-07-27] MEDS: RIFAXIMIN 550 MG TAB PO SCH ×4 (08:09→20:20)
[2017-07-27] MEDS: SODIUM CHLORIDE 0.9% FLUSH 10 ML FLUSH IV FLUSH SCH ×4 (08:11→20:21)
[2017-07-27] MEDS: ARTIFICIAL TEARS OPTH SOLN 15 ML BTL EACH EYE SCH ×6 (08:11→16:55)
[2017-07-27] MEDS: LACTULOSE SYRUP 20 GM/30 ML CUP PO SCH ×2 (08:11)
[2017-07-27] MEDS: RESP: ALBUTEROL 2.5 MG/IPRATROPIUM 0.5 MG NEB (PRN) NEB ×4 (09:45→18:36)
--- NOTE | 2017-07-27 10:35 | HHI.PR ---
Subjective Remarks in no distress. no new complaints. Objective Vitals Vital Signs Date Time Temp Pulse Resp B/P (MAP) Pulse Ox O2 Delivery O2 Flow Rate FiO2 07/27/17 08:52 94 Nasal Cannula 2.00 07/27/17 08:47 97.8 84 16 116/70 (85) 94 07/27/17 04:00 97.5 97 18 93/62 (72) 92 07/27/17 03:27 Nasal Cannula 2.00 07/27/17 00:00 98.0 82 18 98/60 (73) 98 07/26/17 20:00 98.5 76 18 96/57 (70) 96 07/26/17 18:03 99 Nasal Cannula 2.00 07/26/17 16:00 98.2 75 18 98/60 (73) 97 07/26/17 13:52 99 Nasal Cannula 2.00 07/26/17 12:00 98.1 93 18 106/63 (77) 97 I/O 07/26/17 07/26/17 07/26/17 07/27/17 07/27/17 07/27/17 07:00 15:00 23:00 07:00 15:00 23:00 Intake Total 1448 ml 919 ml Balance 1448 ml 919 ml Intake Oral 480 ml 238 ml Tube Feeding 908 ml 681 ml Other 60 ml # Voids 4 3 2 Imaging Last Impressions Modified Barium Swallow 07/19/17 0000 Signed Impressions: Service Date/Time: Wednesday, July 19, 2017 00:00 - CONCLUSION: Penetration and aspiration as above within liquids, penetration with nectar thick consistency. Jude Braxton MD Chest X-Ray 07/09/17 0000 Signed Impressions: Service Date/Time: Sunday, July 09, 2017 14:04 - CONCLUSION: 1. Stable mild central bibasilar patchy airspace disease. 2. No significant interval change. Gustavo Santoro MD Head CT 07/06/17 0000 Signed Impressions: Service Date/Time: Thursday, July 06, 2017 09:07 - CONCLUSION: 1. 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 2. Mucous retention cyst within left maxillary and right sphenoid sinuses. Juan Pablo Huffman MD Abdomen X-Ray 07/01/17 1044 Signed Impressions: Service Date/Time: Saturday, July 01, 2017 10:45 - CONCLUSION: NG as above. Rudy Meng MD FACR Hepatobiliary Scan Nuclear Medicine 06/28/17 0900 Signed Impressions: Service Date/Time: Wednesday, June 28, 2017 10:17 - CONCLUSION: Nonspecific persistent distention of the gallbladder. No evidence of acute cholecystitis or biliary obstruction. Christopher Gutierrez MD Lung Scan-VQ Nuclear Medicine 06/24/17 0000 Signed Impressions: Service Date/Time: Saturday, June 24, 2017 12:21 - CONCLUSION: 1. Low probability of pulmonary embolism Jose Richard MD Head Magnetic Resonance Angiography 06/24/17 0000 Signed Impressions: Service Date/Time: Saturday, June 24, 2017 13:37 - CONCLUSION: Negative for major branch vessels obstruction in spite of MRI findings. Rudy Meng MD FACR Brain MRI 06/24/17 0000 Signed Impressions: Service Date/Time: Saturday, June 24, 2017 13:37 - CONCLUSION: Findings consistent with acute infarct left sylvian region anteriorly without hemorrhage. Rudy Meng MD FACR Carotid Artery Ultrasound 06/22/17 0000 Signed Impressions: Service Date/Time: Thursday, June 22, 2017 15:56 - CONCLUSION: No evidence of flow-limiting carotid stenosis. Christopher Leonardo MD Abdomen Ultrasound 06/22/17 0000 Signed Impressions: Service Date/Time: Thursday, June 22, 2017 16:30 - CONCLUSION: Distended gallbladder with wall thickening and internal debris. Mild calyceal dilatation involving the kidneys bilaterally Christopher Leonardo MD Objective Remarks GENERAL: This is a well-nourished, well-developed patient, in no apparent distress. CARDIOVASCULAR: Regular rate and regular rhythm without murmurs, gallops, or rubs. RESPIRATORY: Clear to auscultation. Breath sounds equal bilaterally. No wheezes , rales, or rhonchi. GASTROINTESTINAL: Abdomen soft, non-tender, nondistended. Normal, active bowel sounds MUSCULOSKELETAL: Extremities without clubbing, cyanosis, or edema. NEURO: Alert & Oriented x4 to person, place, time, situation. Moves all ext x4 Procedures PEG tube insertion. Medications and IVs Current Medications Propofol 100 ml @ As Directed STK-MED ONCE .ROUTE Last administered on 12:43; Start 06/22/17 at 12:25; Stop 06/22/17 at 12:26; Status DC IV Flush (NS Flush) 2 ml UNSCH PRN IV FLUSH FLUSH AFTER USING IV ACCESS; Start 06/22/17 at 12:30; Stop 06/22/17 at 15:32; Status DC Sodium Chloride 1,000 ml @ 1,000 mls/hr Q1H IV Last administered on 06/22/17 12:43; Start 06/22/17 at 12:25; Stop 06/22/17 at 13:24; Status DC Etomidate (Amidate Inj) 20 mg ONCE ONCE IVP Last administered on 06/22/17 12: 44; Start 06/22/17 at 12:30; Stop 06/22/17 at 12:34; Status DC Albuterol/ Ipratropium (Duoneb Neb) 1 ampule Q15M INH Last administered on 06/22 13:16; Start 06/22/17 at 12:30; Stop 06/22/17 at 13:01; Status DC Sodium Chloride (NS Flush) 2 ml UNSCH PRN IVF FLUSH AFTER USING IV ACCESS Last administered on 06/22/17 12:44; Start 06/22/17 at 12:30; Stop 06/22/17 at 15:32 ; Status DC Sodium Chloride 1,000 ml @ 999 mls/hr Q1H1M IV Last administered on 06/22/17 12:56; Start 06/22/17 at 12:45; Stop 06/22/17 at 13:45; Status DC Sodium Chloride 1,000 ml @ 999 mls/hr Q1H1M IV Last administered on 06/22/17 12:56; Start 06/22/17 at 12:45; Stop 06/22/17 at 13:45; Status DC Methylprednisolone Sodium Succinate (SoluMEDROL INJ) 125 mg ONCE ONCE IV PUSH Last administered on 06/22/17 12:56; Start 06/22/17 at 12:45; Stop 06/22/17 at 12:46; Status DC Hydromorphone HCl (Dilaudid Pf Inj) 0.5 mg ONCE ONCE IV PUSH Last administered on 06/22/17 12:56; Start 06/22/17 at 12:45; Stop 06/22/17 at 12:46 ; Status DC Succinylcholine Chloride (Quelicin Inj) 200 mg STK-MED ONCE .ROUTE Last administered on 06/22/17 12:20; Start 06/22/17 at 13:15; Stop 06/22/17 at 13:16 ; Status DC Vancomycin HCl 850 mg/Sodium Chloride 258.5 ml @ 250 mls/hr ONCE ONCE IV Last administered on 06/22/17 16:06; Start 06/22/17 at 15:15; Stop 06/22/17 at 16:17; Status DC Cefepime HCl 1000 mg/Sodium Chloride 100 ml @ 200 mls/hr ONCE ONCE IV Last administered on 06/22/17 15:08; Start 06/22/17 at 15:15; Stop 06/22/17 at 15:46 ; Status DC Sodium Chloride 1,000 ml @ 84 mls/hr [id number] IV Last administered on 03:06; Start 06/22/17 at 15:09; Stop 06/23/17 at 07:25; Status DC Sodium Chloride (NS Flush) 2 ml UNSCH PRN IV FLUSH FLUSH AFTER USING IV ACCESS Last administered on 07/11/17 06:10; Start 06/22/17 at 15:15 Sodium Chloride (NS Flush) 2 ml BID IV FLUSH Last administered on 07/27/17 08: 11; Start 06/22/17 at 21:00 Acetaminophen (Tylenol) 650 mg Q6H PRN PO PAIN 1-10 AND/OR FEVER >101F; Start 06/22/17 at 15:15; Stop 06/23/17 at 07:23; Status DC Famotidine (Pepcid Inj) 10 mg Q12HR IV PUSH Last administered on 06/26/17 20:36 ; Start 06/22/17 at 21:00; Stop 06/26/17 at 22:58; Status DC Lorazepam (Ativan Inj) 1 mg Q1H PRN IV Agitation/Sedation Last administered on 06/30/17 07:50; Start 06/22/17 at 15:15; Stop 06/30/17 at 12:29; Status DC Artificial Tears (Tears Naturale Opth Soln) 1 drop TID EACH EYE Last administered on 07/25/17 12:34; Start 06/22/17 at 18:00 Ondansetron HCl (Zofran Inj) 4 mg Q6H PRN IV NAUSEA OR VOMITING; Start at 15:15 Albuterol/ Ipratropium (Duoneb Neb) 1 ampule Q6HR NEB INH Last administered on 06/26/17 15:29; Start 06/22/17 at 16:00; Stop 06/26/17 at 15:59; Status DC Albuterol Sulfate (Albuterol Neb) 2.5 mg Q2HR NEB PRN INH SOB/WHEEZING Last administered on 07/09/17 11:13; Start 06/22/17 at 15:15; Stop 07/09/17 at 14:25 ; Status DC Heparin Sodium (Porcine) (Heparin Inj) 5,000 units Q12H SQ Last administered on 06/29/17 14:38; Start 06/22/17 at 15:15; Status Future Hold Miscellaneous Information 1 [id number] Last administered on 06/22/17 15:15; Start 06/22/17 at 15:15 Chlorhexidine Gluconate (Chlorhexidine 2% Cloth) Taper DAILY@04 TOP Last administered on 07/19/17 04:00; Start 06/23/17 at 04:00; Stop 06/19/18 at 03:59 Chlorhexidine Gluconate (Chlorhexidine 2% Cloth) 3 pack UNSCH PRN TOP HYGIENIC CARE; Start 06/22/17 at 15:15 Senna/Docusate Sodium (Indy-Colace) 1 tab BID PO Last administered on 06/29/17 22:42; Start 06/22/17 at 21:00; Stop 06/30/17 at 11:09; Status DC Magnesium Hydroxide (Milk Of Magnesia Liq) 30 ml Q12H PRN PO MILD - MODERATE CONSTIPATION; Start 06/22/17 at 15:15 Sennosides (Senokot) 17.2 mg Q12H PRN PO MODERATE - SEVERE CONSTIPATION; Start 06/22/17 at 15:15 Bisacodyl (Dulcolax Supp) 10 mg DAILY PRN RECTAL SEVERE CONSITIPATION Last administered on 07/24/17 08:28; Start 06/22/17 at 15:15 Lactulose (Lactulose Liq) 30 ml DAILY PRN PO SEVERE CONSITIPATION; Start at 15:15 Chlorhexidine Gluconate (Peridex 0.12% Liq) 15 ml BID@08,20 MT Last administered on 07/24/17 20:00; Start 06/22/17 at 20:00 Propofol 100 ml @ 1.65 mls/hr TITRATE PRN IV SEDATION; Start 06/22/17 at 15:15 ; Stop 06/23/17 at 17:57; Status DC Fentanyl Citrate 250 ml @ 5 mls/hr TITRATE PRN IV SEDATION; Start 06/22/17 at 15:15; Stop 06/27/17 at 13:02; Status DC IV Flush (NS Flush) 2 ml BID IV FLUSH ; Start 06/22/17 at 21:00; Status UNV IV Flush (NS Flush) 2 ml UNSCH PRN IV FLUSH FLUSH AFTER USING IV ACCESS; Start 06/22/17 at 15:45; Status UNV Labetalol HCl (Trandate Inj) 10 mg Q2H PRN IV For SBP > 220 or DBP > 120; Start 06/22/17 at 15:45 Nicardipine HCl 25 mg/Sodium Chloride 260 ml @ 52 mls/hr TITRATE PRN IV Maintain BP goal; Start 06/22/17 at 16:00; Status Future Hold Aspirin (Aspirin Chew) 81 mg DAILY PO Last administered on 07/27/17 08:08; Start 06/23/17 at 09:00; Status Future hold Insulin Aspart (NovoLOG SUPPLEMENTAL SCALE) 1 ACHS SQ Last administered on 06/22 16:54; Start 06/22/17 at 16:00; Stop 06/23/17 at 07:23; Status DC Dextrose (D50w (Vial) Inj) 50 ml UNSCH PRN IV PUSH HYPOGLYCEMIA-SEE COMMENTS; Start 06/22/17 at 15:45 Glucagon (Glucagon Inj) 1 mg UNSCH PRN OTHER HYPOGLYCEMIA-SEE COMMENTS; Start 06/22/17 at 15:45 Piperacillin Sod/ Tazobactam Sod 50 ml @ 100 mls/hr Q6H IV Last administered on 06/29/17 05:17; Start 06/22/17 at 17:00; Stop 06/29/17 at 08:00; Status DC Lactulose (Lactulose Liq) 30 ml QID PO Last administered on 06/29/17 22:42; Start 06/22/17 at 18:00; Stop 07/01/17 at 15:26; Status DC Propofol 100 ml @ 1.65 mls/hr TITRATE PRN IV Ordered RASS Last administered on 06/28/17 05:59; Start 06/22/17 at 17:15; Stop 06/29/17 at 07:21; Status DC Calcium Gluconate 2 gm/Sodium Chloride 120 ml @ 120 mls/hr ONCE ONCE IV Last administered on 06/23/17 05:32; Start 06/23/17 at 06:00; Stop 06/23/17 at 06:59 ; Status DC Insulin Aspart (NovoLOG SUPPLEMENTAL SCALE) 1 Q6HR SQ Last administered on 06:16; Start 06/23/17 at 12:00; Stop 07/05/17 at 16:27; Status DC Sodium Chloride 1,000 ml @ 999 mls/hr BOLUS ONCE IV Last administered on 06/23 08:49; Start 06/23/17 at 08:00; Stop 06/23/17 at 09:00; Status DC Sodium Bicarbonate 100 meq/Sterile Water 950 ml @ 110 mls/hr Q8H39M IV Last administered on 06/24/17 02:48; Start 06/23/17 at 07:30; Stop 06/24/17 at 09:10; Status DC Potassium Chloride (KCl Powder) 40 meq ONCE ONCE PO Last administered on 06:45; Start 06/24/17 at 06:45; Stop 06/24/17 at 06:46; Status DC Sodium Phosphate 15 mmol/Sodium Chloride 155 ml @ 38.75 mls/ hr ONCE ONCE IV Last administered on 06/24/17 08:27; Start 06/24/17 at 08:00; Stop 06/24/17 at 11: 59; Status DC Water (Free Water) VOLUME: 200 ML Q4HR G-TUBE Last administered on 07/02/17 16: 00; Start 06/24/17 at 12:00; Stop 07/05/17 at 10:15; Status DC Sodium Chloride 1,000 ml @ 999 mls/hr BOLUS ONCE IV Last administered on 10:41; Start 06/24/17 at 09:15; Stop 06/24/17 at 10:15; Status DC Metoprolol Tartrate (Lopressor) 12.5 mg Q12HR PO Last administered on 06/27/17 20:02; Start 06/24/17 at 21:00; Stop 06/29/17 at 07:55; Status DC Miscellaneous (Pill Splitter) 1 ea UNSCH PRN OTHER SEE LABEL COMMENTS; Start at 15:00 Pharmacy Profile Note 0 ml @ 0 mls/hr UNSCH OTHER ; Start 06/24/17 at 22:30; Stop 06/27/17 at 13:12; Status DC Vancomycin HCl 1000 mg/Sodium Chloride 250 ml @ 250 mls/hr ONCE ONCE IV Last administered on 06/24/17 22:46; Start 06/24/17 at 22:30; Stop 06/24/17 at 23:29; Status DC Potassium Phosphate 30 mmol/ Sodium Chloride 260 ml @ 43.333 mls/ hr ONCE ONCE IV Last administered on 06/25/17 11:00; Start 06/25/17 at 11:00; Stop at 16:59; Status DC Vancomycin HCl 1000 mg/Sodium Chloride 250 ml @ 250 mls/hr Q24H IV Last administered on 06/27/17 06:11; Start 06/26/17 at 02:00; Stop 06/27/17 at 09:08; Status DC Miscellaneous Information SPECIFIC LAB TO BE DRAWN: VANCO TROUGH DATE... ONCE ONCE .XX ; Start 06/27/17 at 01:45; Stop 06/27/17 at 01:46; Status DC Lisinopril (Prinivil) 5 mg DAILY OG-TUBE Last administered on 06/28/17 08:00; Start 06/27/17 at 09:00; Stop 06/28/17 at 08:48; Status DC Potassium Chloride (KCl Powder) 30 meq ONCE ONCE NG Last administered on 14:00; Start 06/26/17 at 14:00; Stop 06/26/17 at 14:01; Status DC Pantoprazole Sodium (Protonix Inj) 40 mg Q12H IV PUSH Last administered on 9/4/ 17at 10:37; Start 06/26/17 at 23:00; Stop 06/27/17 at 13:02; Status DC Vancomycin HCl 1000 mg/Sodium Chloride 250 ml @ 250 mls/hr Q18H IV ; Start 06/28 at 00:00; Stop 06/28/17 at 00:00; Status DC Miscellaneous Information SPECIFIC LAB TO BE JAYLEN... ONCE ONCE .XX ; Start at 11:45; Stop 06/29/17 at 11:46; Status Cancel Levofloxacin/ Dextrose 150 ml @ 100 mls/hr Q24H IV Last administered on 14:04; Start 06/27/17 at 14:00; Stop 07/15/17 at 15:55; Status DC Pantoprazole Sodium 80 mg/ Sodium Chloride 100 ml @ 10 mls/hr Q10H IV Last administered on 06/28/17 22:58; Start 06/27/17 at 16:00; Stop 06/29/17 at 07:21; Status DC Potassium Chloride 100 ml @ 50 mls/hr Q2H PRN IV For Potassium 2.8 - 3.2 mEq/L ; Start 06/28/17 at 03:30; Stop 06/30/17 at 12:31; Status DC Potassium Chloride 100 ml @ 50 mls/hr Q2H PRN IV For Potassium 2.8 - 3.2 mEq/L ; Start 06/28/17 at 03:30; Stop 06/30/17 at 12:31; Status DC Potassium Bicarb/ Potassium Chloride (K-Lyte Cl Eff) 50 meq UNSCH PRN PO For Potassium 3.3 - 3.5 mEq/L; Start 06/28/17 at 03:30; Stop 06/30/17 at 12:31; Status DC Potassium Chloride 100 ml @ 25 mls/hr UNSCH PRN IV For Potassium 3.3 - 3.5 mEq /L; Start 06/28/17 at 03:30; Stop 06/30/17 at 12:31; Status DC Potassium Chloride 100 ml @ 50 mls/hr Q2H PRN IV For Potassium 3.3 - 3.5 mEq/ L Last administered on 06/28/17 07:10; Start 06/28/17 at 03:30; Stop 06/30/17 at 12:31; Status DC Magnesium Sulfate 4 gm/Sodium Chloride 100 ml @ 50 mls/hr UNSCH PRN IV For Magnesium 0.9 - 1.1 mg/dL; Start 06/28/17 at 03:30; Stop 06/30/17 at 12:31; Status DC Magnesium Oxide (Mag-Ox) 800 mg UNSCH PRN PO For Magnesium 1.2 - 1.6 mg/dL; Start 06/28/17 at 03:30; Stop 06/30/17 at 12:31; Status DC Magnesium Sulfate 2 gm/Sodium Chloride 100 ml @ 50 mls/hr UNSCH PRN IV For Magnesium 1.2 - 1.6 mg/dL; Start 06/28/17 at 03:30; Stop 06/30/17 at 12:31; Status DC Potassium Phosphate (K-Phos) 2,000 mg Q4H PRN PO For Phosphorus < 2.5 mg/dL; Start 06/28/17 at 03:30; Stop 06/30/17 at 12:31; Status DC Sodium Phosphate 30 mmol/Sodium Chloride 250 ml @ 42 mls/hr UNSCH PRN IV For Phosphorus < 2.5 mg/dL; Start 06/28/17 at 03:30; Stop 06/30/17 at 12:31; Status DC Potassium Phosphate (K-Phos) 2,000 mg UNSCH PRN PO/TUBE SEE LABEL COMMENTS; Start 06/28/17 at 03:30; Stop 06/30/17 at 12:31; Status DC Potassium Phosphate 30 mmol/ Sodium Chloride 260 ml @ 42 mls/hr UNSCH PRN IV SEE LABEL COMMENTS; Start 06/28/17 at 03:30; Stop 06/30/17 at 12:31; Status DC Lisinopril (Prinivil) 10 mg DAILY OG-TUBE ; Start 06/28/17 at 10:00; Stop at 13:47; Status DC Potassium Chloride/Sodium Chloride 1,000 ml @ 84 mls/hr [id number] IV Last administered on 06/28/17 13:22; Start 06/28/17 at 13:00; Stop 06/28/17 at 21:10; Status DC Aspirin (Aspirin Supp) 300 mg DAILY RECTAL Last administered on 06/29/17 09:20 ; Start 06/29/17 at 09:00; Stop 07/01/17 at 15:26; Status DC Dexamethasone Sodium Phosphate (Decadron Inj) 6 mg NOW ONCE IV Last administered on 06/28/17 21:55; Start 06/28/17 at 21:15; Stop 06/28/17 at 21:16; Status DC Dexamethasone Sodium Phosphate (Decadron Inj) 6 mg Q6H IV Last administered on 06/30/17 02:49; Start 06/29/17 at 03:00; Stop 06/30/17 at 03:01; Status DC Pantoprazole Sodium (Protonix Inj) 40 mg Q12H IV PUSH Last administered on 07/17 08:36; Start 06/29/17 at 08:00; Stop 07/17/17 at 09:44; Status DC Metoprolol Tartrate (Lopressor) 25 mg Q8HR PO Last administered on 07/26/17 12 :45; Start 06/29/17 at 14:00 Hydralazine HCl (Apresoline Inj) 20 mg Q4H PRN IV PUSH SBP >160; Start 06/29/17 at 08:00; Stop 06/30/17 at 20:50; Status DC Haloperidol Lactate (Haldol Inj) 5 mg Q6H PRN IM AGITATION Last administered on 07/01/17 21:23; Start 06/30/17 at 12:30 Dextrose/Sodium Chloride 1,000 ml @ 100 mls/hr Q10H IV Last administered on 09:00; Start 06/30/17 at 13:00; Stop 07/01/17 at 15:26; Status DC Albuterol/ Ipratropium (Duoneb Neb) 1 ampule Q4HR NEB NEB Last administered on 07/04/17 08:31; Start 06/30/17 at 12:30; Stop 07/04/17 at 12:29; Status DC Morphine Sulfate (Morphine Inj) 2 mg Q3H PRN IV PUSH PAIN GREATER THAN 5 Last administered on 07/17/17 09:04; Start 06/30/17 at 12:30; Stop 07/17/17 at 09:44 ; Status DC Enalaprilat (Vasotec Inj) 2.5 mg Q6H PRN IV PUSH SBP > 160 Last administered on 07/14/17 12:10; Start 06/30/17 at 21:00 Lactulose (Lactulose Liq) 30 ml BID PO Last administered on 07/18/17 09:52; Start 07/01/17 at 21:00; Stop 07/18/17 at 11:37; Status DC Potassium Chloride 100 ml @ 50 mls/hr Q2H IV Last administered on 07/02/17 21: 31; Start 07/02/17 at 17:30; Stop 07/02/17 at 21:29; Status DC Magnesium Oxide (Mag-Ox) 400 mg ONCE ONCE PO Last administered on 07/02/17 16: 48; Start 07/02/17 at 16:15; Stop 07/02/17 at 16:16; Status DC Rifaximin (Xifaxan) 550 mg BID PO Last administered on 07/27/17 08:09; Start 07/03/17 at 09:00 Potassium Bicarb/ Potassium Chloride (K-Lyte Cl Eff) 75 meq ONCE ONCE PO ; Start 07/03/17 at 14:15; Stop 07/03/17 at 14:15; Status DC Potassium Chloride 100 ml @ 50 mls/hr Q2H IV Last administered on 07/03/17 23 :12; Start 07/03/17 at 15:00; Stop 07/03/17 at 18:59; Status DC Potassium Bicarbonate (Effer-K Eff) 75 meq ONCE ONCE PO Last administered on 14:52; Start 07/03/17 at 15:00; Stop 07/03/17 at 15:01; Status DC Potassium Bicarbonate (Effer-K Eff) 25 meq ONCE ONCE PO Last administered on 12:00; Start 07/05/17 at 10:15; Stop 07/05/17 at 10:17; Status DC Lisinopril (Prinivil) 10 mg DAILY PO Last administered on 07/27/17 08:09; Start 07/07/17 at 09:00 Lisinopril (Prinivil) 10 mg ONCE ONCE PO Last administered on 07/06/17 14:00 ; Start 07/06/17 at 14:00; Stop 07/06/17 at 14:01; Status DC Furosemide (Lasix Inj) 40 mg ONCE ONCE IV PUSH Last administered on 9/15/17at 03:30; Start 07/08/17 at 04:30; Stop 07/08/17 at 04:31; Status DC Cefazolin Sodium (Ancef Inj) 1,000 mg ONCE ONCE IV Last administered on 13:04; Start 07/08/17 at 13:03; Stop 07/08/17 at 13:04; Status DC Propofol (Diprivan 200 Mg/20 ml Inj) 120 mg STK-MED ONCE IV ; Start 07/08/17 at 11:53; Stop 07/08/17 at 13:05; Status DC Albuterol/ Ipratropium (Duoneb Neb) 1 ampule ONCE ONCE NEB ; Start 07/09/17 at 14:30; Stop 07/09/17 at 14:31; Status Cancel Albuterol/ Ipratropium (Duoneb Neb) 1 ampule Q2HR NEB PRN NEB SOB/WHEEZING Last administered on 07/27/17 09:45; Start 07/09/17 at 14:00 Albuterol/ Ipratropium (Duoneb Neb) 1 ampule Q6HR WHILE AWAKE NEB NEB Last administered on 07/13/17 08:44; Start 07/09/17 at 14:00; Stop 07/13/17 at 13:59 ; Status DC Amoxicillin/ Clavulanate Potassium (Augmentin) 875 mg Q12HR PO Last administered on 07/16/17 08:19; Start 07/09/17 at 14:00; Stop 07/16/17 at 13:59 ; Status DC Lactobacillus Acidophilus (Lactinex Pkt) 1 gm BID PO Last administered on 08:09; Start 07/09/17 at 21:00 Methylprednisolone Sodium Succinate (SoluMEDROL INJ) 40 mg ONCE ONCE IV PUSH Last administered on 07/09/17 17:06; Start 07/09/17 at 14:00; Stop 07/09/17 at 14:24; Status DC Potassium Chloride (KCl Powder) 60 meq ONCE ONCE PO Last administered on 13:49; Start 07/10/17 at 10:30; Stop 07/10/17 at 10:31; Status DC Potassium Phosphate (K-Phos) 500 mg ONCE ONCE PO Last administered on 12:29; Start 07/10/17 at 10:30; Stop 07/10/17 at 10:31; Status DC Magnesium Oxide (Mag-Ox) 400 mg ONCE ONCE PO Last administered on 07/10/17 12 :29; Start 07/10/17 at 10:30; Stop 07/10/17 at 10:31; Status DC Potassium Phosphate (K-Phos) 500 mg ONCE ONCE PO Last administered on 12:44; Start 07/11/17 at 11:15; Stop 07/11/17 at 11:32; Status DC Potassium Bicarb/ Potassium Chloride (K-Lyte Cl Eff) 25 meq ONCE ONCE PO Last administered on 07/13/17 14:47; Start 07/13/17 at 12:00; Stop 07/13/17 at 12:01; Status DC Hydralazine HCl (Apresoline) 10 mg Q6HR PRN PO SBP>160, DBP>90; Start 07/14/17 at 15:45 Pantoprazole Sodium (Protonix) 40 mg Q12HR PO Last administered on 07/27/17 08 :08; Start 07/17/17 at 21:00 Oxycodone/ Acetaminophen (Percocet 7.5-325 Mg) 1 tab Q4H PRN PO pain>5 Last administered on 07/27/17 08:10; Start 07/17/17 at 09:45 Lactulose (Lactulose Liq) 30 ml DAILY PO Last administered on 07/27/17 08:11; Start 07/19/17 at 09:00 Temazepam (Restoril) 15 mg HS PRN PO INSOMNIA Last administered on 07/26/17 21 :56; Start 07/18/17 at 14:00 Pneumococcal Polyvalent Vaccine (Pneumovax-23 Inj) 25 mcg ONCE ONCE IM ; Start 07/20/17 at 10:00; Stop 07/20/17 at 10:01; Status Cancel Influenza Virus Vaccine (Flu (Quadrivalent) Vaccine Inj) 0.5 ml ONCE ONCE IM ; Start 07/20/17 at 10:00; Stop 07/20/17 at 10:01; Status Cancel Influenza Virus Vaccine (Flu (Quadrivalent) Vaccine Inj) 0.5 ml ONCE ONCE IM Last administered on 07/19/17 11:00; Start 07/19/17 at 09:00; Stop 07/19/17 at 09:01; Status DC Pneumococcal Polyvalent Vaccine (Pneumovax-23 Inj) 25 mcg ONCE ONCE IM ; Start 07/18/17 at 19:15; Stop 07/18/17 at 19:15; Status DC Pneumococcal Polyvalent Vaccine (Pneumovax-23 Inj) 25 mcg ONCE ONCE IM Last administered on 07/19/17t 09:23; Start 07/19/17 at 09:00; Stop 07/19/17 at 09:01 ; Status DC IV Flush (NS Flush) 5 ml UNSCH PRN IV FLUSH FLUSH AFTER USING IV ACCESS; Start 07/25/17 at 11:15 A/P Assessment and Plan A/P CVA , with expressive aphasia and right hemiparesis, dysphagia. Continue with aspirin LDL 36 therefore statin is not indicated PT/OT/speech therapy Appreciate input from neurology Continue current treatment Possible aspiration pneumonia-resolved s/p Augmentin 07/16/17 Hyperammonemia-resolved Continue lactulose daily Monitor ammonia level accordingly Acute hypoxemic respiratory failure Resolved Continue with DuoNeb when necessary and maintain oxygen saturation above 92% Hypertension Cardiomyopathy 2-D echo revealed LVEF of 45%. Continue beta marilou. PRN antihypertensives Appreciate input from cardiology who signed off Dysphagia Continue with tube feed as well as thickened liquid diet History of chronic of chronic benzodiazepine use Advised on cessation Upper GI bleed Elevated transaminases Elevated ammonia Hypoalbuminemia Hepatitis C antibody positive Rectal bleeding Currently on Protonix Appreciate input from GI who signed off HIDA scan 06/28 with distended gallbladder-no evidence of acute cholecystitis s/p PEG placement H&H stable History of incontinence Resolved Acute kidney injury Resolved Thrombocytopenia Monitor CBC . Prophylaxis - GI - PO Protonix - DVT - SCD/heparin subcutaneous on hold due to GI bleed. Discharge Planning awaiting placement- pending SSI. Madhu Villaseñor MD Jul 27, 2017 10:35
[2017-07-27] MEDS: TEMAZEPAM 15 MG CAP PO PRN ×2 (22:52)
[2017-07-28] VITALS (7 sets, daily range): BP systolic 92–116; BP diastolic 53–66; PULSE 88–107; RESP 16–20; TEMP 97.4–98.6; O2SAT 93–100
[2017-07-28] MEDS: oxyCODONE/ACETAMINOPHEN 7.5 MG/325 MG TAB PO PRN ×10 (02:34→20:16)
[2017-07-28] MEDS: RESP: ALBUTEROL 2.5 MG/IPRATROPIUM 0.5 MG NEB (PRN) NEB ×2 (02:48)
[2017-07-28] MEDS: CHLORHEXIDINE GLUCONATE 2 % 1 PACK (2 CLOTHS) TOP SCH ×2 (04:00)
[2017-07-28] MEDS: METOPROLOL TARTRATE 25 MG TAB PO SCH ×6 (04:54→20:17)
[2017-07-28] MEDS: CHLORHEXIDINE 0.12% (ORAL KIT) 15 ML CUP MT SCH ×4 (08:00→20:00)
[2017-07-28] MEDS: ARTIFICIAL TEARS OPTH SOLN 15 ML BTL EACH EYE SCH ×6 (09:00→18:00)
[2017-07-28] MEDS: RIFAXIMIN 550 MG TAB PO SCH ×4 (09:58→20:16)
[2017-07-28] MEDS: LACTULOSE SYRUP 20 GM/30 ML CUP PO SCH ×2 (09:59)
[2017-07-28] MEDS: ASPIRIN 81 MG CHEW TAB PO SCH ×2 (09:59)
[2017-07-28] MEDS: LISINOPRIL 10 MG TAB PO SCH ×2 (09:59)
[2017-07-28] MEDS: PANTOPRAZOLE SOD 40 MG DELAYED RELEASE TAB PO SCH ×4 (09:59→20:17)
[2017-07-28] MEDS: LACTOBACILLUS ACIDOPHILUS 1 GM PACKET PO SCH ×4 (10:59→20:16)
--- NOTE | 2017-07-28 12:02 | HHI.PR ---
Subjective Remarks in no distress. no new complaints. Objective Vitals Vital Signs Date Time Temp Pulse Resp B/P (MAP) Pulse Ox O2 Delivery O2 Flow Rate FiO2 07/28/17 08:56 98.6 97 16 102/65 (77) 100 07/28/17 04:00 97.4 103 20 92/53 (66) 97 07/28/17 02:53 95 Nasal Cannula 4.00 07/28/17 02:15 Nasal Cannula 2.00 07/28/17 00:00 97.9 107 20 106/64 (78) 93 07/27/17 18:11 95 Nasal Cannula 2.00 07/27/17 17:11 97.7 88 16 106/74 (85) 95 07/27/17 12:27 97.7 88 16 106/74 (85) 95 I/O 07/27/17 07/27/17 07/27/17 07/28/17 07/28/17 07/28/17 07:00 15:00 23:00 07:00 15:00 23:00 Intake Total 480 ml 491 ml 994 ml Balance 480 ml 491 ml 994 ml Intake Oral 480 ml 476 ml Tube Feeding 391 ml 518 ml Tube Irrigant 100 ml # Voids 2 1 1 1 # Bowel Movements 1 Imaging Last Impressions Modified Barium Swallow 07/19/17 0000 Signed Impressions: Service Date/Time: Wednesday, July 19, 2017 00:00 - CONCLUSION: Penetration and aspiration as above within liquids, penetration with nectar thick consistency. Jude Braxton MD Chest X-Ray 07/09/17 0000 Signed Impressions: Service Date/Time: Sunday, July 09, 2017 14:04 - CONCLUSION: 1. Stable mild central bibasilar patchy airspace disease. 2. No significant interval change. Gustavo Santoro MD Head CT 07/06/17 0000 Signed Impressions: Service Date/Time: Thursday, July 06, 2017 09:07 - CONCLUSION: 1. 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 2. Mucous retention cyst within left maxillary and right sphenoid sinuses. Juan Pablo Huffman MD Abdomen X-Ray 07/01/17 1044 Signed Impressions: Service Date/Time: Saturday, July 01, 2017 10:45 - CONCLUSION: NG as above. Rudy Meng MD FACR Hepatobiliary Scan Nuclear Medicine 06/28/17 0900 Signed Impressions: Service Date/Time: Wednesday, June 28, 2017 10:17 - CONCLUSION: Nonspecific persistent distention of the gallbladder. No evidence of acute cholecystitis or biliary obstruction. Christopher Gutierrez MD Lung Scan-VQ Nuclear Medicine 06/24/17 0000 Signed Impressions: Service Date/Time: Saturday, June 24, 2017 12:21 - CONCLUSION: 1. Low probability of pulmonary embolism Jose Richard MD Head Magnetic Resonance Angiography 06/24/17 0000 Signed Impressions: Service Date/Time: Saturday, June 24, 2017 13:37 - CONCLUSION: Negative for major branch vessels obstruction in spite of MRI findings. Rudy Meng MD FACR Brain MRI 06/24/17 0000 Signed Impressions: Service Date/Time: Saturday, June 24, 2017 13:37 - CONCLUSION: Findings consistent with acute infarct left sylvian region anteriorly without hemorrhage. Rudy Meng MD FACR Carotid Artery Ultrasound 06/22/17 0000 Signed Impressions: Service Date/Time: Thursday, June 22, 2017 15:56 - CONCLUSION: No evidence of flow-limiting carotid stenosis. Christopher Leonardo MD Abdomen Ultrasound 06/22/17 0000 Signed Impressions: Service Date/Time: Thursday, June 22, 2017 16:30 - CONCLUSION: Distended gallbladder with wall thickening and internal debris. Mild calyceal dilatation involving the kidneys bilaterally Christopher Leonardo MD Objective Remarks GENERAL: This is a well-nourished, well-developed patient, in no apparent distress. CARDIOVASCULAR: Regular rate and regular rhythm without murmurs, gallops, or rubs. RESPIRATORY: Clear to auscultation. Breath sounds equal bilaterally. No wheezes , rales, or rhonchi. GASTROINTESTINAL: Abdomen soft, non-tender, nondistended. Normal, active bowel sounds MUSCULOSKELETAL: Extremities without clubbing, cyanosis, or edema. NEURO: Alert & Oriented x4 to person, place, time, situation. Moves all ext x4 Procedures PEG tube insertion. Medications and IVs Current Medications Propofol 100 ml @ As Directed STK-MED ONCE .ROUTE Last administered on t 12:43; Start 06/22/17 at 12:25; Stop 06/22/17 at 12:26; Status DC IV Flush (NS Flush) 2 ml UNSCH PRN IV FLUSH FLUSH AFTER USING IV ACCESS; Start 06/22/17 at 12:30; Stop 06/22/17 at 15:32; Status DC Sodium Chloride 1,000 ml @ 1,000 mls/hr Q1H IV Last administered on 06/22/17 12:43; Start 06/22/17 at 12:25; Stop 06/22/17 at 13:24; Status DC Etomidate (Amidate Inj) 20 mg ONCE ONCE IVP Last administered on 06/22/17 12: 44; Start 06/22/17 at 12:30; Stop 06/22/17 at 12:34; Status DC Albuterol/ Ipratropium (Duoneb Neb) 1 ampule Q15M INH Last administered on 06/22 13:16; Start 06/22/17 at 12:30; Stop 06/22/17 at 13:01; Status DC Sodium Chloride (NS Flush) 2 ml UNSCH PRN IVF FLUSH AFTER USING IV ACCESS Last administered on 06/22/17 12:44; Start 06/22/17 at 12:30; Stop 06/22/17 at 15:32 ; Status DC Sodium Chloride 1,000 ml @ 999 mls/hr Q1H1M IV Last administered on 06/22/17 12:56; Start 06/22/17 at 12:45; Stop 06/22/17 at 13:45; Status DC Sodium Chloride 1,000 ml @ 999 mls/hr Q1H1M IV Last administered on 06/22/17 12:56; Start 06/22/17 at 12:45; Stop 06/22/17 at 13:45; Status DC Methylprednisolone Sodium Succinate (SoluMEDROL INJ) 125 mg ONCE ONCE IV PUSH Last administered on 06/22/17 12:56; Start 06/22/17 at 12:45; Stop 06/22/17 at 12:46; Status DC Hydromorphone HCl (Dilaudid Pf Inj) 0.5 mg ONCE ONCE IV PUSH Last administered on 06/22/17 12:56; Start 06/22/17 at 12:45; Stop 06/22/17 at 12:46 ; Status DC Succinylcholine Chloride (Quelicin Inj) 200 mg STK-MED ONCE .ROUTE Last administered on 06/22/17 12:20; Start 06/22/17 at 13:15; Stop 06/22/17 at 13:16 ; Status DC Vancomycin HCl 850 mg/Sodium Chloride 258.5 ml @ 250 mls/hr ONCE ONCE IV Last administered on 06/22/17 16:06; Start 06/22/17 at 15:15; Stop 06/22/17 at 16:17; Status DC Cefepime HCl 1000 mg/Sodium Chloride 100 ml @ 200 mls/hr ONCE ONCE IV Last administered on 06/22/17 15:08; Start 06/22/17 at 15:15; Stop 06/22/17 at 15:46 ; Status DC Sodium Chloride 1,000 ml @ 84 mls/hr [id number] IV Last administered on 03:06; Start 06/22/17 at 15:09; Stop 06/23/17 at 07:25; Status DC Sodium Chloride (NS Flush) 2 ml UNSCH PRN IV FLUSH FLUSH AFTER USING IV ACCESS Last administered on 07/11/17 06:10; Start 06/22/17 at 15:15 Sodium Chloride (NS Flush) 2 ml BID IV FLUSH Last administered on 07/27/17 20: 21; Start 06/22/17 at 21:00 Acetaminophen (Tylenol) 650 mg Q6H PRN PO PAIN 1-10 AND/OR FEVER >101F; Start 06/22/17 at 15:15; Stop 06/23/17 at 07:23; Status DC Famotidine (Pepcid Inj) 10 mg Q12HR IV PUSH Last administered on 06/26/17 20:36 ; Start 06/22/17 at 21:00; Stop 06/26/17 at 22:58; Status DC Lorazepam (Ativan Inj) 1 mg Q1H PRN IV Agitation/Sedation Last administered on 06/30/17 07:50; Start 06/22/17 at 15:15; Stop 06/30/17 at 12:29; Status DC Artificial Tears (Tears Naturale Opth Soln) 1 drop TID EACH EYE Last administered on 07/25/17 12:34; Start 06/22/17 at 18:00 Ondansetron HCl (Zofran Inj) 4 mg Q6H PRN IV NAUSEA OR VOMITING; Start at 15:15 Albuterol/ Ipratropium (Duoneb Neb) 1 ampule Q6HR NEB INH Last administered on 06/26/17 15:29; Start 06/22/17 at 16:00; Stop 06/26/17 at 15:59; Status DC Albuterol Sulfate (Albuterol Neb) 2.5 mg Q2HR NEB PRN INH SOB/WHEEZING Last administered on 07/09/17 11:13; Start 06/22/17 at 15:15; Stop 07/09/17 at 14:25 ; Status DC Heparin Sodium (Porcine) (Heparin Inj) 5,000 units Q12H SQ Last administered on 06/29/17 14:38; Start 06/22/17 at 15:15; Status Future Hold Miscellaneous Information 1 [id number] Last administered on 06/22/17 15:15; Start 06/22/17 at 15:15 Chlorhexidine Gluconate (Chlorhexidine 2% Cloth) Taper DAILY@04 TOP Last administered on 07/19/17 04:00; Start 06/23/17 at 04:00; Stop 06/19/18 at 03:59 Chlorhexidine Gluconate (Chlorhexidine 2% Cloth) 3 pack UNSCH PRN TOP HYGIENIC CARE; Start 06/22/17 at 15:15 Senna/Docusate Sodium (Indy-Colace) 1 tab BID PO Last administered on 06/29/17 22:42; Start 06/22/17 at 21:00; Stop 06/30/17 at 11:09; Status DC Magnesium Hydroxide (Milk Of Magnesia Liq) 30 ml Q12H PRN PO MILD - MODERATE CONSTIPATION; Start 06/22/17 at 15:15 Sennosides (Senokot) 17.2 mg Q12H PRN PO MODERATE - SEVERE CONSTIPATION; Start 06/22/17 at 15:15 Bisacodyl (Dulcolax Supp) 10 mg DAILY PRN RECTAL SEVERE CONSITIPATION Last administered on 07/24/17 08:28; Start 06/22/17 at 15:15 Lactulose (Lactulose Liq) 30 ml DAILY PRN PO SEVERE CONSITIPATION; Start at 15:15 Chlorhexidine Gluconate (Peridex 0.12% Liq) 15 ml BID@08,20 MT Last administered on 07/24/17 20:00; Start 06/22/17 at 20:00 Propofol 100 ml @ 1.65 mls/hr TITRATE PRN IV SEDATION; Start 06/22/17 at 15:15 ; Stop 06/23/17 at 17:57; Status DC Fentanyl Citrate 250 ml @ 5 mls/hr TITRATE PRN IV SEDATION; Start 06/22/17 at 15:15; Stop 06/27/17 at 13:02; Status DC IV Flush (NS Flush) 2 ml BID IV FLUSH ; Start 06/22/17 at 21:00; Status UNV IV Flush (NS Flush) 2 ml UNSCH PRN IV FLUSH FLUSH AFTER USING IV ACCESS; Start 06/22/17 at 15:45; Status UNV Labetalol HCl (Trandate Inj) 10 mg Q2H PRN IV For SBP > 220 or DBP > 120; Start 06/22/17 at 15:45 Nicardipine HCl 25 mg/Sodium Chloride 260 ml @ 52 mls/hr TITRATE PRN IV Maintain BP goal; Start 06/22/17 at 16:00; Status Future Hold Aspirin (Aspirin Chew) 81 mg DAILY PO Last administered on 07/28/17 09:59; Start 06/23/17 at 09:00; Status Future hold Insulin Aspart (NovoLOG SUPPLEMENTAL SCALE) 1 ACHS SQ Last administered on 06/22 16:54; Start 06/22/17 at 16:00; Stop 06/23/17 at 07:23; Status DC Dextrose (D50w (Vial) Inj) 50 ml UNSCH PRN IV PUSH HYPOGLYCEMIA-SEE COMMENTS; Start 06/22/17 at 15:45 Glucagon (Glucagon Inj) 1 mg UNSCH PRN OTHER HYPOGLYCEMIA-SEE COMMENTS; Start 06/22/17 at 15:45 Piperacillin Sod/ Tazobactam Sod 50 ml @ 100 mls/hr Q6H IV Last administered on 06/29/17 05:17; Start 06/22/17 at 17:00; Stop 06/29/17 at 08:00; Status DC Lactulose (Lactulose Liq) 30 ml QID PO Last administered on 06/29/17 22:42; Start 06/22/17 at 18:00; Stop 07/01/17 at 15:26; Status DC Propofol 100 ml @ 1.65 mls/hr TITRATE PRN IV Ordered RASS Last administered on 06/28/17 05:59; Start 06/22/17 at 17:15; Stop 06/29/17 at 07:21; Status DC Calcium Gluconate 2 gm/Sodium Chloride 120 ml @ 120 mls/hr ONCE ONCE IV Last administered on 06/23/17 05:32; Start 06/23/17 at 06:00; Stop 06/23/17 at 06:59 ; Status DC Insulin Aspart (NovoLOG SUPPLEMENTAL SCALE) 1 Q6HR SQ Last administered on 06:16; Start 06/23/17 at 12:00; Stop 07/05/17 at 16:27; Status DC Sodium Chloride 1,000 ml @ 999 mls/hr BOLUS ONCE IV Last administered on 06/23 08:49; Start 06/23/17 at 08:00; Stop 06/23/17 at 09:00; Status DC Sodium Bicarbonate 100 meq/Sterile Water 950 ml @ 110 mls/hr Q8H39M IV Last administered on 06/24/17 02:48; Start 06/23/17 at 07:30; Stop 06/24/17 at 09:10; Status DC Potassium Chloride (KCl Powder) 40 meq ONCE ONCE PO Last administered on 06:45; Start 06/24/17 at 06:45; Stop 06/24/17 at 06:46; Status DC Sodium Phosphate 15 mmol/Sodium Chloride 155 ml @ 38.75 mls/ hr ONCE ONCE IV Last administered on 06/24/17 08:27; Start 06/24/17 at 08:00; Stop 06/24/17 at 11: 59; Status DC Water (Free Water) VOLUME: 200 ML Q4HR G-TUBE Last administered on 07/02/17 16: 00; Start 06/24/17 at 12:00; Stop 07/05/17 at 10:15; Status DC Sodium Chloride 1,000 ml @ 999 mls/hr BOLUS ONCE IV Last administered on 10:41; Start 06/24/17 at 09:15; Stop 06/24/17 at 10:15; Status DC Metoprolol Tartrate (Lopressor) 12.5 mg Q12HR PO Last administered on 06/27/17 20:02; Start 06/24/17 at 21:00; Stop 06/29/17 at 07:55; Status DC Miscellaneous (Pill Splitter) 1 ea UNSCH PRN OTHER SEE LABEL COMMENTS; Start at 15:00 Pharmacy Profile Note 0 ml @ 0 mls/hr UNSCH OTHER ; Start 06/24/17 at 22:30; Stop 06/27/17 at 13:12; Status DC Vancomycin HCl 1000 mg/Sodium Chloride 250 ml @ 250 mls/hr ONCE ONCE IV Last administered on 06/24/17 22:46; Start 06/24/17 at 22:30; Stop 06/24/17 at 23:29; Status DC Potassium Phosphate 30 mmol/ Sodium Chloride 260 ml @ 43.333 mls/ hr ONCE ONCE IV Last administered on 06/25/17 11:00; Start 06/25/17 at 11:00; Stop at 16:59; Status DC Vancomycin HCl 1000 mg/Sodium Chloride 250 ml @ 250 mls/hr Q24H IV Last administered on 06/27/17 06:11; Start 06/26/17 at 02:00; Stop 06/27/17 at 09:08; Status DC Miscellaneous Information SPECIFIC LAB TO BE DRAWN: VANCO TROUGH DATE... ONCE ONCE .XX ; Start 06/27/17 at 01:45; Stop 06/27/17 at 01:46; Status DC Lisinopril (Prinivil) 5 mg DAILY OG-TUBE Last administered on 06/28/17 08:00; Start 06/27/17 at 09:00; Stop 06/28/17 at 08:48; Status DC Potassium Chloride (KCl Powder) 30 meq ONCE ONCE NG Last administered on 14:00; Start 06/26/17 at 14:00; Stop 06/26/17 at 14:01; Status DC Pantoprazole Sodium (Protonix Inj) 40 mg Q12H IV PUSH Last administered on 10:37; Start 06/26/17 at 23:00; Stop 06/27/17 at 13:02; Status DC Vancomycin HCl 1000 mg/Sodium Chloride 250 ml @ 250 mls/hr Q18H IV ; Start 06/28 at 00:00; Stop 06/28/17 at 00:00; Status DC Miscellaneous Information SPECIFIC LAB TO BE JAYLEN... ONCE ONCE .XX ; Start at 11:45; Stop 06/29/17 at 11:46; Status Cancel Levofloxacin/ Dextrose 150 ml @ 100 mls/hr Q24H IV Last administered on 14:04; Start 06/27/17 at 14:00; Stop 07/15/17 at 15:55; Status DC Pantoprazole Sodium 80 mg/ Sodium Chloride 100 ml @ 10 mls/hr Q10H IV Last administered on 06/28/17 22:58; Start 06/27/17 at 16:00; Stop 06/29/17 at 07:21; Status DC Potassium Chloride 100 ml @ 50 mls/hr Q2H PRN IV For Potassium 2.8 - 3.2 mEq/L ; Start 06/28/17 at 03:30; Stop 06/30/17 at 12:31; Status DC Potassium Chloride 100 ml @ 50 mls/hr Q2H PRN IV For Potassium 2.8 - 3.2 mEq/L ; Start 06/28/17 at 03:30; Stop 06/30/17 at 12:31; Status DC Potassium Bicarb/ Potassium Chloride (K-Lyte Cl Eff) 50 meq UNSCH PRN PO For Potassium 3.3 - 3.5 mEq/L; Start 06/28/17 at 03:30; Stop 06/30/17 at 12:31; Status DC Potassium Chloride 100 ml @ 25 mls/hr UNSCH PRN IV For Potassium 3.3 - 3.5 mEq /L; Start 06/28/17 at 03:30; Stop 06/30/17 at 12:31; Status DC Potassium Chloride 100 ml @ 50 mls/hr Q2H PRN IV For Potassium 3.3 - 3.5 mEq/ L Last administered on 06/28/17 07:10; Start 06/28/17 at 03:30; Stop 06/30/17 at 12:31; Status DC Magnesium Sulfate 4 gm/Sodium Chloride 100 ml @ 50 mls/hr UNSCH PRN IV For Magnesium 0.9 - 1.1 mg/dL; Start 06/28/17 at 03:30; Stop 06/30/17 at 12:31; Status DC Magnesium Oxide (Mag-Ox) 800 mg UNSCH PRN PO For Magnesium 1.2 - 1.6 mg/dL; Start 06/28/17 at 03:30; Stop 06/30/17 at 12:31; Status DC Magnesium Sulfate 2 gm/Sodium Chloride 100 ml @ 50 mls/hr UNSCH PRN IV For Magnesium 1.2 - 1.6 mg/dL; Start 06/28/17 at 03:30; Stop 06/30/17 at 12:31; Status DC Potassium Phosphate (K-Phos) 2,000 mg Q4H PRN PO For Phosphorus < 2.5 mg/dL; Start 06/28/17 at 03:30; Stop 06/30/17 at 12:31; Status DC Sodium Phosphate 30 mmol/Sodium Chloride 250 ml @ 42 mls/hr UNSCH PRN IV For Phosphorus < 2.5 mg/dL; Start 06/28/17 at 03:30; Stop 06/30/17 at 12:31; Status DC Potassium Phosphate (K-Phos) 2,000 mg UNSCH PRN PO/TUBE SEE LABEL COMMENTS; Start 06/28/17 at 03:30; Stop 06/30/17 at 12:31; Status DC Potassium Phosphate 30 mmol/ Sodium Chloride 260 ml @ 42 mls/hr UNSCH PRN IV SEE LABEL COMMENTS; Start 06/28/17 at 03:30; Stop 06/30/17 at 12:31; Status DC Lisinopril (Prinivil) 10 mg DAILY OG-TUBE ; Start 06/28/17 at 10:00; Stop at 13:47; Status DC Potassium Chloride/Sodium Chloride 1,000 ml @ 84 mls/hr [id number] IV Last administered on 06/28/17 13:22; Start 06/28/17 at 13:00; Stop 06/28/17 at 21:10; Status DC Aspirin (Aspirin Supp) 300 mg DAILY RECTAL Last administered on 06/29/17 09:20 ; Start 06/29/17 at 09:00; Stop 07/01/17 at 15:26; Status DC Dexamethasone Sodium Phosphate (Decadron Inj) 6 mg NOW ONCE IV Last administered on 06/28/17 21:55; Start 06/28/17 at 21:15; Stop 06/28/17 at 21:16; Status DC Dexamethasone Sodium Phosphate (Decadron Inj) 6 mg Q6H IV Last administered on 06/30/17 02:49; Start 06/29/17 at 03:00; Stop 06/30/17 at 03:01; Status DC Pantoprazole Sodium (Protonix Inj) 40 mg Q12H IV PUSH Last administered on 07/17 08:36; Start 06/29/17 at 08:00; Stop 07/17/17 at 09:44; Status DC Metoprolol Tartrate (Lopressor) 25 mg Q8HR PO Last administered on 07/26/17 12 :45; Start 06/29/17 at 14:00 Hydralazine HCl (Apresoline Inj) 20 mg Q4H PRN IV PUSH SBP >160; Start 06/29/17 at 08:00; Stop 06/30/17 at 20:50; Status DC Haloperidol Lactate (Haldol Inj) 5 mg Q6H PRN IM AGITATION Last administered on 07/01/17 21:23; Start 06/30/17 at 12:30 Dextrose/Sodium Chloride 1,000 ml @ 100 mls/hr Q10H IV Last administered on 09:00; Start 06/30/17 at 13:00; Stop 07/01/17 at 15:26; Status DC Albuterol/ Ipratropium (Duoneb Neb) 1 ampule Q4HR NEB NEB Last administered on 07/04/17 08:31; Start 06/30/17 at 12:30; Stop 07/04/17 at 12:29; Status DC Morphine Sulfate (Morphine Inj) 2 mg Q3H PRN IV PUSH PAIN GREATER THAN 5 Last administered on 07/17/17 09:04; Start 06/30/17 at 12:30; Stop 07/17/17 at 09:44 ; Status DC Enalaprilat (Vasotec Inj) 2.5 mg Q6H PRN IV PUSH SBP > 160 Last administered on 07/14/17 12:10; Start 06/30/17 at 21:00 Lactulose (Lactulose Liq) 30 ml BID PO Last administered on 07/18/17 09:52; Start 07/01/17 at 21:00; Stop 07/18/17 at 11:37; Status DC Potassium Chloride 100 ml @ 50 mls/hr Q2H IV Last administered on 07/02/17 21: 31; Start 07/02/17 at 17:30; Stop 07/02/17 at 21:29; Status DC Magnesium Oxide (Mag-Ox) 400 mg ONCE ONCE PO Last administered on 07/02/17 16: 48; Start 07/02/17 at 16:15; Stop 07/02/17 at 16:16; Status DC Rifaximin (Xifaxan) 550 mg BID PO Last administered on 07/28/17 09:58; Start 07/03/17 at 09:00 Potassium Bicarb/ Potassium Chloride (K-Lyte Cl Eff) 75 meq ONCE ONCE PO ; Start 07/03/17 at 14:15; Stop 07/03/17 at 14:15; Status DC Potassium Chloride 100 ml @ 50 mls/hr Q2H IV Last administered on 07/03/17 23 :12; Start 07/03/17 at 15:00; Stop 07/03/17 at 18:59; Status DC Potassium Bicarbonate (Effer-K Eff) 75 meq ONCE ONCE PO Last administered on 14:52; Start 07/03/17 at 15:00; Stop 07/03/17 at 15:01; Status DC Potassium Bicarbonate (Effer-K Eff) 25 meq ONCE ONCE PO Last administered on 12:00; Start 07/05/17 at 10:15; Stop 07/05/17 at 10:17; Status DC Lisinopril (Prinivil) 10 mg DAILY PO Last administered on 07/28/17 09:59; Start 07/07/17 at 09:00 Lisinopril (Prinivil) 10 mg ONCE ONCE PO Last administered on 07/06/17 14:00 ; Start 07/06/17 at 14:00; Stop 07/06/17 at 14:01; Status DC Furosemide (Lasix Inj) 40 mg ONCE ONCE IV PUSH Last administered on 07/08/17 03:30; Start 07/08/17 at 04:30; Stop 07/08/17 at 04:31; Status DC Cefazolin Sodium (Ancef Inj) 1,000 mg ONCE ONCE IV Last administered on 13:04; Start 07/08/17 at 13:03; Stop 07/08/17 at 13:04; Status DC Propofol (Diprivan 200 Mg/20 ml Inj) 120 mg STK-MED ONCE IV ; Start 07/08/17 at 11:53; Stop 07/08/17 at 13:05; Status DC Albuterol/ Ipratropium (Duoneb Neb) 1 ampule ONCE ONCE NEB ; Start 07/09/17 at 14:30; Stop 07/09/17 at 14:31; Status Cancel Albuterol/ Ipratropium (Duoneb Neb) 1 ampule Q2HR NEB PRN NEB SOB/WHEEZING Last administered on 07/28/17 02:48; Start 07/09/17 at 14:00 Albuterol/ Ipratropium (Duoneb Neb) 1 ampule Q6HR WHILE AWAKE NEB NEB Last administered on 07/13/17 08:44; Start 07/09/17 at 14:00; Stop 07/13/17 at 13:59 ; Status DC Amoxicillin/ Clavulanate Potassium (Augmentin) 875 mg Q12HR PO Last administered on 07/16/17 08:19; Start 07/09/17 at 14:00; Stop 07/16/17 at 13:59 ; Status DC Lactobacillus Acidophilus (Lactinex Pkt) 1 gm BID PO Last administered on 10:59; Start 07/09/17 at 21:00 Methylprednisolone Sodium Succinate (SoluMEDROL INJ) 40 mg ONCE ONCE IV PUSH Last administered on 07/09/17 17:06; Start 07/09/17 at 14:00; Stop 07/09/17 at 14:24; Status DC Potassium Chloride (KCl Powder) 60 meq ONCE ONCE PO Last administered on 13:49; Start 07/10/17 at 10:30; Stop 07/10/17 at 10:31; Status DC Potassium Phosphate (K-Phos) 500 mg ONCE ONCE PO Last administered on 12:29; Start 07/10/17 at 10:30; Stop 07/10/17 at 10:31; Status DC Magnesium Oxide (Mag-Ox) 400 mg ONCE ONCE PO Last administered on 07/10/17 12 :29; Start 07/10/17 at 10:30; Stop 07/10/17 at 10:31; Status DC Potassium Phosphate (K-Phos) 500 mg ONCE ONCE PO Last administered on 12:44; Start 07/11/17 at 11:15; Stop 07/11/17 at 11:32; Status DC Potassium Bicarb/ Potassium Chloride (K-Lyte Cl Eff) 25 meq ONCE ONCE PO Last administered on 07/13/17 14:47; Start 07/13/17 at 12:00; Stop 07/13/17 at 12:01; Status DC Hydralazine HCl (Apresoline) 10 mg Q6HR PRN PO SBP>160, DBP>90; Start 07/14/17 at 15:45 Pantoprazole Sodium (Protonix) 40 mg Q12HR PO Last administered on 07/28/17 09 :59; Start 07/17/17 at 21:00 Oxycodone/ Acetaminophen (Percocet 7.5-325 Mg) 1 tab Q4H PRN PO pain>5 Last administered on 07/28/17 10:58; Start 07/17/17 at 09:45 Lactulose (Lactulose Liq) 30 ml DAILY PO Last administered on 07/28/17 09:59; Start 07/19/17 at 09:00 Temazepam (Restoril) 15 mg HS PRN PO INSOMNIA Last administered on 07/27/17 22 :52; Start 07/18/17 at 14:00 Pneumococcal Polyvalent Vaccine (Pneumovax-23 Inj) 25 mcg ONCE ONCE IM ; Start 07/20/17 at 10:00; Stop 07/20/17 at 10:01; Status Cancel Influenza Virus Vaccine (Flu (Quadrivalent) Vaccine Inj) 0.5 ml ONCE ONCE IM ; Start 07/20/17 at 10:00; Stop 07/20/17 at 10:01; Status Cancel Influenza Virus Vaccine (Flu (Quadrivalent) Vaccine Inj) 0.5 ml ONCE ONCE IM Last administered on 07/19/17 11:00; Start 07/19/17 at 09:00; Stop 07/19/17 at 09:01; Status DC Pneumococcal Polyvalent Vaccine (Pneumovax-23 Inj) 25 mcg ONCE ONCE IM ; Start 07/18/17 at 19:15; Stop 07/18/17 at 19:15; Status DC Pneumococcal Polyvalent Vaccine (Pneumovax-23 Inj) 25 mcg ONCE ONCE IM Last administered on 07/19/17t 09:23; Start 07/19/17 at 09:00; Stop 07/19/17 at 09:01 ; Status DC IV Flush (NS Flush) 5 ml UNSCH PRN IV FLUSH FLUSH AFTER USING IV ACCESS; Start 07/25/17 at 11:15 A/P Problem List: (1) Thrombocytopenia ICD Code: D69.6 - Thrombocytopenia, unspecified (2) Polycythemia ICD Code: D75.1 - Secondary polycythemia (3) CVA (cerebral vascular accident) ICD Code: I63.9 - Cerebral infarction, unspecified (4) Stroke ICD Code: I63.9 - Cerebral infarction, unspecified Status: Acute (5) Incontinence ICD Code: R32 - Unspecified urinary incontinence (6) Cystitis ICD Code: N30.90 - Cystitis, unspecified without hematuria Assessment and Plan A/P CVA , with expressive aphasia and right hemiparesis, dysphagia. Continue with aspirin LDL 36 therefore statin is not indicated PT/OT/speech therapy Appreciate input from neurology Continue current treatment Possible aspiration pneumonia-treated. s/p Augmentin 07/16/17 Hyperammonemia-resolved Continue lactulose daily Monitor ammonia level accordingly Acute hypoxemic respiratory failure Resolved Continue with DuoNeb when necessary and maintain oxygen saturation above 92% Hypertension Cardiomyopathy 2-D echo revealed LVEF of 45%. Continue beta marilou. PRN antihypertensives Appreciate input from cardiology who signed off Dysphagia Continue with tube feed as well as thickened liquid diet History of chronic of chronic benzodiazepine use Advised on cessation Upper GI bleed Elevated transaminases Elevated ammonia Hypoalbuminemia Hepatitis C antibody positive Rectal bleeding Currently on Protonix Appreciate input from GI who signed off HIDA scan 06/28 with distended gallbladder-no evidence of acute cholecystitis s/p PEG placement H&H stable History of incontinence Resolved Acute kidney injury Resolved Thrombocytopenia resolved. Prophylaxis - GI - PO Protonix - DVT - SCD/heparin subcutaneous on hold due to GI bleed. Discharge Planning awaiting placement- pending SSI. Problem Qualifiers (1) CVA (cerebral vascular accident): Qualified Codes: I63.9 - Cerebral infarction, unspecified (2) Stroke: Qualified Codes: I63.9 - Cerebral infarction, unspecified (3) Incontinence: Qualified Codes: R32 - Unspecified urinary incontinence Madhu Villaseñor MD Jul 28, 2017 12:02
[2017-07-28] MEDS: SODIUM CHLORIDE 0.9% FLUSH 10 ML FLUSH IV FLUSH SCH ×4 (15:56→20:17)
[2017-07-28] MEDS: TEMAZEPAM 15 MG CAP PO PRN ×2 (23:16)
[2017-07-29] VITALS (8 sets, daily range): BP systolic 94–126; BP diastolic 60–68; PULSE 85–102; RESP 18–20; TEMP 97.4–98.6; O2SAT 92–99
[2017-07-29] MEDS: CHLORHEXIDINE GLUCONATE 2 % 1 PACK (2 CLOTHS) TOP SCH ×2 (03:08)
[2017-07-29] MEDS: oxyCODONE/ACETAMINOPHEN 7.5 MG/325 MG TAB PO PRN ×10 (04:08→21:40)
[2017-07-29] MEDS: METOPROLOL TARTRATE 25 MG TAB PO SCH ×6 (05:14→21:41)
[2017-07-29] MEDS: CHLORHEXIDINE 0.12% (ORAL KIT) 15 ML CUP MT SCH ×4 (08:00→20:00)
[2017-07-29] MEDS: PANTOPRAZOLE SOD 40 MG DELAYED RELEASE TAB PO SCH ×4 (08:50→21:40)
[2017-07-29] MEDS: ASPIRIN 81 MG CHEW TAB PO SCH ×2 (08:50)
[2017-07-29] MEDS: RIFAXIMIN 550 MG TAB PO SCH ×4 (08:50→21:40)
[2017-07-29] MEDS: LACTOBACILLUS ACIDOPHILUS 1 GM PACKET PO SCH ×4 (08:51→21:40)
[2017-07-29] MEDS: SODIUM CHLORIDE 0.9% FLUSH 10 ML FLUSH IV FLUSH SCH ×4 (09:00→21:00)
[2017-07-29] MEDS: LISINOPRIL 10 MG TAB PO SCH ×2 (09:00)
[2017-07-29] MEDS: ARTIFICIAL TEARS OPTH SOLN 15 ML BTL EACH EYE SCH ×6 (09:00→18:00)
--- NOTE | 2017-07-29 11:46 | HHI.PR ---
Subjective Remarks in no distress. no new complaints. Objective Vitals Vital Signs Date Time Temp Pulse Resp B/P (MAP) Pulse Ox O2 Delivery O2 Flow Rate FiO2 07/29/17 09:48 94 Nasal Cannula 2.00 07/29/17 08:47 97.7 92 20 94/60 (71) 94 07/29/17 04:00 98.2 89 20 102/64 (77) 92 07/29/17 00:00 98.2 85 20 97/64 (75) 96 07/28/17 20:23 95 Nasal Cannula 2.00 07/28/17 20:00 98.0 92 20 116/66 (83) 96 07/28/17 17:19 98.1 88 18 107/63 (78) 99 07/28/17 12:16 97.8 96 18 92/62 (72) 100 07/28/17 12:00 20 I/O 07/28/17 07/28/17 07/28/17 07/29/17 07/29/17 07/29/17 07:00 15:00 23:00 07:00 15:00 23:00 Intake Total 994 ml 960 ml 1096 ml Balance 994 ml 960 ml 1096 ml Intake Oral 476 ml 960 ml 480 ml Tube Feeding 518 ml 616 ml # Voids 1 1 1 Imaging Last Impressions Modified Barium Swallow 07/19/17 0000 Signed Impressions: Service Date/Time: Wednesday, July 19, 2017 00:00 - CONCLUSION: Penetration and aspiration as above within liquids, penetration with nectar thick consistency. Jude Braxton MD Chest X-Ray 07/09/17 0000 Signed Impressions: Service Date/Time: Sunday, July 09, 2017 14:04 - CONCLUSION: 1. Stable mild central bibasilar patchy airspace disease. 2. No significant interval change. Gustavo Santoro MD Head CT 07/06/17 0000 Signed Impressions: Service Date/Time: Thursday, July 06, 2017 09:07 - CONCLUSION: 1. 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 2. Mucous retention cyst within left maxillary and right sphenoid sinuses. Juan Pablo Huffman MD Abdomen X-Ray 07/01/17 1044 Signed Impressions: Service Date/Time: Saturday, July 01, 2017 10:45 - CONCLUSION: NG as above. Rudy Meng MD FACR Hepatobiliary Scan Nuclear Medicine 06/28/17 0900 Signed Impressions: Service Date/Time: Wednesday, June 28, 2017 10:17 - CONCLUSION: Nonspecific persistent distention of the gallbladder. No evidence of acute cholecystitis or biliary obstruction. Christopher Gutierrez MD Lung Scan-VQ Nuclear Medicine 06/24/17 0000 Signed Impressions: Service Date/Time: Saturday, June 24, 2017 12:21 - CONCLUSION: 1. Low probability of pulmonary embolism Jose Richard MD Head Magnetic Resonance Angiography 06/24/17 0000 Signed Impressions: Service Date/Time: Saturday, June 24, 2017 13:37 - CONCLUSION: Negative for major branch vessels obstruction in spite of MRI findings. Rudy Meng MD FACR Brain MRI 06/24/17 0000 Signed Impressions: Service Date/Time: Saturday, June 24, 2017 13:37 - CONCLUSION: Findings consistent with acute infarct left sylvian region anteriorly without hemorrhage. Rudy Meng MD FACR Carotid Artery Ultrasound 06/22/17 0000 Signed Impressions: Service Date/Time: Thursday, June 22, 2017 15:56 - CONCLUSION: No evidence of flow-limiting carotid stenosis. Christopher Leonardo MD Abdomen Ultrasound 06/22/17 0000 Signed Impressions: Service Date/Time: Thursday, June 22, 2017 16:30 - CONCLUSION: Distended gallbladder with wall thickening and internal debris. Mild calyceal dilatation involving the kidneys bilaterally Christopher Leonardo MD Objective Remarks GENERAL: This is a well-nourished, well-developed patient, in no apparent distress. CARDIOVASCULAR: Regular rate and regular rhythm without murmurs, gallops, or rubs. RESPIRATORY: Clear to auscultation. Breath sounds equal bilaterally. No wheezes , rales, or rhonchi. GASTROINTESTINAL: Abdomen soft, non-tender, nondistended. Normal, active bowel sounds MUSCULOSKELETAL: Extremities without clubbing, cyanosis, or edema. NEURO: Alert & Oriented x4 to person, place, time, situation. Moves all ext x4 Procedures PEG tube insertion. Medications and IVs Current Medications Propofol 100 ml @ As Directed STK-MED ONCE .ROUTE Last administered on t 12:43; Start 06/22/17 at 12:25; Stop 06/22/17 at 12:26; Status DC IV Flush (NS Flush) 2 ml UNSCH PRN IV FLUSH FLUSH AFTER USING IV ACCESS; Start 06/22/17 at 12:30; Stop 06/22/17 at 15:32; Status DC Sodium Chloride 1,000 ml @ 1,000 mls/hr Q1H IV Last administered on 06/22/17 12:43; Start 06/22/17 at 12:25; Stop 06/22/17 at 13:24; Status DC Etomidate (Amidate Inj) 20 mg ONCE ONCE IVP Last administered on 06/22/17 12: 44; Start 06/22/17 at 12:30; Stop 06/22/17 at 12:34; Status DC Albuterol/ Ipratropium (Duoneb Neb) 1 ampule Q15M INH Last administered on 06/22 13:16; Start 06/22/17 at 12:30; Stop 06/22/17 at 13:01; Status DC Sodium Chloride (NS Flush) 2 ml UNSCH PRN IVF FLUSH AFTER USING IV ACCESS Last administered on 06/22/17 12:44; Start 06/22/17 at 12:30; Stop 06/22/17 at 15:32 ; Status DC Sodium Chloride 1,000 ml @ 999 mls/hr Q1H1M IV Last administered on 06/22/17 12:56; Start 06/22/17 at 12:45; Stop 06/22/17 at 13:45; Status DC Sodium Chloride 1,000 ml @ 999 mls/hr Q1H1M IV Last administered on 06/22/17 12:56; Start 06/22/17 at 12:45; Stop 06/22/17 at 13:45; Status DC Methylprednisolone Sodium Succinate (SoluMEDROL INJ) 125 mg ONCE ONCE IV PUSH Last administered on 06/22/17 12:56; Start 06/22/17 at 12:45; Stop 06/22/17 at 12:46; Status DC Hydromorphone HCl (Dilaudid Pf Inj) 0.5 mg ONCE ONCE IV PUSH Last administered on 06/22/17 12:56; Start 06/22/17 at 12:45; Stop 06/22/17 at 12:46 ; Status DC Succinylcholine Chloride (Quelicin Inj) 200 mg STK-MED ONCE .ROUTE Last administered on 06/22/17 12:20; Start 06/22/17 at 13:15; Stop 06/22/17 at 13:16 ; Status DC Vancomycin HCl 850 mg/Sodium Chloride 258.5 ml @ 250 mls/hr ONCE ONCE IV Last administered on 06/22/17 16:06; Start 06/22/17 at 15:15; Stop 06/22/17 at 16:17; Status DC Cefepime HCl 1000 mg/Sodium Chloride 100 ml @ 200 mls/hr ONCE ONCE IV Last administered on 06/22/17 15:08; Start 06/22/17 at 15:15; Stop 06/22/17 at 15:46 ; Status DC Sodium Chloride 1,000 ml @ 84 mls/hr [id number] IV Last administered on 03:06; Start 06/22/17 at 15:09; Stop 06/23/17 at 07:25; Status DC Sodium Chloride (NS Flush) 2 ml UNSCH PRN IV FLUSH FLUSH AFTER USING IV ACCESS Last administered on 07/11/17 06:10; Start 06/22/17 at 15:15 Sodium Chloride (NS Flush) 2 ml BID IV FLUSH Last administered on 07/28/17 20: 17; Start 06/22/17 at 21:00 Acetaminophen (Tylenol) 650 mg Q6H PRN PO PAIN 1-10 AND/OR FEVER >101F; Start 06/22/17 at 15:15; Stop 06/23/17 at 07:23; Status DC Famotidine (Pepcid Inj) 10 mg Q12HR IV PUSH Last administered on 06/26/17 20:36 ; Start 06/22/17 at 21:00; Stop 06/26/17 at 22:58; Status DC Lorazepam (Ativan Inj) 1 mg Q1H PRN IV Agitation/Sedation Last administered on 06/30/17 07:50; Start 06/22/17 at 15:15; Stop 06/30/17 at 12:29; Status DC Artificial Tears (Tears Naturale Opth Soln) 1 drop TID EACH EYE Last administered on 07/28/17 18:00; Start 06/22/17 at 18:00 Ondansetron HCl (Zofran Inj) 4 mg Q6H PRN IV NAUSEA OR VOMITING; Start at 15:15 Albuterol/ Ipratropium (Duoneb Neb) 1 ampule Q6HR NEB INH Last administered on 06/26/17 15:29; Start 06/22/17 at 16:00; Stop 06/26/17 at 15:59; Status DC Albuterol Sulfate (Albuterol Neb) 2.5 mg Q2HR NEB PRN INH SOB/WHEEZING Last administered on 07/09/17 11:13; Start 06/22/17 at 15:15; Stop 07/09/17 at 14:25 ; Status DC Heparin Sodium (Porcine) (Heparin Inj) 5,000 units Q12H SQ Last administered on 06/29/17 14:38; Start 06/22/17 at 15:15; Status Future Hold Miscellaneous Information 1 [id number] Last administered on 06/22/17 15:15; Start 06/22/17 at 15:15 Chlorhexidine Gluconate (Chlorhexidine 2% Cloth) Taper DAILY@04 TOP Last administered on 07/19/17 04:00; Start 06/23/17 at 04:00; Stop 06/19/18 at 03:59 Chlorhexidine Gluconate (Chlorhexidine 2% Cloth) 3 pack UNSCH PRN TOP HYGIENIC CARE; Start 06/22/17 at 15:15 Senna/Docusate Sodium (Indy-Colace) 1 tab BID PO Last administered on 06/29/17 22:42; Start 06/22/17 at 21:00; Stop 06/30/17 at 11:09; Status DC Magnesium Hydroxide (Milk Of Magnesia Liq) 30 ml Q12H PRN PO MILD - MODERATE CONSTIPATION; Start 06/22/17 at 15:15 Sennosides (Senokot) 17.2 mg Q12H PRN PO MODERATE - SEVERE CONSTIPATION; Start 06/22/17 at 15:15 Bisacodyl (Dulcolax Supp) 10 mg DAILY PRN RECTAL SEVERE CONSITIPATION Last administered on 07/24/17 08:28; Start 06/22/17 at 15:15 Lactulose (Lactulose Liq) 30 ml DAILY PRN PO SEVERE CONSITIPATION; Start at 15:15 Chlorhexidine Gluconate (Peridex 0.12% Liq) 15 ml BID@08,20 MT Last administered on 07/24/17 20:00; Start 06/22/17 at 20:00 Propofol 100 ml @ 1.65 mls/hr TITRATE PRN IV SEDATION; Start 06/22/17 at 15:15 ; Stop 06/23/17 at 17:57; Status DC Fentanyl Citrate 250 ml @ 5 mls/hr TITRATE PRN IV SEDATION; Start 06/22/17 at 15:15; Stop 06/27/17 at 13:02; Status DC IV Flush (NS Flush) 2 ml BID IV FLUSH ; Start 06/22/17 at 21:00; Status UNV IV Flush (NS Flush) 2 ml UNSCH PRN IV FLUSH FLUSH AFTER USING IV ACCESS; Start 06/22/17 at 15:45; Status UNV Labetalol HCl (Trandate Inj) 10 mg Q2H PRN IV For SBP > 220 or DBP > 120; Start 06/22/17 at 15:45 Nicardipine HCl 25 mg/Sodium Chloride 260 ml @ 52 mls/hr TITRATE PRN IV Maintain BP goal; Start 06/22/17 at 16:00; Status Future Hold Aspirin (Aspirin Chew) 81 mg DAILY PO Last administered on 07/29/17 08:50; Start 06/23/17 at 09:00; Status Future hold Insulin Aspart (NovoLOG SUPPLEMENTAL SCALE) 1 ACHS SQ Last administered on 06/22 16:54; Start 06/22/17 at 16:00; Stop 06/23/17 at 07:23; Status DC Dextrose (D50w (Vial) Inj) 50 ml UNSCH PRN IV PUSH HYPOGLYCEMIA-SEE COMMENTS; Start 06/22/17 at 15:45 Glucagon (Glucagon Inj) 1 mg UNSCH PRN OTHER HYPOGLYCEMIA-SEE COMMENTS; Start 06/22/17 at 15:45 Piperacillin Sod/ Tazobactam Sod 50 ml @ 100 mls/hr Q6H IV Last administered on 06/29/17 05:17; Start 06/22/17 at 17:00; Stop 06/29/17 at 08:00; Status DC Lactulose (Lactulose Liq) 30 ml QID PO Last administered on 06/29/17 22:42; Start 06/22/17 at 18:00; Stop 07/01/17 at 15:26; Status DC Propofol 100 ml @ 1.65 mls/hr TITRATE PRN IV Ordered RASS Last administered on 06/28/17 05:59; Start 06/22/17 at 17:15; Stop 06/29/17 at 07:21; Status DC Calcium Gluconate 2 gm/Sodium Chloride 120 ml @ 120 mls/hr ONCE ONCE IV Last administered on 06/23/17 05:32; Start 06/23/17 at 06:00; Stop 06/23/17 at 06:59 ; Status DC Insulin Aspart (NovoLOG SUPPLEMENTAL SCALE) 1 Q6HR SQ Last administered on 06:16; Start 06/23/17 at 12:00; Stop 07/05/17 at 16:27; Status DC Sodium Chloride 1,000 ml @ 999 mls/hr BOLUS ONCE IV Last administered on 06/23 08:49; Start 06/23/17 at 08:00; Stop 06/23/17 at 09:00; Status DC Sodium Bicarbonate 100 meq/Sterile Water 950 ml @ 110 mls/hr Q8H39M IV Last administered on 06/24/17 02:48; Start 06/23/17 at 07:30; Stop 06/24/17 at 09:10; Status DC Potassium Chloride (KCl Powder) 40 meq ONCE ONCE PO Last administered on 06:45; Start 06/24/17 at 06:45; Stop 06/24/17 at 06:46; Status DC Sodium Phosphate 15 mmol/Sodium Chloride 155 ml @ 38.75 mls/ hr ONCE ONCE IV Last administered on 06/24/17 08:27; Start 06/24/17 at 08:00; Stop 06/24/17 at 11: 59; Status DC Water (Free Water) VOLUME: 200 ML Q4HR G-TUBE Last administered on 07/02/17 16: 00; Start 06/24/17 at 12:00; Stop 07/05/17 at 10:15; Status DC Sodium Chloride 1,000 ml @ 999 mls/hr BOLUS ONCE IV Last administered on 9/1/ 17at 10:41; Start 06/24/17 at 09:15; Stop 06/24/17 at 10:15; Status DC Metoprolol Tartrate (Lopressor) 12.5 mg Q12HR PO Last administered on 06/27/17 20:02; Start 06/24/17 at 21:00; Stop 06/29/17 at 07:55; Status DC Miscellaneous (Pill Splitter) 1 ea UNSCH PRN OTHER SEE LABEL COMMENTS; Start at 15:00 Pharmacy Profile Note 0 ml @ 0 mls/hr UNSCH OTHER ; Start 06/24/17 at 22:30; Stop 06/27/17 at 13:12; Status DC Vancomycin HCl 1000 mg/Sodium Chloride 250 ml @ 250 mls/hr ONCE ONCE IV Last administered on 06/24/17 22:46; Start 06/24/17 at 22:30; Stop 06/24/17 at 23:29; Status DC Potassium Phosphate 30 mmol/ Sodium Chloride 260 ml @ 43.333 mls/ hr ONCE ONCE IV Last administered on 06/25/17 11:00; Start 06/25/17 at 11:00; Stop at 16:59; Status DC Vancomycin HCl 1000 mg/Sodium Chloride 250 ml @ 250 mls/hr Q24H IV Last administered on 06/27/17 06:11; Start 06/26/17 at 02:00; Stop 06/27/17 at 09:08; Status DC Miscellaneous Information SPECIFIC LAB TO BE DRAWN: VANCO TROUGH DATE... ONCE ONCE .XX ; Start 06/27/17 at 01:45; Stop 06/27/17 at 01:46; Status DC Lisinopril (Prinivil) 5 mg DAILY OG-TUBE Last administered on 06/28/17 08:00; Start 06/27/17 at 09:00; Stop 06/28/17 at 08:48; Status DC Potassium Chloride (KCl Powder) 30 meq ONCE ONCE NG Last administered on 14:00; Start 06/26/17 at 14:00; Stop 06/26/17 at 14:01; Status DC Pantoprazole Sodium (Protonix Inj) 40 mg Q12H IV PUSH Last administered on 10:37; Start 06/26/17 at 23:00; Stop 06/27/17 at 13:02; Status DC Vancomycin HCl 1000 mg/Sodium Chloride 250 ml @ 250 mls/hr Q18H IV ; Start 06/28 at 00:00; Stop 06/28/17 at 00:00; Status DC Miscellaneous Information SPECIFIC LAB TO BE JAYLEN... ONCE ONCE .XX ; Start at 11:45; Stop 06/29/17 at 11:46; Status Cancel Levofloxacin/ Dextrose 150 ml @ 100 mls/hr Q24H IV Last administered on 14:04; Start 06/27/17 at 14:00; Stop 07/15/17 at 15:55; Status DC Pantoprazole Sodium 80 mg/ Sodium Chloride 100 ml @ 10 mls/hr Q10H IV Last administered on 06/28/17 22:58; Start 06/27/17 at 16:00; Stop 06/29/17 at 07:21; Status DC Potassium Chloride 100 ml @ 50 mls/hr Q2H PRN IV For Potassium 2.8 - 3.2 mEq/L ; Start 06/28/17 at 03:30; Stop 06/30/17 at 12:31; Status DC Potassium Chloride 100 ml @ 50 mls/hr Q2H PRN IV For Potassium 2.8 - 3.2 mEq/L ; Start 06/28/17 at 03:30; Stop 06/30/17 at 12:31; Status DC Potassium Bicarb/ Potassium Chloride (K-Lyte Cl Eff) 50 meq UNSCH PRN PO For Potassium 3.3 - 3.5 mEq/L; Start 06/28/17 at 03:30; Stop 06/30/17 at 12:31; Status DC Potassium Chloride 100 ml @ 25 mls/hr UNSCH PRN IV For Potassium 3.3 - 3.5 mEq /L; Start 06/28/17 at 03:30; Stop 06/30/17 at 12:31; Status DC Potassium Chloride 100 ml @ 50 mls/hr Q2H PRN IV For Potassium 3.3 - 3.5 mEq/ L Last administered on 06/28/17 07:10; Start 06/28/17 at 03:30; Stop 06/30/17 at 12:31; Status DC Magnesium Sulfate 4 gm/Sodium Chloride 100 ml @ 50 mls/hr UNSCH PRN IV For Magnesium 0.9 - 1.1 mg/dL; Start 06/28/17 at 03:30; Stop 06/30/17 at 12:31; Status DC Magnesium Oxide (Mag-Ox) 800 mg UNSCH PRN PO For Magnesium 1.2 - 1.6 mg/dL; Start 06/28/17 at 03:30; Stop 06/30/17 at 12:31; Status DC Magnesium Sulfate 2 gm/Sodium Chloride 100 ml @ 50 mls/hr UNSCH PRN IV For Magnesium 1.2 - 1.6 mg/dL; Start 06/28/17 at 03:30; Stop 06/30/17 at 12:31; Status DC Potassium Phosphate (K-Phos) 2,000 mg Q4H PRN PO For Phosphorus < 2.5 mg/dL; Start 06/28/17 at 03:30; Stop 06/30/17 at 12:31; Status DC Sodium Phosphate 30 mmol/Sodium Chloride 250 ml @ 42 mls/hr UNSCH PRN IV For Phosphorus < 2.5 mg/dL; Start 06/28/17 at 03:30; Stop 06/30/17 at 12:31; Status DC Potassium Phosphate (K-Phos) 2,000 mg UNSCH PRN PO/TUBE SEE LABEL COMMENTS; Start 06/28/17 at 03:30; Stop 06/30/17 at 12:31; Status DC Potassium Phosphate 30 mmol/ Sodium Chloride 260 ml @ 42 mls/hr UNSCH PRN IV SEE LABEL COMMENTS; Start 06/28/17 at 03:30; Stop 06/30/17 at 12:31; Status DC Lisinopril (Prinivil) 10 mg DAILY OG-TUBE ; Start 06/28/17 at 10:00; Stop at 13:47; Status DC Potassium Chloride/Sodium Chloride 1,000 ml @ 84 mls/hr [id number] IV Last administered on 06/28/17 13:22; Start 06/28/17 at 13:00; Stop 06/28/17 at 21:10; Status DC Aspirin (Aspirin Supp) 300 mg DAILY RECTAL Last administered on 06/29/17 09:20 ; Start 06/29/17 at 09:00; Stop 07/01/17 at 15:26; Status DC Dexamethasone Sodium Phosphate (Decadron Inj) 6 mg NOW ONCE IV Last administered on 06/28/17 21:55; Start 06/28/17 at 21:15; Stop 06/28/17 at 21:16; Status DC Dexamethasone Sodium Phosphate (Decadron Inj) 6 mg Q6H IV Last administered on 06/30/17 02:49; Start 06/29/17 at 03:00; Stop 06/30/17 at 03:01; Status DC Pantoprazole Sodium (Protonix Inj) 40 mg Q12H IV PUSH Last administered on 07/17 08:36; Start 06/29/17 at 08:00; Stop 07/17/17 at 09:44; Status DC Metoprolol Tartrate (Lopressor) 25 mg Q8HR PO Last administered on 07/28/17 20 :17; Start 06/29/17 at 14:00 Hydralazine HCl (Apresoline Inj) 20 mg Q4H PRN IV PUSH SBP >160; Start 06/29/17 at 08:00; Stop 06/30/17 at 20:50; Status DC Haloperidol Lactate (Haldol Inj) 5 mg Q6H PRN IM AGITATION Last administered on 07/01/17 21:23; Start 06/30/17 at 12:30 Dextrose/Sodium Chloride 1,000 ml @ 100 mls/hr Q10H IV Last administered on 09:00; Start 06/30/17 at 13:00; Stop 07/01/17 at 15:26; Status DC Albuterol/ Ipratropium (Duoneb Neb) 1 ampule Q4HR NEB NEB Last administered on 07/04/17 08:31; Start 06/30/17 at 12:30; Stop 07/04/17 at 12:29; Status DC Morphine Sulfate (Morphine Inj) 2 mg Q3H PRN IV PUSH PAIN GREATER THAN 5 Last administered on 07/17/17 09:04; Start 06/30/17 at 12:30; Stop 07/17/17 at 09:44 ; Status DC Enalaprilat (Vasotec Inj) 2.5 mg Q6H PRN IV PUSH SBP > 160 Last administered on 07/14/17 12:10; Start 06/30/17 at 21:00 Lactulose (Lactulose Liq) 30 ml BID PO Last administered on 07/18/17 09:52; Start 07/01/17 at 21:00; Stop 07/18/17 at 11:37; Status DC Potassium Chloride 100 ml @ 50 mls/hr Q2H IV Last administered on 07/02/17 21: 31; Start 07/02/17 at 17:30; Stop 07/02/17 at 21:29; Status DC Magnesium Oxide (Mag-Ox) 400 mg ONCE ONCE PO Last administered on 07/02/17 16: 48; Start 07/02/17 at 16:15; Stop 07/02/17 at 16:16; Status DC Rifaximin (Xifaxan) 550 mg BID PO Last administered on 07/29/17 08:50; Start 07/03/17 at 09:00 Potassium Bicarb/ Potassium Chloride (K-Lyte Cl Eff) 75 meq ONCE ONCE PO ; Start 07/03/17 at 14:15; Stop 07/03/17 at 14:15; Status DC Potassium Chloride 100 ml @ 50 mls/hr Q2H IV Last administered on 07/03/17 23 :12; Start 07/03/17 at 15:00; Stop 07/03/17 at 18:59; Status DC Potassium Bicarbonate (Effer-K Eff) 75 meq ONCE ONCE PO Last administered on 14:52; Start 07/03/17 at 15:00; Stop 07/03/17 at 15:01; Status DC Potassium Bicarbonate (Effer-K Eff) 25 meq ONCE ONCE PO Last administered on 12:00; Start 07/05/17 at 10:15; Stop 07/05/17 at 10:17; Status DC Lisinopril (Prinivil) 10 mg DAILY PO Last administered on 07/28/17 09:59; Start 07/07/17 at 09:00 Lisinopril (Prinivil) 10 mg ONCE ONCE PO Last administered on 07/06/17 14:00 ; Start 07/06/17 at 14:00; Stop 07/06/17 at 14:01; Status DC Furosemide (Lasix Inj) 40 mg ONCE ONCE IV PUSH Last administered on 07/08/17 03:30; Start 07/08/17 at 04:30; Stop 07/08/17 at 04:31; Status DC Cefazolin Sodium (Ancef Inj) 1,000 mg ONCE ONCE IV Last administered on 13:04; Start 07/08/17 at 13:03; Stop 07/08/17 at 13:04; Status DC Propofol (Diprivan 200 Mg/20 ml Inj) 120 mg STK-MED ONCE IV ; Start 07/08/17 at 11:53; Stop 07/08/17 at 13:05; Status DC Albuterol/ Ipratropium (Duoneb Neb) 1 ampule ONCE ONCE NEB ; Start 07/09/17 at 14:30; Stop 07/09/17 at 14:31; Status Cancel Albuterol/ Ipratropium (Duoneb Neb) 1 ampule Q2HR NEB PRN NEB SOB/WHEEZING Last administered on 07/28/17 02:48; Start 07/09/17 at 14:00 Albuterol/ Ipratropium (Duoneb Neb) 1 ampule Q6HR WHILE AWAKE NEB NEB Last administered on 07/13/17 08:44; Start 07/09/17 at 14:00; Stop 07/13/17 at 13:59 ; Status DC Amoxicillin/ Clavulanate Potassium (Augmentin) 875 mg Q12HR PO Last administered on 07/16/17 08:19; Start 07/09/17 at 14:00; Stop 07/16/17 at 13:59 ; Status DC Lactobacillus Acidophilus (Lactinex Pkt) 1 gm BID PO Last administered on 08:51; Start 07/09/17 at 21:00 Methylprednisolone Sodium Succinate (SoluMEDROL INJ) 40 mg ONCE ONCE IV PUSH Last administered on 07/09/17 17:06; Start 07/09/17 at 14:00; Stop 07/09/17 at 14:24; Status DC Potassium Chloride (KCl Powder) 60 meq ONCE ONCE PO Last administered on 13:49; Start 07/10/17 at 10:30; Stop 07/10/17 at 10:31; Status DC Potassium Phosphate (K-Phos) 500 mg ONCE ONCE PO Last administered on 12:29; Start 07/10/17 at 10:30; Stop 07/10/17 at 10:31; Status DC Magnesium Oxide (Mag-Ox) 400 mg ONCE ONCE PO Last administered on 07/10/17 12 :29; Start 07/10/17 at 10:30; Stop 07/10/17 at 10:31; Status DC Potassium Phosphate (K-Phos) 500 mg ONCE ONCE PO Last administered on 12:44; Start 07/11/17 at 11:15; Stop 07/11/17 at 11:32; Status DC Potassium Bicarb/ Potassium Chloride (K-Lyte Cl Eff) 25 meq ONCE ONCE PO Last administered on 07/13/17 14:47; Start 07/13/17 at 12:00; Stop 07/13/17 at 12:01; Status DC Hydralazine HCl (Apresoline) 10 mg Q6HR PRN PO SBP>160, DBP>90; Start 07/14/17 at 15:45 Pantoprazole Sodium (Protonix) 40 mg Q12HR PO Last administered on 07/29/17 08 :50; Start 07/17/17 at 21:00 Oxycodone/ Acetaminophen (Percocet 7.5-325 Mg) 1 tab Q4H PRN PO pain>5 Last administered on 07/29/17 08:50; Start 07/17/17 at 09:45 Lactulose (Lactulose Liq) 30 ml DAILY PO Last administered on 07/28/17 09:59; Start 07/19/17 at 09:00 Temazepam (Restoril) 15 mg HS PRN PO INSOMNIA Last administered on 07/28/17 23 :16; Start 07/18/17 at 14:00 Pneumococcal Polyvalent Vaccine (Pneumovax-23 Inj) 25 mcg ONCE ONCE IM ; Start 07/20/17 at 10:00; Stop 07/20/17 at 10:01; Status Cancel Influenza Virus Vaccine (Flu (Quadrivalent) Vaccine Inj) 0.5 ml ONCE ONCE IM ; Start 07/20/17 at 10:00; Stop 07/20/17 at 10:01; Status Cancel Influenza Virus Vaccine (Flu (Quadrivalent) Vaccine Inj) 0.5 ml ONCE ONCE IM Last administered on 07/19/17 11:00; Start 07/19/17 at 09:00; Stop 07/19/17 at 09:01; Status DC Pneumococcal Polyvalent Vaccine (Pneumovax-23 Inj) 25 mcg ONCE ONCE IM ; Start 07/18/17 at 19:15; Stop 07/18/17 at 19:15; Status DC Pneumococcal Polyvalent Vaccine (Pneumovax-23 Inj) 25 mcg ONCE ONCE IM Last administered on 07/19/17t 09:23; Start 07/19/17 at 09:00; Stop 07/19/17 at 09:01 ; Status DC IV Flush (NS Flush) 5 ml UNSCH PRN IV FLUSH FLUSH AFTER USING IV ACCESS; Start 07/25/17 at 11:15 A/P Problem List: (1) Thrombocytopenia ICD Code: D69.6 - Thrombocytopenia, unspecified (2) Polycythemia ICD Code: D75.1 - Secondary polycythemia (3) CVA (cerebral vascular accident) ICD Code: I63.9 - Cerebral infarction, unspecified (4) Stroke ICD Code: I63.9 - Cerebral infarction, unspecified Status: Acute (5) Incontinence ICD Code: R32 - Unspecified urinary incontinence (6) Cystitis ICD Code: N30.90 - Cystitis, unspecified without hematuria Assessment and Plan A/P CVA , with expressive aphasia and right hemiparesis, dysphagia. Continue with aspirin LDL 36 therefore statin is not indicated PT/OT/speech therapy Appreciate input from neurology Continue current treatment Possible aspiration pneumonia-treated. s/p Augmentin 07/16/17 Hyperammonemia-resolved Continue lactulose daily Monitor ammonia level accordingly Acute hypoxemic respiratory failure Resolved Continue with DuoNeb when necessary and maintain oxygen saturation above 92% Hypertension Cardiomyopathy 2-D echo revealed LVEF of 45%. Continue beta marilou. PRN antihypertensives Appreciate input from cardiology who signed off Dysphagia Continue with tube feed as well as thickened liquid diet History of chronic of chronic benzodiazepine use Advised on cessation Upper GI bleed Elevated transaminases Elevated ammonia Hypoalbuminemia Hepatitis C antibody positive Rectal bleeding Currently on Protonix Appreciate input from GI who signed off HIDA scan 06/28 with distended gallbladder-no evidence of acute cholecystitis s/p PEG placement H&H stable History of incontinence Resolved Acute kidney injury Resolved Thrombocytopenia resolved. Prophylaxis - GI - PO Protonix - DVT - SCD/heparin subcutaneous on hold due to GI bleed. Discharge Planning awaiting placement- pending SSI. Problem Qualifiers (1) CVA (cerebral vascular accident): Qualified Codes: I63.9 - Cerebral infarction, unspecified (2) Stroke: Qualified Codes: I63.9 - Cerebral infarction, unspecified (3) Incontinence: Qualified Codes: R32 - Unspecified urinary incontinence Madhu Villaseñor MD Jul 29, 2017 11:46
[2017-07-29] MEDS: LACTULOSE SYRUP 20 GM/30 ML CUP PO SCH ×2 (13:51)
[2017-07-29] MEDS: RESP: ALBUTEROL 2.5 MG/IPRATROPIUM 0.5 MG NEB (PRN) NEB ×2 (20:35)
[2017-07-29] MEDS: TEMAZEPAM 15 MG CAP PO PRN ×2 (22:55)
[2017-07-30] VITALS (7 sets, daily range): BP systolic 99–125; BP diastolic 56–80; PULSE 77–96; RESP 18–24; TEMP 96–98.5; O2SAT 93–100
[2017-07-30] MEDS: CHLORHEXIDINE GLUCONATE 2 % 1 PACK (2 CLOTHS) TOP SCH ×2 (01:45)
[2017-07-30] MEDS: oxyCODONE/ACETAMINOPHEN 7.5 MG/325 MG TAB PO PRN ×8 (02:57→21:01)
[2017-07-30] MEDS: METOPROLOL TARTRATE 25 MG TAB PO SCH ×4 (06:00→21:01)
[2017-07-30] MEDS: CHLORHEXIDINE 0.12% (ORAL KIT) 15 ML CUP MT SCH ×4 (08:00→20:00)
[2017-07-30] MEDS: LACTOBACILLUS ACIDOPHILUS 1 GM PACKET PO SCH ×4 (09:00→20:59)
[2017-07-30] MEDS: SODIUM CHLORIDE 0.9% FLUSH 10 ML FLUSH IV FLUSH SCH ×4 (09:00→21:00)
[2017-07-30] MEDS: ARTIFICIAL TEARS OPTH SOLN 15 ML BTL EACH EYE SCH ×6 (09:00→18:00)
[2017-07-30] MEDS: LISINOPRIL 10 MG TAB PO SCH ×2 (09:00)
[2017-07-30] MEDS: ASPIRIN 81 MG CHEW TAB PO SCH ×2 (09:28)
[2017-07-30] MEDS: RIFAXIMIN 550 MG TAB PO SCH ×4 (09:28→21:00)
[2017-07-30] MEDS: PANTOPRAZOLE SOD 40 MG DELAYED RELEASE TAB PO SCH ×4 (09:28→21:00)
[2017-07-30] MEDS: LACTULOSE SYRUP 20 GM/30 ML CUP PO SCH ×2 (09:29)
[2017-07-30] MEDS: RESP: ALBUTEROL 2.5 MG/IPRATROPIUM 0.5 MG NEB (PRN) NEB ×4 (10:00→16:36)
--- NOTE | 2017-07-30 11:13 | HHI.PR ---
Subjective Remarks resting comfortably with no distress. no new complaints. Objective Vitals Vital Signs Date Time Temp Pulse Resp B/P (MAP) Pulse Ox O2 Delivery O2 Flow Rate FiO2 07/30/17 10:03 94 Nasal Cannula 3.00 07/30/17 08:00 98.2 84 18 99/61 (74) 93 07/30/17 04:00 98.3 77 19 102/59 (73) 98 07/30/17 00:00 97.5 96 20 102/69 (80) 100 07/29/17 22:03 95 Nasal Cannula 2.00 07/29/17 20:36 93 Nasal Cannula 3.00 07/29/17 20:00 97.4 102 19 126/68 (87) 93 07/29/17 18:57 22 07/29/17 17:02 97.8 94 18 106/62 (77) 93 07/29/17 12:24 98.6 98 18 107/68 (81) 99 I/O 07/29/17 07/29/17 07/29/17 07/30/17 07/30/17 07/30/17 07:00 15:00 23:00 07:00 15:00 23:00 Intake Total 1825 ml Balance 1825 ml Intake Oral 720 ml Tube Feeding 1105 ml # Voids 1 2 0 # Bowel Movements 0 0 Imaging Last Impressions Modified Barium Swallow 07/19/17 0000 Signed Impressions: Service Date/Time: Wednesday, July 19, 2017 00:00 - CONCLUSION: Penetration and aspiration as above within liquids, penetration with nectar thick consistency. Jude Braxton MD Chest X-Ray 07/09/17 0000 Signed Impressions: Service Date/Time: Sunday, July 09, 2017 14:04 - CONCLUSION: 1. Stable mild central bibasilar patchy airspace disease. 2. No significant interval change. Gustavo Santoro MD Head CT 07/06/17 0000 Signed Impressions: Service Date/Time: Thursday, July 06, 2017 09:07 - CONCLUSION: 1. 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 2. Mucous retention cyst within left maxillary and right sphenoid sinuses. Juan Pablo Huffman MD Abdomen X-Ray 07/01/17 1044 Signed Impressions: Service Date/Time: Saturday, July 01, 2017 10:45 - CONCLUSION: NG as above. Rudy Meng MD FACR Hepatobiliary Scan Nuclear Medicine 06/28/17 0900 Signed Impressions: Service Date/Time: Wednesday, June 28, 2017 10:17 - CONCLUSION: Nonspecific persistent distention of the gallbladder. No evidence of acute cholecystitis or biliary obstruction. Christopher Gutierrez MD Lung Scan-VQ Nuclear Medicine 06/24/17 0000 Signed Impressions: Service Date/Time: Saturday, June 24, 2017 12:21 - CONCLUSION: 1. Low probability of pulmonary embolism Jose Richard MD Head Magnetic Resonance Angiography 06/24/17 Signed Impressions: Service Date/Time: Saturday, June 24, 2017 13:37 - CONCLUSION: Negative for major branch vessels obstruction in spite of MRI findings. Rudy Meng MD FACR Brain MRI 06/24/17 0000 Signed Impressions: Service Date/Time: Saturday, June 24, 2017 13:37 - CONCLUSION: Findings consistent with acute infarct left sylvian region anteriorly without hemorrhage. Rudy Meng MD FACR Carotid Artery Ultrasound 06/22/17 0000 Signed Impressions: Service Date/Time: Thursday, June 22, 2017 15:56 - CONCLUSION: No evidence of flow-limiting carotid stenosis. Christopher Leonardo MD Abdomen Ultrasound 06/22/17 0000 Signed Impressions: Service Date/Time: Thursday, June 22, 2017 16:30 - CONCLUSION: Distended gallbladder with wall thickening and internal debris. Mild calyceal dilatation involving the kidneys bilaterally Christopher Leonardo MD Objective Remarks GENERAL: This is a well-nourished, well-developed patient, in no apparent distress. CARDIOVASCULAR: Regular rate and regular rhythm without murmurs, gallops, or rubs. RESPIRATORY: Clear to auscultation. Breath sounds equal bilaterally. No wheezes , rales, or rhonchi. GASTROINTESTINAL: Abdomen soft, non-tender, nondistended. Normal, active bowel sounds MUSCULOSKELETAL: Extremities without clubbing, cyanosis, or edema. NEURO: Alert & Oriented x4 to person, place, time, situation. Moves all ext x4 Procedures PEG tube insertion. Medications and IVs Current Medications Propofol 100 ml @ As Directed STK-MED ONCE .ROUTE Last administered on t 12:43; Start 06/22/17 at 12:25; Stop 06/22/17 at 12:26; Status DC IV Flush (NS Flush) 2 ml UNSCH PRN IV FLUSH FLUSH AFTER USING IV ACCESS; Start 06/22/17 at 12:30; Stop 06/22/17 at 15:32; Status DC Sodium Chloride 1,000 ml @ 1,000 mls/hr Q1H IV Last administered on 06/22/17 12:43; Start 06/22/17 at 12:25; Stop 06/22/17 at 13:24; Status DC Etomidate (Amidate Inj) 20 mg ONCE ONCE IVP Last administered on 06/22/17 12: 44; Start 06/22/17 at 12:30; Stop 06/22/17 at 12:34; Status DC Albuterol/ Ipratropium (Duoneb Neb) 1 ampule Q15M INH Last administered on 06/22 13:16; Start 06/22/17 at 12:30; Stop 06/22/17 at 13:01; Status DC Sodium Chloride (NS Flush) 2 ml UNSCH PRN IVF FLUSH AFTER USING IV ACCESS Last administered on 06/22/17 12:44; Start 06/22/17 at 12:30; Stop 06/22/17 at 15:32 ; Status DC Sodium Chloride 1,000 ml @ 999 mls/hr Q1H1M IV Last administered on 06/22/17 12:56; Start 06/22/17 at 12:45; Stop 06/22/17 at 13:45; Status DC Sodium Chloride 1,000 ml @ 999 mls/hr Q1H1M IV Last administered on 06/22/17 12:56; Start 06/22/17 at 12:45; Stop 06/22/17 at 13:45; Status DC Methylprednisolone Sodium Succinate (SoluMEDROL INJ) 125 mg ONCE ONCE IV PUSH Last administered on 06/22/17 12:56; Start 06/22/17 at 12:45; Stop 06/22/17 at 12:46; Status DC Hydromorphone HCl (Dilaudid Pf Inj) 0.5 mg ONCE ONCE IV PUSH Last administered on 06/22/17 12:56; Start 06/22/17 at 12:45; Stop 06/22/17 at 12:46 ; Status DC Succinylcholine Chloride (Quelicin Inj) 200 mg STK-MED ONCE .ROUTE Last administered on 06/22/17 12:20; Start 06/22/17 at 13:15; Stop 06/22/17 at 13:16 ; Status DC Vancomycin HCl 850 mg/Sodium Chloride 258.5 ml @ 250 mls/hr ONCE ONCE IV Last administered on 06/22/17 16:06; Start 06/22/17 at 15:15; Stop 06/22/17 at 16:17; Status DC Cefepime HCl 1000 mg/Sodium Chloride 100 ml @ 200 mls/hr ONCE ONCE IV Last administered on 06/22/17 15:08; Start 06/22/17 at 15:15; Stop 06/22/17 at 15:46 ; Status DC Sodium Chloride 1,000 ml @ 84 mls/hr [id number] IV Last administered on 03:06; Start 06/22/17 at 15:09; Stop 06/23/17 at 07:25; Status DC Sodium Chloride (NS Flush) 2 ml UNSCH PRN IV FLUSH FLUSH AFTER USING IV ACCESS Last administered on 07/11/17 06:10; Start 06/22/17 at 15:15 Sodium Chloride (NS Flush) 2 ml BID IV FLUSH Last administered on 07/29/17 21: 00; Start 06/22/17 at 21:00 Acetaminophen (Tylenol) 650 mg Q6H PRN PO PAIN 1-10 AND/OR FEVER >101F; Start 06/22/17 at 15:15; Stop 06/23/17 at 07:23; Status DC Famotidine (Pepcid Inj) 10 mg Q12HR IV PUSH Last administered on 06/26/17 20:36 ; Start 06/22/17 at 21:00; Stop 06/26/17 at 22:58; Status DC Lorazepam (Ativan Inj) 1 mg Q1H PRN IV Agitation/Sedation Last administered on 06/30/17 07:50; Start 06/22/17 at 15:15; Stop 06/30/17 at 12:29; Status DC Artificial Tears (Tears Naturale Opth Soln) 1 drop TID EACH EYE Last administered on 10/5/17at 18:00; Start 06/22/17 at 18:00 Ondansetron HCl (Zofran Inj) 4 mg Q6H PRN IV NAUSEA OR VOMITING; Start at 15:15 Albuterol/ Ipratropium (Duoneb Neb) 1 ampule Q6HR NEB INH Last administered on 06/26/17 15:29; Start 06/22/17 at 16:00; Stop 06/26/17 at 15:59; Status DC Albuterol Sulfate (Albuterol Neb) 2.5 mg Q2HR NEB PRN INH SOB/WHEEZING Last administered on 07/09/17 11:13; Start 06/22/17 at 15:15; Stop 07/09/17 at 14:25 ; Status DC Heparin Sodium (Porcine) (Heparin Inj) 5,000 units Q12H SQ Last administered on 06/29/17 14:38; Start 06/22/17 at 15:15; Status Future Hold Miscellaneous Information 1 [id number] Last administered on 06/22/17 15:15; Start 06/22/17 at 15:15 Chlorhexidine Gluconate (Chlorhexidine 2% Cloth) Taper DAILY@04 TOP Last administered on 07/19/17 04:00; Start 06/23/17 at 04:00; Stop 06/19/18 at 03:59 Chlorhexidine Gluconate (Chlorhexidine 2% Cloth) 3 pack UNSCH PRN TOP HYGIENIC CARE; Start 06/22/17 at 15:15 Senna/Docusate Sodium (Indy-Colace) 1 tab BID PO Last administered on 06/29/17 22:42; Start 06/22/17 at 21:00; Stop 06/30/17 at 11:09; Status DC Magnesium Hydroxide (Milk Of Magnesia Liq) 30 ml Q12H PRN PO MILD - MODERATE CONSTIPATION; Start 06/22/17 at 15:15 Sennosides (Senokot) 17.2 mg Q12H PRN PO MODERATE - SEVERE CONSTIPATION; Start 06/22/17 at 15:15 Bisacodyl (Dulcolax Supp) 10 mg DAILY PRN RECTAL SEVERE CONSITIPATION Last administered on 07/24/17 08:28; Start 06/22/17 at 15:15 Lactulose (Lactulose Liq) 30 ml DAILY PRN PO SEVERE CONSITIPATION; Start at 15:15 Chlorhexidine Gluconate (Peridex 0.12% Liq) 15 ml BID@08,20 MT Last administered on 07/24/17 20:00; Start 06/22/17 at 20:00 Propofol 100 ml @ 1.65 mls/hr TITRATE PRN IV SEDATION; Start 06/22/17 at 15:15 ; Stop 06/23/17 at 17:57; Status DC Fentanyl Citrate 250 ml @ 5 mls/hr TITRATE PRN IV SEDATION; Start 06/22/17 at 15:15; Stop 06/27/17 at 13:02; Status DC IV Flush (NS Flush) 2 ml BID IV FLUSH ; Start 06/22/17 at 21:00; Status UNV IV Flush (NS Flush) 2 ml UNSCH PRN IV FLUSH FLUSH AFTER USING IV ACCESS; Start 06/22/17 at 15:45; Status UNV Labetalol HCl (Trandate Inj) 10 mg Q2H PRN IV For SBP > 220 or DBP > 120; Start 06/22/17 at 15:45 Nicardipine HCl 25 mg/Sodium Chloride 260 ml @ 52 mls/hr TITRATE PRN IV Maintain BP goal; Start 06/22/17 at 16:00; Status Future Hold Aspirin (Aspirin Chew) 81 mg DAILY PO Last administered on 07/30/17 09:28; Start 06/23/17 at 09:00; Status Future hold Insulin Aspart (NovoLOG SUPPLEMENTAL SCALE) 1 ACHS SQ Last administered on 06/22 16:54; Start 06/22/17 at 16:00; Stop 06/23/17 at 07:23; Status DC Dextrose (D50w (Vial) Inj) 50 ml UNSCH PRN IV PUSH HYPOGLYCEMIA-SEE COMMENTS; Start 06/22/17 at 15:45 Glucagon (Glucagon Inj) 1 mg UNSCH PRN OTHER HYPOGLYCEMIA-SEE COMMENTS; Start 06/22/17 at 15:45 Piperacillin Sod/ Tazobactam Sod 50 ml @ 100 mls/hr Q6H IV Last administered on 06/29/17 05:17; Start 06/22/17 at 17:00; Stop 06/29/17 at 08:00; Status DC Lactulose (Lactulose Liq) 30 ml QID PO Last administered on 06/29/17 22:42; Start 06/22/17 at 18:00; Stop 07/01/17 at 15:26; Status DC Propofol 100 ml @ 1.65 mls/hr TITRATE PRN IV Ordered RASS Last administered on 06/28/17 05:59; Start 06/22/17 at 17:15; Stop 06/29/17 at 07:21; Status DC Calcium Gluconate 2 gm/Sodium Chloride 120 ml @ 120 mls/hr ONCE ONCE IV Last administered on 06/23/17 05:32; Start 06/23/17 at 06:00; Stop 06/23/17 at 06:59 ; Status DC Insulin Aspart (NovoLOG SUPPLEMENTAL SCALE) 1 Q6HR SQ Last administered on 06:16; Start 06/23/17 at 12:00; Stop 07/05/17 at 16:27; Status DC Sodium Chloride 1,000 ml @ 999 mls/hr BOLUS ONCE IV Last administered on 06/23 08:49; Start 06/23/17 at 08:00; Stop 06/23/17 at 09:00; Status DC Sodium Bicarbonate 100 meq/Sterile Water 950 ml @ 110 mls/hr Q8H39M IV Last administered on 06/24/17 02:48; Start 06/23/17 at 07:30; Stop 06/24/17 at 09:10; Status DC Potassium Chloride (KCl Powder) 40 meq ONCE ONCE PO Last administered on 06:45; Start 06/24/17 at 06:45; Stop 06/24/17 at 06:46; Status DC Sodium Phosphate 15 mmol/Sodium Chloride 155 ml @ 38.75 mls/ hr ONCE ONCE IV Last administered on 06/24/17 08:27; Start 06/24/17 at 08:00; Stop 06/24/17 at 11: 59; Status DC Water (Free Water) VOLUME: 200 ML Q4HR G-TUBE Last administered on 07/02/17 16: 00; Start 06/24/17 at 12:00; Stop 07/05/17 at 10:15; Status DC Sodium Chloride 1,000 ml @ 999 mls/hr BOLUS ONCE IV Last administered on 10:41; Start 06/24/17 at 09:15; Stop 06/24/17 at 10:15; Status DC Metoprolol Tartrate (Lopressor) 12.5 mg Q12HR PO Last administered on 06/27/17 20:02; Start 06/24/17 at 21:00; Stop 06/29/17 at 07:55; Status DC Miscellaneous (Pill Splitter) 1 ea UNSCH PRN OTHER SEE LABEL COMMENTS; Start at 15:00 Pharmacy Profile Note 0 ml @ 0 mls/hr UNSCH OTHER ; Start 06/24/17 at 22:30; Stop 06/27/17 at 13:12; Status DC Vancomycin HCl 1000 mg/Sodium Chloride 250 ml @ 250 mls/hr ONCE ONCE IV Last administered on 06/24/17 22:46; Start 06/24/17 at 22:30; Stop 06/24/17 at 23:29; Status DC Potassium Phosphate 30 mmol/ Sodium Chloride 260 ml @ 43.333 mls/ hr ONCE ONCE IV Last administered on 06/25/17 11:00; Start 06/25/17 at 11:00; Stop at 16:59; Status DC Vancomycin HCl 1000 mg/Sodium Chloride 250 ml @ 250 mls/hr Q24H IV Last administered on 06/27/17 06:11; Start 06/26/17 at 02:00; Stop 06/27/17 at 09:08; Status DC Miscellaneous Information SPECIFIC LAB TO BE DRAWN: VANCO TROUGH DATE... ONCE ONCE .XX ; Start 06/27/17 at 01:45; Stop 06/27/17 at 01:46; Status DC Lisinopril (Prinivil) 5 mg DAILY OG-TUBE Last administered on 06/28/17 08:00; Start 06/27/17 at 09:00; Stop 06/28/17 at 08:48; Status DC Potassium Chloride (KCl Powder) 30 meq ONCE ONCE NG Last administered on 14:00; Start 06/26/17 at 14:00; Stop 06/26/17 at 14:01; Status DC Pantoprazole Sodium (Protonix Inj) 40 mg Q12H IV PUSH Last administered on 10:37; Start 06/26/17 at 23:00; Stop 06/27/17 at 13:02; Status DC Vancomycin HCl 1000 mg/Sodium Chloride 250 ml @ 250 mls/hr Q18H IV ; Start 06/28 at 00:00; Stop 06/28/17 at 00:00; Status DC Miscellaneous Information SPECIFIC LAB TO BE ... ONCE ONCE .XX ; Start at 11:45; Stop 06/29/17 at 11:46; Status Cancel Levofloxacin/ Dextrose 150 ml @ 100 mls/hr Q24H IV Last administered on 14:04; Start 06/27/17 at 14:00; Stop 07/15/17 at 15:55; Status DC Pantoprazole Sodium 80 mg/ Sodium Chloride 100 ml @ 10 mls/hr Q10H IV Last administered on 06/28/17 22:58; Start 06/27/17 at 16:00; Stop 06/29/17 at 07:21; Status DC Potassium Chloride 100 ml @ 50 mls/hr Q2H PRN IV For Potassium 2.8 - 3.2 mEq/L ; Start 06/28/17 at 03:30; Stop 06/30/17 at 12:31; Status DC Potassium Chloride 100 ml @ 50 mls/hr Q2H PRN IV For Potassium 2.8 - 3.2 mEq/L ; Start 06/28/17 at 03:30; Stop 06/30/17 at 12:31; Status DC Potassium Bicarb/ Potassium Chloride (K-Lyte Cl Eff) 50 meq UNSCH PRN PO For Potassium 3.3 - 3.5 mEq/L; Start 06/28/17 at 03:30; Stop 06/30/17 at 12:31; Status DC Potassium Chloride 100 ml @ 25 mls/hr UNSCH PRN IV For Potassium 3.3 - 3.5 mEq /L; Start 06/28/17 at 03:30; Stop 06/30/17 at 12:31; Status DC Potassium Chloride 100 ml @ 50 mls/hr Q2H PRN IV For Potassium 3.3 - 3.5 mEq/ L Last administered on 06/28/17 07:10; Start 06/28/17 at 03:30; Stop 06/30/17 at 12:31; Status DC Magnesium Sulfate 4 gm/Sodium Chloride 100 ml @ 50 mls/hr UNSCH PRN IV For Magnesium 0.9 - 1.1 mg/dL; Start 06/28/17 at 03:30; Stop 06/30/17 at 12:31; Status DC Magnesium Oxide (Mag-Ox) 800 mg UNSCH PRN PO For Magnesium 1.2 - 1.6 mg/dL; Start 06/28/17 at 03:30; Stop 06/30/17 at 12:31; Status DC Magnesium Sulfate 2 gm/Sodium Chloride 100 ml @ 50 mls/hr UNSCH PRN IV For Magnesium 1.2 - 1.6 mg/dL; Start 06/28/17 at 03:30; Stop 06/30/17 at 12:31; Status DC Potassium Phosphate (K-Phos) 2,000 mg Q4H PRN PO For Phosphorus < 2.5 mg/dL; Start 06/28/17 at 03:30; Stop 06/30/17 at 12:31; Status DC Sodium Phosphate 30 mmol/Sodium Chloride 250 ml @ 42 mls/hr UNSCH PRN IV For Phosphorus < 2.5 mg/dL; Start 06/28/17 at 03:30; Stop 06/30/17 at 12:31; Status DC Potassium Phosphate (K-Phos) 2,000 mg UNSCH PRN PO/TUBE SEE LABEL COMMENTS; Start 06/28/17 at 03:30; Stop 06/30/17 at 12:31; Status DC Potassium Phosphate 30 mmol/ Sodium Chloride 260 ml @ 42 mls/hr UNSCH PRN IV SEE LABEL COMMENTS; Start 06/28/17 at 03:30; Stop 06/30/17 at 12:31; Status DC Lisinopril (Prinivil) 10 mg DAILY OG-TUBE ; Start 06/28/17 at 10:00; Stop at 13:47; Status DC Potassium Chloride/Sodium Chloride 1,000 ml @ 84 mls/hr [id number] IV Last administered on 06/28/17 13:22; Start 06/28/17 at 13:00; Stop 06/28/17 at 21:10; Status DC Aspirin (Aspirin Supp) 300 mg DAILY RECTAL Last administered on 06/29/17 09:20 ; Start 06/29/17 at 09:00; Stop 07/01/17 at 15:26; Status DC Dexamethasone Sodium Phosphate (Decadron Inj) 6 mg NOW ONCE IV Last administered on 06/28/17 21:55; Start 06/28/17 at 21:15; Stop 06/28/17 at 21:16; Status DC Dexamethasone Sodium Phosphate (Decadron Inj) 6 mg Q6H IV Last administered on 06/30/17 02:49; Start 06/29/17 at 03:00; Stop 06/30/17 at 03:01; Status DC Pantoprazole Sodium (Protonix Inj) 40 mg Q12H IV PUSH Last administered on 07/17 08:36; Start 06/29/17 at 08:00; Stop 07/17/17 at 09:44; Status DC Metoprolol Tartrate (Lopressor) 25 mg Q8HR PO Last administered on 07/29/17 21 :41; Start 06/29/17 at 14:00 Hydralazine HCl (Apresoline Inj) 20 mg Q4H PRN IV PUSH SBP >160; Start 06/29/17 at 08:00; Stop 06/30/17 at 20:50; Status DC Haloperidol Lactate (Haldol Inj) 5 mg Q6H PRN IM AGITATION Last administered on 07/01/17 21:23; Start 06/30/17 at 12:30 Dextrose/Sodium Chloride 1,000 ml @ 100 mls/hr Q10H IV Last administered on 09:00; Start 06/30/17 at 13:00; Stop 07/01/17 at 15:26; Status DC Albuterol/ Ipratropium (Duoneb Neb) 1 ampule Q4HR NEB NEB Last administered on 07/04/17 08:31; Start 06/30/17 at 12:30; Stop 07/04/17 at 12:29; Status DC Morphine Sulfate (Morphine Inj) 2 mg Q3H PRN IV PUSH PAIN GREATER THAN 5 Last administered on 07/17/17 09:04; Start 06/30/17 at 12:30; Stop 07/17/17 at 09:44 ; Status DC Enalaprilat (Vasotec Inj) 2.5 mg Q6H PRN IV PUSH SBP > 160 Last administered on 07/14/17 12:10; Start 06/30/17 at 21:00 Lactulose (Lactulose Liq) 30 ml BID PO Last administered on 07/18/17 09:52; Start 07/01/17 at 21:00; Stop 07/18/17 at 11:37; Status DC Potassium Chloride 100 ml @ 50 mls/hr Q2H IV Last administered on 07/02/17 21: 31; Start 07/02/17 at 17:30; Stop 07/02/17 at 21:29; Status DC Magnesium Oxide (Mag-Ox) 400 mg ONCE ONCE PO Last administered on 07/02/17 16: 48; Start 07/02/17 at 16:15; Stop 07/02/17 at 16:16; Status DC Rifaximin (Xifaxan) 550 mg BID PO Last administered on 07/30/17 09:28; Start 07/03/17 at 09:00 Potassium Bicarb/ Potassium Chloride (K-Lyte Cl Eff) 75 meq ONCE ONCE PO ; Start 07/03/17 at 14:15; Stop 07/03/17 at 14:15; Status DC Potassium Chloride 100 ml @ 50 mls/hr Q2H IV Last administered on 07/03/17 23 :12; Start 07/03/17 at 15:00; Stop 07/03/17 at 18:59; Status DC Potassium Bicarbonate (Effer-K Eff) 75 meq ONCE ONCE PO Last administered on 14:52; Start 07/03/17 at 15:00; Stop 07/03/17 at 15:01; Status DC Potassium Bicarbonate (Effer-K Eff) 25 meq ONCE ONCE PO Last administered on 12:00; Start 07/05/17 at 10:15; Stop 07/05/17 at 10:17; Status DC Lisinopril (Prinivil) 10 mg DAILY PO Last administered on 07/28/17 09:59; Start 07/07/17 at 09:00 Lisinopril (Prinivil) 10 mg ONCE ONCE PO Last administered on 07/06/17 14:00 ; Start 07/06/17 at 14:00; Stop 07/06/17 at 14:01; Status DC Furosemide (Lasix Inj) 40 mg ONCE ONCE IV PUSH Last administered on 07/08/17 03:30; Start 07/08/17 at 04:30; Stop 07/08/17 at 04:31; Status DC Cefazolin Sodium (Ancef Inj) 1,000 mg ONCE ONCE IV Last administered on 13:04; Start 07/08/17 at 13:03; Stop 07/08/17 at 13:04; Status DC Propofol (Diprivan 200 Mg/20 ml Inj) 120 mg STK-MED ONCE IV ; Start 07/08/17 at 11:53; Stop 07/08/17 at 13:05; Status DC Albuterol/ Ipratropium (Duoneb Neb) 1 ampule ONCE ONCE NEB ; Start 07/09/17 at 14:30; Stop 07/09/17 at 14:31; Status Cancel Albuterol/ Ipratropium (Duoneb Neb) 1 ampule Q2HR NEB PRN NEB SOB/WHEEZING Last administered on 07/30/17 10:00; Start 07/09/17 at 14:00 Albuterol/ Ipratropium (Duoneb Neb) 1 ampule Q6HR WHILE AWAKE NEB NEB Last administered on 07/13/17 08:44; Start 07/09/17 at 14:00; Stop 07/13/17 at 13:59 ; Status DC Amoxicillin/ Clavulanate Potassium (Augmentin) 875 mg Q12HR PO Last administered on 07/16/17 08:19; Start 07/09/17 at 14:00; Stop 07/16/17 at 13:59 ; Status DC Lactobacillus Acidophilus (Lactinex Pkt) 1 gm BID PO Last administered on 09:00; Start 07/09/17 at 21:00 Methylprednisolone Sodium Succinate (SoluMEDROL INJ) 40 mg ONCE ONCE IV PUSH Last administered on 07/09/17 17:06; Start 07/09/17 at 14:00; Stop 07/09/17 at 14:24; Status DC Potassium Chloride (KCl Powder) 60 meq ONCE ONCE PO Last administered on 13:49; Start 07/10/17 at 10:30; Stop 07/10/17 at 10:31; Status DC Potassium Phosphate (K-Phos) 500 mg ONCE ONCE PO Last administered on 12:29; Start 07/10/17 at 10:30; Stop 07/10/17 at 10:31; Status DC Magnesium Oxide (Mag-Ox) 400 mg ONCE ONCE PO Last administered on 07/10/17 12 :29; Start 07/10/17 at 10:30; Stop 07/10/17 at 10:31; Status DC Potassium Phosphate (K-Phos) 500 mg ONCE ONCE PO Last administered on 12:44; Start 07/11/17 at 11:15; Stop 07/11/17 at 11:32; Status DC Potassium Bicarb/ Potassium Chloride (K-Lyte Cl Eff) 25 meq ONCE ONCE PO Last administered on 07/13/17 14:47; Start 07/13/17 at 12:00; Stop 07/13/17 at 12:01; Status DC Hydralazine HCl (Apresoline) 10 mg Q6HR PRN PO SBP>160, DBP>90; Start 07/14/17 at 15:45 Pantoprazole Sodium (Protonix) 40 mg Q12HR PO Last administered on 07/30/17 09 :28; Start 07/17/17 at 21:00 Oxycodone/ Acetaminophen (Percocet 7.5-325 Mg) 1 tab Q4H PRN PO pain>5 Last administered on 07/30/17 06:52; Start 07/17/17 at 09:45 Lactulose (Lactulose Liq) 30 ml DAILY PO Last administered on 07/30/17 09:29; Start 07/19/17 at 09:00 Temazepam (Restoril) 15 mg HS PRN PO INSOMNIA Last administered on 07/29/17 22 :55; Start 07/18/17 at 14:00 Pneumococcal Polyvalent Vaccine (Pneumovax-23 Inj) 25 mcg ONCE ONCE IM ; Start 07/20/17 at 10:00; Stop 07/20/17 at 10:01; Status Cancel Influenza Virus Vaccine (Flu (Quadrivalent) Vaccine Inj) 0.5 ml ONCE ONCE IM ; Start 07/20/17 at 10:00; Stop 07/20/17 at 10:01; Status Cancel Influenza Virus Vaccine (Flu (Quadrivalent) Vaccine Inj) 0.5 ml ONCE ONCE IM Last administered on 07/19/17 11:00; Start 07/19/17 at 09:00; Stop 07/19/17 at 09:01; Status DC Pneumococcal Polyvalent Vaccine (Pneumovax-23 Inj) 25 mcg ONCE ONCE IM ; Start 07/18/17 at 19:15; Stop 07/18/17 at 19:15; Status DC Pneumococcal Polyvalent Vaccine (Pneumovax-23 Inj) 25 mcg ONCE ONCE IM Last administered on 07/19/17t 09:23; Start 07/19/17 at 09:00; Stop 07/19/17 at 09:01 ; Status DC IV Flush (NS Flush) 5 ml UNSCH PRN IV FLUSH FLUSH AFTER USING IV ACCESS; Start 07/25/17 at 11:15 A/P Problem List: (1) Thrombocytopenia ICD Code: D69.6 - Thrombocytopenia, unspecified (2) Polycythemia ICD Code: D75.1 - Secondary polycythemia (3) CVA (cerebral vascular accident) ICD Code: I63.9 - Cerebral infarction, unspecified (4) Stroke ICD Code: I63.9 - Cerebral infarction, unspecified Status: Acute (5) Incontinence ICD Code: R32 - Unspecified urinary incontinence (6) Cystitis ICD Code: N30.90 - Cystitis, unspecified without hematuria Assessment and Plan A/P CVA , with expressive aphasia and right hemiparesis, dysphagia. Continue with aspirin LDL 36 therefore statin is not indicated PT/OT/speech therapy Appreciate input from neurology Continue current treatment Possible aspiration pneumonia-treated. s/p Augmentin 07/16/17 Hyperammonemia-resolved Continue lactulose daily Monitor ammonia level accordingly Acute hypoxemic respiratory failure Resolved Continue with DuoNeb when necessary and maintain oxygen saturation above 92% Hypertension Cardiomyopathy 2-D echo revealed LVEF of 45%. Continue beta marilou. PRN antihypertensives Appreciate input from cardiology who signed off Dysphagia Continue with tube feed as well as thickened liquid diet History of chronic of chronic benzodiazepine use Advised on cessation Upper GI bleed Elevated transaminases Elevated ammonia Hypoalbuminemia Hepatitis C antibody positive Rectal bleeding Currently on Protonix Appreciate input from GI who signed off HIDA scan 06/28 with distended gallbladder-no evidence of acute cholecystitis s/p PEG placement H&H stable History of incontinence Resolved Acute kidney injury Resolved Thrombocytopenia resolved. Prophylaxis - GI - PO Protonix - DVT - SCD/heparin subcutaneous on hold due to GI bleed. clinically no change. continue current treatment. Discharge Planning awaiting placement- pending SSI. Problem Qualifiers (1) CVA (cerebral vascular accident): Qualified Codes: I63.9 - Cerebral infarction, unspecified (2) Stroke: Qualified Codes: I63.9 - Cerebral infarction, unspecified (3) Incontinence: Qualified Codes: R32 - Unspecified urinary incontinence Madhu Villaseñor MD Jul 30, 2017 11:13
[2017-07-30] MEDS: TEMAZEPAM 15 MG CAP PO PRN ×2 (20:59)
[2017-07-31] VITALS (8 sets, daily range): BP systolic 109–134; BP diastolic 63–90; PULSE 84–98; RESP 18–20; TEMP 97.4–98.2; O2SAT 92–98
[2017-07-31] MEDS: oxyCODONE/ACETAMINOPHEN 7.5 MG/325 MG TAB PO PRN ×10 (03:49→20:06)
[2017-07-31] MEDS: CHLORHEXIDINE GLUCONATE 2 % 1 PACK (2 CLOTHS) TOP SCH ×2 (04:00)
[2017-07-31] MEDS: METOPROLOL TARTRATE 25 MG TAB PO SCH ×4 (06:14→22:34)
[2017-07-31] MEDS: ARTIFICIAL TEARS OPTH SOLN 15 ML BTL EACH EYE SCH ×4 (07:50→20:07)
[2017-07-31] MEDS: CHLORHEXIDINE 0.12% (ORAL KIT) 15 ML CUP MT SCH ×4 (07:50→20:07)
[2017-07-31] MEDS: SODIUM CHLORIDE 0.9% FLUSH 10 ML FLUSH IV FLUSH SCH ×4 (07:50→22:34)
[2017-07-31] MEDS: LACTOBACILLUS ACIDOPHILUS 1 GM PACKET PO SCH ×4 (07:52→20:08)
[2017-07-31] MEDS: ASPIRIN 81 MG CHEW TAB PO SCH ×2 (07:52)
[2017-07-31] MEDS: LACTULOSE SYRUP 20 GM/30 ML CUP PO SCH ×2 (07:52)
[2017-07-31] MEDS: RESP: ALBUTEROL 2.5 MG/IPRATROPIUM 0.5 MG NEB (PRN) NEB ×4 (08:23→22:04)
[2017-07-31] MEDS: LISINOPRIL 10 MG TAB PO SCH ×2 (09:00)
--- NOTE | 2017-07-31 09:00 | HHI.PR ---
Subjective Remarks in no distress. resting comfortably. no new complaints. Objective Vitals Vital Signs Date Time Temp Pulse Resp B/P (MAP) Pulse Ox O2 Delivery O2 Flow Rate FiO2 07/31/17 08:24 95 Nasal Cannula 3.00 07/31/17 05:17 98.0 90 20 117/90 (99) 92 07/31/17 00:00 97.6 98 20 109/71 (84) 98 07/30/17 20:55 96.0 96 24 108/80 (89) 96 07/30/17 16:00 98.3 89 18 108/56 (73) 95 07/30/17 12:00 98.5 82 18 125/62 (83) 94 07/30/17 10:03 94 Nasal Cannula 3.00 I/O 07/30/17 07/30/17 07/30/17 07/31/17 07/31/17 07/31/17 07:00 15:00 23:00 07:00 15:00 23:00 Intake Total 480 ml 240 ml Balance 480 ml 240 ml Intake Oral 480 ml 240 ml # Voids 0 2 # Bowel Movements 0 1 Imaging Last Impressions Modified Barium Swallow 07/19/17 0000 Signed Impressions: Service Date/Time: Wednesday, July 19, 2017 00:00 - CONCLUSION: Penetration and aspiration as above within liquids, penetration with nectar thick consistency. Jude Braxton MD Chest X-Ray 07/09/17 0000 Signed Impressions: Service Date/Time: Sunday, July 09, 2017 14:04 - CONCLUSION: 1. Stable mild central bibasilar patchy airspace disease. 2. No significant interval change. Gustavo Santoro MD Head CT 07/06/17 0000 Signed Impressions: Service Date/Time: Thursday, July 06, 2017 09:07 - CONCLUSION: 1. 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 2. Mucous retention cyst within left maxillary and right sphenoid sinuses. Juan Pablo Huffman MD Abdomen X-Ray 07/01/17 1044 Signed Impressions: Service Date/Time: Saturday, July 01, 2017 10:45 - CONCLUSION: NG as above. Rudy Meng MD FACR Hepatobiliary Scan Nuclear Medicine 06/28/17 0900 Signed Impressions: Service Date/Time: Wednesday, June 28, 2017 10:17 - CONCLUSION: Nonspecific persistent distention of the gallbladder. No evidence of acute cholecystitis or biliary obstruction. Christopher Gutierrez MD Lung Scan-V Nuclear Medicine 06/24/17 Signed Impressions: Service Date/Time: Saturday, June 24, 2017 12:21 - CONCLUSION: 1. Low probability of pulmonary embolism Jose Richard MD Head Magnetic Resonance Angiography 06/24/17 Signed Impressions: Service Date/Time: Saturday, June 24, 2017 13:37 - CONCLUSION: Negative for major branch vessels obstruction in spite of MRI findings. Rudy Meng MD FACR Brain MRI 06/24/17 Signed Impressions: Service Date/Time: Saturday, June 24, 2017 13:37 - CONCLUSION: Findings consistent with acute infarct left sylvian region anteriorly without hemorrhage. Rudy Meng MD FACR Carotid Artery Ultrasound 06/22/17 Signed Impressions: Service Date/Time: Thursday, June 22, 2017 15:56 - CONCLUSION: No evidence of flow-limiting carotid stenosis. Christopher Leonardo MD Abdomen Ultrasound 06/22/17 Signed Impressions: Service Date/Time: Thursday, June 22, 2017 16:30 - CONCLUSION: Distended gallbladder with wall thickening and internal debris. Mild calyceal dilatation involving the kidneys bilaterally Christopher Leonardo MD Objective Remarks GENERAL: This is a well-nourished, well-developed patient, in no apparent distress. CARDIOVASCULAR: Regular rate and regular rhythm without murmurs, gallops, or rubs. RESPIRATORY: Clear to auscultation. Breath sounds equal bilaterally. No wheezes , rales, or rhonchi. GASTROINTESTINAL: Abdomen soft, non-tender, nondistended. Normal, active bowel sounds MUSCULOSKELETAL: Extremities without clubbing, cyanosis, or edema. NEURO: Alert & Oriented x4 to person, place, time, situation. Moves all ext x4 Procedures PEG tube insertion. Medications and IVs Current Medications Propofol 100 ml @ As Directed STK-MED ONCE .ROUTE Last administered on t 12:43; Start 06/22/17 at 12:25; Stop 06/22/17 at 12:26; Status DC IV Flush (NS Flush) 2 ml UNSCH PRN IV FLUSH FLUSH AFTER USING IV ACCESS; Start 06/22/17 at 12:30; Stop 06/22/17 at 15:32; Status DC Sodium Chloride 1,000 ml @ 1,000 mls/hr Q1H IV Last administered on 06/22/17 12:43; Start 06/22/17 at 12:25; Stop 06/22/17 at 13:24; Status DC Etomidate (Amidate Inj) 20 mg ONCE ONCE IVP Last administered on 06/22/17 12: 44; Start 06/22/17 at 12:30; Stop 06/22/17 at 12:34; Status DC Albuterol/ Ipratropium (Duoneb Neb) 1 ampule Q15M INH Last administered on 06/22 13:16; Start 06/22/17 at 12:30; Stop 06/22/17 at 13:01; Status DC Sodium Chloride (NS Flush) 2 ml UNSCH PRN IVF FLUSH AFTER USING IV ACCESS Last administered on 06/22/17 12:44; Start 06/22/17 at 12:30; Stop 06/22/17 at 15:32 ; Status DC Sodium Chloride 1,000 ml @ 999 mls/hr Q1H1M IV Last administered on 06/22/17 12:56; Start 06/22/17 at 12:45; Stop 06/22/17 at 13:45; Status DC Sodium Chloride 1,000 ml @ 999 mls/hr Q1H1M IV Last administered on 06/22/17 12:56; Start 06/22/17 at 12:45; Stop 06/22/17 at 13:45; Status DC Methylprednisolone Sodium Succinate (SoluMEDROL INJ) 125 mg ONCE ONCE IV PUSH Last administered on 06/22/17 12:56; Start 06/22/17 at 12:45; Stop 06/22/17 at 12:46; Status DC Hydromorphone HCl (Dilaudid Pf Inj) 0.5 mg ONCE ONCE IV PUSH Last administered on 06/22/17 12:56; Start 06/22/17 at 12:45; Stop 06/22/17 at 12:46 ; Status DC Succinylcholine Chloride (Quelicin Inj) 200 mg STK-MED ONCE .ROUTE Last administered on 06/22/17 12:20; Start 06/22/17 at 13:15; Stop 06/22/17 at 13:16 ; Status DC Vancomycin HCl 850 mg/Sodium Chloride 258.5 ml @ 250 mls/hr ONCE ONCE IV Last administered on 06/22/17 16:06; Start 06/22/17 at 15:15; Stop 06/22/17 at 16:17; Status DC Cefepime HCl 1000 mg/Sodium Chloride 100 ml @ 200 mls/hr ONCE ONCE IV Last administered on 06/22/17 15:08; Start 06/22/17 at 15:15; Stop 06/22/17 at 15:46 ; Status DC Sodium Chloride 1,000 ml @ 84 mls/hr [id number] IV Last administered on 03:06; Start 06/22/17 at 15:09; Stop 06/23/17 at 07:25; Status DC Sodium Chloride (NS Flush) 2 ml UNSCH PRN IV FLUSH FLUSH AFTER USING IV ACCESS Last administered on 07/11/17 06:10; Start 06/22/17 at 15:15 Sodium Chloride (NS Flush) 2 ml BID IV FLUSH Last administered on 07/31/17 07: 50; Start 06/22/17 at 21:00 Acetaminophen (Tylenol) 650 mg Q6H PRN PO PAIN 1-10 AND/OR FEVER >101F; Start 06/22/17 at 15:15; Stop 06/23/17 at 07:23; Status DC Famotidine (Pepcid Inj) 10 mg Q12HR IV PUSH Last administered on 06/26/17 20:36 ; Start 06/22/17 at 21:00; Stop 06/26/17 at 22:58; Status DC Lorazepam (Ativan Inj) 1 mg Q1H PRN IV Agitation/Sedation Last administered on 06/30/17 07:50; Start 06/22/17 at 15:15; Stop 06/30/17 at 12:29; Status DC Artificial Tears (Tears Naturale Opth Soln) 1 drop TID EACH EYE Last administered on 07/31/17 07:50; Start 06/22/17 at 18:00 Ondansetron HCl (Zofran Inj) 4 mg Q6H PRN IV NAUSEA OR VOMITING; Start at 15:15 Albuterol/ Ipratropium (Duoneb Neb) 1 ampule Q6HR NEB INH Last administered on 06/26/17 15:29; Start 06/22/17 at 16:00; Stop 06/26/17 at 15:59; Status DC Albuterol Sulfate (Albuterol Neb) 2.5 mg Q2HR NEB PRN INH SOB/WHEEZING Last administered on 07/09/17 11:13; Start 06/22/17 at 15:15; Stop 07/09/17 at 14:25 ; Status DC Heparin Sodium (Porcine) (Heparin Inj) 5,000 units Q12H SQ Last administered on 06/29/17 14:38; Start 06/22/17 at 15:15; Status Future Hold Miscellaneous Information 1 [id number] Last administered on 06/22/17 15:15; Start 06/22/17 at 15:15 Chlorhexidine Gluconate (Chlorhexidine 2% Cloth) 3 pack Taper DAILY@04 TOP Last administered on 07/19/17 04:00; Start 06/23/17 at 04:00; Stop 06/19/18 at 03:59 Chlorhexidine Gluconate (Chlorhexidine 2% Cloth) 3 pack UNSCH PRN TOP HYGIENIC CARE; Start 06/22/17 at 15:15 Senna/Docusate Sodium (Indy-Colace) 1 tab BID PO Last administered on 06/29/17 22:42; Start 06/22/17 at 21:00; Stop 06/30/17 at 11:09; Status DC Magnesium Hydroxide (Milk Of Magnesia Liq) 30 ml Q12H PRN PO MILD - MODERATE CONSTIPATION; Start 06/22/17 at 15:15 Sennosides (Senokot) 17.2 mg Q12H PRN PO MODERATE - SEVERE CONSTIPATION; Start 06/22/17 at 15:15 Bisacodyl (Dulcolax Supp) 10 mg DAILY PRN RECTAL SEVERE CONSITIPATION Last administered on 07/24/17 08:28; Start 06/22/17 at 15:15 Lactulose (Lactulose Liq) 30 ml DAILY PRN PO SEVERE CONSITIPATION; Start at 15:15 Chlorhexidine Gluconate (Peridex 0.12% Liq) 15 ml BID@08,20 MT Last administered on 07/31/17 07:50; Start 06/22/17 at 20:00 Propofol 100 ml @ 1.65 mls/hr TITRATE PRN IV SEDATION; Start 06/22/17 at 15:15 ; Stop 06/23/17 at 17:57; Status DC Fentanyl Citrate 250 ml @ 5 mls/hr TITRATE PRN IV SEDATION; Start 06/22/17 at 15:15; Stop 06/27/17 at 13:02; Status DC IV Flush (NS Flush) 2 ml BID IV FLUSH ; Start 06/22/17 at 21:00; Status UNV IV Flush (NS Flush) 2 ml UNSCH PRN IV FLUSH FLUSH AFTER USING IV ACCESS; Start 06/22/17 at 15:45; Status UNV Labetalol HCl (Trandate Inj) 10 mg Q2H PRN IV For SBP > 220 or DBP > 120; Start 06/22/17 at 15:45 Nicardipine HCl 25 mg/Sodium Chloride 260 ml @ 52 mls/hr TITRATE PRN IV Maintain BP goal; Start 06/22/17 at 16:00; Status Future Hold Aspirin (Aspirin Chew) 81 mg DAILY PO Last administered on 07/31/17 07:52; Start 06/23/17 at 09:00; Status Future hold Insulin Aspart (NovoLOG SUPPLEMENTAL SCALE) 1 ACHS SQ Last administered on 06/22 16:54; Start 06/22/17 at 16:00; Stop 06/23/17 at 07:23; Status DC Dextrose (D50w (Vial) Inj) 50 ml UNSCH PRN IV PUSH HYPOGLYCEMIA-SEE COMMENTS; Start 06/22/17 at 15:45 Glucagon (Glucagon Inj) 1 mg UNSCH PRN OTHER HYPOGLYCEMIA-SEE COMMENTS; Start 06/22/17 at 15:45 Piperacillin Sod/ Tazobactam Sod 50 ml @ 100 mls/hr Q6H IV Last administered on 06/29/17 05:17; Start 06/22/17 at 17:00; Stop 06/29/17 at 08:00; Status DC Lactulose (Lactulose Liq) 30 ml QID PO Last administered on 06/29/17 22:42; Start 06/22/17 at 18:00; Stop 07/01/17 at 15:26; Status DC Propofol 100 ml @ 1.65 mls/hr TITRATE PRN IV Ordered RASS Last administered on 06/28/17 05:59; Start 06/22/17 at 17:15; Stop 06/29/17 at 07:21; Status DC Calcium Gluconate 2 gm/Sodium Chloride 120 ml @ 120 mls/hr ONCE ONCE IV Last administered on 06/23/17 05:32; Start 06/23/17 at 06:00; Stop 06/23/17 at 06:59 ; Status DC Insulin Aspart (NovoLOG SUPPLEMENTAL SCALE) 1 Q6HR SQ Last administered on 06:16; Start 06/23/17 at 12:00; Stop 07/05/17 at 16:27; Status DC Sodium Chloride 1,000 ml @ 999 mls/hr BOLUS ONCE IV Last administered on 06/23 08:49; Start 06/23/17 at 08:00; Stop 06/23/17 at 09:00; Status DC Sodium Bicarbonate 100 meq/Sterile Water 950 ml @ 110 mls/hr Q8H39M IV Last administered on 06/24/17 02:48; Start 06/23/17 at 07:30; Stop 06/24/17 at 09:10; Status DC Potassium Chloride (KCl Powder) 40 meq ONCE ONCE PO Last administered on 06:45; Start 06/24/17 at 06:45; Stop 06/24/17 at 06:46; Status DC Sodium Phosphate 15 mmol/Sodium Chloride 155 ml @ 38.75 mls/ hr ONCE ONCE IV Last administered on 06/24/17 08:27; Start 06/24/17 at 08:00; Stop 06/24/17 at 11: 59; Status DC Water (Free Water) VOLUME: 200 ML Q4HR G-TUBE Last administered on 07/02/17 16: 00; Start 06/24/17 at 12:00; Stop 07/05/17 at 10:15; Status DC Sodium Chloride 1,000 ml @ 999 mls/hr BOLUS ONCE IV Last administered on 10:41; Start 06/24/17 at 09:15; Stop 06/24/17 at 10:15; Status DC Metoprolol Tartrate (Lopressor) 12.5 mg Q12HR PO Last administered on 06/27/17 20:02; Start 06/24/17 at 21:00; Stop 06/29/17 at 07:55; Status DC Miscellaneous (Pill Splitter) 1 ea UNSCH PRN OTHER SEE LABEL COMMENTS; Start at 15:00 Pharmacy Profile Note 0 ml @ 0 mls/hr UNSCH OTHER ; Start 06/24/17 at 22:30; Stop 06/27/17 at 13:12; Status DC Vancomycin HCl 1000 mg/Sodium Chloride 250 ml @ 250 mls/hr ONCE ONCE IV Last administered on 06/24/17 22:46; Start 06/24/17 at 22:30; Stop 06/24/17 at 23:29; Status DC Potassium Phosphate 30 mmol/ Sodium Chloride 260 ml @ 43.333 mls/ hr ONCE ONCE IV Last administered on 06/25/17 11:00; Start 06/25/17 at 11:00; Stop at 16:59; Status DC Vancomycin HCl 1000 mg/Sodium Chloride 250 ml @ 250 mls/hr Q24H IV Last administered on 06/27/17 06:11; Start 06/26/17 at 02:00; Stop 06/27/17 at 09:08; Status DC Miscellaneous Information SPECIFIC LAB TO BE DRAWN: VANCO TROUGH DATE... ONCE ONCE .XX ; Start 06/27/17 at 01:45; Stop 06/27/17 at 01:46; Status DC Lisinopril (Prinivil) 5 mg DAILY OG-TUBE Last administered on 06/28/17 08:00; Start 06/27/17 at 09:00; Stop 06/28/17 at 08:48; Status DC Potassium Chloride (KCl Powder) 30 meq ONCE ONCE NG Last administered on 14:00; Start 06/26/17 at 14:00; Stop 06/26/17 at 14:01; Status DC Pantoprazole Sodium (Protonix Inj) 40 mg Q12H IV PUSH Last administered on 10:37; Start 06/26/17 at 23:00; Stop 06/27/17 at 13:02; Status DC Vancomycin HCl 1000 mg/Sodium Chloride 250 ml @ 250 mls/hr Q18H IV ; Start 06/28 at 00:00; Stop 06/28/17 at 00:00; Status DC Miscellaneous Information SPECIFIC LAB TO BE ... ONCE ONCE .XX ; Start at 11:45; Stop 06/29/17 at 11:46; Status Cancel Levofloxacin/ Dextrose 150 ml @ 100 mls/hr Q24H IV Last administered on 14:04; Start 06/27/17 at 14:00; Stop 07/15/17 at 15:55; Status DC Pantoprazole Sodium 80 mg/ Sodium Chloride 100 ml @ 10 mls/hr Q10H IV Last administered on 06/28/17 22:58; Start 06/27/17 at 16:00; Stop 06/29/17 at 07:21; Status DC Potassium Chloride 100 ml @ 50 mls/hr Q2H PRN IV For Potassium 2.8 - 3.2 mEq/L ; Start 06/28/17 at 03:30; Stop 06/30/17 at 12:31; Status DC Potassium Chloride 100 ml @ 50 mls/hr Q2H PRN IV For Potassium 2.8 - 3.2 mEq/L ; Start 06/28/17 at 03:30; Stop 06/30/17 at 12:31; Status DC Potassium Bicarb/ Potassium Chloride (K-Lyte Cl Eff) 50 meq UNSCH PRN PO For Potassium 3.3 - 3.5 mEq/L; Start 06/28/17 at 03:30; Stop 06/30/17 at 12:31; Status DC Potassium Chloride 100 ml @ 25 mls/hr UNSCH PRN IV For Potassium 3.3 - 3.5 mEq /L; Start 06/28/17 at 03:30; Stop 06/30/17 at 12:31; Status DC Potassium Chloride 100 ml @ 50 mls/hr Q2H PRN IV For Potassium 3.3 - 3.5 mEq/ L Last administered on 06/28/17 07:10; Start 06/28/17 at 03:30; Stop 06/30/17 at 12:31; Status DC Magnesium Sulfate 4 gm/Sodium Chloride 100 ml @ 50 mls/hr UNSCH PRN IV For Magnesium 0.9 - 1.1 mg/dL; Start 06/28/17 at 03:30; Stop 06/30/17 at 12:31; Status DC Magnesium Oxide (Mag-Ox) 800 mg UNSCH PRN PO For Magnesium 1.2 - 1.6 mg/dL; Start 06/28/17 at 03:30; Stop 06/30/17 at 12:31; Status DC Magnesium Sulfate 2 gm/Sodium Chloride 100 ml @ 50 mls/hr UNSCH PRN IV For Magnesium 1.2 - 1.6 mg/dL; Start 06/28/17 at 03:30; Stop 06/30/17 at 12:31; Status DC Potassium Phosphate (K-Phos) 2,000 mg Q4H PRN PO For Phosphorus < 2.5 mg/dL; Start 06/28/17 at 03:30; Stop 06/30/17 at 12:31; Status DC Sodium Phosphate 30 mmol/Sodium Chloride 250 ml @ 42 mls/hr UNSCH PRN IV For Phosphorus < 2.5 mg/dL; Start 06/28/17 at 03:30; Stop 06/30/17 at 12:31; Status DC Potassium Phosphate (K-Phos) 2,000 mg UNSCH PRN PO/TUBE SEE LABEL COMMENTS; Start 06/28/17 at 03:30; Stop 06/30/17 at 12:31; Status DC Potassium Phosphate 30 mmol/ Sodium Chloride 260 ml @ 42 mls/hr UNSCH PRN IV SEE LABEL COMMENTS; Start 06/28/17 at 03:30; Stop 06/30/17 at 12:31; Status DC Lisinopril (Prinivil) 10 mg DAILY OG-TUBE ; Start 06/28/17 at 10:00; Stop at 13:47; Status DC Potassium Chloride/Sodium Chloride 1,000 ml @ 84 mls/hr [id number] IV Last administered on 06/28/17 13:22; Start 06/28/17 at 13:00; Stop 06/28/17 at 21:10; Status DC Aspirin (Aspirin Supp) 300 mg DAILY RECTAL Last administered on 06/29/17 09:20 ; Start 06/29/17 at 09:00; Stop 07/01/17 at 15:26; Status DC Dexamethasone Sodium Phosphate (Decadron Inj) 6 mg NOW ONCE IV Last administered on 06/28/17 21:55; Start 06/28/17 at 21:15; Stop 06/28/17 at 21:16; Status DC Dexamethasone Sodium Phosphate (Decadron Inj) 6 mg Q6H IV Last administered on 06/30/17 02:49; Start 06/29/17 at 03:00; Stop 06/30/17 at 03:01; Status DC Pantoprazole Sodium (Protonix Inj) 40 mg Q12H IV PUSH Last administered on 07/17 08:36; Start 06/29/17 at 08:00; Stop 07/17/17 at 09:44; Status DC Metoprolol Tartrate (Lopressor) 25 mg Q8HR PO Last administered on 07/31/17 06 :14; Start 06/29/17 at 14:00 Hydralazine HCl (Apresoline Inj) 20 mg Q4H PRN IV PUSH SBP >160; Start 06/29/17 at 08:00; Stop 06/30/17 at 20:50; Status DC Haloperidol Lactate (Haldol Inj) 5 mg Q6H PRN IM AGITATION Last administered on 07/01/17 21:23; Start 06/30/17 at 12:30 Dextrose/Sodium Chloride 1,000 ml @ 100 mls/hr Q10H IV Last administered on 09:00; Start 06/30/17 at 13:00; Stop 07/01/17 at 15:26; Status DC Albuterol/ Ipratropium (Duoneb Neb) 1 ampule Q4HR NEB NEB Last administered on 07/04/17 08:31; Start 06/30/17 at 12:30; Stop 07/04/17 at 12:29; Status DC Morphine Sulfate (Morphine Inj) 2 mg Q3H PRN IV PUSH PAIN GREATER THAN 5 Last administered on 07/17/17 09:04; Start 06/30/17 at 12:30; Stop 07/17/17 at 09:44 ; Status DC Enalaprilat (Vasotec Inj) 2.5 mg Q6H PRN IV PUSH SBP > 160 Last administered on 07/14/17 12:10; Start 06/30/17 at 21:00 Lactulose (Lactulose Liq) 30 ml BID PO Last administered on 07/18/17 09:52; Start 07/01/17 at 21:00; Stop 07/18/17 at 11:37; Status DC Potassium Chloride 100 ml @ 50 mls/hr Q2H IV Last administered on 07/02/17 21: 31; Start 07/02/17 at 17:30; Stop 07/02/17 at 21:29; Status DC Magnesium Oxide (Mag-Ox) 400 mg ONCE ONCE PO Last administered on 07/02/17 16: 48; Start 07/02/17 at 16:15; Stop 07/02/17 at 16:16; Status DC Rifaximin (Xifaxan) 550 mg BID PO Last administered on 07/30/17 21:00; Start 07/03/17 at 09:00 Potassium Bicarb/ Potassium Chloride (K-Lyte Cl Eff) 75 meq ONCE ONCE PO ; Start 07/03/17 at 14:15; Stop 07/03/17 at 14:15; Status DC Potassium Chloride 100 ml @ 50 mls/hr Q2H IV Last administered on 07/03/17 23 :12; Start 07/03/17 at 15:00; Stop 07/03/17 at 18:59; Status DC Potassium Bicarbonate (Effer-K Eff) 75 meq ONCE ONCE PO Last administered on 14:52; Start 07/03/17 at 15:00; Stop 07/03/17 at 15:01; Status DC Potassium Bicarbonate (Effer-K Eff) 25 meq ONCE ONCE PO Last administered on 12:00; Start 07/05/17 at 10:15; Stop 07/05/17 at 10:17; Status DC Lisinopril (Prinivil) 10 mg DAILY PO Last administered on 07/28/17 09:59; Start 07/07/17 at 09:00 Lisinopril (Prinivil) 10 mg ONCE ONCE PO Last administered on 07/06/17 14:00 ; Start 07/06/17 at 14:00; Stop 07/06/17 at 14:01; Status DC Furosemide (Lasix Inj) 40 mg ONCE ONCE IV PUSH Last administered on 07/08/17 03:30; Start 07/08/17 at 04:30; Stop 07/08/17 at 04:31; Status DC Cefazolin Sodium (Ancef Inj) 1,000 mg ONCE ONCE IV Last administered on 13:04; Start 07/08/17 at 13:03; Stop 07/08/17 at 13:04; Status DC Propofol (Diprivan 200 Mg/20 ml Inj) 120 mg STK-MED ONCE IV ; Start 07/08/17 at 11:53; Stop 07/08/17 at 13:05; Status DC Albuterol/ Ipratropium (Duoneb Neb) 1 ampule ONCE ONCE NEB ; Start 07/09/17 at 14:30; Stop 07/09/17 at 14:31; Status Cancel Albuterol/ Ipratropium (Duoneb Neb) 1 ampule Q2HR NEB PRN NEB SOB/WHEEZING Last administered on 07/31/17 08:23; Start 07/09/17 at 14:00 Albuterol/ Ipratropium (Duoneb Neb) 1 ampule Q6HR WHILE AWAKE NEB NEB Last administered on 07/13/17 08:44; Start 07/09/17 at 14:00; Stop 07/13/17 at 13:59 ; Status DC Amoxicillin/ Clavulanate Potassium (Augmentin) 875 mg Q12HR PO Last administered on 07/16/17 08:19; Start 07/09/17 at 14:00; Stop 07/16/17 at 13:59 ; Status DC Lactobacillus Acidophilus (Lactinex Pkt) 1 gm BID PO Last administered on 07:52; Start 07/09/17 at 21:00 Methylprednisolone Sodium Succinate (SoluMEDROL INJ) 40 mg ONCE ONCE IV PUSH Last administered on 07/09/17 17:06; Start 07/09/17 at 14:00; Stop 07/09/17 at 14:24; Status DC Potassium Chloride (KCl Powder) 60 meq ONCE ONCE PO Last administered on 13:49; Start 07/10/17 at 10:30; Stop 07/10/17 at 10:31; Status DC Potassium Phosphate (K-Phos) 500 mg ONCE ONCE PO Last administered on 12:29; Start 07/10/17 at 10:30; Stop 07/10/17 at 10:31; Status DC Magnesium Oxide (Mag-Ox) 400 mg ONCE ONCE PO Last administered on 07/10/17 12 :29; Start 07/10/17 at 10:30; Stop 07/10/17 at 10:31; Status DC Potassium Phosphate (K-Phos) 500 mg ONCE ONCE PO Last administered on 12:44; Start 07/11/17 at 11:15; Stop 07/11/17 at 11:32; Status DC Potassium Bicarb/ Potassium Chloride (K-Lyte Cl Eff) 25 meq ONCE ONCE PO Last administered on 07/13/17 14:47; Start 07/13/17 at 12:00; Stop 07/13/17 at 12:01; Status DC Hydralazine HCl (Apresoline) 10 mg Q6HR PRN PO SBP>160, DBP>90; Start 07/14/17 at 15:45 Pantoprazole Sodium (Protonix) 40 mg Q12HR PO Last administered on 07/30/17 21 :00; Start 07/17/17 at 21:00 Oxycodone/ Acetaminophen (Percocet 7.5-325 Mg) 1 tab Q4H PRN PO pain>5 Last administered on 07/31/17 03:49; Start 07/17/17 at 09:45 Lactulose (Lactulose Liq) 30 ml DAILY PO Last administered on 07/31/17 07:52; Start 07/19/17 at 09:00 Temazepam (Restoril) 15 mg HS PRN PO INSOMNIA Last administered on 07/30/17 20 :59; Start 07/18/17 at 14:00 Pneumococcal Polyvalent Vaccine (Pneumovax-23 Inj) 25 mcg ONCE ONCE IM ; Start 07/20/17 at 10:00; Stop 07/20/17 at 10:01; Status Cancel Influenza Virus Vaccine (Flu (Quadrivalent) Vaccine Inj) 0.5 ml ONCE ONCE IM ; Start 07/20/17 at 10:00; Stop 07/20/17 at 10:01; Status Cancel Influenza Virus Vaccine (Flu (Quadrivalent) Vaccine Inj) 0.5 ml ONCE ONCE IM Last administered on 07/19/17 11:00; Start 07/19/17 at 09:00; Stop 07/19/17 at 09:01; Status DC Pneumococcal Polyvalent Vaccine (Pneumovax-23 Inj) 25 mcg ONCE ONCE IM ; Start 07/18/17 at 19:15; Stop 07/18/17 at 19:15; Status DC Pneumococcal Polyvalent Vaccine (Pneumovax-23 Inj) 25 mcg ONCE ONCE IM Last administered on 07/19/17t 09:23; Start 07/19/17 at 09:00; Stop 07/19/17 at 09:01 ; Status DC IV Flush (NS Flush) 5 ml UNSCH PRN IV FLUSH FLUSH AFTER USING IV ACCESS; Start 07/25/17 at 11:15 A/P Problem List: (1) Thrombocytopenia ICD Code: D69.6 - Thrombocytopenia, unspecified (2) Polycythemia ICD Code: D75.1 - Secondary polycythemia (3) CVA (cerebral vascular accident) ICD Code: I63.9 - Cerebral infarction, unspecified (4) Stroke ICD Code: I63.9 - Cerebral infarction, unspecified Status: Acute (5) Incontinence ICD Code: R32 - Unspecified urinary incontinence (6) Cystitis ICD Code: N30.90 - Cystitis, unspecified without hematuria Assessment and Plan A/P CVA , with expressive aphasia and right hemiparesis, dysphagia. Continue with aspirin LDL 36 therefore statin is not indicated PT/OT/speech therapy Appreciate input from neurology Continue current treatment Possible aspiration pneumonia-treated. s/p Augmentin 07/16/17 Hyperammonemia-resolved Continue lactulose daily Monitor ammonia level accordingly Acute hypoxemic respiratory failure Resolved Continue with DuoNeb when necessary and maintain oxygen saturation above 92% Hypertension Cardiomyopathy 2-D echo revealed LVEF of 45%. Continue beta marilou. PRN antihypertensives Appreciate input from cardiology who signed off Dysphagia Continue with tube feed as well as thickened liquid diet History of chronic of chronic benzodiazepine use Advised on cessation Upper GI bleed Elevated transaminases Elevated ammonia Hypoalbuminemia Hepatitis C antibody positive Rectal bleeding Currently on Protonix Appreciate input from GI who signed off HIDA scan 06/28 with distended gallbladder-no evidence of acute cholecystitis s/p PEG placement H&H stable History of incontinence Resolved Acute kidney injury Resolved Thrombocytopenia resolved. Prophylaxis - GI - PO Protonix - DVT - SCD/heparin subcutaneous on hold due to GI bleed. clinically no change. continue current treatment. Discharge Planning awaiting placement- pending SSI. Problem Qualifiers (1) CVA (cerebral vascular accident): Qualified Codes: I63.9 - Cerebral infarction, unspecified (2) Stroke: Qualified Codes: I63.9 - Cerebral infarction, unspecified (3) Incontinence: Qualified Codes: R32 - Unspecified urinary incontinence Madhu Villaseñor MD Jul 31, 2017 09:00
[2017-07-31] MEDS: PANTOPRAZOLE SOD 40 MG DELAYED RELEASE TAB PO SCH ×2 (20:06)
[2017-07-31] MEDS: RIFAXIMIN 550 MG TAB PO SCH ×2 (20:07)
[2017-07-31] MEDS: TEMAZEPAM 15 MG CAP PO PRN ×2 (22:34)
[2017-08-01] VITALS (8 sets, daily range): BP systolic 108–132; BP diastolic 64–83; PULSE 74–81; RESP 18–20; TEMP 97.8–98.6; O2SAT 94–99
[2017-08-01] MEDS: oxyCODONE/ACETAMINOPHEN 7.5 MG/325 MG TAB PO PRN ×12 (00:25→21:40)
[2017-08-01] MEDS: CHLORHEXIDINE GLUCONATE 2 % 1 PACK (2 CLOTHS) TOP SCH ×2 (03:33)
[2017-08-01] MEDS: METOPROLOL TARTRATE 25 MG TAB PO SCH ×6 (06:43→21:41)
[2017-08-01] MEDS: CHLORHEXIDINE 0.12% (ORAL KIT) 15 ML CUP MT SCH ×4 (08:00→21:41)
[2017-08-01 08:02] LABS: BICARBONATE 31.3 MEQ/L (21.0-32.0); CREATININE 0.56 MG/DL (0.50-1.00)
[2017-08-01 08:07] LABS: AUTOMATED NEUTROPHIL # 5.3 TH/MM3 (1.8-7.7); BASOPHIL % 0.4 % (0.0-2.0); EOSINOPHIL # 0.2 TH/MM3 (0-0.4); EOSINOPHIL % 2.3 % (0.0-4.0); HEMOGLOBIN 9.4 GM/DL (11.6-15.3); LYMPH % 16.7 % (9.0-44.0); LYMPHOCYTE # 1.2 TH/MM3 (1.0-4.8); MEAN CELL VOLUME 92.8 FL (80.0-100.0); MEAN CORPUSCULAR HGB CONC 32.3 % (32.0-36.0); MONO % 7.7 % (0.0-8.0); MONOCYTE # 0.6 TH/MM3 (0-0.9); NEUT % 72.9 % (16.0-70.0); PLATELET COUNT 274 TH/MM3 (150-450); RED BLOOD COUNT 3.12 MIL/MM3 (4.00-5.30); WHITE BLOOD COUNT 7.3 TH/MM3 (4.0-11.0)
[2017-08-01] MEDS: RESP: ALBUTEROL 2.5 MG/IPRATROPIUM 0.5 MG NEB (PRN) NEB ×2 (08:58)
[2017-08-01] MEDS: ARTIFICIAL TEARS OPTH SOLN 15 ML BTL EACH EYE SCH ×6 (09:00→18:55)
[2017-08-01] MEDS: SODIUM CHLORIDE 0.9% FLUSH 10 ML FLUSH IV FLUSH SCH ×4 (09:00→21:40)
[2017-08-01] MEDS: LISINOPRIL 10 MG TAB PO SCH ×2 (09:00)
[2017-08-01] MEDS: PANTOPRAZOLE SOD 40 MG DELAYED RELEASE TAB PO SCH ×4 (09:02→21:41)
[2017-08-01] MEDS: LACTULOSE SYRUP 20 GM/30 ML CUP PO SCH ×2 (09:02)
[2017-08-01] MEDS: ASPIRIN 81 MG CHEW TAB PO SCH ×2 (09:03)
[2017-08-01] MEDS: RIFAXIMIN 550 MG TAB PO SCH ×4 (09:03→21:40)
[2017-08-01] MEDS: LACTOBACILLUS ACIDOPHILUS 1 GM PACKET PO SCH ×4 (09:06→21:41)
--- NOTE | 2017-08-01 09:24 | HHI.PR ---
Subjective Remarks in no distress. resting comfortably. no new complaints. Objective Vitals Vital Signs Date Time Temp Pulse Resp B/P (MAP) Pulse Ox O2 Delivery O2 Flow Rate FiO2 08/01/17 09:00 96 21 08/01/17 08:07 98.5 74 18 118/73 (88) 99 08/01/17 06:44 122/74 (90) 08/01/17 04:00 98.2 81 20 117/83 (94) 98 08/01/17 00:00 98.6 75 20 117/76 (90) 97 07/31/17 22:30 98 Nasal Cannula 3.00 07/31/17 22:05 96 Nasal Cannula 3.00 07/31/17 20:00 98.2 89 20 125/87 (100) 98 07/31/17 16:00 97.6 95 18 134/85 (101) 93 07/31/17 12:00 97.8 84 18 117/76 (90) 96 Manual Cuff/Auscultation I/O 07/31/17 07/31/17 07/31/17 08/01/17 08/01/17 08/01/17 07:00 15:00 23:00 07:00 15:00 23:00 Intake Total 240 ml 923 ml Balance 240 ml 923 ml Intake Oral 240 ml 240 ml Tube Feeding 483 ml Other 200 ml # Voids 2 Result Diagram: 08/01/1771308/01/17713 Imaging Last Impressions Modified Barium Swallow 07/19/17 0000 Signed Impressions: Service Date/Time: Wednesday, July 19, 2017 00:00 - CONCLUSION: Penetration and aspiration as above within liquids, penetration with nectar thick consistency. Jude Braxton MD Chest X-Ray 07/09/17 0000 Signed Impressions: Service Date/Time: Sunday, July 09, 2017 14:04 - CONCLUSION: 1. Stable mild central bibasilar patchy airspace disease. 2. No significant interval change. Gustavo Santoro MD Head CT 07/06/17 0000 Signed Impressions: Service Date/Time: Thursday, July 06, 2017 09:07 - CONCLUSION: 1. 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 2. Mucous retention cyst within left maxillary and right sphenoid sinuses. Juan Pablo Huffman MD Abdomen X-Ray 07/01/17 1044 Signed Impressions: Service Date/Time: Saturday, July 01, 2017 10:45 - CONCLUSION: NG as above. Rudy Meng MD FACR Hepatobiliary Scan Nuclear Medicine 06/28/17 0900 Signed Impressions: Service Date/Time: Wednesday, June 28, 2017 10:17 - CONCLUSION: Nonspecific persistent distention of the gallbladder. No evidence of acute cholecystitis or biliary obstruction. Christopher Gutierrez MD Lung Scan-VQ Nuclear Medicine 06/24/17 0000 Signed Impressions: Service Date/Time: Saturday, June 24, 2017 12:21 - CONCLUSION: 1. Low probability of pulmonary embolism Jose Richard MD Head Magnetic Resonance Angiography 06/24/17 0000 Signed Impressions: Service Date/Time: Saturday, June 24, 2017 13:37 - CONCLUSION: Negative for major branch vessels obstruction in spite of MRI findings. Rudy Meng MD FACR Brain MRI 06/24/17 0000 Signed Impressions: Service Date/Time: Saturday, June 24, 2017 13:37 - CONCLUSION: Findings consistent with acute infarct left sylvian region anteriorly without hemorrhage. Rudy Meng MD FACR Carotid Artery Ultrasound 06/22/17 0000 Signed Impressions: Service Date/Time: Thursday, June 22, 2017 15:56 - CONCLUSION: No evidence of flow-limiting carotid stenosis. Christopher Leonardo MD Abdomen Ultrasound 06/22/17 0000 Signed Impressions: Service Date/Time: Thursday, June 22, 2017 16:30 - CONCLUSION: Distended gallbladder with wall thickening and internal debris. Mild calyceal dilatation involving the kidneys bilaterally Christopher Lenoardo MD Objective Remarks GENERAL: This is a well-nourished, well-developed patient, in no apparent distress. CARDIOVASCULAR: Regular rate and regular rhythm without murmurs, gallops, or rubs. RESPIRATORY: Clear to auscultation. Breath sounds equal bilaterally. No wheezes , rales, or rhonchi. GASTROINTESTINAL: Abdomen soft, non-tender, nondistended. Normal, active bowel sounds MUSCULOSKELETAL: Extremities without clubbing, cyanosis, or edema. NEURO: Alert & Oriented x4 to person, place, time, situation. Moves all ext x4 Procedures PEG tube insertion. Medications and IVs Current Medications Propofol 100 ml @ As Directed STK-MED ONCE .ROUTE Last administered on 12:43; Start 06/22/17 at 12:25; Stop 06/22/17 at 12:26; Status DC IV Flush (NS Flush) 2 ml UNSCH PRN IV FLUSH FLUSH AFTER USING IV ACCESS; Start 06/22/17 at 12:30; Stop 06/22/17 at 15:32; Status DC Sodium Chloride 1,000 ml @ 1,000 mls/hr Q1H IV Last administered on 06/22/17 12:43; Start 06/22/17 at 12:25; Stop 06/22/17 at 13:24; Status DC Etomidate (Amidate Inj) 20 mg ONCE ONCE IVP Last administered on 06/22/17 12: 44; Start 06/22/17 at 12:30; Stop 06/22/17 at 12:34; Status DC Albuterol/ Ipratropium (Duoneb Neb) 1 ampule Q15M INH Last administered on 06/22 13:16; Start 06/22/17 at 12:30; Stop 06/22/17 at 13:01; Status DC Sodium Chloride (NS Flush) 2 ml UNSCH PRN IVF FLUSH AFTER USING IV ACCESS Last administered on 06/22/17 12:44; Start 06/22/17 at 12:30; Stop 06/22/17 at 15:32 ; Status DC Sodium Chloride 1,000 ml @ 999 mls/hr Q1H1M IV Last administered on 06/22/17 12:56; Start 06/22/17 at 12:45; Stop 06/22/17 at 13:45; Status DC Sodium Chloride 1,000 ml @ 999 mls/hr Q1H1M IV Last administered on 06/22/17 12:56; Start 06/22/17 at 12:45; Stop 06/22/17 at 13:45; Status DC Methylprednisolone Sodium Succinate (SoluMEDROL INJ) 125 mg ONCE ONCE IV PUSH Last administered on 06/22/17 12:56; Start 06/22/17 at 12:45; Stop 06/22/17 at 12:46; Status DC Hydromorphone HCl (Dilaudid Pf Inj) 0.5 mg ONCE ONCE IV PUSH Last administered on 06/22/17 12:56; Start 06/22/17 at 12:45; Stop 06/22/17 at 12:46 ; Status DC Succinylcholine Chloride (Quelicin Inj) 200 mg STK-MED ONCE .ROUTE Last administered on 06/22/17 12:20; Start 06/22/17 at 13:15; Stop 06/22/17 at 13:16 ; Status DC Vancomycin HCl 850 mg/Sodium Chloride 258.5 ml @ 250 mls/hr ONCE ONCE IV Last administered on 06/22/17 16:06; Start 06/22/17 at 15:15; Stop 06/22/17 at 16:17; Status DC Cefepime HCl 1000 mg/Sodium Chloride 100 ml @ 200 mls/hr ONCE ONCE IV Last administered on 06/22/17 15:08; Start 06/22/17 at 15:15; Stop 06/22/17 at 15:46 ; Status DC Sodium Chloride 1,000 ml @ 84 mls/hr [id number] IV Last administered on 03:06; Start 06/22/17 at 15:09; Stop 06/23/17 at 07:25; Status DC Sodium Chloride (NS Flush) 2 ml UNSCH PRN IV FLUSH FLUSH AFTER USING IV ACCESS Last administered on 07/11/17 06:10; Start 06/22/17 at 15:15 Sodium Chloride (NS Flush) 2 ml BID IV FLUSH Last administered on 07/31/17 22: 34; Start 06/22/17 at 21:00 Acetaminophen (Tylenol) 650 mg Q6H PRN PO PAIN 1-10 AND/OR FEVER >101F; Start 06/22/17 at 15:15; Stop 06/23/17 at 07:23; Status DC Famotidine (Pepcid Inj) 10 mg Q12HR IV PUSH Last administered on 06/26/17 20:36 ; Start 06/22/17 at 21:00; Stop 06/26/17 at 22:58; Status DC Lorazepam (Ativan Inj) 1 mg Q1H PRN IV Agitation/Sedation Last administered on 06/30/17 07:50; Start 06/22/17 at 15:15; Stop 06/30/17 at 12:29; Status DC Artificial Tears (Tears Naturale Opth Soln) 1 drop TID EACH EYE Last administered on 07/31/17 20:07; Start 06/22/17 at 18:00 Ondansetron HCl (Zofran Inj) 4 mg Q6H PRN IV NAUSEA OR VOMITING; Start at 15:15 Albuterol/ Ipratropium (Duoneb Neb) 1 ampule Q6HR NEB INH Last administered on 06/26/17 15:29; Start 06/22/17 at 16:00; Stop 06/26/17 at 15:59; Status DC Albuterol Sulfate (Albuterol Neb) 2.5 mg Q2HR NEB PRN INH SOB/WHEEZING Last administered on 07/09/17 11:13; Start 06/22/17 at 15:15; Stop 07/09/17 at 14:25 ; Status DC Heparin Sodium (Porcine) (Heparin Inj) 5,000 units Q12H SQ Last administered on 06/29/17 14:38; Start 06/22/17 at 15:15; Status Future Hold Miscellaneous Information 1 [id number] Last administered on 06/22/17 15:15; Start 06/22/17 at 15:15 Chlorhexidine Gluconate (Chlorhexidine 2% Cloth) 3 pack Taper DAILY@04 TOP Last administered on 07/19/17 04:00; Start 06/23/17 at 04:00; Stop 06/19/18 at 03:59 Chlorhexidine Gluconate (Chlorhexidine 2% Cloth) 3 pack UNSCH PRN TOP HYGIENIC CARE; Start 06/22/17 at 15:15 Senna/Docusate Sodium (Indy-Colace) 1 tab BID PO Last administered on 06/29/17 22:42; Start 06/22/17 at 21:00; Stop 06/30/17 at 11:09; Status DC Magnesium Hydroxide (Milk Of Magnesia Liq) 30 ml Q12H PRN PO MILD - MODERATE CONSTIPATION; Start 06/22/17 at 15:15 Sennosides (Senokot) 17.2 mg Q12H PRN PO MODERATE - SEVERE CONSTIPATION; Start 06/22/17 at 15:15 Bisacodyl (Dulcolax Supp) 10 mg DAILY PRN RECTAL SEVERE CONSITIPATION Last administered on 07/24/17 08:28; Start 06/22/17 at 15:15 Lactulose (Lactulose Liq) 30 ml DAILY PRN PO SEVERE CONSITIPATION; Start at 15:15 Chlorhexidine Gluconate (Peridex 0.12% Liq) 15 ml BID@08,20 MT Last administered on 07/31/17 07:50; Start 06/22/17 at 20:00 Propofol 100 ml @ 1.65 mls/hr TITRATE PRN IV SEDATION; Start 06/22/17 at 15:15 ; Stop 06/23/17 at 17:57; Status DC Fentanyl Citrate 250 ml @ 5 mls/hr TITRATE PRN IV SEDATION; Start 06/22/17 at 15:15; Stop 06/27/17 at 13:02; Status DC IV Flush (NS Flush) 2 ml BID IV FLUSH ; Start 06/22/17 at 21:00; Status UNV IV Flush (NS Flush) 2 ml UNSCH PRN IV FLUSH FLUSH AFTER USING IV ACCESS; Start 06/22/17 at 15:45; Status UNV Labetalol HCl (Trandate Inj) 10 mg Q2H PRN IV For SBP > 220 or DBP > 120; Start 06/22/17 at 15:45 Nicardipine HCl 25 mg/Sodium Chloride 260 ml @ 52 mls/hr TITRATE PRN IV Maintain BP goal; Start 06/22/17 at 16:00; Status Future Hold Aspirin (Aspirin Chew) 81 mg DAILY PO Last administered on 08/01/17 09:03; Start 06/23/17 at 09:00; Status Future hold Insulin Aspart (NovoLOG SUPPLEMENTAL SCALE) 1 ACHS SQ Last administered on 06/22 16:54; Start 06/22/17 at 16:00; Stop 06/23/17 at 07:23; Status DC Dextrose (D50w (Vial) Inj) 50 ml UNSCH PRN IV PUSH HYPOGLYCEMIA-SEE COMMENTS; Start 06/22/17 at 15:45 Glucagon (Glucagon Inj) 1 mg UNSCH PRN OTHER HYPOGLYCEMIA-SEE COMMENTS; Start 06/22/17 at 15:45 Piperacillin Sod/ Tazobactam Sod 50 ml @ 100 mls/hr Q6H IV Last administered on 06/29/17 05:17; Start 06/22/17 at 17:00; Stop 06/29/17 at 08:00; Status DC Lactulose (Lactulose Liq) 30 ml QID PO Last administered on 06/29/17 22:42; Start 06/22/17 at 18:00; Stop 07/01/17 at 15:26; Status DC Propofol 100 ml @ 1.65 mls/hr TITRATE PRN IV Ordered RASS Last administered on 06/28/17 05:59; Start 06/22/17 at 17:15; Stop 06/29/17 at 07:21; Status DC Calcium Gluconate 2 gm/Sodium Chloride 120 ml @ 120 mls/hr ONCE ONCE IV Last administered on 06/23/17 05:32; Start 06/23/17 at 06:00; Stop 06/23/17 at 06:59 ; Status DC Insulin Aspart (NovoLOG SUPPLEMENTAL SCALE) 1 Q6HR SQ Last administered on 06:16; Start 06/23/17 at 12:00; Stop 07/05/17 at 16:27; Status DC Sodium Chloride 1,000 ml @ 999 mls/hr BOLUS ONCE IV Last administered on 06/23 08:49; Start 06/23/17 at 08:00; Stop 06/23/17 at 09:00; Status DC Sodium Bicarbonate 100 meq/Sterile Water 950 ml @ 110 mls/hr Q8H39M IV Last administered on 06/24/17 02:48; Start 06/23/17 at 07:30; Stop 06/24/17 at 09:10; Status DC Potassium Chloride (KCl Powder) 40 meq ONCE ONCE PO Last administered on 06:45; Start 06/24/17 at 06:45; Stop 06/24/17 at 06:46; Status DC Sodium Phosphate 15 mmol/Sodium Chloride 155 ml @ 38.75 mls/ hr ONCE ONCE IV Last administered on 06/24/17 08:27; Start 06/24/17 at 08:00; Stop 06/24/17 at 11: 59; Status DC Water (Free Water) VOLUME: 200 ML Q4HR G-TUBE Last administered on 07/02/17 16: 00; Start 06/24/17 at 12:00; Stop 07/05/17 at 10:15; Status DC Sodium Chloride 1,000 ml @ 999 mls/hr BOLUS ONCE IV Last administered on 10:41; Start 06/24/17 at 09:15; Stop 06/24/17 at 10:15; Status DC Metoprolol Tartrate (Lopressor) 12.5 mg Q12HR PO Last administered on 06/27/17 20:02; Start 06/24/17 at 21:00; Stop 06/29/17 at 07:55; Status DC Miscellaneous (Pill Splitter) 1 ea UNSCH PRN OTHER SEE LABEL COMMENTS; Start at 15:00 Pharmacy Profile Note 0 ml @ 0 mls/hr UNSCH OTHER ; Start 06/24/17 at 22:30; Stop 06/27/17 at 13:12; Status DC Vancomycin HCl 1000 mg/Sodium Chloride 250 ml @ 250 mls/hr ONCE ONCE IV Last administered on 06/24/17 22:46; Start 06/24/17 at 22:30; Stop 06/24/17 at 23:29; Status DC Potassium Phosphate 30 mmol/ Sodium Chloride 260 ml @ 43.333 mls/ hr ONCE ONCE IV Last administered on 06/25/17 11:00; Start 06/25/17 at 11:00; Stop at 16:59; Status DC Vancomycin HCl 1000 mg/Sodium Chloride 250 ml @ 250 mls/hr Q24H IV Last administered on 06/27/17 06:11; Start 06/26/17 at 02:00; Stop 06/27/17 at 09:08; Status DC Miscellaneous Information SPECIFIC LAB TO BE DRAWN: VANCO TROUGH DATE... ONCE ONCE .XX ; Start 06/27/17 at 01:45; Stop 06/27/17 at 01:46; Status DC Lisinopril (Prinivil) 5 mg DAILY OG-TUBE Last administered on 06/28/17 08:00; Start 06/27/17 at 09:00; Stop 06/28/17 at 08:48; Status DC Potassium Chloride (KCl Powder) 30 meq ONCE ONCE NG Last administered on 14:00; Start 06/26/17 at 14:00; Stop 06/26/17 at 14:01; Status DC Pantoprazole Sodium (Protonix Inj) 40 mg Q12H IV PUSH Last administered on 10:37; Start 06/26/17 at 23:00; Stop 06/27/17 at 13:02; Status DC Vancomycin HCl 1000 mg/Sodium Chloride 250 ml @ 250 mls/hr Q18H IV ; Start 06/28 at 00:00; Stop 06/28/17 at 00:00; Status DC Miscellaneous Information SPECIFIC LAB TO BE JAYLEN... ONCE ONCE .XX ; Start at 11:45; Stop 06/29/17 at 11:46; Status Cancel Levofloxacin/ Dextrose 150 ml @ 100 mls/hr Q24H IV Last administered on 14:04; Start 06/27/17 at 14:00; Stop 07/15/17 at 15:55; Status DC Pantoprazole Sodium 80 mg/ Sodium Chloride 100 ml @ 10 mls/hr Q10H IV Last administered on 06/28/17 22:58; Start 06/27/17 at 16:00; Stop 06/29/17 at 07:21; Status DC Potassium Chloride 100 ml @ 50 mls/hr Q2H PRN IV For Potassium 2.8 - 3.2 mEq/L ; Start 06/28/17 at 03:30; Stop 06/30/17 at 12:31; Status DC Potassium Chloride 100 ml @ 50 mls/hr Q2H PRN IV For Potassium 2.8 - 3.2 mEq/L ; Start 06/28/17 at 03:30; Stop 06/30/17 at 12:31; Status DC Potassium Bicarb/ Potassium Chloride (K-Lyte Cl Eff) 50 meq UNSCH PRN PO For Potassium 3.3 - 3.5 mEq/L; Start 06/28/17 at 03:30; Stop 06/30/17 at 12:31; Status DC Potassium Chloride 100 ml @ 25 mls/hr UNSCH PRN IV For Potassium 3.3 - 3.5 mEq /L; Start 06/28/17 at 03:30; Stop 06/30/17 at 12:31; Status DC Potassium Chloride 100 ml @ 50 mls/hr Q2H PRN IV For Potassium 3.3 - 3.5 mEq/ L Last administered on 06/28/17 07:10; Start 06/28/17 at 03:30; Stop 06/30/17 at 12:31; Status DC Magnesium Sulfate 4 gm/Sodium Chloride 100 ml @ 50 mls/hr UNSCH PRN IV For Magnesium 0.9 - 1.1 mg/dL; Start 06/28/17 at 03:30; Stop 06/30/17 at 12:31; Status DC Magnesium Oxide (Mag-Ox) 800 mg UNSCH PRN PO For Magnesium 1.2 - 1.6 mg/dL; Start 06/28/17 at 03:30; Stop 06/30/17 at 12:31; Status DC Magnesium Sulfate 2 gm/Sodium Chloride 100 ml @ 50 mls/hr UNSCH PRN IV For Magnesium 1.2 - 1.6 mg/dL; Start 06/28/17 at 03:30; Stop 06/30/17 at 12:31; Status DC Potassium Phosphate (K-Phos) 2,000 mg Q4H PRN PO For Phosphorus < 2.5 mg/dL; Start 06/28/17 at 03:30; Stop 06/30/17 at 12:31; Status DC Sodium Phosphate 30 mmol/Sodium Chloride 250 ml @ 42 mls/hr UNSCH PRN IV For Phosphorus < 2.5 mg/dL; Start 06/28/17 at 03:30; Stop 06/30/17 at 12:31; Status DC Potassium Phosphate (K-Phos) 2,000 mg UNSCH PRN PO/TUBE SEE LABEL COMMENTS; Start 06/28/17 at 03:30; Stop 06/30/17 at 12:31; Status DC Potassium Phosphate 30 mmol/ Sodium Chloride 260 ml @ 42 mls/hr UNSCH PRN IV SEE LABEL COMMENTS; Start 06/28/17 at 03:30; Stop 06/30/17 at 12:31; Status DC Lisinopril (Prinivil) 10 mg DAILY OG-TUBE ; Start 06/28/17 at 10:00; Stop at 13:47; Status DC Potassium Chloride/Sodium Chloride 1,000 ml @ 84 mls/hr [id number] IV Last administered on 06/28/17 13:22; Start 06/28/17 at 13:00; Stop 06/28/17 at 21:10; Status DC Aspirin (Aspirin Supp) 300 mg DAILY RECTAL Last administered on 06/29/17 09:20 ; Start 06/29/17 at 09:00; Stop 07/01/17 at 15:26; Status DC Dexamethasone Sodium Phosphate (Decadron Inj) 6 mg NOW ONCE IV Last administered on 06/28/17 21:55; Start 06/28/17 at 21:15; Stop 06/28/17 at 21:16; Status DC Dexamethasone Sodium Phosphate (Decadron Inj) 6 mg Q6H IV Last administered on 06/30/17 02:49; Start 06/29/17 at 03:00; Stop 06/30/17 at 03:01; Status DC Pantoprazole Sodium (Protonix Inj) 40 mg Q12H IV PUSH Last administered on 07/17 08:36; Start 06/29/17 at 08:00; Stop 07/17/17 at 09:44; Status DC Metoprolol Tartrate (Lopressor) 25 mg Q8HR PO Last administered on 08/01/17 06 :43; Start 06/29/17 at 14:00 Hydralazine HCl (Apresoline Inj) 20 mg Q4H PRN IV PUSH SBP >160; Start 06/29/17 at 08:00; Stop 06/30/17 at 20:50; Status DC Haloperidol Lactate (Haldol Inj) 5 mg Q6H PRN IM AGITATION Last administered on 07/01/17 21:23; Start 06/30/17 at 12:30 Dextrose/Sodium Chloride 1,000 ml @ 100 mls/hr Q10H IV Last administered on 09:00; Start 06/30/17 at 13:00; Stop 07/01/17 at 15:26; Status DC Albuterol/ Ipratropium (Duoneb Neb) 1 ampule Q4HR NEB NEB Last administered on 07/04/17 08:31; Start 06/30/17 at 12:30; Stop 07/04/17 at 12:29; Status DC Morphine Sulfate (Morphine Inj) 2 mg Q3H PRN IV PUSH PAIN GREATER THAN 5 Last administered on 07/17/17 09:04; Start 06/30/17 at 12:30; Stop 07/17/17 at 09:44 ; Status DC Enalaprilat (Vasotec Inj) 2.5 mg Q6H PRN IV PUSH SBP > 160 Last administered on 07/14/17 12:10; Start 06/30/17 at 21:00 Lactulose (Lactulose Liq) 30 ml BID PO Last administered on 07/18/17 09:52; Start 07/01/17 at 21:00; Stop 07/18/17 at 11:37; Status DC Potassium Chloride 100 ml @ 50 mls/hr Q2H IV Last administered on 07/02/17 21: 31; Start 07/02/17 at 17:30; Stop 07/02/17 at 21:29; Status DC Magnesium Oxide (Mag-Ox) 400 mg ONCE ONCE PO Last administered on 07/02/17 16: 48; Start 07/02/17 at 16:15; Stop 07/02/17 at 16:16; Status DC Rifaximin (Xifaxan) 550 mg BID PO Last administered on 08/01/17 09:03; Start 07/03/17 at 09:00 Potassium Bicarb/ Potassium Chloride (K-Lyte Cl Eff) 75 meq ONCE ONCE PO ; Start 07/03/17 at 14:15; Stop 07/03/17 at 14:15; Status DC Potassium Chloride 100 ml @ 50 mls/hr Q2H IV Last administered on 07/03/17 23 :12; Start 07/03/17 at 15:00; Stop 07/03/17 at 18:59; Status DC Potassium Bicarbonate (Effer-K Eff) 75 meq ONCE ONCE PO Last administered on 14:52; Start 07/03/17 at 15:00; Stop 07/03/17 at 15:01; Status DC Potassium Bicarbonate (Effer-K Eff) 25 meq ONCE ONCE PO Last administered on 12:00; Start 07/05/17 at 10:15; Stop 07/05/17 at 10:17; Status DC Lisinopril (Prinivil) 10 mg DAILY PO Last administered on 07/28/17 09:59; Start 07/07/17 at 09:00 Lisinopril (Prinivil) 10 mg ONCE ONCE PO Last administered on 07/06/17 14:00 ; Start 07/06/17 at 14:00; Stop 07/06/17 at 14:01; Status DC Furosemide (Lasix Inj) 40 mg ONCE ONCE IV PUSH Last administered on 07/08/17 03:30; Start 07/08/17 at 04:30; Stop 07/08/17 at 04:31; Status DC Cefazolin Sodium (Ancef Inj) 1,000 mg ONCE ONCE IV Last administered on 13:04; Start 07/08/17 at 13:03; Stop 07/08/17 at 13:04; Status DC Propofol (Diprivan 200 Mg/20 ml Inj) 120 mg STK-MED ONCE IV ; Start 07/08/17 at 11:53; Stop 07/08/17 at 13:05; Status DC Albuterol/ Ipratropium (Duoneb Neb) 1 ampule ONCE ONCE NEB ; Start 07/09/17 at 14:30; Stop 07/09/17 at 14:31; Status Cancel Albuterol/ Ipratropium (Duoneb Neb) 1 ampule Q2HR NEB PRN NEB SOB/WHEEZING Last administered on 08/01/17 08:58; Start 07/09/17 at 14:00 Albuterol/ Ipratropium (Duoneb Neb) 1 ampule Q6HR WHILE AWAKE NEB NEB Last administered on 07/13/17 08:44; Start 07/09/17 at 14:00; Stop 07/13/17 at 13:59 ; Status DC Amoxicillin/ Clavulanate Potassium (Augmentin) 875 mg Q12HR PO Last administered on 07/16/17 08:19; Start 07/09/17 at 14:00; Stop 07/16/17 at 13:59 ; Status DC Lactobacillus Acidophilus (Lactinex Pkt) 1 gm BID PO Last administered on 09:06; Start 07/09/17 at 21:00 Methylprednisolone Sodium Succinate (SoluMEDROL INJ) 40 mg ONCE ONCE IV PUSH Last administered on 07/09/17 17:06; Start 07/09/17 at 14:00; Stop 07/09/17 at 14:24; Status DC Potassium Chloride (KCl Powder) 60 meq ONCE ONCE PO Last administered on 13:49; Start 07/10/17 at 10:30; Stop 07/10/17 at 10:31; Status DC Potassium Phosphate (K-Phos) 500 mg ONCE ONCE PO Last administered on 12:29; Start 07/10/17 at 10:30; Stop 07/10/17 at 10:31; Status DC Magnesium Oxide (Mag-Ox) 400 mg ONCE ONCE PO Last administered on 07/10/17 12 :29; Start 07/10/17 at 10:30; Stop 07/10/17 at 10:31; Status DC Potassium Phosphate (K-Phos) 500 mg ONCE ONCE PO Last administered on 12:44; Start 07/11/17 at 11:15; Stop 07/11/17 at 11:32; Status DC Potassium Bicarb/ Potassium Chloride (K-Lyte Cl Eff) 25 meq ONCE ONCE PO Last administered on 07/13/17 14:47; Start 07/13/17 at 12:00; Stop 07/13/17 at 12:01; Status DC Hydralazine HCl (Apresoline) 10 mg Q6HR PRN PO SBP>160, DBP>90; Start 07/14/17 at 15:45 Pantoprazole Sodium (Protonix) 40 mg Q12HR PO Last administered on 08/01/17 09 :02; Start 07/17/17 at 21:00 Oxycodone/ Acetaminophen (Percocet 7.5-325 Mg) 1 tab Q4H PRN PO pain>5 Last administered on 08/01/17 09:01; Start 07/17/17 at 09:45 Lactulose (Lactulose Liq) 30 ml DAILY PO Last administered on 08/01/17 09:02; Start 07/19/17 at 09:00 Temazepam (Restoril) 15 mg HS PRN PO INSOMNIA Last administered on 07/31/17 22 :34; Start 07/18/17 at 14:00 Pneumococcal Polyvalent Vaccine (Pneumovax-23 Inj) 25 mcg ONCE ONCE IM ; Start 07/20/17 at 10:00; Stop 07/20/17 at 10:01; Status Cancel Influenza Virus Vaccine (Flu (Quadrivalent) Vaccine Inj) 0.5 ml ONCE ONCE IM ; Start 07/20/17 at 10:00; Stop 07/20/17 at 10:01; Status Cancel Influenza Virus Vaccine (Flu (Quadrivalent) Vaccine Inj) 0.5 ml ONCE ONCE IM Last administered on 07/19/17 11:00; Start 07/19/17 at 09:00; Stop 07/19/17 at 09:01; Status DC Pneumococcal Polyvalent Vaccine (Pneumovax-23 Inj) 25 mcg ONCE ONCE IM ; Start 07/18/17 at 19:15; Stop 07/18/17 at 19:15; Status DC Pneumococcal Polyvalent Vaccine (Pneumovax-23 Inj) 25 mcg ONCE ONCE IM Last administered on 07/19/17 09:23; Start 07/19/17 at 09:00; Stop 07/19/17 at 09:01 ; Status DC IV Flush (NS Flush) 5 ml UNSCH PRN IV FLUSH FLUSH AFTER USING IV ACCESS; Start 07/25/17 at 11:15 A/P Problem List: (1) Thrombocytopenia ICD Code: D69.6 - Thrombocytopenia, unspecified (2) Polycythemia ICD Code: D75.1 - Secondary polycythemia (3) CVA (cerebral vascular accident) ICD Code: I63.9 - Cerebral infarction, unspecified (4) Stroke ICD Code: I63.9 - Cerebral infarction, unspecified Status: Acute (5) Incontinence ICD Code: R32 - Unspecified urinary incontinence (6) Cystitis ICD Code: N30.90 - Cystitis, unspecified without hematuria Assessment and Plan A/P CVA , with expressive aphasia and right hemiparesis, dysphagia. Continue with aspirin LDL 36 therefore statin is not indicated PT/OT/speech therapy Appreciate input from neurology Continue current treatment Possible aspiration pneumonia-treated. s/p Augmentin 07/16/17 Hyperammonemia-resolved Continue lactulose daily Monitor ammonia level accordingly Acute hypoxemic respiratory failure Resolved Continue with DuoNeb when necessary and maintain oxygen saturation above 92% Hypertension Cardiomyopathy 2-D echo revealed LVEF of 45%. Continue beta marilou. PRN antihypertensives Appreciate input from cardiology who signed off Dysphagia Continue with tube feed as well as thickened liquid diet History of chronic of chronic benzodiazepine use Advised on cessation Upper GI bleed Elevated transaminases Elevated ammonia Hypoalbuminemia Hepatitis C antibody positive Rectal bleeding Currently on Protonix Appreciate input from GI who signed off HIDA scan 06/28 with distended gallbladder-no evidence of acute cholecystitis s/p PEG placement H&H stable History of incontinence Resolved Acute kidney injury Resolved Thrombocytopenia resolved. Prophylaxis - GI - PO Protonix - DVT - SCD/heparin subcutaneous on hold due to GI bleed. clinically no change. continue current treatment. Discharge Planning awaiting placement- pending SSI. Problem Qualifiers (1) CVA (cerebral vascular accident): Qualified Codes: I63.9 - Cerebral infarction, unspecified (2) Stroke: Qualified Codes: I63.9 - Cerebral infarction, unspecified (3) Incontinence: Qualified Codes: R32 - Unspecified urinary incontinence Madhu Villaseñor MD Aug 01, 2017 09:24
[2017-08-01] MEDS: TEMAZEPAM 15 MG CAP PO PRN ×2 (21:41)
[2017-08-02] VITALS (7 sets, daily range): BP systolic 101–112; BP diastolic 60–79; PULSE 85–94; RESP 18–20; TEMP 97.3–98.7; O2SAT 93–100
[2017-08-02] MEDS: oxyCODONE/ACETAMINOPHEN 7.5 MG/325 MG TAB PO PRN ×12 (02:02→22:25)
[2017-08-02] MEDS: CHLORHEXIDINE GLUCONATE 2 % 1 PACK (2 CLOTHS) TOP SCH ×2 (03:03)
[2017-08-02] MEDS: METOPROLOL TARTRATE 25 MG TAB PO SCH ×6 (05:11→21:41)
[2017-08-02] MEDS: CHLORHEXIDINE 0.12% (ORAL KIT) 15 ML CUP MT SCH ×4 (08:00→20:00)
[2017-08-02] MEDS: LACTULOSE SYRUP 20 GM/30 ML CUP PO SCH ×2 (08:38)
[2017-08-02] MEDS: RIFAXIMIN 550 MG TAB PO SCH ×4 (08:38→21:41)
[2017-08-02] MEDS: LISINOPRIL 10 MG TAB PO SCH ×2 (08:38)
[2017-08-02] MEDS: PANTOPRAZOLE SOD 40 MG DELAYED RELEASE TAB PO SCH ×4 (08:38→21:41)
[2017-08-02] MEDS: ARTIFICIAL TEARS OPTH SOLN 15 ML BTL EACH EYE SCH ×6 (08:39→18:00)
[2017-08-02] MEDS: SODIUM CHLORIDE 0.9% FLUSH 10 ML FLUSH IV FLUSH SCH ×4 (08:39→21:00)
[2017-08-02] MEDS: ASPIRIN 81 MG CHEW TAB PO SCH ×2 (08:39)
[2017-08-02] MEDS: LACTOBACILLUS ACIDOPHILUS 1 GM PACKET PO SCH ×4 (09:00→21:41)
--- NOTE | 2017-08-02 11:05 | HHI.PR ---
Subjective Remarks in no distress. complaining of insomnia. no other complaints. Objective Vitals Vital Signs Date Time Temp Pulse Resp B/P (MAP) Pulse Ox O2 Delivery O2 Flow Rate FiO2 08/02/17 08:19 97.3 93 20 109/79 (89) 95 08/02/17 05:02 98.2 94 18 103/67 (79) 93 08/02/17 01:18 98.0 85 18 105/68 (80) 93 08/01/17 20:52 97.8 77 18 108/64 (79) 98 08/01/17 19:45 95 Nasal Cannula 2.00 08/01/17 18:25 18 08/01/17 16:27 98.5 81 18 116/76 (89) 94 08/01/17 12:16 97.9 81 19 132/73 (92) 99 I/O 08/01/17 08/01/17 08/01/17 08/02/17 08/02/17 08/02/17 07:00 15:00 23:00 07:00 15:00 23:00 Intake Total 923 ml 360 ml Balance 923 ml 360 ml Intake Oral 240 ml 360 ml Tube Feeding 483 ml Other 200 ml # Voids 2 3 1 # Bowel Movements 1 Result Diagram: 08/01/17 0714 08/01/17 0714 Imaging Last Impressions Modified Barium Swallow 07/19/17 0000 Signed Impressions: Service Date/Time: Wednesday, July 19, 2017 00:00 - CONCLUSION: Penetration and aspiration as above within liquids, penetration with nectar thick consistency. Jude Braxton MD Chest X-Ray 07/09/17 0000 Signed Impressions: Service Date/Time: Sunday, July 09, 2017 14:04 - CONCLUSION: 1. Stable mild central bibasilar patchy airspace disease. 2. No significant interval change. Gustavo Santoro MD Head CT 07/06/17 0000 Signed Impressions: Service Date/Time: Thursday, July 06, 2017 09:07 - CONCLUSION: 1. 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 2. Mucous retention cyst within left maxillary and right sphenoid sinuses. Juan Pablo Huffman MD Abdomen X-Ray 07/01/17 1044 Signed Impressions: Service Date/Time: Saturday, July 01, 2017 10:45 - CONCLUSION: NG as above. Rudy Meng MD FACR Hepatobiliary Scan Nuclear Medicine 06/28/17 0900 Signed Impressions: Service Date/Time: Wednesday, June 28, 2017 10:17 - CONCLUSION: Nonspecific persistent distention of the gallbladder. No evidence of acute cholecystitis or biliary obstruction. Christopher Gutierrez MD Lung Scan-VQ Nuclear Medicine 06/24/17 0000 Signed Impressions: Service Date/Time: Saturday, June 24, 2017 12:21 - CONCLUSION: 1. Low probability of pulmonary embolism Jose Richard MD Head Magnetic Resonance Angiography 06/24/17 0000 Signed Impressions: Service Date/Time: Saturday, June 24, 2017 13:37 - CONCLUSION: Negative for major branch vessels obstruction in spite of MRI findings. Rudy Meng MD FACR Brain MRI 06/24/17 0000 Signed Impressions: Service Date/Time: Saturday, June 24, 2017 13:37 - CONCLUSION: Findings consistent with acute infarct left sylvian region anteriorly without hemorrhage. Rudy Meng MD FACR Carotid Artery Ultrasound 06/22/17 0000 Signed Impressions: Service Date/Time: Thursday, June 22, 2017 15:56 - CONCLUSION: No evidence of flow-limiting carotid stenosis. Christopher Leonardo MD Abdomen Ultrasound 06/22/17 0000 Signed Impressions: Service Date/Time: Thursday, June 22, 2017 16:30 - CONCLUSION: Distended gallbladder with wall thickening and internal debris. Mild calyceal dilatation involving the kidneys bilaterally Christopher Leonardo MD Objective Remarks GENERAL: This is a well-nourished, well-developed patient, in no apparent distress. CARDIOVASCULAR: Regular rate and regular rhythm without murmurs, gallops, or rubs. RESPIRATORY: Clear to auscultation. Breath sounds equal bilaterally. No wheezes , rales, or rhonchi. GASTROINTESTINAL: Abdomen soft, non-tender, nondistended. Normal, active bowel sounds MUSCULOSKELETAL: Extremities without clubbing, cyanosis, or edema. NEURO: Alert & Oriented x4 to person, place, time, situation. Moves all ext x4 Procedures PEG tube insertion. Medications and IVs Current Medications Propofol 100 ml @ As Directed STK-MED ONCE .ROUTE Last administered on t 12:43; Start 06/22/17 at 12:25; Stop 06/22/17 at 12:26; Status DC IV Flush (NS Flush) 2 ml UNSCH PRN IV FLUSH FLUSH AFTER USING IV ACCESS; Start 06/22/17 at 12:30; Stop 06/22/17 at 15:32; Status DC Sodium Chloride 1,000 ml @ 1,000 mls/hr Q1H IV Last administered on 06/22/17 12:43; Start 06/22/17 at 12:25; Stop 06/22/17 at 13:24; Status DC Etomidate (Amidate Inj) 20 mg ONCE ONCE IVP Last administered on 06/22/17 12: 44; Start 06/22/17 at 12:30; Stop 06/22/17 at 12:34; Status DC Albuterol/ Ipratropium (Duoneb Neb) 1 ampule Q15M INH Last administered on 06/22 13:16; Start 06/22/17 at 12:30; Stop 06/22/17 at 13:01; Status DC Sodium Chloride (NS Flush) 2 ml UNSCH PRN IVF FLUSH AFTER USING IV ACCESS Last administered on 06/22/17 12:44; Start 06/22/17 at 12:30; Stop 06/22/17 at 15:32 ; Status DC Sodium Chloride 1,000 ml @ 999 mls/hr Q1H1M IV Last administered on 06/22/17 12:56; Start 06/22/17 at 12:45; Stop 06/22/17 at 13:45; Status DC Sodium Chloride 1,000 ml @ 999 mls/hr Q1H1M IV Last administered on 06/22/17 12:56; Start 06/22/17 at 12:45; Stop 06/22/17 at 13:45; Status DC Methylprednisolone Sodium Succinate (SoluMEDROL INJ) 125 mg ONCE ONCE IV PUSH Last administered on 06/22/17 12:56; Start 06/22/17 at 12:45; Stop 06/22/17 at 12:46; Status DC Hydromorphone HCl (Dilaudid Pf Inj) 0.5 mg ONCE ONCE IV PUSH Last administered on 06/22/17 12:56; Start 06/22/17 at 12:45; Stop 06/22/17 at 12:46 ; Status DC Succinylcholine Chloride (Quelicin Inj) 200 mg STK-MED ONCE .ROUTE Last administered on 06/22/17 12:20; Start 06/22/17 at 13:15; Stop 06/22/17 at 13:16 ; Status DC Vancomycin HCl 850 mg/Sodium Chloride 258.5 ml @ 250 mls/hr ONCE ONCE IV Last administered on 06/22/17 16:06; Start 06/22/17 at 15:15; Stop 06/22/17 at 16:17; Status DC Cefepime HCl 1000 mg/Sodium Chloride 100 ml @ 200 mls/hr ONCE ONCE IV Last administered on 06/22/17 15:08; Start 06/22/17 at 15:15; Stop 06/22/17 at 15:46 ; Status DC Sodium Chloride 1,000 ml @ 84 mls/hr [id number] IV Last administered on 03:06; Start 06/22/17 at 15:09; Stop 06/23/17 at 07:25; Status DC Sodium Chloride (NS Flush) 2 ml UNSCH PRN IV FLUSH FLUSH AFTER USING IV ACCESS Last administered on 07/11/17 06:10; Start 06/22/17 at 15:15 Sodium Chloride (NS Flush) 2 ml BID IV FLUSH Last administered on 08/02/17 08 :39; Start 06/22/17 at 21:00 Acetaminophen (Tylenol) 650 mg Q6H PRN PO PAIN 1-10 AND/OR FEVER >101F; Start 06/22/17 at 15:15; Stop 06/23/17 at 07:23; Status DC Famotidine (Pepcid Inj) 10 mg Q12HR IV PUSH Last administered on 06/26/17 20:36 ; Start 06/22/17 at 21:00; Stop 06/26/17 at 22:58; Status DC Lorazepam (Ativan Inj) 1 mg Q1H PRN IV Agitation/Sedation Last administered on 06/30/17 07:50; Start 06/22/17 at 15:15; Stop 06/30/17 at 12:29; Status DC Artificial Tears (Tears Naturale Opth Soln) 1 drop TID EACH EYE Last administered on 08/02/17 08:39; Start 06/22/17 at 18:00 Ondansetron HCl (Zofran Inj) 4 mg Q6H PRN IV NAUSEA OR VOMITING; Start at 15:15 Albuterol/ Ipratropium (Duoneb Neb) 1 ampule Q6HR NEB INH Last administered on 06/26/17 15:29; Start 06/22/17 at 16:00; Stop 06/26/17 at 15:59; Status DC Albuterol Sulfate (Albuterol Neb) 2.5 mg Q2HR NEB PRN INH SOB/WHEEZING Last administered on 07/09/17 11:13; Start 06/22/17 at 15:15; Stop 07/09/17 at 14:25 ; Status DC Heparin Sodium (Porcine) (Heparin Inj) 5,000 units Q12H SQ Last administered on 06/29/17 14:38; Start 06/22/17 at 15:15; Status Future Hold Miscellaneous Information 1 [id number] Last administered on 06/22/17 15:15; Start 06/22/17 at 15:15 Chlorhexidine Gluconate (Chlorhexidine 2% Cloth) 3 pack Taper DAILY@04 TOP Last administered on 07/19/17 04:00; Start 06/23/17 at 04:00; Stop 06/19/18 at 03:59 Chlorhexidine Gluconate (Chlorhexidine 2% Cloth) 3 pack UNSCH PRN TOP HYGIENIC CARE; Start 06/22/17 at 15:15 Senna/Docusate Sodium (Indy-Colace) 1 tab BID PO Last administered on 06/29/17 22:42; Start 06/22/17 at 21:00; Stop 06/30/17 at 11:09; Status DC Magnesium Hydroxide (Milk Of Magnesia Liq) 30 ml Q12H PRN PO MILD - MODERATE CONSTIPATION; Start 06/22/17 at 15:15 Sennosides (Senokot) 17.2 mg Q12H PRN PO MODERATE - SEVERE CONSTIPATION; Start 06/22/17 at 15:15 Bisacodyl (Dulcolax Supp) 10 mg DAILY PRN RECTAL SEVERE CONSITIPATION Last administered on 07/24/17 08:28; Start 06/22/17 at 15:15 Lactulose (Lactulose Liq) 30 ml DAILY PRN PO SEVERE CONSITIPATION; Start at 15:15 Chlorhexidine Gluconate (Peridex 0.12% Liq) 15 ml BID@08,20 MT Last administered on 08/02/17 08:00; Start 06/22/17 at 20:00 Propofol 100 ml @ 1.65 mls/hr TITRATE PRN IV SEDATION; Start 06/22/17 at 15:15 ; Stop 06/23/17 at 17:57; Status DC Fentanyl Citrate 250 ml @ 5 mls/hr TITRATE PRN IV SEDATION; Start 06/22/17 at 15:15; Stop 06/27/17 at 13:02; Status DC IV Flush (NS Flush) 2 ml BID IV FLUSH ; Start 06/22/17 at 21:00; Status UNV IV Flush (NS Flush) 2 ml UNSCH PRN IV FLUSH FLUSH AFTER USING IV ACCESS; Start 06/22/17 at 15:45; Status UNV Labetalol HCl (Trandate Inj) 10 mg Q2H PRN IV For SBP > 220 or DBP > 120; Start 06/22/17 at 15:45 Nicardipine HCl 25 mg/Sodium Chloride 260 ml @ 52 mls/hr TITRATE PRN IV Maintain BP goal; Start 06/22/17 at 16:00; Status Future Hold Aspirin (Aspirin Chew) 81 mg DAILY PO Last administered on 08/02/17 08:39; Start 06/23/17 at 09:00; Status Future hold Insulin Aspart (NovoLOG SUPPLEMENTAL SCALE) 1 ACHS SQ Last administered on 06/22 16:54; Start 06/22/17 at 16:00; Stop 06/23/17 at 07:23; Status DC Dextrose (D50w (Vial) Inj) 50 ml UNSCH PRN IV PUSH HYPOGLYCEMIA-SEE COMMENTS; Start 06/22/17 at 15:45 Glucagon (Glucagon Inj) 1 mg UNSCH PRN OTHER HYPOGLYCEMIA-SEE COMMENTS; Start 06/22/17 at 15:45 Piperacillin Sod/ Tazobactam Sod 50 ml @ 100 mls/hr Q6H IV Last administered on 06/29/17 05:17; Start 06/22/17 at 17:00; Stop 06/29/17 at 08:00; Status DC Lactulose (Lactulose Liq) 30 ml QID PO Last administered on 06/29/17 22:42; Start 06/22/17 at 18:00; Stop 07/01/17 at 15:26; Status DC Propofol 100 ml @ 1.65 mls/hr TITRATE PRN IV Ordered RASS Last administered on 06/28/17 05:59; Start 06/22/17 at 17:15; Stop 06/29/17 at 07:21; Status DC Calcium Gluconate 2 gm/Sodium Chloride 120 ml @ 120 mls/hr ONCE ONCE IV Last administered on 06/23/17 05:32; Start 06/23/17 at 06:00; Stop 06/23/17 at 06:59 ; Status DC Insulin Aspart (NovoLOG SUPPLEMENTAL SCALE) 1 Q6HR SQ Last administered on 06:16; Start 06/23/17 at 12:00; Stop 07/05/17 at 16:27; Status DC Sodium Chloride 1,000 ml @ 999 mls/hr BOLUS ONCE IV Last administered on 06/23 08:49; Start 06/23/17 at 08:00; Stop 06/23/17 at 09:00; Status DC Sodium Bicarbonate 100 meq/Sterile Water 950 ml @ 110 mls/hr Q8H39M IV Last administered on 06/24/17 02:48; Start 06/23/17 at 07:30; Stop 06/24/17 at 09:10; Status DC Potassium Chloride (KCl Powder) 40 meq ONCE ONCE PO Last administered on 06:45; Start 06/24/17 at 06:45; Stop 06/24/17 at 06:46; Status DC Sodium Phosphate 15 mmol/Sodium Chloride 155 ml @ 38.75 mls/ hr ONCE ONCE IV Last administered on 06/24/17 08:27; Start 06/24/17 at 08:00; Stop 06/24/17 at 11: 59; Status DC Water (Free Water) VOLUME: 200 ML Q4HR G-TUBE Last administered on 07/02/17 16: 00; Start 06/24/17 at 12:00; Stop 07/05/17 at 10:15; Status DC Sodium Chloride 1,000 ml @ 999 mls/hr BOLUS ONCE IV Last administered on 10:41; Start 06/24/17 at 09:15; Stop 06/24/17 at 10:15; Status DC Metoprolol Tartrate (Lopressor) 12.5 mg Q12HR PO Last administered on 06/27/17 20:02; Start 06/24/17 at 21:00; Stop 06/29/17 at 07:55; Status DC Miscellaneous (Pill Splitter) 1 ea UNSCH PRN OTHER SEE LABEL COMMENTS; Start at 15:00 Pharmacy Profile Note 0 ml @ 0 mls/hr UNSCH OTHER ; Start 06/24/17 at 22:30; Stop 06/27/17 at 13:12; Status DC Vancomycin HCl 1000 mg/Sodium Chloride 250 ml @ 250 mls/hr ONCE ONCE IV Last administered on 06/24/17 22:46; Start 06/24/17 at 22:30; Stop 06/24/17 at 23:29; Status DC Potassium Phosphate 30 mmol/ Sodium Chloride 260 ml @ 43.333 mls/ hr ONCE ONCE IV Last administered on 06/25/17 11:00; Start 06/25/17 at 11:00; Stop at 16:59; Status DC Vancomycin HCl 1000 mg/Sodium Chloride 250 ml @ 250 mls/hr Q24H IV Last administered on 06/27/17 06:11; Start 06/26/17 at 02:00; Stop 06/27/17 at 09:08; Status DC Miscellaneous Information SPECIFIC LAB TO BE DRAWN: VANCO TROUGH DATE... ONCE ONCE .XX ; Start 06/27/17 at 01:45; Stop 06/27/17 at 01:46; Status DC Lisinopril (Prinivil) 5 mg DAILY OG-TUBE Last administered on 06/28/17 08:00; Start 06/27/17 at 09:00; Stop 06/28/17 at 08:48; Status DC Potassium Chloride (KCl Powder) 30 meq ONCE ONCE NG Last administered on 14:00; Start 06/26/17 at 14:00; Stop 06/26/17 at 14:01; Status DC Pantoprazole Sodium (Protonix Inj) 40 mg Q12H IV PUSH Last administered on 10:37; Start 06/26/17 at 23:00; Stop 06/27/17 at 13:02; Status DC Vancomycin HCl 1000 mg/Sodium Chloride 250 ml @ 250 mls/hr Q18H IV ; Start 06/28 at 00:00; Stop 06/28/17 at 00:00; Status DC Miscellaneous Information SPECIFIC LAB TO BE ... ONCE ONCE .XX ; Start at 11:45; Stop 06/29/17 at 11:46; Status Cancel Levofloxacin/ Dextrose 150 ml @ 100 mls/hr Q24H IV Last administered on 14:04; Start 06/27/17 at 14:00; Stop 07/15/17 at 15:55; Status DC Pantoprazole Sodium 80 mg/ Sodium Chloride 100 ml @ 10 mls/hr Q10H IV Last administered on 06/28/17 22:58; Start 06/27/17 at 16:00; Stop 06/29/17 at 07:21; Status DC Potassium Chloride 100 ml @ 50 mls/hr Q2H PRN IV For Potassium 2.8 - 3.2 mEq/L ; Start 06/28/17 at 03:30; Stop 06/30/17 at 12:31; Status DC Potassium Chloride 100 ml @ 50 mls/hr Q2H PRN IV For Potassium 2.8 - 3.2 mEq/L ; Start 06/28/17 at 03:30; Stop 06/30/17 at 12:31; Status DC Potassium Bicarb/ Potassium Chloride (K-Lyte Cl Eff) 50 meq UNSCH PRN PO For Potassium 3.3 - 3.5 mEq/L; Start 06/28/17 at 03:30; Stop 06/30/17 at 12:31; Status DC Potassium Chloride 100 ml @ 25 mls/hr UNSCH PRN IV For Potassium 3.3 - 3.5 mEq /L; Start 06/28/17 at 03:30; Stop 06/30/17 at 12:31; Status DC Potassium Chloride 100 ml @ 50 mls/hr Q2H PRN IV For Potassium 3.3 - 3.5 mEq/ L Last administered on 06/28/17 07:10; Start 06/28/17 at 03:30; Stop 06/30/17 at 12:31; Status DC Magnesium Sulfate 4 gm/Sodium Chloride 100 ml @ 50 mls/hr UNSCH PRN IV For Magnesium 0.9 - 1.1 mg/dL; Start 06/28/17 at 03:30; Stop 06/30/17 at 12:31; Status DC Magnesium Oxide (Mag-Ox) 800 mg UNSCH PRN PO For Magnesium 1.2 - 1.6 mg/dL; Start 06/28/17 at 03:30; Stop 06/30/17 at 12:31; Status DC Magnesium Sulfate 2 gm/Sodium Chloride 100 ml @ 50 mls/hr UNSCH PRN IV For Magnesium 1.2 - 1.6 mg/dL; Start 06/28/17 at 03:30; Stop 06/30/17 at 12:31; Status DC Potassium Phosphate (K-Phos) 2,000 mg Q4H PRN PO For Phosphorus < 2.5 mg/dL; Start 06/28/17 at 03:30; Stop 06/30/17 at 12:31; Status DC Sodium Phosphate 30 mmol/Sodium Chloride 250 ml @ 42 mls/hr UNSCH PRN IV For Phosphorus < 2.5 mg/dL; Start 06/28/17 at 03:30; Stop 06/30/17 at 12:31; Status DC Potassium Phosphate (K-Phos) 2,000 mg UNSCH PRN PO/TUBE SEE LABEL COMMENTS; Start 06/28/17 at 03:30; Stop 06/30/17 at 12:31; Status DC Potassium Phosphate 30 mmol/ Sodium Chloride 260 ml @ 42 mls/hr UNSCH PRN IV SEE LABEL COMMENTS; Start 06/28/17 at 03:30; Stop 06/30/17 at 12:31; Status DC Lisinopril (Prinivil) 10 mg DAILY OG-TUBE ; Start 06/28/17 at 10:00; Stop at 13:47; Status DC Potassium Chloride/Sodium Chloride 1,000 ml @ 84 mls/hr [id number] IV Last administered on 06/28/17 13:22; Start 06/28/17 at 13:00; Stop 06/28/17 at 21:10; Status DC Aspirin (Aspirin Supp) 300 mg DAILY RECTAL Last administered on 06/29/17 09:20 ; Start 06/29/17 at 09:00; Stop 07/01/17 at 15:26; Status DC Dexamethasone Sodium Phosphate (Decadron Inj) 6 mg NOW ONCE IV Last administered on 06/28/17 21:55; Start 06/28/17 at 21:15; Stop 06/28/17 at 21:16; Status DC Dexamethasone Sodium Phosphate (Decadron Inj) 6 mg Q6H IV Last administered on 06/30/17 02:49; Start 06/29/17 at 03:00; Stop 06/30/17 at 03:01; Status DC Pantoprazole Sodium (Protonix Inj) 40 mg Q12H IV PUSH Last administered on 07/17 08:36; Start 06/29/17 at 08:00; Stop 07/17/17 at 09:44; Status DC Metoprolol Tartrate (Lopressor) 25 mg Q8HR PO Last administered on 08/02/17 08:38; Start 06/29/17 at 14:00 Hydralazine HCl (Apresoline Inj) 20 mg Q4H PRN IV PUSH SBP >160; Start 06/29/17 at 08:00; Stop 06/30/17 at 20:50; Status DC Haloperidol Lactate (Haldol Inj) 5 mg Q6H PRN IM AGITATION Last administered on 07/01/17 21:23; Start 06/30/17 at 12:30 Dextrose/Sodium Chloride 1,000 ml @ 100 mls/hr Q10H IV Last administered on 09:00; Start 06/30/17 at 13:00; Stop 07/01/17 at 15:26; Status DC Albuterol/ Ipratropium (Duoneb Neb) 1 ampule Q4HR NEB NEB Last administered on 07/04/17 08:31; Start 06/30/17 at 12:30; Stop 07/04/17 at 12:29; Status DC Morphine Sulfate (Morphine Inj) 2 mg Q3H PRN IV PUSH PAIN GREATER THAN 5 Last administered on 07/17/17 09:04; Start 06/30/17 at 12:30; Stop 07/17/17 at 09:44 ; Status DC Enalaprilat (Vasotec Inj) 2.5 mg Q6H PRN IV PUSH SBP > 160 Last administered on 07/14/17 12:10; Start 06/30/17 at 21:00 Lactulose (Lactulose Liq) 30 ml BID PO Last administered on 07/18/17 09:52; Start 07/01/17 at 21:00; Stop 07/18/17 at 11:37; Status DC Potassium Chloride 100 ml @ 50 mls/hr Q2H IV Last administered on 07/02/17 21: 31; Start 07/02/17 at 17:30; Stop 07/02/17 at 21:29; Status DC Magnesium Oxide (Mag-Ox) 400 mg ONCE ONCE PO Last administered on 07/02/17 16: 48; Start 07/02/17 at 16:15; Stop 07/02/17 at 16:16; Status DC Rifaximin (Xifaxan) 550 mg BID PO Last administered on 08/02/17 08:38; Start 07/03/17 at 09:00 Potassium Bicarb/ Potassium Chloride (K-Lyte Cl Eff) 75 meq ONCE ONCE PO ; Start 07/03/17 at 14:15; Stop 07/03/17 at 14:15; Status DC Potassium Chloride 100 ml @ 50 mls/hr Q2H IV Last administered on 07/03/17 23 :12; Start 07/03/17 at 15:00; Stop 07/03/17 at 18:59; Status DC Potassium Bicarbonate (Effer-K Eff) 75 meq ONCE ONCE PO Last administered on 14:52; Start 07/03/17 at 15:00; Stop 07/03/17 at 15:01; Status DC Potassium Bicarbonate (Effer-K Eff) 25 meq ONCE ONCE PO Last administered on 12:00; Start 07/05/17 at 10:15; Stop 07/05/17 at 10:17; Status DC Lisinopril (Prinivil) 10 mg DAILY PO Last administered on 08/02/17 08:38; Start 07/07/17 at 09:00 Lisinopril (Prinivil) 10 mg ONCE ONCE PO Last administered on 07/06/17 14:00 ; Start 07/06/17 at 14:00; Stop 07/06/17 at 14:01; Status DC Furosemide (Lasix Inj) 40 mg ONCE ONCE IV PUSH Last administered on 07/08/17 03:30; Start 07/08/17 at 04:30; Stop 07/08/17 at 04:31; Status DC Cefazolin Sodium (Ancef Inj) 1,000 mg ONCE ONCE IV Last administered on 13:04; Start 07/08/17 at 13:03; Stop 07/08/17 at 13:04; Status DC Propofol (Diprivan 200 Mg/20 ml Inj) 120 mg STK-MED ONCE IV ; Start 07/08/17 at 11:53; Stop 07/08/17 at 13:05; Status DC Albuterol/ Ipratropium (Duoneb Neb) 1 ampule ONCE ONCE NEB ; Start 07/09/17 at 14:30; Stop 07/09/17 at 14:31; Status Cancel Albuterol/ Ipratropium (Duoneb Neb) 1 ampule Q2HR NEB PRN NEB SOB/WHEEZING Last administered on 08/01/17 08:58; Start 07/09/17 at 14:00 Albuterol/ Ipratropium (Duoneb Neb) 1 ampule Q6HR WHILE AWAKE NEB NEB Last administered on 07/13/17 08:44; Start 07/09/17 at 14:00; Stop 07/13/17 at 13:59 ; Status DC Amoxicillin/ Clavulanate Potassium (Augmentin) 875 mg Q12HR PO Last administered on 07/16/17 08:19; Start 07/09/17 at 14:00; Stop 07/16/17 at 13:59 ; Status DC Lactobacillus Acidophilus (Lactinex Pkt) 1 gm BID PO Last administered on 08/02 09:00; Start 07/09/17 at 21:00 Methylprednisolone Sodium Succinate (SoluMEDROL INJ) 40 mg ONCE ONCE IV PUSH Last administered on 07/09/17 17:06; Start 07/09/17 at 14:00; Stop 07/09/17 at 14:24; Status DC Potassium Chloride (KCl Powder) 60 meq ONCE ONCE PO Last administered on 13:49; Start 07/10/17 at 10:30; Stop 07/10/17 at 10:31; Status DC Potassium Phosphate (K-Phos) 500 mg ONCE ONCE PO Last administered on 12:29; Start 07/10/17 at 10:30; Stop 07/10/17 at 10:31; Status DC Magnesium Oxide (Mag-Ox) 400 mg ONCE ONCE PO Last administered on 07/10/17 12 :29; Start 07/10/17 at 10:30; Stop 07/10/17 at 10:31; Status DC Potassium Phosphate (K-Phos) 500 mg ONCE ONCE PO Last administered on 12:44; Start 07/11/17 at 11:15; Stop 07/11/17 at 11:32; Status DC Potassium Bicarb/ Potassium Chloride (K-Lyte Cl Eff) 25 meq ONCE ONCE PO Last administered on 07/13/17 14:47; Start 07/13/17 at 12:00; Stop 07/13/17 at 12:01; Status DC Hydralazine HCl (Apresoline) 10 mg Q6HR PRN PO SBP>160, DBP>90; Start 07/14/17 at 15:45 Pantoprazole Sodium (Protonix) 40 mg Q12HR PO Last administered on 08/02/17 08:38; Start 07/17/17 at 21:00 Oxycodone/ Acetaminophen (Percocet 7.5-325 Mg) 1 tab Q4H PRN PO pain>5 Last administered on 08/02/17 10:19; Start 07/17/17 at 09:45 Lactulose (Lactulose Liq) 30 ml DAILY PO Last administered on 08/02/17 08:38 ; Start 07/19/17 at 09:00 Temazepam (Restoril) 15 mg HS PRN PO INSOMNIA Last administered on 08/01/17 21 :41; Start 07/18/17 at 14:00 Pneumococcal Polyvalent Vaccine (Pneumovax-23 Inj) 25 mcg ONCE ONCE IM ; Start 07/20/17 at 10:00; Stop 07/20/17 at 10:01; Status Cancel Influenza Virus Vaccine (Flu (Quadrivalent) Vaccine Inj) 0.5 ml ONCE ONCE IM ; Start 07/20/17 at 10:00; Stop 07/20/17 at 10:01; Status Cancel Influenza Virus Vaccine (Flu (Quadrivalent) Vaccine Inj) 0.5 ml ONCE ONCE IM Last administered on 07/19/17 11:00; Start 07/19/17 at 09:00; Stop 07/19/17 at 09:01; Status DC Pneumococcal Polyvalent Vaccine (Pneumovax-23 Inj) 25 mcg ONCE ONCE IM ; Start 07/18/17 at 19:15; Stop 07/18/17 at 19:15; Status DC Pneumococcal Polyvalent Vaccine (Pneumovax-23 Inj) 25 mcg ONCE ONCE IM Last administered on 07/19/17t 09:23; Start 07/19/17 at 09:00; Stop 07/19/17 at 09:01 ; Status DC IV Flush (NS Flush) 5 ml UNSCH PRN IV FLUSH FLUSH AFTER USING IV ACCESS; Start 07/25/17 at 11:15 A/P Problem List: (1) Thrombocytopenia ICD Code: D69.6 - Thrombocytopenia, unspecified (2) Polycythemia ICD Code: D75.1 - Secondary polycythemia (3) CVA (cerebral vascular accident) ICD Code: I63.9 - Cerebral infarction, unspecified (4) Stroke ICD Code: I63.9 - Cerebral infarction, unspecified Status: Acute (5) Incontinence ICD Code: R32 - Unspecified urinary incontinence (6) Cystitis ICD Code: N30.90 - Cystitis, unspecified without hematuria Assessment and Plan A/P CVA , with expressive aphasia and right hemiparesis, dysphagia. Continue with aspirin LDL 36 therefore statin is not indicated PT/OT/speech therapy Appreciate input from neurology Continue current treatment Possible aspiration pneumonia-treated. s/p Augmentin 07/16/17 Hyperammonemia-resolved Continue lactulose daily Monitor ammonia level accordingly Acute hypoxemic respiratory failure Resolved Continue with DuoNeb when necessary and maintain oxygen saturation above 92% Hypertension Cardiomyopathy 2-D echo revealed LVEF of 45%. Continue beta marilou. PRN antihypertensives Appreciate input from cardiology who signed off Dysphagia Continue with tube feed as well as thickened liquid diet History of chronic of chronic benzodiazepine use Advised on cessation Upper GI bleed Elevated transaminases Elevated ammonia Hypoalbuminemia Hepatitis C antibody positive Rectal bleeding Currently on Protonix Appreciate input from GI who signed off s/p EGD with gastritis and esophagitis. HIDA scan 06/28 with distended gallbladder-no evidence of acute cholecystitis s/p PEG placement History of incontinence Resolved Acute kidney injury Resolved Thrombocytopenia resolved. insomnia; ambien as needed. Prophylaxis - GI - PO Protonix - DVT - SCD/heparin subcutaneous on hold due to GI bleed. Discharge Planning awaiting placement- pending SSI. Problem Qualifiers (1) CVA (cerebral vascular accident): Qualified Codes: I63.9 - Cerebral infarction, unspecified (2) Stroke: Qualified Codes: I63.9 - Cerebral infarction, unspecified (3) Incontinence: Qualified Codes: R32 - Unspecified urinary incontinence Madhu Villaseñor MD Aug 02, 2017 11:05
[2017-08-02] MEDS ORDERED: ZOLPIDEM TARTRATE 5 MG TAB PO PRN ×2 (11:15)
[2017-08-02] MEDS: RESP: ALBUTEROL 2.5 MG/IPRATROPIUM 0.5 MG NEB (PRN) NEB ×2 (16:08)
[2017-08-02] MEDS: TEMAZEPAM 15 MG CAP PO PRN ×2 (23:54)
[2017-08-03] VITALS (7 sets, daily range): BP systolic 97–117; BP diastolic 54–75; PULSE 90–106; RESP 16–20; TEMP 98.2–98.7; O2SAT 93–98
[2017-08-03] MEDS: CHLORHEXIDINE GLUCONATE 2 % 1 PACK (2 CLOTHS) TOP SCH ×2 (00:33)
[2017-08-03] MEDS: oxyCODONE/ACETAMINOPHEN 7.5 MG/325 MG TAB PO PRN ×12 (02:59→22:48)
[2017-08-03] MEDS: METOPROLOL TARTRATE 25 MG TAB PO SCH ×6 (04:52→22:00)
[2017-08-03] MEDS: CHLORHEXIDINE 0.12% (ORAL KIT) 15 ML CUP MT SCH ×4 (08:00→20:00)
[2017-08-03] MEDS: ARTIFICIAL TEARS OPTH SOLN 15 ML BTL EACH EYE SCH ×6 (09:00→18:00)
[2017-08-03] MEDS: SODIUM CHLORIDE 0.9% FLUSH 10 ML FLUSH IV FLUSH SCH ×4 (09:00→22:48)
[2017-08-03] MEDS: LACTULOSE SYRUP 20 GM/30 ML CUP PO SCH ×2 (09:04)
[2017-08-03] MEDS: LACTOBACILLUS ACIDOPHILUS 1 GM PACKET PO SCH ×4 (09:04→22:51)
[2017-08-03] MEDS: RIFAXIMIN 550 MG TAB PO SCH ×4 (09:04→22:47)
[2017-08-03] MEDS: LISINOPRIL 10 MG TAB PO SCH ×2 (09:05)
[2017-08-03] MEDS: ASPIRIN 81 MG CHEW TAB PO SCH ×2 (09:05)
[2017-08-03] MEDS: PANTOPRAZOLE SOD 40 MG DELAYED RELEASE TAB PO SCH ×4 (09:05→22:47)
--- NOTE | 2017-08-03 10:58 | HHI.PR ---
Subjective Remarks in no acute distress. denies pain. no new complaints. d/w the RN. Objective Vitals Vital Signs Date Time Temp Pulse Resp B/P (MAP) Pulse Ox O2 Delivery O2 Flow Rate FiO2 08/03/17 08:00 98.5 99 16 116/75 (89) 94 08/03/17 04:00 98.6 93 20 105/64 (78) 93 08/03/17 00:00 98.7 92 20 117/54 (75) 94 08/02/17 22:19 94 Nasal Cannula 2.00 08/02/17 20:00 98.7 89 20 101/60 (74) 94 08/02/17 16:31 18 08/02/17 16:13 97.4 92 18 112/60 (77) 100 08/02/17 16:10 97 Nasal Cannula 3.00 08/02/17 12:12 98.1 93 18 109/61 (77) 99 I/O 08/02/17 08/02/17 08/02/17 08/03/17 08/03/17 08/03/17 07:00 15:00 23:00 07:00 15:00 23:00 Intake Total 240 ml 640 ml Balance 240 ml 640 ml Intake Oral 240 ml Tube Feeding 540 ml Tube Irrigant 100 ml # Voids 1 2 3 1 # Bowel Movements 1 Result Diagram: 08/01/1771308/01/17713 Imaging Last Impressions Modified Barium Swallow 07/19/17 0000 Signed Impressions: Service Date/Time: Wednesday, July 19, 2017 00:00 - CONCLUSION: Penetration and aspiration as above within liquids, penetration with nectar thick consistency. Jude Braxton MD Chest X-Ray 07/09/17 0000 Signed Impressions: Service Date/Time: Sunday, July 09, 2017 14:04 - CONCLUSION: 1. Stable mild central bibasilar patchy airspace disease. 2. No significant interval change. Gustavo Santoro MD Head CT 07/06/17 0000 Signed Impressions: Service Date/Time: Thursday, July 06, 2017 09:07 - CONCLUSION: 1. 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 2. Mucous retention cyst within left maxillary and right sphenoid sinuses. Juan Pablo Huffman MD Abdomen X-Ray 07/01/17 1044 Signed Impressions: Service Date/Time: Saturday, July 01, 2017 10:45 - CONCLUSION: NG as above. Rudy Meng MD FACR Hepatobiliary Scan Nuclear Medicine 06/28/17 0900 Signed Impressions: Service Date/Time: Wednesday, June 28, 2017 10:17 - CONCLUSION: Nonspecific persistent distention of the gallbladder. No evidence of acute cholecystitis or biliary obstruction. Christopher Gutierrez MD Lung Scan-VQ Nuclear Medicine 06/24/17 0000 Signed Impressions: Service Date/Time: Saturday, June 24, 2017 12:21 - CONCLUSION: 1. Low probability of pulmonary embolism Jose Richard MD Head Magnetic Resonance Angiography 06/24/17 0000 Signed Impressions: Service Date/Time: Saturday, June 24, 2017 13:37 - CONCLUSION: Negative for major branch vessels obstruction in spite of MRI findings. Rudy Meng MD FACR Brain MRI 06/24/17 0000 Signed Impressions: Service Date/Time: Saturday, June 24, 2017 13:37 - CONCLUSION: Findings consistent with acute infarct left sylvian region anteriorly without hemorrhage. Rudy Meng MD FACR Carotid Artery Ultrasound 06/22/17 0000 Signed Impressions: Service Date/Time: Thursday, June 22, 2017 15:56 - CONCLUSION: No evidence of flow-limiting carotid stenosis. Christopher Leonardo MD Abdomen Ultrasound 06/22/17 0000 Signed Impressions: Service Date/Time: Thursday, June 22, 2017 16:30 - CONCLUSION: Distended gallbladder with wall thickening and internal debris. Mild calyceal dilatation involving the kidneys bilaterally Christopher Leonardo MD Objective Remarks GENERAL: This is a well-nourished, well-developed patient, in no apparent distress. CARDIOVASCULAR: Regular rate and regular rhythm without murmurs, gallops, or rubs. RESPIRATORY: Clear to auscultation. Breath sounds equal bilaterally. No wheezes , rales, or rhonchi. GASTROINTESTINAL: Abdomen soft, non-tender, nondistended. Normal, active bowel sounds MUSCULOSKELETAL: Extremities without clubbing, cyanosis, or edema. NEURO: Alert & Oriented x4 to person, place, time, situation. Moves all ext x4 Procedures PEG tube insertion. Medications and IVs Current Medications Propofol 100 ml @ As Directed STK-MED ONCE .ROUTE Last administered on 12:43; Start 06/22/17 at 12:25; Stop 06/22/17 at 12:26; Status DC IV Flush (NS Flush) 2 ml UNSCH PRN IV FLUSH FLUSH AFTER USING IV ACCESS; Start 06/22/17 at 12:30; Stop 06/22/17 at 15:32; Status DC Sodium Chloride 1,000 ml @ 1,000 mls/hr Q1H IV Last administered on 06/22/17 12:43; Start 06/22/17 at 12:25; Stop 06/22/17 at 13:24; Status DC Etomidate (Amidate Inj) 20 mg ONCE ONCE IVP Last administered on 06/22/17 12: 44; Start 06/22/17 at 12:30; Stop 06/22/17 at 12:34; Status DC Albuterol/ Ipratropium (Duoneb Neb) 1 ampule Q15M INH Last administered on 06/22 13:16; Start 06/22/17 at 12:30; Stop 06/22/17 at 13:01; Status DC Sodium Chloride (NS Flush) 2 ml UNSCH PRN IVF FLUSH AFTER USING IV ACCESS Last administered on 06/22/17 12:44; Start 06/22/17 at 12:30; Stop 06/22/17 at 15:32 ; Status DC Sodium Chloride 1,000 ml @ 999 mls/hr Q1H1M IV Last administered on 06/22/17 12:56; Start 06/22/17 at 12:45; Stop 06/22/17 at 13:45; Status DC Sodium Chloride 1,000 ml @ 999 mls/hr Q1H1M IV Last administered on 06/22/17 12:56; Start 06/22/17 at 12:45; Stop 06/22/17 at 13:45; Status DC Methylprednisolone Sodium Succinate (SoluMEDROL INJ) 125 mg ONCE ONCE IV PUSH Last administered on 06/22/17 12:56; Start 06/22/17 at 12:45; Stop 06/22/17 at 12:46; Status DC Hydromorphone HCl (Dilaudid Pf Inj) 0.5 mg ONCE ONCE IV PUSH Last administered on 06/22/17 12:56; Start 06/22/17 at 12:45; Stop 06/22/17 at 12:46 ; Status DC Succinylcholine Chloride (Quelicin Inj) 200 mg STK-MED ONCE .ROUTE Last administered on 06/22/17 12:20; Start 06/22/17 at 13:15; Stop 06/22/17 at 13:16 ; Status DC Vancomycin HCl 850 mg/Sodium Chloride 258.5 ml @ 250 mls/hr ONCE ONCE IV Last administered on 06/22/17 16:06; Start 06/22/17 at 15:15; Stop 06/22/17 at 16:17; Status DC Cefepime HCl 1000 mg/Sodium Chloride 100 ml @ 200 mls/hr ONCE ONCE IV Last administered on 06/22/17 15:08; Start 06/22/17 at 15:15; Stop 06/22/17 at 15:46 ; Status DC Sodium Chloride 1,000 ml @ 84 mls/hr [id number] IV Last administered on 03:06; Start 06/22/17 at 15:09; Stop 06/23/17 at 07:25; Status DC Sodium Chloride (NS Flush) 2 ml UNSCH PRN IV FLUSH FLUSH AFTER USING IV ACCESS Last administered on 07/11/17 06:10; Start 06/22/17 at 15:15 Sodium Chloride (NS Flush) 2 ml BID IV FLUSH Last administered on 08/03/17 09 :00; Start 06/22/17 at 21:00 Acetaminophen (Tylenol) 650 mg Q6H PRN PO PAIN 1-10 AND/OR FEVER >101F; Start 06/22/17 at 15:15; Stop 06/23/17 at 07:23; Status DC Famotidine (Pepcid Inj) 10 mg Q12HR IV PUSH Last administered on 06/26/17 20:36 ; Start 06/22/17 at 21:00; Stop 06/26/17 at 22:58; Status DC Lorazepam (Ativan Inj) 1 mg Q1H PRN IV Agitation/Sedation Last administered on 06/30/17 07:50; Start 06/22/17 at 15:15; Stop 06/30/17 at 12:29; Status DC Artificial Tears (Tears Naturale Opth Soln) 1 drop TID EACH EYE Last administered on 08/03/17 09:00; Start 06/22/17 at 18:00 Ondansetron HCl (Zofran Inj) 4 mg Q6H PRN IV NAUSEA OR VOMITING; Start at 15:15 Albuterol/ Ipratropium (Duoneb Neb) 1 ampule Q6HR NEB INH Last administered on 06/26/17 15:29; Start 06/22/17 at 16:00; Stop 06/26/17 at 15:59; Status DC Albuterol Sulfate (Albuterol Neb) 2.5 mg Q2HR NEB PRN INH SOB/WHEEZING Last administered on 07/09/17 11:13; Start 06/22/17 at 15:15; Stop 07/09/17 at 14:25 ; Status DC Heparin Sodium (Porcine) (Heparin Inj) 5,000 units Q12H SQ Last administered on 06/29/17 14:38; Start 06/22/17 at 15:15; Status Future Hold Miscellaneous Information 1 [id number] Last administered on 06/22/17 15:15; Start 06/22/17 at 15:15 Chlorhexidine Gluconate (Chlorhexidine 2% Cloth) 3 pack Taper DAILY@04 TOP Last administered on 07/19/17 04:00; Start 06/23/17 at 04:00; Stop 06/19/18 at 03:59 Chlorhexidine Gluconate (Chlorhexidine 2% Cloth) 3 pack UNSCH PRN TOP HYGIENIC CARE; Start 06/22/17 at 15:15 Senna/Docusate Sodium (Indy-Colace) 1 tab BID PO Last administered on 06/29/17 22:42; Start 06/22/17 at 21:00; Stop 06/30/17 at 11:09; Status DC Magnesium Hydroxide (Milk Of Magnesia Liq) 30 ml Q12H PRN PO MILD - MODERATE CONSTIPATION; Start 06/22/17 at 15:15 Sennosides (Senokot) 17.2 mg Q12H PRN PO MODERATE - SEVERE CONSTIPATION; Start 06/22/17 at 15:15 Bisacodyl (Dulcolax Supp) 10 mg DAILY PRN RECTAL SEVERE CONSITIPATION Last administered on 07/24/17 08:28; Start 06/22/17 at 15:15 Lactulose (Lactulose Liq) 30 ml DAILY PRN PO SEVERE CONSITIPATION; Start at 15:15 Chlorhexidine Gluconate (Peridex 0.12% Liq) 15 ml BID@08,20 MT Last administered on 08/03/17 08:00; Start 06/22/17 at 20:00 Propofol 100 ml @ 1.65 mls/hr TITRATE PRN IV SEDATION; Start 06/22/17 at 15:15 ; Stop 06/23/17 at 17:57; Status DC Fentanyl Citrate 250 ml @ 5 mls/hr TITRATE PRN IV SEDATION; Start 06/22/17 at 15:15; Stop 06/27/17 at 13:02; Status DC IV Flush (NS Flush) 2 ml BID IV FLUSH ; Start 06/22/17 at 21:00; Status UNV IV Flush (NS Flush) 2 ml UNSCH PRN IV FLUSH FLUSH AFTER USING IV ACCESS; Start 06/22/17 at 15:45; Status UNV Labetalol HCl (Trandate Inj) 10 mg Q2H PRN IV For SBP > 220 or DBP > 120; Start 06/22/17 at 15:45 Nicardipine HCl 25 mg/Sodium Chloride 260 ml @ 52 mls/hr TITRATE PRN IV Maintain BP goal; Start 06/22/17 at 16:00; Status Future Hold Aspirin (Aspirin Chew) 81 mg DAILY PO Last administered on 08/03/17 09:05; Start 06/23/17 at 09:00; Status Future hold Insulin Aspart (NovoLOG SUPPLEMENTAL SCALE) 1 ACHS SQ Last administered on 06/22 16:54; Start 06/22/17 at 16:00; Stop 06/23/17 at 07:23; Status DC Dextrose (D50w (Vial) Inj) 50 ml UNSCH PRN IV PUSH HYPOGLYCEMIA-SEE COMMENTS; Start 06/22/17 at 15:45 Glucagon (Glucagon Inj) 1 mg UNSCH PRN OTHER HYPOGLYCEMIA-SEE COMMENTS; Start 06/22/17 at 15:45 Piperacillin Sod/ Tazobactam Sod 50 ml @ 100 mls/hr Q6H IV Last administered on 06/29/17 05:17; Start 06/22/17 at 17:00; Stop 06/29/17 at 08:00; Status DC Lactulose (Lactulose Liq) 30 ml QID PO Last administered on 06/29/17 22:42; Start 06/22/17 at 18:00; Stop 07/01/17 at 15:26; Status DC Propofol 100 ml @ 1.65 mls/hr TITRATE PRN IV Ordered RASS Last administered on 06/28/17 05:59; Start 06/22/17 at 17:15; Stop 06/29/17 at 07:21; Status DC Calcium Gluconate 2 gm/Sodium Chloride 120 ml @ 120 mls/hr ONCE ONCE IV Last administered on 06/23/17 05:32; Start 06/23/17 at 06:00; Stop 06/23/17 at 06:59 ; Status DC Insulin Aspart (NovoLOG SUPPLEMENTAL SCALE) 1 Q6HR SQ Last administered on 06:16; Start 06/23/17 at 12:00; Stop 07/05/17 at 16:27; Status DC Sodium Chloride 1,000 ml @ 999 mls/hr BOLUS ONCE IV Last administered on 06/23 08:49; Start 06/23/17 at 08:00; Stop 06/23/17 at 09:00; Status DC Sodium Bicarbonate 100 meq/Sterile Water 950 ml @ 110 mls/hr Q8H39M IV Last administered on 06/24/17 02:48; Start 06/23/17 at 07:30; Stop 06/24/17 at 09:10; Status DC Potassium Chloride (KCl Powder) 40 meq ONCE ONCE PO Last administered on 06:45; Start 06/24/17 at 06:45; Stop 06/24/17 at 06:46; Status DC Sodium Phosphate 15 mmol/Sodium Chloride 155 ml @ 38.75 mls/ hr ONCE ONCE IV Last administered on 06/24/17 08:27; Start 06/24/17 at 08:00; Stop 06/24/17 at 11: 59; Status DC Water (Free Water) VOLUME: 200 ML Q4HR G-TUBE Last administered on 07/02/17 16: 00; Start 06/24/17 at 12:00; Stop 07/05/17 at 10:15; Status DC Sodium Chloride 1,000 ml @ 999 mls/hr BOLUS ONCE IV Last administered on 10:41; Start 06/24/17 at 09:15; Stop 06/24/17 at 10:15; Status DC Metoprolol Tartrate (Lopressor) 12.5 mg Q12HR PO Last administered on 06/27/17 20:02; Start 06/24/17 at 21:00; Stop 06/29/17 at 07:55; Status DC Miscellaneous (Pill Splitter) 1 ea UNSCH PRN OTHER SEE LABEL COMMENTS; Start at 15:00 Pharmacy Profile Note 0 ml @ 0 mls/hr UNSCH OTHER ; Start 06/24/17 at 22:30; Stop 06/27/17 at 13:12; Status DC Vancomycin HCl 1000 mg/Sodium Chloride 250 ml @ 250 mls/hr ONCE ONCE IV Last administered on 06/24/17 22:46; Start 06/24/17 at 22:30; Stop 06/24/17 at 23:29; Status DC Potassium Phosphate 30 mmol/ Sodium Chloride 260 ml @ 43.333 mls/ hr ONCE ONCE IV Last administered on 06/25/17 11:00; Start 06/25/17 at 11:00; Stop at 16:59; Status DC Vancomycin HCl 1000 mg/Sodium Chloride 250 ml @ 250 mls/hr Q24H IV Last administered on 06/27/17 06:11; Start 06/26/17 at 02:00; Stop 06/27/17 at 09:08; Status DC Miscellaneous Information SPECIFIC LAB TO BE DRAWN: VANCO TROUGH DATE... ONCE ONCE .XX ; Start 06/27/17 at 01:45; Stop 06/27/17 at 01:46; Status DC Lisinopril (Prinivil) 5 mg DAILY OG-TUBE Last administered on 06/28/17 08:00; Start 06/27/17 at 09:00; Stop 06/28/17 at 08:48; Status DC Potassium Chloride (KCl Powder) 30 meq ONCE ONCE NG Last administered on 14:00; Start 06/26/17 at 14:00; Stop 06/26/17 at 14:01; Status DC Pantoprazole Sodium (Protonix Inj) 40 mg Q12H IV PUSH Last administered on 10:37; Start 06/26/17 at 23:00; Stop 06/27/17 at 13:02; Status DC Vancomycin HCl 1000 mg/Sodium Chloride 250 ml @ 250 mls/hr Q18H IV ; Start 06/28 at 00:00; Stop 06/28/17 at 00:00; Status DC Miscellaneous Information SPECIFIC LAB TO BE JAYLEN... ONCE ONCE .XX ; Start at 11:45; Stop 06/29/17 at 11:46; Status Cancel Levofloxacin/ Dextrose 150 ml @ 100 mls/hr Q24H IV Last administered on 14:04; Start 06/27/17 at 14:00; Stop 07/15/17 at 15:55; Status DC Pantoprazole Sodium 80 mg/ Sodium Chloride 100 ml @ 10 mls/hr Q10H IV Last administered on 06/28/17 22:58; Start 06/27/17 at 16:00; Stop 06/29/17 at 07:21; Status DC Potassium Chloride 100 ml @ 50 mls/hr Q2H PRN IV For Potassium 2.8 - 3.2 mEq/L ; Start 06/28/17 at 03:30; Stop 06/30/17 at 12:31; Status DC Potassium Chloride 100 ml @ 50 mls/hr Q2H PRN IV For Potassium 2.8 - 3.2 mEq/L ; Start 06/28/17 at 03:30; Stop 06/30/17 at 12:31; Status DC Potassium Bicarb/ Potassium Chloride (K-Lyte Cl Eff) 50 meq UNSCH PRN PO For Potassium 3.3 - 3.5 mEq/L; Start 06/28/17 at 03:30; Stop 06/30/17 at 12:31; Status DC Potassium Chloride 100 ml @ 25 mls/hr UNSCH PRN IV For Potassium 3.3 - 3.5 mEq /L; Start 06/28/17 at 03:30; Stop 06/30/17 at 12:31; Status DC Potassium Chloride 100 ml @ 50 mls/hr Q2H PRN IV For Potassium 3.3 - 3.5 mEq/ L Last administered on 06/28/17 07:10; Start 06/28/17 at 03:30; Stop 06/30/17 at 12:31; Status DC Magnesium Sulfate 4 gm/Sodium Chloride 100 ml @ 50 mls/hr UNSCH PRN IV For Magnesium 0.9 - 1.1 mg/dL; Start 06/28/17 at 03:30; Stop 06/30/17 at 12:31; Status DC Magnesium Oxide (Mag-Ox) 800 mg UNSCH PRN PO For Magnesium 1.2 - 1.6 mg/dL; Start 06/28/17 at 03:30; Stop 06/30/17 at 12:31; Status DC Magnesium Sulfate 2 gm/Sodium Chloride 100 ml @ 50 mls/hr UNSCH PRN IV For Magnesium 1.2 - 1.6 mg/dL; Start 06/28/17 at 03:30; Stop 06/30/17 at 12:31; Status DC Potassium Phosphate (K-Phos) 2,000 mg Q4H PRN PO For Phosphorus < 2.5 mg/dL; Start 06/28/17 at 03:30; Stop 06/30/17 at 12:31; Status DC Sodium Phosphate 30 mmol/Sodium Chloride 250 ml @ 42 mls/hr UNSCH PRN IV For Phosphorus < 2.5 mg/dL; Start 06/28/17 at 03:30; Stop 06/30/17 at 12:31; Status DC Potassium Phosphate (K-Phos) 2,000 mg UNSCH PRN PO/TUBE SEE LABEL COMMENTS; Start 06/28/17 at 03:30; Stop 06/30/17 at 12:31; Status DC Potassium Phosphate 30 mmol/ Sodium Chloride 260 ml @ 42 mls/hr UNSCH PRN IV SEE LABEL COMMENTS; Start 06/28/17 at 03:30; Stop 06/30/17 at 12:31; Status DC Lisinopril (Prinivil) 10 mg DAILY OG-TUBE ; Start 06/28/17 at 10:00; Stop at 13:47; Status DC Potassium Chloride/Sodium Chloride 1,000 ml @ 84 mls/hr [id number] IV Last administered on 06/28/17 13:22; Start 06/28/17 at 13:00; Stop 06/28/17 at 21:10; Status DC Aspirin (Aspirin Supp) 300 mg DAILY RECTAL Last administered on 06/29/17 09:20 ; Start 06/29/17 at 09:00; Stop 07/01/17 at 15:26; Status DC Dexamethasone Sodium Phosphate (Decadron Inj) 6 mg NOW ONCE IV Last administered on 06/28/17 21:55; Start 06/28/17 at 21:15; Stop 06/28/17 at 21:16; Status DC Dexamethasone Sodium Phosphate (Decadron Inj) 6 mg Q6H IV Last administered on 06/30/17 02:49; Start 06/29/17 at 03:00; Stop 06/30/17 at 03:01; Status DC Pantoprazole Sodium (Protonix Inj) 40 mg Q12H IV PUSH Last administered on 07/17 08:36; Start 06/29/17 at 08:00; Stop 07/17/17 at 09:44; Status DC Metoprolol Tartrate (Lopressor) 25 mg Q8HR PO Last administered on 08/02/17 08:38; Start 06/29/17 at 14:00 Hydralazine HCl (Apresoline Inj) 20 mg Q4H PRN IV PUSH SBP >160; Start 06/29/17 at 08:00; Stop 06/30/17 at 20:50; Status DC Haloperidol Lactate (Haldol Inj) 5 mg Q6H PRN IM AGITATION Last administered on 07/01/17 21:23; Start 06/30/17 at 12:30 Dextrose/Sodium Chloride 1,000 ml @ 100 mls/hr Q10H IV Last administered on 09:00; Start 06/30/17 at 13:00; Stop 07/01/17 at 15:26; Status DC Albuterol/ Ipratropium (Duoneb Neb) 1 ampule Q4HR NEB NEB Last administered on 07/04/17 08:31; Start 06/30/17 at 12:30; Stop 07/04/17 at 12:29; Status DC Morphine Sulfate (Morphine Inj) 2 mg Q3H PRN IV PUSH PAIN GREATER THAN 5 Last administered on 07/17/17 09:04; Start 06/30/17 at 12:30; Stop 07/17/17 at 09:44 ; Status DC Enalaprilat (Vasotec Inj) 2.5 mg Q6H PRN IV PUSH SBP > 160 Last administered on 07/14/17 12:10; Start 06/30/17 at 21:00 Lactulose (Lactulose Liq) 30 ml BID PO Last administered on 07/18/17 09:52; Start 07/01/17 at 21:00; Stop 07/18/17 at 11:37; Status DC Potassium Chloride 100 ml @ 50 mls/hr Q2H IV Last administered on 07/02/17 21: 31; Start 07/02/17 at 17:30; Stop 07/02/17 at 21:29; Status DC Magnesium Oxide (Mag-Ox) 400 mg ONCE ONCE PO Last administered on 07/02/17 16: 48; Start 07/02/17 at 16:15; Stop 07/02/17 at 16:16; Status DC Rifaximin (Xifaxan) 550 mg BID PO Last administered on 08/03/17 09:04; Start 07/03/17 at 09:00 Potassium Bicarb/ Potassium Chloride (K-Lyte Cl Eff) 75 meq ONCE ONCE PO ; Start 07/03/17 at 14:15; Stop 07/03/17 at 14:15; Status DC Potassium Chloride 100 ml @ 50 mls/hr Q2H IV Last administered on 07/03/17 23 :12; Start 07/03/17 at 15:00; Stop 07/03/17 at 18:59; Status DC Potassium Bicarbonate (Effer-K Eff) 75 meq ONCE ONCE PO Last administered on 14:52; Start 07/03/17 at 15:00; Stop 07/03/17 at 15:01; Status DC Potassium Bicarbonate (Effer-K Eff) 25 meq ONCE ONCE PO Last administered on 12:00; Start 07/05/17 at 10:15; Stop 07/05/17 at 10:17; Status DC Lisinopril (Prinivil) 10 mg DAILY PO Last administered on 08/03/17 09:05; Start 07/07/17 at 09:00 Lisinopril (Prinivil) 10 mg ONCE ONCE PO Last administered on 07/06/17 14:00 ; Start 07/06/17 at 14:00; Stop 07/06/17 at 14:01; Status DC Furosemide (Lasix Inj) 40 mg ONCE ONCE IV PUSH Last administered on 07/08/17 03:30; Start 07/08/17 at 04:30; Stop 07/08/17 at 04:31; Status DC Cefazolin Sodium (Ancef Inj) 1,000 mg ONCE ONCE IV Last administered on 13:04; Start 07/08/17 at 13:03; Stop 07/08/17 at 13:04; Status DC Propofol (Diprivan 200 Mg/20 ml Inj) 120 mg STK-MED ONCE IV ; Start 07/08/17 at 11:53; Stop 07/08/17 at 13:05; Status DC Albuterol/ Ipratropium (Duoneb Neb) 1 ampule ONCE ONCE NEB ; Start 07/09/17 at 14:30; Stop 07/09/17 at 14:31; Status Cancel Albuterol/ Ipratropium (Duoneb Neb) 1 ampule Q2HR NEB PRN NEB SOB/WHEEZING Last administered on 08/02/17 16:08; Start 07/09/17 at 14:00 Albuterol/ Ipratropium (Duoneb Neb) 1 ampule Q6HR WHILE AWAKE NEB NEB Last administered on 07/13/17 08:44; Start 07/09/17 at 14:00; Stop 07/13/17 at 13:59 ; Status DC Amoxicillin/ Clavulanate Potassium (Augmentin) 875 mg Q12HR PO Last administered on 07/16/17 08:19; Start 07/09/17 at 14:00; Stop 07/16/17 at 13:59 ; Status DC Lactobacillus Acidophilus (Lactinex Pkt) 1 gm BID PO Last administered on 08/03 09:04; Start 07/09/17 at 21:00 Methylprednisolone Sodium Succinate (SoluMEDROL INJ) 40 mg ONCE ONCE IV PUSH Last administered on 07/09/17 17:06; Start 07/09/17 at 14:00; Stop 07/09/17 at 14:24; Status DC Potassium Chloride (KCl Powder) 60 meq ONCE ONCE PO Last administered on 13:49; Start 07/10/17 at 10:30; Stop 07/10/17 at 10:31; Status DC Potassium Phosphate (K-Phos) 500 mg ONCE ONCE PO Last administered on 12:29; Start 07/10/17 at 10:30; Stop 07/10/17 at 10:31; Status DC Magnesium Oxide (Mag-Ox) 400 mg ONCE ONCE PO Last administered on 07/10/17 12 :29; Start 07/10/17 at 10:30; Stop 07/10/17 at 10:31; Status DC Potassium Phosphate (K-Phos) 500 mg ONCE ONCE PO Last administered on 12:44; Start 07/11/17 at 11:15; Stop 07/11/17 at 11:32; Status DC Potassium Bicarb/ Potassium Chloride (K-Lyte Cl Eff) 25 meq ONCE ONCE PO Last administered on 07/13/17 14:47; Start 07/13/17 at 12:00; Stop 07/13/17 at 12:01; Status DC Hydralazine HCl (Apresoline) 10 mg Q6HR PRN PO SBP>160, DBP>90; Start 07/14/17 at 15:45 Pantoprazole Sodium (Protonix) 40 mg Q12HR PO Last administered on 08/03/17 09:05; Start 07/17/17 at 21:00 Oxycodone/ Acetaminophen (Percocet 7.5-325 Mg) 1 tab Q4H PRN PO pain>5 Last administered on 08/03/17 10:34; Start 07/17/17 at 09:45 Lactulose (Lactulose Liq) 30 ml DAILY PO Last administered on 08/03/17 09:04 ; Start 07/19/17 at 09:00 Temazepam (Restoril) 15 mg HS PRN PO INSOMNIA Last administered on 08/02/17 23:54; Start 07/18/17 at 14:00 Pneumococcal Polyvalent Vaccine (Pneumovax-23 Inj) 25 mcg ONCE ONCE IM ; Start 07/20/17 at 10:00; Stop 07/20/17 at 10:01; Status Cancel Influenza Virus Vaccine (Flu (Quadrivalent) Vaccine Inj) 0.5 ml ONCE ONCE IM ; Start 07/20/17 at 10:00; Stop 07/20/17 at 10:01; Status Cancel Influenza Virus Vaccine (Flu (Quadrivalent) Vaccine Inj) 0.5 ml ONCE ONCE IM Last administered on 9/26/17at 11:00; Start 07/19/17 at 09:00; Stop 07/19/17 at 09:01; Status DC Pneumococcal Polyvalent Vaccine (Pneumovax-23 Inj) 25 mcg ONCE ONCE IM ; Start 07/18/17 at 19:15; Stop 07/18/17 at 19:15; Status DC Pneumococcal Polyvalent Vaccine (Pneumovax-23 Inj) 25 mcg ONCE ONCE IM Last administered on 07/19/17t 09:23; Start 07/19/17 at 09:00; Stop 07/19/17 at 09:01 ; Status DC IV Flush (NS Flush) 5 ml UNSCH PRN IV FLUSH FLUSH AFTER USING IV ACCESS; Start 07/25/17 at 11:15 Zolpidem Tartrate (Ambien) 5 mg HS PRN PO INSOMNIA; Start 08/02/17 at 11:15 A/P Problem List: (1) Thrombocytopenia ICD Code: D69.6 - Thrombocytopenia, unspecified (2) Polycythemia ICD Code: D75.1 - Secondary polycythemia (3) CVA (cerebral vascular accident) ICD Code: I63.9 - Cerebral infarction, unspecified (4) Stroke ICD Code: I63.9 - Cerebral infarction, unspecified Status: Acute (5) Incontinence ICD Code: R32 - Unspecified urinary incontinence (6) Cystitis ICD Code: N30.90 - Cystitis, unspecified without hematuria Assessment and Plan A/P CVA , with expressive aphasia and right hemiparesis, dysphagia. Continue with aspirin LDL 36 therefore statin is not indicated PT/OT/speech therapy Appreciate input from neurology Continue current treatment Possible aspiration pneumonia-treated. s/p Augmentin 07/16/17 Hyperammonemia-resolved Continue lactulose daily Monitor ammonia level accordingly Acute hypoxemic respiratory failure Resolved Continue with DuoNeb when necessary and maintain oxygen saturation above 92% Hypertension Cardiomyopathy 2-D echo revealed LVEF of 45%. Continue beta marilou. 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 HIDA scan 06/28 with distended gallbladder-no evidence of acute cholecystitis s/p PEG placement History of incontinence Resolved Acute kidney injury Resolved Thrombocytopenia resolved. insomnia; ambien as needed. Prophylaxis - GI - PO Protonix - DVT - SCD/heparin subcutaneous on hold due to GI bleed. Discharge Planning awaiting placement- pending SSI. Problem Qualifiers (1) CVA (cerebral vascular accident): Qualified Codes: I63.9 - Cerebral infarction, unspecified (2) Stroke: Qualified Codes: I63.9 - Cerebral infarction, unspecified (3) Incontinence: Qualified Codes: R32 - Unspecified urinary incontinence Madhu Villaseñor MD Aug 03, 2017 10:58
[2017-08-03] MEDS: RESP: ALBUTEROL 2.5 MG/IPRATROPIUM 0.5 MG NEB (PRN) NEB ×2 (12:55)
[2017-08-03] MEDS: TEMAZEPAM 15 MG CAP PO PRN ×2 (22:48)
[2017-08-04] VITALS (9 sets, daily range): BP systolic 96–115; BP diastolic 55–72; PULSE 79–109; RESP 18–20; TEMP 97.3–98.4; O2SAT 3–96
[2017-08-04] MEDS: CHLORHEXIDINE GLUCONATE 2 % 1 PACK (2 CLOTHS) TOP SCH ×2 (02:23)
[2017-08-04] MEDS: oxyCODONE/ACETAMINOPHEN 7.5 MG/325 MG TAB PO PRN ×10 (03:42→21:11)
[2017-08-04] MEDS: METOPROLOL TARTRATE 25 MG TAB PO SCH ×6 (06:00→21:47)
--- NOTE | 2017-08-04 08:11 | HHI.PR ---
Subjective Remarks In bed, appears in nad. No compalints. No n/v/d/c. Sattign well on 2L NC. Cough at times. Objective Vitals Vital Signs Date Time Temp Pulse Resp B/P (MAP) Pulse Ox O2 Delivery O2 Flow Rate FiO2 08/04/17 06:02 107/63 (78) 08/04/17 04:00 98.1 99 20 107/67 (80) 92 08/04/17 00:00 97.3 79 20 100/64 (76) 96 08/03/17 23:15 Nasal Cannula 2.00 08/03/17 20:00 98.2 90 20 97/54 (68) 98 08/03/17 16:00 98.4 98 18 103/64 (77) 98 08/03/17 12:56 97 Nasal Cannula 2.50 08/03/17 12:00 98.3 106 16 112/71 (85) 97 I/O 08/03/17 08/03/17 08/03/17 08/04/17 08/04/17 08/04/17 07:00 15:00 23:00 07:00 15:00 23:00 Intake Total 640 ml 600 ml 1178 ml Balance 640 ml 600 ml 1178 ml Intake Oral 600 ml Tube Feeding 540 ml 1178 ml Tube Irrigant 100 ml # Voids 1 5 1 # Bowel Movements 2 Result Diagram: 08/01/1771308/01/17713 Objective Remarks GENERAL: Chronically ill-appearing female, cachectic, appearing older than stated age, doesn't appear in acute distress. CARDIOVASCULAR: Normal rate and regular rhythm without murmurs, gallops, or rubs. RESPIRATORY: Less SOB and cough, improving. Coarse breath sounds bilaterally. Mostly upper airway transmission. Barrel chested. GASTROINTESTINAL: PEG tube in place, dressing c/d/di. Abdomen soft, non-tender, non-distended. Normal active bowel sounds MUSCULOSKELETAL: Very thin extremities. Extremities without cyanosis, or edema. NEURO: Alert to self. Aphasic. However able to nod to questions/ writing needs. Procedures PEG tube insertion. A/P Problem List: (1) Thrombocytopenia ICD Code: D69.6 - Thrombocytopenia, unspecified (2) Polycythemia ICD Code: D75.1 - Secondary polycythemia (3) CVA (cerebral vascular accident) ICD Code: I63.9 - Cerebral infarction, unspecified (4) Stroke ICD Code: I63.9 - Cerebral infarction, unspecified Status: Acute (5) Incontinence ICD Code: R32 - Unspecified urinary incontinence (6) Cystitis ICD Code: N30.90 - Cystitis, unspecified without hematuria Assessment and Plan This is a 62-year-old female admitted in respiratory failure. Patient was not able to get out of the chair and was intubated by EMS on the scene. Patient was found to have a CVA. She had an ICU course. She is now extubated and transferred to the hospitalist service. Patient also has GI bleeding. She is not able to pass a swallow evaluation. She needs a feeding tube per GI. Respiratory status is currently stable. 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 Chronic benzodiazepine use THC use Hyperammonemia Dysphagia s/p stoke . Advance diet per ST. Plan for modified barium swallow. Patient pulled NGT out CT head 06/22 revealed 2.5 cm left insular cortex CVA. Carotid Dopplers negative. MRI brain 06/24 revealed left sylvian fissure CVA. MRA brain 06/24 negative for occlusive disease Resume lactulose. 2-D echocardiogram revealed EF 40-45%. Right atrial and right ventricular dilatation. Hemoglobin A1c 6.5/lipids revealed low HDL 38. Low-cholesterol 95. Hold per rectum aspirin given rectal bleeding. Transition to ngt Neurology Dr. Barr PEG feeding tube placed 07/08/17 start feedings per GI /dietary recommendations However noted with respiratory distress 07/09/17 poss aspiration PNA, CXR reviewed , ABG, cbc, bmp reviewed no leukocytosis, no signs of systemic infection. Added augmentin, duonebs, IV solumedrol 40 mg once , IS, acapella. Improving. Acute hypoxemic respiratory failure- resolving however now aspirated and requiring more O2. Pneumonia with Stenotrophomonas Mild post extubation stridor Extubated 06/28/17 tolerated well. Mild post extubation stridor appears to have resolved. Received 5 doses of Decadron Bronchodilator therapy with albuterol/ipratropium aerosols every 6 hours with albuterol nebs every 2 hours. Chest x-ray stable bibasilar airspace disease Levaquin for stenotrophomonas 07/09 Noted with respiratory distress 07/09/17 poss aspiration PNA, CXR reviewed , ABG, cbc, bmp reviewed no leukocytosis, no signs of systemic infection. Added augmentin, duonebs, IV solumedrol 40 mg once , IS, acapella. Improving. ST and dietary ff for diet recommendations. O2 supplement keep O2 sat > 92% Hypertension Cardiomyopathy: - Patient evaluated by cardiology. 2-D echo revealed LVEF of 45%. Cardiomyopathy. Continue beta marilou. PRN antihypertensives. Conservative measures per cardiology given the comorbidities. - IV hydralazine for SBP more than 160 Upper GI bleed Elevated transaminases Elevated ammonia Hypoalbuminemia Hepatitis C antibody positive Rectal bleeding: Protonix gtt changed to 40 mg IV q12. Patient repeatedly failed swallow evaluation. Hep C genotype/viral load pending HIDA scan 06/28 with distended gallbladder-no evidence of acute cholecystitis GI following- s/p PEG placement DC tray thickened liquids as patient aspirated and modified barium swallow abn. Stable h/h Follow H&H Hypokalemia. Replace with potassium by PEG. Check Mag and phos as well,. monitor for refeeding sdr. Hypophosphatemia. Refeeding sdr. Monitor and replace K, mag and Phos as indicated. Hypernatremia/Hyperchloremia: Improving. Monitor. Might start free water if necessary History of incontinence Persaud catheter placed for accurate I's and O's in a critically ill patient. Not stable enough yet to discontinue it. Acute kidney injury Possible secondary to dehydration rhabdo. Continue hydration with D5 quarter normal saline. Urine electrolytes/eosinophils negative Renal ultrasound revealed dilated bilateral calyces. Possibly will need urology evaluation when stabilizes Accurate I's and O's. Thrombocytopenia Monitor CBC daily. Follow trends Stenotrophomonas pneumonia Levaquin 750 mg IV every 24 hours Piperacillin/tazobactam day 7-DC. DCd Vancomycin day #3 Pertinent cultures 06/25 - sputum - stenotrophomonas 06/25 - blood cultures 2 -no growth 06/22 - UA - gram positive mixed organisms. UA / negative 06/22 - blood cultures 2 - no growth Influenza negative Unable to give acetaminophen secondary to elevated transaminases did unable to give NSAIDs secondary to elevated creatinine PT/OT evaluate and treat Prophylaxis - GI - IV Protonix - DVT - SCD/heparin subcutaneous on hold due to GI bleed. Discussed with the patient, nurse. Case management ff regarding DC plan. SSI pending. No [facility] beds available. Difficult discharge. CM ff Problem Qualifiers (1) CVA (cerebral vascular accident): Qualified Codes: I63.9 - Cerebral infarction, unspecified (2) Stroke: Qualified Codes: I63.9 - Cerebral infarction, unspecified (3) Incontinence: Qualified Codes: R32 - Unspecified urinary incontinence Iza Browning MD Aug 04, 2017 08:11
[2017-08-04] MEDS: RIFAXIMIN 550 MG TAB PO SCH ×4 (08:18→21:11)
[2017-08-04] MEDS: PANTOPRAZOLE SOD 40 MG DELAYED RELEASE TAB PO SCH ×4 (08:18→21:11)
[2017-08-04] MEDS: LISINOPRIL 10 MG TAB PO SCH ×2 (08:18)
[2017-08-04] MEDS: LACTULOSE SYRUP 20 GM/30 ML CUP PO SCH ×2 (08:19)
[2017-08-04] MEDS: LACTOBACILLUS ACIDOPHILUS 1 GM PACKET PO SCH ×4 (08:19→21:47)
[2017-08-04] MEDS: CHLORHEXIDINE 0.12% (ORAL KIT) 15 ML CUP MT SCH ×4 (08:19→20:00)
[2017-08-04] MEDS: ASPIRIN 81 MG CHEW TAB PO SCH ×2 (08:19)
[2017-08-04] MEDS: ARTIFICIAL TEARS OPTH SOLN 15 ML BTL EACH EYE SCH ×6 (08:19→17:40)
[2017-08-04] MEDS: SODIUM CHLORIDE 0.9% FLUSH 10 ML FLUSH IV FLUSH SCH ×4 (08:19→21:10)
[2017-08-04] MEDS: RESP: ALBUTEROL 2.5 MG/IPRATROPIUM 0.5 MG NEB (PRN) NEB ×4 (15:46→20:14)
[2017-08-05] VITALS (8 sets, daily range): BP systolic 93–117; BP diastolic 53–74; PULSE 85–104; RESP 18–20; TEMP 97.7–99.4; O2SAT 90–98
[2017-08-05] MEDS: CHLORHEXIDINE GLUCONATE 2 % 1 PACK (2 CLOTHS) TOP SCH ×2 (01:20)
[2017-08-05] MEDS: oxyCODONE/ACETAMINOPHEN 7.5 MG/325 MG TAB PO PRN ×12 (02:01→22:21)
[2017-08-05] MEDS: METOPROLOL TARTRATE 25 MG TAB PO SCH ×6 (05:41→21:44)
[2017-08-05] MEDS: CHLORHEXIDINE 0.12% (ORAL KIT) 15 ML CUP MT SCH ×4 (08:00→20:00)
[2017-08-05] MEDS: SODIUM CHLORIDE 0.9% FLUSH 10 ML FLUSH IV FLUSH SCH ×4 (08:47→21:45)
[2017-08-05] MEDS: ASPIRIN 81 MG CHEW TAB PO SCH ×2 (08:48)
[2017-08-05] MEDS: PANTOPRAZOLE SOD 40 MG DELAYED RELEASE TAB PO SCH ×4 (08:48→21:44)
[2017-08-05] MEDS: RIFAXIMIN 550 MG TAB PO SCH ×4 (08:48→21:44)
[2017-08-05] MEDS: LACTULOSE SYRUP 20 GM/30 ML CUP PO SCH ×2 (08:48)
[2017-08-05] MEDS: LISINOPRIL 10 MG TAB PO SCH ×2 (08:48)
[2017-08-05] MEDS: LACTOBACILLUS ACIDOPHILUS 1 GM PACKET PO SCH ×4 (08:49→21:00)
[2017-08-05] MEDS: ARTIFICIAL TEARS OPTH SOLN 15 ML BTL EACH EYE SCH ×6 (08:49→17:59)
--- NOTE | 2017-08-05 11:09 | HHI.PR ---
Subjective Remarks Very pleasant in the chair, with speech difficulties however improving. No new motor or sensory deficit. No fever or chills. No n/v/d/c. SOB at baseline. No wheezing. No cough. Objective Vitals Vital Signs Date Time Temp Pulse Resp B/P (MAP) Pulse Ox O2 Delivery O2 Flow Rate FiO2 08/05/17 08:00 98 Nasal Cannula 2.00 08/05/17 08:00 97.7 85 20 95/63 (74) 98 08/05/17 04:00 97.9 104 19 110/74 (86) 95 08/05/17 00:00 98.4 90 18 114/60 (78) 98 08/04/17 23:39 94 Nasal Cannula 2.00 08/04/17 20:16 3 3.00 08/04/17 20:00 97.7 97 19 110/55 (73) 94 08/04/17 16:00 98.4 104 18 101/71 (81) 95 08/04/17 15:47 92 Nasal Cannula 3.00 08/04/17 12:00 97.9 85 19 96/68 (77) 95 I/O 08/04/17 08/04/17 08/04/17 08/05/17 08/05/17 08/05/17 07:00 15:00 23:00 07:00 15:00 23:00 Intake Total 1178 ml 120 ml 650 ml Balance 1178 ml 120 ml 650 ml Tube Feeding 1178 ml 450 ml Tube Irrigant 200 ml Other 120 ml # Voids 1 1 0 # Bowel Movements 0 Result Diagram: 08/01/1771308/01/17713 Imaging Last Impressions Modified Barium Swallow 07/19/17 0000 Signed Impressions: Service Date/Time: Wednesday, July 19, 2017 00:00 - CONCLUSION: Penetration and aspiration as above within liquids, penetration with nectar thick consistency. Jude Braxton MD Chest X-Ray 07/09/17 0000 Signed Impressions: Service Date/Time: Sunday, July 09, 2017 14:04 - CONCLUSION: 1. Stable mild central bibasilar patchy airspace disease. 2. No significant interval change. Gustavo Santoro MD Head CT 07/06/17 0000 Signed Impressions: Service Date/Time: Thursday, July 06, 2017 09:07 - CONCLUSION: 1. 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 2. Mucous retention cyst within left maxillary and right sphenoid sinuses. Juan Pablo Huffman MD Abdomen X-Ray 07/01/17 1044 Signed Impressions: Service Date/Time: Saturday, July 01, 2017 10:45 - CONCLUSION: NG as above. Rudy Meng MD FACR Hepatobiliary Scan Nuclear Medicine 06/28/17 0900 Signed Impressions: Service Date/Time: Wednesday, June 28, 2017 10:17 - CONCLUSION: Nonspecific persistent distention of the gallbladder. No evidence of acute cholecystitis or biliary obstruction. Christopher Gutierrez MD Lung Scan-VQ Nuclear Medicine 06/24/17 0000 Signed Impressions: Service Date/Time: Saturday, June 24, 2017 12:21 - CONCLUSION: 1. Low probability of pulmonary embolism Jose Richard MD Head Magnetic Resonance Angiography 06/24/17 0000 Signed Impressions: Service Date/Time: Saturday, June 24, 2017 13:37 - CONCLUSION: Negative for major branch vessels obstruction in spite of MRI findings. Rudy Meng MD FACR Brain MRI 06/24/17 0000 Signed Impressions: Service Date/Time: Saturday, June 24, 2017 13:37 - CONCLUSION: Findings consistent with acute infarct left sylvian region anteriorly without hemorrhage. Rudy Meng MD FACR Carotid Artery Ultrasound 06/22/17 0000 Signed Impressions: Service Date/Time: Thursday, June 22, 2017 15:56 - CONCLUSION: No evidence of flow-limiting carotid stenosis. Christopher Leonardo MD Abdomen Ultrasound 06/22/17 0000 Signed Impressions: Service Date/Time: Thursday, June 22, 2017 16:30 - CONCLUSION: Distended gallbladder with wall thickening and internal debris. Mild calyceal dilatation involving the kidneys bilaterally Christopher Leonardo MD Objective Remarks GENERAL: Chronically ill-appearing female, cachectic, appearing older than stated age, doesn't appear in acute distress. CARDIOVASCULAR: Normal rate and regular rhythm without murmurs, gallops, or rubs. RESPIRATORY: Less SOB and cough, improving. Coarse breath sounds bilaterally. Mostly upper airway transmission. Barrel chested. GASTROINTESTINAL: PEG tube in place, dressing c/d/di. Abdomen soft, non-tender, non-distended. Normal active bowel sounds MUSCULOSKELETAL: Very thin extremities. Extremities without cyanosis, or edema. NEURO: Alert to self. Aphasic. However able to nod to questions/ writing needs. Procedures PEG tube insertion. A/P Problem List: (1) Thrombocytopenia ICD Code: D69.6 - Thrombocytopenia, unspecified (2) Polycythemia ICD Code: D75.1 - Secondary polycythemia (3) CVA (cerebral vascular accident) ICD Code: I63.9 - Cerebral infarction, unspecified (4) Stroke ICD Code: I63.9 - Cerebral infarction, unspecified Status: Acute (5) Incontinence ICD Code: R32 - Unspecified urinary incontinence (6) Cystitis ICD Code: N30.90 - Cystitis, unspecified without hematuria Assessment and Plan This is a 62-year-old female admitted in respiratory failure. Patient was not able to get out of the chair and was intubated by EMS on the scene. Patient was found to have a CVA. She had an ICU course. She is now extubated and transferred to the hospitalist service. Patient also has GI bleeding. She is not able to pass a swallow evaluation. She needs a feeding tube per GI. Respiratory status is currently stable. 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 Chronic benzodiazepine use THC use Hyperammonemia Dysphagia s/p stoke . Advance diet per ST. Plan for modified barium swallow. Patient pulled NGT out CT head 06/22 revealed 2.5 cm left insular cortex CVA. Carotid Dopplers negative. MRI brain 06/24 revealed left sylvian fissure CVA. MRA brain 06/24 negative for occlusive disease Resume lactulose. 2-D echocardiogram revealed EF 40-45%. Right atrial and right ventricular dilatation. Hemoglobin A1c 6.5/lipids revealed low HDL 38. Low-cholesterol 95. Hold per rectum aspirin given rectal bleeding. Transition to ngt Neurology Dr. Barr PEG feeding tube placed 07/08/17 start feedings per GI /dietary recommendations However noted with respiratory distress 07/09/17 poss aspiration PNA, CXR reviewed , ABG, cbc, bmp reviewed no leukocytosis, no signs of systemic infection. Added augmentin, duonebs, IV solumedrol 40 mg once , IS, acapella. Improving. Acute hypoxemic respiratory failure- resolving however now aspirated and requiring more O2. Pneumonia with Stenotrophomonas Mild post extubation stridor Extubated 06/28/17 tolerated well. Mild post extubation stridor appears to have resolved. Received 5 doses of Decadron Bronchodilator therapy with albuterol/ipratropium aerosols every 6 hours with albuterol nebs every 2 hours. Chest x-ray stable bibasilar airspace disease Levaquin for stenotrophomonas 07/09 Noted with respiratory distress 07/09/17 poss aspiration PNA, CXR reviewed , ABG, cbc, bmp reviewed no leukocytosis, no signs of systemic infection. Added augmentin, duonebs, IV solumedrol 40 mg once , IS, acapella. Improving. ST and dietary ff for diet recommendations. O2 supplement keep O2 sat > 92% Hypertension Cardiomyopathy: - Patient evaluated by cardiology. 2-D echo revealed LVEF of 45%. Cardiomyopathy. Continue beta mrailou. PRN antihypertensives. Conservative measures per cardiology given the comorbidities. - IV hydralazine for SBP more than 160 Upper GI bleed Elevated transaminases Elevated ammonia Hypoalbuminemia Hepatitis C antibody positive Rectal bleeding: Protonix gtt changed to 40 mg IV q12. Patient repeatedly failed swallow evaluation. Hep C genotype/viral load pending HIDA scan 06/28 with distended gallbladder-no evidence of acute cholecystitis GI following- s/p PEG placement DC tray thickened liquids as patient aspirated and modified barium swallow abn. Stable h/h Follow H&H Hypokalemia. Replace with potassium by PEG. Check Mag and phos as well,. monitor for refeeding sdr. Hypophosphatemia. Refeeding sdr. Monitor and replace K, mag and Phos as indicated. Hypernatremia/Hyperchloremia: Improving. Monitor. Might start free water if necessary History of incontinence Persaud catheter placed for accurate I's and O's in a critically ill patient. Not stable enough yet to discontinue it. Acute kidney injury Possible secondary to dehydration rhabdo. Continue hydration with D5 quarter normal saline. Urine electrolytes/eosinophils negative Renal ultrasound revealed dilated bilateral calyces. Possibly will need urology evaluation when stabilizes Accurate I's and O's. Thrombocytopenia Monitor CBC daily. Follow trends Stenotrophomonas pneumonia Levaquin 750 mg IV every 24 hours Piperacillin/tazobactam day 7-DC. DCd Vancomycin day #3 Pertinent cultures 06/25 - sputum - stenotrophomonas 06/25 - blood cultures 2 -no growth 06/22 - UA - gram positive mixed organisms. UA / negative 06/22 - blood cultures 2 - no growth Influenza negative Unable to give acetaminophen secondary to elevated transaminases did unable to give NSAIDs secondary to elevated creatinine PT/OT evaluate and treat Prophylaxis - GI - IV Protonix - DVT - SCD/heparin subcutaneous on hold due to GI bleed. Discussed with the patient, nurse. Case management ff regarding DC plan. SSI pending. No [facility] beds available. Difficult discharge. CM ff Problem Qualifiers (1) CVA (cerebral vascular accident): Qualified Codes: I63.9 - Cerebral infarction, unspecified (2) Stroke: Qualified Codes: I63.9 - Cerebral infarction, unspecified (3) Incontinence: Qualified Codes: R32 - Unspecified urinary incontinence Iza Browning MD Aug 05, 2017 11:09
[2017-08-05] MEDS: RESP: ALBUTEROL 2.5 MG/IPRATROPIUM 0.5 MG NEB (PRN) NEB ×2 (13:13)
[2017-08-05] MEDS: TEMAZEPAM 15 MG CAP PO PRN ×2 (22:21)
[2017-08-06] VITALS (8 sets, daily range): BP systolic 101–127; BP diastolic 56–76; PULSE 85–102; RESP 18–20; TEMP 97.6–99; O2SAT 93–100
--- NOTE | 2017-08-06 01:12 | RADRPT ---
EXAM DATE/TIME: 08/06/2017 00:36 [place] COMPARISON: ABDOMEN KUB ONLY, July 01, 2017, 13:19. INDICATIONS : Evaluation of PEG tube. Tube wasn't advanced or pulled back to the best knowledge of patient or staff but painful to the patient. MEDICAL HISTORY : Stroke. SURGICAL HISTORY : Peg tube ENCOUNTER: Initial ACUITY: 1 day PAIN SCORE: 6/10 LOCATION: Left Abdomen FINDINGS: Supine view of the abdomen was performed. The abdominal bowel gas pattern is normal. There appears to be a J-tube seen over the left lower abdomen. Free air is not seen. No abnormal masses, calcificat ions, or organomegaly is seen. The osseous structures are unremarkable. CONCLUSION: PEG tube overlying the left lower abdomen. Christopher Sarmiento MD on August 06, 2017 at 1:10 Board Certified Radiologist. This report was verified electronically.
[2017-08-06] MEDS: oxyCODONE/ACETAMINOPHEN 7.5 MG/325 MG TAB PO PRN ×12 (02:33→21:13)
[2017-08-06] MEDS: CHLORHEXIDINE GLUCONATE 2 % 1 PACK (2 CLOTHS) TOP SCH ×2 (03:55)
[2017-08-06] MEDS: METOPROLOL TARTRATE 25 MG TAB PO SCH ×6 (05:47→21:14)
[2017-08-06] MEDS: CHLORHEXIDINE 0.12% (ORAL KIT) 15 ML CUP MT SCH ×4 (07:31→20:00)
[2017-08-06] MEDS: RESP: ALBUTEROL 2.5 MG/IPRATROPIUM 0.5 MG NEB (PRN) NEB ×2 (08:09)
[2017-08-06] MEDS: SODIUM CHLORIDE 0.9% FLUSH 10 ML FLUSH IV FLUSH SCH ×4 (08:52→21:14)
[2017-08-06] MEDS: ASPIRIN 81 MG CHEW TAB PO SCH ×2 (08:52)
[2017-08-06] MEDS: LISINOPRIL 10 MG TAB PO SCH ×2 (08:52)
[2017-08-06] MEDS: ARTIFICIAL TEARS OPTH SOLN 15 ML BTL EACH EYE SCH ×6 (08:52→17:52)
[2017-08-06] MEDS: LACTULOSE SYRUP 20 GM/30 ML CUP PO SCH ×2 (08:53)
[2017-08-06] MEDS: LACTOBACILLUS ACIDOPHILUS 1 GM PACKET PO SCH ×4 (08:53→21:00)
[2017-08-06] MEDS: PANTOPRAZOLE SOD 40 MG DELAYED RELEASE TAB PO SCH ×4 (08:53→21:13)
[2017-08-06] MEDS: RIFAXIMIN 550 MG TAB PO SCH ×4 (08:53→21:14)
--- NOTE | 2017-08-06 11:15 | HHI.PR ---
Subjective Remarks In bed, appears in nad. She is coughing more. Says she has soem abdominal pain because of cough. No fever or chills.No n/v/d/c. Eating well. Objective Vitals Vital Signs Date Time Temp Pulse Resp B/P (MAP) Pulse Ox O2 Delivery O2 Flow Rate FiO2 08/06/17 08:13 98.4 88 20 108/70 (83) 94 08/06/17 06:29 95 Nasal Cannula 2.00 08/06/17 04:00 97.9 86 20 101/56 (71) 95 08/06/17 03:53 18 08/06/17 01:24 95 Nasal Cannula 2.00 08/06/17 00:00 99.0 85 18 119/59 (79) 100 08/05/17 21:50 98.6 103 18 106/68 (81) 96 08/05/17 20:00 99.4 100 18 117/60 (79) 98 08/05/17 16:00 99.3 101 18 93/53 (66) 90 08/05/17 13:13 96 Nasal Cannula 2.00 08/05/17 11:51 98.1 96 20 102/67 (79) 95 I/O 08/05/17 08/05/17 08/05/17 08/06/17 08/06/17 08/06/17 07:00 15:00 23:00 07:00 15:00 23:00 Intake Total 650 ml 960 ml Balance 650 ml 960 ml Intake Oral 960 ml Tube Feeding 450 ml Tube Irrigant 200 ml # Voids 0 3 3 # Bowel Movements 0 1 1 Imaging Last Impressions Abdomen X-Ray 08/06/17 0000 Signed Impressions: Service Date/Time: Sunday, August 06, 2017 00:36 - CONCLUSION: PEG tube overlying the left lower abdomen. Christopher Sarmiento MD Modified Barium Swallow 07/19/17 0000 Signed Impressions: Service Date/Time: Wednesday, July 19, 2017 00:00 - CONCLUSION: Penetration and aspiration as above within liquids, penetration with nectar thick consistency. Jude Braxton MD Chest X-Ray 07/09/17 0000 Signed Impressions: Service Date/Time: Sunday, July 09, 2017 14:04 - CONCLUSION: 1. Stable mild central bibasilar patchy airspace disease. 2. No significant interval change. Gustavo Santoro MD Head CT 07/06/17 0000 Signed Impressions: Service Date/Time: Thursday, July 06, 2017 09:07 - CONCLUSION: 1. 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 2. Mucous retention cyst within left maxillary and right sphenoid sinuses. Juan Pablo Huffman MD Hepatobiliary Scan Nuclear Medicine 06/28/17 0900 Signed Impressions: Service Date/Time: Wednesday, June 28, 2017 10:17 - CONCLUSION: Nonspecific persistent distention of the gallbladder. No evidence of acute cholecystitis or biliary obstruction. Christopher Gutierrez MD Lung Scan-VQ Nuclear Medicine 06/24/17 0000 Signed Impressions: Service Date/Time: Saturday, June 24, 2017 12:21 - CONCLUSION: 1. Low probability of pulmonary embolism Jose Richard MD Head Magnetic Resonance Angiography 06/24/17 0000 Signed Impressions: Service Date/Time: Saturday, June 24, 2017 13:37 - CONCLUSION: Negative for major branch vessels obstruction in spite of MRI findings. Rudy Meng MD FACR Brain MRI 06/24/17 0000 Signed Impressions: Service Date/Time: Saturday, June 24, 2017 13:37 - CONCLUSION: Findings consistent with acute infarct left sylvian region anteriorly without hemorrhage. Rudy Meng MD FACR Carotid Artery Ultrasound 06/22/17 0000 Signed Impressions: Service Date/Time: Thursday, June 22, 2017 15:56 - CONCLUSION: No evidence of flow-limiting carotid stenosis. Christopher Leonardo MD Abdomen Ultrasound 06/22/17 Signed Impressions: Service Date/Time: Thursday, June 22, 2017 16:30 - CONCLUSION: Distended gallbladder with wall thickening and internal debris. Mild calyceal dilatation involving the kidneys bilaterally Christopher Leonardo MD Objective Remarks GENERAL: Chronically ill-appearing female, cachectic, appearing older than stated age, doesn't appear in acute distress. CARDIOVASCULAR: Normal rate and regular rhythm without murmurs, gallops, or rubs. RESPIRATORY: Less SOB and cough, improving. Coarse breath sounds bilaterally. Mostly upper airway transmission. Barrel chested. GASTROINTESTINAL: PEG tube in place, dressing c/d/di. Abdomen soft, non-tender, non-distended. Normal active bowel sounds MUSCULOSKELETAL: Very thin extremities. Extremities without cyanosis, or edema. NEURO: Alert to self. Aphasic. However able to nod to questions/ writing needs. Procedures PEG tube insertion. A/P Problem List: (1) Thrombocytopenia ICD Code: D69.6 - Thrombocytopenia, unspecified (2) Polycythemia ICD Code: D75.1 - Secondary polycythemia (3) CVA (cerebral vascular accident) ICD Code: I63.9 - Cerebral infarction, unspecified (4) Stroke ICD Code: I63.9 - Cerebral infarction, unspecified Status: Acute (5) Incontinence ICD Code: R32 - Unspecified urinary incontinence (6) Cystitis ICD Code: N30.90 - Cystitis, unspecified without hematuria Assessment and Plan This is a 62-year-old female admitted in respiratory failure. Patient was not able to get out of the chair and was intubated by EMS on the scene. Patient was found to have a CVA. She had an ICU course. She is now extubated and transferred to the hospitalist service. Patient also has GI bleeding. She is not able to pass a swallow evaluation. She needs a feeding tube per GI. Respiratory status is currently stable. 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 Chronic benzodiazepine use THC use Hyperammonemia Dysphagia s/p stoke . Advance diet per ST. Plan for modified barium swallow. Patient pulled NGT out CT head 06/22 revealed 2.5 cm left insular cortex CVA. Carotid Dopplers negative. MRI brain 06/24 revealed left sylvian fissure CVA. MRA brain 06/24 negative for occlusive disease Resume lactulose. 2-D echocardiogram revealed EF 40-45%. Right atrial and right ventricular dilatation. Hemoglobin A1c 6.5/lipids revealed low HDL 38. Low-cholesterol 95. Hold per rectum aspirin given rectal bleeding. Transition to ngt Neurology Dr. Barr PEG feeding tube placed 07/08/17 start feedings per GI /dietary recommendations However noted with respiratory distress 07/09/17 poss aspiration PNA, CXR reviewed , ABG, cbc, bmp reviewed no leukocytosis, no signs of systemic infection. Added augmentin, duonebs, IV solumedrol 40 mg once , IS, acapella. Improving. Acute hypoxemic respiratory failure- resolving Pneumonia with Stenotrophomonas Mild post extubation stridor Extubated 06/28/17 tolerated well. Mild post extubation stridor appears to have resolved. Received 5 doses of Decadron Bronchodilator therapy with albuterol/ipratropium aerosols every 6 hours with albuterol nebs every 2 hours. Chest x-ray stable bibasilar airspace disease Levaquin for stenotrophomonas 07/09 Noted with respiratory distress 07/09/17 poss aspiration PNA, CXR reviewed , ABG, cbc, bmp reviewed no leukocytosis, no signs of systemic infection. Added augmentin, duonebs, IV solumedrol 40 mg once , IS, acapella. Improving. ST and dietary ff for diet recommendations. O2 supplement keep O2 sat > 92% Hypertension Cardiomyopathy: - Patient evaluated by cardiology. 2-D echo revealed LVEF of 45%. Cardiomyopathy. Continue beta marilou. PRN antihypertensives. Conservative measures per cardiology given the comorbidities. - IV hydralazine for SBP more than 160 Upper GI bleed Elevated transaminases Elevated ammonia Hypoalbuminemia Hepatitis C antibody positive Rectal bleeding: Protonix gtt changed to 40 mg IV q12. Patient repeatedly failed swallow evaluation. Hep C genotype/viral load pending HIDA scan 06/28 with distended gallbladder-no evidence of acute cholecystitis GI following- s/p PEG placement DC tray thickened liquids as patient aspirated and modified barium swallow abn. Stable h/h Follow H&H Hypokalemia. Replace with potassium by PEG. Check Mag and phos as well,. monitor for refeeding sdr. Hypophosphatemia. Refeeding sdr. Monitor and replace K, mag and Phos as indicated. Hypernatremia/Hyperchloremia: Improving. Monitor. Might start free water if necessary History of incontinence Persaud catheter placed for accurate I's and O's in a critically ill patient. Not stable enough yet to discontinue it. Acute kidney injury Possible secondary to dehydration rhabdo. Continue hydration with D5 quarter normal saline. Urine electrolytes/eosinophils negative Renal ultrasound revealed dilated bilateral calyces. Possibly will need urology evaluation when stabilizes Accurate I's and O's. Thrombocytopenia Monitor CBC daily. Follow trends Stenotrophomonas pneumonia Levaquin 750 mg IV every 24 hours Piperacillin/tazobactam day 7-DC. DCd Vancomycin day #3 Pertinent cultures 06/25 - sputum - stenotrophomonas 06/25 - blood cultures 2 -no growth 06/22 - UA - gram positive mixed organisms. UA / negative 06/22 - blood cultures 2 - no growth Influenza negative Unable to give acetaminophen secondary to elevated transaminases did unable to give NSAIDs secondary to elevated creatinine PT/OT evaluate and treat Prophylaxis - GI - IV Protonix - DVT - SCD/heparin subcutaneous on hold due to GI bleed. Discussed with the patient, nurse. Case management ff regarding DC plan. SSI pending. No jayne beds available. Difficult discharge. CM ff Problem Qualifiers (1) CVA (cerebral vascular accident): Qualified Codes: I63.9 - Cerebral infarction, unspecified (2) Stroke: Qualified Codes: I63.9 - Cerebral infarction, unspecified (3) Incontinence: Qualified Codes: R32 - Unspecified urinary incontinence Iza Browning MD Aug 06, 2017 11:15
[2017-08-06] MEDS ORDERED: guaiFENesin/DEXTROMETHORPHAN 200 MG/20 MG/10 ML CUP PO PRN ×2 (14:15)
--- NOTE | 2017-08-06 15:03 | HHI.GIFU ---
GI Follow-up Note Consult Follow-up Subjective: Patient laying in bed comfortably, no new complaints except Abdominal pain. Objective: PHYSICAL EXAMINATION: Vitals signs stable No fever HEENT: Pupils round and reactive to light; normocephalic; atraumatic; no jaundice. Throat is clear. NECK: Neck is supple, no JVD, no lymphadenopathy. CHEST: Chest is clear to auscultation and percussion. CARDIAC: Regular rate and rhythm with no murmur gallop or rubs. ABDOMEN: Soft, nondistended, nontender; no hepatosplenomegaly; bowel sounds are present in all four quadrants. EXTREMITIES: No clubbing, cyanosis, or edema. SKIN: Normal; no rash; no jaundice. 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 Available Data (labs, X- Rays, Procedues) : Vital Signs Date Time Temp Pulse Resp B/P (MAP) Pulse Ox O2 Delivery O2 Flow Rate FiO2 08/06/17 14:18 108/62 (77) 08/06/17 12:23 97.6 85 20 113/59 (77) 98 08/06/17 08:13 98.4 88 20 108/70 (83) 94 Last Impressions Abdomen X-Ray 08/06/17 0000 Signed Impressions: Service Date/Time: Sunday, August 06, 2017 00:36 - CONCLUSION: PEG tube overlying the left lower abdomen. Christopher Sarmiento MD Modified Barium Swallow 07/19/17 0000 Signed Impressions: Service Date/Time: Wednesday, July 19, 2017 00:00 - CONCLUSION: Penetration and aspiration as above within liquids, penetration with nectar thick consistency. Jude Braxton MD Chest X-Ray 07/09/17 0000 Signed Impressions: Service Date/Time: Sunday, July 09, 2017 14:04 - CONCLUSION: 1. Stable mild central bibasilar patchy airspace disease. 2. No significant interval change. Gustavo Santoro MD Head CT 07/06/17 0000 Signed Impressions: Service Date/Time: Thursday, July 06, 2017 09:07 - CONCLUSION: 1. 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 2. Mucous retention cyst within left maxillary and right sphenoid sinuses. Juan Pablo Huffman MD Hepatobiliary Scan Nuclear Medicine 06/28/17 0900 Signed Impressions: Service Date/Time: Wednesday, June 28, 2017 10:17 - CONCLUSION: Nonspecific persistent distention of the gallbladder. No evidence of acute cholecystitis or biliary obstruction. Christopher Gutierrez MD Lung Scan-VQ Nuclear Medicine 06/24/17 0000 Signed Impressions: Service Date/Time: Saturday, June 24, 2017 12:21 - CONCLUSION: 1. Low probability of pulmonary embolism Jose Richard MD Head Magnetic Resonance Angiography 06/24/17 0000 Signed Impressions: Service Date/Time: Saturday, June 24, 2017 13:37 - CONCLUSION: Negative for major branch vessels obstruction in spite of MRI findings. Rudy Meng MD FACR Brain MRI 06/24/17 0000 Signed Impressions: Service Date/Time: Saturday, June 24, 2017 13:37 - CONCLUSION: Findings consistent with acute infarct left sylvian region anteriorly without hemorrhage. Rudy Meng MD FACR Carotid Artery Ultrasound 06/22/17 0000 Signed Impressions: Service Date/Time: Thursday, June 22, 2017 15:56 - CONCLUSION: No evidence of flow-limiting carotid stenosis. Christopher Leonardo MD Abdomen Ultrasound 06/22/17 0000 Signed Impressions: Service Date/Time: Thursday, June 22, 2017 16:30 - CONCLUSION: Distended gallbladder with wall thickening and internal debris. Mild calyceal dilatation involving the kidneys bilaterally Chrisotpher Leonardo MD Allergies Coded Allergies Type Severity Reaction Last Updated Verified No Known Allergies 06/22/17 Yes Active Scripts Medications Dose Route/Sig Max Daily Dose Days Date Category Active Prescriptions or Reported Medications Unobtainable Rx ASSESSMENT/PLAN: Seen and examined , reconsulted for ? displaced peg tube. Pt. states last evening started having abdominal pain at peg site. Pain and induration around peg site. Gastrograffin through peg ordered to check placement. Do not use peg till placement confirmed. May need to remove peg.Repeat labs. Discussed with pt. and family at the bedside. Will follow. Thank you It was a pleasure seeing Vane Perez. Thank you for this consult. Entered by: Alyson Velasquez MD Aug 06, 2017 15:03
[2017-08-06 17:09] LABS: AUTOMATED NEUTROPHIL # 5.8 TH/MM3 (1.8-7.7); BASOPHIL % 0.4 % (0.0-2.0); EOSINOPHIL # 0.2 TH/MM3 (0-0.4); HEMATOCRIT 29.6 % (35.0-46.0); HEMOGLOBIN 9.5 GM/DL (11.6-15.3); LYMPH % 16.9 % (9.0-44.0); LYMPHOCYTE # 1.3 TH/MM3 (1.0-4.8); MEAN CELL VOLUME 91.3 FL (80.0-100.0); MEAN CORPUSCULAR HEMOGLOBIN 29.4 PG (27.0-34.0); MEAN CORPUSCULAR HGB CONC 32.2 % (32.0-36.0); MEAN PLATELET VOLUME 9.4 FL (7.0-11.0); MONO % 7.5 % (0.0-8.0); MONOCYTE # 0.6 TH/MM3 (0-0.9); NEUT % 73.2 % (16.0-70.0); PLATELET COUNT 336 TH/MM3 (150-450); RED BLOOD COUNT 3.24 MIL/MM3 (4.00-5.30); RED CELL DISTRIBUTION WIDTH 13.8 % (11.6-17.2); WHITE BLOOD COUNT 7.9 TH/MM3 (4.0-11.0)
[2017-08-07] VITALS (9 sets, daily range): BP systolic 94–137; BP diastolic 56–78; PULSE 76–90; RESP 16–20; TEMP 97–98.3; O2SAT 93–100
[2017-08-07] MEDS: oxyCODONE/ACETAMINOPHEN 7.5 MG/325 MG TAB PO PRN ×12 (01:37→21:26)
[2017-08-07] MEDS: CHLORHEXIDINE GLUCONATE 2 % 1 PACK (2 CLOTHS) TOP SCH ×2 (04:00)
[2017-08-07] MEDS: METOPROLOL TARTRATE 25 MG TAB PO SCH ×6 (05:39→21:26)
[2017-08-07] MEDS: RESP: ALBUTEROL 2.5 MG/IPRATROPIUM 0.5 MG NEB (PRN) NEB ×6 (05:57→19:13)
[2017-08-07] MEDS: CHLORHEXIDINE 0.12% (ORAL KIT) 15 ML CUP MT SCH ×4 (07:40→20:00)
[2017-08-07] MEDS: ARTIFICIAL TEARS OPTH SOLN 15 ML BTL EACH EYE SCH ×6 (08:18→17:03)
[2017-08-07] MEDS: LACTOBACILLUS ACIDOPHILUS 1 GM PACKET PO SCH ×4 (08:20→21:00)
[2017-08-07] MEDS: SODIUM CHLORIDE 0.9% FLUSH 10 ML FLUSH IV FLUSH SCH ×4 (08:20→21:25)
[2017-08-07] MEDS: PANTOPRAZOLE SOD 40 MG DELAYED RELEASE TAB PO SCH ×4 (08:20→21:25)
[2017-08-07] MEDS: LISINOPRIL 10 MG TAB PO SCH ×2 (08:20)
[2017-08-07] MEDS: ASPIRIN 81 MG CHEW TAB PO SCH ×2 (08:21)
[2017-08-07] MEDS: LACTULOSE SYRUP 20 GM/30 ML CUP PO SCH ×2 (08:21)
[2017-08-07] MEDS: RIFAXIMIN 550 MG TAB PO SCH ×4 (08:21→21:24)
--- NOTE | 2017-08-07 09:46 | HHI.PR ---
Subjective Remarks With some abdominal pain at the site of feeding tube, patient has adequate PO intake, evaluated by Gi , plan to remove feedin gtube today. Patien tin bed, she is coughing less today sattign well on room air at this time. No n/v/d/c. No fever ro chills. Deneis chest pain or sob. Speech is improving. Family at bedside. Objective Vitals Vital Signs Date Time Temp Pulse Resp B/P (MAP) Pulse Ox O2 Delivery O2 Flow Rate FiO2 08/07/17 08:47 97.0 90 20 134/77 (96) 93 08/07/17 08:45 93 2.00 08/07/17 07:13 96 21 08/07/17 06:49 19 08/07/17 05:57 98 Nasal Cannula 2.50 08/07/17 05:41 96 Nasal Cannula 2.00 08/07/17 05:34 98.2 88 16 107/65 (79) 95 08/07/17 00:58 98.3 78 20 112/57 (75) 100 08/06/17 22:15 95 Nasal Cannula 2.00 08/06/17 20:36 98.5 102 20 114/75 (88) 93 08/06/17 20:00 Nasal Cannula 2.50 08/06/17 15:59 97.8 94 20 127/76 (93) 95 08/06/17 14:18 108/62 (77) 08/06/17 12:23 97.6 85 20 113/59 (77) 98 08/06/17 12:20 98 Nasal Cannula 2.00 I/O 08/06/17 08/06/17 08/06/17 08/07/17 08/07/17 08/07/17 07:00 15:00 23:00 07:00 15:00 23:00 Intake Total 960 ml 720 ml Balance 960 ml 720 ml Intake Oral 960 ml 720 ml # Voids 3 1 # Bowel Movements 1 Result Diagram: 08/06/17 1615 Imaging Last Impressions Abdomen X-Ray 08/06/17 0000 Signed Impressions: Service Date/Time: Sunday, August 06, 2017 00:36 - CONCLUSION: PEG tube overlying the left lower abdomen. Christopher Sarmiento MD Modified Barium Swallow 07/19/17 0000 Signed Impressions: Service Date/Time: Wednesday, July 19, 2017 00:00 - CONCLUSION: Penetration and aspiration as above within liquids, penetration with nectar thick consistency. Jude Braxton MD Chest X-Ray 07/09/17 0000 Signed Impressions: Service Date/Time: Sunday, July 09, 2017 14:04 - CONCLUSION: 1. Stable mild central bibasilar patchy airspace disease. 2. No significant interval change. Gustavo Santoro MD Head CT 07/06/17 0000 Signed Impressions: Service Date/Time: Thursday, July 06, 2017 09:07 - CONCLUSION: 1. 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 2. Mucous retention cyst within left maxillary and right sphenoid sinuses. Juan Pablo Huffman MD Hepatobiliary Scan Nuclear Medicine 06/28/17 0900 Signed Impressions: Service Date/Time: Wednesday, June 28, 2017 10:17 - CONCLUSION: Nonspecific persistent distention of the gallbladder. No evidence of acute cholecystitis or biliary obstruction. Christopher Gutierrez MD Lung Scan-VQ Nuclear Medicine 06/24/17 0000 Signed Impressions: Service Date/Time: Saturday, June 24, 2017 12:21 - CONCLUSION: 1. Low probability of pulmonary embolism Jose Richard MD Head Magnetic Resonance Angiography 06/24/17 0000 Signed Impressions: Service Date/Time: Saturday, June 24, 2017 13:37 - CONCLUSION: Negative for major branch vessels obstruction in spite of MRI findings. Rudy Meng MD FACR Brain MRI 06/24/17 0000 Signed Impressions: Service Date/Time: Saturday, June 24, 2017 13:37 - CONCLUSION: Findings consistent with acute infarct left sylvian region anteriorly without hemorrhage. Rudy Meng MD FACR Carotid Artery Ultrasound 06/22/17 0000 Signed Impressions: Service Date/Time: Thursday, June 22, 2017 15:56 - CONCLUSION: No evidence of flow-limiting carotid stenosis. Christopher Leonardo MD Abdomen Ultrasound 06/22/17 0000 Signed Impressions: Service Date/Time: Thursday, June 22, 2017 16:30 - CONCLUSION: Distended gallbladder with wall thickening and internal debris. Mild calyceal dilatation involving the kidneys bilaterally Christopher Leonardo MD Objective Remarks GENERAL: Chronically ill-appearing female, cachectic, appearing older than stated age, doesn't appear in acute distress. CARDIOVASCULAR: Normal rate and regular rhythm without murmurs, gallops, or rubs. RESPIRATORY: Less SOB and cough, improving. Coarse breath sounds bilaterally. Mostly upper airway transmission. Barrel chested. GASTROINTESTINAL: PEG tube in place, dressing c/d/di. Abdomen soft, tender around the tube and left lower abdomen. Normal active bowel sounds MUSCULOSKELETAL: Very thin extremities. Extremities without cyanosis, or edema. NEURO: Alert to self. Aphasic. However able to nod to questions/ writing needs. Procedures PEG tube insertion. A/P Problem List: (1) Thrombocytopenia ICD Code: D69.6 - Thrombocytopenia, unspecified (2) Polycythemia ICD Code: D75.1 - Secondary polycythemia (3) CVA (cerebral vascular accident) ICD Code: I63.9 - Cerebral infarction, unspecified (4) Stroke ICD Code: I63.9 - Cerebral infarction, unspecified Status: Acute (5) Incontinence ICD Code: R32 - Unspecified urinary incontinence (6) Cystitis ICD Code: N30.90 - Cystitis, unspecified without hematuria Assessment and Plan This is a 62-year-old female admitted in respiratory failure. Patient was not able to get out of the chair and was intubated by EMS on the scene. Patient was found to have a CVA. She had an ICU course. She is now extubated and transferred to the hospitalist service. Patient also has GI bleeding. She is not able to pass a swallow evaluation. She needs a feeding tube per GI. Respiratory status is currently stable. 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 Chronic benzodiazepine use THC use Hyperammonemia Dysphagia s/p stoke . Advance diet per ST. Plan for modified barium swallow. Patient pulled NGT out CT head 06/22 revealed 2.5 cm left insular cortex CVA. Carotid Dopplers negative. MRI brain 06/24 revealed left sylvian fissure CVA. MRA brain 06/24 negative for occlusive disease Resume lactulose. 2-D echocardiogram revealed EF 40-45%. Right atrial and right ventricular dilatation. Hemoglobin A1c 6.5/lipids revealed low HDL 38. Low-cholesterol 95. Hold per rectum aspirin given rectal bleeding. Transition to ngt Neurology Dr. Barr PEG feeding tube placed 07/08/17 feedings per GI /dietary recommendations . Patient has a good PO intake, and KUB shows feeding tube is dislodged. Plan to remove feeding tube per GI Acute hypoxemic respiratory failure- resolving on/off nasal canula Pneumonia with Stenotrophomonas Mild post extubation stridor Extubated 06/28/17 tolerated well. Mild post extubation stridor appears to have resolved. Received 5 doses of Decadron Bronchodilator therapy with albuterol/ipratropium aerosols every 6 hours with albuterol nebs every 2 hours. Chest x-ray stable bibasilar airspace disease Levaquin for stenotrophomonas 07/09 Noted with respiratory distress 07/09/17 poss aspiration PNA, CXR reviewed , ABG, cbc, bmp reviewed no leukocytosis, no signs of systemic infection. Added augmentin, duonebs, IV solumedrol 40 mg once , IS, acapella. Improving. ST and dietary ff for diet recommendations. O2 supplement keep O2 sat > 92% Hypertension Cardiomyopathy: - Patient evaluated by cardiology. 2-D echo revealed LVEF of 45%. Cardiomyopathy. Continue beta marilou. PRN antihypertensives. Conservative measures per cardiology given the comorbidities. - IV hydralazine for SBP more than 160 Upper GI bleed Elevated transaminases Elevated ammonia Hypoalbuminemia Hepatitis C antibody positive Rectal bleeding: Protonix gtt changed to 40 mg IV q12. Patient repeatedly failed swallow evaluation. Hep C genotype/viral load pending HIDA scan 06/28 with distended gallbladder-no evidence of acute cholecystitis GI following- s/p PEG placement DC tray thickened liquids as patient aspirated and modified barium swallow abn. Stable h/h Follow H&H Hypokalemia. Replace with potassium by PEG. Check Mag and phos as well,. monitor for refeeding sdr. Hypophosphatemia. Refeeding sdr. Monitor and replace K, mag and Phos as indicated. Hypernatremia/Hyperchloremia: Improving. Monitor. Might start free water if necessary History of incontinence Persaud catheter placed for accurate I's and O's in a critically ill patient. Not stable enough yet to discontinue it. Acute kidney injury Possible secondary to dehydration rhabdo. Continue hydration with D5 quarter normal saline. Urine electrolytes/eosinophils negative Renal ultrasound revealed dilated bilateral calyces. Possibly will need urology evaluation when stabilizes Accurate I's and O's. Thrombocytopenia Monitor CBC daily. Follow trends Stenotrophomonas pneumonia Levaquin 750 mg IV every 24 hours Piperacillin/tazobactam day 7-DC. DCd Vancomycin day #3 Pertinent cultures 06/25 - sputum - stenotrophomonas / - blood cultures 2 -no growth 06/22 - UA - gram positive mixed organisms. UA 9/2 negative 06/22 - blood cultures 2 - no growth Influenza negative Unable to give acetaminophen secondary to elevated transaminases did unable to give NSAIDs secondary to elevated creatinine PT/OT evaluate and treat Prophylaxis - GI - IV Protonix - DVT - SCD/heparin subcutaneous on hold due to GI bleed. Discussed with the patient, nurse. Case management ff regarding DC plan. SSI pending. No jayne beds available. Difficult discharge. CM ff Plan to remove feeding tube today 08/07 per GI Problem Qualifiers (1) CVA (cerebral vascular accident): Qualified Codes: I63.9 - Cerebral infarction, unspecified (2) Stroke: Qualified Codes: I63.9 - Cerebral infarction, unspecified (3) Incontinence: Qualified Codes: R32 - Unspecified urinary incontinence Iza Browning MD Aug 07, 2017 09:46
--- NOTE | 2017-08-07 15:25 | HHI.GIFU ---
Subjective Remarks Resting in bed. C/o pain at peg tube site. Eating well- 75-100% meals. Would like peg tube removed. (Selma Fontana) Objective Vitals I&O Vital Signs Date Time Temp Pulse Resp B/P (MAP) Pulse Ox O2 Delivery O2 Flow Rate FiO2 08/07/17 12:11 98.3 76 20 137/78 (97) 93 08/07/17 08:47 97.0 90 20 134/77 (96) 93 08/07/17 08:45 93 2.00 08/07/17 07:13 96 21 08/07/17 06:49 19 08/07/17 05:57 98 Nasal Cannula 2.50 08/07/17 05:41 96 Nasal Cannula 2.00 08/07/17 05:34 98.2 88 16 107/65 (79) 95 08/07/17 00:58 98.3 78 20 112/57 (75) 100 08/06/17 22:15 95 Nasal Cannula 2.00 08/06/17 20:36 98.5 102 20 114/75 (88) 93 08/06/17 20:00 Nasal Cannula 2.50 08/06/17 15:59 97.8 94 20 127/76 (93) 95 I/O 08/06/17 08/06/17 08/06/17 08/07/17 08/07/17 08/07/17 07:00 15:00 23:00 07:00 15:00 23:00 Intake Total 960 ml 720 ml Balance 960 ml 720 ml Intake Oral 960 ml 720 ml # Voids 3 1 # Bowel Movements 1 Laboratory Laboratory Tests Test 08/06/17 16:15 White Blood Count 7.9 Red Blood Count 3.24 Hemoglobin 9.5 Hematocrit 29.6 Mean Corpuscular Volume 91.3 Mean Corpuscular Hemoglobin 29.4 Mean Corpuscular Hemoglobin Concent 32.2 Red Cell Distribution Width 13.8 Platelet Count 336 Mean Platelet Volume 9.4 Neutrophils (%) (Auto) 73.2 Lymphocytes (%) (Auto) 16.9 Monocytes (%) (Auto) 7.5 Eosinophils (%) (Auto) 2.0 Basophils (%) (Auto) 0.4 Neutrophils # (Auto) 5.8 Lymphocytes # (Auto) 1.3 Monocytes # (Auto) 0.6 Eosinophils # (Auto) 0.2 Basophils # (Auto) 0.0 CBC Comment DIFF FINAL Differential Comment Date/Time Source Procedure Growth Status 06/25/17 01:40 Blood Peripheral Aerobic Blood Culture - Final NO GROWTH IN 5 DAYS Complete 06/25/17 01:40 Blood Peripheral Anaerobic Blood Culture - Final NO GROWTH IN 5 DAYS Complete 06/25/17 10:00 Sputum Endotracheal Gram Stain - Final Complete 06/25/17 10:00 Sputum Culture - Final Stenotrophomonas Maltophilia Complete 06/22/17 13:30 Urine Catheterized Urine Urine Culture - Final 10-50,000 CFU/ML MIXED GRAM POSITIVE ... Complete Imaging Last Impressions Abdomen X-Ray 08/06/17 0000 Signed Impressions: Service Date/Time: Sunday, August 06, 2017 00:36 - CONCLUSION: PEG tube overlying the left lower abdomen. Christopher Sarmiento MD Modified Barium Swallow 07/19/17 0000 Signed Impressions: Service Date/Time: Wednesday, July 19, 2017 00:00 - CONCLUSION: Penetration and aspiration as above within liquids, penetration with nectar thick consistency. Jude Braxton MD Chest X-Ray 07/09/17 0000 Signed Impressions: Service Date/Time: Sunday, July 09, 2017 14:04 - CONCLUSION: 1. Stable mild central bibasilar patchy airspace disease. 2. No significant interval change. Gustavo Santoro MD Head CT 07/06/17 0000 Signed Impressions: Service Date/Time: Thursday, July 06, 2017 09:07 - CONCLUSION: 1. 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 2. Mucous retention cyst within left maxillary and right sphenoid sinuses. Juan Pablo Huffman MD Hepatobiliary Scan Nuclear Medicine 06/28/17 0900 Signed Impressions: Service Date/Time: Wednesday, June 28, 2017 10:17 - CONCLUSION: Nonspecific persistent distention of the gallbladder. No evidence of acute cholecystitis or biliary obstruction. Christopher Gutierrez MD Lung Scan-VQ Nuclear Medicine 06/24/17 0000 Signed Impressions: Service Date/Time: Saturday, June 24, 2017 12:21 - CONCLUSION: 1. Low probability of pulmonary embolism Jose Richard MD Head Magnetic Resonance Angiography 06/24/17 0000 Signed Impressions: Service Date/Time: Saturday, June 24, 2017 13:37 - CONCLUSION: Negative for major branch vessels obstruction in spite of MRI findings. Rudy Meng MD FACR Brain MRI 06/24/17 0000 Signed Impressions: Service Date/Time: Saturday, June 24, 2017 13:37 - CONCLUSION: Findings consistent with acute infarct left sylvian region anteriorly without hemorrhage. Rudy Meng MD FACR Carotid Artery Ultrasound 06/22/17 0000 Signed Impressions: Service Date/Time: Thursday, June 22, 2017 15:56 - CONCLUSION: No evidence of flow-limiting carotid stenosis. Christopher Leonardo MD Abdomen Ultrasound 06/22/17 0000 Signed Impressions: Service Date/Time: Thursday, June 22, 2017 16:30 - CONCLUSION: Distended gallbladder with wall thickening and internal debris. Mild calyceal dilatation involving the kidneys bilaterally Christopher Leonardo MD Physical Exam HEENT: Normocephalic; atraumatic; no jaundice. CHEST: Rhonchi CARDIAC: RRR ABDOMEN: Soft, nondistended, peg tube site with edema, mild erythema, significant tenderness. no hepatosplenomegaly; bowel sounds are present in all four quadrants EXTREMITIES: No clubbing, cyanosis, or edema. 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 Pt had EGD with peg tube placement (07/08/17)----> gastritis, esophagitis, peg tube placement. Reconsulted for pain at peg tube site. The site itself has edema, erythema, and significant tenderness. Tolerating po and eating 75-100% meals PEG tube removed without difficulty, still tenderness at site. Will get CT scan to further evaluate. PLAN: - S/P removal of peg tube - [facility] - CT scan abdomen and pelvis with po/iv contrast - Supportive care - Further recommendations to follow based on results of above - Pt seen and examined by Dr. Mojica and myself and this note is written on his behalf (Selma Fontana) Physician Comments Gastrograffin could not be done over the weekend. Peg removed at the bedside. CT abd/pelvis ordered. (Alyson Mojica MD) Selma Fontana Aug 07, 2017 15:24 Alyson Mojica MD Aug 07, 2017 15:29
[2017-08-07] MEDS ORDERED: DIATRIZOATE MEGLUM/DIATRIZOATE SOD 9 ML CUP PO ONE ×2 (16:30)
[2017-08-07] MEDS: TEMAZEPAM 15 MG CAP PO PRN ×2 (21:25)
[2017-08-08] VITALS (8 sets, daily range): BP systolic 87–118; BP diastolic 50–72; PULSE 94–115; RESP 18–20; TEMP 97.2–100.1; O2SAT 91–99
[2017-08-08] MEDS: CHLORHEXIDINE GLUCONATE 2 % 1 PACK (2 CLOTHS) TOP SCH ×2 (03:21)
[2017-08-08] MEDS: oxyCODONE/ACETAMINOPHEN 7.5 MG/325 MG TAB PO PRN ×10 (03:22→21:43)
[2017-08-08] MEDS: METOPROLOL TARTRATE 25 MG TAB PO SCH ×6 (05:59→22:00)
[2017-08-08] MEDS: CHLORHEXIDINE 0.12% (ORAL KIT) 15 ML CUP MT SCH ×4 (08:00→20:00)
[2017-08-08] MEDS: SODIUM CHLORIDE 0.9% FLUSH 10 ML FLUSH IV FLUSH SCH ×4 (08:33→23:48)
[2017-08-08] MEDS: ARTIFICIAL TEARS OPTH SOLN 15 ML BTL EACH EYE SCH ×6 (08:33→17:01)
[2017-08-08] MEDS: LISINOPRIL 10 MG TAB PO SCH ×2 (08:34)
[2017-08-08] MEDS: LACTULOSE SYRUP 20 GM/30 ML CUP PO SCH ×2 (08:34)
[2017-08-08] MEDS: PANTOPRAZOLE SOD 40 MG DELAYED RELEASE TAB PO SCH ×4 (08:34→23:46)
[2017-08-08] MEDS: RIFAXIMIN 550 MG TAB PO SCH ×4 (08:34→23:46)
[2017-08-08] MEDS: LACTOBACILLUS ACIDOPHILUS 1 GM PACKET PO SCH ×4 (08:34→21:00)
[2017-08-08] MEDS: ASPIRIN 81 MG CHEW TAB PO SCH ×2 (08:34)
--- NOTE | 2017-08-08 09:41 | HHI.GIFU ---
Subjective Remarks Resting in bed in no distress. Eating cereal mixed with yogurt. No nausea or vomiting. She continues to have mild tenderness in her left upper quadrant, but states this has improved since the PEG tube was removed. She has not gone for her CT scan yet because they were unable to get IV access last name. She reports that the vascular access team was able to get a IV and she is scheduled to go down for imaging this morning. (Selma Fontana) Objective Vitals I&O Vital Signs Date Time Temp Pulse Resp B/P (MAP) Pulse Ox O2 Delivery O2 Flow Rate FiO2 08/08/17 09:09 100.1 109 18 118/66 (83) 91 08/08/17 08:54 98 2.00 08/08/17 07:44 99 Nasal Cannula 2.00 08/08/17 05:00 99.7 102 18 104/72 (83) 95 08/08/17 04:31 18 08/08/17 02:00 96 Nasal Cannula 2.00 08/08/17 00:40 97.2 95 18 102/59 (73) 95 08/07/17 22:15 95 Nasal Cannula 2.00 08/07/17 20:00 97.9 80 16 94/56 (69) 95 08/07/17 19:13 98 Nasal Cannula 2.00 08/07/17 16:44 97.0 79 20 100/63 (75) 99 08/07/17 12:11 98.3 76 20 137/78 (97) 93 I/O 08/07/17 08/07/17 08/07/17 08/08/17 08/08/17 08/08/17 07:00 15:00 23:00 07:00 15:00 23:00 Intake Total 1020 ml Balance 1020 ml Intake Oral 1020 ml # Voids 1 2 Laboratory Date/Time Source Procedure Growth Status 06/25/17 01:40 Blood Peripheral Aerobic Blood Culture - Final NO GROWTH IN 5 DAYS Complete 06/25/17 01:40 Blood Peripheral Anaerobic Blood Culture - Final NO GROWTH IN 5 DAYS Complete 06/25/17 10:00 Sputum Endotracheal Gram Stain - Final Complete 06/25/17 10:00 Sputum Culture - Final Stenotrophomonas Maltophilia Complete 06/22/17 13:30 Urine Catheterized Urine Urine Culture - Final 10-50,000 CFU/ML MIXED GRAM POSITIVE ... Complete Imaging Last Impressions Abdomen X-Ray 08/06/17 0000 Signed Impressions: Service Date/Time: Sunday, August 06, 2017 00:36 - CONCLUSION: PEG tube overlying the left lower abdomen. Christopher Sarmiento MD Modified Barium Swallow 07/19/17 0000 Signed Impressions: Service Date/Time: Wednesday, July 19, 2017 00:00 - CONCLUSION: Penetration and aspiration as above within liquids, penetration with nectar thick consistency. Jude Braxton MD Chest X-Ray 07/09/17 0000 Signed Impressions: Service Date/Time: Sunday, July 09, 2017 14:04 - CONCLUSION: 1. Stable mild central bibasilar patchy airspace disease. 2. No significant interval change. Gustavo Santoro MD Head CT 07/06/17 0000 Signed Impressions: Service Date/Time: Thursday, July 06, 2017 09:07 - CONCLUSION: 1. 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 2. Mucous retention cyst within left maxillary and right sphenoid sinuses. Juan Pablo Huffman MD Hepatobiliary Scan Nuclear Medicine 06/28/17 0900 Signed Impressions: Service Date/Time: Wednesday, June 28, 2017 10:17 - CONCLUSION: Nonspecific persistent distention of the gallbladder. No evidence of acute cholecystitis or biliary obstruction. Christopher Gutierrez MD Lung Scan-V Nuclear Medicine 06/24/17 0000 Signed Impressions: Service Date/Time: Saturday, June 24, 2017 12:21 - CONCLUSION: 1. Low probability of pulmonary embolism Jose Richard MD Head Magnetic Resonance Angiography 06/24/17 0000 Signed Impressions: Service Date/Time: Saturday, June 24, 2017 13:37 - CONCLUSION: Negative for major branch vessels obstruction in spite of MRI findings. Rudy Meng MD FACR Brain MRI 06/24/17 0000 Signed Impressions: Service Date/Time: Saturday, June 24, 2017 13:37 - CONCLUSION: Findings consistent with acute infarct left sylvian region anteriorly without hemorrhage. Rudy Meng MD FACR Carotid Artery Ultrasound 06/22/17 0000 Signed Impressions: Service Date/Time: Thursday, June 22, 2017 15:56 - CONCLUSION: No evidence of flow-limiting carotid stenosis. Christopher Leonardo MD Abdomen Ultrasound 06/22/17 0000 Signed Impressions: Service Date/Time: Thursday, June 22, 2017 16:30 - CONCLUSION: Distended gallbladder with wall thickening and internal debris. Mild calyceal dilatation involving the kidneys bilaterally Christopher Leonardo MD Physical Exam HEENT: Normocephalic; atraumatic; no jaundice. CHEST: Rhonchi CARDIAC: RRR ABDOMEN: Soft, mildly distended, mild luq tenderness, no hepatosplenomegaly; bowel sounds are present in all four quadrants EXTREMITIES: No clubbing, cyanosis, or edema. 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 EGD with peg tube placement (07/08/17)----> gastritis, esophagitis, peg tube placement. Reconsulted for pain at peg tube site. The site itself has edema, erythema, and significant tenderness and was removed on 08/07. CT scan was ordered, but is pending because they were just able to get IV access. Her abdominal pain has improved although she continues to have mild left upper quadrant tenderness. Tolerating po and eating 75-100% meals- bleeding cereal mixed with yogurt without any difficulty. We will await CT scan. - Anemia. 9.5/29.6. - Gastritis/esophagitis. Stomach with minimal chronic gastritis, distal esophagus with squamous mucosa without significant histopathologic abnoramlity, negative for intestinal metasplasia, dysphasia, or malignancy. 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 - CVA, PNA, HTN, Cardiomyopathy, per attending. - PLAN: - [facility] - Record meal percentages - Await CT scan abdomen and pelvis - S/P removal of peg tube- 08/07 - Supportive care - Further recommendations to follow based on results of above - Pt seen and examined by Dr. Camacho and myself and this note is written on his behalf (Selma Fontana) Physician Comments Patient seen and examined Agree with above Continue with current supportive care Monitor labs Await CT of the abdomen (Brady Camacho MD) Selma Fontana Aug 08, 2017 09:41 Brady Camacho MD Aug 08, 2017 21:35
--- NOTE | 2017-08-08 10:42 | HHI.PR ---
Subjective Remarks sitting comfortably. had a low grade fever earlier. has mild abdominal pain. has some drainage from the site of PEG. seen with ST at the bedside. d/w the RN. Objective Vitals Vital Signs Date Time Temp Pulse Resp B/P (MAP) Pulse Ox O2 Delivery O2 Flow Rate FiO2 08/08/17 09:09 100.1 109 18 118/66 (83) 91 08/08/17 08:54 98 2.00 08/08/17 07:44 99 Nasal Cannula 2.00 08/08/17 05:00 99.7 102 18 104/72 (83) 95 08/08/17 04:31 18 08/08/17 02:00 96 Nasal Cannula 2.00 08/08/17 00:40 97.2 95 18 102/59 (73) 95 08/07/17 22:15 95 Nasal Cannula 2.00 08/07/17 20:00 97.9 80 16 94/56 (69) 95 08/07/17 19:13 98 Nasal Cannula 2.00 08/07/17 16:44 97.0 79 20 100/63 (75) 99 08/07/17 12:11 98.3 76 20 137/78 (97) 93 I/O 08/07/17 08/07/17 08/07/17 08/08/17 08/08/17 08/08/17 07:00 15:00 23:00 07:00 15:00 23:00 Intake Total 1020 ml Balance 1020 ml Intake Oral 1020 ml # Voids 1 2 Result Diagram: 08/06/17 1615 Imaging Last Impressions Abdomen X-Ray 08/06/17 0000 Signed Impressions: Service Date/Time: Sunday, August 06, 2017 00:36 - CONCLUSION: PEG tube overlying the left lower abdomen. Christopher Sarmiento MD Modified Barium Swallow 07/19/17 0000 Signed Impressions: Service Date/Time: Wednesday, July 19, 2017 00:00 - CONCLUSION: Penetration and aspiration as above within liquids, penetration with nectar thick consistency. Jude Braxton MD Chest X-Ray 07/09/17 0000 Signed Impressions: Service Date/Time: Sunday, July 09, 2017 14:04 - CONCLUSION: 1. Stable mild central bibasilar patchy airspace disease. 2. No significant interval change. Gustavo Santoro MD Head CT 07/06/17 0000 Signed Impressions: Service Date/Time: Thursday, July 06, 2017 09:07 - CONCLUSION: 1. 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 2. Mucous retention cyst within left maxillary and right sphenoid sinuses. Juan Pablo Huffman MD Hepatobiliary Scan Nuclear Medicine 06/28/17 0900 Signed Impressions: Service Date/Time: Wednesday, June 28, 2017 10:17 - CONCLUSION: Nonspecific persistent distention of the gallbladder. No evidence of acute cholecystitis or biliary obstruction. Christopher Gutierrez MD Lung Scan-VQ Nuclear Medicine 06/24/17 0000 Signed Impressions: Service Date/Time: Saturday, June 24, 2017 12:21 - CONCLUSION: 1. Low probability of pulmonary embolism Jose Richard MD Head Magnetic Resonance Angiography 06/24/17 0000 Signed Impressions: Service Date/Time: Saturday, June 24, 2017 13:37 - CONCLUSION: Negative for major branch vessels obstruction in spite of MRI findings. Rudy Meng MD FACR Brain MRI 06/24/17 0000 Signed Impressions: Service Date/Time: Saturday, June 24, 2017 13:37 - CONCLUSION: Findings consistent with acute infarct left sylvian region anteriorly without hemorrhage. Rudy Meng MD FACR Carotid Artery Ultrasound 06/22/17 0000 Signed Impressions: Service Date/Time: Thursday, June 22, 2017 15:56 - CONCLUSION: No evidence of flow-limiting carotid stenosis. Christopher Leonardo MD Abdomen Ultrasound 06/22/17 0000 Signed Impressions: Service Date/Time: Thursday, June 22, 2017 16:30 - CONCLUSION: Distended gallbladder with wall thickening and internal debris. Mild calyceal dilatation involving the kidneys bilaterally Christopher Leonardo MD Objective Remarks GENERAL: This is a well-nourished, well-developed patient, in no apparent distress. CARDIOVASCULAR: Regular rate and regular rhythm without murmurs, gallops, or rubs. RESPIRATORY: Clear to auscultation. Breath sounds equal bilaterally. No wheezes , rales, or rhonchi. GASTROINTESTINAL: Abdomen soft, non-tender, nondistended. Normal, active bowel sounds- some drainage from the site of PEG. MUSCULOSKELETAL: Extremities without clubbing, cyanosis, or edema. NEURO: Alert & Oriented x4 to person, place, time, situation. Moves all ext x4 Procedures PEG tube insertion. Medications and IVs Current Medications Propofol 100 ml @ As Directed STK-MED ONCE .ROUTE Last administered on 12:43; Start 06/22/17 at 12:25; Stop 06/22/17 at 12:26; Status DC IV Flush (NS Flush) 2 ml UNSCH PRN IV FLUSH FLUSH AFTER USING IV ACCESS; Start 06/22/17 at 12:30; Stop 06/22/17 at 15:32; Status DC Sodium Chloride 1,000 ml @ 1,000 mls/hr Q1H IV Last administered on 06/22/17 12:43; Start 06/22/17 at 12:25; Stop 06/22/17 at 13:24; Status DC Etomidate (Amidate Inj) 20 mg ONCE ONCE IVP Last administered on 06/22/17 12: 44; Start 06/22/17 at 12:30; Stop 06/22/17 at 12:34; Status DC Albuterol/ Ipratropium (Duoneb Neb) 1 ampule Q15M INH Last administered on 06/22 13:16; Start 06/22/17 at 12:30; Stop 06/22/17 at 13:01; Status DC Sodium Chloride (NS Flush) 2 ml UNSCH PRN IVF FLUSH AFTER USING IV ACCESS Last administered on 06/22/17 12:44; Start 06/22/17 at 12:30; Stop 06/22/17 at 15:32 ; Status DC Sodium Chloride 1,000 ml @ 999 mls/hr Q1H1M IV Last administered on 06/22/17 12:56; Start 06/22/17 at 12:45; Stop 06/22/17 at 13:45; Status DC Sodium Chloride 1,000 ml @ 999 mls/hr Q1H1M IV Last administered on 06/22/17 12:56; Start 06/22/17 at 12:45; Stop 06/22/17 at 13:45; Status DC Methylprednisolone Sodium Succinate (SoluMEDROL INJ) 125 mg ONCE ONCE IV PUSH Last administered on 06/22/17 12:56; Start 06/22/17 at 12:45; Stop 06/22/17 at 12:46; Status DC Hydromorphone HCl (Dilaudid Pf Inj) 0.5 mg ONCE ONCE IV PUSH Last administered on 06/22/17 12:56; Start 06/22/17 at 12:45; Stop 06/22/17 at 12:46 ; Status DC Succinylcholine Chloride (Quelicin Inj) 200 mg STK-MED ONCE .ROUTE Last administered on 06/22/17 12:20; Start 06/22/17 at 13:15; Stop 06/22/17 at 13:16 ; Status DC Vancomycin HCl 850 mg/Sodium Chloride 258.5 ml @ 250 mls/hr ONCE ONCE IV Last administered on 06/22/17 16:06; Start 06/22/17 at 15:15; Stop 06/22/17 at 16:17; Status DC Cefepime HCl 1000 mg/Sodium Chloride 100 ml @ 200 mls/hr ONCE ONCE IV Last administered on 06/22/17 15:08; Start 06/22/17 at 15:15; Stop 06/22/17 at 15:46 ; Status DC Sodium Chloride 1,000 ml @ 84 mls/hr [id number] IV Last administered on 03:06; Start 06/22/17 at 15:09; Stop 06/23/17 at 07:25; Status DC Sodium Chloride (NS Flush) 2 ml UNSCH PRN IV FLUSH FLUSH AFTER USING IV ACCESS Last administered on 07/11/17 06:10; Start 06/22/17 at 15:15 Sodium Chloride (NS Flush) 2 ml BID IV FLUSH Last administered on 08/08/17 08 :33; Start 06/22/17 at 21:00 Acetaminophen (Tylenol) 650 mg Q6H PRN PO PAIN 1-10 AND/OR FEVER >101F; Start 06/22/17 at 15:15; Stop 06/23/17 at 07:23; Status DC Famotidine (Pepcid Inj) 10 mg Q12HR IV PUSH Last administered on 06/26/17 20:36 ; Start 06/22/17 at 21:00; Stop 06/26/17 at 22:58; Status DC Lorazepam (Ativan Inj) 1 mg Q1H PRN IV Agitation/Sedation Last administered on 06/30/17 07:50; Start 06/22/17 at 15:15; Stop 06/30/17 at 12:29; Status DC Artificial Tears (Tears Naturale Opth Soln) 1 drop TID EACH EYE Last administered on 08/06/17 08:52; Start 06/22/17 at 18:00 Ondansetron HCl (Zofran Inj) 4 mg Q6H PRN IV NAUSEA OR VOMITING; Start at 15:15 Albuterol/ Ipratropium (Duoneb Neb) 1 ampule Q6HR NEB INH Last administered on 06/26/17 15:29; Start 06/22/17 at 16:00; Stop 06/26/17 at 15:59; Status DC Albuterol Sulfate (Albuterol Neb) 2.5 mg Q2HR NEB PRN INH SOB/WHEEZING Last administered on 07/09/17 11:13; Start 06/22/17 at 15:15; Stop 07/09/17 at 14:25 ; Status DC Heparin Sodium (Porcine) (Heparin Inj) 5,000 units Q12H SQ Last administered on 06/29/17 14:38; Start 06/22/17 at 15:15; Status Future Hold Miscellaneous Information 1 [id number] Last administered on 06/22/17 15:15; Start 06/22/17 at 15:15 Chlorhexidine Gluconate (Chlorhexidine 2% Cloth) Taper DAILY@04 TOP Last administered on 07/19/17 04:00; Start 06/23/17 at 04:00; Stop 06/19/18 at 03:59 Chlorhexidine Gluconate (Chlorhexidine 2% Cloth) 3 pack UNSCH PRN TOP HYGIENIC CARE; Start 06/22/17 at 15:15 Senna/Docusate Sodium (Indy-Colace) 1 tab BID PO Last administered on 06/29/17 22:42; Start 06/22/17 at 21:00; Stop 06/30/17 at 11:09; Status DC Magnesium Hydroxide (Milk Of Magnesia Liq) 30 ml Q12H PRN PO MILD - MODERATE CONSTIPATION; Start 06/22/17 at 15:15 Sennosides (Senokot) 17.2 mg Q12H PRN PO MODERATE - SEVERE CONSTIPATION; Start 06/22/17 at 15:15 Bisacodyl (Dulcolax Supp) 10 mg DAILY PRN RECTAL SEVERE CONSITIPATION Last administered on 07/24/17 08:28; Start 06/22/17 at 15:15 Lactulose (Lactulose Liq) 30 ml DAILY PRN PO SEVERE CONSITIPATION; Start at 15:15 Chlorhexidine Gluconate (Peridex 0.12% Liq) 15 ml BID@08,20 MT Last administered on 08/03/17 08:00; Start 06/22/17 at 20:00 Propofol 100 ml @ 1.65 mls/hr TITRATE PRN IV SEDATION; Start 06/22/17 at 15:15 ; Stop 06/23/17 at 17:57; Status DC Fentanyl Citrate 250 ml @ 5 mls/hr TITRATE PRN IV SEDATION; Start 06/22/17 at 15:15; Stop 06/27/17 at 13:02; Status DC IV Flush (NS Flush) 2 ml BID IV FLUSH ; Start 06/22/17 at 21:00; Status UNV IV Flush (NS Flush) 2 ml UNSCH PRN IV FLUSH FLUSH AFTER USING IV ACCESS; Start 06/22/17 at 15:45; Status UNV Labetalol HCl (Trandate Inj) 10 mg Q2H PRN IV For SBP > 220 or DBP > 120; Start 06/22/17 at 15:45 Nicardipine HCl 25 mg/Sodium Chloride 260 ml @ 52 mls/hr TITRATE PRN IV Maintain BP goal; Start 06/22/17 at 16:00; Status Future Hold Aspirin (Aspirin Chew) 81 mg DAILY PO Last administered on 08/08/17 08:34; Start 06/23/17 at 09:00; Status Future hold Insulin Aspart (NovoLOG SUPPLEMENTAL SCALE) 1 ACHS SQ Last administered on 06/22 16:54; Start 06/22/17 at 16:00; Stop 06/23/17 at 07:23; Status DC Dextrose (D50w (Vial) Inj) 50 ml UNSCH PRN IV PUSH HYPOGLYCEMIA-SEE COMMENTS; Start 06/22/17 at 15:45 Glucagon (Glucagon Inj) 1 mg UNSCH PRN OTHER HYPOGLYCEMIA-SEE COMMENTS; Start 06/22/17 at 15:45 Piperacillin Sod/ Tazobactam Sod 50 ml @ 100 mls/hr Q6H IV Last administered on 06/29/17 05:17; Start 06/22/17 at 17:00; Stop 06/29/17 at 08:00; Status DC Lactulose (Lactulose Liq) 30 ml QID PO Last administered on 06/29/17 22:42; Start 06/22/17 at 18:00; Stop 07/01/17 at 15:26; Status DC Propofol 100 ml @ 1.65 mls/hr TITRATE PRN IV Ordered RASS Last administered on 06/28/17 05:59; Start 06/22/17 at 17:15; Stop 06/29/17 at 07:21; Status DC Calcium Gluconate 2 gm/Sodium Chloride 120 ml @ 120 mls/hr ONCE ONCE IV Last administered on 06/23/17 05:32; Start 06/23/17 at 06:00; Stop 06/23/17 at 06:59 ; Status DC Insulin Aspart (NovoLOG SUPPLEMENTAL SCALE) 1 Q6HR SQ Last administered on 06:16; Start 06/23/17 at 12:00; Stop 07/05/17 at 16:27; Status DC Sodium Chloride 1,000 ml @ 999 mls/hr BOLUS ONCE IV Last administered on 06/23 08:49; Start 06/23/17 at 08:00; Stop 06/23/17 at 09:00; Status DC Sodium Bicarbonate 100 meq/Sterile Water 950 ml @ 110 mls/hr Q8H39M IV Last administered on 06/24/17 02:48; Start 06/23/17 at 07:30; Stop 06/24/17 at 09:10; Status DC Potassium Chloride (KCl Powder) 40 meq ONCE ONCE PO Last administered on 06:45; Start 06/24/17 at 06:45; Stop 06/24/17 at 06:46; Status DC Sodium Phosphate 15 mmol/Sodium Chloride 155 ml @ 38.75 mls/ hr ONCE ONCE IV Last administered on 06/24/17 08:27; Start 06/24/17 at 08:00; Stop 06/24/17 at 11: 59; Status DC Water (Free Water) VOLUME: 200 ML Q4HR G-TUBE Last administered on 07/02/17 16: 00; Start 06/24/17 at 12:00; Stop 07/05/17 at 10:15; Status DC Sodium Chloride 1,000 ml @ 999 mls/hr BOLUS ONCE IV Last administered on 10:41; Start 06/24/17 at 09:15; Stop 06/24/17 at 10:15; Status DC Metoprolol Tartrate (Lopressor) 12.5 mg Q12HR PO Last administered on 06/27/17 20:02; Start 06/24/17 at 21:00; Stop 06/29/17 at 07:55; Status DC Miscellaneous (Pill Splitter) 1 ea UNSCH PRN OTHER SEE LABEL COMMENTS; Start at 15:00 Pharmacy Profile Note 0 ml @ 0 mls/hr UNSCH OTHER ; Start 06/24/17 at 22:30; Stop 06/27/17 at 13:12; Status DC Vancomycin HCl 1000 mg/Sodium Chloride 250 ml @ 250 mls/hr ONCE ONCE IV Last administered on 06/24/17 22:46; Start 06/24/17 at 22:30; Stop 06/24/17 at 23:29; Status DC Potassium Phosphate 30 mmol/ Sodium Chloride 260 ml @ 43.333 mls/ hr ONCE ONCE IV Last administered on 06/25/17 11:00; Start 06/25/17 at 11:00; Stop at 16:59; Status DC Vancomycin HCl 1000 mg/Sodium Chloride 250 ml @ 250 mls/hr Q24H IV Last administered on 06/27/17 06:11; Start 06/26/17 at 02:00; Stop 06/27/17 at 09:08; Status DC Miscellaneous Information SPECIFIC LAB TO BE DRAWN: VANCO TROUGH DATE... ONCE ONCE .XX ; Start 06/27/17 at 01:45; Stop 06/27/17 at 01:46; Status DC Lisinopril (Prinivil) 5 mg DAILY OG-TUBE Last administered on 06/28/17 08:00; Start 06/27/17 at 09:00; Stop 06/28/17 at 08:48; Status DC Potassium Chloride (KCl Powder) 30 meq ONCE ONCE NG Last administered on 9/3/ 17at 14:00; Start 06/26/17 at 14:00; Stop 06/26/17 at 14:01; Status DC Pantoprazole Sodium (Protonix Inj) 40 mg Q12H IV PUSH Last administered on 10:37; Start 06/26/17 at 23:00; Stop 06/27/17 at 13:02; Status DC Vancomycin HCl 1000 mg/Sodium Chloride 250 ml @ 250 mls/hr Q18H IV ; Start 06/28 at 00:00; Stop 06/28/17 at 00:00; Status DC Miscellaneous Information SPECIFIC LAB TO BE ... ONCE ONCE .XX ; Start at 11:45; Stop 06/29/17 at 11:46; Status Cancel Levofloxacin/ Dextrose 150 ml @ 100 mls/hr Q24H IV Last administered on 14:04; Start 06/27/17 at 14:00; Stop 07/15/17 at 15:55; Status DC Pantoprazole Sodium 80 mg/ Sodium Chloride 100 ml @ 10 mls/hr Q10H IV Last administered on 06/28/17 22:58; Start 06/27/17 at 16:00; Stop 06/29/17 at 07:21; Status DC Potassium Chloride 100 ml @ 50 mls/hr Q2H PRN IV For Potassium 2.8 - 3.2 mEq/L ; Start 06/28/17 at 03:30; Stop 06/30/17 at 12:31; Status DC Potassium Chloride 100 ml @ 50 mls/hr Q2H PRN IV For Potassium 2.8 - 3.2 mEq/L ; Start 06/28/17 at 03:30; Stop 06/30/17 at 12:31; Status DC Potassium Bicarb/ Potassium Chloride (K-Lyte Cl Eff) 50 meq UNSCH PRN PO For Potassium 3.3 - 3.5 mEq/L; Start 06/28/17 at 03:30; Stop 06/30/17 at 12:31; Status DC Potassium Chloride 100 ml @ 25 mls/hr UNSCH PRN IV For Potassium 3.3 - 3.5 mEq /L; Start 06/28/17 at 03:30; Stop 06/30/17 at 12:31; Status DC Potassium Chloride 100 ml @ 50 mls/hr Q2H PRN IV For Potassium 3.3 - 3.5 mEq/ L Last administered on 06/28/17 07:10; Start 06/28/17 at 03:30; Stop 06/30/17 at 12:31; Status DC Magnesium Sulfate 4 gm/Sodium Chloride 100 ml @ 50 mls/hr UNSCH PRN IV For Magnesium 0.9 - 1.1 mg/dL; Start 06/28/17 at 03:30; Stop 06/30/17 at 12:31; Status DC Magnesium Oxide (Mag-Ox) 800 mg UNSCH PRN PO For Magnesium 1.2 - 1.6 mg/dL; Start 06/28/17 at 03:30; Stop 06/30/17 at 12:31; Status DC Magnesium Sulfate 2 gm/Sodium Chloride 100 ml @ 50 mls/hr UNSCH PRN IV For Magnesium 1.2 - 1.6 mg/dL; Start 06/28/17 at 03:30; Stop 06/30/17 at 12:31; Status DC Potassium Phosphate (K-Phos) 2,000 mg Q4H PRN PO For Phosphorus < 2.5 mg/dL; Start 06/28/17 at 03:30; Stop 06/30/17 at 12:31; Status DC Sodium Phosphate 30 mmol/Sodium Chloride 250 ml @ 42 mls/hr UNSCH PRN IV For Phosphorus < 2.5 mg/dL; Start 06/28/17 at 03:30; Stop 06/30/17 at 12:31; Status DC Potassium Phosphate (K-Phos) 2,000 mg UNSCH PRN PO/TUBE SEE LABEL COMMENTS; Start 06/28/17 at 03:30; Stop 06/30/17 at 12:31; Status DC Potassium Phosphate 30 mmol/ Sodium Chloride 260 ml @ 42 mls/hr UNSCH PRN IV SEE LABEL COMMENTS; Start 06/28/17 at 03:30; Stop 06/30/17 at 12:31; Status DC Lisinopril (Prinivil) 10 mg DAILY OG-TUBE ; Start 06/28/17 at 10:00; Stop at 13:47; Status DC Potassium Chloride/Sodium Chloride 1,000 ml @ 84 mls/hr [id number] IV Last administered on 06/28/17 13:22; Start 06/28/17 at 13:00; Stop 06/28/17 at 21:10; Status DC Aspirin (Aspirin Supp) 300 mg DAILY RECTAL Last administered on 06/29/17 09:20 ; Start 06/29/17 at 09:00; Stop 07/01/17 at 15:26; Status DC Dexamethasone Sodium Phosphate (Decadron Inj) 6 mg NOW ONCE IV Last administered on 06/28/17 21:55; Start 06/28/17 at 21:15; Stop 06/28/17 at 21:16; Status DC Dexamethasone Sodium Phosphate (Decadron Inj) 6 mg Q6H IV Last administered on 06/30/17 02:49; Start 06/29/17 at 03:00; Stop 06/30/17 at 03:01; Status DC Pantoprazole Sodium (Protonix Inj) 40 mg Q12H IV PUSH Last administered on 07/17 08:36; Start 06/29/17 at 08:00; Stop 07/17/17 at 09:44; Status DC Metoprolol Tartrate (Lopressor) 25 mg Q8HR PO Last administered on 08/07/17 13:22; Start 06/29/17 at 14:00 Hydralazine HCl (Apresoline Inj) 20 mg Q4H PRN IV PUSH SBP >160; Start 06/29/17 at 08:00; Stop 06/30/17 at 20:50; Status DC Haloperidol Lactate (Haldol Inj) 5 mg Q6H PRN IM AGITATION Last administered on 07/01/17 21:23; Start 06/30/17 at 12:30 Dextrose/Sodium Chloride 1,000 ml @ 100 mls/hr Q10H IV Last administered on 09:00; Start 06/30/17 at 13:00; Stop 07/01/17 at 15:26; Status DC Albuterol/ Ipratropium (Duoneb Neb) 1 ampule Q4HR NEB NEB Last administered on 07/04/17 08:31; Start 06/30/17 at 12:30; Stop 07/04/17 at 12:29; Status DC Morphine Sulfate (Morphine Inj) 2 mg Q3H PRN IV PUSH PAIN GREATER THAN 5 Last administered on 07/17/17 09:04; Start 06/30/17 at 12:30; Stop 07/17/17 at 09:44 ; Status DC Enalaprilat (Vasotec Inj) 2.5 mg Q6H PRN IV PUSH SBP > 160 Last administered on 07/14/17 12:10; Start 06/30/17 at 21:00 Lactulose (Lactulose Liq) 30 ml BID PO Last administered on 07/18/17 09:52; Start 07/01/17 at 21:00; Stop 07/18/17 at 11:37; Status DC Potassium Chloride 100 ml @ 50 mls/hr Q2H IV Last administered on 07/02/17 21: 31; Start 07/02/17 at 17:30; Stop 07/02/17 at 21:29; Status DC Magnesium Oxide (Mag-Ox) 400 mg ONCE ONCE PO Last administered on 07/02/17 16: 48; Start 07/02/17 at 16:15; Stop 07/02/17 at 16:16; Status DC Rifaximin (Xifaxan) 550 mg BID PO Last administered on 08/08/17 08:34; Start 07/03/17 at 09:00 Potassium Bicarb/ Potassium Chloride (K-Lyte Cl Eff) 75 meq ONCE ONCE PO ; Start 07/03/17 at 14:15; Stop 07/03/17 at 14:15; Status DC Potassium Chloride 100 ml @ 50 mls/hr Q2H IV Last administered on 07/03/17 23 :12; Start 07/03/17 at 15:00; Stop 07/03/17 at 18:59; Status DC Potassium Bicarbonate (Effer-K Eff) 75 meq ONCE ONCE PO Last administered on 14:52; Start 07/03/17 at 15:00; Stop 07/03/17 at 15:01; Status DC Potassium Bicarbonate (Effer-K Eff) 25 meq ONCE ONCE PO Last administered on 12:00; Start 07/05/17 at 10:15; Stop 07/05/17 at 10:17; Status DC Lisinopril (Prinivil) 10 mg DAILY PO Last administered on 08/08/17 08:34; Start 07/07/17 at 09:00 Lisinopril (Prinivil) 10 mg ONCE ONCE PO Last administered on 07/06/17 14:00 ; Start 07/06/17 at 14:00; Stop 07/06/17 at 14:01; Status DC Furosemide (Lasix Inj) 40 mg ONCE ONCE IV PUSH Last administered on 07/08/17 03:30; Start 07/08/17 at 04:30; Stop 07/08/17 at 04:31; Status DC Cefazolin Sodium (Ancef Inj) 1,000 mg ONCE ONCE IV Last administered on 13:04; Start 07/08/17 at 13:03; Stop 07/08/17 at 13:04; Status DC Propofol (Diprivan 200 Mg/20 ml Inj) 120 mg STK-MED ONCE IV ; Start 07/08/17 at 11:53; Stop 07/08/17 at 13:05; Status DC Albuterol/ Ipratropium (Duoneb Neb) 1 ampule ONCE ONCE NEB ; Start 07/09/17 at 14:30; Stop 07/09/17 at 14:31; Status Cancel Albuterol/ Ipratropium (Duoneb Neb) 1 ampule Q2HR NEB PRN NEB SOB/WHEEZING Last administered on 08/07/17 19:13; Start 07/09/17 at 14:00 Albuterol/ Ipratropium (Duoneb Neb) 1 ampule Q6HR WHILE AWAKE NEB NEB Last administered on 07/13/17 08:44; Start 07/09/17 at 14:00; Stop 07/13/17 at 13:59 ; Status DC Amoxicillin/ Clavulanate Potassium (Augmentin) 875 mg Q12HR PO Last administered on 07/16/17 08:19; Start 07/09/17 at 14:00; Stop 07/16/17 at 13:59 ; Status DC Lactobacillus Acidophilus (Lactinex Pkt) 1 gm BID PO Last administered on 08/08 08:34; Start 07/09/17 at 21:00 Methylprednisolone Sodium Succinate (SoluMEDROL INJ) 40 mg ONCE ONCE IV PUSH Last administered on 07/09/17 17:06; Start 07/09/17 at 14:00; Stop 07/09/17 at 14:24; Status DC Potassium Chloride (KCl Powder) 60 meq ONCE ONCE PO Last administered on 13:49; Start 07/10/17 at 10:30; Stop 07/10/17 at 10:31; Status DC Potassium Phosphate (K-Phos) 500 mg ONCE ONCE PO Last administered on 12:29; Start 07/10/17 at 10:30; Stop 07/10/17 at 10:31; Status DC Magnesium Oxide (Mag-Ox) 400 mg ONCE ONCE PO Last administered on 07/10/17 12 :29; Start 07/10/17 at 10:30; Stop 07/10/17 at 10:31; Status DC Potassium Phosphate (K-Phos) 500 mg ONCE ONCE PO Last administered on 12:44; Start 07/11/17 at 11:15; Stop 07/11/17 at 11:32; Status DC Potassium Bicarb/ Potassium Chloride (K-Lyte Cl Eff) 25 meq ONCE ONCE PO Last administered on 07/13/17 14:47; Start 07/13/17 at 12:00; Stop 07/13/17 at 12:01; Status DC Hydralazine HCl (Apresoline) 10 mg Q6HR PRN PO SBP>160, DBP>90; Start 07/14/17 at 15:45 Pantoprazole Sodium (Protonix) 40 mg Q12HR PO Last administered on 08/08/17 08:34; Start 07/17/17 at 21:00 Oxycodone/ Acetaminophen (Percocet 7.5-325 Mg) 1 tab Q4H PRN PO pain>5 Last administered on 08/08/17 08:35; Start 07/17/17 at 09:45 Lactulose (Lactulose Liq) 30 ml DAILY PO Last administered on 08/08/17 08:34 ; Start 07/19/17 at 09:00 Temazepam (Restoril) 15 mg HS PRN PO INSOMNIA Last administered on 08/07/17 21:25; Start 07/18/17 at 14:00 Pneumococcal Polyvalent Vaccine (Pneumovax-23 Inj) 25 mcg ONCE ONCE IM ; Start 07/20/17 at 10:00; Stop 07/20/17 at 10:01; Status Cancel Influenza Virus Vaccine (Flu (Quadrivalent) Vaccine Inj) 0.5 ml ONCE ONCE IM ; Start 07/20/17 at 10:00; Stop 07/20/17 at 10:01; Status Cancel Influenza Virus Vaccine (Flu (Quadrivalent) Vaccine Inj) 0.5 ml ONCE ONCE IM Last administered on 07/19/17 11:00; Start 07/19/17 at 09:00; Stop 07/19/17 at 09:01; Status DC Pneumococcal Polyvalent Vaccine (Pneumovax-23 Inj) 25 mcg ONCE ONCE IM ; Start 07/18/17 at 19:15; Stop 07/18/17 at 19:15; Status DC Pneumococcal Polyvalent Vaccine (Pneumovax-23 Inj) 25 mcg ONCE ONCE IM Last administered on 07/19/17 09:23; Start 07/19/17 at 09:00; Stop 07/19/17 at 09:01 ; Status DC IV Flush (NS Flush) 5 ml UNSCH PRN IV FLUSH FLUSH AFTER USING IV ACCESS; Start 07/25/17 at 11:15 Zolpidem Tartrate (Ambien) 5 mg HS PRN PO INSOMNIA Last administered on 22:53; Start 08/02/17 at 11:15 Guaifenesin/ Dextromethorphan (Robitussin Dm 200-20 Mg/10 ml Liq) 10 ml Q6H PRN PO cough ; Start 08/06/17 at 14:15 Diatrizoate Meglum/ Diatrizoate Sod ( Gastroview Liq) 18 ml ONCE ONCE PO Last administered on 08/07/17 16:19; Start 08/07/17 at 16:30; Stop 08/07/17 at 16:31; Status DC A/P Problem List: (1) Thrombocytopenia ICD Code: D69.6 - Thrombocytopenia, unspecified (2) Polycythemia ICD Code: D75.1 - Secondary polycythemia (3) CVA (cerebral vascular accident) ICD Code: I63.9 - Cerebral infarction, unspecified (4) Stroke ICD Code: I63.9 - Cerebral infarction, unspecified Status: Acute (5) Incontinence ICD Code: R32 - Unspecified urinary incontinence (6) Cystitis ICD Code: N30.90 - Cystitis, unspecified without hematuria Assessment and Plan A/P CVA , with expressive aphasia and right hemiparesis, dysphagia. Continue with aspirin LDL 36 therefore statin is not indicated PT/OT/speech therapy Appreciate input from neurology Continue current treatment Possible aspiration pneumonia-treated. s/p Augmentin 07/16/17 Hyperammonemia-resolved Continue lactulose daily Monitor ammonia level accordingly Acute hypoxemic respiratory failure Resolved Continue with DuoNeb when necessary and maintain oxygen saturation above 92% Hypertension Cardiomyopathy 2-D echo revealed LVEF of 45%. Continue beta marilou. PRN antihypertensives Appreciate input from cardiology who signed off Dysphagia PEG has been removed. diet per ST. drainage from the site of PEG/ low grade fever CT of the abdomen pending. GI following. History of chronic of chronic benzodiazepine use Advised on cessation Upper GI bleed Elevated transaminases Elevated ammonia Hypoalbuminemia Hepatitis C antibody positive Rectal bleeding Currently on Protonix Appreciate input from GI who signed off s/p EGD with gastritis and esophagitis. HIDA scan 06/28 with distended gallbladder-no evidence of acute cholecystitis s/p PEG placement / removal History of incontinence Resolved Acute kidney injury Resolved Thrombocytopenia resolved. insomnia; ambien as needed. Prophylaxis - GI - PO Protonix - DVT - SCD/heparin subcutaneous on hold due to GI bleed. Discharge Planning awaiting placement- pending SSI. Problem Qualifiers (1) CVA (cerebral vascular accident): Qualified Codes: I63.9 - Cerebral infarction, unspecified (2) Stroke: Qualified Codes: I63.9 - Cerebral infarction, unspecified (3) Incontinence: Qualified Codes: R32 - Unspecified urinary incontinence Madhu Villaseñor MD Aug 08, 2017 10:42
[2017-08-08] MEDS ORDERED: IOHEXOL 350 MG/ML 10 ML VIAL (for RAD DIAG) IVCONTRAST ONE ×2 (11:23)
--- NOTE | 2017-08-08 12:34 | RADRPT ---
EXAM DATE/TIME: 08/08/2017 11:16 [place] COMPARISON: No previous studies available for comparison. INDICATIONS : Right upper quadrant tenderness around peg tube insertion site, peg tube removed yesterday IV CONTRAST: 72 cc Omnipaque 350 (iohexol) IV ORAL CONTRAST: Prescribed oral contrast ingested. RADIATION DOSE: 9.96 CTDIvol (mGy) MEDICAL HISTORY : None SURGICAL HISTORY : Hysterectomy. ENCOUNTER: Initial ACUITY: 2 days PAIN SCALE: 4/10 LOCATION: Right upper quadrant TECHNIQUE: Volumetric scanning of the abdomen and pelvis was performed. Using automated exposure control and ad justment of the mA and/or kV according to patient size, radiation dose was kept as low as reasonably achievable to obtain optimal diagnostic quality images. DICOM format image data is available electro nically for review and comparison. FINDINGS: Minimal airspace disease is present in both lung bases. 1 cm nodule present right lower lobe incomple tely evaluated on today's exam. The liver and spleen are unremarkable. The pancreas, adrenals and kidneys appear normal. There is a PEG tube site in the abdominal wall with direct medication of the stomach to the abdominal wall. This peg site has not closed. There is associated induration in the abdominal wall as well. Lower abdomen is unremarkable In the pelvis there are scattered diverticuli without diverticulitis. There is no free fluid. Review of bone windows reveals degenerative changes in the lower lumbar spine. CONCLUSION: PEG tube site remains patent from stomach to the anterior abdominal wall with induration in the rectu s. Patchy airspace disease in both lungs. Rudy Meng MD FACR on August 08, 2017 at 12:28 Board Certified Radiologist. This report was verified electronically.
[2017-08-08] MEDS: RESP: ALBUTEROL 2.5 MG/IPRATROPIUM 0.5 MG NEB (PRN) NEB ×2 (18:22)
[2017-08-08] MEDS: TEMAZEPAM 15 MG CAP PO PRN ×2 (23:42)
[2017-08-09 00:45] VITALS: BP 100/61; PULSE 100; RESP 19; TEMP 97.8; O2SAT 97
[2017-08-09] MEDS: oxyCODONE/ACETAMINOPHEN 7.5 MG/325 MG TAB PO PRN ×10 (02:02→20:38)
[2017-08-09] MEDS: CHLORHEXIDINE GLUCONATE 2 % 1 PACK (2 CLOTHS) TOP SCH ×2 (04:00)
[2017-08-09 06:00] VITALS: BP 99/65; PULSE 96; RESP 18; TEMP 98.4; O2SAT 97
[2017-08-09] MEDS: METOPROLOL TARTRATE 25 MG TAB PO SCH ×6 (06:00→20:34)
[2017-08-09] MEDS: CHLORHEXIDINE 0.12% (ORAL KIT) 15 ML CUP MT SCH ×4 (08:29→20:00)
[2017-08-09 08:32] VITALS: BP 100/66; PULSE 99; RESP 20; TEMP 98.1; O2SAT 95
[2017-08-09] MEDS: RIFAXIMIN 550 MG TAB PO SCH ×4 (09:03→20:34)
[2017-08-09] MEDS: LISINOPRIL 10 MG TAB PO SCH ×2 (09:04)
[2017-08-09] MEDS: ARTIFICIAL TEARS OPTH SOLN 15 ML BTL EACH EYE SCH ×6 (09:05→18:28)
[2017-08-09] MEDS: ASPIRIN 81 MG CHEW TAB PO SCH ×2 (09:05)
[2017-08-09] MEDS: PANTOPRAZOLE SOD 40 MG DELAYED RELEASE TAB PO SCH ×4 (09:05→20:34)
[2017-08-09] MEDS: LACTOBACILLUS ACIDOPHILUS 1 GM PACKET PO SCH ×4 (09:05→20:34)
[2017-08-09] MEDS: LACTULOSE SYRUP 20 GM/30 ML CUP PO SCH ×2 (09:05)
[2017-08-09] MEDS: SODIUM CHLORIDE 0.9% FLUSH 10 ML FLUSH IV FLUSH SCH ×4 (09:05→20:34)
--- NOTE | 2017-08-09 10:02 | HHI.PR ---
Subjective Remarks in no acute distress. abdominal pain is better. no nausea or vomiting. no fever. Objective Vitals Vital Signs Date Time Temp Pulse Resp B/P (MAP) Pulse Ox O2 Delivery O2 Flow Rate FiO2 08/09/17 09:15 97 Room Air 08/09/17 08:32 98.1 99 20 100/66 (77) 95 08/09/17 06:00 98.4 96 18 99/65 (76) 97 08/09/17 03:02 18 08/09/17 02:26 97 Nasal Cannula 2.00 08/09/17 00:45 97.8 100 19 100/61 (74) 97 08/08/17 23:37 98.1 96 18 98/60 (73) 95 08/08/17 22:01 94 Nasal Cannula 2.00 08/08/17 20:20 98.7 94 18 87/50 (62) 96 08/08/17 16:49 98.5 98 20 101/56 (71) 94 08/08/17 12:31 98.7 115 20 109/63 (78) 95 I/O 08/08/17 08/08/17 08/08/17 08/09/17 08/09/17 08/09/17 07:00 15:00 23:00 07:00 15:00 23:00 Intake Total 940 ml 2500 ml Balance 940 ml 2500 ml Intake Oral 940 ml 2500 ml # Voids 2 5 2 4 # Bowel Movements 1 0 Result Diagram: 08/06/17 1615 Imaging Last Impressions Abdomen/Pelvis CT 08/08/17 0000 Signed Impressions: Service Date/Time: Tuesday, August 08, 2017 11:16 - CONCLUSION: PEG tube site remains patent from stomach to the anterior abdominal wall with induration in the rectus. Patchy airspace disease in both lungs. Rudy Meng MD FACR Abdomen X-Ray 08/06/17 0000 Signed Impressions: Service Date/Time: Sunday, August 06, 2017 00:36 - CONCLUSION: PEG tube overlying the left lower abdomen. Christopher Sarmiento MD Modified Barium Swallow 07/19/17 0000 Signed Impressions: Service Date/Time: Wednesday, July 19, 2017 00:00 - CONCLUSION: Penetration and aspiration as above within liquids, penetration with nectar thick consistency. Jude Braxton MD Chest X-Ray 07/09/17 0000 Signed Impressions: Service Date/Time: Sunday, July 09, 2017 14:04 - CONCLUSION: 1. Stable mild central bibasilar patchy airspace disease. 2. No significant interval change. Gustavo Santoro MD Head CT 07/06/17 0000 Signed Impressions: Service Date/Time: Thursday, July 06, 2017 09:07 - CONCLUSION: 1. 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 2. Mucous retention cyst within left maxillary and right sphenoid sinuses. Juan Pablo Huffman MD Hepatobiliary Scan Nuclear Medicine 06/28/17 0900 Signed Impressions: Service Date/Time: Wednesday, June 28, 2017 10:17 - CONCLUSION: Nonspecific persistent distention of the gallbladder. No evidence of acute cholecystitis or biliary obstruction. Christopher Gutierrez MD Lung Scan-VQ Nuclear Medicine 06/24/17 0000 Signed Impressions: Service Date/Time: Saturday, June 24, 2017 12:21 - CONCLUSION: 1. Low probability of pulmonary embolism Jose Richard MD Head Magnetic Resonance Angiography 06/24/17 0000 Signed Impressions: Service Date/Time: Saturday, June 24, 2017 13:37 - CONCLUSION: Negative for major branch vessels obstruction in spite of MRI findings. Rudy Meng MD FACR Brain MRI 06/24/17 0000 Signed Impressions: Service Date/Time: Saturday, June 24, 2017 13:37 - CONCLUSION: Findings consistent with acute infarct left sylvian region anteriorly without hemorrhage. Rudy Meng MD FACR Carotid Artery Ultrasound 06/22/17 0000 Signed Impressions: Service Date/Time: Thursday, June 22, 2017 15:56 - CONCLUSION: No evidence of flow-limiting carotid stenosis. Christopher Leonardo MD Abdomen Ultrasound 06/22/17 0000 Signed Impressions: Service Date/Time: Thursday, June 22, 2017 16:30 - CONCLUSION: Distended gallbladder with wall thickening and internal debris. Mild calyceal dilatation involving the kidneys bilaterally Christopher Leonardo MD Objective Remarks GENERAL: This is a well-nourished, well-developed patient, in no apparent distress. CARDIOVASCULAR: Regular rate and regular rhythm without murmurs, gallops, or rubs. RESPIRATORY: Clear to auscultation. Breath sounds equal bilaterally. No wheezes , rales, or rhonchi. GASTROINTESTINAL: Abdomen soft, non-tender, nondistended. Normal, active bowel sounds- some drainage from the site of PEG. MUSCULOSKELETAL: Extremities without clubbing, cyanosis, or edema. NEURO: Alert & Oriented x4 to person, place, time, situation. Moves all ext x4 Procedures PEG tube insertion. Medications and IVs Current Medications Propofol 100 ml @ As Directed STK-MED ONCE .ROUTE Last administered on 12:43; Start 06/22/17 at 12:25; Stop 06/22/17 at 12:26; Status DC IV Flush (NS Flush) 2 ml UNSCH PRN IV FLUSH FLUSH AFTER USING IV ACCESS; Start 06/22/17 at 12:30; Stop 06/22/17 at 15:32; Status DC Sodium Chloride 1,000 ml @ 1,000 mls/hr Q1H IV Last administered on 06/22/17 12:43; Start 06/22/17 at 12:25; Stop 06/22/17 at 13:24; Status DC Etomidate (Amidate Inj) 20 mg ONCE ONCE IVP Last administered on 06/22/17 12: 44; Start 06/22/17 at 12:30; Stop 06/22/17 at 12:34; Status DC Albuterol/ Ipratropium (Duoneb Neb) 1 ampule Q15M INH Last administered on 06/22 13:16; Start 06/22/17 at 12:30; Stop 06/22/17 at 13:01; Status DC Sodium Chloride (NS Flush) 2 ml UNSCH PRN IVF FLUSH AFTER USING IV ACCESS Last administered on 06/22/17 12:44; Start 06/22/17 at 12:30; Stop 06/22/17 at 15:32 ; Status DC Sodium Chloride 1,000 ml @ 999 mls/hr Q1H1M IV Last administered on 06/22/17 12:56; Start 06/22/17 at 12:45; Stop 06/22/17 at 13:45; Status DC Sodium Chloride 1,000 ml @ 999 mls/hr Q1H1M IV Last administered on 06/22/17 12:56; Start 06/22/17 at 12:45; Stop 06/22/17 at 13:45; Status DC Methylprednisolone Sodium Succinate (SoluMEDROL INJ) 125 mg ONCE ONCE IV PUSH Last administered on 06/22/17 12:56; Start 06/22/17 at 12:45; Stop 06/22/17 at 12:46; Status DC Hydromorphone HCl (Dilaudid Pf Inj) 0.5 mg ONCE ONCE IV PUSH Last administered on 06/22/17 12:56; Start 06/22/17 at 12:45; Stop 06/22/17 at 12:46 ; Status DC Succinylcholine Chloride (Quelicin Inj) 200 mg STK-MED ONCE .ROUTE Last administered on 06/22/17 12:20; Start 06/22/17 at 13:15; Stop 06/22/17 at 13:16 ; Status DC Vancomycin HCl 850 mg/Sodium Chloride 258.5 ml @ 250 mls/hr ONCE ONCE IV Last administered on 06/22/17 16:06; Start 06/22/17 at 15:15; Stop 06/22/17 at 16:17; Status DC Cefepime HCl 1000 mg/Sodium Chloride 100 ml @ 200 mls/hr ONCE ONCE IV Last administered on 06/22/17 15:08; Start 06/22/17 at 15:15; Stop 06/22/17 at 15:46 ; Status DC Sodium Chloride 1,000 ml @ 84 mls/hr [id number] IV Last administered on 03:06; Start 06/22/17 at 15:09; Stop 06/23/17 at 07:25; Status DC Sodium Chloride (NS Flush) 2 ml UNSCH PRN IV FLUSH FLUSH AFTER USING IV ACCESS Last administered on 07/11/17 06:10; Start 06/22/17 at 15:15 Sodium Chloride (NS Flush) 2 ml BID IV FLUSH Last administered on 08/09/17 09 :05; Start 06/22/17 at 21:00 Acetaminophen (Tylenol) 650 mg Q6H PRN PO PAIN 1-10 AND/OR FEVER >101F; Start 06/22/17 at 15:15; Stop 06/23/17 at 07:23; Status DC Famotidine (Pepcid Inj) 10 mg Q12HR IV PUSH Last administered on 06/26/17 20:36 ; Start 06/22/17 at 21:00; Stop 06/26/17 at 22:58; Status DC Lorazepam (Ativan Inj) 1 mg Q1H PRN IV Agitation/Sedation Last administered on 06/30/17 07:50; Start 06/22/17 at 15:15; Stop 06/30/17 at 12:29; Status DC Artificial Tears (Tears Naturale Opth Soln) 1 drop TID EACH EYE Last administered on 08/09/17 09:05; Start 06/22/17 at 18:00 Ondansetron HCl (Zofran Inj) 4 mg Q6H PRN IV NAUSEA OR VOMITING; Start at 15:15 Albuterol/ Ipratropium (Duoneb Neb) 1 ampule Q6HR NEB INH Last administered on 06/26/17 15:29; Start 06/22/17 at 16:00; Stop 06/26/17 at 15:59; Status DC Albuterol Sulfate (Albuterol Neb) 2.5 mg Q2HR NEB PRN INH SOB/WHEEZING Last administered on 07/09/17 11:13; Start 06/22/17 at 15:15; Stop 07/09/17 at 14:25 ; Status DC Heparin Sodium (Porcine) (Heparin Inj) 5,000 units Q12H SQ Last administered on 06/29/17 14:38; Start 06/22/17 at 15:15; Status Future Hold Miscellaneous Information 1 [id number] Last administered on 06/22/17 15:15; Start 06/22/17 at 15:15 Chlorhexidine Gluconate (Chlorhexidine 2% Cloth) Taper DAILY@04 TOP Last administered on 07/19/17 04:00; Start 06/23/17 at 04:00; Stop 06/19/18 at 03:59 Chlorhexidine Gluconate (Chlorhexidine 2% Cloth) 3 pack UNSCH PRN TOP HYGIENIC CARE; Start 06/22/17 at 15:15 Senna/Docusate Sodium (Indy-Colace) 1 tab BID PO Last administered on 06/29/17 22:42; Start 06/22/17 at 21:00; Stop 06/30/17 at 11:09; Status DC Magnesium Hydroxide (Milk Of Magnesia Liq) 30 ml Q12H PRN PO MILD - MODERATE CONSTIPATION; Start 06/22/17 at 15:15 Sennosides (Senokot) 17.2 mg Q12H PRN PO MODERATE - SEVERE CONSTIPATION Last administered on 08/08/17 23:41; Start 06/22/17 at 15:15 Bisacodyl (Dulcolax Supp) 10 mg DAILY PRN RECTAL SEVERE CONSITIPATION Last administered on 07/24/17 08:28; Start 06/22/17 at 15:15 Lactulose (Lactulose Liq) 30 ml DAILY PRN PO SEVERE CONSITIPATION; Start at 15:15 Chlorhexidine Gluconate (Peridex 0.12% Liq) 15 ml BID@08,20 MT Last administered on 08/03/17 08:00; Start 06/22/17 at 20:00 Propofol 100 ml @ 1.65 mls/hr TITRATE PRN IV SEDATION; Start 06/22/17 at 15:15 ; Stop 06/23/17 at 17:57; Status DC Fentanyl Citrate 250 ml @ 5 mls/hr TITRATE PRN IV SEDATION; Start 06/22/17 at 15:15; Stop 06/27/17 at 13:02; Status DC IV Flush (NS Flush) 2 ml BID IV FLUSH ; Start 06/22/17 at 21:00; Status UNV IV Flush (NS Flush) 2 ml UNSCH PRN IV FLUSH FLUSH AFTER USING IV ACCESS; Start 06/22/17 at 15:45; Status UNV Labetalol HCl (Trandate Inj) 10 mg Q2H PRN IV For SBP > 220 or DBP > 120; Start 06/22/17 at 15:45 Nicardipine HCl 25 mg/Sodium Chloride 260 ml @ 52 mls/hr TITRATE PRN IV Maintain BP goal; Start 06/22/17 at 16:00; Status Future Hold Aspirin (Aspirin Chew) 81 mg DAILY PO Last administered on 08/09/17 09:05; Start 06/23/17 at 09:00; Status Future hold Insulin Aspart (NovoLOG SUPPLEMENTAL SCALE) 1 ACHS SQ Last administered on 06/22 16:54; Start 06/22/17 at 16:00; Stop 06/23/17 at 07:23; Status DC Dextrose (D50w (Vial) Inj) 50 ml UNSCH PRN IV PUSH HYPOGLYCEMIA-SEE COMMENTS; Start 06/22/17 at 15:45 Glucagon (Glucagon Inj) 1 mg UNSCH PRN OTHER HYPOGLYCEMIA-SEE COMMENTS; Start 06/22/17 at 15:45 Piperacillin Sod/ Tazobactam Sod 50 ml @ 100 mls/hr Q6H IV Last administered on 06/29/17 05:17; Start 06/22/17 at 17:00; Stop 06/29/17 at 08:00; Status DC Lactulose (Lactulose Liq) 30 ml QID PO Last administered on 06/29/17 22:42; Start 06/22/17 at 18:00; Stop 07/01/17 at 15:26; Status DC Propofol 100 ml @ 1.65 mls/hr TITRATE PRN IV Ordered RASS Last administered on 06/28/17 05:59; Start 06/22/17 at 17:15; Stop 06/29/17 at 07:21; Status DC Calcium Gluconate 2 gm/Sodium Chloride 120 ml @ 120 mls/hr ONCE ONCE IV Last administered on 06/23/17 05:32; Start 06/23/17 at 06:00; Stop 06/23/17 at 06:59 ; Status DC Insulin Aspart (NovoLOG SUPPLEMENTAL SCALE) 1 Q6HR SQ Last administered on 06:16; Start 06/23/17 at 12:00; Stop 07/05/17 at 16:27; Status DC Sodium Chloride 1,000 ml @ 999 mls/hr BOLUS ONCE IV Last administered on 06/23 08:49; Start 06/23/17 at 08:00; Stop 06/23/17 at 09:00; Status DC Sodium Bicarbonate 100 meq/Sterile Water 950 ml @ 110 mls/hr Q8H39M IV Last administered on 06/24/17 02:48; Start 06/23/17 at 07:30; Stop 06/24/17 at 09:10; Status DC Potassium Chloride (KCl Powder) 40 meq ONCE ONCE PO Last administered on 06:45; Start 06/24/17 at 06:45; Stop 06/24/17 at 06:46; Status DC Sodium Phosphate 15 mmol/Sodium Chloride 155 ml @ 38.75 mls/ hr ONCE ONCE IV Last administered on 06/24/17 08:27; Start 06/24/17 at 08:00; Stop 06/24/17 at 11: 59; Status DC Water (Free Water) VOLUME: 200 ML Q4HR G-TUBE Last administered on 07/02/17 16: 00; Start 06/24/17 at 12:00; Stop 07/05/17 at 10:15; Status DC Sodium Chloride 1,000 ml @ 999 mls/hr BOLUS ONCE IV Last administered on 10:41; Start 06/24/17 at 09:15; Stop 06/24/17 at 10:15; Status DC Metoprolol Tartrate (Lopressor) 12.5 mg Q12HR PO Last administered on 06/27/17 20:02; Start 06/24/17 at 21:00; Stop 06/29/17 at 07:55; Status DC Miscellaneous (Pill Splitter) 1 ea UNSCH PRN OTHER SEE LABEL COMMENTS; Start at 15:00 Pharmacy Profile Note 0 ml @ 0 mls/hr UNSCH OTHER ; Start 06/24/17 at 22:30; Stop 06/27/17 at 13:12; Status DC Vancomycin HCl 1000 mg/Sodium Chloride 250 ml @ 250 mls/hr ONCE ONCE IV Last administered on 06/24/17 22:46; Start 06/24/17 at 22:30; Stop 06/24/17 at 23:29; Status DC Potassium Phosphate 30 mmol/ Sodium Chloride 260 ml @ 43.333 mls/ hr ONCE ONCE IV Last administered on 06/25/17 11:00; Start 06/25/17 at 11:00; Stop at 16:59; Status DC Vancomycin HCl 1000 mg/Sodium Chloride 250 ml @ 250 mls/hr Q24H IV Last administered on 06/27/17 06:11; Start 06/26/17 at 02:00; Stop 06/27/17 at 09:08; Status DC Miscellaneous Information SPECIFIC LAB TO BE DRAWN: VANCO TROUGH DATE... ONCE ONCE .XX ; Start 06/27/17 at 01:45; Stop 06/27/17 at 01:46; Status DC Lisinopril (Prinivil) 5 mg DAILY OG-TUBE Last administered on 06/28/17 08:00; Start 06/27/17 at 09:00; Stop 06/28/17 at 08:48; Status DC Potassium Chloride (KCl Powder) 30 meq ONCE ONCE NG Last administered on 14:00; Start 06/26/17 at 14:00; Stop 06/26/17 at 14:01; Status DC Pantoprazole Sodium (Protonix Inj) 40 mg Q12H IV PUSH Last administered on 10:37; Start 06/26/17 at 23:00; Stop 06/27/17 at 13:02; Status DC Vancomycin HCl 1000 mg/Sodium Chloride 250 ml @ 250 mls/hr Q18H IV ; Start 06/28 at 00:00; Stop 06/28/17 at 00:00; Status DC Miscellaneous Information SPECIFIC LAB TO BE ... ONCE ONCE .XX ; Start at 11:45; Stop 06/29/17 at 11:46; Status Cancel Levofloxacin/ Dextrose 150 ml @ 100 mls/hr Q24H IV Last administered on 14:04; Start 06/27/17 at 14:00; Stop 07/15/17 at 15:55; Status DC Pantoprazole Sodium 80 mg/ Sodium Chloride 100 ml @ 10 mls/hr Q10H IV Last administered on 06/28/17 22:58; Start 06/27/17 at 16:00; Stop 06/29/17 at 07:21; Status DC Potassium Chloride 100 ml @ 50 mls/hr Q2H PRN IV For Potassium 2.8 - 3.2 mEq/L ; Start 06/28/17 at 03:30; Stop 06/30/17 at 12:31; Status DC Potassium Chloride 100 ml @ 50 mls/hr Q2H PRN IV For Potassium 2.8 - 3.2 mEq/L ; Start 06/28/17 at 03:30; Stop 06/30/17 at 12:31; Status DC Potassium Bicarb/ Potassium Chloride (K-Lyte Cl Eff) 50 meq UNSCH PRN PO For Potassium 3.3 - 3.5 mEq/L; Start 06/28/17 at 03:30; Stop 06/30/17 at 12:31; Status DC Potassium Chloride 100 ml @ 25 mls/hr UNSCH PRN IV For Potassium 3.3 - 3.5 mEq /L; Start 06/28/17 at 03:30; Stop 06/30/17 at 12:31; Status DC Potassium Chloride 100 ml @ 50 mls/hr Q2H PRN IV For Potassium 3.3 - 3.5 mEq/ L Last administered on 06/28/17t 07:10; Start 06/28/17 at 03:30; Stop 06/30/17 at 12:31; Status DC Magnesium Sulfate 4 gm/Sodium Chloride 100 ml @ 50 mls/hr UNSCH PRN IV For Magnesium 0.9 - 1.1 mg/dL; Start 06/28/17 at 03:30; Stop 06/30/17 at 12:31; Status DC Magnesium Oxide (Mag-Ox) 800 mg UNSCH PRN PO For Magnesium 1.2 - 1.6 mg/dL; Start 06/28/17 at 03:30; Stop 06/30/17 at 12:31; Status DC Magnesium Sulfate 2 gm/Sodium Chloride 100 ml @ 50 mls/hr UNSCH PRN IV For Magnesium 1.2 - 1.6 mg/dL; Start 06/28/17 at 03:30; Stop 06/30/17 at 12:31; Status DC Potassium Phosphate (K-Phos) 2,000 mg Q4H PRN PO For Phosphorus < 2.5 mg/dL; Start 06/28/17 at 03:30; Stop 06/30/17 at 12:31; Status DC Sodium Phosphate 30 mmol/Sodium Chloride 250 ml @ 42 mls/hr UNSCH PRN IV For Phosphorus < 2.5 mg/dL; Start 06/28/17 at 03:30; Stop 06/30/17 at 12:31; Status DC Potassium Phosphate (K-Phos) 2,000 mg UNSCH PRN PO/TUBE SEE LABEL COMMENTS; Start 06/28/17 at 03:30; Stop 06/30/17 at 12:31; Status DC Potassium Phosphate 30 mmol/ Sodium Chloride 260 ml @ 42 mls/hr UNSCH PRN IV SEE LABEL COMMENTS; Start 06/28/17 at 03:30; Stop 06/30/17 at 12:31; Status DC Lisinopril (Prinivil) 10 mg DAILY OG-TUBE ; Start 06/28/17 at 10:00; Stop at 13:47; Status DC Potassium Chloride/Sodium Chloride 1,000 ml @ 84 mls/hr [id number] IV Last administered on 06/28/17 13:22; Start 06/28/17 at 13:00; Stop 06/28/17 at 21:10; Status DC Aspirin (Aspirin Supp) 300 mg DAILY RECTAL Last administered on 06/29/17 09:20 ; Start 06/29/17 at 09:00; Stop 07/01/17 at 15:26; Status DC Dexamethasone Sodium Phosphate (Decadron Inj) 6 mg NOW ONCE IV Last administered on 06/28/17 21:55; Start 06/28/17 at 21:15; Stop 06/28/17 at 21:16; Status DC Dexamethasone Sodium Phosphate (Decadron Inj) 6 mg Q6H IV Last administered on 06/30/17 02:49; Start 06/29/17 at 03:00; Stop 06/30/17 at 03:01; Status DC Pantoprazole Sodium (Protonix Inj) 40 mg Q12H IV PUSH Last administered on 07/17 08:36; Start 06/29/17 at 08:00; Stop 07/17/17 at 09:44; Status DC Metoprolol Tartrate (Lopressor) 25 mg Q8HR PO Last administered on 08/07/17 13:22; Start 06/29/17 at 14:00 Hydralazine HCl (Apresoline Inj) 20 mg Q4H PRN IV PUSH SBP >160; Start 06/29/17 at 08:00; Stop 06/30/17 at 20:50; Status DC Haloperidol Lactate (Haldol Inj) 5 mg Q6H PRN IM AGITATION Last administered on 07/01/17 21:23; Start 06/30/17 at 12:30 Dextrose/Sodium Chloride 1,000 ml @ 100 mls/hr Q10H IV Last administered on 09:00; Start 06/30/17 at 13:00; Stop 07/01/17 at 15:26; Status DC Albuterol/ Ipratropium (Duoneb Neb) 1 ampule Q4HR NEB NEB Last administered on 07/04/17 08:31; Start 06/30/17 at 12:30; Stop 07/04/17 at 12:29; Status DC Morphine Sulfate (Morphine Inj) 2 mg Q3H PRN IV PUSH PAIN GREATER THAN 5 Last administered on 07/17/17 09:04; Start 06/30/17 at 12:30; Stop 07/17/17 at 09:44 ; Status DC Enalaprilat (Vasotec Inj) 2.5 mg Q6H PRN IV PUSH SBP > 160 Last administered on 07/14/17 12:10; Start 06/30/17 at 21:00 Lactulose (Lactulose Liq) 30 ml BID PO Last administered on 07/18/17 09:52; Start 07/01/17 at 21:00; Stop 07/18/17 at 11:37; Status DC Potassium Chloride 100 ml @ 50 mls/hr Q2H IV Last administered on 07/02/17 21: 31; Start 07/02/17 at 17:30; Stop 07/02/17 at 21:29; Status DC Magnesium Oxide (Mag-Ox) 400 mg ONCE ONCE PO Last administered on 07/02/17 16: 48; Start 07/02/17 at 16:15; Stop 07/02/17 at 16:16; Status DC Rifaximin (Xifaxan) 550 mg BID PO Last administered on 08/09/17 09:03; Start 07/03/17 at 09:00 Potassium Bicarb/ Potassium Chloride (K-Lyte Cl Eff) 75 meq ONCE ONCE PO ; Start 07/03/17 at 14:15; Stop 07/03/17 at 14:15; Status DC Potassium Chloride 100 ml @ 50 mls/hr Q2H IV Last administered on 07/03/17 23 :12; Start 07/03/17 at 15:00; Stop 07/03/17 at 18:59; Status DC Potassium Bicarbonate (Effer-K Eff) 75 meq ONCE ONCE PO Last administered on 14:52; Start 07/03/17 at 15:00; Stop 07/03/17 at 15:01; Status DC Potassium Bicarbonate (Effer-K Eff) 25 meq ONCE ONCE PO Last administered on 12:00; Start 07/05/17 at 10:15; Stop 07/05/17 at 10:17; Status DC Lisinopril (Prinivil) 10 mg DAILY PO Last administered on 08/08/17 08:34; Start 07/07/17 at 09:00 Lisinopril (Prinivil) 10 mg ONCE ONCE PO Last administered on 07/06/17 14:00 ; Start 07/06/17 at 14:00; Stop 07/06/17 at 14:01; Status DC Furosemide (Lasix Inj) 40 mg ONCE ONCE IV PUSH Last administered on 07/08/17 03:30; Start 07/08/17 at 04:30; Stop 07/08/17 at 04:31; Status DC Cefazolin Sodium (Ancef Inj) 1,000 mg ONCE ONCE IV Last administered on 13:04; Start 07/08/17 at 13:03; Stop 07/08/17 at 13:04; Status DC Propofol (Diprivan 200 Mg/20 ml Inj) 120 mg STK-MED ONCE IV ; Start 07/08/17 at 11:53; Stop 07/08/17 at 13:05; Status DC Albuterol/ Ipratropium (Duoneb Neb) 1 ampule ONCE ONCE NEB ; Start 07/09/17 at 14:30; Stop 07/09/17 at 14:31; Status Cancel Albuterol/ Ipratropium (Duoneb Neb) 1 ampule Q2HR NEB PRN NEB SOB/WHEEZING Last administered on 08/08/17 18:22; Start 07/09/17 at 14:00 Albuterol/ Ipratropium (Duoneb Neb) 1 ampule Q6HR WHILE AWAKE NEB NEB Last administered on 07/13/17 08:44; Start 07/09/17 at 14:00; Stop 07/13/17 at 13:59 ; Status DC Amoxicillin/ Clavulanate Potassium (Augmentin) 875 mg Q12HR PO Last administered on 07/16/17 08:19; Start 07/09/17 at 14:00; Stop 07/16/17 at 13:59 ; Status DC Lactobacillus Acidophilus (Lactinex Pkt) 1 gm BID PO Last administered on 08/09 09:05; Start 07/09/17 at 21:00 Methylprednisolone Sodium Succinate (SoluMEDROL INJ) 40 mg ONCE ONCE IV PUSH Last administered on 07/09/17 17:06; Start 07/09/17 at 14:00; Stop 07/09/17 at 14:24; Status DC Potassium Chloride (KCl Powder) 60 meq ONCE ONCE PO Last administered on 13:49; Start 07/10/17 at 10:30; Stop 07/10/17 at 10:31; Status DC Potassium Phosphate (K-Phos) 500 mg ONCE ONCE PO Last administered on 12:29; Start 07/10/17 at 10:30; Stop 07/10/17 at 10:31; Status DC Magnesium Oxide (Mag-Ox) 400 mg ONCE ONCE PO Last administered on 07/10/17 12 :29; Start 07/10/17 at 10:30; Stop 07/10/17 at 10:31; Status DC Potassium Phosphate (K-Phos) 500 mg ONCE ONCE PO Last administered on 12:44; Start 07/11/17 at 11:15; Stop 07/11/17 at 11:32; Status DC Potassium Bicarb/ Potassium Chloride (K-Lyte Cl Eff) 25 meq ONCE ONCE PO Last administered on 07/13/17 14:47; Start 07/13/17 at 12:00; Stop 07/13/17 at 12:01; Status DC Hydralazine HCl (Apresoline) 10 mg Q6HR PRN PO SBP>160, DBP>90; Start 07/14/17 at 15:45 Pantoprazole Sodium (Protonix) 40 mg Q12HR PO Last administered on 08/09/17 09:05; Start 07/17/17 at 21:00 Oxycodone/ Acetaminophen (Percocet 7.5-325 Mg) 1 tab Q4H PRN PO pain>5 Last administered on 08/09/17 06:34; Start 07/17/17 at 09:45 Lactulose (Lactulose Liq) 30 ml DAILY PO Last administered on 08/09/17 09:05 ; Start 07/19/17 at 09:00 Temazepam (Restoril) 15 mg HS PRN PO INSOMNIA Last administered on 08/08/17 23:42; Start 07/18/17 at 14:00 Pneumococcal Polyvalent Vaccine (Pneumovax-23 Inj) 25 mcg ONCE ONCE IM ; Start 07/20/17 at 10:00; Stop 07/20/17 at 10:01; Status Cancel Influenza Virus Vaccine (Flu (Quadrivalent) Vaccine Inj) 0.5 ml ONCE ONCE IM ; Start 07/20/17 at 10:00; Stop 07/20/17 at 10:01; Status Cancel Influenza Virus Vaccine (Flu (Quadrivalent) Vaccine Inj) 0.5 ml ONCE ONCE IM Last administered on 07/19/17 11:00; Start 07/19/17 at 09:00; Stop 07/19/17 at 09:01; Status DC Pneumococcal Polyvalent Vaccine (Pneumovax-23 Inj) 25 mcg ONCE ONCE IM ; Start 07/18/17 at 19:15; Stop 07/18/17 at 19:15; Status DC Pneumococcal Polyvalent Vaccine (Pneumovax-23 Inj) 25 mcg ONCE ONCE IM Last administered on 07/19/17 09:23; Start 07/19/17 at 09:00; Stop 07/19/17 at 09:01 ; Status DC IV Flush (NS Flush) 5 ml UNSCH PRN IV FLUSH FLUSH AFTER USING IV ACCESS; Start 07/25/17 at 11:15 Zolpidem Tartrate (Ambien) 5 mg HS PRN PO INSOMNIA Last administered on 22:53; Start 08/02/17 at 11:15; Stop 08/08/17 at 10:43; Status DC Guaifenesin/ Dextromethorphan (Robitussin Dm 200-20 Mg/10 ml Liq) 10 ml Q6H PRN PO cough ; Start 08/06/17 at 14:15 Diatrizoate Meglum/ Diatrizoate Sod ( Gastroview Liq) 18 ml ONCE ONCE PO Last administered on 08/07/17 16:19; Start 08/07/17 at 16:30; Stop 08/07/17 at 16:31; Status DC Zolpidem Tartrate (Ambien) 10 mg HS PRN PO INSOMNIA; Start 08/08/17 at 11:00 Iohexol (Omnipaque 350 Inj) 72 ml STK-MED ONCE IVCONTRAST Last administered on 08/08/17 11:23; Start 08/08/17 at 11:23; Stop 08/08/17 at 11:30; Status DC A/P Problem List: (1) Thrombocytopenia ICD Code: D69.6 - Thrombocytopenia, unspecified (2) Polycythemia ICD Code: D75.1 - Secondary polycythemia (3) CVA (cerebral vascular accident) ICD Code: I63.9 - Cerebral infarction, unspecified (4) Stroke ICD Code: I63.9 - Cerebral infarction, unspecified Status: Acute (5) Incontinence ICD Code: R32 - Unspecified urinary incontinence (6) Cystitis ICD Code: N30.90 - Cystitis, unspecified without hematuria Assessment and Plan A/P CVA , with expressive aphasia and right hemiparesis, dysphagia. Continue with aspirin LDL 36 therefore statin is not indicated PT/OT/speech therapy Appreciate input from neurology Continue current treatment Possible aspiration pneumonia-treated. s/p Augmentin 07/16/17 Hyperammonemia-resolved Continue lactulose daily Monitor ammonia level as needed. Acute hypoxemic respiratory failure Resolved Continue with DuoNeb when necessary and maintain oxygen saturation above 92% Hypertension Cardiomyopathy 2-D echo revealed LVEF of 45%. Continue beta marilou. PRN antihypertensives Appreciate input from cardiology who signed off Dysphagia PEG has been removed. diet per ST. drainage from the site of PEG/ low grade fever CT of the abdomen as noted above. GI following. History of chronic of chronic benzodiazepine use Advised on cessation Upper GI bleed Elevated transaminases Elevated ammonia Hypoalbuminemia Hepatitis C antibody positive Rectal bleeding Currently on Protonix Appreciate input from GI who signed off s/p EGD with gastritis and esophagitis. HIDA scan 06/28 with distended gallbladder-no evidence of acute cholecystitis s/p PEG placement / removal History of incontinence Resolved Acute kidney injury Resolved Thrombocytopenia resolved. insomnia; ambien as needed. Prophylaxis - GI - PO Protonix - DVT - SCD/heparin subcutaneous on hold due to GI bleed. Discharge Planning awaiting placement- pending SSI. Problem Qualifiers (1) CVA (cerebral vascular accident): Qualified Codes: I63.9 - Cerebral infarction, unspecified (2) Stroke: Qualified Codes: I63.9 - Cerebral infarction, unspecified (3) Incontinence: Qualified Codes: R32 - Unspecified urinary incontinence Madhu Villaseñor MD Aug 09, 2017 10:02
[2017-08-09 12:45] VITALS: BP 127/71; PULSE 102; RESP 20; TEMP 98.3; O2SAT 97
--- NOTE | 2017-08-09 17:12 | HHI.GIFU ---
Subjective Remarks Pt ambulating. Eating well. Denies abd pain, nausea. (Radha Randle ELECTRICAL MAINTENANCE SUPERVISOR) Objective Vitals I&O Vital Signs Date Time Temp Pulse Resp B/P (MAP) Pulse Ox O2 Delivery O2 Flow Rate FiO2 08/09/17 12:45 98.3 102 20 127/71 (89) 97 08/09/17 09:15 97 Room Air 08/09/17 08:32 98.1 99 20 100/66 (77) 95 08/09/17 06:00 98.4 96 18 99/65 (76) 97 08/09/17 03:02 18 08/09/17 02:26 97 Nasal Cannula 2.00 08/09/17 00:45 97.8 100 19 100/61 (74) 97 08/08/17 23:37 98.1 96 18 98/60 (73) 95 08/08/17 22:01 94 Nasal Cannula 2.00 08/08/17 20:20 98.7 94 18 87/50 (62) 96 I/O 08/08/17 08/08/17 08/08/17 08/09/17 08/09/17 08/09/17 07:00 15:00 23:00 07:00 15:00 23:00 Intake Total 940 ml 2500 ml Balance 940 ml 2500 ml Intake Oral 940 ml 2500 ml # Voids 2 5 2 4 # Bowel Movements 1 0 Laboratory Date/Time Source Procedure Growth Status 06/25/17 01:40 Blood Peripheral Aerobic Blood Culture - Final NO GROWTH IN 5 DAYS Complete 06/25/17 01:40 Blood Peripheral Anaerobic Blood Culture - Final NO GROWTH IN 5 DAYS Complete 06/25/17 10:00 Sputum Endotracheal Gram Stain - Final Complete 06/25/17 10:00 Sputum Culture - Final Stenotrophomonas Maltophilia Complete 06/22/17 13:30 Urine Catheterized Urine Urine Culture - Final 10-50,000 CFU/ML MIXED GRAM POSITIVE ... Complete Physical Exam HEENT: Normocephalic; atraumatic; no jaundice. CHEST: diminished CARDIAC: RRR ABDOMEN: Soft, mildly distended, nontender, no hepatosplenomegaly; bowel sounds are present in all four quadrants ; PEG site still small cavity, scant drainage, no redness EXTREMITIES: No clubbing, cyanosis, or edema. ENVIRONMENTAL ASSISTANT: Alert, follows commands, aphasic (Radha Randle) Assessment and Plan Plan ASSESSMENT: - Pain at peg tube site. EGD with peg tube placement (07/08/17)----> gastritis, esophagitis, peg tube placement. Reconsulted for pain at peg tube site. The site itself has edema, erythema, and significant tenderness and was removed on 08/07. CT scan was ordered, but is pending because they were just able to get IV access. Her abdominal pain has improved although she continues to have mild left upper quadrant tenderness. % meals eaten being monitored, eating 75-100% meals CT scan shows patent PEG site. Pt denied pain, nontender on exam. - Anemia. HH stable. - Gastritis/esophagitis. Stomach with minimal chronic gastritis, distal esophagus with squamous mucosa without significant histopathologic abnoramlity, negative for intestinal metasplasia, dysphasia, or malignancy. 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 - CVA, PNA, HTN, Cardiomyopathy, per attending. - PLAN: - [place] - Record meal percentages - Supportive care - Further recommendations to follow based on results of above - Pt seen and examined by Dr. Camacho and myself and this note is written on his behalf (Radha Randle) Physician Comments Patient seen and examined Agree with above Continue with current supportive care Monitor labs Pain has resolved Intake seems to be well orally Use PEG tube as needed Not much to add from a GI standpoint We will sign off but please have patient follow-up on an outpatient basis to further address the issue of hepatitis C (Brady Camacho MD) Radha Randle Aug 09, 2017 17:12 Brady Camacho MD Aug 09, 2017 22:33
[2017-08-09 17:37] VITALS: BP 111/69; PULSE 78; RESP 20; TEMP 98.5; O2SAT 99
[2017-08-09] MEDS: ZOLPIDEM TARTRATE 5 MG TAB PO PRN ×2 (20:39)
[2017-08-09 20:50] VITALS: BP 104/63; PULSE 87; RESP 18; TEMP 97.8; O2SAT 97
[2017-08-10] MEDS: oxyCODONE/ACETAMINOPHEN 7.5 MG/325 MG TAB PO PRN ×12 (03:26→22:31)
[2017-08-10] MEDS: CHLORHEXIDINE GLUCONATE 2 % 1 PACK (2 CLOTHS) TOP SCH ×4 (04:00→22:11)
[2017-08-10] MEDS: METOPROLOL TARTRATE 25 MG TAB PO SCH ×6 (05:42→22:07)
[2017-08-10 06:00] VITALS: BP 110/68; PULSE 80; RESP 17; TEMP 98.1; O2SAT 96
[2017-08-10 08:00] VITALS: BP 108/69; PULSE 77; RESP 20; TEMP 97.1; O2SAT 99
[2017-08-10] MEDS: CHLORHEXIDINE 0.12% (ORAL KIT) 15 ML CUP MT SCH ×2 (08:00)
[2017-08-10] MEDS: LACTOBACILLUS ACIDOPHILUS 1 GM PACKET PO SCH ×4 (09:00→22:08)
[2017-08-10] MEDS: ARTIFICIAL TEARS OPTH SOLN 15 ML BTL EACH EYE SCH ×6 (09:00→15:52)
[2017-08-10] MEDS: SODIUM CHLORIDE 0.9% FLUSH 10 ML FLUSH IV FLUSH SCH ×4 (09:00→22:08)
--- NOTE | 2017-08-10 09:20 | HHI.PR ---
Subjective Remarks in no distress. no abdominal pain, nausea or vomiting. no new complaints. Objective Vitals Vital Signs Date Time Temp Pulse Resp B/P (MAP) Pulse Ox O2 Delivery O2 Flow Rate FiO2 08/10/17 06:00 98.1 80 17 110/68 (82) 96 08/09/17 21:30 Nasal Cannula 2.00 08/09/17 20:50 97.8 87 18 104/63 (77) 97 08/09/17 17:37 98.5 78 20 111/69 (83) 99 08/09/17 12:45 98.3 102 20 127/71 (89) 97 I/O 08/09/17 08/09/17 08/09/17 08/10/17 08/10/17 08/10/17 07:00 15:00 23:00 07:00 15:00 23:00 Intake Total 2500 ml 940 ml 1000 ml 800 ml Balance 2500 ml 940 ml 1000 ml 800 ml Intake Oral 2500 ml 940 ml 1000 ml 800 ml # Voids 4 5 1 3 # Bowel Movements 0 2 0 0 Result Diagram: 08/06/17 1615 Imaging Last Impressions Abdomen/Pelvis CT 08/08/17 0000 Signed Impressions: Service Date/Time: Tuesday, August 08, 2017 11:16 - CONCLUSION: PEG tube site remains patent from stomach to the anterior abdominal wall with induration in the rectus. Patchy airspace disease in both lungs. Rudy Meng MD FACR Abdomen X-Ray 08/06/17 0000 Signed Impressions: Service Date/Time: Sunday, August 06, 2017 00:36 - CONCLUSION: PEG tube overlying the left lower abdomen. Christopher Sarmiento MD Modified Barium Swallow 07/19/17 0000 Signed Impressions: Service Date/Time: Wednesday, July 19, 2017 00:00 - CONCLUSION: Penetration and aspiration as above within liquids, penetration with nectar thick consistency. Jude Braxton MD Chest X-Ray 07/09/17 0000 Signed Impressions: Service Date/Time: Sunday, July 09, 2017 14:04 - CONCLUSION: 1. Stable mild central bibasilar patchy airspace disease. 2. No significant interval change. Gustavo Santoro MD Head CT 07/06/17 0000 Signed Impressions: Service Date/Time: Thursday, July 06, 2017 09:07 - CONCLUSION: 1. 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 2. Mucous retention cyst within left maxillary and right sphenoid sinuses. Juan Pablo Huffman MD Hepatobiliary Scan Nuclear Medicine 06/28/17 0900 Signed Impressions: Service Date/Time: Wednesday, June 28, 2017 10:17 - CONCLUSION: Nonspecific persistent distention of the gallbladder. No evidence of acute cholecystitis or biliary obstruction. Christopher Gutierrez MD Lung Scan-VQ Nuclear Medicine 06/24/17 0000 Signed Impressions: Service Date/Time: Saturday, June 24, 2017 12:21 - CONCLUSION: 1. Low probability of pulmonary embolism Jose Richard MD Head Magnetic Resonance Angiography 06/24/17 0000 Signed Impressions: Service Date/Time: Saturday, June 24, 2017 13:37 - CONCLUSION: Negative for major branch vessels obstruction in spite of MRI findings. Rudy Meng MD FACR Brain MRI 06/24/17 0000 Signed Impressions: Service Date/Time: Saturday, June 24, 2017 13:37 - CONCLUSION: Findings consistent with acute infarct left sylvian region anteriorly without hemorrhage. Rudy Meng MD FACR Carotid Artery Ultrasound 06/22/17 0000 Signed Impressions: Service Date/Time: Thursday, June 22, 2017 15:56 - CONCLUSION: No evidence of flow-limiting carotid stenosis. Christopher Leonardo MD Abdomen Ultrasound 06/22/17 0000 Signed Impressions: Service Date/Time: Thursday, June 22, 2017 16:30 - CONCLUSION: Distended gallbladder with wall thickening and internal debris. Mild calyceal dilatation involving the kidneys bilaterally Christopher Leonardo MD Objective Remarks GENERAL: This is a well-nourished, well-developed patient, in no apparent distress. CARDIOVASCULAR: Regular rate and regular rhythm without murmurs, gallops, or rubs. RESPIRATORY: Clear to auscultation. Breath sounds equal bilaterally. No wheezes , rales, or rhonchi. GASTROINTESTINAL: Abdomen soft, non-tender, nondistended. Normal, active bowel sounds- some drainage from the site of PEG. MUSCULOSKELETAL: Extremities without clubbing, cyanosis, or edema. NEURO: Alert & Oriented x4 to person, place, time, situation. Moves all ext x4 Procedures PEG tube insertion. Medications and IVs Current Medications Propofol 100 ml @ As Directed STK-MED ONCE .ROUTE Last administered on 12:43; Start 06/22/17 at 12:25; Stop 06/22/17 at 12:26; Status DC IV Flush (NS Flush) 2 ml UNSCH PRN IV FLUSH FLUSH AFTER USING IV ACCESS; Start 06/22/17 at 12:30; Stop 06/22/17 at 15:32; Status DC Sodium Chloride 1,000 ml @ 1,000 mls/hr Q1H IV Last administered on 06/22/17 12:43; Start 06/22/17 at 12:25; Stop 06/22/17 at 13:24; Status DC Etomidate (Amidate Inj) 20 mg ONCE ONCE IVP Last administered on 06/22/17 12: 44; Start 06/22/17 at 12:30; Stop 06/22/17 at 12:34; Status DC Albuterol/ Ipratropium (Duoneb Neb) 1 ampule Q15M INH Last administered on 06/22 13:16; Start 06/22/17 at 12:30; Stop 06/22/17 at 13:01; Status DC Sodium Chloride (NS Flush) 2 ml UNSCH PRN IVF FLUSH AFTER USING IV ACCESS Last administered on 06/22/17 12:44; Start 06/22/17 at 12:30; Stop 06/22/17 at 15:32 ; Status DC Sodium Chloride 1,000 ml @ 999 mls/hr Q1H1M IV Last administered on 06/22/17 12:56; Start 06/22/17 at 12:45; Stop 06/22/17 at 13:45; Status DC Sodium Chloride 1,000 ml @ 999 mls/hr Q1H1M IV Last administered on 06/22/17 12:56; Start 06/22/17 at 12:45; Stop 06/22/17 at 13:45; Status DC Methylprednisolone Sodium Succinate (SoluMEDROL INJ) 125 mg ONCE ONCE IV PUSH Last administered on 06/22/17 12:56; Start 06/22/17 at 12:45; Stop 06/22/17 at 12:46; Status DC Hydromorphone HCl (Dilaudid Pf Inj) 0.5 mg ONCE ONCE IV PUSH Last administered on 06/22/17 12:56; Start 06/22/17 at 12:45; Stop 06/22/17 at 12:46 ; Status DC Succinylcholine Chloride (Quelicin Inj) 200 mg STK-MED ONCE .ROUTE Last administered on 06/22/17 12:20; Start 06/22/17 at 13:15; Stop 06/22/17 at 13:16 ; Status DC Vancomycin HCl 850 mg/Sodium Chloride 258.5 ml @ 250 mls/hr ONCE ONCE IV Last administered on 06/22/17 16:06; Start 06/22/17 at 15:15; Stop 06/22/17 at 16:17; Status DC Cefepime HCl 1000 mg/Sodium Chloride 100 ml @ 200 mls/hr ONCE ONCE IV Last administered on 06/22/17 15:08; Start 06/22/17 at 15:15; Stop 06/22/17 at 15:46 ; Status DC Sodium Chloride 1,000 ml @ 84 mls/hr [id number] IV Last administered on 03:06; Start 06/22/17 at 15:09; Stop 06/23/17 at 07:25; Status DC Sodium Chloride (NS Flush) 2 ml UNSCH PRN IV FLUSH FLUSH AFTER USING IV ACCESS Last administered on 07/11/17 06:10; Start 06/22/17 at 15:15 Sodium Chloride (NS Flush) 2 ml BID IV FLUSH Last administered on 08/09/17 20 :34; Start 06/22/17 at 21:00 Acetaminophen (Tylenol) 650 mg Q6H PRN PO PAIN 1-10 AND/OR FEVER >101F; Start 06/22/17 at 15:15; Stop 06/23/17 at 07:23; Status DC Famotidine (Pepcid Inj) 10 mg Q12HR IV PUSH Last administered on 06/26/17 20:36 ; Start 06/22/17 at 21:00; Stop 06/26/17 at 22:58; Status DC Lorazepam (Ativan Inj) 1 mg Q1H PRN IV Agitation/Sedation Last administered on 06/30/17 07:50; Start 06/22/17 at 15:15; Stop 06/30/17 at 12:29; Status DC Artificial Tears (Tears Naturale Opth Soln) 1 drop TID EACH EYE Last administered on 08/09/17 18:28; Start 06/22/17 at 18:00 Ondansetron HCl (Zofran Inj) 4 mg Q6H PRN IV NAUSEA OR VOMITING; Start at 15:15 Albuterol/ Ipratropium (Duoneb Neb) 1 ampule Q6HR NEB INH Last administered on 06/26/17 15:29; Start 06/22/17 at 16:00; Stop 06/26/17 at 15:59; Status DC Albuterol Sulfate (Albuterol Neb) 2.5 mg Q2HR NEB PRN INH SOB/WHEEZING Last administered on 07/09/17 11:13; Start 06/22/17 at 15:15; Stop 07/09/17 at 14:25 ; Status DC Heparin Sodium (Porcine) (Heparin Inj) 5,000 units Q12H SQ Last administered on 06/29/17 14:38; Start 06/22/17 at 15:15; Status Future Hold Miscellaneous Information 1 [id number] Last administered on 06/22/17 15:15; Start 06/22/17 at 15:15 Chlorhexidine Gluconate (Chlorhexidine 2% Cloth) Taper DAILY@04 TOP Last administered on 07/19/17 04:00; Start 06/23/17 at 04:00; Stop 06/19/18 at 03:59 Chlorhexidine Gluconate (Chlorhexidine 2% Cloth) 3 pack UNSCH PRN TOP HYGIENIC CARE; Start 06/22/17 at 15:15 Senna/Docusate Sodium (Indy-Colace) 1 tab BID PO Last administered on 06/29/17 22:42; Start 06/22/17 at 21:00; Stop 06/30/17 at 11:09; Status DC Magnesium Hydroxide (Milk Of Magnesia Liq) 30 ml Q12H PRN PO MILD - MODERATE CONSTIPATION; Start 06/22/17 at 15:15 Sennosides (Senokot) 17.2 mg Q12H PRN PO MODERATE - SEVERE CONSTIPATION Last administered on 08/08/17 23:41; Start 06/22/17 at 15:15 Bisacodyl (Dulcolax Supp) 10 mg DAILY PRN RECTAL SEVERE CONSITIPATION Last administered on 07/24/17 08:28; Start 06/22/17 at 15:15 Lactulose (Lactulose Liq) 30 ml DAILY PRN PO SEVERE CONSITIPATION; Start at 15:15 Chlorhexidine Gluconate (Peridex 0.12% Liq) 15 ml BID@08,20 MT Last administered on 08/03/17 08:00; Start 06/22/17 at 20:00 Propofol 100 ml @ 1.65 mls/hr TITRATE PRN IV SEDATION; Start 06/22/17 at 15:15 ; Stop 06/23/17 at 17:57; Status DC Fentanyl Citrate 250 ml @ 5 mls/hr TITRATE PRN IV SEDATION; Start 06/22/17 at 15:15; Stop 06/27/17 at 13:02; Status DC IV Flush (NS Flush) 2 ml BID IV FLUSH ; Start 06/22/17 at 21:00; Status UNV IV Flush (NS Flush) 2 ml UNSCH PRN IV FLUSH FLUSH AFTER USING IV ACCESS; Start 06/22/17 at 15:45; Status UNV Labetalol HCl (Trandate Inj) 10 mg Q2H PRN IV For SBP > 220 or DBP > 120; Start 06/22/17 at 15:45 Nicardipine HCl 25 mg/Sodium Chloride 260 ml @ 52 mls/hr TITRATE PRN IV Maintain BP goal; Start 06/22/17 at 16:00; Status Future Hold Aspirin (Aspirin Chew) 81 mg DAILY PO Last administered on 08/09/17 09:05; Start 06/23/17 at 09:00; Status Future hold Insulin Aspart (NovoLOG SUPPLEMENTAL SCALE) 1 ACHS SQ Last administered on 06/22 16:54; Start 06/22/17 at 16:00; Stop 06/23/17 at 07:23; Status DC Dextrose (D50w (Vial) Inj) 50 ml UNSCH PRN IV PUSH HYPOGLYCEMIA-SEE COMMENTS; Start 06/22/17 at 15:45 Glucagon (Glucagon Inj) 1 mg UNSCH PRN OTHER HYPOGLYCEMIA-SEE COMMENTS; Start 06/22/17 at 15:45 Piperacillin Sod/ Tazobactam Sod 50 ml @ 100 mls/hr Q6H IV Last administered on 06/29/17 05:17; Start 06/22/17 at 17:00; Stop 06/29/17 at 08:00; Status DC Lactulose (Lactulose Liq) 30 ml QID PO Last administered on 06/29/17 22:42; Start 06/22/17 at 18:00; Stop 07/01/17 at 15:26; Status DC Propofol 100 ml @ 1.65 mls/hr TITRATE PRN IV Ordered RASS Last administered on 06/28/17 05:59; Start 06/22/17 at 17:15; Stop 06/29/17 at 07:21; Status DC Calcium Gluconate 2 gm/Sodium Chloride 120 ml @ 120 mls/hr ONCE ONCE IV Last administered on 06/23/17 05:32; Start 06/23/17 at 06:00; Stop 06/23/17 at 06:59 ; Status DC Insulin Aspart (NovoLOG SUPPLEMENTAL SCALE) 1 Q6HR SQ Last administered on 06:16; Start 06/23/17 at 12:00; Stop 07/05/17 at 16:27; Status DC Sodium Chloride 1,000 ml @ 999 mls/hr BOLUS ONCE IV Last administered on 06/23 08:49; Start 06/23/17 at 08:00; Stop 06/23/17 at 09:00; Status DC Sodium Bicarbonate 100 meq/Sterile Water 950 ml @ 110 mls/hr Q8H39M IV Last administered on 06/24/17 02:48; Start 06/23/17 at 07:30; Stop 06/24/17 at 09:10; Status DC Potassium Chloride (KCl Powder) 40 meq ONCE ONCE PO Last administered on 06:45; Start 06/24/17 at 06:45; Stop 06/24/17 at 06:46; Status DC Sodium Phosphate 15 mmol/Sodium Chloride 155 ml @ 38.75 mls/ hr ONCE ONCE IV Last administered on 06/24/17 08:27; Start 06/24/17 at 08:00; Stop 06/24/17 at 11: 59; Status DC Water (Free Water) VOLUME: 200 ML Q4HR G-TUBE Last administered on 07/02/17 16: 00; Start 06/24/17 at 12:00; Stop 07/05/17 at 10:15; Status DC Sodium Chloride 1,000 ml @ 999 mls/hr BOLUS ONCE IV Last administered on 10:41; Start 06/24/17 at 09:15; Stop 06/24/17 at 10:15; Status DC Metoprolol Tartrate (Lopressor) 12.5 mg Q12HR PO Last administered on 06/27/17 20:02; Start 06/24/17 at 21:00; Stop 06/29/17 at 07:55; Status DC Miscellaneous (Pill Splitter) 1 ea UNSCH PRN OTHER SEE LABEL COMMENTS; Start at 15:00 Pharmacy Profile Note 0 ml @ 0 mls/hr UNSCH OTHER ; Start 06/24/17 at 22:30; Stop 06/27/17 at 13:12; Status DC Vancomycin HCl 1000 mg/Sodium Chloride 250 ml @ 250 mls/hr ONCE ONCE IV Last administered on 06/24/17 22:46; Start 06/24/17 at 22:30; Stop 06/24/17 at 23:29; Status DC Potassium Phosphate 30 mmol/ Sodium Chloride 260 ml @ 43.333 mls/ hr ONCE ONCE IV Last administered on 06/25/17 11:00; Start 06/25/17 at 11:00; Stop at 16:59; Status DC Vancomycin HCl 1000 mg/Sodium Chloride 250 ml @ 250 mls/hr Q24H IV Last administered on 06/27/17 06:11; Start 06/26/17 at 02:00; Stop 06/27/17 at 09:08; Status DC Miscellaneous Information SPECIFIC LAB TO BE DRAWN: VANCO TROUGH DATE... ONCE ONCE .XX ; Start 06/27/17 at 01:45; Stop 06/27/17 at 01:46; Status DC Lisinopril (Prinivil) 5 mg DAILY OG-TUBE Last administered on 06/28/17 08:00; Start 06/27/17 at 09:00; Stop 06/28/17 at 08:48; Status DC Potassium Chloride (KCl Powder) 30 meq ONCE ONCE NG Last administered on 14:00; Start 06/26/17 at 14:00; Stop 06/26/17 at 14:01; Status DC Pantoprazole Sodium (Protonix Inj) 40 mg Q12H IV PUSH Last administered on 10:37; Start 06/26/17 at 23:00; Stop 06/27/17 at 13:02; Status DC Vancomycin HCl 1000 mg/Sodium Chloride 250 ml @ 250 mls/hr Q18H IV ; Start 06/28 at 00:00; Stop 06/28/17 at 00:00; Status DC Miscellaneous Information SPECIFIC LAB TO BE JAYLEN... ONCE ONCE .XX ; Start at 11:45; Stop 06/29/17 at 11:46; Status Cancel Levofloxacin/ Dextrose 150 ml @ 100 mls/hr Q24H IV Last administered on 14:04; Start 06/27/17 at 14:00; Stop 07/15/17 at 15:55; Status DC Pantoprazole Sodium 80 mg/ Sodium Chloride 100 ml @ 10 mls/hr Q10H IV Last administered on 06/28/17 22:58; Start 06/27/17 at 16:00; Stop 06/29/17 at 07:21; Status DC Potassium Chloride 100 ml @ 50 mls/hr Q2H PRN IV For Potassium 2.8 - 3.2 mEq/L ; Start 06/28/17 at 03:30; Stop 06/30/17 at 12:31; Status DC Potassium Chloride 100 ml @ 50 mls/hr Q2H PRN IV For Potassium 2.8 - 3.2 mEq/L ; Start 06/28/17 at 03:30; Stop 06/30/17 at 12:31; Status DC Potassium Bicarb/ Potassium Chloride (K-Lyte Cl Eff) 50 meq UNSCH PRN PO For Potassium 3.3 - 3.5 mEq/L; Start 06/28/17 at 03:30; Stop 06/30/17 at 12:31; Status DC Potassium Chloride 100 ml @ 25 mls/hr UNSCH PRN IV For Potassium 3.3 - 3.5 mEq /L; Start 06/28/17 at 03:30; Stop 06/30/17 at 12:31; Status DC Potassium Chloride 100 ml @ 50 mls/hr Q2H PRN IV For Potassium 3.3 - 3.5 mEq/ L Last administered on 06/28/17 07:10; Start 06/28/17 at 03:30; Stop 06/30/17 at 12:31; Status DC Magnesium Sulfate 4 gm/Sodium Chloride 100 ml @ 50 mls/hr UNSCH PRN IV For Magnesium 0.9 - 1.1 mg/dL; Start 06/28/17 at 03:30; Stop 06/30/17 at 12:31; Status DC Magnesium Oxide (Mag-Ox) 800 mg UNSCH PRN PO For Magnesium 1.2 - 1.6 mg/dL; Start 06/28/17 at 03:30; Stop 06/30/17 at 12:31; Status DC Magnesium Sulfate 2 gm/Sodium Chloride 100 ml @ 50 mls/hr UNSCH PRN IV For Magnesium 1.2 - 1.6 mg/dL; Start 06/28/17 at 03:30; Stop 06/30/17 at 12:31; Status DC Potassium Phosphate (K-Phos) 2,000 mg Q4H PRN PO For Phosphorus < 2.5 mg/dL; Start 06/28/17 at 03:30; Stop 06/30/17 at 12:31; Status DC Sodium Phosphate 30 mmol/Sodium Chloride 250 ml @ 42 mls/hr UNSCH PRN IV For Phosphorus < 2.5 mg/dL; Start 06/28/17 at 03:30; Stop 06/30/17 at 12:31; Status DC Potassium Phosphate (K-Phos) 2,000 mg UNSCH PRN PO/TUBE SEE LABEL COMMENTS; Start 06/28/17 at 03:30; Stop 06/30/17 at 12:31; Status DC Potassium Phosphate 30 mmol/ Sodium Chloride 260 ml @ 42 mls/hr UNSCH PRN IV SEE LABEL COMMENTS; Start 06/28/17 at 03:30; Stop 06/30/17 at 12:31; Status DC Lisinopril (Prinivil) 10 mg DAILY OG-TUBE ; Start 06/28/17 at 10:00; Stop at 13:47; Status DC Potassium Chloride/Sodium Chloride 1,000 ml @ 84 mls/hr [id number] IV Last administered on 06/28/17 13:22; Start 06/28/17 at 13:00; Stop 06/28/17 at 21:10; Status DC Aspirin (Aspirin Supp) 300 mg DAILY RECTAL Last administered on 06/29/17 09:20 ; Start 06/29/17 at 09:00; Stop 07/01/17 at 15:26; Status DC Dexamethasone Sodium Phosphate (Decadron Inj) 6 mg NOW ONCE IV Last administered on 06/28/17 21:55; Start 06/28/17 at 21:15; Stop 06/28/17 at 21:16; Status DC Dexamethasone Sodium Phosphate (Decadron Inj) 6 mg Q6H IV Last administered on 06/30/17 02:49; Start 06/29/17 at 03:00; Stop 06/30/17 at 03:01; Status DC Pantoprazole Sodium (Protonix Inj) 40 mg Q12H IV PUSH Last administered on 07/17 08:36; Start 06/29/17 at 08:00; Stop 07/17/17 at 09:44; Status DC Metoprolol Tartrate (Lopressor) 25 mg Q8HR PO Last administered on 08/10/17 05:42; Start 06/29/17 at 14:00 Hydralazine HCl (Apresoline Inj) 20 mg Q4H PRN IV PUSH SBP >160; Start 06/29/17 at 08:00; Stop 06/30/17 at 20:50; Status DC Haloperidol Lactate (Haldol Inj) 5 mg Q6H PRN IM AGITATION Last administered on 07/01/17 21:23; Start 06/30/17 at 12:30 Dextrose/Sodium Chloride 1,000 ml @ 100 mls/hr Q10H IV Last administered on 09:00; Start 06/30/17 at 13:00; Stop 07/01/17 at 15:26; Status DC Albuterol/ Ipratropium (Duoneb Neb) 1 ampule Q4HR NEB NEB Last administered on 07/04/17 08:31; Start 06/30/17 at 12:30; Stop 07/04/17 at 12:29; Status DC Morphine Sulfate (Morphine Inj) 2 mg Q3H PRN IV PUSH PAIN GREATER THAN 5 Last administered on 07/17/17 09:04; Start 06/30/17 at 12:30; Stop 07/17/17 at 09:44 ; Status DC Enalaprilat (Vasotec Inj) 2.5 mg Q6H PRN IV PUSH SBP > 160 Last administered on 07/14/17 12:10; Start 06/30/17 at 21:00 Lactulose (Lactulose Liq) 30 ml BID PO Last administered on 07/18/17 09:52; Start 07/01/17 at 21:00; Stop 07/18/17 at 11:37; Status DC Potassium Chloride 100 ml @ 50 mls/hr Q2H IV Last administered on 07/02/17 21: 31; Start 07/02/17 at 17:30; Stop 07/02/17 at 21:29; Status DC Magnesium Oxide (Mag-Ox) 400 mg ONCE ONCE PO Last administered on 07/02/17 16: 48; Start 07/02/17 at 16:15; Stop 07/02/17 at 16:16; Status DC Rifaximin (Xifaxan) 550 mg BID PO Last administered on 08/09/17 20:34; Start 07/03/17 at 09:00 Potassium Bicarb/ Potassium Chloride (K-Lyte Cl Eff) 75 meq ONCE ONCE PO ; Start 07/03/17 at 14:15; Stop 07/03/17 at 14:15; Status DC Potassium Chloride 100 ml @ 50 mls/hr Q2H IV Last administered on 07/03/17 23 :12; Start 07/03/17 at 15:00; Stop 07/03/17 at 18:59; Status DC Potassium Bicarbonate (Effer-K Eff) 75 meq ONCE ONCE PO Last administered on 14:52; Start 07/03/17 at 15:00; Stop 07/03/17 at 15:01; Status DC Potassium Bicarbonate (Effer-K Eff) 25 meq ONCE ONCE PO Last administered on 12:00; Start 07/05/17 at 10:15; Stop 07/05/17 at 10:17; Status DC Lisinopril (Prinivil) 10 mg DAILY PO Last administered on 08/08/17 08:34; Start 07/07/17 at 09:00 Lisinopril (Prinivil) 10 mg ONCE ONCE PO Last administered on 07/06/17 14:00 ; Start 07/06/17 at 14:00; Stop 07/06/17 at 14:01; Status DC Furosemide (Lasix Inj) 40 mg ONCE ONCE IV PUSH Last administered on 07/08/17 03:30; Start 07/08/17 at 04:30; Stop 07/08/17 at 04:31; Status DC Cefazolin Sodium (Ancef Inj) 1,000 mg ONCE ONCE IV Last administered on 13:04; Start 07/08/17 at 13:03; Stop 07/08/17 at 13:04; Status DC Propofol (Diprivan 200 Mg/20 ml Inj) 120 mg STK-MED ONCE IV ; Start 07/08/17 at 11:53; Stop 07/08/17 at 13:05; Status DC Albuterol/ Ipratropium (Duoneb Neb) 1 ampule ONCE ONCE NEB ; Start 07/09/17 at 14:30; Stop 07/09/17 at 14:31; Status Cancel Albuterol/ Ipratropium (Duoneb Neb) 1 ampule Q2HR NEB PRN NEB SOB/WHEEZING Last administered on 08/08/17 18:22; Start 07/09/17 at 14:00 Albuterol/ Ipratropium (Duoneb Neb) 1 ampule Q6HR WHILE AWAKE NEB NEB Last administered on 07/13/17 08:44; Start 07/09/17 at 14:00; Stop 07/13/17 at 13:59 ; Status DC Amoxicillin/ Clavulanate Potassium (Augmentin) 875 mg Q12HR PO Last administered on 07/16/17 08:19; Start 07/09/17 at 14:00; Stop 07/16/17 at 13:59 ; Status DC Lactobacillus Acidophilus (Lactinex Pkt) 1 gm BID PO Last administered on 08/09 20:34; Start 07/09/17 at 21:00 Methylprednisolone Sodium Succinate (SoluMEDROL INJ) 40 mg ONCE ONCE IV PUSH Last administered on 07/09/17 17:06; Start 07/09/17 at 14:00; Stop 07/09/17 at 14:24; Status DC Potassium Chloride (KCl Powder) 60 meq ONCE ONCE PO Last administered on 13:49; Start 07/10/17 at 10:30; Stop 07/10/17 at 10:31; Status DC Potassium Phosphate (K-Phos) 500 mg ONCE ONCE PO Last administered on 12:29; Start 07/10/17 at 10:30; Stop 07/10/17 at 10:31; Status DC Magnesium Oxide (Mag-Ox) 400 mg ONCE ONCE PO Last administered on 07/10/17 12 :29; Start 07/10/17 at 10:30; Stop 07/10/17 at 10:31; Status DC Potassium Phosphate (K-Phos) 500 mg ONCE ONCE PO Last administered on 12:44; Start 07/11/17 at 11:15; Stop 07/11/17 at 11:32; Status DC Potassium Bicarb/ Potassium Chloride (K-Lyte Cl Eff) 25 meq ONCE ONCE PO Last administered on 07/13/17 14:47; Start 07/13/17 at 12:00; Stop 07/13/17 at 12:01; Status DC Hydralazine HCl (Apresoline) 10 mg Q6HR PRN PO SBP>160, DBP>90; Start 07/14/17 at 15:45 Pantoprazole Sodium (Protonix) 40 mg Q12HR PO Last administered on 08/09/17 20:34; Start 07/17/17 at 21:00 Oxycodone/ Acetaminophen (Percocet 7.5-325 Mg) 1 tab Q4H PRN PO pain>5 Last administered on 08/10/17 06:59; Start 07/17/17 at 09:45 Lactulose (Lactulose Liq) 30 ml DAILY PO Last administered on 08/09/17 09:05 ; Start 07/19/17 at 09:00 Temazepam (Restoril) 15 mg HS PRN PO INSOMNIA Last administered on 08/08/17 23:42; Start 07/18/17 at 14:00 Pneumococcal Polyvalent Vaccine (Pneumovax-23 Inj) 25 mcg ONCE ONCE IM ; Start 07/20/17 at 10:00; Stop 07/20/17 at 10:01; Status Cancel Influenza Virus Vaccine (Flu (Quadrivalent) Vaccine Inj) 0.5 ml ONCE ONCE IM ; Start 07/20/17 at 10:00; Stop 07/20/17 at 10:01; Status Cancel Influenza Virus Vaccine (Flu (Quadrivalent) Vaccine Inj) 0.5 ml ONCE ONCE IM Last administered on 07/19/17 11:00; Start 07/19/17 at 09:00; Stop 07/19/17 at 09:01; Status DC Pneumococcal Polyvalent Vaccine (Pneumovax-23 Inj) 25 mcg ONCE ONCE IM ; Start 07/18/17 at 19:15; Stop 07/18/17 at 19:15; Status DC Pneumococcal Polyvalent Vaccine (Pneumovax-23 Inj) 25 mcg ONCE ONCE IM Last administered on 07/19/17 09:23; Start 07/19/17 at 09:00; Stop 07/19/17 at 09:01 ; Status DC IV Flush (NS Flush) 5 ml UNSCH PRN IV FLUSH FLUSH AFTER USING IV ACCESS; Start 07/25/17 at 11:15 Zolpidem Tartrate (Ambien) 5 mg HS PRN PO INSOMNIA Last administered on 22:53; Start 08/02/17 at 11:15; Stop 08/08/17 at 10:43; Status DC Guaifenesin/ Dextromethorphan (Robitussin Dm 200-20 Mg/10 ml Liq) 10 ml Q6H PRN PO cough ; Start 08/06/17 at 14:15 Diatrizoate Meglum/ Diatrizoate Sod ( Gastroview Liq) 18 ml ONCE ONCE PO Last administered on 08/07/17 16:19; Start 08/07/17 at 16:30; Stop 08/07/17 at 16:31; Status DC Zolpidem Tartrate (Ambien) 10 mg HS PRN PO INSOMNIA Last administered on 20:39; Start 08/08/17 at 11:00 Iohexol (Omnipaque 350 Inj) 72 ml STK-MED ONCE IVCONTRAST Last administered on 08/08/17 11:23; Start 08/08/17 at 11:23; Stop 08/08/17 at 11:30; Status DC A/P Problem List: (1) Thrombocytopenia ICD Code: D69.6 - Thrombocytopenia, unspecified (2) Polycythemia ICD Code: D75.1 - Secondary polycythemia (3) CVA (cerebral vascular accident) ICD Code: I63.9 - Cerebral infarction, unspecified (4) Stroke ICD Code: I63.9 - Cerebral infarction, unspecified Status: Acute (5) Incontinence ICD Code: R32 - Unspecified urinary incontinence (6) Cystitis ICD Code: N30.90 - Cystitis, unspecified without hematuria Assessment and Plan A/P CVA , with expressive aphasia and right hemiparesis, dysphagia. Continue with aspirin LDL 36 therefore statin is not indicated PT/OT/speech therapy Appreciate input from neurology Continue current treatment Possible aspiration pneumonia-treated. s/p Augmentin 07/16/17 Hyperammonemia-resolved Continue lactulose daily Monitor ammonia level as needed. Acute hypoxemic respiratory failure Resolved Continue with DuoNeb when necessary and maintain oxygen saturation above 92% Hypertension Cardiomyopathy 2-D echo revealed LVEF of 45%. Continue beta marilou. PRN antihypertensives Appreciate input from cardiology who signed off Dysphagia-improving. PEG has been removed. diet per ST. drainage from the site of PEG/ low grade fever- no recurrent fever and abdominal pain has resolved. CT of the abdomen as noted above. GI signed off. f/u with GI as outpatient. History of chronic of chronic benzodiazepine use Advised on cessation Upper GI bleed Elevated transaminases Elevated ammonia Hypoalbuminemia Hepatitis C antibody positive Rectal bleeding Currently on Protonix Appreciate input from GI who signed off s/p EGD with gastritis and esophagitis. HIDA scan 06/28 with distended gallbladder-no evidence of acute cholecystitis s/p PEG placement / removal History of incontinence Resolved Acute kidney injury Resolved Thrombocytopenia resolved. insomnia; ambien as needed. Prophylaxis - GI - PO Protonix - DVT - SCD/heparin subcutaneous on hold due to GI bleed. Discharge Planning awaiting placement- pending SSI. Problem Qualifiers (1) CVA (cerebral vascular accident): Qualified Codes: I63.9 - Cerebral infarction, unspecified (2) Stroke: Qualified Codes: I63.9 - Cerebral infarction, unspecified (3) Incontinence: Qualified Codes: R32 - Unspecified urinary incontinence Madhu Villaseñor MD Aug 10, 2017 09:20
[2017-08-10] MEDS: RIFAXIMIN 550 MG TAB PO SCH ×4 (10:26→22:07)
[2017-08-10] MEDS: ASPIRIN 81 MG CHEW TAB PO SCH ×2 (10:26)
[2017-08-10] MEDS: PANTOPRAZOLE SOD 40 MG DELAYED RELEASE TAB PO SCH ×4 (10:26→22:07)
[2017-08-10] MEDS: LACTULOSE SYRUP 20 GM/30 ML CUP PO SCH ×2 (10:27)
[2017-08-10] MEDS: LISINOPRIL 10 MG TAB PO SCH ×2 (10:27)
[2017-08-10 12:52] VITALS: BP 123/72; PULSE 74; RESP 20; TEMP 97.4; O2SAT 96
[2017-08-10 15:50] VITALS: BP 101/65; PULSE 76; RESP 20; TEMP 98.2; O2SAT 95
[2017-08-10 20:12] VITALS: O2SAT 94
[2017-08-10] MEDS: RESP: ALBUTEROL 2.5 MG/IPRATROPIUM 0.5 MG NEB (PRN) NEB ×2 (20:12)
[2017-08-10 20:44] VITALS: BP 99/65; PULSE 75; RESP 16; TEMP 98.2; O2SAT 95
[2017-08-10] MEDS: ZOLPIDEM TARTRATE 5 MG TAB PO PRN ×2 (22:32)
[2017-08-11] VITALS (7 sets, daily range): BP systolic 92–113; BP diastolic 56–68; PULSE 72–81; RESP 16–20; TEMP 97.2–98.4; O2SAT 97–99
[2017-08-11] MEDS: oxyCODONE/ACETAMINOPHEN 7.5 MG/325 MG TAB PO PRN ×12 (02:11→22:42)
[2017-08-11] MEDS: METOPROLOL TARTRATE 25 MG TAB PO SCH ×6 (06:00→21:59)
[2017-08-11] MEDS: LACTULOSE SYRUP 20 GM/30 ML CUP PO SCH ×2 (08:23)
[2017-08-11] MEDS: LISINOPRIL 10 MG TAB PO SCH ×2 (08:24)
[2017-08-11] MEDS: LACTOBACILLUS ACIDOPHILUS 1 GM PACKET PO SCH ×4 (08:24→22:01)
[2017-08-11] MEDS: PANTOPRAZOLE SOD 40 MG DELAYED RELEASE TAB PO SCH ×4 (08:24→21:59)
[2017-08-11] MEDS: RIFAXIMIN 550 MG TAB PO SCH ×4 (08:24→21:59)
[2017-08-11] MEDS: ASPIRIN 81 MG CHEW TAB PO SCH ×2 (08:24)
[2017-08-11] MEDS: ARTIFICIAL TEARS OPTH SOLN 15 ML BTL EACH EYE SCH ×6 (08:25→17:40)
[2017-08-11] MEDS: SODIUM CHLORIDE 0.9% FLUSH 10 ML FLUSH IV FLUSH SCH ×4 (08:25→21:00)
--- NOTE | 2017-08-11 08:56 | HHI.PR ---
Subjective Remarks resting comfortably with no distress. denies pain. no new complaints. Objective Vitals Vital Signs Date Time Temp Pulse Resp B/P (MAP) Pulse Ox O2 Delivery O2 Flow Rate FiO2 08/11/17 07:52 Room Air 08/11/17 06:39 92/58 (69) 08/11/17 05:43 97.4 77 18 97 08/11/17 00:37 97.2 72 16 105/67 (80) 97 08/10/17 21:00 97 Room Air 08/10/17 20:44 98.2 75 16 99/65 (76) 95 08/10/17 20:12 94 Nasal Cannula 3.00 08/10/17 16:09 18 08/10/17 15:50 98.2 76 20 101/65 (77) 95 08/10/17 12:52 97.4 74 20 123/72 (89) 96 I/O 08/10/17 08/10/17 08/10/17 08/11/17 08/11/17 08/11/17 07:00 15:00 23:00 07:00 15:00 23:00 Intake Total 800 ml 720 ml 240 ml Balance 800 ml 720 ml 240 ml Intake Oral 800 ml 720 ml 240 ml # Voids 3 4 1 1 # Bowel Movements 0 0 0 Imaging Last Impressions Abdomen/Pelvis CT 08/08/17 0000 Signed Impressions: Service Date/Time: Tuesday, August 08, 2017 11:16 - CONCLUSION: PEG tube site remains patent from stomach to the anterior abdominal wall with induration in the rectus. Patchy airspace disease in both lungs. Rudy Meng MD FACR Abdomen X-Ray 08/06/17 0000 Signed Impressions: Service Date/Time: Sunday, August 06, 2017 00:36 - CONCLUSION: PEG tube overlying the left lower abdomen. Christopher Sarmiento MD Modified Barium Swallow 07/19/17 0000 Signed Impressions: Service Date/Time: Wednesday, July 19, 2017 00:00 - CONCLUSION: Penetration and aspiration as above within liquids, penetration with nectar thick consistency. Jude Braxton MD Chest X-Ray 07/09/17 0000 Signed Impressions: Service Date/Time: Sunday, July 09, 2017 14:04 - CONCLUSION: 1. Stable mild central bibasilar patchy airspace disease. 2. No significant interval change. Gustavo Bozorgmanesh, MD Head CT 07/06/17 0000 Signed Impressions: Service Date/Time: Thursday, July 06, 2017 09:07 - CONCLUSION: 1. 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 2. Mucous retention cyst within left maxillary and right sphenoid sinuses. Juan Pablo Huffman MD Hepatobiliary Scan Nuclear Medicine 06/28/17 0900 Signed Impressions: Service Date/Time: Wednesday, June 28, 2017 10:17 - CONCLUSION: Nonspecific persistent distention of the gallbladder. No evidence of acute cholecystitis or biliary obstruction. Christopher Gutierrez MD Lung Scan-VQ Nuclear Medicine 06/24/17 0000 Signed Impressions: Service Date/Time: Saturday, June 24, 2017 12:21 - CONCLUSION: 1. Low probability of pulmonary embolism Jose Richard MD Head Magnetic Resonance Angiography 06/24/17 0000 Signed Impressions: Service Date/Time: Saturday, June 24, 2017 13:37 - CONCLUSION: Negative for major branch vessels obstruction in spite of MRI findings. Rudy Meng MD FACR Brain MRI 06/24/17 0000 Signed Impressions: Service Date/Time: Saturday, June 24, 2017 13:37 - CONCLUSION: Findings consistent with acute infarct left sylvian region anteriorly without hemorrhage. Rudy Meng MD FACR Carotid Artery Ultrasound 06/22/17 0000 Signed Impressions: Service Date/Time: Thursday, June 22, 2017 15:56 - CONCLUSION: No evidence of flow-limiting carotid stenosis. Christopher Leonardo MD Abdomen Ultrasound 06/22/17 Signed Impressions: Service Date/Time: Thursday, June 22, 2017 16:30 - CONCLUSION: Distended gallbladder with wall thickening and internal debris. Mild calyceal dilatation involving the kidneys bilaterally Christopher Leonardo MD Objective Remarks GENERAL: This is a well-nourished, well-developed patient, in no apparent distress. CARDIOVASCULAR: Regular rate and regular rhythm without murmurs, gallops, or rubs. RESPIRATORY: Clear to auscultation. Breath sounds equal bilaterally. No wheezes , rales, or rhonchi. GASTROINTESTINAL: Abdomen soft, non-tender, nondistended. Normal, active bowel sounds- some drainage from the site of PEG. MUSCULOSKELETAL: Extremities without clubbing, cyanosis, or edema. NEURO: Alert & Oriented x4 to person, place, time, situation. Moves all ext x4 Procedures PEG tube insertion. Medications and IVs Current Medications Propofol 100 ml @ As Directed STK-MED ONCE .ROUTE Last administered on 12:43; Start 06/22/17 at 12:25; Stop 06/22/17 at 12:26; Status DC IV Flush (NS Flush) 2 ml UNSCH PRN IV FLUSH FLUSH AFTER USING IV ACCESS; Start 06/22/17 at 12:30; Stop 06/22/17 at 15:32; Status DC Sodium Chloride 1,000 ml @ 1,000 mls/hr Q1H IV Last administered on 06/22/17 12:43; Start 06/22/17 at 12:25; Stop 06/22/17 at 13:24; Status DC Etomidate (Amidate Inj) 20 mg ONCE ONCE IVP Last administered on 06/22/17 12: 44; Start 06/22/17 at 12:30; Stop 06/22/17 at 12:34; Status DC Albuterol/ Ipratropium (Duoneb Neb) 1 ampule Q15M INH Last administered on 06/22 13:16; Start 06/22/17 at 12:30; Stop 06/22/17 at 13:01; Status DC Sodium Chloride (NS Flush) 2 ml UNSCH PRN IVF FLUSH AFTER USING IV ACCESS Last administered on 06/22/17 12:44; Start 06/22/17 at 12:30; Stop 06/22/17 at 15:32 ; Status DC Sodium Chloride 1,000 ml @ 999 mls/hr Q1H1M IV Last administered on 06/22/17 12:56; Start 06/22/17 at 12:45; Stop 06/22/17 at 13:45; Status DC Sodium Chloride 1,000 ml @ 999 mls/hr Q1H1M IV Last administered on 06/22/17 12:56; Start 06/22/17 at 12:45; Stop 06/22/17 at 13:45; Status DC Methylprednisolone Sodium Succinate (SoluMEDROL INJ) 125 mg ONCE ONCE IV PUSH Last administered on 06/22/17 12:56; Start 06/22/17 at 12:45; Stop 06/22/17 at 12:46; Status DC Hydromorphone HCl (Dilaudid Pf Inj) 0.5 mg ONCE ONCE IV PUSH Last administered on 06/22/17 12:56; Start 06/22/17 at 12:45; Stop 06/22/17 at 12:46 ; Status DC Succinylcholine Chloride (Quelicin Inj) 200 mg STK-MED ONCE .ROUTE Last administered on 06/22/17 12:20; Start 06/22/17 at 13:15; Stop 06/22/17 at 13:16 ; Status DC Vancomycin HCl 850 mg/Sodium Chloride 258.5 ml @ 250 mls/hr ONCE ONCE IV Last administered on 06/22/17 16:06; Start 06/22/17 at 15:15; Stop 06/22/17 at 16:17; Status DC Cefepime HCl 1000 mg/Sodium Chloride 100 ml @ 200 mls/hr ONCE ONCE IV Last administered on 06/22/17 15:08; Start 06/22/17 at 15:15; Stop 06/22/17 at 15:46 ; Status DC Sodium Chloride 1,000 ml @ 84 mls/hr [id number] IV Last administered on 03:06; Start 06/22/17 at 15:09; Stop 06/23/17 at 07:25; Status DC Sodium Chloride (NS Flush) 2 ml UNSCH PRN IV FLUSH FLUSH AFTER USING IV ACCESS Last administered on 07/11/17 06:10; Start 06/22/17 at 15:15 Sodium Chloride (NS Flush) 2 ml BID IV FLUSH Last administered on 08/11/17 08 :25; Start 06/22/17 at 21:00 Acetaminophen (Tylenol) 650 mg Q6H PRN PO PAIN 1-10 AND/OR FEVER >101F; Start 06/22/17 at 15:15; Stop 06/23/17 at 07:23; Status DC Famotidine (Pepcid Inj) 10 mg Q12HR IV PUSH Last administered on 06/26/17 20:36 ; Start 06/22/17 at 21:00; Stop 06/26/17 at 22:58; Status DC Lorazepam (Ativan Inj) 1 mg Q1H PRN IV Agitation/Sedation Last administered on 06/30/17 07:50; Start 06/22/17 at 15:15; Stop 06/30/17 at 12:29; Status DC Artificial Tears (Tears Naturale Opth Soln) 1 drop TID EACH EYE Last administered on 08/11/17 08:25; Start 06/22/17 at 18:00 Ondansetron HCl (Zofran Inj) 4 mg Q6H PRN IV NAUSEA OR VOMITING; Start at 15:15 Albuterol/ Ipratropium (Duoneb Neb) 1 ampule Q6HR NEB INH Last administered on 06/26/17 15:29; Start 06/22/17 at 16:00; Stop 06/26/17 at 15:59; Status DC Albuterol Sulfate (Albuterol Neb) 2.5 mg Q2HR NEB PRN INH SOB/WHEEZING Last administered on 07/09/17 11:13; Start 06/22/17 at 15:15; Stop 07/09/17 at 14:25 ; Status DC Heparin Sodium (Porcine) (Heparin Inj) 5,000 units Q12H SQ Last administered on 06/29/17 14:38; Start 06/22/17 at 15:15; Status Future Hold Miscellaneous Information 1 [id number] Last administered on 06/22/17 15:15; Start 06/22/17 at 15:15 Chlorhexidine Gluconate (Chlorhexidine 2% Cloth) Taper DAILY@04 TOP Last administered on 07/19/17 04:00; Start 06/23/17 at 04:00; Stop 06/19/18 at 03:59 Chlorhexidine Gluconate (Chlorhexidine 2% Cloth) 3 pack UNSCH PRN TOP HYGIENIC CARE; Start 06/22/17 at 15:15 Senna/Docusate Sodium (Indy-Colace) 1 tab BID PO Last administered on 06/29/17 22:42; Start 06/22/17 at 21:00; Stop 06/30/17 at 11:09; Status DC Magnesium Hydroxide (Milk Of Magnesia Liq) 30 ml Q12H PRN PO MILD - MODERATE CONSTIPATION; Start 06/22/17 at 15:15 Sennosides (Senokot) 17.2 mg Q12H PRN PO MODERATE - SEVERE CONSTIPATION Last administered on 08/08/17 23:41; Start 06/22/17 at 15:15 Bisacodyl (Dulcolax Supp) 10 mg DAILY PRN RECTAL SEVERE CONSITIPATION Last administered on 07/24/17 08:28; Start 06/22/17 at 15:15 Lactulose (Lactulose Liq) 30 ml DAILY PRN PO SEVERE CONSITIPATION; Start at 15:15 Chlorhexidine Gluconate (Peridex 0.12% Liq) 15 ml BID@08,20 MT Last administered on 08/03/17 08:00; Start 06/22/17 at 20:00; Stop 08/10/17 at 11: 29; Status DC Propofol 100 ml @ 1.65 mls/hr TITRATE PRN IV SEDATION; Start 06/22/17 at 15:15 ; Stop 06/23/17 at 17:57; Status DC Fentanyl Citrate 250 ml @ 5 mls/hr TITRATE PRN IV SEDATION; Start 06/22/17 at 15:15; Stop 06/27/17 at 13:02; Status DC IV Flush (NS Flush) 2 ml BID IV FLUSH ; Start 06/22/17 at 21:00; Status UNV IV Flush (NS Flush) 2 ml UNSCH PRN IV FLUSH FLUSH AFTER USING IV ACCESS; Start 06/22/17 at 15:45; Status UNV Labetalol HCl (Trandate Inj) 10 mg Q2H PRN IV For SBP > 220 or DBP > 120; Start 06/22/17 at 15:45 Nicardipine HCl 25 mg/Sodium Chloride 260 ml @ 52 mls/hr TITRATE PRN IV Maintain BP goal; Start 06/22/17 at 16:00; Stop 08/10/17 at 11:29; Status DC Aspirin (Aspirin Chew) 81 mg DAILY PO Last administered on 08/11/17 08:24; Start 06/23/17 at 09:00; Status Future hold Insulin Aspart (NovoLOG SUPPLEMENTAL SCALE) 1 ACHS SQ Last administered on 06/22 16:54; Start 06/22/17 at 16:00; Stop 06/23/17 at 07:23; Status DC Dextrose (D50w (Vial) Inj) 50 ml UNSCH PRN IV PUSH HYPOGLYCEMIA-SEE COMMENTS; Start 06/22/17 at 15:45 Glucagon (Glucagon Inj) 1 mg UNSCH PRN OTHER HYPOGLYCEMIA-SEE COMMENTS; Start 06/22/17 at 15:45 Piperacillin Sod/ Tazobactam Sod 50 ml @ 100 mls/hr Q6H IV Last administered on 06/29/17 05:17; Start 06/22/17 at 17:00; Stop 06/29/17 at 08:00; Status DC Lactulose (Lactulose Liq) 30 ml QID PO Last administered on 06/29/17 22:42; Start 06/22/17 at 18:00; Stop 07/01/17 at 15:26; Status DC Propofol 100 ml @ 1.65 mls/hr TITRATE PRN IV Ordered RASS Last administered on 06/28/17 05:59; Start 06/22/17 at 17:15; Stop 06/29/17 at 07:21; Status DC Calcium Gluconate 2 gm/Sodium Chloride 120 ml @ 120 mls/hr ONCE ONCE IV Last administered on 06/23/17 05:32; Start 06/23/17 at 06:00; Stop 06/23/17 at 06:59 ; Status DC Insulin Aspart (NovoLOG SUPPLEMENTAL SCALE) 1 Q6HR SQ Last administered on 06:16; Start 06/23/17 at 12:00; Stop 07/05/17 at 16:27; Status DC Sodium Chloride 1,000 ml @ 999 mls/hr BOLUS ONCE IV Last administered on 06/23 08:49; Start 06/23/17 at 08:00; Stop 06/23/17 at 09:00; Status DC Sodium Bicarbonate 100 meq/Sterile Water 950 ml @ 110 mls/hr Q8H39M IV Last administered on 06/24/17 02:48; Start 06/23/17 at 07:30; Stop 06/24/17 at 09:10; Status DC Potassium Chloride (KCl Powder) 40 meq ONCE ONCE PO Last administered on 06:45; Start 06/24/17 at 06:45; Stop 06/24/17 at 06:46; Status DC Sodium Phosphate 15 mmol/Sodium Chloride 155 ml @ 38.75 mls/ hr ONCE ONCE IV Last administered on 06/24/17 08:27; Start 06/24/17 at 08:00; Stop 06/24/17 at 11: 59; Status DC Water (Free Water) VOLUME: 200 ML Q4HR G-TUBE Last administered on 07/02/17 16: 00; Start 06/24/17 at 12:00; Stop 07/05/17 at 10:15; Status DC Sodium Chloride 1,000 ml @ 999 mls/hr BOLUS ONCE IV Last administered on 10:41; Start 06/24/17 at 09:15; Stop 06/24/17 at 10:15; Status DC Metoprolol Tartrate (Lopressor) 12.5 mg Q12HR PO Last administered on 06/27/17 20:02; Start 06/24/17 at 21:00; Stop 06/29/17 at 07:55; Status DC Miscellaneous (Pill Splitter) 1 ea UNSCH PRN OTHER SEE LABEL COMMENTS; Start at 15:00 Pharmacy Profile Note 0 ml @ 0 mls/hr UNSCH OTHER ; Start 06/24/17 at 22:30; Stop 06/27/17 at 13:12; Status DC Vancomycin HCl 1000 mg/Sodium Chloride 250 ml @ 250 mls/hr ONCE ONCE IV Last administered on 06/24/17 22:46; Start 06/24/17 at 22:30; Stop 06/24/17 at 23:29; Status DC Potassium Phosphate 30 mmol/ Sodium Chloride 260 ml @ 43.333 mls/ hr ONCE ONCE IV Last administered on 06/25/17 11:00; Start 06/25/17 at 11:00; Stop at 16:59; Status DC Vancomycin HCl 1000 mg/Sodium Chloride 250 ml @ 250 mls/hr Q24H IV Last administered on 06/27/17 06:11; Start 06/26/17 at 02:00; Stop 06/27/17 at 09:08; Status DC Miscellaneous Information SPECIFIC LAB TO BE DRAWN: VANCO TROUGH DATE... ONCE ONCE .XX ; Start 06/27/17 at 01:45; Stop 06/27/17 at 01:46; Status DC Lisinopril (Prinivil) 5 mg DAILY OG-TUBE Last administered on 06/28/17 08:00; Start 06/27/17 at 09:00; Stop 06/28/17 at 08:48; Status DC Potassium Chloride (KCl Powder) 30 meq ONCE ONCE NG Last administered on 14:00; Start 06/26/17 at 14:00; Stop 06/26/17 at 14:01; Status DC Pantoprazole Sodium (Protonix Inj) 40 mg Q12H IV PUSH Last administered on 10:37; Start 06/26/17 at 23:00; Stop 06/27/17 at 13:02; Status DC Vancomycin HCl 1000 mg/Sodium Chloride 250 ml @ 250 mls/hr Q18H IV ; Start 06/28 at 00:00; Stop 06/28/17 at 00:00; Status DC Miscellaneous Information SPECIFIC LAB TO BE ... ONCE ONCE .XX ; Start at 11:45; Stop 06/29/17 at 11:46; Status Cancel Levofloxacin/ Dextrose 150 ml @ 100 mls/hr Q24H IV Last administered on 14:04; Start 06/27/17 at 14:00; Stop 07/15/17 at 15:55; Status DC Pantoprazole Sodium 80 mg/ Sodium Chloride 100 ml @ 10 mls/hr Q10H IV Last administered on 06/28/17 22:58; Start 06/27/17 at 16:00; Stop 06/29/17 at 07:21; Status DC Potassium Chloride 100 ml @ 50 mls/hr Q2H PRN IV For Potassium 2.8 - 3.2 mEq/L ; Start 06/28/17 at 03:30; Stop 06/30/17 at 12:31; Status DC Potassium Chloride 100 ml @ 50 mls/hr Q2H PRN IV For Potassium 2.8 - 3.2 mEq/L ; Start 06/28/17 at 03:30; Stop 06/30/17 at 12:31; Status DC Potassium Bicarb/ Potassium Chloride (K-Lyte Cl Eff) 50 meq UNSCH PRN PO For Potassium 3.3 - 3.5 mEq/L; Start 06/28/17 at 03:30; Stop 06/30/17 at 12:31; Status DC Potassium Chloride 100 ml @ 25 mls/hr UNSCH PRN IV For Potassium 3.3 - 3.5 mEq /L; Start 06/28/17 at 03:30; Stop 06/30/17 at 12:31; Status DC Potassium Chloride 100 ml @ 50 mls/hr Q2H PRN IV For Potassium 3.3 - 3.5 mEq/ L Last administered on 06/28/17t 07:10; Start 06/28/17 at 03:30; Stop 06/30/17 at 12:31; Status DC Magnesium Sulfate 4 gm/Sodium Chloride 100 ml @ 50 mls/hr UNSCH PRN IV For Magnesium 0.9 - 1.1 mg/dL; Start 06/28/17 at 03:30; Stop 06/30/17 at 12:31; Status DC Magnesium Oxide (Mag-Ox) 800 mg UNSCH PRN PO For Magnesium 1.2 - 1.6 mg/dL; Start 06/28/17 at 03:30; Stop 06/30/17 at 12:31; Status DC Magnesium Sulfate 2 gm/Sodium Chloride 100 ml @ 50 mls/hr UNSCH PRN IV For Magnesium 1.2 - 1.6 mg/dL; Start 06/28/17 at 03:30; Stop 06/30/17 at 12:31; Status DC Potassium Phosphate (K-Phos) 2,000 mg Q4H PRN PO For Phosphorus < 2.5 mg/dL; Start 06/28/17 at 03:30; Stop 06/30/17 at 12:31; Status DC Sodium Phosphate 30 mmol/Sodium Chloride 250 ml @ 42 mls/hr UNSCH PRN IV For Phosphorus < 2.5 mg/dL; Start 06/28/17 at 03:30; Stop 06/30/17 at 12:31; Status DC Potassium Phosphate (K-Phos) 2,000 mg UNSCH PRN PO/TUBE SEE LABEL COMMENTS; Start 06/28/17 at 03:30; Stop 06/30/17 at 12:31; Status DC Potassium Phosphate 30 mmol/ Sodium Chloride 260 ml @ 42 mls/hr UNSCH PRN IV SEE LABEL COMMENTS; Start 06/28/17 at 03:30; Stop 06/30/17 at 12:31; Status DC Lisinopril (Prinivil) 10 mg DAILY OG-TUBE ; Start 06/28/17 at 10:00; Stop at 13:47; Status DC Potassium Chloride/Sodium Chloride 1,000 ml @ 84 mls/hr [id number] IV Last administered on 06/28/17 13:22; Start 06/28/17 at 13:00; Stop 06/28/17 at 21:10; Status DC Aspirin (Aspirin Supp) 300 mg DAILY RECTAL Last administered on 06/29/17 09:20 ; Start 06/29/17 at 09:00; Stop 07/01/17 at 15:26; Status DC Dexamethasone Sodium Phosphate (Decadron Inj) 6 mg NOW ONCE IV Last administered on 06/28/17 21:55; Start 06/28/17 at 21:15; Stop 06/28/17 at 21:16; Status DC Dexamethasone Sodium Phosphate (Decadron Inj) 6 mg Q6H IV Last administered on 06/30/17 02:49; Start 06/29/17 at 03:00; Stop 06/30/17 at 03:01; Status DC Pantoprazole Sodium (Protonix Inj) 40 mg Q12H IV PUSH Last administered on 07/17 08:36; Start 06/29/17 at 08:00; Stop 07/17/17 at 09:44; Status DC Metoprolol Tartrate (Lopressor) 25 mg Q8HR PO Last administered on 08/10/17 22:07; Start 06/29/17 at 14:00 Hydralazine HCl (Apresoline Inj) 20 mg Q4H PRN IV PUSH SBP >160; Start 06/29/17 at 08:00; Stop 06/30/17 at 20:50; Status DC Haloperidol Lactate (Haldol Inj) 5 mg Q6H PRN IM AGITATION Last administered on 07/01/17 21:23; Start 06/30/17 at 12:30 Dextrose/Sodium Chloride 1,000 ml @ 100 mls/hr Q10H IV Last administered on 09:00; Start 06/30/17 at 13:00; Stop 07/01/17 at 15:26; Status DC Albuterol/ Ipratropium (Duoneb Neb) 1 ampule Q4HR NEB NEB Last administered on 07/04/17 08:31; Start 06/30/17 at 12:30; Stop 07/04/17 at 12:29; Status DC Morphine Sulfate (Morphine Inj) 2 mg Q3H PRN IV PUSH PAIN GREATER THAN 5 Last administered on 07/17/17 09:04; Start 06/30/17 at 12:30; Stop 07/17/17 at 09:44 ; Status DC Enalaprilat (Vasotec Inj) 2.5 mg Q6H PRN IV PUSH SBP > 160 Last administered on 07/14/17 12:10; Start 06/30/17 at 21:00 Lactulose (Lactulose Liq) 30 ml BID PO Last administered on 07/18/17 09:52; Start 07/01/17 at 21:00; Stop 07/18/17 at 11:37; Status DC Potassium Chloride 100 ml @ 50 mls/hr Q2H IV Last administered on 07/02/17 21: 31; Start 07/02/17 at 17:30; Stop 07/02/17 at 21:29; Status DC Magnesium Oxide (Mag-Ox) 400 mg ONCE ONCE PO Last administered on 07/02/17 16: 48; Start 07/02/17 at 16:15; Stop 07/02/17 at 16:16; Status DC Rifaximin (Xifaxan) 550 mg BID PO Last administered on 08/11/17 08:24; Start 07/03/17 at 09:00 Potassium Bicarb/ Potassium Chloride (K-Lyte Cl Eff) 75 meq ONCE ONCE PO ; Start 07/03/17 at 14:15; Stop 07/03/17 at 14:15; Status DC Potassium Chloride 100 ml @ 50 mls/hr Q2H IV Last administered on 07/03/17 23 :12; Start 07/03/17 at 15:00; Stop 07/03/17 at 18:59; Status DC Potassium Bicarbonate (Effer-K Eff) 75 meq ONCE ONCE PO Last administered on 14:52; Start 07/03/17 at 15:00; Stop 07/03/17 at 15:01; Status DC Potassium Bicarbonate (Effer-K Eff) 25 meq ONCE ONCE PO Last administered on 12:00; Start 07/05/17 at 10:15; Stop 07/05/17 at 10:17; Status DC Lisinopril (Prinivil) 10 mg DAILY PO Last administered on 08/11/17 08:24; Start 07/07/17 at 09:00 Lisinopril (Prinivil) 10 mg ONCE ONCE PO Last administered on 07/06/17 14:00 ; Start 07/06/17 at 14:00; Stop 07/06/17 at 14:01; Status DC Furosemide (Lasix Inj) 40 mg ONCE ONCE IV PUSH Last administered on 07/08/17 03:30; Start 07/08/17 at 04:30; Stop 07/08/17 at 04:31; Status DC Cefazolin Sodium (Ancef Inj) 1,000 mg ONCE ONCE IV Last administered on 13:04; Start 07/08/17 at 13:03; Stop 07/08/17 at 13:04; Status DC Propofol (Diprivan 200 Mg/20 ml Inj) 120 mg STK-MED ONCE IV ; Start 07/08/17 at 11:53; Stop 07/08/17 at 13:05; Status DC Albuterol/ Ipratropium (Duoneb Neb) 1 ampule ONCE ONCE NEB ; Start 07/09/17 at 14:30; Stop 07/09/17 at 14:31; Status Cancel Albuterol/ Ipratropium (Duoneb Neb) 1 ampule Q2HR NEB PRN NEB SOB/WHEEZING Last administered on 08/10/17 20:12; Start 07/09/17 at 14:00 Albuterol/ Ipratropium (Duoneb Neb) 1 ampule Q6HR WHILE AWAKE NEB NEB Last administered on 07/13/17 08:44; Start 07/09/17 at 14:00; Stop 07/13/17 at 13:59 ; Status DC Amoxicillin/ Clavulanate Potassium (Augmentin) 875 mg Q12HR PO Last administered on 07/16/17 08:19; Start 07/09/17 at 14:00; Stop 07/16/17 at 13:59 ; Status DC Lactobacillus Acidophilus (Lactinex Pkt) 1 gm BID PO Last administered on 08/11 08:24; Start 07/09/17 at 21:00 Methylprednisolone Sodium Succinate (SoluMEDROL INJ) 40 mg ONCE ONCE IV PUSH Last administered on 07/09/17 17:06; Start 07/09/17 at 14:00; Stop 07/09/17 at 14:24; Status DC Potassium Chloride (KCl Powder) 60 meq ONCE ONCE PO Last administered on 13:49; Start 07/10/17 at 10:30; Stop 07/10/17 at 10:31; Status DC Potassium Phosphate (K-Phos) 500 mg ONCE ONCE PO Last administered on 12:29; Start 07/10/17 at 10:30; Stop 07/10/17 at 10:31; Status DC Magnesium Oxide (Mag-Ox) 400 mg ONCE ONCE PO Last administered on 07/10/17 12 :29; Start 07/10/17 at 10:30; Stop 07/10/17 at 10:31; Status DC Potassium Phosphate (K-Phos) 500 mg ONCE ONCE PO Last administered on 12:44; Start 07/11/17 at 11:15; Stop 07/11/17 at 11:32; Status DC Potassium Bicarb/ Potassium Chloride (K-Lyte Cl Eff) 25 meq ONCE ONCE PO Last administered on 07/13/17 14:47; Start 07/13/17 at 12:00; Stop 07/13/17 at 12:01; Status DC Hydralazine HCl (Apresoline) 10 mg Q6HR PRN PO SBP>160, DBP>90; Start 07/14/17 at 15:45 Pantoprazole Sodium (Protonix) 40 mg Q12HR PO Last administered on 08/11/17 08:24; Start 07/17/17 at 21:00 Oxycodone/ Acetaminophen (Percocet 7.5-325 Mg) 1 tab Q4H PRN PO pain>5 Last administered on 08/11/17 06:41; Start 07/17/17 at 09:45 Lactulose (Lactulose Liq) 30 ml DAILY PO Last administered on 08/11/17 08:23 ; Start 07/19/17 at 09:00 Temazepam (Restoril) 15 mg HS PRN PO INSOMNIA Last administered on 08/08/17 23:42; Start 07/18/17 at 14:00 Pneumococcal Polyvalent Vaccine (Pneumovax-23 Inj) 25 mcg ONCE ONCE IM ; Start 07/20/17 at 10:00; Stop 07/20/17 at 10:01; Status Cancel Influenza Virus Vaccine (Flu (Quadrivalent) Vaccine Inj) 0.5 ml ONCE ONCE IM ; Start 07/20/17 at 10:00; Stop 07/20/17 at 10:01; Status Cancel Influenza Virus Vaccine (Flu (Quadrivalent) Vaccine Inj) 0.5 ml ONCE ONCE IM Last administered on 07/19/17 11:00; Start 07/19/17 at 09:00; Stop 07/19/17 at 09:01; Status DC Pneumococcal Polyvalent Vaccine (Pneumovax-23 Inj) 25 mcg ONCE ONCE IM ; Start 07/18/17 at 19:15; Stop 07/18/17 at 19:15; Status DC Pneumococcal Polyvalent Vaccine (Pneumovax-23 Inj) 25 mcg ONCE ONCE IM Last administered on 07/19/17 09:23; Start 07/19/17 at 09:00; Stop 07/19/17 at 09:01 ; Status DC IV Flush (NS Flush) 5 ml UNSCH PRN IV FLUSH FLUSH AFTER USING IV ACCESS; Start 07/25/17 at 11:15 Zolpidem Tartrate (Ambien) 5 mg HS PRN PO INSOMNIA Last administered on 22:53; Start 08/02/17 at 11:15; Stop 08/08/17 at 10:43; Status DC Guaifenesin/ Dextromethorphan (Robitussin Dm 200-20 Mg/10 ml Liq) 10 ml Q6H PRN PO cough ; Start 08/06/17 at 14:15 Diatrizoate Meglum/ Diatrizoate Sod ( Gastroview Liq) 18 ml ONCE ONCE PO Last administered on 08/07/17 16:19; Start 08/07/17 at 16:30; Stop 08/07/17 at 16:31; Status DC Zolpidem Tartrate (Ambien) 10 mg HS PRN PO INSOMNIA Last administered on 22:32; Start 08/08/17 at 11:00 Iohexol (Omnipaque 350 Inj) 72 ml STK-MED ONCE IVCONTRAST Last administered on 08/08/17 11:23; Start 08/08/17 at 11:23; Stop 08/08/17 at 11:30; Status DC A/P Problem List: (1) Thrombocytopenia ICD Code: D69.6 - Thrombocytopenia, unspecified (2) Polycythemia ICD Code: D75.1 - Secondary polycythemia (3) CVA (cerebral vascular accident) ICD Code: I63.9 - Cerebral infarction, unspecified (4) Stroke ICD Code: I63.9 - Cerebral infarction, unspecified Status: Acute (5) Incontinence ICD Code: R32 - Unspecified urinary incontinence (6) Cystitis ICD Code: N30.90 - Cystitis, unspecified without hematuria Assessment and Plan A/P CVA , with expressive aphasia and right hemiparesis, dysphagia. Continue with aspirin LDL 36 therefore statin is not indicated PT/OT/speech therapy Appreciate input from neurology Continue current treatment Possible aspiration pneumonia-treated. s/p Augmentin 07/16/17 Hyperammonemia-resolved Continue lactulose daily Monitor ammonia level as needed. Acute hypoxemic respiratory failure Resolved Continue with DuoNeb when necessary and maintain oxygen saturation above 92% Hypertension Cardiomyopathy 2-D echo revealed LVEF of 45%. Continue beta marilou. PRN antihypertensives Appreciate input from cardiology who signed off Dysphagia-improving. PEG has been removed. diet per ST. drainage from the site of PEG/ low grade fever- no recurrent fever and abdominal pain has resolved. CT of the abdomen as noted above. will start on Bactrim and send the fluid for the culture d/w GI today. f/u with GI as outpatient. History of chronic of chronic benzodiazepine use Advised on cessation Upper GI bleed Elevated transaminases Elevated ammonia Hypoalbuminemia Hepatitis C antibody positive Rectal bleeding Currently on Protonix Appreciate input from GI who signed off s/p EGD with gastritis and esophagitis. HIDA scan 06/28 with distended gallbladder-no evidence of acute cholecystitis s/p PEG placement / removal History of incontinence Resolved Acute kidney injury Resolved Thrombocytopenia resolved. insomnia; ambien as needed. Prophylaxis - GI - PO Protonix - DVT - SCD/heparin subcutaneous on hold due to GI bleed. Discharge Planning awaiting placement- pending SSI. Problem Qualifiers (1) CVA (cerebral vascular accident): Qualified Codes: I63.9 - Cerebral infarction, unspecified (2) Stroke: Qualified Codes: I63.9 - Cerebral infarction, unspecified (3) Incontinence: Qualified Codes: R32 - Unspecified urinary incontinence Madhu Villaseñor MD Aug 11, 2017 08:56
[2017-08-11] MEDS: SULFAMETHOXAZOLE-TRIMETHOPRIM DS 800-160 MG TAB PO SCH ×4 (12:28→21:59)
[2017-08-11] MEDS: ZOLPIDEM TARTRATE 5 MG TAB PO PRN ×2 (22:44)
[2017-08-12 00:02] VITALS: BP 108/63; PULSE 73; RESP 18; TEMP 98; O2SAT 95
[2017-08-12] MEDS: oxyCODONE/ACETAMINOPHEN 7.5 MG/325 MG TAB PO PRN ×12 (02:42→23:30)
[2017-08-12] MEDS: CHLORHEXIDINE GLUCONATE 2 % 1 PACK (2 CLOTHS) TOP SCH ×2 (04:00)
[2017-08-12 05:11] VITALS: BP 102/59; PULSE 94; RESP 18; TEMP 97.9; O2SAT 94
[2017-08-12] MEDS: METOPROLOL TARTRATE 25 MG TAB PO SCH ×6 (06:22→21:49)
[2017-08-12 08:10] VITALS: BP 122/58; PULSE 76; RESP 20; O2SAT 99
[2017-08-12] MEDS: LACTULOSE SYRUP 20 GM/30 ML CUP PO SCH ×2 (08:28)
[2017-08-12] MEDS: RIFAXIMIN 550 MG TAB PO SCH ×4 (08:28→21:48)
[2017-08-12] MEDS: SULFAMETHOXAZOLE-TRIMETHOPRIM DS 800-160 MG TAB PO SCH ×4 (08:28→21:49)
[2017-08-12] MEDS: LISINOPRIL 10 MG TAB PO SCH ×2 (08:28)
[2017-08-12] MEDS: ASPIRIN 81 MG CHEW TAB PO SCH ×2 (08:28)
[2017-08-12] MEDS: ARTIFICIAL TEARS OPTH SOLN 15 ML BTL EACH EYE SCH ×6 (08:29→17:41)
[2017-08-12] MEDS: LACTOBACILLUS ACIDOPHILUS 1 GM PACKET PO SCH ×4 (08:29→21:49)
[2017-08-12] MEDS: PANTOPRAZOLE SOD 40 MG DELAYED RELEASE TAB PO SCH ×4 (08:29→21:49)
[2017-08-12] MEDS: SODIUM CHLORIDE 0.9% FLUSH 10 ML FLUSH IV FLUSH SCH ×4 (08:29→21:50)
--- NOTE | 2017-08-12 08:59 | HHI.PR ---
Subjective Remarks in no acute distress. has occasional cough. no fever. denies abdominal pain. Objective Vitals Vital Signs Date Time Temp Pulse Resp B/P (MAP) Pulse Ox O2 Delivery O2 Flow Rate FiO2 08/12/17 08:38 Room Air 08/12/17 08:10 76 20 122/58 (79) 99 08/12/17 05:11 97.9 94 18 102/59 (73) 94 08/12/17 00:02 98.0 73 18 108/63 (78) 95 08/11/17 21:55 Room Air 08/11/17 20:30 97.3 81 18 98/68 (78) 99 08/11/17 16:00 98.1 74 16 113/62 (79) 97 08/11/17 12:00 98.4 78 16 109/58 (75) 98 08/11/17 10:10 97.6 72 20 96/56 (69) 98 I/O 08/11/17 08/11/17 08/11/17 08/12/17 08/12/17 08/12/17 07:00 15:00 23:00 07:00 15:00 23:00 # Voids 1 3 # Bowel Movements 0 Imaging Last Impressions Abdomen/Pelvis CT 08/08/17 0000 Signed Impressions: Service Date/Time: Tuesday, August 08, 2017 11:16 - CONCLUSION: PEG tube site remains patent from stomach to the anterior abdominal wall with induration in the rectus. Patchy airspace disease in both lungs. Rudy Meng MD FACR Abdomen X-Ray 08/06/17 0000 Signed Impressions: Service Date/Time: Sunday, August 06, 2017 00:36 - CONCLUSION: PEG tube overlying the left lower abdomen. Christopher Sarmiento MD Modified Barium Swallow 07/19/17 0000 Signed Impressions: Service Date/Time: Wednesday, July 19, 2017 00:00 - CONCLUSION: Penetration and aspiration as above within liquids, penetration with nectar thick consistency. Jude Braxton MD Chest X-Ray 07/09/17 0000 Signed Impressions: Service Date/Time: Sunday, July 09, 2017 14:04 - CONCLUSION: 1. Stable mild central bibasilar patchy airspace disease. 2. No significant interval change. Gustavo Santoro MD Head CT 07/06/17 0000 Signed Impressions: Service Date/Time: Thursday, July 06, 2017 09:07 - CONCLUSION: 1. 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 2. Mucous retention cyst within left maxillary and right sphenoid sinuses. Juan Pablo Huffman MD Hepatobiliary Scan Nuclear Medicine 06/28/17 0900 Signed Impressions: Service Date/Time: Wednesday, June 28, 2017 10:17 - CONCLUSION: Nonspecific persistent distention of the gallbladder. No evidence of acute cholecystitis or biliary obstruction. Christopher Gutierrez MD Lung Scan-VQ Nuclear Medicine 06/24/17 0000 Signed Impressions: Service Date/Time: Saturday, June 24, 2017 12:21 - CONCLUSION: 1. Low probability of pulmonary embolism Jose Richard MD Head Magnetic Resonance Angiography 06/24/17 0000 Signed Impressions: Service Date/Time: Saturday, June 24, 2017 13:37 - CONCLUSION: Negative for major branch vessels obstruction in spite of MRI findings. Rudy Meng MD FACR Brain MRI 06/24/17 0000 Signed Impressions: Service Date/Time: Saturday, June 24, 2017 13:37 - CONCLUSION: Findings consistent with acute infarct left sylvian region anteriorly without hemorrhage. Rudy Meng MD FACR Carotid Artery Ultrasound 06/22/17 0000 Signed Impressions: Service Date/Time: Thursday, June 22, 2017 15:56 - CONCLUSION: No evidence of flow-limiting carotid stenosis. Christopher Leonardo MD Abdomen Ultrasound 06/22/17 0000 Signed Impressions: Service Date/Time: Thursday, June 22, 2017 16:30 - CONCLUSION: Distended gallbladder with wall thickening and internal debris. Mild calyceal dilatation involving the kidneys bilaterally Christopher Leonardo MD Objective Remarks GENERAL: This is a well-nourished, well-developed patient, in no apparent distress. CARDIOVASCULAR: Regular rate and regular rhythm without murmurs, gallops, or rubs. RESPIRATORY: Clear to auscultation. Breath sounds equal bilaterally. No wheezes , rales, or rhonchi. GASTROINTESTINAL: Abdomen soft, non-tender, nondistended. Normal, active bowel sounds- minimal drainage from the site of PEG. MUSCULOSKELETAL: Extremities without clubbing, cyanosis, or edema. NEURO: Alert & Oriented x4 to person, place, time, situation. Moves all ext x4 Procedures PEG tube insertion. Medications and IVs Current Medications Propofol 100 ml @ As Directed STK-MED ONCE .ROUTE Last administered on 12:43; Start 06/22/17 at 12:25; Stop 06/22/17 at 12:26; Status DC IV Flush (NS Flush) 2 ml UNSCH PRN IV FLUSH FLUSH AFTER USING IV ACCESS; Start 06/22/17 at 12:30; Stop 06/22/17 at 15:32; Status DC Sodium Chloride 1,000 ml @ 1,000 mls/hr Q1H IV Last administered on 06/22/17 12:43; Start 06/22/17 at 12:25; Stop 06/22/17 at 13:24; Status DC Etomidate (Amidate Inj) 20 mg ONCE ONCE IVP Last administered on 06/22/17 12: 44; Start 06/22/17 at 12:30; Stop 06/22/17 at 12:34; Status DC Albuterol/ Ipratropium (Duoneb Neb) 1 ampule Q15M INH Last administered on 06/22 13:16; Start 06/22/17 at 12:30; Stop 06/22/17 at 13:01; Status DC Sodium Chloride (NS Flush) 2 ml UNSCH PRN IVF FLUSH AFTER USING IV ACCESS Last administered on 06/22/17 12:44; Start 06/22/17 at 12:30; Stop 06/22/17 at 15:32 ; Status DC Sodium Chloride 1,000 ml @ 999 mls/hr Q1H1M IV Last administered on 06/22/17 12:56; Start 06/22/17 at 12:45; Stop 06/22/17 at 13:45; Status DC Sodium Chloride 1,000 ml @ 999 mls/hr Q1H1M IV Last administered on 06/22/17 12:56; Start 06/22/17 at 12:45; Stop 06/22/17 at 13:45; Status DC Methylprednisolone Sodium Succinate (SoluMEDROL INJ) 125 mg ONCE ONCE IV PUSH Last administered on 06/22/17 12:56; Start 06/22/17 at 12:45; Stop 06/22/17 at 12:46; Status DC Hydromorphone HCl (Dilaudid Pf Inj) 0.5 mg ONCE ONCE IV PUSH Last administered on 06/22/17 12:56; Start 06/22/17 at 12:45; Stop 06/22/17 at 12:46 ; Status DC Succinylcholine Chloride (Quelicin Inj) 200 mg STK-MED ONCE .ROUTE Last administered on 06/22/17 12:20; Start 06/22/17 at 13:15; Stop 06/22/17 at 13:16 ; Status DC Vancomycin HCl 850 mg/Sodium Chloride 258.5 ml @ 250 mls/hr ONCE ONCE IV Last administered on 06/22/17 16:06; Start 06/22/17 at 15:15; Stop 06/22/17 at 16:17; Status DC Cefepime HCl 1000 mg/Sodium Chloride 100 ml @ 200 mls/hr ONCE ONCE IV Last administered on 06/22/17 15:08; Start 06/22/17 at 15:15; Stop 06/22/17 at 15:46 ; Status DC Sodium Chloride 1,000 ml @ 84 mls/hr [id number] IV Last administered on 03:06; Start 06/22/17 at 15:09; Stop 06/23/17 at 07:25; Status DC Sodium Chloride (NS Flush) 2 ml UNSCH PRN IV FLUSH FLUSH AFTER USING IV ACCESS Last administered on 07/11/17 06:10; Start 06/22/17 at 15:15 Sodium Chloride (NS Flush) 2 ml BID IV FLUSH Last administered on 08/12/17 08 :29; Start 06/22/17 at 21:00 Acetaminophen (Tylenol) 650 mg Q6H PRN PO PAIN 1-10 AND/OR FEVER >101F; Start 06/22/17 at 15:15; Stop 06/23/17 at 07:23; Status DC Famotidine (Pepcid Inj) 10 mg Q12HR IV PUSH Last administered on 06/26/17 20:36 ; Start 06/22/17 at 21:00; Stop 06/26/17 at 22:58; Status DC Lorazepam (Ativan Inj) 1 mg Q1H PRN IV Agitation/Sedation Last administered on 06/30/17 07:50; Start 06/22/17 at 15:15; Stop 06/30/17 at 12:29; Status DC Artificial Tears (Tears Naturale Opth Soln) 1 drop TID EACH EYE Last administered on 08/12/17 08:29; Start 06/22/17 at 18:00 Ondansetron HCl (Zofran Inj) 4 mg Q6H PRN IV NAUSEA OR VOMITING; Start at 15:15 Albuterol/ Ipratropium (Duoneb Neb) 1 ampule Q6HR NEB INH Last administered on 06/26/17 15:29; Start 06/22/17 at 16:00; Stop 06/26/17 at 15:59; Status DC Albuterol Sulfate (Albuterol Neb) 2.5 mg Q2HR NEB PRN INH SOB/WHEEZING Last administered on 07/09/17 11:13; Start 06/22/17 at 15:15; Stop 07/09/17 at 14:25 ; Status DC Heparin Sodium (Porcine) (Heparin Inj) 5,000 units Q12H SQ Last administered on 06/29/17 14:38; Start 06/22/17 at 15:15; Status Future Hold Miscellaneous Information 1 [id number] Last administered on 06/22/17 15:15; Start 06/22/17 at 15:15 Chlorhexidine Gluconate (Chlorhexidine 2% Cloth) Taper DAILY@04 TOP Last administered on 07/19/17 04:00; Start 06/23/17 at 04:00; Stop 06/19/18 at 03:59 Chlorhexidine Gluconate (Chlorhexidine 2% Cloth) 3 pack UNSCH PRN TOP HYGIENIC CARE; Start 06/22/17 at 15:15 Senna/Docusate Sodium (Indy-Colace) 1 tab BID PO Last administered on 06/29/17 22:42; Start 06/22/17 at 21:00; Stop 06/30/17 at 11:09; Status DC Magnesium Hydroxide (Milk Of Magnesia Liq) 30 ml Q12H PRN PO MILD - MODERATE CONSTIPATION; Start 06/22/17 at 15:15 Sennosides (Senokot) 17.2 mg Q12H PRN PO MODERATE - SEVERE CONSTIPATION Last administered on 08/08/17 23:41; Start 06/22/17 at 15:15 Bisacodyl (Dulcolax Supp) 10 mg DAILY PRN RECTAL SEVERE CONSITIPATION Last administered on 07/24/17 08:28; Start 06/22/17 at 15:15 Lactulose (Lactulose Liq) 30 ml DAILY PRN PO SEVERE CONSITIPATION; Start at 15:15 Chlorhexidine Gluconate (Peridex 0.12% Liq) 15 ml BID@08,20 MT Last administered on 08/03/17 08:00; Start 06/22/17 at 20:00; Stop 08/10/17 at 11: 29; Status DC Propofol 100 ml @ 1.65 mls/hr TITRATE PRN IV SEDATION; Start 06/22/17 at 15:15 ; Stop 06/23/17 at 17:57; Status DC Fentanyl Citrate 250 ml @ 5 mls/hr TITRATE PRN IV SEDATION; Start 06/22/17 at 15:15; Stop 06/27/17 at 13:02; Status DC IV Flush (NS Flush) 2 ml BID IV FLUSH ; Start 06/22/17 at 21:00; Status UNV IV Flush (NS Flush) 2 ml UNSCH PRN IV FLUSH FLUSH AFTER USING IV ACCESS; Start 06/22/17 at 15:45; Status UNV Labetalol HCl (Trandate Inj) 10 mg Q2H PRN IV For SBP > 220 or DBP > 120; Start 06/22/17 at 15:45 Nicardipine HCl 25 mg/Sodium Chloride 260 ml @ 52 mls/hr TITRATE PRN IV Maintain BP goal; Start 06/22/17 at 16:00; Stop 08/10/17 at 11:29; Status DC Aspirin (Aspirin Chew) 81 mg DAILY PO Last administered on 08/12/17 08:28; Start 06/23/17 at 09:00; Status Future hold Insulin Aspart (NovoLOG SUPPLEMENTAL SCALE) 1 ACHS SQ Last administered on 06/22 16:54; Start 06/22/17 at 16:00; Stop 06/23/17 at 07:23; Status DC Dextrose (D50w (Vial) Inj) 50 ml UNSCH PRN IV PUSH HYPOGLYCEMIA-SEE COMMENTS; Start 06/22/17 at 15:45 Glucagon (Glucagon Inj) 1 mg UNSCH PRN OTHER HYPOGLYCEMIA-SEE COMMENTS; Start 06/22/17 at 15:45 Piperacillin Sod/ Tazobactam Sod 50 ml @ 100 mls/hr Q6H IV Last administered on 06/29/17 05:17; Start 06/22/17 at 17:00; Stop 06/29/17 at 08:00; Status DC Lactulose (Lactulose Liq) 30 ml QID PO Last administered on 06/29/17 22:42; Start 06/22/17 at 18:00; Stop 07/01/17 at 15:26; Status DC Propofol 100 ml @ 1.65 mls/hr TITRATE PRN IV Ordered RASS Last administered on 06/28/17 05:59; Start 06/22/17 at 17:15; Stop 06/29/17 at 07:21; Status DC Calcium Gluconate 2 gm/Sodium Chloride 120 ml @ 120 mls/hr ONCE ONCE IV Last administered on 06/23/17 05:32; Start 06/23/17 at 06:00; Stop 06/23/17 at 06:59 ; Status DC Insulin Aspart (NovoLOG SUPPLEMENTAL SCALE) 1 Q6HR SQ Last administered on 06:16; Start 06/23/17 at 12:00; Stop 07/05/17 at 16:27; Status DC Sodium Chloride 1,000 ml @ 999 mls/hr BOLUS ONCE IV Last administered on 06/23 08:49; Start 06/23/17 at 08:00; Stop 06/23/17 at 09:00; Status DC Sodium Bicarbonate 100 meq/Sterile Water 950 ml @ 110 mls/hr Q8H39M IV Last administered on 06/24/17 02:48; Start 06/23/17 at 07:30; Stop 06/24/17 at 09:10; Status DC Potassium Chloride (KCl Powder) 40 meq ONCE ONCE PO Last administered on 06:45; Start 06/24/17 at 06:45; Stop 06/24/17 at 06:46; Status DC Sodium Phosphate 15 mmol/Sodium Chloride 155 ml @ 38.75 mls/ hr ONCE ONCE IV Last administered on 06/24/17 08:27; Start 06/24/17 at 08:00; Stop 06/24/17 at 11: 59; Status DC Water (Free Water) VOLUME: 200 ML Q4HR G-TUBE Last administered on 07/02/17 16: 00; Start 06/24/17 at 12:00; Stop 07/05/17 at 10:15; Status DC Sodium Chloride 1,000 ml @ 999 mls/hr BOLUS ONCE IV Last administered on 10:41; Start 06/24/17 at 09:15; Stop 06/24/17 at 10:15; Status DC Metoprolol Tartrate (Lopressor) 12.5 mg Q12HR PO Last administered on 06/27/17 20:02; Start 06/24/17 at 21:00; Stop 06/29/17 at 07:55; Status DC Miscellaneous (Pill Splitter) 1 ea UNSCH PRN OTHER SEE LABEL COMMENTS; Start at 15:00 Pharmacy Profile Note 0 ml @ 0 mls/hr UNSCH OTHER ; Start 06/24/17 at 22:30; Stop 06/27/17 at 13:12; Status DC Vancomycin HCl 1000 mg/Sodium Chloride 250 ml @ 250 mls/hr ONCE ONCE IV Last administered on 06/24/17 22:46; Start 06/24/17 at 22:30; Stop 06/24/17 at 23:29; Status DC Potassium Phosphate 30 mmol/ Sodium Chloride 260 ml @ 43.333 mls/ hr ONCE ONCE IV Last administered on 06/25/17 11:00; Start 06/25/17 at 11:00; Stop at 16:59; Status DC Vancomycin HCl 1000 mg/Sodium Chloride 250 ml @ 250 mls/hr Q24H IV Last administered on 06/27/17 06:11; Start 06/26/17 at 02:00; Stop 06/27/17 at 09:08; Status DC Miscellaneous Information SPECIFIC LAB TO BE DRAWN: VANCO TROUGH DATE... ONCE ONCE .XX ; Start 06/27/17 at 01:45; Stop 06/27/17 at 01:46; Status DC Lisinopril (Prinivil) 5 mg DAILY OG-TUBE Last administered on 06/28/17 08:00; Start 06/27/17 at 09:00; Stop 06/28/17 at 08:48; Status DC Potassium Chloride (KCl Powder) 30 meq ONCE ONCE NG Last administered on 14:00; Start 06/26/17 at 14:00; Stop 06/26/17 at 14:01; Status DC Pantoprazole Sodium (Protonix Inj) 40 mg Q12H IV PUSH Last administered on 10:37; Start 06/26/17 at 23:00; Stop 06/27/17 at 13:02; Status DC Vancomycin HCl 1000 mg/Sodium Chloride 250 ml @ 250 mls/hr Q18H IV ; Start 06/28 at 00:00; Stop 06/28/17 at 00:00; Status DC Miscellaneous Information SPECIFIC LAB TO BE ... ONCE ONCE .XX ; Start at 11:45; Stop 06/29/17 at 11:46; Status Cancel Levofloxacin/ Dextrose 150 ml @ 100 mls/hr Q24H IV Last administered on 14:04; Start 06/27/17 at 14:00; Stop 07/15/17 at 15:55; Status DC Pantoprazole Sodium 80 mg/ Sodium Chloride 100 ml @ 10 mls/hr Q10H IV Last administered on 06/28/17 22:58; Start 06/27/17 at 16:00; Stop 06/29/17 at 07:21; Status DC Potassium Chloride 100 ml @ 50 mls/hr Q2H PRN IV For Potassium 2.8 - 3.2 mEq/L ; Start 06/28/17 at 03:30; Stop 06/30/17 at 12:31; Status DC Potassium Chloride 100 ml @ 50 mls/hr Q2H PRN IV For Potassium 2.8 - 3.2 mEq/L ; Start 06/28/17 at 03:30; Stop 06/30/17 at 12:31; Status DC Potassium Bicarb/ Potassium Chloride (K-Lyte Cl Eff) 50 meq UNSCH PRN PO For Potassium 3.3 - 3.5 mEq/L; Start 06/28/17 at 03:30; Stop 06/30/17 at 12:31; Status DC Potassium Chloride 100 ml @ 25 mls/hr UNSCH PRN IV For Potassium 3.3 - 3.5 mEq /L; Start 06/28/17 at 03:30; Stop 06/30/17 at 12:31; Status DC Potassium Chloride 100 ml @ 50 mls/hr Q2H PRN IV For Potassium 3.3 - 3.5 mEq/ L Last administered on 06/28/17t 07:10; Start 06/28/17 at 03:30; Stop 06/30/17 at 12:31; Status DC Magnesium Sulfate 4 gm/Sodium Chloride 100 ml @ 50 mls/hr UNSCH PRN IV For Magnesium 0.9 - 1.1 mg/dL; Start 06/28/17 at 03:30; Stop 06/30/17 at 12:31; Status DC Magnesium Oxide (Mag-Ox) 800 mg UNSCH PRN PO For Magnesium 1.2 - 1.6 mg/dL; Start 06/28/17 at 03:30; Stop 06/30/17 at 12:31; Status DC Magnesium Sulfate 2 gm/Sodium Chloride 100 ml @ 50 mls/hr UNSCH PRN IV For Magnesium 1.2 - 1.6 mg/dL; Start 06/28/17 at 03:30; Stop 06/30/17 at 12:31; Status DC Potassium Phosphate (K-Phos) 2,000 mg Q4H PRN PO For Phosphorus < 2.5 mg/dL; Start 06/28/17 at 03:30; Stop 06/30/17 at 12:31; Status DC Sodium Phosphate 30 mmol/Sodium Chloride 250 ml @ 42 mls/hr UNSCH PRN IV For Phosphorus < 2.5 mg/dL; Start 06/28/17 at 03:30; Stop 06/30/17 at 12:31; Status DC Potassium Phosphate (K-Phos) 2,000 mg UNSCH PRN PO/TUBE SEE LABEL COMMENTS; Start 06/28/17 at 03:30; Stop 06/30/17 at 12:31; Status DC Potassium Phosphate 30 mmol/ Sodium Chloride 260 ml @ 42 mls/hr UNSCH PRN IV SEE LABEL COMMENTS; Start 06/28/17 at 03:30; Stop 06/30/17 at 12:31; Status DC Lisinopril (Prinivil) 10 mg DAILY OG-TUBE ; Start 06/28/17 at 10:00; Stop at 13:47; Status DC Potassium Chloride/Sodium Chloride 1,000 ml @ 84 mls/hr [id number] IV Last administered on 06/28/17 13:22; Start 06/28/17 at 13:00; Stop 06/28/17 at 21:10; Status DC Aspirin (Aspirin Supp) 300 mg DAILY RECTAL Last administered on 06/29/17 09:20 ; Start 06/29/17 at 09:00; Stop 07/01/17 at 15:26; Status DC Dexamethasone Sodium Phosphate (Decadron Inj) 6 mg NOW ONCE IV Last administered on 06/28/17 21:55; Start 06/28/17 at 21:15; Stop 06/28/17 at 21:16; Status DC Dexamethasone Sodium Phosphate (Decadron Inj) 6 mg Q6H IV Last administered on 06/30/17 02:49; Start 06/29/17 at 03:00; Stop 06/30/17 at 03:01; Status DC Pantoprazole Sodium (Protonix Inj) 40 mg Q12H IV PUSH Last administered on 07/17 08:36; Start 06/29/17 at 08:00; Stop 07/17/17 at 09:44; Status DC Metoprolol Tartrate (Lopressor) 25 mg Q8HR PO Last administered on 08/12/17 06:22; Start 06/29/17 at 14:00 Hydralazine HCl (Apresoline Inj) 20 mg Q4H PRN IV PUSH SBP >160; Start 06/29/17 at 08:00; Stop 06/30/17 at 20:50; Status DC Haloperidol Lactate (Haldol Inj) 5 mg Q6H PRN IM AGITATION Last administered on 07/01/17 21:23; Start 06/30/17 at 12:30 Dextrose/Sodium Chloride 1,000 ml @ 100 mls/hr Q10H IV Last administered on 09:00; Start 06/30/17 at 13:00; Stop 07/01/17 at 15:26; Status DC Albuterol/ Ipratropium (Duoneb Neb) 1 ampule Q4HR NEB NEB Last administered on 07/04/17 08:31; Start 06/30/17 at 12:30; Stop 07/04/17 at 12:29; Status DC Morphine Sulfate (Morphine Inj) 2 mg Q3H PRN IV PUSH PAIN GREATER THAN 5 Last administered on 07/17/17 09:04; Start 06/30/17 at 12:30; Stop 07/17/17 at 09:44 ; Status DC Enalaprilat (Vasotec Inj) 2.5 mg Q6H PRN IV PUSH SBP > 160 Last administered on 07/14/17 12:10; Start 06/30/17 at 21:00 Lactulose (Lactulose Liq) 30 ml BID PO Last administered on 07/18/17 09:52; Start 07/01/17 at 21:00; Stop 07/18/17 at 11:37; Status DC Potassium Chloride 100 ml @ 50 mls/hr Q2H IV Last administered on 07/02/17 21: 31; Start 07/02/17 at 17:30; Stop 07/02/17 at 21:29; Status DC Magnesium Oxide (Mag-Ox) 400 mg ONCE ONCE PO Last administered on 07/02/17 16: 48; Start 07/02/17 at 16:15; Stop 07/02/17 at 16:16; Status DC Rifaximin (Xifaxan) 550 mg BID PO Last administered on 08/12/17 08:28; Start 07/03/17 at 09:00 Potassium Bicarb/ Potassium Chloride (K-Lyte Cl Eff) 75 meq ONCE ONCE PO ; Start 07/03/17 at 14:15; Stop 07/03/17 at 14:15; Status DC Potassium Chloride 100 ml @ 50 mls/hr Q2H IV Last administered on 07/03/17 23 :12; Start 07/03/17 at 15:00; Stop 07/03/17 at 18:59; Status DC Potassium Bicarbonate (Effer-K Eff) 75 meq ONCE ONCE PO Last administered on 14:52; Start 07/03/17 at 15:00; Stop 07/03/17 at 15:01; Status DC Potassium Bicarbonate (Effer-K Eff) 25 meq ONCE ONCE PO Last administered on 12:00; Start 07/05/17 at 10:15; Stop 07/05/17 at 10:17; Status DC Lisinopril (Prinivil) 10 mg DAILY PO Last administered on 08/12/17 08:28; Start 07/07/17 at 09:00 Lisinopril (Prinivil) 10 mg ONCE ONCE PO Last administered on 07/06/17 14:00 ; Start 07/06/17 at 14:00; Stop 07/06/17 at 14:01; Status DC Furosemide (Lasix Inj) 40 mg ONCE ONCE IV PUSH Last administered on 07/08/17 03:30; Start 07/08/17 at 04:30; Stop 07/08/17 at 04:31; Status DC Cefazolin Sodium (Ancef Inj) 1,000 mg ONCE ONCE IV Last administered on 13:04; Start 07/08/17 at 13:03; Stop 07/08/17 at 13:04; Status DC Propofol (Diprivan 200 Mg/20 ml Inj) 120 mg STK-MED ONCE IV ; Start 07/08/17 at 11:53; Stop 07/08/17 at 13:05; Status DC Albuterol/ Ipratropium (Duoneb Neb) 1 ampule ONCE ONCE NEB ; Start 07/09/17 at 14:30; Stop 07/09/17 at 14:31; Status Cancel Albuterol/ Ipratropium (Duoneb Neb) 1 ampule Q2HR NEB PRN NEB SOB/WHEEZING Last administered on 08/10/17 20:12; Start 07/09/17 at 14:00 Albuterol/ Ipratropium (Duoneb Neb) 1 ampule Q6HR WHILE AWAKE NEB NEB Last administered on 07/13/17 08:44; Start 07/09/17 at 14:00; Stop 07/13/17 at 13:59 ; Status DC Amoxicillin/ Clavulanate Potassium (Augmentin) 875 mg Q12HR PO Last administered on 07/16/17 08:19; Start 07/09/17 at 14:00; Stop 07/16/17 at 13:59 ; Status DC Lactobacillus Acidophilus (Lactinex Pkt) 1 gm BID PO Last administered on 08/12 08:29; Start 07/09/17 at 21:00 Methylprednisolone Sodium Succinate (SoluMEDROL INJ) 40 mg ONCE ONCE IV PUSH Last administered on 07/09/17 17:06; Start 07/09/17 at 14:00; Stop 07/09/17 at 14:24; Status DC Potassium Chloride (KCl Powder) 60 meq ONCE ONCE PO Last administered on 13:49; Start 07/10/17 at 10:30; Stop 07/10/17 at 10:31; Status DC Potassium Phosphate (K-Phos) 500 mg ONCE ONCE PO Last administered on 12:29; Start 07/10/17 at 10:30; Stop 07/10/17 at 10:31; Status DC Magnesium Oxide (Mag-Ox) 400 mg ONCE ONCE PO Last administered on 07/10/17 12 :29; Start 07/10/17 at 10:30; Stop 07/10/17 at 10:31; Status DC Potassium Phosphate (K-Phos) 500 mg ONCE ONCE PO Last administered on 12:44; Start 07/11/17 at 11:15; Stop 07/11/17 at 11:32; Status DC Potassium Bicarb/ Potassium Chloride (K-Lyte Cl Eff) 25 meq ONCE ONCE PO Last administered on 07/13/17 14:47; Start 07/13/17 at 12:00; Stop 07/13/17 at 12:01; Status DC Hydralazine HCl (Apresoline) 10 mg Q6HR PRN PO SBP>160, DBP>90; Start 07/14/17 at 15:45 Pantoprazole Sodium (Protonix) 40 mg Q12HR PO Last administered on 08/12/17 08:29; Start 07/17/17 at 21:00 Oxycodone/ Acetaminophen (Percocet 7.5-325 Mg) 1 tab Q4H PRN PO pain>5 Last administered on 08/12/17 06:46; Start 07/17/17 at 09:45 Lactulose (Lactulose Liq) 30 ml DAILY PO Last administered on 08/12/17 08:28 ; Start 07/19/17 at 09:00 Temazepam (Restoril) 15 mg HS PRN PO INSOMNIA Last administered on 08/08/17 23:42; Start 07/18/17 at 14:00 Pneumococcal Polyvalent Vaccine (Pneumovax-23 Inj) 25 mcg ONCE ONCE IM ; Start 07/20/17 at 10:00; Stop 07/20/17 at 10:01; Status Cancel Influenza Virus Vaccine (Flu (Quadrivalent) Vaccine Inj) 0.5 ml ONCE ONCE IM ; Start 07/20/17 at 10:00; Stop 07/20/17 at 10:01; Status Cancel Influenza Virus Vaccine (Flu (Quadrivalent) Vaccine Inj) 0.5 ml ONCE ONCE IM Last administered on 07/19/17 11:00; Start 07/19/17 at 09:00; Stop 07/19/17 at 09:01; Status DC Pneumococcal Polyvalent Vaccine (Pneumovax-23 Inj) 25 mcg ONCE ONCE IM ; Start 07/18/17 at 19:15; Stop 07/18/17 at 19:15; Status DC Pneumococcal Polyvalent Vaccine (Pneumovax-23 Inj) 25 mcg ONCE ONCE IM Last administered on 07/19/17 09:23; Start 07/19/17 at 09:00; Stop 07/19/17 at 09:01 ; Status DC IV Flush (NS Flush) 5 ml UNSCH PRN IV FLUSH FLUSH AFTER USING IV ACCESS; Start 07/25/17 at 11:15 Zolpidem Tartrate (Ambien) 5 mg HS PRN PO INSOMNIA Last administered on 22:53; Start 08/02/17 at 11:15; Stop 08/08/17 at 10:43; Status DC Guaifenesin/ Dextromethorphan (Robitussin Dm 200-20 Mg/10 ml Liq) 10 ml Q6H PRN PO cough ; Start 08/06/17 at 14:15 Diatrizoate Meglum/ Diatrizoate Sod ( Gastroview Liq) 18 ml ONCE ONCE PO Last administered on 08/07/17 16:19; Start 08/07/17 at 16:30; Stop 08/07/17 at 16:31; Status DC Zolpidem Tartrate (Ambien) 10 mg HS PRN PO INSOMNIA Last administered on 22:44; Start 08/08/17 at 11:00 Iohexol (Omnipaque 350 Inj) 72 ml STK-MED ONCE IVCONTRAST Last administered on 08/08/17 11:23; Start 08/08/17 at 11:23; Stop 08/08/17 at 11:30; Status DC Trimethoprim/ Sulfamethoxazole (Bactrim Ds 800-160 Mg) 1 tab Q12HR PO Last administered on 08/12/17t 08:28; Start 08/11/17 at 10:15 A/P Problem List: (1) Thrombocytopenia ICD Code: D69.6 - Thrombocytopenia, unspecified (2) Polycythemia ICD Code: D75.1 - Secondary polycythemia (3) CVA (cerebral vascular accident) ICD Code: I63.9 - Cerebral infarction, unspecified (4) Stroke ICD Code: I63.9 - Cerebral infarction, unspecified Status: Acute (5) Incontinence ICD Code: R32 - Unspecified urinary incontinence (6) Cystitis ICD Code: N30.90 - Cystitis, unspecified without hematuria Assessment and Plan A/P CVA , with expressive aphasia and right hemiparesis, dysphagia. Continue with aspirin LDL 36 therefore statin is not indicated PT/OT/speech therapy Appreciate input from neurology Continue current treatment Possible aspiration pneumonia-treated. s/p Augmentin 07/16/17 Hyperammonemia-resolved Continue lactulose daily Monitor ammonia level as needed. Acute hypoxemic respiratory failure Resolved Continue with DuoNeb when necessary and maintain oxygen saturation above 92% Hypertension Cardiomyopathy 2-D echo revealed LVEF of 45%. Continue beta marilou. PRN antihypertensives Appreciate input from cardiology who signed off Dysphagia-improving. PEG has been removed. diet per ST. drainage from the site of PEG/ low grade fever- no recurrent fever and abdominal pain has resolved. CT of the abdomen as noted above. continue Bactrim; fluid for the culture; pending. previously d/w GI . f/u with GI as outpatient. History of chronic of chronic benzodiazepine use Advised on cessation Upper GI and rectal bleed Elevated transaminases Hepatitis C antibody positive Currently on Protonix Appreciate input from GI who signed off s/p EGD with gastritis and esophagitis. HIDA scan 06/28 with distended gallbladder-no evidence of acute cholecystitis s/p PEG placement / removal History of incontinence Resolved Acute kidney injury Resolved Thrombocytopenia resolved. insomnia; ambien as needed. cough; antitussives as needed. Prophylaxis - GI - PO Protonix - DVT - SCD/heparin subcutaneous on hold due to GI bleed. Discharge Planning awaiting placement- pending SSI. Problem Qualifiers (1) CVA (cerebral vascular accident): Qualified Codes: I63.9 - Cerebral infarction, unspecified (2) Stroke: Qualified Codes: I63.9 - Cerebral infarction, unspecified (3) Incontinence: Qualified Codes: R32 - Unspecified urinary incontinence Madhu Villaseñor MD Aug 12, 2017 08:59
[2017-08-12 12:31] VITALS: BP 105/49; PULSE 75; RESP 20; TEMP 97.6; O2SAT 98
[2017-08-12 16:48] VITALS: BP 95/56; PULSE 76; RESP 20; TEMP 97.8; O2SAT 95
[2017-08-12 20:54] VITALS: BP 109/62; PULSE 87; RESP 16; TEMP 97.7; O2SAT 96
[2017-08-12] MEDS: ZOLPIDEM TARTRATE 5 MG TAB PO PRN ×2 (21:49)
[2017-08-12] MEDS: guaiFENesin SOLUTION 200 MG/10 ML CUP PO PRN ×2 (21:56)
[2017-08-13 00:46] VITALS: BP 107/60; PULSE 101; RESP 18; TEMP 97.6; O2SAT 93
[2017-08-13] MEDS: CHLORHEXIDINE GLUCONATE 2 % 1 PACK (2 CLOTHS) TOP SCH ×2 (02:53)
[2017-08-13] MEDS: oxyCODONE/ACETAMINOPHEN 7.5 MG/325 MG TAB PO PRN ×10 (03:27→20:17)
[2017-08-13] MEDS: guaiFENesin SOLUTION 200 MG/10 ML CUP PO PRN ×6 (04:13→17:36)
[2017-08-13 04:14] VITALS: BP 97/67; PULSE 103; RESP 18; TEMP 97.9; O2SAT 92
[2017-08-13] MEDS: METOPROLOL TARTRATE 25 MG TAB PO SCH ×6 (05:26→21:59)
[2017-08-13 08:00] VITALS: BP 101/64; PULSE 88; RESP 18; TEMP 97.2; O2SAT 95
[2017-08-13] MEDS: LACTOBACILLUS ACIDOPHILUS 1 GM PACKET PO SCH ×4 (09:00→20:18)
[2017-08-13] MEDS: LISINOPRIL 10 MG TAB PO SCH ×2 (09:00)
[2017-08-13] MEDS: ARTIFICIAL TEARS OPTH SOLN 15 ML BTL EACH EYE SCH ×6 (09:06→17:36)
[2017-08-13] MEDS: SULFAMETHOXAZOLE-TRIMETHOPRIM DS 800-160 MG TAB PO SCH ×4 (09:06→20:17)
[2017-08-13] MEDS: RIFAXIMIN 550 MG TAB PO SCH ×4 (09:07→20:17)
[2017-08-13] MEDS: LACTULOSE SYRUP 20 GM/30 ML CUP PO SCH ×2 (09:07)
[2017-08-13] MEDS: PANTOPRAZOLE SOD 40 MG DELAYED RELEASE TAB PO SCH ×4 (09:07→20:17)
[2017-08-13] MEDS: SODIUM CHLORIDE 0.9% FLUSH 10 ML FLUSH IV FLUSH SCH ×4 (09:07→20:17)
[2017-08-13] MEDS: ASPIRIN 81 MG CHEW TAB PO SCH ×2 (09:09)
--- NOTE | 2017-08-13 10:48 | HHI.PR ---
Subjective Remarks walking in the room with no complaints. overall doing fine. denies pain. no fever. d/w the RN. Objective Vitals Vital Signs Date Time Temp Pulse Resp B/P (MAP) Pulse Ox O2 Delivery O2 Flow Rate FiO2 08/13/17 08:14 16 08/13/17 08:00 97.2 88 18 101/64 (76) 95 08/13/17 07:00 Room Air 08/13/17 04:14 97.9 103 18 97/67 (77) 92 08/13/17 02:31 Room Air 08/13/17 00:46 97.6 101 18 107/60 (76) 93 08/12/17 20:54 97.7 87 16 109/62 (78) 96 08/12/17 16:48 97.8 76 20 95/56 (69) 95 08/12/17 12:31 97.6 75 20 105/49 (67) 98 I/O 08/12/17 08/12/17 08/12/17 08/13/17 08/13/17 08/13/17 07:00 15:00 23:00 07:00 15:00 23:00 Intake Total 240 ml Balance 240 ml Intake Oral 240 ml # Voids 3 5 # Bowel Movements 0 Objective Remarks GENERAL: This is a well-nourished, well-developed patient, in no apparent distress. CARDIOVASCULAR: Regular rate and regular rhythm without murmurs, gallops, or rubs. RESPIRATORY: Clear to auscultation. Breath sounds equal bilaterally. No wheezes , rales, or rhonchi. GASTROINTESTINAL: Abdomen soft, non-tender, nondistended. Normal, active bowel sounds- minimal drainage from the site of PEG. MUSCULOSKELETAL: Extremities without clubbing, cyanosis, or edema. NEURO: Alert & Oriented x4 to person, place, time, situation. Moves all ext x4 Procedures PEG tube insertion. Medications and IVs Current Medications Propofol 100 ml @ As Directed STK-MED ONCE .ROUTE Last administered on t 12:43; Start 06/22/17 at 12:25; Stop 06/22/17 at 12:26; Status DC IV Flush (NS Flush) 2 ml UNSCH PRN IV FLUSH FLUSH AFTER USING IV ACCESS; Start 06/22/17 at 12:30; Stop 06/22/17 at 15:32; Status DC Sodium Chloride 1,000 ml @ 1,000 mls/hr Q1H IV Last administered on 06/22/17 12:43; Start 06/22/17 at 12:25; Stop 06/22/17 at 13:24; Status DC Etomidate (Amidate Inj) 20 mg ONCE ONCE IVP Last administered on 06/22/17 12: 44; Start 06/22/17 at 12:30; Stop 06/22/17 at 12:34; Status DC Albuterol/ Ipratropium (Duoneb Neb) 1 ampule Q15M INH Last administered on 06/22 13:16; Start 06/22/17 at 12:30; Stop 06/22/17 at 13:01; Status DC Sodium Chloride (NS Flush) 2 ml UNSCH PRN IVF FLUSH AFTER USING IV ACCESS Last administered on 06/22/17 12:44; Start 06/22/17 at 12:30; Stop 06/22/17 at 15:32 ; Status DC Sodium Chloride 1,000 ml @ 999 mls/hr Q1H1M IV Last administered on 06/22/17 12:56; Start 06/22/17 at 12:45; Stop 06/22/17 at 13:45; Status DC Sodium Chloride 1,000 ml @ 999 mls/hr Q1H1M IV Last administered on 06/22/17 12:56; Start 06/22/17 at 12:45; Stop 06/22/17 at 13:45; Status DC Methylprednisolone Sodium Succinate (SoluMEDROL INJ) 125 mg ONCE ONCE IV PUSH Last administered on 06/22/17 12:56; Start 06/22/17 at 12:45; Stop 06/22/17 at 12:46; Status DC Hydromorphone HCl (Dilaudid Pf Inj) 0.5 mg ONCE ONCE IV PUSH Last administered on 06/22/17 12:56; Start 06/22/17 at 12:45; Stop 06/22/17 at 12:46 ; Status DC Succinylcholine Chloride (Quelicin Inj) 200 mg STK-MED ONCE .ROUTE Last administered on 06/22/17 12:20; Start 06/22/17 at 13:15; Stop 06/22/17 at 13:16 ; Status DC Vancomycin HCl 850 mg/Sodium Chloride 258.5 ml @ 250 mls/hr ONCE ONCE IV Last administered on 06/22/17 16:06; Start 06/22/17 at 15:15; Stop 06/22/17 at 16:17; Status DC Cefepime HCl 1000 mg/Sodium Chloride 100 ml @ 200 mls/hr ONCE ONCE IV Last administered on 06/22/17 15:08; Start 06/22/17 at 15:15; Stop 06/22/17 at 15:46 ; Status DC Sodium Chloride 1,000 ml @ 84 mls/hr [id number] IV Last administered on 03:06; Start 06/22/17 at 15:09; Stop 06/23/17 at 07:25; Status DC Sodium Chloride (NS Flush) 2 ml UNSCH PRN IV FLUSH FLUSH AFTER USING IV ACCESS Last administered on 07/11/17 06:10; Start 06/22/17 at 15:15 Sodium Chloride (NS Flush) 2 ml BID IV FLUSH Last administered on 08/13/17 09 :07; Start 06/22/17 at 21:00 Acetaminophen (Tylenol) 650 mg Q6H PRN PO PAIN 1-10 AND/OR FEVER >101F; Start 06/22/17 at 15:15; Stop 06/23/17 at 07:23; Status DC Famotidine (Pepcid Inj) 10 mg Q12HR IV PUSH Last administered on 06/26/17 20:36 ; Start 06/22/17 at 21:00; Stop 06/26/17 at 22:58; Status DC Lorazepam (Ativan Inj) 1 mg Q1H PRN IV Agitation/Sedation Last administered on 06/30/17 07:50; Start 06/22/17 at 15:15; Stop 06/30/17 at 12:29; Status DC Artificial Tears (Tears Naturale Opth Soln) 1 drop TID EACH EYE Last administered on 08/13/17 09:06; Start 06/22/17 at 18:00 Ondansetron HCl (Zofran Inj) 4 mg Q6H PRN IV NAUSEA OR VOMITING; Start at 15:15 Albuterol/ Ipratropium (Duoneb Neb) 1 ampule Q6HR NEB INH Last administered on 06/26/17 15:29; Start 06/22/17 at 16:00; Stop 06/26/17 at 15:59; Status DC Albuterol Sulfate (Albuterol Neb) 2.5 mg Q2HR NEB PRN INH SOB/WHEEZING Last administered on 07/09/17 11:13; Start 06/22/17 at 15:15; Stop 07/09/17 at 14:25 ; Status DC Heparin Sodium (Porcine) (Heparin Inj) 5,000 units Q12H SQ Last administered on 06/29/17 14:38; Start 06/22/17 at 15:15; Status Future Hold Miscellaneous Information 1 [id number] Last administered on 06/22/17 15:15; Start 06/22/17 at 15:15 Chlorhexidine Gluconate (Chlorhexidine 2% Cloth) Taper DAILY@04 TOP Last administered on 07/19/17 04:00; Start 06/23/17 at 04:00; Stop 06/19/18 at 03:59 Chlorhexidine Gluconate (Chlorhexidine 2% Cloth) 3 pack UNSCH PRN TOP HYGIENIC CARE; Start 06/22/17 at 15:15 Senna/Docusate Sodium (Indy-Colace) 1 tab BID PO Last administered on 06/29/17 22:42; Start 06/22/17 at 21:00; Stop 06/30/17 at 11:09; Status DC Magnesium Hydroxide (Milk Of Magnesia Liq) 30 ml Q12H PRN PO MILD - MODERATE CONSTIPATION; Start 06/22/17 at 15:15 Sennosides (Senokot) 17.2 mg Q12H PRN PO MODERATE - SEVERE CONSTIPATION Last administered on 08/08/17 23:41; Start 06/22/17 at 15:15 Bisacodyl (Dulcolax Supp) 10 mg DAILY PRN RECTAL SEVERE CONSITIPATION Last administered on 07/24/17 08:28; Start 06/22/17 at 15:15 Lactulose (Lactulose Liq) 30 ml DAILY PRN PO SEVERE CONSITIPATION; Start at 15:15 Chlorhexidine Gluconate (Peridex 0.12% Liq) 15 ml BID@08,20 MT Last administered on 08/03/17 08:00; Start 06/22/17 at 20:00; Stop 08/10/17 at 11: 29; Status DC Propofol 100 ml @ 1.65 mls/hr TITRATE PRN IV SEDATION; Start 06/22/17 at 15:15 ; Stop 06/23/17 at 17:57; Status DC Fentanyl Citrate 250 ml @ 5 mls/hr TITRATE PRN IV SEDATION; Start 06/22/17 at 15:15; Stop 06/27/17 at 13:02; Status DC IV Flush (NS Flush) 2 ml BID IV FLUSH ; Start 06/22/17 at 21:00; Status UNV IV Flush (NS Flush) 2 ml UNSCH PRN IV FLUSH FLUSH AFTER USING IV ACCESS; Start 06/22/17 at 15:45; Status UNV Labetalol HCl (Trandate Inj) 10 mg Q2H PRN IV For SBP > 220 or DBP > 120; Start 06/22/17 at 15:45 Nicardipine HCl 25 mg/Sodium Chloride 260 ml @ 52 mls/hr TITRATE PRN IV Maintain BP goal; Start 06/22/17 at 16:00; Stop 08/10/17 at 11:29; Status DC Aspirin (Aspirin Chew) 81 mg DAILY PO Last administered on 08/13/17 09:09; Start 06/23/17 at 09:00; Status Future hold Insulin Aspart (NovoLOG SUPPLEMENTAL SCALE) 1 ACHS SQ Last administered on 06/22 16:54; Start 06/22/17 at 16:00; Stop 06/23/17 at 07:23; Status DC Dextrose (D50w (Vial) Inj) 50 ml UNSCH PRN IV PUSH HYPOGLYCEMIA-SEE COMMENTS; Start 06/22/17 at 15:45 Glucagon (Glucagon Inj) 1 mg UNSCH PRN OTHER HYPOGLYCEMIA-SEE COMMENTS; Start 06/22/17 at 15:45 Piperacillin Sod/ Tazobactam Sod 50 ml @ 100 mls/hr Q6H IV Last administered on 06/29/17 05:17; Start 06/22/17 at 17:00; Stop 06/29/17 at 08:00; Status DC Lactulose (Lactulose Liq) 30 ml QID PO Last administered on 06/29/17 22:42; Start 06/22/17 at 18:00; Stop 07/01/17 at 15:26; Status DC Propofol 100 ml @ 1.65 mls/hr TITRATE PRN IV Ordered RASS Last administered on 06/28/17 05:59; Start 06/22/17 at 17:15; Stop 06/29/17 at 07:21; Status DC Calcium Gluconate 2 gm/Sodium Chloride 120 ml @ 120 mls/hr ONCE ONCE IV Last administered on 06/23/17 05:32; Start 06/23/17 at 06:00; Stop 06/23/17 at 06:59 ; Status DC Insulin Aspart (NovoLOG SUPPLEMENTAL SCALE) 1 Q6HR SQ Last administered on 06:16; Start 06/23/17 at 12:00; Stop 07/05/17 at 16:27; Status DC Sodium Chloride 1,000 ml @ 999 mls/hr BOLUS ONCE IV Last administered on 06/23 08:49; Start 06/23/17 at 08:00; Stop 06/23/17 at 09:00; Status DC Sodium Bicarbonate 100 meq/Sterile Water 950 ml @ 110 mls/hr Q8H39M IV Last administered on 06/24/17 02:48; Start 06/23/17 at 07:30; Stop 06/24/17 at 09:10; Status DC Potassium Chloride (KCl Powder) 40 meq ONCE ONCE PO Last administered on 06:45; Start 06/24/17 at 06:45; Stop 06/24/17 at 06:46; Status DC Sodium Phosphate 15 mmol/Sodium Chloride 155 ml @ 38.75 mls/ hr ONCE ONCE IV Last administered on 06/24/17 08:27; Start 06/24/17 at 08:00; Stop 06/24/17 at 11: 59; Status DC Water (Free Water) VOLUME: 200 ML Q4HR G-TUBE Last administered on 07/02/17 16: 00; Start 06/24/17 at 12:00; Stop 07/05/17 at 10:15; Status DC Sodium Chloride 1,000 ml @ 999 mls/hr BOLUS ONCE IV Last administered on 10:41; Start 06/24/17 at 09:15; Stop 06/24/17 at 10:15; Status DC Metoprolol Tartrate (Lopressor) 12.5 mg Q12HR PO Last administered on 06/27/17 20:02; Start 06/24/17 at 21:00; Stop 06/29/17 at 07:55; Status DC Miscellaneous (Pill Splitter) 1 ea UNSCH PRN OTHER SEE LABEL COMMENTS; Start at 15:00 Pharmacy Profile Note 0 ml @ 0 mls/hr UNSCH OTHER ; Start 06/24/17 at 22:30; Stop 06/27/17 at 13:12; Status DC Vancomycin HCl 1000 mg/Sodium Chloride 250 ml @ 250 mls/hr ONCE ONCE IV Last administered on 06/24/17 22:46; Start 06/24/17 at 22:30; Stop 06/24/17 at 23:29; Status DC Potassium Phosphate 30 mmol/ Sodium Chloride 260 ml @ 43.333 mls/ hr ONCE ONCE IV Last administered on 06/25/17 11:00; Start 06/25/17 at 11:00; Stop at 16:59; Status DC Vancomycin HCl 1000 mg/Sodium Chloride 250 ml @ 250 mls/hr Q24H IV Last administered on 06/27/17 06:11; Start 06/26/17 at 02:00; Stop 06/27/17 at 09:08; Status DC Miscellaneous Information SPECIFIC LAB TO BE DRAWN: VANCO TROUGH DATE... ONCE ONCE .XX ; Start 06/27/17 at 01:45; Stop 06/27/17 at 01:46; Status DC Lisinopril (Prinivil) 5 mg DAILY OG-TUBE Last administered on 06/28/17 08:00; Start 06/27/17 at 09:00; Stop 06/28/17 at 08:48; Status DC Potassium Chloride (KCl Powder) 30 meq ONCE ONCE NG Last administered on 14:00; Start 06/26/17 at 14:00; Stop 06/26/17 at 14:01; Status DC Pantoprazole Sodium (Protonix Inj) 40 mg Q12H IV PUSH Last administered on 10:37; Start 06/26/17 at 23:00; Stop 06/27/17 at 13:02; Status DC Vancomycin HCl 1000 mg/Sodium Chloride 250 ml @ 250 mls/hr Q18H IV ; Start 06/28 at 00:00; Stop 06/28/17 at 00:00; Status DC Miscellaneous Information SPECIFIC LAB TO BE JAYLEN... ONCE ONCE .XX ; Start at 11:45; Stop 06/29/17 at 11:46; Status Cancel Levofloxacin/ Dextrose 150 ml @ 100 mls/hr Q24H IV Last administered on 14:04; Start 06/27/17 at 14:00; Stop 07/15/17 at 15:55; Status DC Pantoprazole Sodium 80 mg/ Sodium Chloride 100 ml @ 10 mls/hr Q10H IV Last administered on 06/28/17 22:58; Start 06/27/17 at 16:00; Stop 06/29/17 at 07:21; Status DC Potassium Chloride 100 ml @ 50 mls/hr Q2H PRN IV For Potassium 2.8 - 3.2 mEq/L ; Start 06/28/17 at 03:30; Stop 06/30/17 at 12:31; Status DC Potassium Chloride 100 ml @ 50 mls/hr Q2H PRN IV For Potassium 2.8 - 3.2 mEq/L ; Start 06/28/17 at 03:30; Stop 06/30/17 at 12:31; Status DC Potassium Bicarb/ Potassium Chloride (K-Lyte Cl Eff) 50 meq UNSCH PRN PO For Potassium 3.3 - 3.5 mEq/L; Start 06/28/17 at 03:30; Stop 06/30/17 at 12:31; Status DC Potassium Chloride 100 ml @ 25 mls/hr UNSCH PRN IV For Potassium 3.3 - 3.5 mEq /L; Start 06/28/17 at 03:30; Stop 06/30/17 at 12:31; Status DC Potassium Chloride 100 ml @ 50 mls/hr Q2H PRN IV For Potassium 3.3 - 3.5 mEq/ L Last administered on 06/28/17 07:10; Start 06/28/17 at 03:30; Stop 06/30/17 at 12:31; Status DC Magnesium Sulfate 4 gm/Sodium Chloride 100 ml @ 50 mls/hr UNSCH PRN IV For Magnesium 0.9 - 1.1 mg/dL; Start 06/28/17 at 03:30; Stop 06/30/17 at 12:31; Status DC Magnesium Oxide (Mag-Ox) 800 mg UNSCH PRN PO For Magnesium 1.2 - 1.6 mg/dL; Start 06/28/17 at 03:30; Stop 06/30/17 at 12:31; Status DC Magnesium Sulfate 2 gm/Sodium Chloride 100 ml @ 50 mls/hr UNSCH PRN IV For Magnesium 1.2 - 1.6 mg/dL; Start 06/28/17 at 03:30; Stop 06/30/17 at 12:31; Status DC Potassium Phosphate (K-Phos) 2,000 mg Q4H PRN PO For Phosphorus < 2.5 mg/dL; Start 06/28/17 at 03:30; Stop 06/30/17 at 12:31; Status DC Sodium Phosphate 30 mmol/Sodium Chloride 250 ml @ 42 mls/hr UNSCH PRN IV For Phosphorus < 2.5 mg/dL; Start 06/28/17 at 03:30; Stop 06/30/17 at 12:31; Status DC Potassium Phosphate (K-Phos) 2,000 mg UNSCH PRN PO/TUBE SEE LABEL COMMENTS; Start 06/28/17 at 03:30; Stop 06/30/17 at 12:31; Status DC Potassium Phosphate 30 mmol/ Sodium Chloride 260 ml @ 42 mls/hr UNSCH PRN IV SEE LABEL COMMENTS; Start 06/28/17 at 03:30; Stop 06/30/17 at 12:31; Status DC Lisinopril (Prinivil) 10 mg DAILY OG-TUBE ; Start 06/28/17 at 10:00; Stop at 13:47; Status DC Potassium Chloride/Sodium Chloride 1,000 ml @ 84 mls/hr [id number] IV Last administered on 06/28/17 13:22; Start 06/28/17 at 13:00; Stop 06/28/17 at 21:10; Status DC Aspirin (Aspirin Supp) 300 mg DAILY RECTAL Last administered on 06/29/17 09:20 ; Start 06/29/17 at 09:00; Stop 07/01/17 at 15:26; Status DC Dexamethasone Sodium Phosphate (Decadron Inj) 6 mg NOW ONCE IV Last administered on 06/28/17 21:55; Start 06/28/17 at 21:15; Stop 06/28/17 at 21:16; Status DC Dexamethasone Sodium Phosphate (Decadron Inj) 6 mg Q6H IV Last administered on 06/30/17 02:49; Start 06/29/17 at 03:00; Stop 06/30/17 at 03:01; Status DC Pantoprazole Sodium (Protonix Inj) 40 mg Q12H IV PUSH Last administered on 07/17 08:36; Start 06/29/17 at 08:00; Stop 07/17/17 at 09:44; Status DC Metoprolol Tartrate (Lopressor) 25 mg Q8HR PO Last administered on 08/12/17 06:22; Start 06/29/17 at 14:00 Hydralazine HCl (Apresoline Inj) 20 mg Q4H PRN IV PUSH SBP >160; Start 06/29/17 at 08:00; Stop 06/30/17 at 20:50; Status DC Haloperidol Lactate (Haldol Inj) 5 mg Q6H PRN IM AGITATION Last administered on 07/01/17 21:23; Start 06/30/17 at 12:30 Dextrose/Sodium Chloride 1,000 ml @ 100 mls/hr Q10H IV Last administered on 09:00; Start 06/30/17 at 13:00; Stop 07/01/17 at 15:26; Status DC Albuterol/ Ipratropium (Duoneb Neb) 1 ampule Q4HR NEB NEB Last administered on 07/04/17 08:31; Start 06/30/17 at 12:30; Stop 07/04/17 at 12:29; Status DC Morphine Sulfate (Morphine Inj) 2 mg Q3H PRN IV PUSH PAIN GREATER THAN 5 Last administered on 07/17/17 09:04; Start 06/30/17 at 12:30; Stop 07/17/17 at 09:44 ; Status DC Enalaprilat (Vasotec Inj) 2.5 mg Q6H PRN IV PUSH SBP > 160 Last administered on 07/14/17 12:10; Start 06/30/17 at 21:00 Lactulose (Lactulose Liq) 30 ml BID PO Last administered on 07/18/17 09:52; Start 07/01/17 at 21:00; Stop 07/18/17 at 11:37; Status DC Potassium Chloride 100 ml @ 50 mls/hr Q2H IV Last administered on 07/02/17 21: 31; Start 07/02/17 at 17:30; Stop 07/02/17 at 21:29; Status DC Magnesium Oxide (Mag-Ox) 400 mg ONCE ONCE PO Last administered on 07/02/17 16: 48; Start 07/02/17 at 16:15; Stop 07/02/17 at 16:16; Status DC Rifaximin (Xifaxan) 550 mg BID PO Last administered on 08/13/17 09:07; Start 07/03/17 at 09:00 Potassium Bicarb/ Potassium Chloride (K-Lyte Cl Eff) 75 meq ONCE ONCE PO ; Start 07/03/17 at 14:15; Stop 07/03/17 at 14:15; Status DC Potassium Chloride 100 ml @ 50 mls/hr Q2H IV Last administered on 07/03/17 23 :12; Start 07/03/17 at 15:00; Stop 07/03/17 at 18:59; Status DC Potassium Bicarbonate (Effer-K Eff) 75 meq ONCE ONCE PO Last administered on 14:52; Start 07/03/17 at 15:00; Stop 07/03/17 at 15:01; Status DC Potassium Bicarbonate (Effer-K Eff) 25 meq ONCE ONCE PO Last administered on 12:00; Start 07/05/17 at 10:15; Stop 07/05/17 at 10:17; Status DC Lisinopril (Prinivil) 10 mg DAILY PO Last administered on 08/12/17 08:28; Start 07/07/17 at 09:00 Lisinopril (Prinivil) 10 mg ONCE ONCE PO Last administered on 07/06/17 14:00 ; Start 07/06/17 at 14:00; Stop 07/06/17 at 14:01; Status DC Furosemide (Lasix Inj) 40 mg ONCE ONCE IV PUSH Last administered on 07/08/17 03:30; Start 07/08/17 at 04:30; Stop 07/08/17 at 04:31; Status DC Cefazolin Sodium (Ancef Inj) 1,000 mg ONCE ONCE IV Last administered on 13:04; Start 07/08/17 at 13:03; Stop 07/08/17 at 13:04; Status DC Propofol (Diprivan 200 Mg/20 ml Inj) 120 mg STK-MED ONCE IV ; Start 07/08/17 at 11:53; Stop 07/08/17 at 13:05; Status DC Albuterol/ Ipratropium (Duoneb Neb) 1 ampule ONCE ONCE NEB ; Start 07/09/17 at 14:30; Stop 07/09/17 at 14:31; Status Cancel Albuterol/ Ipratropium (Duoneb Neb) 1 ampule Q2HR NEB PRN NEB SOB/WHEEZING Last administered on 08/10/17 20:12; Start 07/09/17 at 14:00 Albuterol/ Ipratropium (Duoneb Neb) 1 ampule Q6HR WHILE AWAKE NEB NEB Last administered on 07/13/17 08:44; Start 07/09/17 at 14:00; Stop 07/13/17 at 13:59 ; Status DC Amoxicillin/ Clavulanate Potassium (Augmentin) 875 mg Q12HR PO Last administered on 07/16/17 08:19; Start 07/09/17 at 14:00; Stop 07/16/17 at 13:59 ; Status DC Lactobacillus Acidophilus (Lactinex Pkt) 1 gm BID PO Last administered on 08/13 09:00; Start 07/09/17 at 21:00 Methylprednisolone Sodium Succinate (SoluMEDROL INJ) 40 mg ONCE ONCE IV PUSH Last administered on 07/09/17 17:06; Start 07/09/17 at 14:00; Stop 07/09/17 at 14:24; Status DC Potassium Chloride (KCl Powder) 60 meq ONCE ONCE PO Last administered on 13:49; Start 07/10/17 at 10:30; Stop 07/10/17 at 10:31; Status DC Potassium Phosphate (K-Phos) 500 mg ONCE ONCE PO Last administered on 12:29; Start 07/10/17 at 10:30; Stop 07/10/17 at 10:31; Status DC Magnesium Oxide (Mag-Ox) 400 mg ONCE ONCE PO Last administered on 07/10/17 12 :29; Start 07/10/17 at 10:30; Stop 07/10/17 at 10:31; Status DC Potassium Phosphate (K-Phos) 500 mg ONCE ONCE PO Last administered on 12:44; Start 07/11/17 at 11:15; Stop 07/11/17 at 11:32; Status DC Potassium Bicarb/ Potassium Chloride (K-Lyte Cl Eff) 25 meq ONCE ONCE PO Last administered on 07/13/17 14:47; Start 07/13/17 at 12:00; Stop 07/13/17 at 12:01; Status DC Hydralazine HCl (Apresoline) 10 mg Q6HR PRN PO SBP>160, DBP>90; Start 07/14/17 at 15:45 Pantoprazole Sodium (Protonix) 40 mg Q12HR PO Last administered on 08/13/17 09:07; Start 07/17/17 at 21:00 Oxycodone/ Acetaminophen (Percocet 7.5-325 Mg) 1 tab Q4H PRN PO pain>5 Last administered on 08/13/17 07:14; Start 07/17/17 at 09:45 Lactulose (Lactulose Liq) 30 ml DAILY PO Last administered on 08/13/17 09:07 ; Start 07/19/17 at 09:00 Temazepam (Restoril) 15 mg HS PRN PO INSOMNIA Last administered on 08/08/17 23:42; Start 07/18/17 at 14:00 Pneumococcal Polyvalent Vaccine (Pneumovax-23 Inj) 25 mcg ONCE ONCE IM ; Start 07/20/17 at 10:00; Stop 07/20/17 at 10:01; Status Cancel Influenza Virus Vaccine (Flu (Quadrivalent) Vaccine Inj) 0.5 ml ONCE ONCE IM ; Start 07/20/17 at 10:00; Stop 07/20/17 at 10:01; Status Cancel Influenza Virus Vaccine (Flu (Quadrivalent) Vaccine Inj) 0.5 ml ONCE ONCE IM Last administered on 07/19/17 11:00; Start 07/19/17 at 09:00; Stop 07/19/17 at 09:01; Status DC Pneumococcal Polyvalent Vaccine (Pneumovax-23 Inj) 25 mcg ONCE ONCE IM ; Start 07/18/17 at 19:15; Stop 07/18/17 at 19:15; Status DC Pneumococcal Polyvalent Vaccine (Pneumovax-23 Inj) 25 mcg ONCE ONCE IM Last administered on 07/19/17 09:23; Start 07/19/17 at 09:00; Stop 07/19/17 at 09:01 ; Status DC IV Flush (NS Flush) 5 ml UNSCH PRN IV FLUSH FLUSH AFTER USING IV ACCESS; Start 07/25/17 at 11:15 Zolpidem Tartrate (Ambien) 5 mg HS PRN PO INSOMNIA Last administered on 22:53; Start 08/02/17 at 11:15; Stop 08/08/17 at 10:43; Status DC Guaifenesin/ Dextromethorphan (Robitussin Dm 200-20 Mg/10 ml Liq) 10 ml Q6H PRN PO cough ; Start 08/06/17 at 14:15; Stop 08/12/17 at 09:01; Status DC Diatrizoate Meglum/ Diatrizoate Sod ( Gastroview Liq) 18 ml ONCE ONCE PO Last administered on 08/07/17 16:19; Start 08/07/17 at 16:30; Stop 08/07/17 at 16:31; Status DC Zolpidem Tartrate (Ambien) 10 mg HS PRN PO INSOMNIA Last administered on 21:49; Start 08/08/17 at 11:00 Iohexol (Omnipaque 350 Inj) 72 ml STK-MED ONCE IVCONTRAST Last administered on 08/08/17 11:23; Start 08/08/17 at 11:23; Stop 08/08/17 at 11:30; Status DC Trimethoprim/ Sulfamethoxazole (Bactrim Ds 800-160 Mg) 1 tab Q12HR PO Last administered on 08/13/17 09:06; Start 08/11/17 at 10:15 Guaifenesin (Robitussin Liq) 200 mg Q6HR PRN PO COUGH Last administered on 04:13; Start 08/12/17 at 09:00 A/P Problem List: (1) Thrombocytopenia ICD Code: D69.6 - Thrombocytopenia, unspecified (2) Polycythemia ICD Code: D75.1 - Secondary polycythemia (3) CVA (cerebral vascular accident) ICD Code: I63.9 - Cerebral infarction, unspecified (4) Stroke ICD Code: I63.9 - Cerebral infarction, unspecified Status: Acute (5) Incontinence ICD Code: R32 - Unspecified urinary incontinence (6) Cystitis ICD Code: N30.90 - Cystitis, unspecified without hematuria Assessment and Plan A/P CVA , with expressive aphasia and right hemiparesis, dysphagia. Continue with aspirin LDL 36 therefore statin is not indicated PT/OT/speech therapy Appreciate input from neurology Continue current treatment Possible aspiration pneumonia-treated. s/p Augmentin 07/16/17 Hyperammonemia-resolved Continue lactulose daily Monitor ammonia level as needed. Acute hypoxemic respiratory failure Resolved Continue with DuoNeb when necessary and maintain oxygen saturation above 92% Hypertension Cardiomyopathy 2-D echo revealed LVEF of 45%. Continue beta marilou. PRN antihypertensives Appreciate input from cardiology who signed off Dysphagia-improving. PEG has been removed. diet per ST. drainage from the site of PEG/ low grade fever- no recurrent fever and abdominal pain has resolved. CT of the abdomen as noted above. continue Bactrim; fluid for the culture; pending ( d/w the RN). previously d/w GI . f/u with GI as outpatient. History of chronic of chronic benzodiazepine use Advised on cessation Upper GI and rectal bleed Elevated transaminases Hepatitis C antibody positive Currently on Protonix Appreciate input from GI who signed off s/p EGD with gastritis and esophagitis. HIDA scan 06/28 with distended gallbladder-no evidence of acute cholecystitis s/p PEG placement / removal History of incontinence Resolved Acute kidney injury Resolved Thrombocytopenia resolved. insomnia; ambien as needed. cough; antitussives as needed. Prophylaxis - GI - PO Protonix - DVT - SCD/heparin subcutaneous on hold due to GI bleed. Discharge Planning awaiting placement- pending SSI. Problem Qualifiers (1) CVA (cerebral vascular accident): Qualified Codes: I63.9 - Cerebral infarction, unspecified (2) Stroke: Qualified Codes: I63.9 - Cerebral infarction, unspecified (3) Incontinence: Qualified Codes: R32 - Unspecified urinary incontinence Madhu Villaseñor MD Aug 13, 2017 10:48
[2017-08-13 12:00] VITALS: BP_SYST 122; BP_SYST 82; BP_DIAS 82; PULSE 89; TEMP 97.4
[2017-08-13 16:00] VITALS: BP 103/68; PULSE 72; RESP 18; TEMP 97.3; O2SAT 96
[2017-08-13 20:52] VITALS: BP 119/72; PULSE 75; RESP 20; TEMP 97.3; O2SAT 97
[2017-08-13] MEDS: ZOLPIDEM TARTRATE 5 MG TAB PO PRN ×2 (21:58)
[2017-08-14 00:30] VITALS: BP 115/73; PULSE 75; RESP 20; TEMP 97.6; O2SAT 97
[2017-08-14] MEDS: oxyCODONE/ACETAMINOPHEN 7.5 MG/325 MG TAB PO PRN ×10 (02:02→18:15)
[2017-08-14] MEDS: CHLORHEXIDINE GLUCONATE 2 % 1 PACK (2 CLOTHS) TOP SCH ×4 (04:00→20:32)
[2017-08-14 05:12] VITALS: BP 102/62; PULSE 81; RESP 20; TEMP 97.8; O2SAT 92
[2017-08-14] MEDS: METOPROLOL TARTRATE 25 MG TAB PO SCH ×6 (05:15→20:32)
[2017-08-14] MEDS: guaiFENesin SOLUTION 200 MG/10 ML CUP PO PRN ×4 (06:47→17:02)
[2017-08-14 08:20] VITALS: BP 105/75; PULSE 74; RESP 20; TEMP 97.7; O2SAT 92
[2017-08-14] MEDS: LISINOPRIL 10 MG TAB PO SCH ×2 (09:00)
[2017-08-14] MEDS: LACTOBACILLUS ACIDOPHILUS 1 GM PACKET PO SCH ×4 (09:00→22:23)
[2017-08-14] MEDS: ARTIFICIAL TEARS OPTH SOLN 15 ML BTL EACH EYE SCH ×6 (09:03→18:15)
[2017-08-14] MEDS: LACTULOSE SYRUP 20 GM/30 ML CUP PO SCH ×2 (09:04)
[2017-08-14] MEDS: ASPIRIN 81 MG CHEW TAB PO SCH ×2 (09:05)
[2017-08-14] MEDS: SODIUM CHLORIDE 0.9% FLUSH 10 ML FLUSH IV FLUSH SCH ×4 (09:05→22:22)
[2017-08-14] MEDS: PANTOPRAZOLE SOD 40 MG DELAYED RELEASE TAB PO SCH ×4 (09:05→22:23)
[2017-08-14] MEDS: SULFAMETHOXAZOLE-TRIMETHOPRIM DS 800-160 MG TAB PO SCH ×4 (09:05→22:23)
[2017-08-14] MEDS: RIFAXIMIN 550 MG TAB PO SCH ×4 (09:05→22:22)
--- NOTE | 2017-08-14 09:35 | HHI.PR ---
Subjective Remarks in no acute distress. overall doing fine. no new complaints. afebrile. Objective Vitals Vital Signs Date Time Temp Pulse Resp B/P (MAP) Pulse Ox O2 Delivery O2 Flow Rate FiO2 08/14/17 08:20 97.7 74 20 105/75 (85) 92 08/14/17 05:12 97.8 81 20 102/62 (75) 92 08/14/17 00:30 97.6 75 20 115/73 (87) 97 08/13/17 20:52 97.3 75 20 119/72 (88) 97 08/13/17 20:15 97 Room Air 08/13/17 16:23 18 08/13/17 16:00 97.3 72 18 103/68 (80) 96 08/13/17 12:00 97.4 89 122/82 (95) I/O 08/13/17 08/13/17 08/13/17 08/14/17 08/14/17 08/14/17 07:00 15:00 23:00 07:00 15:00 23:00 Intake Total 240 ml 1000 ml Balance 240 ml 1000 ml Intake Oral 240 ml 1000 ml # Voids 5 5 1 # Bowel Movements 0 1 Imaging Last Impressions Abdomen/Pelvis CT 08/08/17 0000 Signed Impressions: Service Date/Time: Tuesday, August 08, 2017 11:16 - CONCLUSION: PEG tube site remains patent from stomach to the anterior abdominal wall with induration in the rectus. Patchy airspace disease in both lungs. Rudy Meng MD FACR Abdomen X-Ray 08/06/17 0000 Signed Impressions: Service Date/Time: Sunday, August 06, 2017 00:36 - CONCLUSION: PEG tube overlying the left lower abdomen. Christopher Sarmiento MD Modified Barium Swallow 07/19/17 0000 Signed Impressions: Service Date/Time: Wednesday, July 19, 2017 00:00 - CONCLUSION: Penetration and aspiration as above within liquids, penetration with nectar thick consistency. Jude Braxton MD Chest X-Ray 07/09/17 0000 Signed Impressions: Service Date/Time: Sunday, July 09, 2017 14:04 - CONCLUSION: 1. Stable mild central bibasilar patchy airspace disease. 2. No significant interval change. Gustavo Santoro MD Head CT 07/06/17 0000 Signed Impressions: Service Date/Time: Thursday, July 06, 2017 09:07 - CONCLUSION: 1. 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 2. Mucous retention cyst within left maxillary and right sphenoid sinuses. Juan Pablo Huffman MD Hepatobiliary Scan Nuclear Medicine 06/28/17 0900 Signed Impressions: Service Date/Time: Wednesday, June 28, 2017 10:17 - CONCLUSION: Nonspecific persistent distention of the gallbladder. No evidence of acute cholecystitis or biliary obstruction. Christopher Gutierrez MD Lung Scan-VQ Nuclear Medicine 06/24/17 0000 Signed Impressions: Service Date/Time: Saturday, June 24, 2017 12:21 - CONCLUSION: 1. Low probability of pulmonary embolism Jose Richard MD Head Magnetic Resonance Angiography 06/24/17 0000 Signed Impressions: Service Date/Time: Saturday, June 24, 2017 13:37 - CONCLUSION: Negative for major branch vessels obstruction in spite of MRI findings. Rudy Meng MD FACR Brain MRI 06/24/17 0000 Signed Impressions: Service Date/Time: Saturday, June 24, 2017 13:37 - CONCLUSION: Findings consistent with acute infarct left sylvian region anteriorly without hemorrhage. Rudy Meng MD FACR Carotid Artery Ultrasound 06/22/17 0000 Signed Impressions: Service Date/Time: Thursday, June 22, 2017 15:56 - CONCLUSION: No evidence of flow-limiting carotid stenosis. Christopher Leonardo MD Abdomen Ultrasound 06/22/17 0000 Signed Impressions: Service Date/Time: Thursday, June 22, 2017 16:30 - CONCLUSION: Distended gallbladder with wall thickening and internal debris. Mild calyceal dilatation involving the kidneys bilaterally Christopher Leonardo MD Objective Remarks GENERAL: This is a well-nourished, well-developed patient, in no apparent distress. CARDIOVASCULAR: Regular rate and regular rhythm without murmurs, gallops, or rubs. RESPIRATORY: Clear to auscultation. Breath sounds equal bilaterally. No wheezes , rales, or rhonchi. GASTROINTESTINAL: Abdomen soft, non-tender, nondistended. Normal, active bowel sounds- minimal drainage from the site of PEG. MUSCULOSKELETAL: Extremities without clubbing, cyanosis, or edema. NEURO: Alert & Oriented x4 to person, place, time, situation. Moves all ext x4 Procedures PEG tube insertion. Medications and IVs Current Medications Propofol 100 ml @ As Directed STK-MED ONCE .ROUTE Last administered on 12:43; Start 06/22/17 at 12:25; Stop 06/22/17 at 12:26; Status DC IV Flush (NS Flush) 2 ml UNSCH PRN IV FLUSH FLUSH AFTER USING IV ACCESS; Start 06/22/17 at 12:30; Stop 06/22/17 at 15:32; Status DC Sodium Chloride 1,000 ml @ 1,000 mls/hr Q1H IV Last administered on 06/22/17 12:43; Start 06/22/17 at 12:25; Stop 06/22/17 at 13:24; Status DC Etomidate (Amidate Inj) 20 mg ONCE ONCE IVP Last administered on 06/22/17 12: 44; Start 06/22/17 at 12:30; Stop 06/22/17 at 12:34; Status DC Albuterol/ Ipratropium (Duoneb Neb) 1 ampule Q15M INH Last administered on 06/22 13:16; Start 06/22/17 at 12:30; Stop 06/22/17 at 13:01; Status DC Sodium Chloride (NS Flush) 2 ml UNSCH PRN IVF FLUSH AFTER USING IV ACCESS Last administered on 06/22/17 12:44; Start 06/22/17 at 12:30; Stop 06/22/17 at 15:32 ; Status DC Sodium Chloride 1,000 ml @ 999 mls/hr Q1H1M IV Last administered on 06/22/17 12:56; Start 06/22/17 at 12:45; Stop 06/22/17 at 13:45; Status DC Sodium Chloride 1,000 ml @ 999 mls/hr Q1H1M IV Last administered on 06/22/17 12:56; Start 06/22/17 at 12:45; Stop 06/22/17 at 13:45; Status DC Methylprednisolone Sodium Succinate (SoluMEDROL INJ) 125 mg ONCE ONCE IV PUSH Last administered on 06/22/17 12:56; Start 06/22/17 at 12:45; Stop 06/22/17 at 12:46; Status DC Hydromorphone HCl (Dilaudid Pf Inj) 0.5 mg ONCE ONCE IV PUSH Last administered on 06/22/17 12:56; Start 06/22/17 at 12:45; Stop 06/22/17 at 12:46 ; Status DC Succinylcholine Chloride (Quelicin Inj) 200 mg STK-MED ONCE .ROUTE Last administered on 06/22/17 12:20; Start 06/22/17 at 13:15; Stop 06/22/17 at 13:16 ; Status DC Vancomycin HCl 850 mg/Sodium Chloride 258.5 ml @ 250 mls/hr ONCE ONCE IV Last administered on 06/22/17 16:06; Start 06/22/17 at 15:15; Stop 06/22/17 at 16:17; Status DC Cefepime HCl 1000 mg/Sodium Chloride 100 ml @ 200 mls/hr ONCE ONCE IV Last administered on 06/22/17 15:08; Start 06/22/17 at 15:15; Stop 06/22/17 at 15:46 ; Status DC Sodium Chloride 1,000 ml @ 84 mls/hr [id number] IV Last administered on 03:06; Start 06/22/17 at 15:09; Stop 06/23/17 at 07:25; Status DC Sodium Chloride (NS Flush) 2 ml UNSCH PRN IV FLUSH FLUSH AFTER USING IV ACCESS Last administered on 07/11/17 06:10; Start 06/22/17 at 15:15 Sodium Chloride (NS Flush) 2 ml BID IV FLUSH Last administered on 08/14/17 09 :05; Start 06/22/17 at 21:00 Acetaminophen (Tylenol) 650 mg Q6H PRN PO PAIN 1-10 AND/OR FEVER >101F; Start 06/22/17 at 15:15; Stop 06/23/17 at 07:23; Status DC Famotidine (Pepcid Inj) 10 mg Q12HR IV PUSH Last administered on 06/26/17 20:36 ; Start 06/22/17 at 21:00; Stop 06/26/17 at 22:58; Status DC Lorazepam (Ativan Inj) 1 mg Q1H PRN IV Agitation/Sedation Last administered on 06/30/17 07:50; Start 06/22/17 at 15:15; Stop 06/30/17 at 12:29; Status DC Artificial Tears (Tears Naturale Opth Soln) 1 drop TID EACH EYE Last administered on 08/14/17 09:03; Start 06/22/17 at 18:00 Ondansetron HCl (Zofran Inj) 4 mg Q6H PRN IV NAUSEA OR VOMITING; Start at 15:15 Albuterol/ Ipratropium (Duoneb Neb) 1 ampule Q6HR NEB INH Last administered on 06/26/17 15:29; Start 06/22/17 at 16:00; Stop 06/26/17 at 15:59; Status DC Albuterol Sulfate (Albuterol Neb) 2.5 mg Q2HR NEB PRN INH SOB/WHEEZING Last administered on 07/09/17 11:13; Start 06/22/17 at 15:15; Stop 07/09/17 at 14:25 ; Status DC Heparin Sodium (Porcine) (Heparin Inj) 5,000 units Q12H SQ Last administered on 06/29/17 14:38; Start 06/22/17 at 15:15; Status Future Hold Miscellaneous Information 1 [id number] Last administered on 06/22/17 15:15; Start 06/22/17 at 15:15 Chlorhexidine Gluconate (Chlorhexidine 2% Cloth) Taper DAILY@04 TOP Last administered on 07/19/17 04:00; Start 06/23/17 at 04:00; Stop 06/19/18 at 03:59 Chlorhexidine Gluconate (Chlorhexidine 2% Cloth) 3 pack UNSCH PRN TOP HYGIENIC CARE; Start 06/22/17 at 15:15 Senna/Docusate Sodium (Indy-Colace) 1 tab BID PO Last administered on 06/29/17 22:42; Start 06/22/17 at 21:00; Stop 06/30/17 at 11:09; Status DC Magnesium Hydroxide (Milk Of Magnesia Liq) 30 ml Q12H PRN PO MILD - MODERATE CONSTIPATION; Start 06/22/17 at 15:15 Sennosides (Senokot) 17.2 mg Q12H PRN PO MODERATE - SEVERE CONSTIPATION Last administered on 08/08/17 23:41; Start 06/22/17 at 15:15 Bisacodyl (Dulcolax Supp) 10 mg DAILY PRN RECTAL SEVERE CONSITIPATION Last administered on 07/24/17 08:28; Start 06/22/17 at 15:15 Lactulose (Lactulose Liq) 30 ml DAILY PRN PO SEVERE CONSITIPATION; Start at 15:15 Chlorhexidine Gluconate (Peridex 0.12% Liq) 15 ml BID@08,20 MT Last administered on 08/03/17 08:00; Start 06/22/17 at 20:00; Stop 08/10/17 at 11: 29; Status DC Propofol 100 ml @ 1.65 mls/hr TITRATE PRN IV SEDATION; Start 06/22/17 at 15:15 ; Stop 06/23/17 at 17:57; Status DC Fentanyl Citrate 250 ml @ 5 mls/hr TITRATE PRN IV SEDATION; Start 06/22/17 at 15:15; Stop 06/27/17 at 13:02; Status DC IV Flush (NS Flush) 2 ml BID IV FLUSH ; Start 06/22/17 at 21:00; Status UNV IV Flush (NS Flush) 2 ml UNSCH PRN IV FLUSH FLUSH AFTER USING IV ACCESS; Start 06/22/17 at 15:45; Status UNV Labetalol HCl (Trandate Inj) 10 mg Q2H PRN IV For SBP > 220 or DBP > 120; Start 06/22/17 at 15:45 Nicardipine HCl 25 mg/Sodium Chloride 260 ml @ 52 mls/hr TITRATE PRN IV Maintain BP goal; Start 06/22/17 at 16:00; Stop 08/10/17 at 11:29; Status DC Aspirin (Aspirin Chew) 81 mg DAILY PO Last administered on 08/14/17 09:05; Start 06/23/17 at 09:00; Status Future hold Insulin Aspart (NovoLOG SUPPLEMENTAL SCALE) 1 ACHS SQ Last administered on 06/22 16:54; Start 06/22/17 at 16:00; Stop 06/23/17 at 07:23; Status DC Dextrose (D50w (Vial) Inj) 50 ml UNSCH PRN IV PUSH HYPOGLYCEMIA-SEE COMMENTS; Start 06/22/17 at 15:45 Glucagon (Glucagon Inj) 1 mg UNSCH PRN OTHER HYPOGLYCEMIA-SEE COMMENTS; Start 06/22/17 at 15:45 Piperacillin Sod/ Tazobactam Sod 50 ml @ 100 mls/hr Q6H IV Last administered on 06/29/17 05:17; Start 06/22/17 at 17:00; Stop 06/29/17 at 08:00; Status DC Lactulose (Lactulose Liq) 30 ml QID PO Last administered on 06/29/17 22:42; Start 06/22/17 at 18:00; Stop 07/01/17 at 15:26; Status DC Propofol 100 ml @ 1.65 mls/hr TITRATE PRN IV Ordered RASS Last administered on 06/28/17 05:59; Start 06/22/17 at 17:15; Stop 06/29/17 at 07:21; Status DC Calcium Gluconate 2 gm/Sodium Chloride 120 ml @ 120 mls/hr ONCE ONCE IV Last administered on 06/23/17 05:32; Start 06/23/17 at 06:00; Stop 06/23/17 at 06:59 ; Status DC Insulin Aspart (NovoLOG SUPPLEMENTAL SCALE) 1 Q6HR SQ Last administered on 06:16; Start 06/23/17 at 12:00; Stop 07/05/17 at 16:27; Status DC Sodium Chloride 1,000 ml @ 999 mls/hr BOLUS ONCE IV Last administered on 06/23 08:49; Start 06/23/17 at 08:00; Stop 06/23/17 at 09:00; Status DC Sodium Bicarbonate 100 meq/Sterile Water 950 ml @ 110 mls/hr Q8H39M IV Last administered on 06/24/17 02:48; Start 06/23/17 at 07:30; Stop 06/24/17 at 09:10; Status DC Potassium Chloride (KCl Powder) 40 meq ONCE ONCE PO Last administered on 06:45; Start 06/24/17 at 06:45; Stop 06/24/17 at 06:46; Status DC Sodium Phosphate 15 mmol/Sodium Chloride 155 ml @ 38.75 mls/ hr ONCE ONCE IV Last administered on 06/24/17 08:27; Start 06/24/17 at 08:00; Stop 06/24/17 at 11: 59; Status DC Water (Free Water) VOLUME: 200 ML Q4HR G-TUBE Last administered on 07/02/17 16: 00; Start 06/24/17 at 12:00; Stop 07/05/17 at 10:15; Status DC Sodium Chloride 1,000 ml @ 999 mls/hr BOLUS ONCE IV Last administered on 10:41; Start 06/24/17 at 09:15; Stop 06/24/17 at 10:15; Status DC Metoprolol Tartrate (Lopressor) 12.5 mg Q12HR PO Last administered on 06/27/17 20:02; Start 06/24/17 at 21:00; Stop 06/29/17 at 07:55; Status DC Miscellaneous (Pill Splitter) 1 ea UNSCH PRN OTHER SEE LABEL COMMENTS; Start at 15:00 Pharmacy Profile Note 0 ml @ 0 mls/hr UNSCH OTHER ; Start 06/24/17 at 22:30; Stop 06/27/17 at 13:12; Status DC Vancomycin HCl 1000 mg/Sodium Chloride 250 ml @ 250 mls/hr ONCE ONCE IV Last administered on 06/24/17 22:46; Start 06/24/17 at 22:30; Stop 06/24/17 at 23:29; Status DC Potassium Phosphate 30 mmol/ Sodium Chloride 260 ml @ 43.333 mls/ hr ONCE ONCE IV Last administered on 06/25/17 11:00; Start 06/25/17 at 11:00; Stop at 16:59; Status DC Vancomycin HCl 1000 mg/Sodium Chloride 250 ml @ 250 mls/hr Q24H IV Last administered on 06/27/17 06:11; Start 06/26/17 at 02:00; Stop 06/27/17 at 09:08; Status DC Miscellaneous Information SPECIFIC LAB TO BE DRAWN: VANCO TROUGH DATE... ONCE ONCE .XX ; Start 06/27/17 at 01:45; Stop 06/27/17 at 01:46; Status DC Lisinopril (Prinivil) 5 mg DAILY OG-TUBE Last administered on 06/28/17 08:00; Start 06/27/17 at 09:00; Stop 06/28/17 at 08:48; Status DC Potassium Chloride (KCl Powder) 30 meq ONCE ONCE NG Last administered on 14:00; Start 06/26/17 at 14:00; Stop 06/26/17 at 14:01; Status DC Pantoprazole Sodium (Protonix Inj) 40 mg Q12H IV PUSH Last administered on 10:37; Start 06/26/17 at 23:00; Stop 06/27/17 at 13:02; Status DC Vancomycin HCl 1000 mg/Sodium Chloride 250 ml @ 250 mls/hr Q18H IV ; Start 06/28 at 00:00; Stop 06/28/17 at 00:00; Status DC Miscellaneous Information SPECIFIC LAB TO BE ... ONCE ONCE .XX ; Start at 11:45; Stop 06/29/17 at 11:46; Status Cancel Levofloxacin/ Dextrose 150 ml @ 100 mls/hr Q24H IV Last administered on 14:04; Start 06/27/17 at 14:00; Stop 07/15/17 at 15:55; Status DC Pantoprazole Sodium 80 mg/ Sodium Chloride 100 ml @ 10 mls/hr Q10H IV Last administered on 06/28/17 22:58; Start 06/27/17 at 16:00; Stop 06/29/17 at 07:21; Status DC Potassium Chloride 100 ml @ 50 mls/hr Q2H PRN IV For Potassium 2.8 - 3.2 mEq/L ; Start 06/28/17 at 03:30; Stop 06/30/17 at 12:31; Status DC Potassium Chloride 100 ml @ 50 mls/hr Q2H PRN IV For Potassium 2.8 - 3.2 mEq/L ; Start 06/28/17 at 03:30; Stop 06/30/17 at 12:31; Status DC Potassium Bicarb/ Potassium Chloride (K-Lyte Cl Eff) 50 meq UNSCH PRN PO For Potassium 3.3 - 3.5 mEq/L; Start 06/28/17 at 03:30; Stop 06/30/17 at 12:31; Status DC Potassium Chloride 100 ml @ 25 mls/hr UNSCH PRN IV For Potassium 3.3 - 3.5 mEq /L; Start 06/28/17 at 03:30; Stop 06/30/17 at 12:31; Status DC Potassium Chloride 100 ml @ 50 mls/hr Q2H PRN IV For Potassium 3.3 - 3.5 mEq/ L Last administered on 06/28/17t 07:10; Start 06/28/17 at 03:30; Stop 06/30/17 at 12:31; Status DC Magnesium Sulfate 4 gm/Sodium Chloride 100 ml @ 50 mls/hr UNSCH PRN IV For Magnesium 0.9 - 1.1 mg/dL; Start 06/28/17 at 03:30; Stop 06/30/17 at 12:31; Status DC Magnesium Oxide (Mag-Ox) 800 mg UNSCH PRN PO For Magnesium 1.2 - 1.6 mg/dL; Start 06/28/17 at 03:30; Stop 06/30/17 at 12:31; Status DC Magnesium Sulfate 2 gm/Sodium Chloride 100 ml @ 50 mls/hr UNSCH PRN IV For Magnesium 1.2 - 1.6 mg/dL; Start 06/28/17 at 03:30; Stop 06/30/17 at 12:31; Status DC Potassium Phosphate (K-Phos) 2,000 mg Q4H PRN PO For Phosphorus < 2.5 mg/dL; Start 06/28/17 at 03:30; Stop 06/30/17 at 12:31; Status DC Sodium Phosphate 30 mmol/Sodium Chloride 250 ml @ 42 mls/hr UNSCH PRN IV For Phosphorus < 2.5 mg/dL; Start 06/28/17 at 03:30; Stop 06/30/17 at 12:31; Status DC Potassium Phosphate (K-Phos) 2,000 mg UNSCH PRN PO/TUBE SEE LABEL COMMENTS; Start 06/28/17 at 03:30; Stop 06/30/17 at 12:31; Status DC Potassium Phosphate 30 mmol/ Sodium Chloride 260 ml @ 42 mls/hr UNSCH PRN IV SEE LABEL COMMENTS; Start 06/28/17 at 03:30; Stop 06/30/17 at 12:31; Status DC Lisinopril (Prinivil) 10 mg DAILY OG-TUBE ; Start 06/28/17 at 10:00; Stop at 13:47; Status DC Potassium Chloride/Sodium Chloride 1,000 ml @ 84 mls/hr [id number] IV Last administered on 06/28/17 13:22; Start 06/28/17 at 13:00; Stop 06/28/17 at 21:10; Status DC Aspirin (Aspirin Supp) 300 mg DAILY RECTAL Last administered on 06/29/17 09:20 ; Start 06/29/17 at 09:00; Stop 07/01/17 at 15:26; Status DC Dexamethasone Sodium Phosphate (Decadron Inj) 6 mg NOW ONCE IV Last administered on 06/28/17 21:55; Start 06/28/17 at 21:15; Stop 06/28/17 at 21:16; Status DC Dexamethasone Sodium Phosphate (Decadron Inj) 6 mg Q6H IV Last administered on 06/30/17 02:49; Start 06/29/17 at 03:00; Stop 06/30/17 at 03:01; Status DC Pantoprazole Sodium (Protonix Inj) 40 mg Q12H IV PUSH Last administered on 07/17 08:36; Start 06/29/17 at 08:00; Stop 07/17/17 at 09:44; Status DC Metoprolol Tartrate (Lopressor) 25 mg Q8HR PO Last administered on 08/13/17 21:59; Start 06/29/17 at 14:00 Hydralazine HCl (Apresoline Inj) 20 mg Q4H PRN IV PUSH SBP >160; Start 06/29/17 at 08:00; Stop 06/30/17 at 20:50; Status DC Haloperidol Lactate (Haldol Inj) 5 mg Q6H PRN IM AGITATION Last administered on 07/01/17 21:23; Start 06/30/17 at 12:30 Dextrose/Sodium Chloride 1,000 ml @ 100 mls/hr Q10H IV Last administered on 09:00; Start 06/30/17 at 13:00; Stop 07/01/17 at 15:26; Status DC Albuterol/ Ipratropium (Duoneb Neb) 1 ampule Q4HR NEB NEB Last administered on 07/04/17 08:31; Start 06/30/17 at 12:30; Stop 07/04/17 at 12:29; Status DC Morphine Sulfate (Morphine Inj) 2 mg Q3H PRN IV PUSH PAIN GREATER THAN 5 Last administered on 07/17/17 09:04; Start 06/30/17 at 12:30; Stop 07/17/17 at 09:44 ; Status DC Enalaprilat (Vasotec Inj) 2.5 mg Q6H PRN IV PUSH SBP > 160 Last administered on 07/14/17 12:10; Start 06/30/17 at 21:00 Lactulose (Lactulose Liq) 30 ml BID PO Last administered on 07/18/17 09:52; Start 07/01/17 at 21:00; Stop 07/18/17 at 11:37; Status DC Potassium Chloride 100 ml @ 50 mls/hr Q2H IV Last administered on 07/02/17 21: 31; Start 07/02/17 at 17:30; Stop 07/02/17 at 21:29; Status DC Magnesium Oxide (Mag-Ox) 400 mg ONCE ONCE PO Last administered on 07/02/17 16: 48; Start 07/02/17 at 16:15; Stop 07/02/17 at 16:16; Status DC Rifaximin (Xifaxan) 550 mg BID PO Last administered on 08/14/17 09:05; Start 07/03/17 at 09:00 Potassium Bicarb/ Potassium Chloride (K-Lyte Cl Eff) 75 meq ONCE ONCE PO ; Start 07/03/17 at 14:15; Stop 07/03/17 at 14:15; Status DC Potassium Chloride 100 ml @ 50 mls/hr Q2H IV Last administered on 07/03/17 23 :12; Start 07/03/17 at 15:00; Stop 07/03/17 at 18:59; Status DC Potassium Bicarbonate (Effer-K Eff) 75 meq ONCE ONCE PO Last administered on 14:52; Start 07/03/17 at 15:00; Stop 07/03/17 at 15:01; Status DC Potassium Bicarbonate (Effer-K Eff) 25 meq ONCE ONCE PO Last administered on 12:00; Start 07/05/17 at 10:15; Stop 07/05/17 at 10:17; Status DC Lisinopril (Prinivil) 10 mg DAILY PO Last administered on 08/12/17 08:28; Start 07/07/17 at 09:00 Lisinopril (Prinivil) 10 mg ONCE ONCE PO Last administered on 07/06/17 14:00 ; Start 07/06/17 at 14:00; Stop 07/06/17 at 14:01; Status DC Furosemide (Lasix Inj) 40 mg ONCE ONCE IV PUSH Last administered on 07/08/17 03:30; Start 07/08/17 at 04:30; Stop 07/08/17 at 04:31; Status DC Cefazolin Sodium (Ancef Inj) 1,000 mg ONCE ONCE IV Last administered on 13:04; Start 07/08/17 at 13:03; Stop 07/08/17 at 13:04; Status DC Propofol (Diprivan 200 Mg/20 ml Inj) 120 mg STK-MED ONCE IV ; Start 07/08/17 at 11:53; Stop 07/08/17 at 13:05; Status DC Albuterol/ Ipratropium (Duoneb Neb) 1 ampule ONCE ONCE NEB ; Start 07/09/17 at 14:30; Stop 07/09/17 at 14:31; Status Cancel Albuterol/ Ipratropium (Duoneb Neb) 1 ampule Q2HR NEB PRN NEB SOB/WHEEZING Last administered on 08/10/17 20:12; Start 07/09/17 at 14:00 Albuterol/ Ipratropium (Duoneb Neb) 1 ampule Q6HR WHILE AWAKE NEB NEB Last administered on 07/13/17 08:44; Start 07/09/17 at 14:00; Stop 07/13/17 at 13:59 ; Status DC Amoxicillin/ Clavulanate Potassium (Augmentin) 875 mg Q12HR PO Last administered on 07/16/17 08:19; Start 07/09/17 at 14:00; Stop 07/16/17 at 13:59 ; Status DC Lactobacillus Acidophilus (Lactinex Pkt) 1 gm BID PO Last administered on 08/14 09:00; Start 07/09/17 at 21:00 Methylprednisolone Sodium Succinate (SoluMEDROL INJ) 40 mg ONCE ONCE IV PUSH Last administered on 07/09/17 17:06; Start 07/09/17 at 14:00; Stop 07/09/17 at 14:24; Status DC Potassium Chloride (KCl Powder) 60 meq ONCE ONCE PO Last administered on 13:49; Start 07/10/17 at 10:30; Stop 07/10/17 at 10:31; Status DC Potassium Phosphate (K-Phos) 500 mg ONCE ONCE PO Last administered on 12:29; Start 07/10/17 at 10:30; Stop 07/10/17 at 10:31; Status DC Magnesium Oxide (Mag-Ox) 400 mg ONCE ONCE PO Last administered on 07/10/17 12 :29; Start 07/10/17 at 10:30; Stop 07/10/17 at 10:31; Status DC Potassium Phosphate (K-Phos) 500 mg ONCE ONCE PO Last administered on 12:44; Start 07/11/17 at 11:15; Stop 07/11/17 at 11:32; Status DC Potassium Bicarb/ Potassium Chloride (K-Lyte Cl Eff) 25 meq ONCE ONCE PO Last administered on 07/13/17 14:47; Start 07/13/17 at 12:00; Stop 07/13/17 at 12:01; Status DC Hydralazine HCl (Apresoline) 10 mg Q6HR PRN PO SBP>160, DBP>90; Start 07/14/17 at 15:45 Pantoprazole Sodium (Protonix) 40 mg Q12HR PO Last administered on 08/14/17 09:05; Start 07/17/17 at 21:00 Oxycodone/ Acetaminophen (Percocet 7.5-325 Mg) 1 tab Q4H PRN PO pain>5 Last administered on 08/14/17 06:06; Start 07/17/17 at 09:45 Lactulose (Lactulose Liq) 30 ml DAILY PO Last administered on 08/14/17 09:04 ; Start 07/19/17 at 09:00 Temazepam (Restoril) 15 mg HS PRN PO INSOMNIA Last administered on 08/08/17 23:42; Start 07/18/17 at 14:00 Pneumococcal Polyvalent Vaccine (Pneumovax-23 Inj) 25 mcg ONCE ONCE IM ; Start 07/20/17 at 10:00; Stop 07/20/17 at 10:01; Status Cancel Influenza Virus Vaccine (Flu (Quadrivalent) Vaccine Inj) 0.5 ml ONCE ONCE IM ; Start 07/20/17 at 10:00; Stop 07/20/17 at 10:01; Status Cancel Influenza Virus Vaccine (Flu (Quadrivalent) Vaccine Inj) 0.5 ml ONCE ONCE IM Last administered on 07/19/17 11:00; Start 07/19/17 at 09:00; Stop 07/19/17 at 09:01; Status DC Pneumococcal Polyvalent Vaccine (Pneumovax-23 Inj) 25 mcg ONCE ONCE IM ; Start 07/18/17 at 19:15; Stop 07/18/17 at 19:15; Status DC Pneumococcal Polyvalent Vaccine (Pneumovax-23 Inj) 25 mcg ONCE ONCE IM Last administered on 07/19/17 09:23; Start 07/19/17 at 09:00; Stop 07/19/17 at 09:01 ; Status DC IV Flush (NS Flush) 5 ml UNSCH PRN IV FLUSH FLUSH AFTER USING IV ACCESS; Start 07/25/17 at 11:15 Zolpidem Tartrate (Ambien) 5 mg HS PRN PO INSOMNIA Last administered on 22:53; Start 08/02/17 at 11:15; Stop 08/08/17 at 10:43; Status DC Guaifenesin/ Dextromethorphan (Robitussin Dm 200-20 Mg/10 ml Liq) 10 ml Q6H PRN PO cough ; Start 08/06/17 at 14:15; Stop 08/12/17 at 09:01; Status DC Diatrizoate Meglum/ Diatrizoate Sod ( Gastroview Liq) 18 ml ONCE ONCE PO Last administered on 08/07/17 16:19; Start 08/07/17 at 16:30; Stop 08/07/17 at 16:31; Status DC Zolpidem Tartrate (Ambien) 10 mg HS PRN PO INSOMNIA Last administered on 21:58; Start 08/08/17 at 11:00 Iohexol (Omnipaque 350 Inj) 72 ml STK-MED ONCE IVCONTRAST Last administered on 08/08/17 11:23; Start 08/08/17 at 11:23; Stop 08/08/17 at 11:30; Status DC Trimethoprim/ Sulfamethoxazole (Bactrim Ds 800-160 Mg) 1 tab Q12HR PO Last administered on 08/14/17 09:05; Start 08/11/17 at 10:15 Guaifenesin (Robitussin Liq) 200 mg Q6HR PRN PO COUGH Last administered on 06:47; Start 08/12/17 at 09:00 A/P Problem List: (1) Thrombocytopenia ICD Code: D69.6 - Thrombocytopenia, unspecified (2) Polycythemia ICD Code: D75.1 - Secondary polycythemia (3) CVA (cerebral vascular accident) ICD Code: I63.9 - Cerebral infarction, unspecified (4) Stroke ICD Code: I63.9 - Cerebral infarction, unspecified Status: Acute (5) Incontinence ICD Code: R32 - Unspecified urinary incontinence (6) Cystitis ICD Code: N30.90 - Cystitis, unspecified without hematuria Assessment and Plan A/P CVA , with expressive aphasia and right hemiparesis, dysphagia. Continue with aspirin LDL 36 therefore statin is not indicated PT/OT/speech therapy Appreciate input from neurology Continue current treatment Possible aspiration pneumonia-treated. s/p Augmentin 07/16/17 Hyperammonemia-resolved Continue lactulose daily Monitor ammonia level as needed. Acute hypoxemic respiratory failure Resolved Continue with DuoNeb when necessary and maintain oxygen saturation above 92% Hypertension Cardiomyopathy 2-D echo revealed LVEF of 45%. Continue beta marilou. PRN antihypertensives Appreciate input from cardiology who signed off Dysphagia-improving. PEG has been removed. diet per ST. drainage from the site of PEG/ low grade fever- no recurrent fever and abdominal pain has resolved. CT of the abdomen as noted above. continue Bactrim; fluid for the culture; pending. previously d/w GI . f/u with GI as outpatient. History of chronic of chronic benzodiazepine use Advised on cessation Upper GI and rectal bleed Elevated transaminases Hepatitis C antibody positive Currently on Protonix Appreciate input from GI who signed off s/p EGD with gastritis and esophagitis. HIDA scan 06/28 with distended gallbladder-no evidence of acute cholecystitis s/p PEG placement / removal History of incontinence Resolved Acute kidney injury Resolved Thrombocytopenia resolved. insomnia; ambien as needed. cough; antitussives as needed. Prophylaxis - GI - PO Protonix - DVT - SCD/heparin subcutaneous on hold due to GI bleed. Discharge Planning awaiting placement- pending SSI. Problem Qualifiers (1) CVA (cerebral vascular accident): Qualified Codes: I63.9 - Cerebral infarction, unspecified (2) Stroke: Qualified Codes: I63.9 - Cerebral infarction, unspecified (3) Incontinence: Qualified Codes: R32 - Unspecified urinary incontinence Madhu Villaseñor MD Aug 14, 2017 09:35
[2017-08-14 11:27] VITALS: BP 110/75; PULSE 84; RESP 20; TEMP 98.2; O2SAT 95
[2017-08-14 16:27] VITALS: BP 99/72; PULSE 83; RESP 20; TEMP 98.4; O2SAT 96
[2017-08-14 20:00] VITALS: BP 110/64; PULSE 77; RESP 19; TEMP 98.2; O2SAT 95
[2017-08-14] MEDS: ZOLPIDEM TARTRATE 5 MG TAB PO PRN ×2 (22:29)
[2017-08-15 00:30] VITALS: BP 102/69; PULSE 86; RESP 18; TEMP 98.2; O2SAT 92
[2017-08-15] MEDS: oxyCODONE/ACETAMINOPHEN 7.5 MG/325 MG TAB PO PRN ×12 (02:53→22:45)
[2017-08-15 04:00] VITALS: BP 108/69; PULSE 87; RESP 18; TEMP 98.1; O2SAT 92
[2017-08-15] MEDS: METOPROLOL TARTRATE 25 MG TAB PO SCH ×6 (06:00→20:36)
[2017-08-15] MEDS: guaiFENesin SOLUTION 200 MG/10 ML CUP PO PRN ×4 (06:26→20:31)
[2017-08-15 07:57] VITALS: BP 106/69; PULSE 92; RESP 20; TEMP 97.5; O2SAT 95
[2017-08-15] MEDS: RIFAXIMIN 550 MG TAB PO SCH ×4 (09:19→20:31)
[2017-08-15] MEDS: SULFAMETHOXAZOLE-TRIMETHOPRIM DS 800-160 MG TAB PO SCH ×4 (09:19→20:31)
[2017-08-15] MEDS: LISINOPRIL 10 MG TAB PO SCH ×2 (09:19)
[2017-08-15] MEDS: PANTOPRAZOLE SOD 40 MG DELAYED RELEASE TAB PO SCH ×4 (09:20→20:31)
[2017-08-15] MEDS: SODIUM CHLORIDE 0.9% FLUSH 10 ML FLUSH IV FLUSH SCH ×4 (09:20→20:32)
[2017-08-15] MEDS: LACTOBACILLUS ACIDOPHILUS 1 GM PACKET PO SCH ×4 (09:20→20:35)
[2017-08-15] MEDS: ARTIFICIAL TEARS OPTH SOLN 15 ML BTL EACH EYE SCH ×4 (09:20→13:10)
[2017-08-15] MEDS: LACTULOSE SYRUP 20 GM/30 ML CUP PO SCH ×2 (09:20)
[2017-08-15] MEDS: ASPIRIN 81 MG CHEW TAB PO SCH ×2 (09:20)
[2017-08-15 11:56] VITALS: BP 112/74; PULSE 88; RESP 20; TEMP 98; O2SAT 96
--- NOTE | 2017-08-15 13:35 | HHI.PR ---
Subjective Remarks patient up on chair very interactive- with mild expressive aphasia good po up and ambulating around -"10 x" supportive best friend in the room- helping us with paper works/applications Objective Vitals Vital Signs Date Time Temp Pulse Resp B/P (MAP) Pulse Ox O2 Delivery O2 Flow Rate FiO2 08/15/17 11:56 98.0 88 20 112/74 (87) 96 08/15/17 07:57 97.5 92 20 106/69 (81) 95 08/15/17 04:00 98.1 87 18 108/69 (82) 92 08/15/17 00:30 98.2 86 18 102/69 (80) 92 08/14/17 20:00 98.2 77 19 110/64 (79) 95 08/14/17 16:27 98.4 83 20 99/72 (81) 96 I/O 08/14/17 08/14/17 08/14/17 08/15/17 08/15/17 08/15/17 07:00 15:00 23:00 07:00 15:00 23:00 Intake Total 720 ml Balance 720 ml Intake Oral 720 ml # Voids 1 6 2 2 # Bowel Movements 0 0 0 Imaging Last Impressions Abdomen/Pelvis CT 08/08/17 0000 Signed Impressions: Service Date/Time: Tuesday, August 08, 2017 11:16 - CONCLUSION: PEG tube site remains patent from stomach to the anterior abdominal wall with induration in the rectus. Patchy airspace disease in both lungs. Rudy Meng MD FACR Abdomen X-Ray 08/06/17 0000 Signed Impressions: Service Date/Time: Sunday, August 06, 2017 00:36 - CONCLUSION: PEG tube overlying the left lower abdomen. Christopher Sarmiento MD Modified Barium Swallow 07/19/17 0000 Signed Impressions: Service Date/Time: Wednesday, July 19, 2017 00:00 - CONCLUSION: Penetration and aspiration as above within liquids, penetration with nectar thick consistency. Jude rBaxton MD Chest X-Ray 07/09/17 0000 Signed Impressions: Service Date/Time: Sunday, July 09, 2017 14:04 - CONCLUSION: 1. Stable mild central bibasilar patchy airspace disease. 2. No significant interval change. Gustavo Santoro MD Head CT 07/06/17 0000 Signed Impressions: Service Date/Time: Thursday, July 06, 2017 09:07 - CONCLUSION: 1. 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 2. Mucous retention cyst within left maxillary and right sphenoid sinuses. Juan Pablo Huffman MD Hepatobiliary Scan Nuclear Medicine 06/28/17 0900 Signed Impressions: Service Date/Time: Wednesday, June 28, 2017 10:17 - CONCLUSION: Nonspecific persistent distention of the gallbladder. No evidence of acute cholecystitis or biliary obstruction. Christopher Gutierrez MD Lung Scan-VQ Nuclear Medicine 06/24/17 0000 Signed Impressions: Service Date/Time: Saturday, June 24, 2017 12:21 - CONCLUSION: 1. Low probability of pulmonary embolism Jose Richard MD Head Magnetic Resonance Angiography 06/24/17 0000 Signed Impressions: Service Date/Time: Saturday, June 24, 2017 13:37 - CONCLUSION: Negative for major branch vessels obstruction in spite of MRI findings. Rudy Meng MD FACR Brain MRI 06/24/17 0000 Signed Impressions: Service Date/Time: Saturday, June 24, 2017 13:37 - CONCLUSION: Findings consistent with acute infarct left sylvian region anteriorly without hemorrhage. Rudy Meng MD FACR Carotid Artery Ultrasound 06/22/17 0000 Signed Impressions: Service Date/Time: Thursday, June 22, 2017 15:56 - CONCLUSION: No evidence of flow-limiting carotid stenosis. Christopher Leonardo MD Abdomen Ultrasound 06/22/17 0000 Signed Impressions: Service Date/Time: Thursday, June 22, 2017 16:30 - CONCLUSION: Distended gallbladder with wall thickening and internal debris. Mild calyceal dilatation involving the kidneys bilaterally Christopher Leonardo MD Objective Remarks awake and alert anicteric lungs- no rales or wheezes regular rhythm abdomen soft, nontender, minimal drainage from Previous PEG site extremities no edema neuro exam- non focal Procedures PEG tube insertion. A/P Problem List: (1) Thrombocytopenia ICD Code: D69.6 - Thrombocytopenia, unspecified (2) Polycythemia ICD Code: D75.1 - Secondary polycythemia (3) CVA (cerebral vascular accident) ICD Code: I63.9 - Cerebral infarction, unspecified (4) Stroke ICD Code: I63.9 - Cerebral infarction, unspecified Status: Acute (5) Incontinence ICD Code: R32 - Unspecified urinary incontinence (6) Cystitis ICD Code: N30.90 - Cystitis, unspecified without hematuria Assessment and Plan CVA , with expressive aphasia and mild right hemiparesis, dysphagia. Continue with aspirin LDL 36 therefore statin is not indicated PT/OT/speech therapy Appreciate input from neurology Continue current treatment S/P aspiration pneumonia-treated. s/p Augmentin 07/16/17 Hyperammonemia-resolved Continue lactulose daily Monitor ammonia level as needed. Acute hypoxemic respiratory failure Resolved Continue with DuoNeb when necessary and maintain oxygen saturation above 92% Hypertension Cardiomyopathy 2-D echo revealed LVEF of 45%. Continue beta marilou. PRN antihypertensives Appreciate input from cardiology who signed off Dysphagia-improving.- good po PEG has been removed. diet per ST. drainage from the site of PEG/ low grade fever- t down no recurrent fever and abdominal pain has resolved. CT of the abdomen as noted above. continue Bactrim; - fluid for the culture; - growing gram negative with some yeasts- ff final results previously d/w GI . f/u with GI as outpatient. History of chronic of chronic benzodiazepine use Advised on cessation Upper GI and rectal bleed Elevated transaminases Hepatitis C antibody positive Currently on Protonix Appreciate input from GI who signed off s/p EGD with gastritis and esophagitis. HIDA scan 06/28 with distended gallbladder-no evidence of acute cholecystitis s/p PEG placement / removal History of incontinence Resolved Acute kidney injury Resolved Thrombocytopenia resolved. insomnia; ambien as needed. cough; antitussives as needed. Prophylaxis - GI - PO Protonix - DVT - SCD/heparin subcutaneous on hold due to GI bleed. Problem Qualifiers (1) CVA (cerebral vascular accident): Qualified Codes: I63.9 - Cerebral infarction, unspecified (2) Stroke: Qualified Codes: I63.9 - Cerebral infarction, unspecified (3) Incontinence: Qualified Codes: R32 - Unspecified urinary incontinence Sara Greene MD Aug 15, 2017 13:35
[2017-08-15 16:20] VITALS: BP 123/73; PULSE 91; RESP 20; TEMP 98.1; O2SAT 97
[2017-08-15 21:07] VITALS: BP 114/72; PULSE 85; RESP 20; TEMP 97.9; O2SAT 95
[2017-08-15] MEDS: ZOLPIDEM TARTRATE 5 MG TAB PO PRN ×2 (22:45)
[2017-08-16 00:53] VITALS: BP 116/60; PULSE 69; RESP 20; TEMP 97.2; O2SAT 96
[2017-08-16] MEDS: oxyCODONE/ACETAMINOPHEN 7.5 MG/325 MG TAB PO PRN ×10 (03:38→20:23)
[2017-08-16] MEDS: CHLORHEXIDINE GLUCONATE 2 % 1 PACK (2 CLOTHS) TOP SCH ×2 (03:40)
[2017-08-16 04:57] VITALS: BP 107/71; PULSE 80; RESP 20; TEMP 97.9; O2SAT 96
[2017-08-16] MEDS: METOPROLOL TARTRATE 25 MG TAB PO SCH ×6 (05:28→22:23)
[2017-08-16] MEDS: LACTULOSE SYRUP 20 GM/30 ML CUP PO SCH ×2 (08:08)
[2017-08-16] MEDS: LISINOPRIL 10 MG TAB PO SCH ×2 (08:08)
[2017-08-16] MEDS: ASPIRIN 81 MG CHEW TAB PO SCH ×2 (08:09)
[2017-08-16] MEDS: PANTOPRAZOLE SOD 40 MG DELAYED RELEASE TAB PO SCH ×4 (08:09→22:24)
[2017-08-16] MEDS: RIFAXIMIN 550 MG TAB PO SCH ×4 (08:09→22:24)
[2017-08-16] MEDS: SULFAMETHOXAZOLE-TRIMETHOPRIM DS 800-160 MG TAB PO SCH ×4 (08:09→22:23)
[2017-08-16 08:34] VITALS: BP 105/70; PULSE 74; RESP 20; TEMP 98.1; O2SAT 94
[2017-08-16] MEDS: SODIUM CHLORIDE 0.9% FLUSH 10 ML FLUSH IV FLUSH SCH ×4 (09:00→22:25)
[2017-08-16] MEDS: guaiFENesin SOLUTION 200 MG/10 ML CUP PO PRN ×4 (10:13→23:22)
[2017-08-16] MEDS: LACTOBACILLUS ACIDOPHILUS 1 GM PACKET PO SCH ×4 (10:13→22:24)
--- NOTE | 2017-08-16 12:06 | RADRPT ---
EXAM DATE/TIME: 08/16/2017 00:00 [facility] COMPARISON: BA SWALLOW W/SPEECH PATHOLOGY, July 19, 2017, 0:00. INDICATIONS : Dysphagia, aspiration FLUORO TIME: 3.1 minutes IMAGE COUNT: 0 CONTRAST: Dose as prescribed by speech pathologist. MEDICAL HISTORY : Stroke. SURGICAL HISTORY : None. ENCOUNTER: Subsequent ACUITY: 3 months PAIN SCORE: 0/10 LOCATION: Bilateral esophagus FINDINGS: A modified barium swallow was performed with speech pathology. Patient was given a variety of liquids to swallow. No episodes of aspiration observed. For a full detailed report, see report by the speech pathologist. CONCLUSION: Modified barium swallow performed with speech pathology. Karel Ghosh MD on August 16, 2017 at 12:04 Board Certified Radiologist. This report was verified electronically.
[2017-08-16 13:12] VITALS: BP 97/61; PULSE 88; RESP 20; TEMP 98.3; O2SAT 97
--- NOTE | 2017-08-16 13:44 | HHI.PR ---
Subjective Remarks no complains expressive aphasia- slightly improving no pain Objective Vitals Vital Signs Date Time Temp Pulse Resp B/P (MAP) Pulse Ox O2 Delivery O2 Flow Rate FiO2 08/16/17 13:12 98.3 88 20 97/61 (73) 97 08/16/17 08:34 98.1 74 20 105/70 (82) 94 08/16/17 04:57 97.9 80 20 107/71 (83) 96 08/16/17 00:53 97.2 69 20 116/60 (78) 96 08/15/17 21:07 97.9 85 20 114/72 (86) 95 08/15/17 16:20 98.1 91 20 123/73 (90) 97 I/O 08/15/17 08/15/17 08/15/17 08/16/17 08/16/17 08/16/17 07:00 15:00 23:00 07:00 15:00 23:00 Intake Total 1020 ml Balance 1020 ml Intake Oral 1020 ml # Voids 2 4 2 # Bowel Movements 0 Imaging Last Impressions Modified Barium Swallow 08/16/17 0000 Signed Impressions: Service Date/Time: Wednesday, August 16, 2017 00:00 - CONCLUSION: Modified barium swallow performed with speech pathology. Karel Ghosh MD Abdomen/Pelvis CT 08/08/17 0000 Signed Impressions: Service Date/Time: Tuesday, August 08, 2017 11:16 - CONCLUSION: PEG tube site remains patent from stomach to the anterior abdominal wall with induration in the rectus. Patchy airspace disease in both lungs. Rudy Meng MD FACR Abdomen X-Ray 08/06/17 0000 Signed Impressions: Service Date/Time: Sunday, August 06, 2017 00:36 - CONCLUSION: PEG tube overlying the left lower abdomen. Christopher Sarmiento MD Chest X-Ray 07/09/17 0000 Signed Impressions: Service Date/Time: Sunday, July 09, 2017 14:04 - CONCLUSION: 1. Stable mild central bibasilar patchy airspace disease. 2. No significant interval change. Gustavo Santoro MD Head CT 07/06/17 0000 Signed Impressions: Service Date/Time: Thursday, July 06, 2017 09:07 - CONCLUSION: 1. 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 2. Mucous retention cyst within left maxillary and right sphenoid sinuses. Juan Pablo Huffman MD Hepatobiliary Scan Nuclear Medicine 06/28/17 0900 Signed Impressions: Service Date/Time: Wednesday, June 28, 2017 10:17 - CONCLUSION: Nonspecific persistent distention of the gallbladder. No evidence of acute cholecystitis or biliary obstruction. Christopher Gutierrez MD Lung Scan-VQ Nuclear Medicine 06/24/17 0000 Signed Impressions: Service Date/Time: Saturday, June 24, 2017 12:21 - CONCLUSION: 1. Low probability of pulmonary embolism Jose Richard MD Head Magnetic Resonance Angiography 06/24/17 0000 Signed Impressions: Service Date/Time: Saturday, June 24, 2017 13:37 - CONCLUSION: Negative for major branch vessels obstruction in spite of MRI findings. Rudy Meng MD FACR Brain MRI 06/24/17 0000 Signed Impressions: Service Date/Time: Saturday, June 24, 2017 13:37 - CONCLUSION: Findings consistent with acute infarct left sylvian region anteriorly without hemorrhage. Rudy Meng MD FACR Carotid Artery Ultrasound 06/22/17 0000 Signed Impressions: Service Date/Time: Thursday, June 22, 2017 15:56 - CONCLUSION: No evidence of flow-limiting carotid stenosis. Christopher Leonardo MD Abdomen Ultrasound 06/22/17 0000 Signed Impressions: Service Date/Time: Thursday, June 22, 2017 16:30 - CONCLUSION: Distended gallbladder with wall thickening and internal debris. Mild calyceal dilatation involving the kidneys bilaterally Christopher Leonardo MD Objective Remarks awake and alert, trying to express more anicteric lungs- no rales or wheezes regular rhythm abdomen soft, nontender, some minimal clear drainage from Previous PEG site, no foul odor- minimal mucosal herniation extremities no edema neuro exam- non focal Procedures PEG tube insertion. A/P Problem List: (1) Thrombocytopenia ICD Code: D69.6 - Thrombocytopenia, unspecified (2) Polycythemia ICD Code: D75.1 - Secondary polycythemia (3) CVA (cerebral vascular accident) ICD Code: I63.9 - Cerebral infarction, unspecified (4) Stroke ICD Code: I63.9 - Cerebral infarction, unspecified Status: Acute (5) Incontinence ICD Code: R32 - Unspecified urinary incontinence (6) Cystitis ICD Code: N30.90 - Cystitis, unspecified without hematuria Assessment and Plan CVA , with expressive aphasia and mild right hemiparesis, dysphagia. Continue with aspirin LDL 36 therefore statin is not indicated PT/OT/speech therapy Appreciate input from neurology Continue current treatment S/P aspiration pneumonia-treated. s/p Augmentin 07/16/17 Hyperammonemia-resolved Continue lactulose daily Monitor ammonia level as needed. Acute hypoxemic respiratory failure Resolved Continue with DuoNeb when necessary and maintain oxygen saturation above 92% Hypertension Cardiomyopathy 2-D echo revealed LVEF of 45%. Continue beta marilou/neeraj. BPs reviewed will decrease BB dose Appreciate input from cardiology who signed off Dysphagia-improving.- good po PEG has been removed. diet per ST. PEG infection / low grade fever- t down- no foul odor no recurrent fever and abdominal pain has resolved. CT of the abdomen as noted above. continue Bactrim; - culture; - growing Pseudominas/yeasts wound care nurse consult f/u with GI as outpatient. History of chronic of chronic benzodiazepine use Advised on cessation Upper GI and rectal bleed Elevated transaminases Hepatitis C antibody positive Currently on Protonix Appreciate input from GI who signed off s/p EGD with gastritis and esophagitis. HIDA scan 06/28 with distended gallbladder-no evidence of acute cholecystitis s/p PEG placement / removal History of incontinence Resolved Acute kidney injury Resolved Thrombocytopenia resolved. insomnia; ambien as needed. cough; antitussives as needed. Prophylaxis - GI - PO Protonix - DVT - SCD/heparin subcutaneous on hold due to GI bleed. Problem Qualifiers (1) CVA (cerebral vascular accident): Qualified Codes: I63.9 - Cerebral infarction, unspecified (2) Stroke: Qualified Codes: I63.9 - Cerebral infarction, unspecified (3) Incontinence: Qualified Codes: R32 - Unspecified urinary incontinence Sara Greene MD Aug 16, 2017 13:44
[2017-08-16] MEDS: NEOMYCIN/POLYMYXIN/BACITRACIN OINT 0.9 GM PACKET TOPICAL SCH ×4 (15:00→23:23)
--- NOTE | 2017-08-16 16:39 | PD.WCN.NOT ---
Wound Consult Description: Received consult for wound management of previous PEG site from Doctor Greene. Communicated with: IVANA Yoon [address] [place] [address] and Doctor Greene for orders Recommendation: Please cleanse wound Abdomen with normal saline and pat dry. Apply skin prep to periwound before applying optifoam gentle adhesive foam 4x4 dressing. Change dressing every 2 days or PRN if saturated or dislodged Additional Information: Patient seen on for evaluation of previous PEG site wound management. Removed bordered gauze in place to reveal wound. Wound presents as 0.5cm x 0.5cm of hypergranulated tissue. Wound has minimal sero-sanguinous drainage with out odor. Periwound is unremarkable. Cleansed wound with normal saline and pat dry. Applied skin prep to periwound before applying bacitracin as ordered. Applied adhesive foam dressing in place. Jessie Rios [facility] Aug 16, 2017 16:39
--- NOTE | 2017-08-16 16:39 | PD.WCN.NOT ---
Wound Consult Description: Received consult for wound management of previous PEG site from Doctor Greene. Communicated with: IVANA Yoon [address] [place] [address] and Doctor Greene for orders Recommendation: Please cleanse wound Abdomen with normal saline and pat dry. Apply skin prep to periwound before applying optifoam gentle adhesive foam 4x4 dressing. Change dressing every 2 days or PRN if saturated or dislodged Additional Information: Patient seen on for evaluation of previous PEG site wound management. Removed bordered gauze in place to reveal wound. Wound presents as 0.5cm x 0.5cm of hypergranulated tissue. Wound has minimal sero-sanguinous drainage with out odor. Periwound is unremarkable. Cleansed wound with normal saline and pat dry. Applied skin prep to periwound before applying bacitracin as ordered. Applied adhesive foam dressing in place. [facility] Aug 16, 2017 16:39
--- NOTE | 2017-08-16 16:39 | PD.WCN.NOT ---
Wound Consult Description: Received consult for wound management of previous PEG site from Doctor Greene. Communicated with: IVANA Yoon [address] [place] [address] and Doctor Greene for orders Recommendation: Please cleanse wound Abdomen with normal saline and pat dry. Apply skin prep to periwound before applying optifoam gentle adhesive foam 4x4 dressing. Change dressing every 2 days or PRN if saturated or dislodged Additional Information: Patient seen on for evaluation of previous PEG site wound management. Removed bordered gauze in place to reveal wound. Wound presents as 0.5cm x 0.5cm of hypergranulated tissue. Wound has minimal sero-sanguinous drainage with out odor. Periwound is unremarkable. Cleansed wound with normal saline and pat dry. Applied skin prep to periwound before applying bacitracin as ordered. Applied adhesive foam dressing in place. Jessie Rios [facility] Aug 16, 2017 16:39
[2017-08-16 17:31] VITALS: BP 92/66; PULSE 69; RESP 20; TEMP 97.6; O2SAT 97
[2017-08-16 20:00] VITALS: BP 94/62; PULSE 66; RESP 20; TEMP 97.9; O2SAT 97
[2017-08-16] MEDS: ZOLPIDEM TARTRATE 5 MG TAB PO PRN ×2 (22:22)
[2017-08-17] MEDS: oxyCODONE/ACETAMINOPHEN 7.5 MG/325 MG TAB PO PRN ×8 (00:31→08:45)
[2017-08-17 04:00] VITALS: BP 89/55; PULSE 69; RESP 20; TEMP 97.4; O2SAT 93
[2017-08-17] MEDS: CHLORHEXIDINE GLUCONATE 2 % 1 PACK (2 CLOTHS) TOP SCH ×2 (04:00)
[2017-08-17] MEDS: guaiFENesin SOLUTION 200 MG/10 ML CUP PO PRN ×2 (04:34)
[2017-08-17] MEDS: METOPROLOL TARTRATE 25 MG TAB PO SCH ×4 (06:00→20:17)
[2017-08-17 08:00] VITALS: BP 92/57; PULSE 68; RESP 18; TEMP 98.6; O2SAT 93
[2017-08-17] MEDS: RIFAXIMIN 550 MG TAB PO SCH ×4 (08:43→20:17)
[2017-08-17] MEDS: LACTOBACILLUS ACIDOPHILUS 1 GM PACKET PO SCH ×4 (08:43→20:18)
[2017-08-17] MEDS: PANTOPRAZOLE SOD 40 MG DELAYED RELEASE TAB PO SCH ×4 (08:43→20:17)
[2017-08-17] MEDS: ASPIRIN 81 MG CHEW TAB PO SCH ×2 (08:43)
[2017-08-17] MEDS: LACTULOSE SYRUP 20 GM/30 ML CUP PO SCH ×2 (08:43)
[2017-08-17] MEDS: LISINOPRIL 10 MG TAB PO SCH ×2 (08:43)
[2017-08-17] MEDS: SULFAMETHOXAZOLE-TRIMETHOPRIM DS 800-160 MG TAB PO SCH ×4 (08:43→20:15)
[2017-08-17] MEDS: SODIUM CHLORIDE 0.9% FLUSH 10 ML FLUSH IV FLUSH SCH ×4 (09:00→20:19)
--- NOTE | 2017-08-17 11:25 | HHI.PR ---
Subjective Remarks no complains, independent taking shower ambulatory speeech improving- Objective Vitals Vital Signs Date Time Temp Pulse Resp B/P (MAP) Pulse Ox O2 Delivery O2 Flow Rate FiO2 08/17/17 08:00 98.6 68 18 92/57 (69) 93 08/17/17 04:00 97.4 69 20 89/55 (66) 93 08/16/17 20:00 97.9 66 20 94/62 (73) 97 08/16/17 17:31 97.6 69 20 92/66 (75) 97 08/16/17 13:12 98.3 88 20 97/61 (73) 97 I/O 08/16/17 08/16/17 08/16/17 08/17/17 08/17/17 08/17/17 07:00 15:00 23:00 07:00 15:00 23:00 Intake Total 1300 ml Balance 1300 ml Intake Oral 1300 ml # Voids 2 6 1 Imaging Last Impressions Modified Barium Swallow 08/16/17 0000 Signed Impressions: Service Date/Time: Wednesday, August 16, 2017 00:00 - CONCLUSION: Modified barium swallow performed with speech pathology. Karel Ghosh MD Abdomen/Pelvis CT 08/08/17 0000 Signed Impressions: Service Date/Time: Tuesday, August 08, 2017 11:16 - CONCLUSION: PEG tube site remains patent from stomach to the anterior abdominal wall with induration in the rectus. Patchy airspace disease in both lungs. Rudy Meng MD FACR Abdomen X-Ray 08/06/17 0000 Signed Impressions: Service Date/Time: Sunday, August 06, 2017 00:36 - CONCLUSION: PEG tube overlying the left lower abdomen. Christopher Sarmiento MD Chest X-Ray 07/09/17 0000 Signed Impressions: Service Date/Time: Sunday, July 09, 2017 14:04 - CONCLUSION: 1. Stable mild central bibasilar patchy airspace disease. 2. No significant interval change. Gustavo Santoro MD Head CT 07/06/17 0000 Signed Impressions: Service Date/Time: Thursday, July 06, 2017 09:07 - CONCLUSION: 1. 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 2. Mucous retention cyst within left maxillary and right sphenoid sinuses. Juan Pablo Huffman MD Hepatobiliary Scan Nuclear Medicine 06/28/17 0900 Signed Impressions: Service Date/Time: Wednesday, June 28, 2017 10:17 - CONCLUSION: Nonspecific persistent distention of the gallbladder. No evidence of acute cholecystitis or biliary obstruction. Christopher Gutierrez MD Lung Scan-VQ Nuclear Medicine 06/24/17 0000 Signed Impressions: Service Date/Time: Saturday, June 24, 2017 12:21 - CONCLUSION: 1. Low probability of pulmonary embolism Jose Richard MD Head Magnetic Resonance Angiography 06/24/17 0000 Signed Impressions: Service Date/Time: Saturday, June 24, 2017 13:37 - CONCLUSION: Negative for major branch vessels obstruction in spite of MRI findings. Rudy Meng MD FACR Brain MRI 06/24/17 0000 Signed Impressions: Service Date/Time: Saturday, June 24, 2017 13:37 - CONCLUSION: Findings consistent with acute infarct left sylvian region anteriorly without hemorrhage. Rudy Meng MD FACR Carotid Artery Ultrasound 06/22/17 0000 Signed Impressions: Service Date/Time: Thursday, June 22, 2017 15:56 - CONCLUSION: No evidence of flow-limiting carotid stenosis. Christopher Leonardo MD Abdomen Ultrasound 06/22/17 0000 Signed Impressions: Service Date/Time: Thursday, June 22, 2017 16:30 - CONCLUSION: Distended gallbladder with wall thickening and internal debris. Mild calyceal dilatation involving the kidneys bilaterally Christopher Leonardo MD Objective Remarks awake and alert, mild expressive aphasia anicteric lungs- no rales or wheezes regular rhythm abdomen soft, nontender, some minimal clear drainage from Previous PEG site, no foul odor- minimal mucosal herniation extremities no edema neuro exam- non focal Procedures PEG tube insertion. A/P Problem List: (1) Thrombocytopenia ICD Code: D69.6 - Thrombocytopenia, unspecified (2) Polycythemia ICD Code: D75.1 - Secondary polycythemia (3) CVA (cerebral vascular accident) ICD Code: I63.9 - Cerebral infarction, unspecified (4) Stroke ICD Code: I63.9 - Cerebral infarction, unspecified Status: Acute (5) Incontinence ICD Code: R32 - Unspecified urinary incontinence (6) Cystitis ICD Code: N30.90 - Cystitis, unspecified without hematuria Assessment and Plan CVA , with expressive aphasia and mild right hemiparesis, dysartrhia, mild dysphagia Continue with aspirin LDL 36 therefore statin is not indicated PT/OT/speech therapy Appreciate input from neurology Continue current treatment S/P aspiration pneumonia-treated. s/p Augmentin 07/16/17 Hyperammonemia-resolved Continue lactulose daily Monitor ammonia level as needed. Acute hypoxemic respiratory failure Resolved Continue with DuoNeb when necessary and maintain oxygen saturation above 92% Hypertension Cardiomyopathy 2-D echo revealed LVEF of 45%. Continue beta marilou/neeraj. on BB dose Appreciate input from cardiology who signed off Dysphagia-improving.- good po PEG has been removed. diet per ST. PEG infection- improving no recurrent fever and abdominal pain has resolved. CT of the abdomen as noted above. continue Bactrim; - culture; - growing Pseudominas/yeasts wound care nurse consult f/u with GI as outpatient. History of chronic of chronic benzodiazepine use Advised on cessation Upper GI and rectal bleed Elevated transaminases Hepatitis C antibody positive Currently on Protonix Appreciate input from GI who signed off s/p EGD with gastritis and esophagitis. HIDA scan 06/28 with distended gallbladder-no evidence of acute cholecystitis s/p PEG placement / removal History of incontinence Resolved Acute kidney injury Resolved Thrombocytopenia resolved. insomnia; ambien as needed. Prophylaxis - GI - PO Protonix - DVT - SCD/heparin subcutaneous on hold due to GI bleed.- patient up anfd ambulating- idnependent CM- ready for DC if safe disposition Problem Qualifiers (1) CVA (cerebral vascular accident): Qualified Codes: I63.9 - Cerebral infarction, unspecified (2) Stroke: Qualified Codes: I63.9 - Cerebral infarction, unspecified (3) Incontinence: Qualified Codes: R32 - Unspecified urinary incontinence Sara Greene MD Aug 17, 2017 11:25
[2017-08-17] MEDS ORDERED: oxyCODONE/ACETAMINOPHEN 7.5 MG/325 MG TAB PO PRN ×4 (11:30→14:00)
--- NOTE | 2017-08-17 11:48 | HHI.PR ---
Subjective Remarks ambulated well no complains very motivated /wantig to speak more Objective Vitals Vital Signs Date Time Temp Pulse Resp B/P (MAP) Pulse Ox O2 Delivery O2 Flow Rate FiO2 08/17/17 08:00 98.6 68 18 92/57 (69) 93 08/17/17 04:00 97.4 69 20 89/55 (66) 93 08/16/17 20:00 97.9 66 20 94/62 (73) 97 08/16/17 17:31 97.6 69 20 92/66 (75) 97 08/16/17 13:12 98.3 88 20 97/61 (73) 97 I/O 08/16/17 08/16/17 08/16/17 08/17/17 08/17/17 08/17/17 07:00 15:00 23:00 07:00 15:00 23:00 Intake Total 1300 ml Balance 1300 ml Intake Oral 1300 ml # Voids 2 6 1 Imaging Last Impressions Modified Barium Swallow 08/16/17 0000 Signed Impressions: Service Date/Time: Wednesday, August 16, 2017 00:00 - CONCLUSION: Modified barium swallow performed with speech pathology. Karel Ghosh MD Abdomen/Pelvis CT 08/08/17 0000 Signed Impressions: Service Date/Time: Tuesday, August 08, 2017 11:16 - CONCLUSION: PEG tube site remains patent from stomach to the anterior abdominal wall with induration in the rectus. Patchy airspace disease in both lungs. Rudy Meng MD FACR Abdomen X-Ray 08/06/17 0000 Signed Impressions: Service Date/Time: Sunday, August 06, 2017 00:36 - CONCLUSION: PEG tube overlying the left lower abdomen. Christopher Sarmiento MD Chest X-Ray 07/09/17 0000 Signed Impressions: Service Date/Time: Sunday, July 09, 2017 14:04 - CONCLUSION: 1. Stable mild central bibasilar patchy airspace disease. 2. No significant interval change. Gustavo Santoro MD Head CT 07/06/17 0000 Signed Impressions: Service Date/Time: Thursday, July 06, 2017 09:07 - CONCLUSION: 1. 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 2. Mucous retention cyst within left maxillary and right sphenoid sinuses. Juan Pablo Huffman MD Hepatobiliary Scan Nuclear Medicine 06/28/17 0900 Signed Impressions: Service Date/Time: Wednesday, June 28, 2017 10:17 - CONCLUSION: Nonspecific persistent distention of the gallbladder. No evidence of acute cholecystitis or biliary obstruction. Christopher Gutierrez MD Lung Scan-VQ Nuclear Medicine 06/24/17 0000 Signed Impressions: Service Date/Time: Saturday, June 24, 2017 12:21 - CONCLUSION: 1. Low probability of pulmonary embolism Jose Richard MD Head Magnetic Resonance Angiography 06/24/17 0000 Signed Impressions: Service Date/Time: Saturday, June 24, 2017 13:37 - CONCLUSION: Negative for major branch vessels obstruction in spite of MRI findings. Rudy Meng MD FACR Brain MRI 06/24/17 0000 Signed Impressions: Service Date/Time: Saturday, June 24, 2017 13:37 - CONCLUSION: Findings consistent with acute infarct left sylvian region anteriorly without hemorrhage. Rudy Meng MD FACR Carotid Artery Ultrasound 06/22/17 0000 Signed Impressions: Service Date/Time: Thursday, June 22, 2017 15:56 - CONCLUSION: No evidence of flow-limiting carotid stenosis. Christopher Leonardo MD Abdomen Ultrasound 06/22/17 0000 Signed Impressions: Service Date/Time: Thursday, June 22, 2017 16:30 - CONCLUSION: Distended gallbladder with wall thickening and internal debris. Mild calyceal dilatation involving the kidneys bilaterally Christopher Leonardo MD Objective Remarks awake and alert, mild expressive aphasia anicteric lungs- no rales or wheezes regular rhythm abdomen soft, nontender, PEG site no erythema, mimimal serous fluid, no foul odor- minimal mucosal herniation extremities no edema neuro exam- non focal Procedures PEG tube insertion. A/P Problem List: (1) Thrombocytopenia ICD Code: D69.6 - Thrombocytopenia, unspecified (2) Polycythemia ICD Code: D75.1 - Secondary polycythemia (3) CVA (cerebral vascular accident) ICD Code: I63.9 - Cerebral infarction, unspecified (4) Stroke ICD Code: I63.9 - Cerebral infarction, unspecified Status: Acute (5) Incontinence ICD Code: R32 - Unspecified urinary incontinence (6) Cystitis ICD Code: N30.90 - Cystitis, unspecified without hematuria Assessment and Plan CVA , with expressive aphasia and mild right hemiparesis, dysartrhia, mild dysphagia Continue with aspirin LDL 36 therefore statin is not indicated PT/OT/speech therapy Appreciate input from neurology Continue current treatment S/P aspiration pneumonia-treated. s/p Augmentin 07/16/17 Hyperammonemia-resolved Continue lactulose daily Monitor ammonia level as needed. Acute hypoxemic respiratory failure Resolved Continue with DuoNeb when necessary and maintain oxygen saturation above 92% Hypertension Cardiomyopathy- SBPs in the 80-90s 2-D echo revealed LVEF of 45%. Continue beta marilou/neeraj.- decrease Lopresssor to 12.5 mg po bid- continue lisinopril 10 mg daily Appreciate input from cardiology who signed off Dysphagia-improving.- good po PEG has been removed. diet per ST. PEG infection- improving no recurrent fever and abdominal pain has resolved. CT of the abdomen as noted above. continue Bactrim; - culture; - growing Pseudominas/yeasts wound care nurse consult f/u with GI as outpatient. History of chronic of chronic benzodiazepine use Advised on cessation Upper GI and rectal bleed Elevated transaminases Hepatitis C antibody positive Currently on Protonix Appreciate input from GI who signed off s/p EGD with gastritis and esophagitis. HIDA scan 06/28 with distended gallbladder-no evidence of acute cholecystitis s/p PEG placement / removal History of incontinence Resolved Acute kidney injury Resolved Thrombocytopenia resolved. insomnia; ambien as needed. History of chronic pain per patient- on chronic pain meds per PCP per patient will continue on Percocet - change to 10/325 mg po q 6 prn this dose was confirmed with PCP- Dr. Moon's office Prophylaxis - GI - PO Protonix - DVT - SCD/heparin subcutaneous on hold due to GI bleed.- patient up anfd ambulating- idnependent CM- ready for DC if safe disposition Problem Qualifiers (1) CVA (cerebral vascular accident): Qualified Codes: I63.9 - Cerebral infarction, unspecified (2) Stroke: Qualified Codes: I63.9 - Cerebral infarction, unspecified (3) Incontinence: Qualified Codes: R32 - Unspecified urinary incontinence Sara Greene MD Aug 17, 2017 11:47
[2017-08-17 12:00] VITALS: BP_SYST 83; BP_SYST 86; BP_DIAS 52; BP_DIAS 53; PULSE 71; RESP 18; TEMP 97.5; O2SAT 97
[2017-08-17] MEDS: oxyCODONE/ACETAMINOPHEN 10 MG/325 MG TAB PO PRN ×4 (15:04→21:33)
[2017-08-17 16:00] VITALS: BP_SYST 85; BP_SYST 88; BP_DIAS 53; PULSE 72; RESP 18; TEMP 98.2; O2SAT 96
[2017-08-17 20:00] VITALS: BP 93/58; PULSE 86; RESP 20; TEMP 97.4; O2SAT 100
[2017-08-17] MEDS: NEOMYCIN/POLYMYXIN/BACITRACIN OINT 0.9 GM PACKET TOPICAL SCH ×2 (21:00)
[2017-08-17] MEDS: ZOLPIDEM TARTRATE 5 MG TAB PO PRN ×2 (21:33)
[2017-08-18] MEDS: oxyCODONE/ACETAMINOPHEN 10 MG/325 MG TAB PO PRN ×8 (03:24→22:05)
[2017-08-18] MEDS: CHLORHEXIDINE GLUCONATE 2 % 1 PACK (2 CLOTHS) TOP SCH ×2 (04:00)
[2017-08-18 08:38] VITALS: BP 96/58; PULSE 75; RESP 16; TEMP 97.3; O2SAT 94
[2017-08-18] MEDS: LACTOBACILLUS ACIDOPHILUS 1 GM PACKET PO SCH ×4 (09:00→22:05)
[2017-08-18] MEDS: NEOMYCIN/POLYMYXIN/BACITRACIN OINT 0.9 GM PACKET TOPICAL SCH ×4 (09:00→22:03)
[2017-08-18] MEDS: METOPROLOL TARTRATE 25 MG TAB PO SCH ×4 (09:00→22:03)
[2017-08-18] MEDS: LISINOPRIL 10 MG TAB PO SCH ×2 (09:00)
[2017-08-18] MEDS: LACTULOSE SYRUP 20 GM/30 ML CUP PO SCH ×2 (09:49)
[2017-08-18] MEDS: ASPIRIN 81 MG CHEW TAB PO SCH ×2 (09:49)
[2017-08-18] MEDS: SULFAMETHOXAZOLE-TRIMETHOPRIM DS 800-160 MG TAB PO SCH ×4 (09:49→22:05)
[2017-08-18] MEDS: RIFAXIMIN 550 MG TAB PO SCH ×4 (09:50→22:05)
[2017-08-18] MEDS: PANTOPRAZOLE SOD 40 MG DELAYED RELEASE TAB PO SCH ×4 (09:50→22:05)
[2017-08-18] MEDS: SODIUM CHLORIDE 0.9% FLUSH 10 ML FLUSH IV FLUSH SCH ×4 (09:52→21:00)
--- NOTE | 2017-08-18 10:30 | HHI.PR ---
Subjective Remarks awake and alert, no complains + mild dysarthria getting more words out- actually on the phone talking Objective Vitals Vital Signs Date Time Temp Pulse Resp B/P (MAP) Pulse Ox O2 Delivery O2 Flow Rate FiO2 08/18/17 08:38 97.3 75 16 96/58 (71) 94 08/17/17 20:00 97.4 86 20 93/58 (70) 100 08/17/17 16:00 98.2 72 18 85/53 (64) 96 88/53 (65) 08/17/17 12:00 97.5 71 18 83/53 (63) 97 86/52 (63) I/O 08/17/17 08/17/17 08/17/17 08/18/17 08/18/17 08/18/17 07:00 15:00 23:00 07:00 15:00 23:00 Intake Total 240 ml Balance 240 ml Intake Oral 240 ml # Voids 1 1 1 Imaging Last Impressions Modified Barium Swallow 08/16/17 0000 Signed Impressions: Service Date/Time: Wednesday, August 16, 2017 00:00 - CONCLUSION: Modified barium swallow performed with speech pathology. Karel Ghosh MD Abdomen/Pelvis CT 08/08/17 0000 Signed Impressions: Service Date/Time: Tuesday, August 08, 2017 11:16 - CONCLUSION: PEG tube site remains patent from stomach to the anterior abdominal wall with induration in the rectus. Patchy airspace disease in both lungs. Rudy Meng MD FACR Abdomen X-Ray 08/06/17 0000 Signed Impressions: Service Date/Time: Sunday, August 06, 2017 00:36 - CONCLUSION: PEG tube overlying the left lower abdomen. Christopher Sarmiento MD Chest X-Ray 07/09/17 0000 Signed Impressions: Service Date/Time: Sunday, July 09, 2017 14:04 - CONCLUSION: 1. Stable mild central bibasilar patchy airspace disease. 2. No significant interval change. Gustavo Santoro MD Head CT 07/06/17 0000 Signed Impressions: Service Date/Time: Thursday, July 06, 2017 09:07 - CONCLUSION: 1. 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 2. Mucous retention cyst within left maxillary and right sphenoid sinuses. Juan Pablo Huffman MD Hepatobiliary Scan Nuclear Medicine 06/28/17 0900 Signed Impressions: Service Date/Time: Wednesday, June 28, 2017 10:17 - CONCLUSION: Nonspecific persistent distention of the gallbladder. No evidence of acute cholecystitis or biliary obstruction. Christopher Gutierrez MD Lung Scan-VQ Nuclear Medicine 06/24/17 0000 Signed Impressions: Service Date/Time: Saturday, June 24, 2017 12:21 - CONCLUSION: 1. Low probability of pulmonary embolism Jose Richard MD Head Magnetic Resonance Angiography 06/24/17 0000 Signed Impressions: Service Date/Time: Saturday, June 24, 2017 13:37 - CONCLUSION: Negative for major branch vessels obstruction in spite of MRI findings. Rudy Meng MD FACR Brain MRI 06/24/17 0000 Signed Impressions: Service Date/Time: Saturday, June 24, 2017 13:37 - CONCLUSION: Findings consistent with acute infarct left sylvian region anteriorly without hemorrhage. Rudy Meng MD FACR Carotid Artery Ultrasound 06/22/17 0000 Signed Impressions: Service Date/Time: Thursday, June 22, 2017 15:56 - CONCLUSION: No evidence of flow-limiting carotid stenosis. Christopher Leonardo MD Abdomen Ultrasound 06/22/17 0000 Signed Impressions: Service Date/Time: Thursday, June 22, 2017 16:30 - CONCLUSION: Distended gallbladder with wall thickening and internal debris. Mild calyceal dilatation involving the kidneys bilaterally Christopher Leonardo MD Objective Remarks awake and alert, mild expressive aphasia, + dysarthria anicteric lungs- no rales or wheezes regular rhythm abdomen soft, nontender, PEG site no erythema, no foul odor- minimal mucosal herniation extremities no edema gait steady Procedures PEG tube insertion. A/P Problem List: (1) Thrombocytopenia ICD Code: D69.6 - Thrombocytopenia, unspecified (2) Polycythemia ICD Code: D75.1 - Secondary polycythemia (3) CVA (cerebral vascular accident) ICD Code: I63.9 - Cerebral infarction, unspecified (4) Stroke ICD Code: I63.9 - Cerebral infarction, unspecified Status: Acute (5) Incontinence ICD Code: R32 - Unspecified urinary incontinence (6) Cystitis ICD Code: N30.90 - Cystitis, unspecified without hematuria Assessment and Plan CVA , with expressive aphasia and mild right hemiparesis, dysarthria, mild dysphagia Continue with aspirin LDL 36 therefore statin is not indicated PT/OT/speech therapy Appreciate input from neurology Continue current treatment S/P aspiration pneumonia-treated. s/p Augmentin 07/16/17 Hyperammonemia-resolved Continue lactulose daily Monitor ammonia level as needed. Acute hypoxemic respiratory failure- Resolved Continue with DuoNeb when necessary and maintain oxygen saturation above 92% Hypertension Cardiomyopathy- SBPs in the- 2-D echo revealed LVEF of 45%. Continue beta marilou/neeraj.- decrease Lopresssor to 12.5 mg po bid- - 08/17 continue lisinopril 10 mg daily- decrease to 5 mg daily. monitor and adjust Appreciate input from cardiology who signed off Dysphagia-improving.- good po PEG has been removed. ST ff PEG infection- improving no recurrent fever and abdominal pain has resolved. CT of the abdomen as noted above. continue Bactrim; - culture; - growing Pseudominas/yeasts wound care nurse consult f/u with GI as outpatient. History of chronic of chronic benzodiazepine use Advised on cessation Upper GI and rectal bleed Elevated transaminases Hepatitis C antibody positive Currently on Protonix Appreciate input from GI who signed off s/p EGD with gastritis and esophagitis. HIDA scan 06/28 with distended gallbladder-no evidence of acute cholecystitis s/p PEG placement / removal History of incontinence Resolved Acute kidney injury Resolved Thrombocytopenia resolved. insomnia; ambien as needed. History of chronic pain per patient- on chronic pain meds per PCP per patient will continue on Percocet - change to 10/325 mg po q 6 prn this dose was confirmed with PCP- Dr. Moon's office Prophylaxis - GI - PO Protonix - DVT - SCD/heparin subcutaneous on hold due to GI bleed.- patient up anfd ambulating- idnependent CM- ready for DC if safe disposition- SSI pending- sister won't take her Problem Qualifiers (1) CVA (cerebral vascular accident): Qualified Codes: I63.9 - Cerebral infarction, unspecified (2) Stroke: Qualified Codes: I63.9 - Cerebral infarction, unspecified (3) Incontinence: Qualified Codes: R32 - Unspecified urinary incontinence Sara Greene MD Aug 18, 2017 10:30
[2017-08-18 12:18] VITALS: BP 102/63; PULSE 81; RESP 16; TEMP 97.5; O2SAT 94
[2017-08-18 16:39] VITALS: BP 108/65; PULSE 75; RESP 16; TEMP 98; O2SAT 94
[2017-08-18 21:00] VITALS: PULSE 78; RESP 20; TEMP 97.7; O2SAT 99
[2017-08-18] MEDS: ZOLPIDEM TARTRATE 5 MG TAB PO PRN ×2 (22:03)
[2017-08-19] MEDS: oxyCODONE/ACETAMINOPHEN 10 MG/325 MG TAB PO PRN ×8 (03:59→21:58)
[2017-08-19] MEDS: CHLORHEXIDINE GLUCONATE 2 % 1 PACK (2 CLOTHS) TOP SCH ×2 (04:00)
[2017-08-19 04:34] VITALS: BP 102/67; PULSE 82; RESP 20; TEMP 97.2; O2SAT 94
[2017-08-19 08:17] VITALS: BP 95/59; PULSE 68; RESP 18; TEMP 97.1; O2SAT 96
[2017-08-19] MEDS: METOPROLOL TARTRATE 25 MG TAB PO SCH ×6 (09:00→22:16)
[2017-08-19] MEDS: SODIUM CHLORIDE 0.9% FLUSH 10 ML FLUSH IV FLUSH SCH ×4 (09:00→22:00)
[2017-08-19] MEDS: LISINOPRIL 5 MG TAB PO SCH ×2 (09:00)
[2017-08-19] MEDS: LACTULOSE SYRUP 20 GM/30 ML CUP PO SCH ×2 (09:40)
[2017-08-19] MEDS: PANTOPRAZOLE SOD 40 MG DELAYED RELEASE TAB PO SCH ×4 (09:40→21:58)
[2017-08-19] MEDS: RIFAXIMIN 550 MG TAB PO SCH ×4 (09:40→21:59)
[2017-08-19] MEDS: SULFAMETHOXAZOLE-TRIMETHOPRIM DS 800-160 MG TAB PO SCH ×4 (09:40→21:58)
[2017-08-19] MEDS: ASPIRIN 81 MG CHEW TAB PO SCH ×2 (09:41)
[2017-08-19] MEDS: NEOMYCIN/POLYMYXIN/BACITRACIN OINT 0.9 GM PACKET TOPICAL SCH ×4 (09:42→22:01)
[2017-08-19] MEDS: LACTOBACILLUS ACIDOPHILUS 1 GM PACKET PO SCH ×4 (09:47→22:08)
--- NOTE | 2017-08-19 12:54 | HHI.PR ---
Subjective Remarks expressive more words/sentences out- improved no other complains Objective Vitals Vital Signs Date Time Temp Pulse Resp B/P (MAP) Pulse Ox O2 Delivery O2 Flow Rate FiO2 08/19/17 08:17 97.1 68 18 95/59 (71) 96 08/19/17 04:34 97.2 82 20 102/67 (79) 94 08/18/17 21:00 97.7 78 20 99 08/18/17 16:39 98.0 75 16 108/65 (79) 94 I/O 08/18/17 08/18/17 08/18/17 08/19/17 08/19/17 08/19/17 07:00 15:00 23:00 07:00 15:00 23:00 Intake Total 1240 ml 720 ml Balance 1240 ml 720 ml Intake Oral 1240 ml 720 ml # Voids 1 4 1 Imaging Last Impressions Modified Barium Swallow 08/16/17 0000 Signed Impressions: Service Date/Time: Wednesday, August 16, 2017 00:00 - CONCLUSION: Modified barium swallow performed with speech pathology. Karel Ghosh MD Abdomen/Pelvis CT 08/08/17 0000 Signed Impressions: Service Date/Time: Tuesday, August 08, 2017 11:16 - CONCLUSION: PEG tube site remains patent from stomach to the anterior abdominal wall with induration in the rectus. Patchy airspace disease in both lungs. Rudy Meng MD FACR Abdomen X-Ray 08/06/17 0000 Signed Impressions: Service Date/Time: Sunday, August 06, 2017 00:36 - CONCLUSION: PEG tube overlying the left lower abdomen. Christopher Sarmiento MD Chest X-Ray 07/09/17 0000 Signed Impressions: Service Date/Time: Sunday, July 09, 2017 14:04 - CONCLUSION: 1. Stable mild central bibasilar patchy airspace disease. 2. No significant interval change. Gustavo Santoro MD Head CT 07/06/17 0000 Signed Impressions: Service Date/Time: Thursday, July 06, 2017 09:07 - CONCLUSION: 1. 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 2. Mucous retention cyst within left maxillary and right sphenoid sinuses. Juan Pablo Huffman MD Hepatobiliary Scan Nuclear Medicine 06/28/17 0900 Signed Impressions: Service Date/Time: Wednesday, June 28, 2017 10:17 - CONCLUSION: Nonspecific persistent distention of the gallbladder. No evidence of acute cholecystitis or biliary obstruction. Christopher Gutierrez MD Lung Scan-V Nuclear Medicine 06/24/17 Signed Impressions: Service Date/Time: Saturday, June 24, 2017 12:21 - CONCLUSION: 1. Low probability of pulmonary embolism Jose Richard MD Head Magnetic Resonance Angiography 06/24/17 Signed Impressions: Service Date/Time: Saturday, June 24, 2017 13:37 - CONCLUSION: Negative for major branch vessels obstruction in spite of MRI findings. Rudy Meng MD FACR Brain MRI 06/24/17 Signed Impressions: Service Date/Time: Saturday, June 24, 2017 13:37 - CONCLUSION: Findings consistent with acute infarct left sylvian region anteriorly without hemorrhage. Rudy Meng MD FACR Carotid Artery Ultrasound 06/22/17 Signed Impressions: Service Date/Time: Thursday, June 22, 2017 15:56 - CONCLUSION: No evidence of flow-limiting carotid stenosis. Christopher Leonardo MD Abdomen Ultrasound 06/22/17 Signed Impressions: Service Date/Time: Thursday, June 22, 2017 16:30 - CONCLUSION: Distended gallbladder with wall thickening and internal debris. Mild calyceal dilatation involving the kidneys bilaterally Christopher Leonardo MD Objective Remarks awake and alert, mild expressive aphasia- improving , + dysarthria anicteric lungs- no rales or wheezes regular rhythm abdomen soft, nontender, previous PEG site no erythema, no foul odor- minimal mucosal herniation extremities no edema gait steady Procedures PEG tube insertion. A/P Problem List: (1) Thrombocytopenia ICD Code: D69.6 - Thrombocytopenia, unspecified (2) Polycythemia ICD Code: D75.1 - Secondary polycythemia (3) CVA (cerebral vascular accident) ICD Code: I63.9 - Cerebral infarction, unspecified (4) Stroke ICD Code: I63.9 - Cerebral infarction, unspecified Status: Acute (5) Incontinence ICD Code: R32 - Unspecified urinary incontinence (6) Cystitis ICD Code: N30.90 - Cystitis, unspecified without hematuria Assessment and Plan CVA , with expressive aphasia and mild right hemiparesis, dysarthria, mild dysphagia- improving Continue with aspirin LDL 36 therefore statin is not indicated PT/OT/speech therapy Appreciate input from neurology Continue current treatment S/P aspiration pneumonia-treated. s/p Augmentin 07/16/17 Hyperammonemia-resolved Continue lactulose daily Monitor ammonia level as needed. Acute hypoxemic respiratory failure- Resolved Continue with DuoNeb when necessary and maintain oxygen saturation above 92% Hypertension Cardiomyopathy- SBPs in the-90s 2-D echo revealed LVEF of 45%. Continue beta marilou/neeraj.- decrease Lopresssor to 12.5 mg po bid- - 08/17 continue lisinopril 10 mg daily- decrease to 5 mg daily. monitor and adjust Appreciate input from cardiology who signed off Dysphagia-improving.- good po PEG has been removed. ST ff PEG infection- improving no recurrent fever and abdominal pain has resolved. CT of the abdomen as noted above. continue Bactrim; - culture; - growing Pseudominas/yeasts wound care nurse consult f/u with GI as outpatient. History of chronic of chronic benzodiazepine use Advised on cessation Upper GI and rectal bleed Elevated transaminases Hepatitis C antibody positive Currently on Protonix Appreciate input from GI who signed off s/p EGD with gastritis and esophagitis. HIDA scan 06/28 with distended gallbladder-no evidence of acute cholecystitis s/p PEG placement / removal History of incontinence Resolved Acute kidney injury Resolved Thrombocytopenia resolved. insomnia; ambien as needed. History of chronic pain per patient- on chronic pain meds per PCP per patient will continue on Percocet - change to 10/325 mg po q 6 prn this dose was confirmed with PCP- Dr. Moon's office Prophylaxis - GI - PO Protonix - DVT - SCD/heparin subcutaneous on hold due to GI bleed.- patient up an ambulating- idnependent CM- ready for DC if safe disposition- SSI pending- sister won't take her Problem Qualifiers (1) CVA (cerebral vascular accident): Qualified Codes: I63.9 - Cerebral infarction, unspecified (2) Stroke: Qualified Codes: I63.9 - Cerebral infarction, unspecified (3) Incontinence: Qualified Codes: R32 - Unspecified urinary incontinence Sara Greene MD Aug 19, 2017 12:54
[2017-08-19 13:08] VITALS: BP 109/65; PULSE 88; RESP 18; TEMP 97.2; O2SAT 95
[2017-08-19 16:49] VITALS: BP 111/69; PULSE 86; RESP 18; TEMP 98.4; O2SAT 97
[2017-08-19 20:00] VITALS: BP 94/60; PULSE 91; RESP 18; TEMP 97.3; O2SAT 96
[2017-08-19] MEDS: ZOLPIDEM TARTRATE 5 MG TAB PO PRN ×2 (22:08)
[2017-08-20] MEDS: CHLORHEXIDINE GLUCONATE 2 % 1 PACK (2 CLOTHS) TOP SCH ×2 (04:00)
[2017-08-20 04:20] VITALS: BP 100/60; PULSE 80; RESP 20; TEMP 97.2; O2SAT 97
[2017-08-20] MEDS: oxyCODONE/ACETAMINOPHEN 10 MG/325 MG TAB PO PRN ×8 (04:29→22:16)
[2017-08-20 08:16] VITALS: BP 101/69; PULSE 81; RESP 16; TEMP 97.6; O2SAT 99
[2017-08-20] MEDS: LACTOBACILLUS ACIDOPHILUS 1 GM PACKET PO SCH ×4 (08:57→22:18)
[2017-08-20] MEDS: LISINOPRIL 5 MG TAB PO SCH ×2 (08:58)
[2017-08-20] MEDS: NEOMYCIN/POLYMYXIN/BACITRACIN OINT 0.9 GM PACKET TOPICAL SCH ×4 (08:58→22:15)
[2017-08-20] MEDS: LACTULOSE SYRUP 20 GM/30 ML CUP PO SCH ×2 (08:58)
[2017-08-20] MEDS: SULFAMETHOXAZOLE-TRIMETHOPRIM DS 800-160 MG TAB PO SCH ×4 (08:58→22:16)
[2017-08-20] MEDS: ASPIRIN 81 MG CHEW TAB PO SCH ×2 (08:58)
[2017-08-20] MEDS: RIFAXIMIN 550 MG TAB PO SCH ×4 (08:58→22:16)
[2017-08-20] MEDS: SODIUM CHLORIDE 0.9% FLUSH 10 ML FLUSH IV FLUSH SCH ×4 (08:58→22:18)
[2017-08-20] MEDS: PANTOPRAZOLE SOD 40 MG DELAYED RELEASE TAB PO SCH ×4 (08:58→22:16)
[2017-08-20] MEDS: METOPROLOL TARTRATE 25 MG TAB PO SCH ×2 (08:58)
[2017-08-20 12:29] VITALS: BP 104/64; PULSE 83; RESP 18; TEMP 97.7; O2SAT 97
--- NOTE | 2017-08-20 12:50 | HHI.PR ---
Subjective Remarks no complains up and ambulating speech improving Objective Vitals Vital Signs Date Time Temp Pulse Resp B/P (MAP) Pulse Ox O2 Delivery O2 Flow Rate FiO2 08/20/17 12:29 97.7 83 18 104/64 (77) 97 08/20/17 08:16 97.6 81 16 101/69 (80) 99 08/20/17 04:20 97.2 80 20 100/60 (73) 97 08/19/17 20:00 97.3 91 18 94/60 (71) 96 08/19/17 16:49 98.4 86 18 111/69 (83) 97 08/19/17 13:08 97.2 88 18 109/65 (80) 95 I/O 08/19/17 08/19/17 08/19/17 08/20/17 08/20/17 08/20/17 07:00 15:00 23:00 07:00 15:00 23:00 Intake Total 720 ml 480 ml Balance 720 ml 480 ml Intake Oral 720 ml 480 ml # Voids 1 5 9 # Bowel Movements 2 1 Imaging Last Impressions Modified Barium Swallow 08/16/17 0000 Signed Impressions: Service Date/Time: Wednesday, August 16, 2017 00:00 - CONCLUSION: Modified barium swallow performed with speech pathology. Karel Ghosh MD Abdomen/Pelvis CT 08/08/17 0000 Signed Impressions: Service Date/Time: Tuesday, August 08, 2017 11:16 - CONCLUSION: PEG tube site remains patent from stomach to the anterior abdominal wall with induration in the rectus. Patchy airspace disease in both lungs. Rudy Meng MD FACR Abdomen X-Ray 08/06/17 0000 Signed Impressions: Service Date/Time: Sunday, August 06, 2017 00:36 - CONCLUSION: PEG tube overlying the left lower abdomen. Christopher Sarmiento MD Chest X-Ray 07/09/17 0000 Signed Impressions: Service Date/Time: Sunday, July 09, 2017 14:04 - CONCLUSION: 1. Stable mild central bibasilar patchy airspace disease. 2. No significant interval change. Gustavo Santoro MD Head CT 07/06/17 0000 Signed Impressions: Service Date/Time: Thursday, July 06, 2017 09:07 - CONCLUSION: 1. 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 2. Mucous retention cyst within left maxillary and right sphenoid sinuses. Juan Pablo Huffman MD Hepatobiliary Scan Nuclear Medicine 06/28/17 0900 Signed Impressions: Service Date/Time: Wednesday, June 28, 2017 10:17 - CONCLUSION: Nonspecific persistent distention of the gallbladder. No evidence of acute cholecystitis or biliary obstruction. Christopher Gutierrez MD Lung Scan-VQ Nuclear Medicine 06/24/17 0000 Signed Impressions: Service Date/Time: Saturday, June 24, 2017 12:21 - CONCLUSION: 1. Low probability of pulmonary embolism Jose Richard MD Head Magnetic Resonance Angiography 06/24/17 0000 Signed Impressions: Service Date/Time: Saturday, June 24, 2017 13:37 - CONCLUSION: Negative for major branch vessels obstruction in spite of MRI findings. Rudy Meng MD FACR Brain MRI 06/24/17 0000 Signed Impressions: Service Date/Time: Saturday, June 24, 2017 13:37 - CONCLUSION: Findings consistent with acute infarct left sylvian region anteriorly without hemorrhage. Rudy Meng MD FACR Carotid Artery Ultrasound 06/22/17 0000 Signed Impressions: Service Date/Time: Thursday, June 22, 2017 15:56 - CONCLUSION: No evidence of flow-limiting carotid stenosis. Christopher Leonardo MD Abdomen Ultrasound 06/22/17 0000 Signed Impressions: Service Date/Time: Thursday, June 22, 2017 16:30 - CONCLUSION: Distended gallbladder with wall thickening and internal debris. Mild calyceal dilatation involving the kidneys bilaterally Christopher Leonardo MD Objective Remarks awake and alert, mild expressive aphasia- improving , + dysarthria anicteric lungs- no rales or wheezes regular rhythm abdomen soft, nontender, previous PEG site no erythema, dry extremities no edema gait steady Procedures PEG tube insertion. A/P Problem List: (1) Thrombocytopenia ICD Code: D69.6 - Thrombocytopenia, unspecified (2) Polycythemia ICD Code: D75.1 - Secondary polycythemia (3) CVA (cerebral vascular accident) ICD Code: I63.9 - Cerebral infarction, unspecified (4) Stroke ICD Code: I63.9 - Cerebral infarction, unspecified Status: Acute (5) Incontinence ICD Code: R32 - Unspecified urinary incontinence (6) Cystitis ICD Code: N30.90 - Cystitis, unspecified without hematuria Assessment and Plan CVA , with expressive aphasia and mild right hemiparesis, dysarthria, mild dysphagia- improving Continue with aspirin LDL 36 therefore statin is not indicated PT/OT/speech therapy Appreciate input from neurology Continue current treatment S/P aspiration pneumonia-treated. s/p Augmentin 07/16/17 Hyperammonemia-resolved Continue lactulose daily Monitor ammonia level as needed. Acute hypoxemic respiratory failure- Resolved Continue with DuoNeb when necessary and maintain oxygen saturation above 92% Hypertension Cardiomyopathy- SBPs in the- 2-D echo revealed LVEF of 45%. Continue beta marilou/neeraj.- decrease Lopresssor to 12.5 mg po bid- - 08/17 continue lisinopril 10 mg daily- decrease to 5 mg daily. monitor and adjust Appreciate input from cardiology who signed off Dysphagia-improving.- good po PEG has been removed. ST ff PEG infection- improving no recurrent fever and abdominal pain has resolved. CT of the abdomen as noted above. continue Bactrim; - culture; - growing Pseudominas/yeasts wound care nurse consult f/u with GI as outpatient. History of chronic of chronic benzodiazepine use Advised on cessation Upper GI and rectal bleed Elevated transaminases Hepatitis C antibody positive Currently on Protonix Appreciate input from GI who signed off s/p EGD with gastritis and esophagitis. HIDA scan 06/28 with distended gallbladder-no evidence of acute cholecystitis s/p PEG placement / removal History of incontinence Resolved Acute kidney injury Resolved Thrombocytopenia resolved. insomnia; ambien as needed. History of chronic pain per patient- on chronic pain meds per PCP per patient will continue on Percocet - change to 10/325 mg po q 6 prn this dose was confirmed with PCP- Dr. Moon's office Prophylaxis - GI - PO Protonix - DVT - SCD/heparin subcutaneous on hold due to GI bleed.- patient up anfd ambulating- idnependent CM- ready for DC if safe disposition- SSI pending- sister won't take her Problem Qualifiers (1) CVA (cerebral vascular accident): Qualified Codes: I63.9 - Cerebral infarction, unspecified (2) Stroke: Qualified Codes: I63.9 - Cerebral infarction, unspecified (3) Incontinence: Qualified Codes: R32 - Unspecified urinary incontinence Lacierda,Alfea M. MD Aug 20, 2017 12:50
[2017-08-20 16:43] VITALS: BP 106/69; PULSE 73; RESP 18; TEMP 98; O2SAT 99
[2017-08-20 21:04] VITALS: BP 102/58; PULSE 78; RESP 18; TEMP 98.3; O2SAT 96
[2017-08-20] MEDS: ZOLPIDEM TARTRATE 5 MG TAB PO PRN ×2 (22:17)
[2017-08-20 22:20] VITALS: BP 96/56; PULSE 75
[2017-08-21 01:00] VITALS: BP 94/55; PULSE 91; RESP 16; TEMP 97.8; O2SAT 95
[2017-08-21] MEDS: CHLORHEXIDINE GLUCONATE 2 % 1 PACK (2 CLOTHS) TOP SCH ×2 (04:00)
[2017-08-21] MEDS: oxyCODONE/ACETAMINOPHEN 10 MG/325 MG TAB PO PRN ×8 (04:34→22:19)
[2017-08-21 06:00] VITALS: BP 99/71; PULSE 90; RESP 16; TEMP 97.9; O2SAT 95
[2017-08-21 08:00] VITALS: BP 115/75; PULSE 86; RESP 18; TEMP 98.4; O2SAT 95
[2017-08-21] MEDS: SULFAMETHOXAZOLE-TRIMETHOPRIM DS 800-160 MG TAB PO SCH ×2 (08:55)
[2017-08-21] MEDS: ASPIRIN 81 MG CHEW TAB PO SCH ×2 (08:56)
[2017-08-21] MEDS: RIFAXIMIN 550 MG TAB PO SCH ×4 (08:56→21:12)
[2017-08-21] MEDS: LISINOPRIL 5 MG TAB PO SCH ×2 (08:56)
[2017-08-21] MEDS: PANTOPRAZOLE SOD 40 MG DELAYED RELEASE TAB PO SCH ×4 (08:56→21:12)
[2017-08-21] MEDS: NEOMYCIN/POLYMYXIN/BACITRACIN OINT 0.9 GM PACKET TOPICAL SCH ×4 (08:56→21:00)
[2017-08-21] MEDS: LACTULOSE SYRUP 20 GM/30 ML CUP PO SCH ×2 (08:57)
[2017-08-21] MEDS: LACTOBACILLUS ACIDOPHILUS 1 GM PACKET PO SCH ×2 (08:57)
[2017-08-21] MEDS: METOPROLOL TARTRATE 25 MG TAB PO SCH ×4 (08:57→21:12)
[2017-08-21] MEDS: SODIUM CHLORIDE 0.9% FLUSH 10 ML FLUSH IV FLUSH SCH ×4 (08:58→21:00)
[2017-08-21 12:17] VITALS: BP 105/72; PULSE 74; RESP 16; TEMP 98; O2SAT 97
--- NOTE | 2017-08-21 13:19 | HHI.PR ---
Subjective Remarks patient doing well seen with a good friend at bedside visiting who is helping with disability paper works c/o cough- minimal no sputum Objective Vitals Vital Signs Date Time Temp Pulse Resp B/P (MAP) Pulse Ox O2 Delivery O2 Flow Rate FiO2 08/21/17 12:17 98.0 74 16 105/72 (83) 97 08/21/17 08:00 98.4 86 18 115/75 (88) 95 08/21/17 06:00 97.9 90 16 99/71 (80) 95 08/21/17 01:00 97.8 91 16 94/55 (68) 95 08/20/17 22:20 75 96/56 (69) 08/20/17 21:04 98.3 78 18 102/58 (73) 96 08/20/17 16:43 98.0 73 18 106/69 (81) 99 I/O 08/20/17 08/20/17 08/20/17 08/21/17 08/21/17 08/21/17 07:00 15:00 23:00 07:00 15:00 23:00 Intake Total 960 ml Balance 960 ml Intake Oral 960 ml # Voids 9 2 # Bowel Movements 1 Imaging Last Impressions Modified Barium Swallow 08/16/17 0000 Signed Impressions: Service Date/Time: Wednesday, August 16, 2017 00:00 - CONCLUSION: Modified barium swallow performed with speech pathology. Karel Ghosh MD Abdomen/Pelvis CT 08/08/17 0000 Signed Impressions: Service Date/Time: Tuesday, August 08, 2017 11:16 - CONCLUSION: PEG tube site remains patent from stomach to the anterior abdominal wall with induration in the rectus. Patchy airspace disease in both lungs. Rudy Meng MD FACR Abdomen X-Ray 08/06/17 0000 Signed Impressions: Service Date/Time: Sunday, August 06, 2017 00:36 - CONCLUSION: PEG tube overlying the left lower abdomen. Christopher Sarmiento MD Chest X-Ray 07/09/17 0000 Signed Impressions: Service Date/Time: Sunday, July 09, 2017 14:04 - CONCLUSION: 1. Stable mild central bibasilar patchy airspace disease. 2. No significant interval change. Gustavo Santoro MD Head CT 07/06/17 0000 Signed Impressions: Service Date/Time: Thursday, July 06, 2017 09:07 - CONCLUSION: 1. 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 2. Mucous retention cyst within left maxillary and right sphenoid sinuses. Juan Pablo Huffman MD Hepatobiliary Scan Nuclear Medicine 06/28/17 0900 Signed Impressions: Service Date/Time: Wednesday, June 28, 2017 10:17 - CONCLUSION: Nonspecific persistent distention of the gallbladder. No evidence of acute cholecystitis or biliary obstruction. Christopher Gutierrez MD Lung Scan-VQ Nuclear Medicine 06/24/17 0000 Signed Impressions: Service Date/Time: Saturday, June 24, 2017 12:21 - CONCLUSION: 1. Low probability of pulmonary embolism Jose Richard MD Head Magnetic Resonance Angiography 06/24/17 0000 Signed Impressions: Service Date/Time: Saturday, June 24, 2017 13:37 - CONCLUSION: Negative for major branch vessels obstruction in spite of MRI findings. Rudy Meng MD FACR Brain MRI 06/24/17 0000 Signed Impressions: Service Date/Time: Saturday, June 24, 2017 13:37 - CONCLUSION: Findings consistent with acute infarct left sylvian region anteriorly without hemorrhage. Rudy Megn MD FACR Carotid Artery Ultrasound 06/22/17 0000 Signed Impressions: Service Date/Time: Thursday, June 22, 2017 15:56 - CONCLUSION: No evidence of flow-limiting carotid stenosis. Christopher Leonardo MD Abdomen Ultrasound 06/22/17 0000 Signed Impressions: Service Date/Time: Thursday, June 22, 2017 16:30 - CONCLUSION: Distended gallbladder with wall thickening and internal debris. Mild calyceal dilatation involving the kidneys bilaterally Christopher Leonardo MD Objective Remarks awake and alert, mild expressive aphasia- improving , + dysarthria anicteric lungs- no rales or wheezes regular rhythm abdomen soft, nontender, previous PEG site no erythema, dry extremities no edema gait steady Procedures PEG tube insertion. A/P Problem List: (1) Thrombocytopenia ICD Code: D69.6 - Thrombocytopenia, unspecified (2) Polycythemia ICD Code: D75.1 - Secondary polycythemia (3) CVA (cerebral vascular accident) ICD Code: I63.9 - Cerebral infarction, unspecified (4) Stroke ICD Code: I63.9 - Cerebral infarction, unspecified Status: Acute (5) Incontinence ICD Code: R32 - Unspecified urinary incontinence (6) Cystitis ICD Code: N30.90 - Cystitis, unspecified without hematuria Assessment and Plan CVA , with expressive aphasia and mild right hemiparesis, dysarthria, mild dysphagia- improving- neuro stable Continue with aspirin LDL 36 therefore statin is not indicated PT/OT/speech therapy Appreciate input from neurology Continue current treatment S/P aspiration pneumonia-treated. s/p Augmentin 07/16/17 Hyperammonemia-resolved Continue lactulose daily Monitor ammonia level as needed. Acute hypoxemic respiratory failure- Resolved Continue with DuoNeb when necessary and maintain oxygen saturation above 92% Hypertension Cardiomyopathy- SBPs in the- 2-D echo revealed LVEF of 45%. Continue beta marilou/neeraj.- decrease Lopresssor to 12.5 mg po bid- - 08/17 continue lisinopril 10 mg daily- decrease to 5 mg daily. monitor and adjust Appreciate input from cardiology who signed off Dysphagia-improving.- good po PEG has been removed. ST ff PEG infection- improving S/P treatment with Bactrim course no recurrent fever and abdominal pain has resolved. CT of the abdomen as noted above. f/u with GI as outpatient. History of chronic of chronic benzodiazepine use Advised on cessation Upper GI and rectal bleed Elevated transaminases Hepatitis C antibody positive Currently on Protonix Appreciate input from GI who signed off s/p EGD with gastritis and esophagitis. HIDA scan 06/28 with distended gallbladder-no evidence of acute cholecystitis s/p PEG placement / removal History of incontinence Resolved Acute kidney injury Resolved Thrombocytopenia resolved. insomnia; ambien as needed. History of chronic pain per patient- on chronic pain meds per PCP per patient will continue on Percocet - change to 10/325 mg po q 6 prn this dose was confirmed with PCP- Dr. Moon's office Prophylaxis - GI - PO Protonix - DVT - SCD/heparin subcutaneous on hold due to GI bleed.- patient up anfd ambulating- idnependent CM- ready for DC if safe disposition- SSI pending- sister won't take her Problem Qualifiers (1) CVA (cerebral vascular accident): Qualified Codes: I63.9 - Cerebral infarction, unspecified (2) Stroke: Qualified Codes: I63.9 - Cerebral infarction, unspecified (3) Incontinence: Qualified Codes: R32 - Unspecified urinary incontinence Sara Greene MD Aug 21, 2017 13:19
[2017-08-21 16:24] VITALS: BP 105/64; PULSE 74; RESP 17; TEMP 98; O2SAT 97
[2017-08-21] MEDS: guaiFENesin/DEXTROMETHORPHAN 200 MG/20 MG/10 ML CUP PO PRN ×2 (21:12)
[2017-08-21 21:25] VITALS: BP 103/69; PULSE 81; RESP 16; TEMP 97.8; O2SAT 95
[2017-08-21] MEDS: ZOLPIDEM TARTRATE 5 MG TAB PO PRN ×2 (22:19)
[2017-08-22 01:00] VITALS: BP 103/69; PULSE 81; RESP 16; TEMP 97.8; O2SAT 95
[2017-08-22] MEDS: CHLORHEXIDINE GLUCONATE 2 % 1 PACK (2 CLOTHS) TOP SCH ×2 (04:00)
[2017-08-22] MEDS: oxyCODONE/ACETAMINOPHEN 10 MG/325 MG TAB PO PRN ×8 (04:21→22:25)
[2017-08-22 06:20] VITALS: BP 98/66; PULSE 77; RESP 18; TEMP 97.7; O2SAT 96
[2017-08-22 08:57] VITALS: BP 105/65; PULSE 84; RESP 20; TEMP 98; O2SAT 94
[2017-08-22] MEDS: LISINOPRIL 5 MG TAB PO SCH ×2 (09:00)
[2017-08-22] MEDS: SODIUM CHLORIDE 0.9% FLUSH 10 ML FLUSH IV FLUSH SCH ×4 (09:00→22:27)
[2017-08-22] MEDS: METOPROLOL TARTRATE 25 MG TAB PO SCH ×2 (09:00)
[2017-08-22] MEDS: LACTULOSE SYRUP 20 GM/30 ML CUP PO SCH ×2 (09:31)
[2017-08-22] MEDS: PANTOPRAZOLE SOD 40 MG DELAYED RELEASE TAB PO SCH ×4 (09:33→22:24)
[2017-08-22] MEDS: RIFAXIMIN 550 MG TAB PO SCH ×4 (09:33→22:24)
[2017-08-22] MEDS: ASPIRIN 81 MG CHEW TAB PO SCH ×2 (09:34)
[2017-08-22] MEDS: NEOMYCIN/POLYMYXIN/BACITRACIN OINT 0.9 GM PACKET TOPICAL SCH ×4 (09:35→22:27)
[2017-08-22] MEDS: guaiFENesin/DEXTROMETHORPHAN 200 MG/20 MG/10 ML CUP PO PRN ×4 (09:49→17:04)
[2017-08-22 12:49] VITALS: BP 102/71; PULSE 90; RESP 20; TEMP 97.3; O2SAT 94
--- NOTE | 2017-08-22 13:24 | HHI.PR ---
Subjective Remarks doing very well no complains Objective Vitals Vital Signs Date Time Temp Pulse Resp B/P (MAP) Pulse Ox O2 Delivery O2 Flow Rate FiO2 08/22/17 12:49 97.3 90 20 102/71 (81) 94 08/22/17 08:57 98.0 84 20 105/65 (78) 94 08/22/17 06:20 97.7 77 18 98/66 (77) 96 08/22/17 01:00 97.8 81 16 103/69 (80) 95 08/21/17 21:25 97.8 81 16 103/69 (80) 95 08/21/17 16:24 98.0 74 17 105/64 (78) 97 I/O 08/21/17 08/21/17 08/21/17 08/22/17 08/22/17 08/22/17 07:00 15:00 23:00 07:00 15:00 23:00 # Voids 2 3 Imaging Last Impressions Modified Barium Swallow 08/16/17 0000 Signed Impressions: Service Date/Time: Wednesday, August 16, 2017 00:00 - CONCLUSION: Modified barium swallow performed with speech pathology. Karel Ghosh MD Abdomen/Pelvis CT 08/08/17 0000 Signed Impressions: Service Date/Time: Tuesday, August 08, 2017 11:16 - CONCLUSION: PEG tube site remains patent from stomach to the anterior abdominal wall with induration in the rectus. Patchy airspace disease in both lungs. Rudy Meng MD FACR Abdomen X-Ray 08/06/17 0000 Signed Impressions: Service Date/Time: Sunday, August 06, 2017 00:36 - CONCLUSION: PEG tube overlying the left lower abdomen. Christopher Sarmiento MD Chest X-Ray 07/09/17 0000 Signed Impressions: Service Date/Time: Sunday, July 09, 2017 14:04 - CONCLUSION: 1. Stable mild central bibasilar patchy airspace disease. 2. No significant interval change. Gustavo Santoro MD Head CT 07/06/17 0000 Signed Impressions: Service Date/Time: Thursday, July 06, 2017 09:07 - CONCLUSION: 1. 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 2. Mucous retention cyst within left maxillary and right sphenoid sinuses. Juan Pablo Huffman MD Hepatobiliary Scan Nuclear Medicine 06/28/17 0900 Signed Impressions: Service Date/Time: Wednesday, June 28, 2017 10:17 - CONCLUSION: Nonspecific persistent distention of the gallbladder. No evidence of acute cholecystitis or biliary obstruction. Christopher Gutierrez MD Lung Scan-VQ Nuclear Medicine 06/24/17 0000 Signed Impressions: Service Date/Time: Saturday, June 24, 2017 12:21 - CONCLUSION: 1. Low probability of pulmonary embolism Jose Richard MD Head Magnetic Resonance Angiography 06/24/17 0000 Signed Impressions: Service Date/Time: Saturday, June 24, 2017 13:37 - CONCLUSION: Negative for major branch vessels obstruction in spite of MRI findings. Rudy Meng MD FACR Brain MRI 06/24/17 0000 Signed Impressions: Service Date/Time: Saturday, June 24, 2017 13:37 - CONCLUSION: Findings consistent with acute infarct left sylvian region anteriorly without hemorrhage. Rudy Meng MD FACR Carotid Artery Ultrasound 06/22/17 0000 Signed Impressions: Service Date/Time: Thursday, June 22, 2017 15:56 - CONCLUSION: No evidence of flow-limiting carotid stenosis. Christopher Leonardo MD Abdomen Ultrasound 06/22/17 0000 Signed Impressions: Service Date/Time: Thursday, June 22, 2017 16:30 - CONCLUSION: Distended gallbladder with wall thickening and internal debris. Mild calyceal dilatation involving the kidneys bilaterally Christopher Leonardo MD Objective Remarks awake and alert, mild expressive aphasia- improving, anicteric lungs- no rales or wheezes regular rhythm abdomen soft, nontender, previous PEG site no erythema, dry extremities no edema gait steady Procedures PEG tube insertion. A/P Problem List: (1) Thrombocytopenia ICD Code: D69.6 - Thrombocytopenia, unspecified (2) Polycythemia ICD Code: D75.1 - Secondary polycythemia (3) CVA (cerebral vascular accident) ICD Code: I63.9 - Cerebral infarction, unspecified (4) Stroke ICD Code: I63.9 - Cerebral infarction, unspecified Status: Acute (5) Incontinence ICD Code: R32 - Unspecified urinary incontinence (6) Cystitis ICD Code: N30.90 - Cystitis, unspecified without hematuria Assessment and Plan CVA , with expressive aphasia and mild right hemiparesis, dysarthria, mild dysphagia- improving- neuro stable Continue with aspirin LDL 36 therefore statin is not indicated PT/OT/speech therapy Appreciate input from neurology Continue current treatment S/P aspiration pneumonia-treated. s/p Augmentin 07/16/17 Hyperammonemia-resolved Continue lactulose daily Monitor ammonia level as needed. Acute hypoxemic respiratory failure- Resolved Continue with DuoNeb when necessary and maintain oxygen saturation above 92% Hypertension Cardiomyopathy- SBPs in the- 2-D echo revealed LVEF of 45%. Continue beta marilou/isa.- decrease Lopresssor to 12.5 mg po bid- - 08/17- DC altogether and monitor solely on ISA today 08/22 continue lisinopril 5 mg daily. monitor and adjust Appreciate input from cardiology who signed off Dysphagia-improving.- good po PEG has been removed. ST ff PEG infection- improving S/P treatment with Bactrim course no recurrent fever and abdominal pain has resolved. CT of the abdomen as noted above. f/u with GI as outpatient. History of chronic of chronic benzodiazepine use Advised on cessation Upper GI and rectal bleed - resolved Elevated transaminases Hepatitis C antibody positive Currently on Protonix Appreciate input from GI who signed off s/p EGD with gastritis and esophagitis. HIDA scan 06/28 with distended gallbladder-no evidence of acute cholecystitis s/p PEG placement / removal History of incontinence Resolved Acute kidney injury Resolved Thrombocytopenia resolved. insomnia; ambien as needed. History of chronic pain per patient- on chronic pain meds per PCP per patient will continue on Percocet - change to 10/325 mg po q 6 prn this dose was confirmed with PCP- Dr. Moon's office Prophylaxis - GI - PO Protonix - DVT - SCD/heparin subcutaneous on hold due to GI bleed.- patient up anfd ambulating- idnependent CM- ready for DC if safe disposition- SSI pending- sister won't take her Problem Qualifiers (1) CVA (cerebral vascular accident): Qualified Codes: I63.9 - Cerebral infarction, unspecified (2) Stroke: Qualified Codes: I63.9 - Cerebral infarction, unspecified (3) Incontinence: Qualified Codes: R32 - Unspecified urinary incontinence Sara Greene MD Aug 22, 2017 13:24
[2017-08-22 16:00] VITALS: BP 122/69; PULSE 88; RESP 20; TEMP 97.3; O2SAT 96
[2017-08-22 20:00] VITALS: BP 130/75; PULSE 85; RESP 18; TEMP 97.4; O2SAT 93
[2017-08-22] MEDS: ZOLPIDEM TARTRATE 5 MG TAB PO PRN ×2 (22:27)
[2017-08-23 04:00] VITALS: BP 100/70; PULSE 92; RESP 18; TEMP 97.1; O2SAT 92
[2017-08-23] MEDS: guaiFENesin/DEXTROMETHORPHAN 200 MG/20 MG/10 ML CUP PO PRN ×8 (04:41→22:37)
[2017-08-23] MEDS: oxyCODONE/ACETAMINOPHEN 10 MG/325 MG TAB PO PRN ×8 (04:42→22:37)
[2017-08-23] MEDS: CHLORHEXIDINE GLUCONATE 2 % 1 PACK (2 CLOTHS) TOP SCH ×2 (04:43)
[2017-08-23] MEDS: LACTULOSE SYRUP 20 GM/30 ML CUP PO SCH ×2 (08:38)
[2017-08-23] MEDS: RIFAXIMIN 550 MG TAB PO SCH ×4 (08:38→21:35)
[2017-08-23] MEDS: PANTOPRAZOLE SOD 40 MG DELAYED RELEASE TAB PO SCH ×4 (08:39→21:35)
[2017-08-23] MEDS: LISINOPRIL 5 MG TAB PO SCH ×2 (08:39)
[2017-08-23] MEDS: ASPIRIN 81 MG CHEW TAB PO SCH ×2 (08:39)
[2017-08-23] MEDS: NEOMYCIN/POLYMYXIN/BACITRACIN OINT 0.9 GM PACKET TOPICAL SCH ×4 (08:39→21:35)
[2017-08-23] MEDS: SODIUM CHLORIDE 0.9% FLUSH 10 ML FLUSH IV FLUSH SCH ×4 (08:40→21:36)
[2017-08-23 08:43] VITALS: BP 103/56; PULSE 84; RESP 20; TEMP 97.6; O2SAT 97
[2017-08-23 12:00] VITALS: BP 129/79; PULSE 78; RESP 20; TEMP 97.7; O2SAT 99
--- NOTE | 2017-08-23 13:31 | HHI.PR ---
Subjective Remarks no complains dysarthric speech but more spontaneous "really tries" Objective Vitals Vital Signs Date Time Temp Pulse Resp B/P (MAP) Pulse Ox O2 Delivery O2 Flow Rate FiO2 08/23/17 12:00 97.7 78 20 129/79 (96) 99 08/23/17 08:43 97.6 84 20 103/56 (72) 97 08/23/17 04:00 97.1 92 18 100/70 (80) 92 08/22/17 20:00 97.4 85 18 130/75 (93) 93 08/22/17 16:00 97.3 88 20 122/69 (86) 96 I/O 08/22/17 08/22/17 08/22/17 08/23/17 08/23/17 08/23/17 07:00 15:00 23:00 07:00 15:00 23:00 Intake Total 720 ml Balance 720 ml Intake Oral 720 ml # Voids 3 6 # Bowel Movements 1 Imaging Last Impressions Modified Barium Swallow 08/16/17 0000 Signed Impressions: Service Date/Time: Wednesday, August 16, 2017 00:00 - CONCLUSION: Modified barium swallow performed with speech pathology. Karel Ghosh MD Abdomen/Pelvis CT 08/08/17 0000 Signed Impressions: Service Date/Time: Tuesday, August 08, 2017 11:16 - CONCLUSION: PEG tube site remains patent from stomach to the anterior abdominal wall with induration in the rectus. Patchy airspace disease in both lungs. Rudy Meng MD FACR Abdomen X-Ray 08/06/17 0000 Signed Impressions: Service Date/Time: Sunday, August 06, 2017 00:36 - CONCLUSION: PEG tube overlying the left lower abdomen. Christopher Sarmiento MD Chest X-Ray 07/09/17 0000 Signed Impressions: Service Date/Time: Sunday, July 09, 2017 14:04 - CONCLUSION: 1. Stable mild central bibasilar patchy airspace disease. 2. No significant interval change. Gustavo Santoro MD Head CT 07/06/17 0000 Signed Impressions: Service Date/Time: Thursday, July 06, 2017 09:07 - CONCLUSION: 1. 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 2. Mucous retention cyst within left maxillary and right sphenoid sinuses. Juan Pablo Huffman MD Hepatobiliary Scan Nuclear Medicine 06/28/17 0900 Signed Impressions: Service Date/Time: Wednesday, June 28, 2017 10:17 - CONCLUSION: Nonspecific persistent distention of the gallbladder. No evidence of acute cholecystitis or biliary obstruction. Christopher Gutierrez MD Lung Scan-VQ Nuclear Medicine 06/24/17 0000 Signed Impressions: Service Date/Time: Saturday, June 24, 2017 12:21 - CONCLUSION: 1. Low probability of pulmonary embolism Jose Richard MD Head Magnetic Resonance Angiography 06/24/17 0000 Signed Impressions: Service Date/Time: Saturday, June 24, 2017 13:37 - CONCLUSION: Negative for major branch vessels obstruction in spite of MRI findings. Rudy Meng MD FACR Brain MRI 06/24/17 0000 Signed Impressions: Service Date/Time: Saturday, June 24, 2017 13:37 - CONCLUSION: Findings consistent with acute infarct left sylvian region anteriorly without hemorrhage. Rudy Meng MD FACR Carotid Artery Ultrasound 06/22/17 0000 Signed Impressions: Service Date/Time: Thursday, June 22, 2017 15:56 - CONCLUSION: No evidence of flow-limiting carotid stenosis. Christopher Leonardo MD Abdomen Ultrasound 06/22/17 0000 Signed Impressions: Service Date/Time: Thursday, June 22, 2017 16:30 - CONCLUSION: Distended gallbladder with wall thickening and internal debris. Mild calyceal dilatation involving the kidneys bilaterally Christopher Leonardo MD Objective Remarks awake and alert, mild expressive aphasia, speech dysarthric- improving, anicteric lungs- no rales or wheezes regular rhythm abdomen soft, nontender, previous PEG site no erythema, dry extremities no edema gait steady Procedures PEG tube insertion. A/P Problem List: (1) Thrombocytopenia ICD Code: D69.6 - Thrombocytopenia, unspecified (2) Polycythemia ICD Code: D75.1 - Secondary polycythemia (3) CVA (cerebral vascular accident) ICD Code: I63.9 - Cerebral infarction, unspecified (4) Stroke ICD Code: I63.9 - Cerebral infarction, unspecified Status: Acute (5) Incontinence ICD Code: R32 - Unspecified urinary incontinence (6) Cystitis ICD Code: N30.90 - Cystitis, unspecified without hematuria Assessment and Plan 62 years old female S/P CVA , with expressive aphasia and mild right hemiparesis, dysarthria, mild dysphagia- improving- neuro stable Continue with aspirin LDL 36 therefore statin is not indicated PT/OT/speech therapy Appreciate input from neurology Continue current treatment Hypertension Cardiomyopathy- SBPs in the- 2-D echo revealed LVEF of 45%. Continue beta marilou/isa.- decrease Lopresssor to 12.5 mg po bid- - 08/17- DC altogether and monitor solely on ISA - 08/22 continue lisinopril 5 mg daily. monitor and adjust Appreciate input from cardiology who signed off S/P aspiration pneumonia-treated. s/p Augmentin 07/16/17 Hyperammonemia-resolved Continue lactulose daily Monitor ammonia level as needed. Acute hypoxemic respiratory failure- Resolved Continue with DuoNeb when necessary and maintain oxygen saturation above 92% Dysphagia-improving.- good po PEG has been removed. ST ff S/P PEG infection- resolved S/P treatment with Bactrim course f/u with GI as outpatient. History of chronic of chronic benzodiazepine use Advised on cessation Upper GI and rectal bleed - resolved Elevated transaminases Hepatitis C antibody positive Currently on Protonix Appreciate input from GI who signed off s/p EGD with gastritis and esophagitis. HIDA scan 06/28 with distended gallbladder-no evidence of acute cholecystitis s/p PEG placement / removal History of incontinence Resolved Acute kidney injury Resolved Thrombocytopenia resolved. insomnia; ambien as needed. History of chronic pain per patient- on chronic pain meds per PCP per patient will continue on Percocet - change to 10/325 mg po q 6 prn this dose was confirmed with PCP- Dr. Moon's office Prophylaxis - GI - PO Protonix - DVT - SCD/heparin subcutaneous on hold due to GI bleed.- patient up anfd ambulating- idnependent CM- ready for DC if safe disposition- SSI pending- sister won't take her Problem Qualifiers (1) CVA (cerebral vascular accident): Qualified Codes: I63.9 - Cerebral infarction, unspecified (2) Stroke: Qualified Codes: I63.9 - Cerebral infarction, unspecified (3) Incontinence: Qualified Codes: R32 - Unspecified urinary incontinence Sara Greene MD Aug 23, 2017 13:31
[2017-08-23 16:30] VITALS: BP 108/73; PULSE 87; RESP 20; TEMP 97.6; O2SAT 96
[2017-08-23 20:59] VITALS: BP 113/71; PULSE 73; RESP 18; TEMP 97.4; O2SAT 95
[2017-08-23] MEDS: ZOLPIDEM TARTRATE 5 MG TAB PO PRN ×2 (22:37)
[2017-08-24] MEDS: CHLORHEXIDINE GLUCONATE 2 % 1 PACK (2 CLOTHS) TOP SCH ×4 (04:00→23:03)
[2017-08-24] MEDS: guaiFENesin/DEXTROMETHORPHAN 200 MG/20 MG/10 ML CUP PO PRN ×8 (04:31→22:47)
[2017-08-24] MEDS: oxyCODONE/ACETAMINOPHEN 10 MG/325 MG TAB PO PRN ×8 (04:32→22:47)
[2017-08-24] MEDS: ASPIRIN 81 MG CHEW TAB PO SCH ×2 (08:25)
[2017-08-24] MEDS: LISINOPRIL 5 MG TAB PO SCH ×2 (08:25)
[2017-08-24] MEDS: PANTOPRAZOLE SOD 40 MG DELAYED RELEASE TAB PO SCH ×4 (08:25→22:48)
[2017-08-24] MEDS: RIFAXIMIN 550 MG TAB PO SCH ×4 (08:25→22:48)
[2017-08-24] MEDS: LACTULOSE SYRUP 20 GM/30 ML CUP PO SCH ×2 (08:25)
[2017-08-24 08:27] VITALS: BP 115/73; PULSE 18; RESP 18; TEMP 98.2; O2SAT 90
[2017-08-24] MEDS: NEOMYCIN/POLYMYXIN/BACITRACIN OINT 0.9 GM PACKET TOPICAL SCH ×4 (08:29→21:00)
[2017-08-24 08:32] VITALS: PULSE 77; RESP 16; O2SAT 97
[2017-08-24] MEDS: SODIUM CHLORIDE 0.9% FLUSH 10 ML FLUSH IV FLUSH SCH ×4 (09:00→21:00)
[2017-08-24 12:36] VITALS: BP 89/70; PULSE 80; RESP 18; TEMP 97.2; O2SAT 97
--- NOTE | 2017-08-24 15:44 | HHI.PR ---
Subjective Remarks Follow-up visit CVA, expressive aphasia, HTN, aspiration pneumonia. Patient seen and examined today sitting in bed. Notable expressive aphasia and getting frustrated but able to follow commands and answer a few questions. Denies pain and discomfort. Denies SOB/ dyspnea. Denies chest pain, palpitations, headaches, dizziness. Denies fevers, chills, n/v/d. Denies dysuria. Objective Vitals Vital Signs Date Time Temp Pulse Resp B/P (MAP) Pulse Ox O2 Delivery O2 Flow Rate FiO2 08/24/17 12:36 97.2 80 18 89/70 (76) 97 08/24/17 08:32 77 16 97 08/24/17 08:27 98.2 18 18 115/73 (87) 90 08/23/17 20:59 97.4 73 18 113/71 (85) 95 08/23/17 16:30 97.6 87 20 108/73 (85) 96 I/O 08/23/17 08/23/17 08/23/17 08/24/17 08/24/17 08/24/17 07:00 15:00 23:00 07:00 15:00 23:00 Intake Total 480 ml 480 ml Balance 480 ml 480 ml Intake Oral 480 ml 480 ml # Voids 5 2 5 # Bowel Movements 1 1 Imaging Last Impressions Modified Barium Swallow 08/16/17 0000 Signed Impressions: Service Date/Time: Wednesday, August 16, 2017 00:00 - CONCLUSION: Modified barium swallow performed with speech pathology. Karel Ghosh MD Abdomen/Pelvis CT 08/08/17 0000 Signed Impressions: Service Date/Time: Tuesday, August 08, 2017 11:16 - CONCLUSION: PEG tube site remains patent from stomach to the anterior abdominal wall with induration in the rectus. Patchy airspace disease in both lungs. Rudy Meng MD FACR Abdomen X-Ray 08/06/17 0000 Signed Impressions: Service Date/Time: Sunday, August 06, 2017 00:36 - CONCLUSION: PEG tube overlying the left lower abdomen. Christopher Sarmiento MD Chest X-Ray 07/09/17 0000 Signed Impressions: Service Date/Time: Sunday, July 09, 2017 14:04 - CONCLUSION: 1. Stable mild central bibasilar patchy airspace disease. 2. No significant interval change. Gustavo Santoro MD Head CT 07/06/17 0000 Signed Impressions: Service Date/Time: Thursday, July 06, 2017 09:07 - CONCLUSION: 1. 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 2. Mucous retention cyst within left maxillary and right sphenoid sinuses. Juan Pablo Huffman MD Hepatobiliary Scan Nuclear Medicine 06/28/17 0900 Signed Impressions: Service Date/Time: Wednesday, June 28, 2017 10:17 - CONCLUSION: Nonspecific persistent distention of the gallbladder. No evidence of acute cholecystitis or biliary obstruction. Christopher Gutierrez MD Lung Scan-VQ Nuclear Medicine 06/24/17 0000 Signed Impressions: Service Date/Time: Saturday, June 24, 2017 12:21 - CONCLUSION: 1. Low probability of pulmonary embolism Jose Richard MD Head Magnetic Resonance Angiography 06/24/17 0000 Signed Impressions: Service Date/Time: Saturday, June 24, 2017 13:37 - CONCLUSION: Negative for major branch vessels obstruction in spite of MRI findings. Rudy Meng MD FACR Brain MRI 06/24/17 0000 Signed Impressions: Service Date/Time: Saturday, June 24, 2017 13:37 - CONCLUSION: Findings consistent with acute infarct left sylvian region anteriorly without hemorrhage. Rudy Meng MD FACR Carotid Artery Ultrasound 06/22/17 0000 Signed Impressions: Service Date/Time: Thursday, June 22, 2017 15:56 - CONCLUSION: No evidence of flow-limiting carotid stenosis. Christopher Leonardo MD Abdomen Ultrasound 06/22/17 0000 Signed Impressions: Service Date/Time: Thursday, June 22, 2017 16:30 - CONCLUSION: Distended gallbladder with wall thickening and internal debris. Mild calyceal dilatation involving the kidneys bilaterally Christopher Leonardo MD Objective Remarks GENERAL: This is a well-nourished, well-developed patient, in no apparent distress. SKIN: Warm and dry. HEENT: Normocephalic. Pupils equal round and reactive. Nose without bleeding. Airway patent. NECK: Trachea midline. No JVD. Supple. CARDIOVASCULAR: Regular rate and rhythm without murmurs, gallops, or rubs. RESPIRATORY: Diminished bases. No wheezes, rales, or rhonchi. GASTROINTESTINAL: Abdomen soft, non-tender, nondistended. Bowel Sounds normoactive x4. MUSCULOSKELETAL: Extremities without clubbing, cyanosis, or edema. NEUROLOGICAL: Awake and alert. Oriented to place, person. Expressive Aphasia. Moves all extremities. Mild slurred speech. Procedures PEG tube insertion. A/P Problem List: (1) Thrombocytopenia ICD Code: D69.6 - Thrombocytopenia, unspecified (2) Polycythemia ICD Code: D75.1 - Secondary polycythemia (3) CVA (cerebral vascular accident) ICD Code: I63.9 - Cerebral infarction, unspecified (4) Stroke ICD Code: I63.9 - Cerebral infarction, unspecified Status: Acute (5) Incontinence ICD Code: R32 - Unspecified urinary incontinence (6) Cystitis ICD Code: N30.90 - Cystitis, unspecified without hematuria Assessment and Plan Patient is a 62-year-old female who came into the hospital for evaluation and she was unable to get out of her chair and that she had urinated herself, poorly responsive when EMS got her. Acute CVA , with expressive aphasia and mild right hemiparesis, dysarthria, mild dysphagia- improving- neuro stable - Continue with aspirin - LDL 36 therefore statin is not indicated - PT/OT/speech therapy - Neurology following recommends ASA to continue - Continue current treatment Hypertension Cardiomyopathy- SBPs in the-90s - 2-D echo revealed LVEF of 45%. - Continue lisinopril 5mg daily - BB discontinued - Cardiology signed off Course of Hospitalization Problems that had resolved S/P aspiration pneumonia-treated. - s/p Augmentin 07/16/17 Hyperammonemia-resolved Continue lactulose daily Monitor ammonia level as needed. Acute hypoxemic respiratory failure- Resolved Continue with DuoNeb when necessary and maintain oxygen saturation above 92% Dysphagia-improving.- good po PEG has been removed. ST ff S/P PEG infection- resolved S/P treatment with Bactrim course f/u with GI as outpatient. History of chronic of chronic benzodiazepine use Advised on cessation Upper GI and rectal bleed - resolved Elevated transaminases Hepatitis C antibody positive Currently on Protonix Appreciate input from GI who signed off s/p EGD with gastritis and esophagitis. HIDA scan 06/28 with distended gallbladder-no evidence of acute cholecystitis s/p PEG placement / removal History of incontinence Resolved Acute kidney injury Resolved Thrombocytopenia resolved. Prophylaxis - GI - PO Protonix - DVT - SCD/heparin subcutaneous on hold due to GI bleed.- patient up anfd ambulating- independent Problem Qualifiers (1) CVA (cerebral vascular accident): Qualified Codes: I63.9 - Cerebral infarction, unspecified (2) Stroke: Qualified Codes: I63.9 - Cerebral infarction, unspecified (3) Incontinence: Qualified Codes: R32 - Unspecified urinary incontinence Anum York [facility] Aug 24, 2017 15:44
[2017-08-24 17:09] VITALS: BP 113/71; PULSE 85; RESP 18; TEMP 97.2; O2SAT 95
[2017-08-24 21:40] VITALS: BP 101/63; PULSE 76; RESP 19; TEMP 97.2; O2SAT 99
[2017-08-24] MEDS: ZOLPIDEM TARTRATE 5 MG TAB PO PRN ×2 (22:48)
[2017-08-25 01:01] VITALS: BP 97/60; PULSE 78; RESP 18; TEMP 97.9; O2SAT 94
[2017-08-25] MEDS: guaiFENesin/DEXTROMETHORPHAN 200 MG/20 MG/10 ML CUP PO PRN ×6 (04:34→23:02)
[2017-08-25] MEDS: oxyCODONE/ACETAMINOPHEN 10 MG/325 MG TAB PO PRN ×8 (04:35→23:03)
[2017-08-25 05:42] VITALS: BP_SYST 96; PULSE 81; RESP 20; TEMP 97.4; O2SAT 94
[2017-08-25 08:30] VITALS: BP 117/69; PULSE 72; RESP 18; TEMP 97.3; O2SAT 97
[2017-08-25] MEDS: LACTULOSE SYRUP 20 GM/30 ML CUP PO SCH ×2 (08:34)
[2017-08-25] MEDS: RIFAXIMIN 550 MG TAB PO SCH ×4 (08:34→20:43)
[2017-08-25] MEDS: LISINOPRIL 5 MG TAB PO SCH ×2 (08:34)
[2017-08-25] MEDS: SODIUM CHLORIDE 0.9% FLUSH 10 ML FLUSH IV FLUSH SCH ×4 (08:35→20:45)
[2017-08-25] MEDS: PANTOPRAZOLE SOD 40 MG DELAYED RELEASE TAB PO SCH ×4 (08:35→20:43)
[2017-08-25] MEDS: ASPIRIN 81 MG CHEW TAB PO SCH ×2 (08:35)
[2017-08-25] MEDS: NEOMYCIN/POLYMYXIN/BACITRACIN OINT 0.9 GM PACKET TOPICAL SCH ×4 (08:35→20:45)
[2017-08-25 12:24] VITALS: BP 117/76; PULSE 78; RESP 18; TEMP 98.1; O2SAT 97
--- NOTE | 2017-08-25 15:35 | HHI.PR ---
Subjective Remarks Follow-up visit CVA, expressive aphasia, HTN, aspiration pneumonia. Patient seen and examined today. Ambulating inside her room. Expressive aphasia and getting frustrated able to follow commands and answer a few questions. Denies pain and discomfort. Denies SOB/ dyspnea. Denies chest pain, palpitations, headaches, dizziness. Denies fevers, chills, n/v/d. Denies dysuria. Objective Vitals Vital Signs Date Time Temp Pulse Resp B/P (MAP) Pulse Ox O2 Delivery O2 Flow Rate FiO2 08/25/17 12:24 98.1 78 18 117/76 (90) 97 08/25/17 11:40 18 08/25/17 08:30 97.3 72 18 117/69 (85) 97 08/25/17 05:42 97.4 81 20 96/ 94 08/25/17 01:01 97.9 78 18 97/60 (72) 94 08/24/17 21:40 97.2 76 19 101/63 (76) 99 08/24/17 17:09 97.2 85 18 113/71 (85) 95 I/O 08/24/17 08/24/17 08/24/17 08/25/17 08/25/17 08/25/17 07:00 15:00 23:00 07:00 15:00 23:00 Intake Total 1430 ml 480 ml Balance 1430 ml 480 ml Intake Oral 1430 ml 480 ml # Voids 2 7 2 6 # Bowel Movements 1 0 1 Imaging Last Impressions Modified Barium Swallow 08/16/17 0000 Signed Impressions: Service Date/Time: Wednesday, August 16, 2017 00:00 - CONCLUSION: Modified barium swallow performed with speech pathology. Karel Ghosh MD Abdomen/Pelvis CT 08/08/17 0000 Signed Impressions: Service Date/Time: Tuesday, August 08, 2017 11:16 - CONCLUSION: PEG tube site remains patent from stomach to the anterior abdominal wall with induration in the rectus. Patchy airspace disease in both lungs. Rudy Meng MD FACR Abdomen X-Ray 08/06/17 0000 Signed Impressions: Service Date/Time: Sunday, August 06, 2017 00:36 - CONCLUSION: PEG tube overlying the left lower abdomen. Christopher Sarmiento MD Chest X-Ray 07/09/17 0000 Signed Impressions: Service Date/Time: Sunday, July 09, 2017 14:04 - CONCLUSION: 1. Stable mild central bibasilar patchy airspace disease. 2. No significant interval change. Gustavo Santoro MD Head CT 07/06/17 0000 Signed Impressions: Service Date/Time: Thursday, July 06, 2017 09:07 - CONCLUSION: 1. 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 2. Mucous retention cyst within left maxillary and right sphenoid sinuses. Juan Pablo Huffman MD Hepatobiliary Scan Nuclear Medicine 06/28/17 0900 Signed Impressions: Service Date/Time: Wednesday, June 28, 2017 10:17 - CONCLUSION: Nonspecific persistent distention of the gallbladder. No evidence of acute cholecystitis or biliary obstruction. Christopher Gutierrez MD Lung Scan-VQ Nuclear Medicine 06/24/17 0000 Signed Impressions: Service Date/Time: Saturday, June 24, 2017 12:21 - CONCLUSION: 1. Low probability of pulmonary embolism Jose Richard MD Head Magnetic Resonance Angiography 06/24/17 0000 Signed Impressions: Service Date/Time: Saturday, June 24, 2017 13:37 - CONCLUSION: Negative for major branch vessels obstruction in spite of MRI findings. Rudy Meng MD FACR Brain MRI 06/24/17 0000 Signed Impressions: Service Date/Time: Saturday, June 24, 2017 13:37 - CONCLUSION: Findings consistent with acute infarct left sylvian region anteriorly without hemorrhage. Rudy Meng MD FACR Carotid Artery Ultrasound 06/22/17 0000 Signed Impressions: Service Date/Time: Thursday, June 22, 2017 15:56 - CONCLUSION: No evidence of flow-limiting carotid stenosis. Christopher Leonardo MD Abdomen Ultrasound 06/22/17 0000 Signed Impressions: Service Date/Time: Thursday, June 22, 2017 16:30 - CONCLUSION: Distended gallbladder with wall thickening and internal debris. Mild calyceal dilatation involving the kidneys bilaterally Christopher Leonardo MD Objective Remarks GENERAL: This is a well-nourished, well-developed patient, in no apparent distress. SKIN: Warm and dry. HEENT: Normocephalic. Pupils equal round and reactive. Nose without bleeding. Airway patent. NECK: Trachea midline. No JVD. Supple. CARDIOVASCULAR: Regular rate and rhythm without murmurs, gallops, or rubs. RESPIRATORY: Diminished bases. No wheezes, rales, or rhonchi. GASTROINTESTINAL: Abdomen soft, non-tender, nondistended. Bowel Sounds normoactive x4. MUSCULOSKELETAL: Extremities without clubbing, cyanosis, or edema. NEUROLOGICAL: Awake and alert. Oriented to place, person. Expressive Aphasia. Moves all extremities. Mild slurred speech. Procedures PEG tube insertion. A/P Problem List: (1) Thrombocytopenia ICD Code: D69.6 - Thrombocytopenia, unspecified (2) Polycythemia ICD Code: D75.1 - Secondary polycythemia (3) CVA (cerebral vascular accident) ICD Code: I63.9 - Cerebral infarction, unspecified (4) Stroke ICD Code: I63.9 - Cerebral infarction, unspecified Status: Acute (5) Incontinence ICD Code: R32 - Unspecified urinary incontinence (6) Cystitis ICD Code: N30.90 - Cystitis, unspecified without hematuria Assessment and Plan Patient is a 62-year-old female who came into the hospital for evaluation and she was unable to get out of her chair and that she had urinated herself, poorly responsive when EMS got her. Acute CVA , with expressive aphasia and mild right hemiparesis, dysarthria, mild dysphagia- improving- neuro stable - Continue with aspirin - LDL 36 therefore statin is not indicated - PT/OT/speech therapy - Neurology following recommends ASA to continue - Continue current treatment Hypertension Cardiomyopathy- SBPs in the 90s-110s - 2-D echo revealed LVEF of 45%. - Continue lisinopril 5mg daily - BB discontinued - Cardiology signed off Course of Hospitalization Problems that had resolved S/P aspiration pneumonia-treated. - s/p Augmentin 07/16/17 Hyperammonemia-resolved Continue lactulose daily Monitor ammonia level as needed. Acute hypoxemic respiratory failure- Resolved Continue with DuoNeb when necessary and maintain oxygen saturation above 92% Dysphagia-improving.- good po PEG has been removed. ST ff S/P PEG infection- resolved S/P treatment with Bactrim course f/u with GI as outpatient. History of chronic of chronic benzodiazepine use Advised on cessation Upper GI and rectal bleed - resolved Elevated transaminases Hepatitis C antibody positive Currently on Protonix Appreciate input from GI who signed off s/p EGD with gastritis and esophagitis. HIDA scan 06/28 with distended gallbladder-no evidence of acute cholecystitis s/p PEG placement / removal History of incontinence Resolved Acute kidney injury Resolved Thrombocytopenia resolved. Prophylaxis - GI - PO Protonix - DVT - SCD/heparin subcutaneous on hold due to GI bleed.- patient up and ambulating- independent Discharge Planning Difficult placement. Family members sisters and brother does not want the patient to live with them. Patient is ambulatory a need to be placed in either skilled nursing, hotel or public housing. Will consult and verify with CM. Problem Qualifiers (1) CVA (cerebral vascular accident): Qualified Codes: I63.9 - Cerebral infarction, unspecified (2) Stroke: Qualified Codes: I63.9 - Cerebral infarction, unspecified (3) Incontinence: Qualified Codes: R32 - Unspecified urinary incontinence Anum York Aug 25, 2017 15:35
[2017-08-25 16:14] VITALS: BP 106/61; PULSE 86; RESP 18; TEMP 97.6; O2SAT 94
[2017-08-25 20:50] VITALS: BP 101/62; PULSE 77; RESP 16; TEMP 98
[2017-08-25] MEDS: ZOLPIDEM TARTRATE 5 MG TAB PO PRN ×2 (23:03)
[2017-08-26] MEDS: CHLORHEXIDINE GLUCONATE 2 % 1 PACK (2 CLOTHS) TOP SCH ×2 (04:00)
[2017-08-26] MEDS: oxyCODONE/ACETAMINOPHEN 10 MG/325 MG TAB PO PRN ×8 (05:56→23:52)
[2017-08-26] MEDS: guaiFENesin/DEXTROMETHORPHAN 200 MG/20 MG/10 ML CUP PO PRN ×4 (06:28→20:58)
[2017-08-26 08:24] VITALS: BP 105/72; PULSE 89; RESP 16; TEMP 98.1; O2SAT 95
[2017-08-26] MEDS: NEOMYCIN/POLYMYXIN/BACITRACIN OINT 0.9 GM PACKET TOPICAL SCH ×4 (09:00→21:00)
[2017-08-26] MEDS: SODIUM CHLORIDE 0.9% FLUSH 10 ML FLUSH IV FLUSH SCH ×4 (09:00→21:00)
[2017-08-26] MEDS: LACTULOSE SYRUP 20 GM/30 ML CUP PO SCH ×2 (09:39)
[2017-08-26] MEDS: PANTOPRAZOLE SOD 40 MG DELAYED RELEASE TAB PO SCH ×4 (09:39→20:58)
[2017-08-26] MEDS: RIFAXIMIN 550 MG TAB PO SCH ×4 (09:40→20:58)
[2017-08-26] MEDS: ASPIRIN 81 MG CHEW TAB PO SCH ×2 (09:40)
[2017-08-26] MEDS: LISINOPRIL 5 MG TAB PO SCH ×2 (09:40)
[2017-08-26 12:26] VITALS: BP 111/78; PULSE 98; RESP 16; TEMP 97.3; O2SAT 93
--- NOTE | 2017-08-26 17:03 | HHI.PR ---
Subjective Remarks Follow-up visit CVA, expressive aphasia, HTN, aspiration pneumonia. Patient seen and examined today. Expressive aphasia, able to follow commands and answer questions. Appears to understand what is going on. Discuss with patient possible plan for placement. States she is waiting for her friend, Tuesday to talk to case management. Denies pain and discomfort. Denies SOB/ dyspnea. Denies chest pain, palpitations, headaches, dizziness. Denies fevers, chills, n/v/d. Denies dysuria. Objective Vitals Vital Signs Date Time Temp Pulse Resp B/P (MAP) Pulse Ox O2 Delivery O2 Flow Rate FiO2 08/26/17 12:26 97.3 98 16 111/78 (89) 93 08/26/17 08:24 98.1 89 16 105/72 (83) 95 08/25/17 20:50 98.0 77 16 101/62 (75) 08/25/17 17:50 18 I/O 08/25/17 08/25/17 08/25/17 08/26/17 08/26/17 08/26/17 07:00 15:00 23:00 07:00 15:00 23:00 Intake Total 480 ml Balance 480 ml Intake Oral 480 ml # Voids 2 6 2 # Bowel Movements 0 1 1 Imaging Last Impressions Modified Barium Swallow 08/16/17 0000 Signed Impressions: Service Date/Time: Wednesday, August 16, 2017 00:00 - CONCLUSION: Modified barium swallow performed with speech pathology. Karel Ghosh MD Abdomen/Pelvis CT 08/08/17 0000 Signed Impressions: Service Date/Time: Tuesday, August 08, 2017 11:16 - CONCLUSION: PEG tube site remains patent from stomach to the anterior abdominal wall with induration in the rectus. Patchy airspace disease in both lungs. Rudy Meng MD FACR Abdomen X-Ray 08/06/17 0000 Signed Impressions: Service Date/Time: Sunday, August 06, 2017 00:36 - CONCLUSION: PEG tube overlying the left lower abdomen. Christopher Sarmiento MD Chest X-Ray 07/09/17 0000 Signed Impressions: Service Date/Time: Sunday, July 09, 2017 14:04 - CONCLUSION: 1. Stable mild central bibasilar patchy airspace disease. 2. No significant interval change. Gustavo Santoro MD Head CT 07/06/17 0000 Signed Impressions: Service Date/Time: Thursday, July 06, 2017 09:07 - CONCLUSION: 1. 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 2. Mucous retention cyst within left maxillary and right sphenoid sinuses. Juan Pablo Huffman MD Hepatobiliary Scan Nuclear Medicine 06/28/17 0900 Signed Impressions: Service Date/Time: Wednesday, June 28, 2017 10:17 - CONCLUSION: Nonspecific persistent distention of the gallbladder. No evidence of acute cholecystitis or biliary obstruction. Christopher Gutierrez MD Lung Scan-VQ Nuclear Medicine 06/24/17 0000 Signed Impressions: Service Date/Time: Saturday, June 24, 2017 12:21 - CONCLUSION: 1. Low probability of pulmonary embolism Jose Richard MD Head Magnetic Resonance Angiography 06/24/17 0000 Signed Impressions: Service Date/Time: Saturday, June 24, 2017 13:37 - CONCLUSION: Negative for major branch vessels obstruction in spite of MRI findings. Rudy Meng MD FACR Brain MRI 06/24/17 0000 Signed Impressions: Service Date/Time: Saturday, June 24, 2017 13:37 - CONCLUSION: Findings consistent with acute infarct left sylvian region anteriorly without hemorrhage. Rudy Meng MD FACR Carotid Artery Ultrasound 06/22/17 0000 Signed Impressions: Service Date/Time: Thursday, June 22, 2017 15:56 - CONCLUSION: No evidence of flow-limiting carotid stenosis. Christopher Leonardo MD Abdomen Ultrasound 06/22/17 0000 Signed Impressions: Service Date/Time: Thursday, June 22, 2017 16:30 - CONCLUSION: Distended gallbladder with wall thickening and internal debris. Mild calyceal dilatation involving the kidneys bilaterally Christopher Leonardo MD Objective Remarks GENERAL: This is a thin appearing, well-developed patient, in no apparent distress. SKIN: Warm and dry. HEENT: Normocephalic. Pupils equal round and reactive. Nose without bleeding. Airway patent. NECK: Trachea midline. No JVD. Supple. CARDIOVASCULAR: Regular rate and rhythm without murmurs, gallops, or rubs. RESPIRATORY: Diminished bases. No wheezes, rales, or rhonchi. GASTROINTESTINAL: Abdomen soft, non-tender, nondistended. Bowel Sounds normoactive x4. MUSCULOSKELETAL: Extremities without clubbing, cyanosis, or edema. NEUROLOGICAL: Awake and alert. Oriented to place, person. Expressive Aphasia. Moves all extremities. Mild slurred speech. Procedures PEG tube insertion. A/P Problem List: (1) Thrombocytopenia ICD Code: D69.6 - Thrombocytopenia, unspecified (2) Polycythemia ICD Code: D75.1 - Secondary polycythemia (3) CVA (cerebral vascular accident) ICD Code: I63.9 - Cerebral infarction, unspecified (4) Stroke ICD Code: I63.9 - Cerebral infarction, unspecified Status: Acute (5) Incontinence ICD Code: R32 - Unspecified urinary incontinence (6) Cystitis ICD Code: N30.90 - Cystitis, unspecified without hematuria Assessment and Plan Patient is a 62-year-old female who came into the hospital for evaluation and she was unable to get out of her chair and that she had urinated herself, poorly responsive when EMS got her. Acute CVA , with expressive aphasia and mild right hemiparesis, dysarthria, mild dysphagia- improving- neuro stable - Continue with aspirin - LDL 36 therefore statin is not indicated - PT/OT/speech therapy following - patient has been ambulatory and walking around. Able to do safety evaluation. - Neurology recommends ASA to continue - Continue current treatment - Discuss with patient possible placement. Awaiting for friend to come Tuesday to speak with case management. - Neurology for neurological assessment of capacity - executive function, cognitive function. Consult neurology on Tuesday to evaluate. Hypertension Cardiomyopathy- SBPs in the 90s-110s - 2-D echo revealed LVEF of 45%. - Continue lisinopril 5mg daily - BB discontinued - Cardiology signed off Course of Hospitalization Problems that had resolved S/P aspiration pneumonia-treated. - s/p Augmentin 07/16/17 Hyperammonemia-resolved Continue lactulose daily Monitor ammonia level as needed. Acute hypoxemic respiratory failure- Resolved Continue with DuoNeb when necessary and maintain oxygen saturation above 92% Dysphagia-improving.- good po PEG has been removed. ST ff S/P PEG infection- resolved S/P treatment with Bactrim course f/u with GI as outpatient. History of chronic of chronic benzodiazepine use Advised on cessation Upper GI and rectal bleed - resolved Elevated transaminases Hepatitis C antibody positive Currently on Protonix Appreciate input from GI who signed off s/p EGD with gastritis and esophagitis. HIDA scan 06/28 with distended gallbladder-no evidence of acute cholecystitis s/p PEG placement / removal History of incontinence Resolved Acute kidney injury Resolved Thrombocytopenia resolved. Prophylaxis - GI - PO Protonix - DVT - SCD/heparin subcutaneous on hold due to GI bleed.- patient up and ambulating- independent Discharge Planning Difficult placement. Family members sisters and brother does not want the patient to live with them. Patient is ambulatory a need to be placed in either penitentiary, hotel or public housing. Will consult and verify with CM. Will need complete neurological assessment. Problem Qualifiers (1) CVA (cerebral vascular accident): Qualified Codes: I63.9 - Cerebral infarction, unspecified (2) Stroke: Qualified Codes: I63.9 - Cerebral infarction, unspecified (3) Incontinence: Qualified Codes: R32 - Unspecified urinary incontinence Anum York Aug 26, 2017 17:03
[2017-08-26 18:30] VITALS: BP 122/67; PULSE 76; RESP 18; TEMP 97.8; O2SAT 96
[2017-08-26 19:00] VITALS: BP 96/58; PULSE 91; RESP 16; TEMP 97.3; O2SAT 91
[2017-08-26] MEDS: ZOLPIDEM TARTRATE 5 MG TAB PO PRN ×2 (23:52)
[2017-08-27 04:00] VITALS: BP 118/57; PULSE 88; RESP 24; TEMP 97.5; O2SAT 98
[2017-08-27] MEDS: CHLORHEXIDINE GLUCONATE 2 % 1 PACK (2 CLOTHS) TOP SCH ×2 (04:15)
[2017-08-27] MEDS: guaiFENesin/DEXTROMETHORPHAN 200 MG/20 MG/10 ML CUP PO PRN ×8 (05:35→23:18)
[2017-08-27] MEDS: oxyCODONE/ACETAMINOPHEN 10 MG/325 MG TAB PO PRN ×8 (05:35→23:18)
[2017-08-27] MEDS: ASPIRIN 81 MG CHEW TAB PO SCH ×2 (07:53)
[2017-08-27] MEDS: LACTULOSE SYRUP 20 GM/30 ML CUP PO SCH ×2 (07:53)
[2017-08-27] MEDS: PANTOPRAZOLE SOD 40 MG DELAYED RELEASE TAB PO SCH ×4 (07:53→21:34)
[2017-08-27] MEDS: RIFAXIMIN 550 MG TAB PO SCH ×4 (07:53→21:34)
[2017-08-27] MEDS: SODIUM CHLORIDE 0.9% FLUSH 10 ML FLUSH IV FLUSH SCH ×4 (07:54→21:35)
[2017-08-27] MEDS: LISINOPRIL 5 MG TAB PO SCH ×2 (07:54)
[2017-08-27] MEDS: NEOMYCIN/POLYMYXIN/BACITRACIN OINT 0.9 GM PACKET TOPICAL SCH ×4 (07:54→23:21)
[2017-08-27 08:00] VITALS: BP 111/72; PULSE 79; RESP 18; TEMP 97.9; O2SAT 95
--- NOTE | 2017-08-27 10:33 | HHI.PR ---
Subjective Remarks Patient seen and examined today. Her vitals are stable and the patient's afebrile. Ambulatory around the halls without issues. She overall feels well. Wants to know if she can have cough drops because at times she has coughing episodes. She is eating lunch. Denies CP. Expressive aphasia noted. Objective Vital Signs Date Time Temp Pulse Resp B/P (MAP) Pulse Ox O2 Delivery O2 Flow Rate FiO2 08/27/17 08:00 97.9 79 18 111/72 (85) 95 08/27/17 04:00 97.5 88 24 118/57 (77) 98 08/26/17 19:00 97.3 91 16 96/58 (71) 91 08/26/17 18:30 97.8 76 18 122/67 (85) 96 08/26/17 12:26 97.3 98 16 111/78 (89) 93 I/O 08/26/17 08/26/17 08/26/17 08/27/17 08/27/17 08/27/17 07:00 15:00 23:00 07:00 15:00 23:00 Intake Total 360 ml Balance 360 ml Intake Oral 360 ml # Voids 2 1 # Bowel Movements 1 Imaging Last Impressions Modified Barium Swallow 08/16/17 0000 Signed Impressions: Service Date/Time: Wednesday, August 16, 2017 00:00 - CONCLUSION: Modified barium swallow performed with speech pathology. Karel Ghosh MD Abdomen/Pelvis CT 08/08/17 0000 Signed Impressions: Service Date/Time: Tuesday, August 08, 2017 11:16 - CONCLUSION: PEG tube site remains patent from stomach to the anterior abdominal wall with induration in the rectus. Patchy airspace disease in both lungs. Rudy Meng MD FACR Abdomen X-Ray 08/06/17 0000 Signed Impressions: Service Date/Time: Sunday, August 06, 2017 00:36 - CONCLUSION: PEG tube overlying the left lower abdomen. Christopher Sarmiento MD Chest X-Ray 07/09/17 0000 Signed Impressions: Service Date/Time: Sunday, July 09, 2017 14:04 - CONCLUSION: 1. Stable mild central bibasilar patchy airspace disease. 2. No significant interval change. Gustavo Santoro MD Head CT 07/06/17 0000 Signed Impressions: Service Date/Time: Thursday, July 06, 2017 09:07 - CONCLUSION: 1. 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 2. Mucous retention cyst within left maxillary and right sphenoid sinuses. Juan Pablo Huffman MD Hepatobiliary Scan Nuclear Medicine 06/28/17 0900 Signed Impressions: Service Date/Time: Wednesday, June 28, 2017 10:17 - CONCLUSION: Nonspecific persistent distention of the gallbladder. No evidence of acute cholecystitis or biliary obstruction. Christopher Gutierrez MD Lung Scan-VQ Nuclear Medicine 06/24/17 0000 Signed Impressions: Service Date/Time: Saturday, June 24, 2017 12:21 - CONCLUSION: 1. Low probability of pulmonary embolism Jose Richard MD Head Magnetic Resonance Angiography 06/24/17 0000 Signed Impressions: Service Date/Time: Saturday, June 24, 2017 13:37 - CONCLUSION: Negative for major branch vessels obstruction in spite of MRI findings. Rudy Meng MD FACR Brain MRI 06/24/17 0000 Signed Impressions: Service Date/Time: Saturday, June 24, 2017 13:37 - CONCLUSION: Findings consistent with acute infarct left sylvian region anteriorly without hemorrhage. Rudy Meng MD FACR Carotid Artery Ultrasound 06/22/17 0000 Signed Impressions: Service Date/Time: Thursday, June 22, 2017 15:56 - CONCLUSION: No evidence of flow-limiting carotid stenosis. Christopher Leonardo MD Abdomen Ultrasound 06/22/17 0000 Signed Impressions: Service Date/Time: Thursday, June 22, 2017 16:30 - CONCLUSION: Distended gallbladder with wall thickening and internal debris. Mild calyceal dilatation involving the kidneys bilaterally Christopher Leonardo MD Objective Remarks GENERAL: well appearing, and SKIN: Warm and dry. HEAD: Normocephalic. EYES: No scleral icterus. No injection or drainage. NECK: Supple, trachea midline. No JVD or lymphadenopathy. CARDIOVASCULAR: Regular rate and rhythm without murmurs, gallops, or rubs. RESPIRATORY: Breath sounds equal bilaterally. No accessory muscle use. GASTROINTESTINAL: Abdomen soft, non-tender, nondistended. MUSCULOSKELETAL: No cyanosis, or edema. No calf tenderness. Neuro: moves all extremities without difficulty, expressive aphasia. A/P Problem List: (1) CVA (cerebral vascular accident) ICD Code: I63.9 - Cerebral infarction, unspecified (2) Cardiomyopathy ICD Code: I42.9 - Cardiomyopathy, unspecified Assessment and Plan This is a 62-year-old female patient was initially admitted as a short failure. She was intubated by EMS at the scene. She was found to have a CVA. She had an ICU course. She has been subsequently extubated and has been managed by the hospitalist service. She was found to have a GI bleed also in difficulty swallowing. She has been seen and evaluated by GI and had a PEG tube placed that is only being used as needed. Patient also hep C positive with a viral load greater than 3 million, genotype IIb. Acute CVA , with expressive aphasia and mild right hemiparesis, dysarthria, mild dysphagia- improving- neuro stable - Continue with aspirin - LDL 36 therefore statin is not indicated - PT/OT/speech therapy following - patient has been ambulatory and walking around. Able to do safety evaluation. - Neurology recommends ASA to continue - Continue current treatment - Discuss with patient possible placement. Awaiting for friend to come Tuesday to speak with case management. - Neurology for neurological assessment of capacity - executive function, cognitive function. Consult neuropsych on Tuesday to evaluate. Hypertension Cardiomyopathy- SBPs in the 90s-110s - 2-D echo revealed LVEF of 45%. - Continue lisinopril 5mg daily - BB discontinued - Cardiology signed off Course of Hospitalization Problems that have resolved S/P aspiration pneumonia-treated. - s/p Augmentin 07/16/17 Hyperammonemia-resolved Continue lactulose daily Monitor ammonia level as needed. Acute hypoxemic respiratory failure- Resolved Continue with DuoNeb when necessary and maintain oxygen saturation above 92% Dysphagia-improving.- good po PEG has been removed. ST ff S/P PEG infection- resolved S/P treatment with Bactrim course f/u with GI as outpatient. History of chronic of chronic benzodiazepine use Advised on cessation Upper GI and rectal bleed - resolved Elevated transaminases Hepatitis C antibody positive Currently on Protonix Appreciate input from GI who signed off s/p EGD with gastritis and esophagitis. HIDA scan 06/28 with distended gallbladder-no evidence of acute cholecystitis s/p PEG placement / removal History of incontinence Resolved Acute kidney injury Resolved Thrombocytopenia resolved. Prophylaxis - GI - PO Protonix - DVT - SCD/heparin subcutaneous on hold due to GI bleed.- patient up and ambulating- independent Discharge Planning Difficult placement. Family members sisters and brother does not want the patient to live with them. Patient is ambulatory a need to be placed in either penitentiary, hotel or public housing. Will consult and verify with CM. Will need complete neurological assessment. Problem Qualifiers (1) CVA (cerebral vascular accident): Qualified Codes: I63.9 - Cerebral infarction, unspecified Luana Ortez MD Aug 27, 2017 10:33
[2017-08-27 12:00] VITALS: BP 117/62; PULSE 78; RESP 18; TEMP 97.1; O2SAT 96
[2017-08-27 16:00] VITALS: BP 115/69; PULSE 70; RESP 19; TEMP 98; O2SAT 95
[2017-08-27 20:52] VITALS: BP 113/68; PULSE 87; RESP 20; TEMP 97.4; O2SAT 98
[2017-08-27] MEDS: ZOLPIDEM TARTRATE 5 MG TAB PO PRN ×2 (23:18)
[2017-08-28 00:23] VITALS: BP 97/58; PULSE 95; RESP 18; TEMP 98; O2SAT 100
[2017-08-28] MEDS: CHLORHEXIDINE GLUCONATE 2 % 1 PACK (2 CLOTHS) TOP SCH ×2 (04:00)
[2017-08-28] MEDS: oxyCODONE/ACETAMINOPHEN 10 MG/325 MG TAB PO PRN ×8 (05:01→22:42)
[2017-08-28] MEDS: guaiFENesin/DEXTROMETHORPHAN 200 MG/20 MG/10 ML CUP PO PRN ×8 (05:01→22:42)
[2017-08-28] MEDS: NEOMYCIN/POLYMYXIN/BACITRACIN OINT 0.9 GM PACKET TOPICAL SCH ×4 (07:48→21:36)
[2017-08-28] MEDS: LACTULOSE SYRUP 20 GM/30 ML CUP PO SCH ×2 (07:48)
[2017-08-28] MEDS: RIFAXIMIN 550 MG TAB PO SCH ×4 (07:48→21:36)
[2017-08-28] MEDS: ASPIRIN 81 MG CHEW TAB PO SCH ×2 (07:48)
[2017-08-28] MEDS: PANTOPRAZOLE SOD 40 MG DELAYED RELEASE TAB PO SCH ×4 (07:48→21:36)
[2017-08-28] MEDS: LISINOPRIL 5 MG TAB PO SCH ×2 (07:48)
[2017-08-28] MEDS: SODIUM CHLORIDE 0.9% FLUSH 10 ML FLUSH IV FLUSH SCH ×4 (07:48→21:00)
[2017-08-28 08:15] VITALS: BP 104/65; PULSE 66; RESP 20; TEMP 97.9; O2SAT 97
--- NOTE | 2017-08-28 10:09 | HHI.PR ---
Subjective Remarks Patient seen and examined today. Her vitals are stable and the patient's afebrile. Ambulatory around the halls without issues. She overall feels well. States on Tuesday she hopes to find out where she can stay. Objective Vital Signs Date Time Temp Pulse Resp B/P (MAP) Pulse Ox O2 Delivery O2 Flow Rate FiO2 08/28/17 08:15 97.9 66 20 104/65 (78) 97 08/28/17 00:23 98.0 95 18 97/58 (71) 100 08/27/17 20:52 97.4 87 20 113/68 (83) 98 08/27/17 16:00 98.0 70 19 115/69 (84) 95 08/27/17 12:00 97.1 78 18 117/62 (80) 96 I/O 08/27/17 08/27/17 08/27/17 08/28/17 08/28/17 08/28/17 07:00 15:00 23:00 07:00 15:00 23:00 Intake Total 360 ml 360 ml 480 ml Balance 360 ml 360 ml 480 ml Intake Oral 360 ml 360 ml 480 ml # Voids 1 3 # Bowel Movements 1 Imaging Last Impressions Modified Barium Swallow 08/16/17 0000 Signed Impressions: Service Date/Time: Wednesday, August 16, 2017 00:00 - CONCLUSION: Modified barium swallow performed with speech pathology. Karel Ghosh MD Abdomen/Pelvis CT 08/08/17 0000 Signed Impressions: Service Date/Time: Tuesday, August 08, 2017 11:16 - CONCLUSION: PEG tube site remains patent from stomach to the anterior abdominal wall with induration in the rectus. Patchy airspace disease in both lungs. Rudy Meng MD FACR Abdomen X-Ray 08/06/17 0000 Signed Impressions: Service Date/Time: Sunday, August 06, 2017 00:36 - CONCLUSION: PEG tube overlying the left lower abdomen. Christopher Sarmiento MD Chest X-Ray 07/09/17 0000 Signed Impressions: Service Date/Time: Sunday, July 09, 2017 14:04 - CONCLUSION: 1. Stable mild central bibasilar patchy airspace disease. 2. No significant interval change. Gustavo Santoro MD Head CT 07/06/17 0000 Signed Impressions: Service Date/Time: Thursday, July 06, 2017 09:07 - CONCLUSION: 1. 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 2. Mucous retention cyst within left maxillary and right sphenoid sinuses. Juan Pablo Huffman MD Hepatobiliary Scan Nuclear Medicine 06/28/17 0900 Signed Impressions: Service Date/Time: Wednesday, June 28, 2017 10:17 - CONCLUSION: Nonspecific persistent distention of the gallbladder. No evidence of acute cholecystitis or biliary obstruction. Christopher Gutierrez MD Lung Scan-VQ Nuclear Medicine 06/24/17 0000 Signed Impressions: Service Date/Time: Saturday, June 24, 2017 12:21 - CONCLUSION: 1. Low probability of pulmonary embolism Jose Richard MD Head Magnetic Resonance Angiography 06/24/17 0000 Signed Impressions: Service Date/Time: Saturday, June 24, 2017 13:37 - CONCLUSION: Negative for major branch vessels obstruction in spite of MRI findings. Rudy Meng MD FACR Brain MRI 06/24/17 0000 Signed Impressions: Service Date/Time: Saturday, June 24, 2017 13:37 - CONCLUSION: Findings consistent with acute infarct left sylvian region anteriorly without hemorrhage. Rudy Meng MD FACR Carotid Artery Ultrasound 06/22/17 0000 Signed Impressions: Service Date/Time: Thursday, June 22, 2017 15:56 - CONCLUSION: No evidence of flow-limiting carotid stenosis. Christopher Leonardo MD Abdomen Ultrasound 06/22/17 0000 Signed Impressions: Service Date/Time: Thursday, June 22, 2017 16:30 - CONCLUSION: Distended gallbladder with wall thickening and internal debris. Mild calyceal dilatation involving the kidneys bilaterally Christopher Leonardo MD Objective Remarks GENERAL: well appearing, and SKIN: Warm and dry. HEAD: Normocephalic. EYES: No scleral icterus. No injection or drainage. NECK: Supple, trachea midline. No JVD or lymphadenopathy. CARDIOVASCULAR: Regular rate and rhythm without murmurs, gallops, or rubs. RESPIRATORY: Breath sounds equal bilaterally. No accessory muscle use. GASTROINTESTINAL: Abdomen soft, non-tender, nondistended. MUSCULOSKELETAL: No cyanosis, or edema. No calf tenderness. Neuro: moves all extremities without difficulty, expressive aphasia. A/P Problem List: (1) CVA (cerebral vascular accident) ICD Code: I63.9 - Cerebral infarction, unspecified (2) Cardiomyopathy ICD Code: I42.9 - Cardiomyopathy, unspecified Assessment and Plan This is a 62-year-old female patient was initially admitted as a short failure. She was intubated by EMS at the scene. She was found to have a CVA. She had an ICU course. She has been subsequently extubated and has been managed by the hospitalist service. She was found to have a GI bleed also in difficulty swallowing. She has been seen and evaluated by GI and had a PEG tube placed that is only being used as needed. Patient also hep C positive with a viral load greater than 3 million, genotype IIb. Acute CVA , with expressive aphasia and mild right hemiparesis, dysarthria, mild dysphagia- improving- neuro stable - Continue with aspirin - LDL 36 therefore statin is not indicated - PT/OT/speech therapy following - patient has been ambulatory and walking around. Able to do safety evaluation. - Neurology recommends ASA to continue - Continue current treatment - Discuss with patient possible placement. Awaiting for friend to come Tuesday to speak with case management. - Neurolopsych for neurological assessment of capacity - executive function, cognitive function. Consult neuropsych on Tuesday to evaluate. Hypertension Cardiomyopathy- SBPs in the 90s-110s - 2-D echo revealed LVEF of 45%. - Continue lisinopril 5mg daily - BB discontinued - Cardiology signed off Course of Hospitalization Problems that have resolved S/P aspiration pneumonia-treated. - s/p Augmentin 07/16/17 Hyperammonemia-resolved Continue lactulose daily Monitor ammonia level as needed. Acute hypoxemic respiratory failure- Resolved Continue with DuoNeb when necessary and maintain oxygen saturation above 92% Dysphagia-improving.- good po PEG has been removed. ST ff S/P PEG infection- resolved S/P treatment with Bactrim course f/u with GI as outpatient. History of chronic of chronic benzodiazepine use Advised on cessation Upper GI and rectal bleed - resolved Elevated transaminases Hepatitis C antibody positive Currently on Protonix Appreciate input from GI who signed off s/p EGD with gastritis and esophagitis. HIDA scan 06/28 with distended gallbladder-no evidence of acute cholecystitis s/p PEG placement / removal History of incontinence Resolved Acute kidney injury Resolved Thrombocytopenia resolved. Prophylaxis - GI - PO Protonix - DVT - SCD/heparin subcutaneous on hold due to GI bleed.- patient up and ambulating- independent Discharge Planning Difficult placement. Family members sisters and brother does not want the patient to live with them. Patient is ambulatory a need to be placed in either [facility], hotel or public housing. Will consult and verify with CM. Will need complete neurological assessment. Problem Qualifiers (1) CVA (cerebral vascular accident): Qualified Codes: I63.9 - Cerebral infarction, unspecified Luana Ortez MD Aug 28, 2017 10:09
[2017-08-28 12:16] VITALS: BP 116/70; PULSE 74; RESP 20; TEMP 97.6; O2SAT 95
[2017-08-28 17:17] VITALS: BP 114/79; PULSE 90; RESP 20; TEMP 97.3; O2SAT 94
[2017-08-28 20:00] VITALS: BP 117/67; PULSE 73; RESP 18; TEMP 97.6; O2SAT 98
[2017-08-28] MEDS: ZOLPIDEM TARTRATE 5 MG TAB PO PRN ×2 (23:23)
[2017-08-29] VITALS: BP 124/57; PULSE 88; RESP 18; TEMP 98.1; O2SAT 97
[2017-08-29] MEDS: CHLORHEXIDINE GLUCONATE 2 % 1 PACK (2 CLOTHS) TOP SCH ×2 (03:44)
[2017-08-29 04:00] VITALS: BP 126/70; PULSE 85; RESP 20; TEMP 97.3; O2SAT 91
[2017-08-29] MEDS: oxyCODONE/ACETAMINOPHEN 10 MG/325 MG TAB PO PRN ×8 (05:03→23:17)
[2017-08-29 08:09] VITALS: BP 119/77; PULSE 79; RESP 20; TEMP 97.4; O2SAT 95
[2017-08-29] MEDS: LISINOPRIL 5 MG TAB PO SCH ×2 (08:22)
[2017-08-29] MEDS: LACTULOSE SYRUP 20 GM/30 ML CUP PO SCH ×2 (08:22)
[2017-08-29] MEDS: guaiFENesin/DEXTROMETHORPHAN 200 MG/20 MG/10 ML CUP PO PRN ×6 (08:22→23:20)
[2017-08-29] MEDS: RIFAXIMIN 550 MG TAB PO SCH ×4 (08:22→20:30)
[2017-08-29] MEDS: ASPIRIN 81 MG CHEW TAB PO SCH ×2 (08:22)
[2017-08-29] MEDS: PANTOPRAZOLE SOD 40 MG DELAYED RELEASE TAB PO SCH ×4 (08:22→20:30)
[2017-08-29] MEDS: NEOMYCIN/POLYMYXIN/BACITRACIN OINT 0.9 GM PACKET TOPICAL SCH ×4 (08:27→20:33)
[2017-08-29] MEDS: SODIUM CHLORIDE 0.9% FLUSH 10 ML FLUSH IV FLUSH SCH ×4 (08:27→21:00)
--- NOTE | 2017-08-29 10:52 | PD.HHIRCNE ---
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 Since her admission, she has improved from a physical standpoint, and is now ambulating independently. However, she continues to exhibit expressive aphasic deficits which further attenuates her higher cognitive functioning. 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 She does have a prior history of THC abuse. She is referred for baseline neurobehavioral status examination to assess cognitive, behavioral and emotional aspects of the injury and to provide treatment recommendations. Neuropsych Precautions: Neurocognitive issues. Past Surgical/Medical History Major surgery in last 100 days: No Hx Abdominal Surgery: Yes Hx of Respiratory Problem: Yes (COPD) Mental Status Assessment Orientation: oriented to Self, oriented to Place, oriented to Time, oriented to Situation Mental Status: WFL: Attention, Learning/Memory, Problem-Solving, Impaired: Thought processing, Language/Interactions Observation The patient is alert and oriented to person, place, time and circumstances surrounding the reason for hospitalization. In terms of attention skills, the patient was able to remain on task and remember basic and complex instructions. In terms of memory functioning, the patient was able to remember two of three words after a brief period of time, and she was also able to demonstrate good carryover of information throughout the brief evaluation. The patient initiated spontaneous conversation. However, her speech was characterized by impairments of grammar, articulation and rate. Dysnomic errors were prevalent in her conversational speech. Basic naming skills were marginally intact on confrontation naming tasks. Language repetition skills were not intact. The patients comprehensions for basic one- and two-stage commands were intact but not for more complex information. The patient was able to read simple sentences and write simple words, but as would be expected, her ability to write more complex sentences was impaired. Basic verbal abstraction and problem -solving skills borderline normal. The patient appears to posses improving insight and awareness into their situation and within the limits of this brief evaluation, improving judgment. Impression Mild residual neurocognitive deficits. Adjustment/Coping Assessment Adjustment/Coping: None: Depression, Anxiety, Pain, Apathy, Mild: Awareness, Insight Observation The patients thought content was free from suicidal, homicidal or paranoid ideation, and the patients thought processes were logical and goal-directed. The patients mood was euthymic but somewhat anxious concerning her discharge, and her affect was worrisome. LTG Status: Deferred STG Status: Deferred Team Members: Neuropsychologist Behavior Assessment Agitation: None Treatment Engagement: Average Observation Behaviorally, the patient demonstrated no signs of agitation, impulsivity or disinhibition. There was no remarkable evidence of a formal thought disorder or psychosis. LTG - Status: Deferred STG Status: Deferred Team Members: Neuropsychologist Diagnosis/Discharge Plan Impression The patient is a 62 year old woman s/p left CVA with residual right hemiparesis and expressive aphasia. Although her neurocognitive recovery is not complete, her recovery is sufficient to conclude that she does possess the requisite cognitive capacity to make basic decisions of a legal, financial and medical nature at this point. She is appropriate to return to a home setting but will require supervision for bill pay and high level ADLs. Diagnosis: (1) Mild neurocognitive disorder (2) CVA (cerebral vascular accident) Maximizing acute care outcome At this point in the recovery process, this patient does appear to have the cognitive capacity as the patient is able to understand a situation and its likely consequences, and she is able to manipulate most information rationally, although she would benefit from supervision for higher level ADLs . Discharge Planning Anticipated Problems Ongoing areas of concern will include anxiety and dysphoria issues which are expected to improve with time and treatment. Treatment Plan This clinician will continue to follow with you throughout the course of this patients acute care treatment, and I will be available to meet with the patient s family/support system to facilitate their understanding and the ongoing care of their family member. The goals of neuropsychological intervention shall be both educational and supportive to the family/support system as is deemed clinically appropriate. Discharge Needs To be determined. Thank you Thank you for the opportunity to assist in this patients care. Huy Keith, Ph.D., ABPP Board Certified in Clinical Neuropsychology [place] [employer] Psychology [place] Licensed Psychologist #[id number] Problem Qualifiers (1) CVA (cerebral vascular accident): Qualified Codes: I63.9 - Cerebral infarction, unspecified Huy Keith PhD Aug 29, 2017 10:52 am
[2017-08-29 12:44] VITALS: BP 106/66; PULSE 94; RESP 26; TEMP 97.4; O2SAT 99
--- NOTE | 2017-08-29 15:20 | HHI.PR ---
Subjective Remarks Follow-up visit CVA, expressive aphasia, HTN, aspiration pneumonia. Patient seen and examined today. Expressive aphasia, able to follow commands and answer questions. Oriented to person, place, Time. Appears to understand what is going on. Patient states she was busy today she has lots of visitors. States that case management has spoken with her and also her friend that they aren't going to place her in a hotel while she arrange her placement situation. States she is very happy and very thankful that this is going on. Discuss with patient that when she goes home that she should avoid alcohol use, tobacco use, illicit drug use. She states that she will not ever do it because of what she has to experience including prolonged hospitalization. Patient is been smiling and appears to be very happy. Denies pain and discomfort. Denies SOB/ dyspnea. Denies chest pain, palpitations, headaches, dizziness. Denies fevers, chills, n/v/d. Denies dysuria. Objective Vitals Vital Signs Date Time Temp Pulse Resp B/P (MAP) Pulse Ox O2 Delivery O2 Flow Rate FiO2 08/29/17 12:44 97.4 94 26 106/66 (79) 99 08/29/17 11:50 18 08/29/17 08:09 97.4 79 20 119/77 (91) 95 08/29/17 04:00 97.3 85 20 126/70 (88) 91 08/29/17 00:00 98.1 88 18 124/57 (79) 97 08/28/17 20:00 97.6 73 18 117/67 (84) 98 08/28/17 17:17 97.3 90 20 114/79 (91) 94 I/O 08/28/17 08/28/17 08/28/17 08/29/17 08/29/17 08/29/17 07:00 15:00 23:00 07:00 15:00 23:00 Intake Total 480 ml 960 ml Balance 480 ml 960 ml Intake Oral 480 ml 960 ml # Voids 4 10 # Bowel Movements 1 1 Imaging Last Impressions Modified Barium Swallow 08/16/17 0000 Signed Impressions: Service Date/Time: Wednesday, August 16, 2017 00:00 - CONCLUSION: Modified barium swallow performed with speech pathology. Karel Ghosh MD Abdomen/Pelvis CT 08/08/17 0000 Signed Impressions: Service Date/Time: Tuesday, August 08, 2017 11:16 - CONCLUSION: PEG tube site remains patent from stomach to the anterior abdominal wall with induration in the rectus. Patchy airspace disease in both lungs. Rudy Meng MD FACR Abdomen X-Ray 08/06/17 0000 Signed Impressions: Service Date/Time: Sunday, August 06, 2017 00:36 - CONCLUSION: PEG tube overlying the left lower abdomen. Christopher Sarmiento MD Chest X-Ray 07/09/17 0000 Signed Impressions: Service Date/Time: Sunday, July 09, 2017 14:04 - CONCLUSION: 1. Stable mild central bibasilar patchy airspace disease. 2. No significant interval change. Gustavo Santoro MD Head CT 07/06/17 0000 Signed Impressions: Service Date/Time: Thursday, July 06, 2017 09:07 - CONCLUSION: 1. 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 2. Mucous retention cyst within left maxillary and right sphenoid sinuses. Juan Pablo Huffman MD Hepatobiliary Scan Nuclear Medicine 06/28/17 0900 Signed Impressions: Service Date/Time: Wednesday, June 28, 2017 10:17 - CONCLUSION: Nonspecific persistent distention of the gallbladder. No evidence of acute cholecystitis or biliary obstruction. Christopher Gutierrez MD Lung Scan-V Nuclear Medicine 06/24/17 0000 Signed Impressions: Service Date/Time: Saturday, June 24, 2017 12:21 - CONCLUSION: 1. Low probability of pulmonary embolism Jose Richard MD Head Magnetic Resonance Angiography 06/24/17 0000 Signed Impressions: Service Date/Time: Saturday, June 24, 2017 13:37 - CONCLUSION: Negative for major branch vessels obstruction in spite of MRI findings. Rudy Meng MD FACR Brain MRI 06/24/17 0000 Signed Impressions: Service Date/Time: Saturday, June 24, 2017 13:37 - CONCLUSION: Findings consistent with acute infarct left sylvian region anteriorly without hemorrhage. Rudy Meng MD FACR Carotid Artery Ultrasound 06/22/17 0000 Signed Impressions: Service Date/Time: Thursday, June 22, 2017 15:56 - CONCLUSION: No evidence of flow-limiting carotid stenosis. Christopher Leonardo MD Abdomen Ultrasound 06/22/17 0000 Signed Impressions: Service Date/Time: Thursday, June 22, 2017 16:30 - CONCLUSION: Distended gallbladder with wall thickening and internal debris. Mild calyceal dilatation involving the kidneys bilaterally Christopher Leonardo MD Objective Remarks GENERAL: This is a thin appearing, well-developed patient, in no apparent distress. SKIN: Warm and dry. HEENT: Normocephalic. Pupils equal round and reactive. Nose without bleeding. Airway patent. NECK: Trachea midline. No JVD. Supple. CARDIOVASCULAR: Regular rate and rhythm without murmurs, gallops, or rubs. RESPIRATORY: Diminished bases. No wheezes, rales, or rhonchi. GASTROINTESTINAL: Abdomen soft, non-tender, nondistended. Bowel Sounds normoactive x4. MUSCULOSKELETAL: Extremities without clubbing, cyanosis, or edema. NEUROLOGICAL: Awake and alert. Oriented to time, place, person. Expressive Aphasia. Moves all extremities. Mild slurred speech. Procedures PEG tube insertion and removal. A/P Problem List: (1) Thrombocytopenia ICD Code: D69.6 - Thrombocytopenia, unspecified (2) Polycythemia ICD Code: D75.1 - Secondary polycythemia (3) CVA (cerebral vascular accident) ICD Code: I63.9 - Cerebral infarction, unspecified (4) Stroke ICD Code: I63.9 - Cerebral infarction, unspecified Status: Acute (5) Incontinence ICD Code: R32 - Unspecified urinary incontinence (6) Cystitis ICD Code: N30.90 - Cystitis, unspecified without hematuria Assessment and Plan Patient is a 62-year-old female who came into the hospital for evaluation and she was unable to get out of her chair and that she had urinated herself, poorly responsive when EMS got her. Acute CVA , with expressive aphasia and mild right hemiparesis, dysarthria, mild dysphagia- improving- neuro stable - Continue with aspirin - LDL 36 therefore statin is not indicated - PT/OT/speech therapy following - patient has been ambulatory and walking around. Able to do safety evaluation. - Neurology recommends ASA to continue - Continue current treatment - Discuss with patient possible placement. Awaiting for friend to come Tuesday to speak with case management. - Neurology psychology for neurological assessment of capacity - executive function, cognitive function. - Seen by neuropsychology. Appreciate recommendations. Hypertension Cardiomyopathy- SBPs in the 90s-110s - 2-D echo revealed LVEF of 45%. - Continue lisinopril 5mg daily - BB discontinued - Cardiology signed off Course of Hospitalization Problems that had resolved S/P aspiration pneumonia-treated. - s/p Augmentin 07/16/17 Hyperammonemia-resolved Continue lactulose daily Monitor ammonia level as needed. Acute hypoxemic respiratory failure- Resolved Continue with DuoNeb when necessary and maintain oxygen saturation above 92% Dysphagia-improving.- good po PEG has been removed. ST ff S/P PEG infection- resolved S/P treatment with Bactrim course f/u with GI as outpatient. History of chronic of chronic benzodiazepine use Advised on cessation Upper GI and rectal bleed - resolved Elevated transaminases Hepatitis C antibody positive Currently on Protonix Appreciate input from GI who signed off s/p EGD with gastritis and esophagitis. HIDA scan 06/28 with distended gallbladder-no evidence of acute cholecystitis s/p PEG placement / removal History of incontinence Resolved Acute kidney injury Resolved Thrombocytopenia resolved. Prophylaxis - GI - PO Protonix - DVT - SCD/heparin subcutaneous on hold due to GI bleed.- patient up and ambulating- independent Course of hospitalization. This patient is a 62-year-old female who came in to the hospital evaluation of weakness unable to get out of the chair and has urinated herself, poorly responsive when EMS got her period patient was diagnosed with acute CVA, with expressive aphasia and mild right hemiparesis, dysarthria, mild dysphasia which has been improving. Her course of hospitalization was complicated by aspiration pneumonia and was on acute hypoxemic respiratory failure which has been resolved. She also has dysphasia where and she had a PEG placed but then eventually removed as her dysphagia has improved and now on by mouth diet of mechanical soft, thin liquids. She has clinically improved. She is able to ambulate in the hallways without any assistance. She continues to have expressive aphasia however she is oriented to person, place, time, situation. Patient also was evaluated by neuropsychology where and she was deemed to be able to remain on task and remember basic and complex instructions. Memory functioning she was able to remember 2 of 3 words after brief period of time and demonstrates good carryover information. Patient has mild residual neurocognitive deficits but has cognitive capacity to understand the situation and is likely consequences. She is able to manipulate most information rationally although she would benefit supervision from higher level ADLs. Patient has met maximal benefits of hospitalization. Clinically stable for discharge. Plan for discharge with home health care to follow. Discharge Planning Patient has been approved for stay well health insurance, pending disability. CM has been following and has spoke with patient and her friend who is been to be supervising her when she is discharged. Plan for discharge home with home care. Problem Qualifiers (1) CVA (cerebral vascular accident): Qualified Codes: I63.9 - Cerebral infarction, unspecified (2) Stroke: Qualified Codes: I63.9 - Cerebral infarction, unspecified (3) Incontinence: Qualified Codes: R32 - Unspecified urinary incontinence Anum York Aug 29, 2017 15:20
[2017-08-29] MEDS ORDERED: XIFA550T4 PO ×2 (16:04)
[2017-08-29] MEDS ORDERED: ASPI81CH25 PO ×2 (16:04)
[2017-08-29] MEDS ORDERED: AMBI5TAB PO ×2 (16:04)
[2017-08-29] MEDS ORDERED: DEXT10SY2 PO ×2 (16:04)
[2017-08-29] MEDS ORDERED: LISI-519 PO ×2 (16:04)
[2017-08-29] MEDS ORDERED: PANT40TA3 PO ×2 (16:04)
[2017-08-29 16:50] VITALS: BP_SYST 105; PULSE 83; RESP 20; TEMP 97.8; O2SAT 20
[2017-08-29 19:54] VITALS: BP 102/63; PULSE 77; RESP 20; TEMP 97.3; O2SAT 100
[2017-08-29] MEDS: ZOLPIDEM TARTRATE 5 MG TAB PO PRN ×2 (23:21)
[2017-08-30] MEDS: CHLORHEXIDINE GLUCONATE 2 % 1 PACK (2 CLOTHS) TOP SCH ×2 (04:00)
[2017-08-30 05:11] VITALS: BP 112/77; PULSE 80; RESP 18; O2SAT 95
[2017-08-30] MEDS: guaiFENesin/DEXTROMETHORPHAN 200 MG/20 MG/10 ML CUP PO PRN ×4 (05:13→13:24)
[2017-08-30] MEDS: oxyCODONE/ACETAMINOPHEN 10 MG/325 MG TAB PO PRN ×6 (05:15→17:32)
[2017-08-30 07:00] VITALS: BP 110/60; PULSE 90; RESP 20; TEMP 98.2; O2SAT 95
[2017-08-30] MEDS: RIFAXIMIN 550 MG TAB PO SCH ×2 (09:58)
[2017-08-30] MEDS: LISINOPRIL 5 MG TAB PO SCH ×2 (09:58)
[2017-08-30] MEDS: PANTOPRAZOLE SOD 40 MG DELAYED RELEASE TAB PO SCH ×2 (09:58)
[2017-08-30] MEDS: SODIUM CHLORIDE 0.9% FLUSH 10 ML FLUSH IV FLUSH SCH ×2 (09:59)
[2017-08-30] MEDS: ASPIRIN 81 MG CHEW TAB PO SCH ×2 (09:59)
[2017-08-30] MEDS: LACTULOSE SYRUP 20 GM/30 ML CUP PO SCH ×2 (09:59)
[2017-08-30] MEDS: NEOMYCIN/POLYMYXIN/BACITRACIN OINT 0.9 GM PACKET TOPICAL SCH ×2 (10:00)
[2017-08-30 12:59] VITALS: BP 103/71; PULSE 78; RESP 20; TEMP 97.6; O2SAT 94
[2017-08-30] MEDS ORDERED: ALBU6.7H INH ×2 (15:10)
[2017-08-30] MEDS ORDERED: PERC5TAB12 PO ×2 (15:23)
[2017-08-30] MEDS ORDERED: XIFA200T4 PO ×2 (16:11)
--- NOTE | 2017-08-30 16:19 | HHI.DS ---
Discharge Summary Admission Date Jun 22, 2017 at 15:14 Discharge Date: Aug 30, 2017 Admitting Diagnosis Acute respiratory failure stroke (1) Thrombocytopenia ICD Code: D69.6 - Thrombocytopenia, unspecified (2) Polycythemia ICD Code: D75.1 - Secondary polycythemia (3) CVA (cerebral vascular accident) ICD Code: I63.9 - Cerebral infarction, unspecified (4) Stroke ICD Code: I63.9 - Cerebral infarction, unspecified Status: Acute (5) Incontinence ICD Code: R32 - Unspecified urinary incontinence (6) Cystitis ICD Code: N30.90 - Cystitis, unspecified without hematuria Procedures PEG tube insertion and removal. Brief History - From Admission This is a 62-year-old female. Date of admission 06/22/2017. Past medical history includes COPD, depression and ongoing tobaccoism. She chronically uses alprazolam. 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 She [facility] with a history of since Tuesday he's been unable to get her out of the chair. EMS said the patient had urinated on herself. She was poorly responsive and had 1 mm pinpoint pupils. They administered 0.4 of Narcan at which point she moved all of her extremities but didn't vocalize anything intelligible. She was emergently intubated using succinylcholine and etomidate. Included CT the brain which revealed 2.5 cm left insular cortex CVA, patient was noted be in acute kidney injury with a creatinine of 3.8. Lactic acid 2.7. Elevated transaminases/pneumonia and elevated troponin of 2.2. EKG showed normal sinus rhythm with nonspecific ST-T changes. UA revealed cystitis. Urine toxicology screen positive for benzodiazepine and THC. PE at Discharge GENERAL: This is a thin appearing, well-developed patient, in no apparent distress. SKIN: Warm and dry. HEENT: Normocephalic. Pupils equal round and reactive. Nose without bleeding. Airway patent. NECK: Trachea midline. No lymphadenopathy. Supple. CARDIOVASCULAR: Regular rate and rhythm without murmurs, gallops, or rubs. RESPIRATORY: Diminished bases. No wheezes, rales, or rhonchi. GASTROINTESTINAL: Abdomen soft, non-tender, nondistended. Bowel Sounds present most notably left lower quadrant. MUSCULOSKELETAL: Extremities without clubbing, cyanosis, or edema. NEUROLOGICAL: Awake and alert. Pleasant and cooperative anxious for discharge later today. Oriented to time, place, person. Expressive Aphasia. Moves all extremities. Mild slurred speech. Pt update on day of discharge The patient was eager to leave the hospital. She had a question about her pain medication, otherwise no acute concerns. Discussed with nursing. Hospital Course This patient is a 62-year-old female who came in to the hospital for evaluation of weakness, was unable to get out of the chair, had urinated herself , was poorly responsive. When EMS got her the patient was diagnosed with acute CVA with expressive aphasia and mild right hemiparesis, dysarthria, mild dysphasia which has been improving. Her course of hospitalization was complicated by aspiration pneumonia and acute hypoxemic respiratory failure which has resolved. She also had dysphasia and she had a PEG placed but then eventually removed as her dysphagia had improved and now on by mouth diet of mechanical soft, thin liquids. She is able to ambulate in the hallways without any assistance. She continues to have expressive aphasia however she is oriented to person, place, time, situation. Patient also was evaluated by neuropsychology and she was deemed to be able to remain on task and remember basic and complex instructions. Memory functioning she was able to remember 2 of 3 words after a brief period of time and demonstrated good carryover information. Patient has mild residual neurocognitive deficits but has cognitive capacity to understand the situation and its likely consequences. She is able to manipulate most information rationally, though she would benefit from supervision of higher level ADLs. Patient has met maximal benefits of hospitalization. Clinically stable for discharge. Plan for discharge with home health care. Case management assisted. Acute CVA She will continue with aspirin. LDL 36, therefore statin is not indicated. PT/OT /speech therapy following - patient has been ambulatory and walking around. Able to do safety evaluation. Neurology recommends ASA, to continue. Hypertension/ Cardiomyopathy- 2-D echo revealed LVEF of 45%. Continue lisinopril 5mg daily - BB discontinued. Cardiology signed off. Aspiration pneumonia S/p Augmentin. Hyperammonemia Continue lactulose daily. Monitor ammonia level as needed. Acute hypoxemic respiratory failure Continue with DuoNeb when necessary and maintain oxygen saturation above 92%. S/P PEG infection S/P treatment with Bactrim course. F/u with GI as outpatient. Upper GI and rectal bleed/ Elevated transaminases/ Hepatitis C antibody positive Currently on Protonix. Appreciate input from GI who signed off. S/p EGD with gastritis and esophagitis. HIDA scan 06/28 with distended gallbladder-no evidence of acute cholecystitis. S/p PEG placement / removal. Pt Condition on Discharge: Stable Discharge Disposition: Discharge Home Discharge Time: > 30 minutes Discharge Instructions DIET: Follow Instructions for: Soft Diet Speech Therapy-Diet Recommends: Honey Thickened Liquids, Mechanical Soft, Chopped Meat w/Gravy Activities you can perform: See Additionl Instruction Other Activity Instructions: As tolerated Follow up Referrals: PCP Follow-up - 1 Week New Medications: Albuterol 6.7 GM Inh (Proventil Hfa 6.7 GM Inh) 90 Mcg/Act Aer 2 PUFF INH Q4-6H PRN for SHORTNESS OF BREATH, #1 INHALER 2 Refills Oxycodone-Acetaminophen (Percocet) 5-325 mg Tab 1 TAB PO Q6H PRN for PAIN, #28 TAB 0 Refills Aspirin (Aspirin Low Strength) 81 Mg Chew 81 MG PO DAILY for Blood Clot Prevention, #30 EA Dextromethorphan-Guaifenesin (Dextromethorphan/Guaifene 10-100 mg/5Ml) 100 Mg- 10 Mg/5 Ml Syp 10 ML PO Q6H PRN for COUGH, #1 BOTTLE Lisinopril (Lisinopril) 5 Mg Tab 5 MG PO DAILY for Blood Pressure Management, #30 TAB Neomycin/Polymyxin/Bacitracin (Bacitracin/Neomycin/Polymyxin 400-5-5000) 3.5 Mg- 400 Unit-5,000 Unit/Gram Oin 0.9 GM TOPICAL BID for Infection, #1 TUBE Pantoprazole (Pantoprazole) 40 Mg Tab 40 MG PO Q12HR for GERD, #60 TAB Rifaximin (Xifaxan) 200 Mg Tab 400 MG PO Q8HR for Diarrhea for 30 Days, TAB 0 Refills Zolpidem (Ambien) 5 Mg Tab 10 MG PO HS PRN for INSOMNIA, #12 TAB Lawrence Tamez Jr. Aug 30, 2017 16:19 Miguel Winter DO Aug 30, 2017 16:59
[2017-08-30] MEDS ORDERED: NEOS.9T TOPICAL ×2 (17:01)
--- NOTE | 2017-08-30 17:02 | HHI.DCPOC ---
Discharge Care Plan Diagnosis: (1) CVA (cerebral vascular accident) (2) Acute respiratory failure (3) Serum ammonia increased (4) Anxiety Goals to Promote Your Health * To prevent worsening of your condition and complications * To maintain your health at the optimal level Directions to Meet Your Goals Take your medications as prescribed Follow your dietary instruction Follow activity as directed Keep your appointments as scheduled Take your immunizations and boosters as scheduled If your symptoms worsen call your PCP, if no PCP go to Urgent Care Center or Emergency Room Smoking is Dangerous to Your Health. Avoid second hand smoke Call the 24-hour hour crisis hotline for domestic abuse at Miguel Winter DO Aug 30, 2017 17:02
--- NOTE | 2017-08-30 17:02 | HHI.DCPOC ---
Discharge Care Plan Diagnosis: (1) CVA (cerebral vascular accident) (2) Acute respiratory failure (3) Serum ammonia increased (4) Anxiety Goals to Promote Your Health * To prevent worsening of your condition and complications * To maintain your health at the optimal level Directions to Meet Your Goals Take your medications as prescribed Follow your dietary instruction Follow activity as directed Keep your appointments as scheduled Take your immunizations and boosters as scheduled If your symptoms worsen call your PCP, if no PCP go to Urgent Care Center or Emergency Room Smoking is Dangerous to Your Health. Avoid second hand smoke Call the 24-hour hour crisis hotline for domestic abuse at Miguel Winter DO Aug 30, 2017 17:02
--- NOTE | 2017-08-30 17:02 | HHI.DCPOC ---
Discharge Care Plan Diagnosis: (1) CVA (cerebral vascular accident) (2) Acute respiratory failure (3) Serum ammonia increased (4) Anxiety Goals to Promote Your Health * To prevent worsening of your condition and complications * To maintain your health at the optimal level Directions to Meet Your Goals Take your medications as prescribed Follow your dietary instruction Follow activity as directed Keep your appointments as scheduled Take your immunizations and boosters as scheduled If your symptoms worsen call your PCP, if no PCP go to Urgent Care Center or Emergency Room Smoking is Dangerous to Your Health. Avoid second hand smoke Call the 24-hour hour crisis hotline for domestic abuse at Miguel Winter DO Aug 30, 2017 17:02
== END 2017-08-30 17:52 | disposition home or self-care (01) | DRG 64 ==
LOC: NEPC 12:07 → NEDA 15:14 → HIMW 21:00 → N05B 06-29 17:00
PROVIDERS: ADMIT Hospitalist; ATTEND Hospitalist
PROC: 5A1955Z Respiratory Ventilation, Greater than 96 Consecutive Hours (ICD-10-PCS; principal; 2017-06-22)
PROC: 0BH17EZ Insertion of Endotracheal Airway into Trachea, Via Natural or Artificial Opening (ICD-10-PCS; 2017-06-22)
PROC: 0DH63UZ Insertion of Feeding Device into Stomach, Percutaneous Approach (ICD-10-PCS; 2017-07-08)
PROC: 0DB38ZX Excision of Lower Esophagus, Via Natural or Artificial Opening Endoscopic, Diagnostic (ICD-10-PCS; 2017-07-08)
PROC: 0DB68ZX Excision of Stomach, Via Natural or Artificial Opening Endoscopic, Diagnostic (ICD-10-PCS; 2017-07-08)
DX: I63.8 Other cerebral infarction (principal); J96.01 Acute respiratory failure with hypoxia; J69.0 Pneumonitis due to inhalation of food and vomit; R64 Cachexia; J15.6 Pneumonia due to other Gram-negative bacteria; N17.9 Acute kidney failure, unspecified; E87.0 Hyperosmolality and hypernatremia; K72.90 Hepatic failure, unspecified without coma; I43 Cardiomyopathy in diseases classified elsewhere; K29.51 Unspecified chronic gastritis with bleeding; J44.0 Chronic obstructive pulmonary disease with (acute) lower respiratory infection; E87.2 Acidosis; G81.91 Hemiplegia, unspecified affecting right dominant side; E72.20 Disorder of urea cycle metabolism, unspecified; K94.22 Gastrostomy infection; D75.1 Secondary polycythemia; R47.01 Aphasia; I11.9 Hypertensive heart disease without heart failure; R73.9 Hyperglycemia, unspecified; F32.9 Major depressive disorder, single episode, unspecified; K82.8 Other specified diseases of gallbladder; E88.09 Other disorders of plasma-protein metabolism, not elsewhere classified; E83.51 Hypocalcemia; E83.39 Other disorders of phosphorus metabolism; B19.20 Unspecified viral hepatitis C without hepatic coma; E87.6 Hypokalemia; E87.8 Other disorders of electrolyte and fluid balance, not elsewhere classified; R62.7 Adult failure to thrive; R13.12 Dysphagia, oropharyngeal phase; G47.00 Insomnia, unspecified; K20.9 Esophagitis, unspecified; D64.9 Anemia, unspecified; R47.1 Dysarthria and anarthria; G31.84 Mild cognitive impairment of uncertain or unknown etiology; F12.10 Cannabis abuse, uncomplicated; F17.210 Nicotine dependence, cigarettes, uncomplicated; F41.9 Anxiety disorder, unspecified; Z23 Encounter for immunization; Z68.20 Body mass index [BMI] 20.0-20.9, adult
CPT/HCPCS: 31500; 36600; 51702; 70450; 70544; 70551; 71010; 74000; 74177; 74230; 76700; 76937; 78226; 78582; 80048; 80053; 80061; 80074; 80202; 80307; 81001; 82140; 82150; 82550; 82552; 82570; 82805; 82948; 83036; 83605; 83690; 83735; 84100; 84300; 84439; 84443; 84484; 85007; 85014; 85018; 85025; 85027; 85384; 85610; 85730; 86850; 86900; 86901; 87040; 87070; 87077; 87086; 87106; 87185; 87186; 87205; 87522; 87641; 87804; 87902; 88305; 88312; 90686; 90732; 93005; 93306; 93880; 94002; 94003; 94150; 94640; 94664; 94667; 95819; 96361; 96365; 96374; 96375; A9537; A9540; A9567; C9113; J0330; J0610; J0690; J0692; J1100; J1170; J1630; J1644; J1815; J1940; J1956; J2060; J2270; J2543; J2920; J2930; J3370; J3480; J7030; J7050; J7613; Q2038; Q9963; Q9967

== ENCOUNTER 2018-03-28 12:01 | Emergency (ER) | payer MEDICAID, OTHER ==
[~2018-03-28] VITALS: Ht 165.1 cm; Wt 50.0 kg
[~2018-03-28 12:01] MED LIST changes: +ALBU6.7H INH; +AMBI5TAB PO; +ASPI81CH25 PO; -DARV PO; +DEXT10SY2 PO; +LISI-519 PO; +NEOS.9T TOPICAL; +PANT40TA3 PO; -PENI500T PO; +PERC5TAB12 PO; +XIFA200T4 PO; -Z.0.NO CURRENT MEDS
[2018-03-28 12:04] VITALS: BP 148/106; PULSE 110; RESP 26; TEMP 97.7; O2SAT 97
--- NOTE | 2018-03-28 13:04 | RADRPT ---
EXAM DATE: 03/28/2018 12:55 PM EDT AGE/SEX: 62 years / Female INDICATIONS: Short of breath. CLINICAL DATA: This is the patient's initial encounter. Patient reports that signs and symptoms have been present for 2 days and indicates a pain score of 9/10. MEDICAL/SURGICAL HISTORY: Chronic obstructive pulmonary disease. Stroke. None. COMPARISON: [facility] – [place], 07/09/2017. . FINDINGS: The heart size is normal. The lungs are hyperinflated. The lungs appear grossly clear. The bony struc tures are unremarkable. CONCLUSION: Hyperinflated lungs consistent with COPD. Electronically signed by: Christopher Sarmiento MD 03/28/2018 1:03 PM EDT
[2018-03-28 13:15] LABS: AUTOMATED NEUTROPHIL # 4.8 TH/MM3 (1.8-7.7); BASOPHIL % 0.5 % (0.0-2.0); EOSINOPHIL # 0.1 TH/MM3 (0-0.4); EOSINOPHIL % 1.1 % (0.0-4.0); HEMATOCRIT 45.3 % (35.0-46.0); HEMOGLOBIN 14.9 GM/DL (11.6-15.3); LYMPH % 33.1 % (9.0-44.0); LYMPHOCYTE # 2.7 TH/MM3 (1.0-4.8); MEAN PLATELET VOLUME 9.4 FL (7.0-11.0); MONO % 5.2 % (0.0-8.0); MONOCYTE # 0.4 TH/MM3 (0-0.9); NEUT % 60.1 % (16.0-70.0); PLATELET COUNT 263 TH/MM3 (150-450); RED BLOOD COUNT 5.15 MIL/MM3 (4.00-5.30); RED CELL DISTRIBUTION WIDTH 13.6 % (11.6-17.2); WHITE BLOOD COUNT 8.1 TH/MM3 (4.0-11.0)
[2018-03-28 13:32] VITALS: BP 161/94; PULSE 83; RESP 21; O2SAT 99
[2018-03-28 13:35] VITALS: BP 161/94; PULSE 84; RESP 21; O2SAT 98
[2018-03-28 13:35] LABS: BICARBONATE 24.2 MEQ/L (21.0-32.0); BLOOD UREA NITROGEN 11 MG/DL (7-18); CALCIUM 10.1 MG/DL (8.5-10.1); CHLORIDE 103 MEQ/L (98-107); CREATININE 0.83 MG/DL (0.50-1.00); GLOMERULAR FILTRATION RATE 70 ML/MIN (>89); GLUCOSE,RANDOM 91 MG/DL (74-106); SODIUM (NA) 137 MEQ/L (136-145)
[2018-03-28 13:38] LABS: TROPONIN I LESS THAN 0.02 NG/ML (0.02-0.05)
[2018-03-28] MEDS ORDERED: SYMB160A INH (13:39)
[2018-03-28] MEDS ORDERED: oxyCODONE/ACETAMINOPHEN 5 MG/325 MG TAB PO ONE ×2 (13:45→16:30)
[2018-03-28] MEDS: RESP: ALBUTEROL 2.5 MG/IPRATROPIUM 0.5 MG NEB (SCH) INH (13:45)
[2018-03-28] MEDS ORDERED: methylPREDNISolone SOD SUCC 125 MG/2 ML VIAL IV PUSH ONE ×2 (13:45→16:00)
--- NOTE | 2018-03-28 14:07 | PD ---
HPI Chief Complaint: Respiratory Symptoms Time Seen by Provider: 13:25 Travel History International Travel<30 days: No Contact w/Intl Traveler<30days: No Traveled to known affect area: No History of Present Illness HPI Patient is a 62 year old female with history of CVA, chronic pain on percocets, COPD, htn, hyperlipidemia, presents to the ER with complaints of shortness of breath as well as pain all over her body. Patient reports that she is on Percocets for her chronic pain, as she has pain to her body, back and legs. Reports that she has run out of her mediations and needs a refill on her percocets. Reports that her pain is at baseline, she has an appointment with her primary care doctor next week for refills on her percocets. Patient also reports that she has been feeling short of breath for the past 2 days, patient reports that she has had a nonproductive cough and wheeze. Patient is a smoker with history of COPD. Patient denies any fevers or chills, denies any chest pain at this time. Patient with no other complaints. PFSH Past Medical History Cerebrovascular Accident: Yes GERD: Yes Hypertension: Yes Respiratory: Yes ( copd) Tetanus Vaccination: Unknown Influenza Vaccination: Yes Past Surgical History Abdominal Surgery: Yes Hysterectomy: Yes Social History Alcohol Use: No Tobacco Use: Yes (1 PACK A DAY FOR 20 YEARS) Substance Use: No Allergies-Medications (Allergen,Severity, Reaction): Coded Allergies: No Known Allergies (Verified Adverse Reaction, Unknown, 03/28/18) Reported Meds & Prescriptions Reported Meds & Active Scripts Active Percocet (Oxycodone-Acetaminophen) 5-325 mg Tab 1 Tab PO Q6H PRN Proair Hfa 8.5 GM Inh (Albuterol Sulfate) 90 Mcg/Act Aer 2 Puff INH Q4-6H PRN 108 mcg/actuation Azithromycin 500 Mg Tab 500 Mg PO DAILY Prednisone 20 Mg Tab 20 Mg PO BID 5 Days Bacitracin/Neomycin/Polymyxin 400-5-5000 (Neomycin/Polymyxin/Bacitracin) 3.5 Mg- 400 Unit-5,000 Unit/Gram Oin 0.9 Gm TOPICAL BID Xifaxan (Rifaximin) 200 Mg Tab 400 Mg PO Q8HR 30 Days Percocet (Oxycodone-Acetaminophen) 5-325 mg Tab 1 Tab PO Q6H PRN Proventil Hfa 6.7 GM Inh (Albuterol Sulfate) 90 Mcg/Act Aer 2 Puff INH Q4-6H PRN Ambien (Zolpidem Tartrate) 5 Mg Tab 10 Mg PO HS PRN Pantoprazole (Pantoprazole Sodium) 40 Mg Tab 40 Mg PO Q12HR Aspirin Low Strength (Aspirin) 81 Mg Chew 81 Mg PO DAILY Lisinopril 5 Mg Tab 5 Mg PO DAILY Reported Symbicort Inh (Budesonide/Formoterol Fumarate) 160-4.5 Mcg/Act Aero 2 Puff INH Q12HR Review of Systems General / Constitutional: No: Fever Eyes: No: Visual changes HENT: No: Headaches Cardiovascular: No: Chest Pain or Discomfort Respiratory: Positive: Cough, Shortness of Breath, Wheezing Gastrointestinal: No: Abdominal Pain Genitourinary: No: Dysuria Musculoskeletal: No: Pain Skin: No Rash Neurologic: No: Weakness Psychiatric: No: Depression Endocrine: No: Polydipsia Hematologic/Lymphatic: No: Easy Bruising Physical Exam Narrative GENERAL: Mild distress SKIN: Focused skin assessment warm/dry. HEAD: Atraumatic. Normocephalic. EYES: Pupils equal and round. No scleral icterus. No injection or drainage. ENT: No nasal bleeding or discharge. Mucous membranes pink and moist. NECK: Trachea midline. No JVD. CARDIOVASCULAR: Regular rate and rhythm. No murmur appreciated. RESPIRATORY: No accessory muscle use.. Breath sounds equal bilaterally. Patient with scattered wheezing on exam GASTROINTESTINAL: Abdomen soft, non-tender, nondistended. Hepatic and splenic margins not palpable. MUSCULOSKELETAL: No obvious deformities. No clubbing. No cyanosis. No edema. NEUROLOGICAL: Awake and alert. No obvious cranial nerve deficits. Motor grossly within normal limits. Normal speech. PSYCHIATRIC: Appropriate mood and affect; insight and judgment normal. Data Data Last Documented VS Vital Signs Date Time Temp Pulse Resp B/P (MAP) Pulse Ox O2 Delivery O2 Flow Rate FiO2 03/28/18 16:44 81 18 157/97 (117) 98 Room Air 03/28/18 12:04 97.7 Orders Orders Electrocardiogram (03/28/18 12:07) Complete Blood Count With Diff (03/28/18 12:07) Basic Metabolic Panel (Bmp) (03/28/18 12:07) Ckmb (Isoenzyme) Profile (03/28/18 12:07) Troponin I (03/28/18 12:07) Iv Access Insert/Monitor (03/28/18 12:07) Ecg Monitoring (03/28/18 12:07) Oxygen Administration (03/28/18 12:07) Oximetry (03/28/18 12:07) Chest, Pa & Lat (03/28/18 12:07) Methylprednisolone So Succ Inj (Solumedr (03/28/18 13:45) Albuterol-Ipratropium Neb (Duoneb Neb) (03/28/18 13:45) Oxycodone-Acetamin 5-325 Mg (Percocet (03/28/18 13:45) Methylprednisolone So Succ Inj (Solumedr (03/28/18 16:00) Prednisone (Deltasone) (03/28/18 16:30) Oxycodone-Acetamin 5-325 Mg (Percocet (03/28/18 16:30) Labs Laboratory Tests Test 03/28/18 12:24 White Blood Count 8.1 TH/MM3 Red Blood Count 5.15 MIL/MM3 Hemoglobin 14.9 GM/DL Hematocrit 45.3 % Mean Corpuscular Volume 88.0 FL Mean Corpuscular Hemoglobin 29.0 PG Mean Corpuscular Hemoglobin Concent 33.0 % Red Cell Distribution Width 13.6 % Platelet Count 263 TH/MM3 Mean Platelet Volume 9.4 FL Neutrophils (%) (Auto) 60.1 % Lymphocytes (%) (Auto) 33.1 % Monocytes (%) (Auto) 5.2 % Eosinophils (%) (Auto) 1.1 % Basophils (%) (Auto) 0.5 % Neutrophils # (Auto) 4.8 TH/MM3 Lymphocytes # (Auto) 2.7 TH/MM3 Monocytes # (Auto) 0.4 TH/MM3 Eosinophils # (Auto) 0.1 TH/MM3 Basophils # (Auto) 0.0 TH/MM3 CBC Comment DIFF FINAL Differential Comment Blood Urea Nitrogen 11 MG/DL Creatinine 0.83 MG/DL Random Glucose 91 MG/DL Calcium Level 10.1 MG/DL Sodium Level 137 MEQ/L Potassium Level 4.0 MEQ/L Chloride Level 103 MEQ/L Carbon Dioxide Level 24.2 MEQ/L Anion Gap 10 MEQ/L Estimat Glomerular Filtration Rate 70 ML/MIN Total Creatine Kinase 73 U/L Troponin I LESS THAN 0.02 NG/ML MDM Medical Decision Making Medical Screen Exam Complete: Yes Emergency Medical Condition: Yes Medical Record Reviewed: Yes Interpretation(s) EKG at 1213 sinus tachycardia at 105 beats minute, QT/QTc 302/363, there are no acute ST or T-wave changes. ekg similar to previous ekgs Vital Signs Date Time Temp Pulse Resp B/P (MAP) Pulse Ox O2 Delivery O2 Flow Rate FiO2 03/28/18 13:35 84 21 98 Room Air 03/28/18 13:35 84 21 161/94 (116) 98 Room Air 03/28/18 13:32 83 21 161/94 (116) 99 Room Air 03/28/18 13:32 98 Room Air 03/28/18 12:04 97.7 110 26 148/106 (120) 97 Differential Diagnosis chronic pain, copd exacerbation, pneumonia, acs, arrhythmia Narrative Course During the course of the patients emergency department visit, the patients history, examination, and differential diagnosis were reviewed with the patient. The patient was placed on a clinical research monitor with oximetry and frequent blood pressure monitoring. The patient had an IV access obtained and blood work sent for analysis. The patient was initially provided a dose of Percocet for her chronic pain. The patients laboratory studies were reviewed and remarkable for Laboratory Tests Test 03/28/18 12:24 White Blood Count 8.1 TH/MM3 (4.0-11.0) Red Blood Count 5.15 MIL/MM3 (4.00-5.30) Hemoglobin 14.9 GM/DL (11.6-15.3) Hematocrit 45.3 % (35.0-46.0) Mean Corpuscular Volume 88.0 FL (80.0-100.0) Mean Corpuscular Hemoglobin 29.0 PG (27.0-34.0) Mean Corpuscular Hemoglobin Concent 33.0 % (32.0-36.0) Red Cell Distribution Width 13.6 % (11.6-17.2) Platelet Count 263 TH/MM3 (150-450) Mean Platelet Volume 9.4 FL (7.0-11.0) Neutrophils (%) (Auto) 60.1 % (16.0-70.0) Lymphocytes (%) (Auto) 33.1 % (9.0-44.0) Monocytes (%) (Auto) 5.2 % (0.0-8.0) Eosinophils (%) (Auto) 1.1 % (0.0-4.0) Basophils (%) (Auto) 0.5 % (0.0-2.0) Neutrophils # (Auto) 4.8 TH/MM3 (1.8-7.7) Lymphocytes # (Auto) 2.7 TH/MM3 (1.0-4.8) Monocytes # (Auto) 0.4 TH/MM3 (0-0.9) Eosinophils # (Auto) 0.1 TH/MM3 (0-0.4) Basophils # (Auto) 0.0 TH/MM3 (0-0.2) CBC Comment DIFF FINAL Differential Comment Blood Urea Nitrogen 11 MG/DL (7-18) Creatinine 0.83 MG/DL (0.50-1.00) Random Glucose 91 MG/DL (74-106) Calcium Level 10.1 MG/DL (8.5-10.1) Sodium Level 137 MEQ/L (136-145) Potassium Level 4.0 MEQ/L (3.5-5.1) Chloride Level 103 MEQ/L (98-107) Carbon Dioxide Level 24.2 MEQ/L (21.0-32.0) Anion Gap 10 MEQ/L (5-15) Estimat Glomerular Filtration Rate 70 ML/MIN (>89) Total Creatine Kinase 73 U/L (26-192) Troponin I LESS THAN 0.02 NG/ML Radiology studies were reviewed and remarkable for Last Impressions Chest X-Ray 03/28/18 1207 Signed Impressions: CONCLUSION: Hyperinflated lungs consistent with COPD. Patient refusing Solu-Medrol, patient only requesting her pain medications. Patient with being treated for COPD exacerbation, patient demanding more pain medications as she normally takes the 10 mg tabs of percocet. Patient is ambulating in the ER without difficulty. Patient understands that I will give her a script for 6 Percocet, she will need to follow up with her pcp for further scripts and refills on her chronic pain medications. Diagnosis Primary Impression: Chronic pain disorder Additional Impression: COPD exacerbation Patient Instructions: General Instructions, Narcotic given in the ED Additional Instructions: Please provide patient with a copy of their lab work and studies at discharge* * Please follow up with your primary care doctor in 2-3 days Return to the ER if symptoms worsen or progress Return to the ER as needed Please follow up with your primary care doctor for further refills on your chronic pain medications Med/Other Pt SpecificInfo: Prescription(s) given Scripts Oxycodone-Acetaminophen (Percocet) 5-325 mg Tab 1 TAB PO Q6H Y for PAIN, #6 TAB 0 Refills Prov: MariaD Watts DO 03/28/18 Albuterol 8.5 GM Inh (Proair Hfa 8.5 GM Inh) 90 Mcg/Act Aer 2 PUFF INH Q4-6H Y for SHORTNESS OF BREATH, #1 INHALER 0 Refills 108 mcg/actuation Prov: Maria D Watts DO 03/28/18 Azithromycin (Azithromycin) 500 Mg Tab 500 MG PO DAILY for Infection, #5 TAB 0 Refills Prov: Maria D Watts DO 03/28/18 Prednisone (Prednisone) 20 Mg Tab 20 MG PO BID for 5 Days, #10 TAB 0 Refills Prov: Maria D Watts DO 03/28/18 Disposition: 01 DISCHARGE HOME Condition: Stable Maria D Watts DO Mar 28, 2018 14:07
[2018-03-28] MEDS ORDERED: PERC5TAB12 PO (16:26)
[2018-03-28] MEDS ORDERED: AZIT500T2 PO (16:26)
[2018-03-28] MEDS ORDERED: PRED20 PO (16:26)
[2018-03-28] MEDS ORDERED: ALBUAER3 INH (16:26)
[2018-03-28] MEDS ORDERED: predniSONE 20 MG TAB PO ONE (16:30)
[2018-03-28 16:43] VITALS: BP 157/97
[2018-03-28 16:44] VITALS: BP 157/97; PULSE 81; RESP 18; O2SAT 98
--- NOTE | 2018-03-29 19:31 | EKG ---
Date Performed: 03/28/2018 Time Performed: 12:13:14 PTAGE: 62 years EKG: SINUS TACHYCARDIA INDETERMINATE AXIS RIGHT ATRIAL ENLARGEMENT POSSIBLE LEFT ATRIAL ENLARGEM ENT INFERIOR MYOCARDIAL INFARCTION ABNORMAL ECG PREVIOUS TRACING : 06/22/2017 13.57 Since the previous tracing, no significant change noted DOCTOR: Dakota Rose Interpretating Date/Time 03/29/2018 19:29:56
== END 2018-03-28 17:08 | disposition home or self-care (01) ==
LOC: NEPC 12:01
DX: J44.1 Chronic obstructive pulmonary disease with (acute) exacerbation (principal); G89.29 Other chronic pain; R00.0 Tachycardia, unspecified; I10 Essential (primary) hypertension; E78.5 Hyperlipidemia, unspecified; F17.210 Nicotine dependence, cigarettes, uncomplicated; Z86.73 Personal history of transient ischemic attack (TIA), and cerebral infarction without residual deficits; Z79.899 Other long term (current) drug therapy
CPT/HCPCS: 71046; 80048; 82550; 84484; 85025; 93005; 94664; 99285; J7512